=== PATIENT | female | born 1955 | race Caucasian/White ===

== ENCOUNTER → 2017-07-12 | Outpatient (CLI) | payer MEDICARE | LOC: M RAD 12:57 | DX: J84.10 Pulmonary fibrosis, unspecified (principal); J44.1 Chronic obstructive pulmonary disease with (acute) exacerbation; R05 Cough; R06.02 Shortness of breath | CPT/HCPCS: 71046 ==

== ENCOUNTER → 2017-10-12 | Outpatient (REF) | payer MEDICARE, MEDICAID ==
[2017-10-12 17:14] LABS: INR 0.95; PARTIAL THROMBOPLASTIN TIME 29.7 SECONDS (26.8-37.9); PROTHROMBIN TIME 12.8 SECONDS (12.4-14.5)
[2017-10-16 10:09] LABS: HUMAN GROWTH HORMONE 0.1 ng/mL (0.0-10.0)
[2017-10-16 10:09] LABS: ADRENOCORTICOTROPHIC HORMONE 1.8 pg/mL (7.2-63.3)
== END ==
LOC: M LAB REF 16:24
DX: D44.3 Neoplasm of uncertain behavior of pituitary gland (principal)
CPT/HCPCS: 83003

== ENCOUNTER 2017-10-18 14:50 | Emergency (ER) | payer MEDICARE, MEDICAID ==
[2017-10-18 15:23] LABS: KETONE, URINE AUTO RFX NEGATIVE (NEGATIVE); LEUKOCYTE ESTERASE UR AUTO RFX NEGATIVE (NEGATIVE); NITRITE, URINE AUTO RFX NEGATIVE (NEGATIVE); RBC, URINE AUTO RFX 0 /HPF (0-3); SPECIFIC GRAVITY UR AUTO RFX 1.003 (1.002-1.035); SQUAM EPITHELIAL CELL UR AURFX 0 /HPF (0-6); WBC, URINE AUTO RFX 1 /HPF (0-3)
== END 2017-10-18 18:36 | disposition left against medical advice (07) ==
LOC: M ED 14:50
DX: Z53.21 Procedure and treatment not carried out due to patient leaving prior to being seen by health care provider (principal)

== ENCOUNTER → 2017-10-27 | Outpatient (CLI) | payer MEDICARE, MEDICAID ==
[2017-10-27 17:31] LABS: ANION GAP 7 MEQ/L (8-16); BLOOD UREA NITROGEN 20 MG/DL (7-18); CALCIUM LEVEL 8.9 MG/DL (8.8-10.2); CARBON DIOXIDE LEVEL 26 MEQ/L (21-32); CHLORIDE LEVEL 111 MEQ/L (98-107); CREATININE FOR GFR 1.14 MG/DL (0.55-1.30); GLOMERULAR FILTRATION RATE 51.2 (>45); GLUCOSE, FASTING 101 MG/DL (70-100); POTASSIUM SERUM 4.4 MEQ/L (3.5-5.1); SODIUM LEVEL 144 MEQ/L (136-145)
[2017-10-27 17:36] LABS: BASO # 0.1 10^3/uL (0.0-0.2); BASO % 0.8 % (0.0-1.0); EOS # 0.1 10^3/uL (0.0-0.50); EOS % 0.6 % (0.0-3.0); HEMATOCRIT 44.6 % (36.0-47.0); HEMOGLOBIN 14.5 g/dl (12.0-15.5); IMMATURE GRANULOCYTE % 0.4 % (0-3.0); LYMPH # 1.6 10^3/uL (1.5-4.5); LYMPH % 15.2 % (24.0-44.0); MEAN CORPUSCULAR HEMOGLOBIN 30.7 pg (27.0-33.0); MEAN CORPUSCULAR HGB CONC 32.5 g/dl (32.0-36.5); MEAN CORPUSCULAR VOLUME 94.5 fl (80.0-96.0); MONO # 0.4 10^3/uL (0.0-0.8); MONO % 3.8 % (0.0-5.0); NEUTROPHILS # 8.2 10^3/uL (1.8-7.7); NEUTROPHILS % 79.2 % (36.0-66.0); PLATELET COUNT, AUTOMATED 329 10^3/uL (150-450); RED BLOOD COUNT 4.72 10^6/uL (4.00-5.40); RED CELL DISTRIBUTION WIDTH 14.4 % (11.5-14.5); WHITE BLOOD COUNT 10.4 10^3/uL (4.0-10.0)
== END ==
LOC: M LRY 13:19
DX: E78.4 Other hyperlipidemia (principal); I10 Essential (primary) hypertension; R07.9 Chest pain, unspecified

== ENCOUNTER → 2017-10-27 | Outpatient (CLI) | payer MEDICARE, MEDICAID | LOC: M RAD 17:28 | DX: D49.7 Neoplasm of unspecified behavior of endocrine glands and other parts of nervous system (principal); N28.9 Disorder of kidney and ureter, unspecified; Z90.2 Acquired absence of lung [part of]; E78.4 Other hyperlipidemia; I10 Essential (primary) hypertension; R07.9 Chest pain, unspecified | CPT/HCPCS: 71250 ==

== ENCOUNTER 2017-12-14 22:14 | Emergency (ER) | payer MEDICARE, MEDICAID ==
[2017-12-14 22:24] LABS: BEDSIDE GLUCOSE 79 MG/DL (80-115)
[2017-12-14 22:30] LABS: ABG BASE EXCESS 3.2 (-2.0-2.0); ABG HCO3 25.4 MEQ/L (22.0-26.0); ABG O2 SATURATION 97.2 % (95.0-99.0); ABG PARTIAL PRESSURE O2 79.6 mmHg (75.0-100.0); ABG STANDARD HCO3 27.3 MEQ/L (22.0-26.0); ABG TOTAL CO2 26.4 MEQ/L (23.0-31.0); ABG pH (ARTERIAL) 7.517 UNITS (7.350-7.450)
[2017-12-14 22:34] LABS: BASO # 0.1 10^3/uL (0.0-0.2); BASO % 1.1 % (0.0-1.0); EOS # 0.2 10^3/uL (0.0-0.50); EOS % 1.5 % (0.0-3.0); HEMATOCRIT 45.9 % (36.0-47.0); HEMOGLOBIN 15.4 g/dl (12.0-15.5); IMMATURE GRANULOCYTE % 0.5 % (0-3.0); LYMPH # 2.8 10^3/uL (1.5-4.5); LYMPH % 23.2 % (24.0-44.0); MEAN CORPUSCULAR HGB CONC 33.6 g/dl (32.0-36.5); MEAN CORPUSCULAR VOLUME 92.4 fl (80.0-96.0); MONO # 0.8 10^3/uL (0.0-0.8); MONO % 6.3 % (0.0-5.0); NEUTROPHILS # 8.2 10^3/uL (1.8-7.7); NEUTROPHILS % 67.4 % (36.0-66.0); PLATELET COUNT, AUTOMATED 333 10^3/uL (150-450); RED BLOOD COUNT 4.97 10^6/uL (4.00-5.40); RED CELL DISTRIBUTION WIDTH 13.5 % (11.5-14.5); WHITE BLOOD COUNT 12.2 10^3/uL (4.0-10.0)
[2017-12-14 22:57] LABS: LACTIC ACID SEPSIS PROTOCOL 1.1 MMOL/L (0.4-2.0)
[2017-12-14 22:58] LABS: ANION GAP 4 MEQ/L (8-16); BLOOD UREA NITROGEN 18 MG/DL (7-18); CALCIUM LEVEL 8.8 MG/DL (8.8-10.2); CARBON DIOXIDE LEVEL 29 MEQ/L (21-32); CHLORIDE LEVEL 112 MEQ/L (98-107); CK-MB VALUE MASS 1.1 NG/ML (<3.6); CPK CREATINE PHOSPHOKINASE 51 U/L (26-192); CREATININE FOR GFR 0.98 MG/DL (0.55-1.30); GLOMERULAR FILTRATION RATE > 60.0 (>45); GLUCOSE, FASTING 79 MG/DL (70-100); MB/CK RELATIVE INDEX 2.15 (< OR =4); NT-PRO BNP 483 PG/ML (<125); POTASSIUM SERUM 4.4 MEQ/L (3.5-5.1); SODIUM LEVEL 145 MEQ/L (136-145); TROPONIN I < 0.02 NG/ML (< 0.10)
[2017-12-15] MEDS: KETOROLAC 30 MG/ML VIAL (J1885) IV (03:44)
== END 2017-12-15 05:01 | disposition left against medical advice (07) ==
LOC: M ED 12-15 05:01
DX: G45.9 Transient cerebral ischemic attack, unspecified (principal); E23.7 Disorder of pituitary gland, unspecified; Z87.891 Personal history of nicotine dependence; Z79.82 Long term (current) use of aspirin; Z79.899 Other long term (current) drug therapy; Z88.2 Allergy status to sulfonamides
CPT/HCPCS: J1885

== ENCOUNTER → 2018-02-27 | Outpatient (CLI) | payer MEDICARE, MEDICAID ==
[2018-02-27 21:03] LABS: ANION GAP 8 MEQ/L (8-16); BLOOD UREA NITROGEN 21 MG/DL (7-18); CALCIUM LEVEL 9.4 MG/DL (8.8-10.2); CARBON DIOXIDE LEVEL 26 MEQ/L (21-32); CHLORIDE LEVEL 111 MEQ/L (98-107); CREATININE FOR GFR 1.21 MG/DL (0.55-1.30); GLOMERULAR FILTRATION RATE 47.8 (>45); GLUCOSE, FASTING 88 MG/DL (70-100); POTASSIUM SERUM 4.8 MEQ/L (3.5-5.1); SODIUM LEVEL 145 MEQ/L (136-145)
== END ==
LOC: M LRY 15:00
DX: D49.6 Neoplasm of unspecified behavior of brain (principal)
CPT/HCPCS: 80048

== ENCOUNTER → 2018-04-11 | Outpatient (CLI) | payer MEDICARE, MEDICAID ==
[~2018-04-11] MED LIST: ISOVUE-370 76% 100ML VIAL (Q9967) As Ordered
== END ==
LOC: M RAD 17:11
DX: Z01.812 Encounter for preprocedural laboratory examination (principal); C34.91 Malignant neoplasm of unspecified part of right bronchus or lung; D49.1 Neoplasm of unspecified behavior of respiratory system; J84.10 Pulmonary fibrosis, unspecified; N28.1 Cyst of kidney, acquired; N28.89 Other specified disorders of kidney and ureter
CPT/HCPCS: Q9967

== ENCOUNTER → 2018-08-27 | Outpatient (CLI) | payer MEDICARE, MEDICAID ==
[~2018-08-27] MED LIST changes: +ADVA115A INH; +ECOT81TA5 PO; +GABA-843 PO; +GABA-845 PO; -ISOVUE-370 76% 100ML VIAL (Q9967) As Ordered; +METO1TAB33 PO; +METO1TAB7 PO; +NITR0.4S14 SL; +OMEP40CA2 PO; +PLAV1TAB2 PO; +PRAV40TA2 PO; +PRED5TA PO; +SUMA50TA2 PO; +TIZA2TA PO; +TROK1CAP5 PO; +VALS1TAB67 PO; +VENTAER INH; +VERA40TA PO
--- NOTE | 2018-08-27 11:48 | REP ---
DUPLEX DOPPLER EVALUATION RIGHT SUPRACLAVICULAR NECK: Real-time sonographic evaluation and duplex Doppler interrogation of the right neck soft tissues performed for a pulsatile mass. In this region the pulsatile mass corresponds to the right subclavian artery which is normal in caliber. Peak systolic velocity proximally in the right subclavian artery is 76.1 cm/s and distally 59.4 cm/s, with triphasic waveforms. No other adjacent mass is seen. IMPRESSION: Pulsatile "mass" in the right supraclavicular neck soft tissues corresponds to the right subclavian artery. This is normal in caliber. No mass or aneurysm is seen. Electronically Signed by Mark Link MD 08/27/2018 12:47 P
== END ==
LOC: M RAD 10:42
PROVIDERS: ATTEND Family Medicine
DX: R22.1 Localized swelling, mass and lump, neck (principal)

== ENCOUNTER → 2018-10-31 | Outpatient (CLI) | payer MEDICARE, MEDICAID ==
[2018-10-31 16:04] LABS: BASO # 0.1 10^3/uL (0.0-0.2); BASO % 0.9 % (0.0-1.0); EOS # 0.2 10^3/uL (0.0-0.50); HEMATOCRIT 47.6 % (36.0-47.0); HEMOGLOBIN 15.6 g/dl (12.0-15.5); LYMPH # 1.8 10^3/uL (1.5-4.5); LYMPH % 11.8 % (24.0-44.0); MEAN CORPUSCULAR HEMOGLOBIN 29.8 pg (27.0-33.0); MEAN CORPUSCULAR HGB CONC 32.8 g/dl (32.0-36.5); MONO # 0.6 10^3/uL (0.0-0.8); MONO % 4.1 % (0.0-5.0); NEUTROPHILS # 12.1 10^3/uL (1.8-7.7); NEUTROPHILS % 81.6 % (36.0-66.0); PLATELET COUNT, AUTOMATED 336 10^3/uL (150-450); RED BLOOD COUNT 5.23 10^6/uL (4.00-5.40); WHITE BLOOD COUNT 14.8 10^3/uL (4.0-10.0)
[2018-10-31 16:27] LABS: HEMOGLOBIN A1c 5.4 %
[2018-10-31 16:33] LABS: ALBUMIN 4.1 GM/DL (3.2-5.2); BILIRUBIN,TOTAL 0.4 MG/DL (0.2-1.0); CHOLESTEROL RISK RATIO 2.737 (<5); CREATININE FOR GFR 1.02 MG/DL (0.55-1.30); FREE T4 0.73 NG/DL (0.76-1.46); GLOMERULAR FILTRATION RATE 58.1 (>45); POTASSIUM SERUM 4.5 MEQ/L (3.5-5.1); THYROID STIMULATING HORMONE 0.813 uIU/ML (0.358-3.740); TOTAL PROTEIN 7.6 GM/DL (6.4-8.2); URIC ACID 5.2 MG/DL (2.6-6.0)
[2018-10-31 16:51] LABS: CORTISOL AM 7.8 UG/DL (4.3-22.4)
== END ==
LOC: M LAB 15:11
PROVIDERS: ATTEND Family Medicine
DX: R60.0 Localized edema (principal); G62.9 Polyneuropathy, unspecified; E27.49 Other adrenocortical insufficiency; N18.3 Chronic kidney disease, stage 3 (moderate); M79.672 Pain in left foot; R35.8 Other polyuria; I25.118 Atherosclerotic heart disease of native coronary artery with other forms of angina pectoris; M79.671 Pain in right foot; M54.81 Occipital neuralgia
CPT/HCPCS: 36415; 80053; 80061; 82533; 82607; 83036; 83880; 84439; 84443; 84550; 85025; G0463

== ENCOUNTER 2019-02-27 11:21 | Emergency (ER) | payer MEDICARE, MEDICAID ==
[~2019-02-27] VITALS: Ht 152.4 cm; Wt 58.2 kg
[2019-02-27] MEDS ORDERED: AMLO5TAB6 (11:51)
[2019-02-27] MEDS ORDERED: OMEP-218 (11:51)
[2019-02-27] MEDS ORDERED: IRBE150T12 (11:51)
[2019-02-27] MEDS ORDERED: ATOR80TA59 (11:51)
[2019-02-27] MEDS ORDERED: ONDANSETRON 4MG/2ML VIAL (J2405) IV ONE (12:00)
[2019-02-27 12:39] LABS: BASO # 0.1 10^3/uL (0.0-0.2); BASO % 0.9 % (0.0-1.0); EOS # 0.3 10^3/uL (0.0-0.5); EOS % 2.6 % (0.0-3.0); HEMATOCRIT 49.6 % (36.0-47.0); HEMOGLOBIN 16.2 g/dl (12.0-15.5); LYMPH # 2.1 10^3/uL (1.5-5.0); LYMPH % 17.1 % (24.0-44.0); MEAN CORPUSCULAR HEMOGLOBIN 30.4 pg (27.0-33.0); MEAN CORPUSCULAR HGB CONC 32.7 g/dl (32.0-36.5); MEAN CORPUSCULAR VOLUME 93.1 fl (80.0-96.0); MONO % 7.7 % (0.0-5.0); NEUTROPHILS # 8.8 10^3/uL (1.5-8.5); NEUTROPHILS % 70.8 % (36.0-66.0); PLATELET COUNT, AUTOMATED 359 10^3/uL (150-450); RED BLOOD COUNT 5.33 10^6/uL (4.00-5.40); WHITE BLOOD COUNT 12.5 10^3/uL (4.0-10.0)
[2019-02-27 12:58] LABS: ERYTHROCYTE SEDIMENTATION RATE 10 mm/hr (0-30)
[2019-02-27 13:13] LABS: CK-MB VALUE MASS 1.4 NG/ML (<3.6); CPK CREATINE PHOSPHOKINASE 52 U/L (26-192); MB/CK RELATIVE INDEX 2.69 (< OR =4); TROPONIN I < 0.02 NG/ML (< 0.10)
[2019-02-27] MEDS ORDERED: methylPREDNISolone INJ 125 MG/2 ML VIAL (J2930) IV ONE (13:15)
[2019-02-27] MEDS ORDERED: CYCLOBENZAPRINE 10 MG TAB PO ONE (13:15)
[2019-02-27] MEDS ORDERED: ACETAMINOPHEN TAB 650MG DOSE (2X325MG) PO ONE (13:15)
[2019-02-27 13:17] LABS: INFLUENZA A AMPLIFICATION NEGATIVE (NEGATIVE); INFLUENZA B AMPLIFICATION NEGATIVE (NEGATIVE)
[2019-02-27 13:18] LABS: ALBUMIN 3.9 GM/DL (3.2-5.2); BILIRUBIN,TOTAL 0.5 MG/DL (0.2-1.0); C REACTIVE PROTEIN QUANTITATIV 7.81 MG/DL (0.00-0.30); CALCIUM LEVEL 9.1 MG/DL (8.8-10.2); CREATININE FOR GFR 1.49 MG/DL (0.55-1.30); GLOMERULAR FILTRATION RATE 37.5 (>45); POTASSIUM SERUM 3.9 MEQ/L (3.5-5.1); THYROID STIMULATING HORMONE 1.04 uIU/ML (0.358-3.740); TOTAL PROTEIN 7.1 GM/DL (6.4-8.2)
[2019-02-27] MEDS ORDERED: ISOVUE-370 76% 100ML VIAL (Q9967) As Ordered ONE (13:45)
--- NOTE | 2019-02-27 14:19 | REP ---
CHEST, TWO VIEWS: Two views of the chest are performed. Comparison 12/14/2018 as well as other prior exams. There are stable bilateral fibrotic changes. Heart is not significantly enlarged. No new infiltrate is seen. There is mild stable biapical pleural thickening. There is chronic blunting of the left costophrenic angle. IMPRESSION: Stable chronic pleural and parenchymal scarring without evidence of acute pulmonary disease. Electronically Signed by Mark Link MD 02/28/2019 09:09 A
--- NOTE | 2019-02-27 15:53 | REP ---
CT pulmonary angiogram: With IV contrast. History: Chest pain, shortness of breath, rule out pulmonary embolus. The patient gives a history of lung cancer. Comparison studies: Comparison chest CT study April 11, 2018. There is also a comparison chest CT study from November 06, 2017. Contrast dose: 75 mL of Isovue [address] technique: Helical scanning is acquired and overlapping 1.5 mm and contiguous 3 mm axial images are reformatted. In addition, maximum intensity projection and multiplanar re-formation images are generated in sagittal and coronal imaging projections. CT pulmonary angiographic findings: There is good opacification in the pulmonary arterial tree. There is no CT evidence of pulmonary embolus. There is no evidence of aortic aneurysm or dissection. There is a post thoracotomy pulmonary parenchymal suture line with some adjacent linear fibrosis in the right upper lung zone. There is pleuroparenchymal fibrosis in the left upper lobe as well. This includes a somewhat nodular fibrotic appearing density which is stable since October 27, 2017. Mild linear fibrosis is seen in the left lower lobe and right lower lobe as well. No pleural or pericardial effusion is seen. There is no visible hilar or mediastinal mass or adenopathy. No adrenal lesion is observed. The visualized upper abdominal structures are unremarkable. No extrathoracic mass or adenopathy is observed. No bony destructive lesion. Impression: No CT evidence of pulmonary embolus. There are multifocal areas of pleuroparenchymal scarring which are unchanged. Electronically Signed by Tre Gao MD 02/27/2019 04:09 P
[2019-02-27] MEDS ORDERED: CYCL5TAB PO (16:05)
[2019-02-27] MEDS ORDERED: PRED10TA2 PO (16:05)
[2019-02-27 16:15] VITALS: BP 107/72
--- NOTE | 2019-02-27 20:45 | ECGEPIP ---
[facility] - ED Test Date: 2019-02-27 Pat Name: MAX MARTI Department: Room: - Gender: Female [employer] Design Branch: : 1955 Requested By: JONATHAN Youssef PA-C Order Number: [id number] Reading MD: Loulou Grimm Measurements Intervals [place] Rate: 65 P: 70 [place]: 171 QRS: 4 QRSD: 80 T: 55 QT: 411 QTc: 428 Interpretive Statements SINUS RHYTHM NONSPECIFIC ST & T-WAVE ABNORMALITY LOW VOLTAGE LIMB baseline artifact may affect interpretation NO PRIOR Electronically Signed on 02-27-2019 20:45:22 EDT by Loulou Grimm
== END 2019-02-27 17:00 | disposition home or self-care (01) ==
LOC: M ED 11:21 → EDBD 11:21 → M ED 17:00
DX: J44.1 Chronic obstructive pulmonary disease with (acute) exacerbation (principal); S13.4XXA Sprain of ligaments of cervical spine, initial encounter; X58.XXXA Exposure to other specified factors, initial encounter; K21.9 Gastro-esophageal reflux disease without esophagitis; Z79.52 Long term (current) use of systemic steroids; Z79.82 Long term (current) use of aspirin; Z79.899 Other long term (current) drug therapy; Z85.118 Personal history of other malignant neoplasm of bronchus and lung; Z87.891 Personal history of nicotine dependence; Z88.2 Allergy status to sulfonamides; Z88.5 Allergy status to narcotic agent; Z88.6 Allergy status to analgesic agent
CPT/HCPCS: 36415; 71046; 71275; 80053; 82550; 82553; 83605; 83880; 84443; 84484; 85025; 85379; 85652; 86140; 87502; 93005; 96374; 99285; J2930; Q9967

== ENCOUNTER → 2019-03-11 | Outpatient (REF) | payer MEDICARE, MEDICAID ==
[~2019-03-11] MED LIST changes: +AMLO5TAB6; +ATOR80TA59; +CYCL5TAB PO; +IRBE150T12; +OMEP-218; -OMEP40CA2 PO; +OMEP40CA97 PO; +PRED10TA2 PO
[2019-03-11 12:12] LABS: BASO # 0.1 10^3/uL (0.0-0.2); BASO % 1.1 % (0.0-1.0); EOS # 0.3 10^3/uL (0.0-0.5); EOS % 2.5 % (0.0-3.0); HEMATOCRIT 49.6 % (36.0-47.0); HEMOGLOBIN 15.8 g/dl (12.0-15.5); LYMPH # 3.5 10^3/uL (1.5-5.0); LYMPH % 28.1 % (24.0-44.0); MEAN CORPUSCULAR HEMOGLOBIN 29.5 pg (27.0-33.0); MEAN CORPUSCULAR HGB CONC 31.9 g/dl (32.0-36.5); MEAN CORPUSCULAR VOLUME 92.7 fl (80.0-96.0); MONO # 0.9 10^3/uL (0.0-0.8); MONO % 7.1 % (0.0-5.0); NEUTROPHILS # 7.6 10^3/uL (1.5-8.5); NEUTROPHILS % 60.6 % (36.0-66.0); PLATELET COUNT, AUTOMATED 368 10^3/uL (150-450); RED BLOOD COUNT 5.35 10^6/uL (4.00-5.40); WHITE BLOOD COUNT 12.5 10^3/uL (4.0-10.0)
[2019-03-11 12:28] LABS: ALBUMIN 3.7 GM/DL (3.2-5.2); BILIRUBIN,TOTAL 0.3 MG/DL (0.2-1.0); CREATININE FOR GFR 1.12 MG/DL (0.55-1.30); FREE T4 0.7 NG/DL (0.76-1.46); GLOMERULAR FILTRATION RATE 52.1 (>45); POTASSIUM SERUM 3.8 MEQ/L (3.5-5.1); THYROID STIMULATING HORMONE 1.03 uIU/ML (0.358-3.740); TOTAL PROTEIN 6.7 GM/DL (6.4-8.2)
== END ==
LOC: M SFHCPLAZ 09:35
PROVIDERS: ATTEND Family Medicine
DX: D72.829 Elevated white blood cell count, unspecified (principal); N18.3 Chronic kidney disease, stage 3 (moderate); E03.9 Hypothyroidism, unspecified
CPT/HCPCS: 36415; 80053; 84439; 84443; 85025; G0463

== ENCOUNTER → 2019-05-24 | Outpatient (CLI) | payer MEDICARE, MEDICAID ==
--- NOTE | 2019-05-24 11:39 | REPPI ---
Clinical: COPD. Technique: PA and lateral. Comparison: 02/27/2019. Findings: Mediastinum and cardiac silhouette are stable. Postsurgical changes involving the right upper lung zone are suspected along with diffuse chronic stable interstitial changes. No acute consolidation, effusion, or pneumothorax. Impression: Stable postsurgical and chronic changes. No acute process appreciated. Electronically Signed by Dawson Olmstead MD 05/24/2019 11:31 A
== END ==
LOC: M PLAIMG 11:16
PROVIDERS: ATTEND Family Medicine
DX: J44.1 Chronic obstructive pulmonary disease with (acute) exacerbation (principal)
CPT/HCPCS: 71046; G0463

== ENCOUNTER → 2019-05-30 | Outpatient (CLI) | payer MEDICARE, MEDICAID ==
--- NOTE | 2019-05-30 12:09 | REP ---
Clinical: Right neck swelling and tenderness. Technique: Real time day scale and color evaluation using linear high frequency transducer. Findings: Directed ultrasound examination at the site of maximal tenderness and swelling in the supraclavicular region demonstrates a somewhat vague nonencapsulated echogenic avascular focus measuring roughly 1.6 x 0.7 x 2.2 cm. Area is otherwise nonspecific by ultrasound and may represent small lipoma. Impression: A vague hyperechoic avascular area is nonspecific. Differential diagnosis includes but is not limited to lipoma. Consider contrast enhanced CT of the neck for further investigation. Electronically Signed by Dawson Olmstead MD 05/30/2019 12:00 P
== END ==
LOC: M RAD 09:05
PROVIDERS: ATTEND Family Medicine
DX: R22.1 Localized swelling, mass and lump, neck (principal)

== ENCOUNTER → 2019-05-31 | Outpatient (REF) | payer MEDICARE, MEDICAID ==
[2019-05-31 12:06] LABS: CALCIUM LEVEL 9.5 MG/DL (8.8-10.2); CREATININE FOR GFR 1.1 MG/DL (0.55-1.30); GLOMERULAR FILTRATION RATE 53.1 (>45); POTASSIUM SERUM 4.2 MEQ/L (3.5-5.1)
== END ==
LOC: M SFHCPLAZ 10:14
PROVIDERS: ATTEND Family Medicine
DX: N18.3 Chronic kidney disease, stage 3 (moderate) (principal)
CPT/HCPCS: 36415; 80048; G0463

== ENCOUNTER → 2019-06-04 | Outpatient (CLI) | payer MEDICARE, MEDICAID ==
[~2019-06-04] MED LIST changes: +ISOVUE-370 76% 100ML VIAL (Q9967) As Ordered ONE
--- NOTE | 2019-06-05 08:26 | REP ---
INDICATION: Neck swelling PROCEDURE: CT neck with and without contrast. COMPARISON STUDIES: MRI brain 12/15/2018. CT chest 04/11/2018. FINDINGS: Spinal alignment within normal limits. No evidence of lymphadenopathy. No evidence of abscess or focal inflammation. Oropharynx, nasopharynx, hypopharynx and larynx appear unremarkable. Craniovertebral junction is unremarkable. The osseous degenerative changes are within normal limits for age. As seen on the comparison MRI brain 12/15/2018, there is a mass lesion within the right aspect of the sella turcica. Visualized lung apices demonstrate scarring with mixed density, nodular mass lesion on the right that is grossly unchanged from the comparison CT chest 04/11/2019. IMPRESSION: 1. No definite mass lesion, abscess or lymphadenopathy within the neck. No evidence of focal inflammation or infection. 2. 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 3. Visualized lungs with scarring and nodular mixed density mass lesion on the right grossly unchanged from the comparison CT chest 04/11/2019. Electronically Signed by Walter Spence MD 06/05/2019 09:55 A
== END ==
LOC: M RAD 16:48
PROVIDERS: ATTEND Family Medicine
DX: R22.1 Localized swelling, mass and lump, neck (principal)
CPT/HCPCS: 70491; Q9967

== ENCOUNTER → 2019-07-10 | Outpatient (REF) | payer MEDICARE, MEDICAID ==
[~2019-07-10] MED LIST changes: -IRBE150T12; +IRBE150T7; -ISOVUE-370 76% 100ML VIAL (Q9967) As Ordered ONE
[2019-07-10 16:00] LABS: BASO # 0.1 10^3/uL (0.0-0.2); BASO % 0.9 % (0.0-1.0); EOS # 0.2 10^3/uL (0.0-0.5); EOS % 1.3 % (0.0-3.0); HEMATOCRIT 48.3 % (36.0-47.0); HEMOGLOBIN 15.7 g/dl (12.0-15.5); LYMPH # 1.6 10^3/uL (1.5-5.0); LYMPH % 11.6 % (24.0-44.0); MEAN CORPUSCULAR HEMOGLOBIN 29.3 pg (27.0-33.0); MEAN CORPUSCULAR HGB CONC 32.5 g/dl (32.0-36.5); MEAN CORPUSCULAR VOLUME 90.1 fl (80.0-96.0); MONO # 0.7 10^3/uL (0.0-0.8); MONO % 5.1 % (0.0-5.0); NEUTROPHILS # 11.3 10^3/uL (1.5-8.5); NEUTROPHILS % 80.2 % (36.0-66.0); PLATELET COUNT, AUTOMATED 415 10^3/uL (150-450); RED BLOOD COUNT 5.36 10^6/uL (4.00-5.40); WHITE BLOOD COUNT 14.1 10^3/uL (4.0-10.0)
[2019-07-10 16:03] LABS: APPEARANCE, URINE CLEAR (CLEAR); BACTERIA, URINE AUTO NEGATIVE (NEGATIVE); BILIRUBIN, URINE AUTO NEGATIVE (NEGATIVE); BLOOD, URINE BLOOD NEGATIVE (NEGATIVE); COLOR, URINE STRAW (YELLOW); GLUCOSE, URINE (UA) AUTO NEGATIVE (NEGATIVE); KETONE, URINE AUTO NEGATIVE (NEGATIVE); LEUKOCYTE ESTERASE, URINE AUTO NEGATIVE (NEGATIVE); MUCUS, URINE SMALL (NEGATIVE); NITRITE, URINE AUTO NEGATIVE (NEGATIVE); PROTEIN, URINE AUTO NEGATIVE (NEGATIVE); RBC, URINE AUTO 2 /HPF (0-3); SPECIFIC GRAVITY URINE AUTO 1.003 (1.002-1.035); SQUAMOUS EPITHELIAL CELL UR AU 1 /HPF (0-6); UROBILINOGEN, URINE AUTO 0.2 mg/dL (0.0-2.0); WBC, URINE AUTO 1 /HPF (0-3)
[2019-07-10 16:23] LABS: CALCIUM LEVEL 9.6 MG/DL (8.8-10.2); CREATININE FOR GFR 1.01 MG/DL (0.55-1.30); FREE T4 0.84 NG/DL (0.76-1.46); GLOMERULAR FILTRATION RATE 58.6 (>45); POTASSIUM SERUM 4.4 MEQ/L (3.5-5.1); THYROID STIMULATING HORMONE 0.685 uIU/ML (0.358-3.740)
== END ==
LOC: M SFHCPLAZ 13:47
PROVIDERS: ATTEND Family Medicine
DX: R22.1 Localized swelling, mass and lump, neck (principal); R35.0 Frequency of micturition; Z79.899 Other long term (current) drug therapy
CPT/HCPCS: 36415; 80048; 81001; 84439; 84443; 85025; 87086; G0463

== ENCOUNTER 2019-09-20 23:07 | Emergency (ER) | payer MEDICARE, MEDICAID ==
[2019-09-20 23:18] VITALS: BP 140/81
[2019-09-20] MEDS ORDERED: SPIR12.9 PO (23:29)
[2019-09-20] MEDS ORDERED: LEVO75TA4 PO (23:29)
[2019-09-20] MEDS ORDERED: VENTAER PO (23:29)
[2019-09-20 23:48] LABS: BASO # 0.1 10^3/uL (0.0-0.2); BASO % 1.1 % (0.0-1.0); EOS # 0.4 10^3/uL (0.0-0.5); EOS % 3.2 % (0.0-3.0); HEMOGLOBIN 14.4 g/dl (12.0-15.5); LYMPH # 2.2 10^3/uL (1.5-5.0); LYMPH % 17.8 % (24.0-44.0); MEAN CORPUSCULAR HEMOGLOBIN 29.6 pg (27.0-33.0); MEAN CORPUSCULAR HGB CONC 32.7 g/dl (32.0-36.5); MEAN CORPUSCULAR VOLUME 90.3 fl (80.0-96.0); MONO # 0.9 10^3/uL (0.0-0.8); MONO % 7.6 % (0.0-5.0); NEUTROPHILS # 8.6 10^3/uL (1.5-8.5); NEUTROPHILS % 69.6 % (36.0-66.0); PLATELET COUNT, AUTOMATED 321 10^3/uL (150-450); RED BLOOD COUNT 4.87 10^6/uL (4.00-5.40); WHITE BLOOD COUNT 12.3 10^3/uL (4.0-10.0)
[2019-09-21 00:12] LABS: ALBUMIN 3.3 GM/DL (3.2-5.2); ALT/SGPT 22 U/L (12-78); BILIRUBIN,DIRECT 0.1 MG/DL (0.0-0.2); BILIRUBIN,TOTAL 0.4 MG/DL (0.2-1.0); BLOOD UREA NITROGEN 7 MG/DL (7-18); CALCIUM LEVEL 8.4 MG/DL (8.8-10.2); CARBON DIOXIDE LEVEL 25 MEQ/L (21-32); CHLORIDE LEVEL 109 MEQ/L (98-107); CREATININE FOR GFR 0.95 MG/DL (0.55-1.30); GLOMERULAR FILTRATION RATE > 60.0 (>45); GLUCOSE, FASTING 100 MG/DL (70-100); POTASSIUM SERUM 3.7 MEQ/L (3.5-5.1); SODIUM LEVEL 142 MEQ/L (136-145); TOTAL PROTEIN 6.6 GM/DL (6.4-8.2)
[2019-09-21] MEDS ORDERED: AZIT-12 PO (00:56)
[2019-09-21] MEDS ORDERED: PRED20TA PO (00:56)
[2019-09-21] MEDS ORDERED: AZITHROMYCIN 250MG TABLET PO ONE (01:00)
[2019-09-21] MEDS ORDERED: methylPREDNISolone INJ 40 MG/1 ML VIAL (J2920) IV ONE (01:00)
--- NOTE | 2019-09-21 09:00 | ECGEPIP ---
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
--- NOTE | 2019-09-21 10:21 | REP ---
CHEST SINGLE VIEW: Single view of the chest is performed and compared to a prior study of 05/24/2019. No acute infiltrate is seen. There is mild pleural and parenchymal scarring in the left upper lobe. The heart does not appear to be significantly enlarged. Mediastinal silhouette is unchanged. IMPRESSION: No acute pulmonary disease. Electronically Signed by Mark Link MD 09/21/2019 10:53 A
--- NOTE | 2019-09-21 10:22 | REP ---
PELVIS AND LEFT HIP: AP view of the pelvis and AP and frogleg views of the left hip are performed and demonstrate no fracture, dislocation, or intrinsic bone disease. IMPRESSION: No fracture or dislocation. Electronically Signed by Mark Link MD 09/21/2019 10:53 A
== END 2019-09-21 01:09 | disposition home or self-care (01) ==
LOC: M ED 23:07
DX: M70.62 Trochanteric bursitis, left hip (principal); J44.1 Chronic obstructive pulmonary disease with (acute) exacerbation; I10 Essential (primary) hypertension; F17.200 Nicotine dependence, unspecified, uncomplicated; Z85.118 Personal history of other malignant neoplasm of bronchus and lung; Z90.2 Acquired absence of lung [part of]; Z88.2 Allergy status to sulfonamides; Z88.6 Allergy status to analgesic agent
CPT/HCPCS: 36415; 71045; 73502; 80048; 80076; 85025; 93005; 93041; 94760; 96374; 99285; J2920

== ENCOUNTER 2020-04-25 15:41 | Emergency (ER) | payer MEDICARE, MEDICAID ==
[~2020-04-25] VITALS: Ht 152.4 cm; Wt 59.1 kg
[~2020-04-25 15:41] MED LIST changes: +AMLO1TAB24; -AMLO5TAB6; +AZIT-12 PO; +LEVO75TA4 PO; +PRED20TA PO; +SPIR12.9 PO; +VENTAER PO
[2020-04-25 15:50] VITALS: BP 141/87
[2020-04-25] MEDS ORDERED: BOOSTRIX/ADACEL VACCINE (DIPHTH/PERTUSS/ACELL/TETANUS) 0.5ML SYR IM ONE (17:00)
[2020-04-25] MEDS ORDERED: LIDOCAINE 1% MDV 20ML VIAL INFIL ONE (17:30)
[2020-04-25] MEDS ORDERED: DERMABOND TOPICAL SKIN ADHESIVE TOP ONE (17:45)
--- NOTE | 2020-04-25 18:33 | REP ---
INDICATION: laceration COMPARISON: None. TECHNIQUE: AP, lateral, bilateral oblique views left 2nd digit. FINDINGS: The osseous structures and joint spaces are intact and there is no evidence for acute fracture or dislocation. No subcutaneous emphysema or radiodense foreign body. IMPRESSION: No foreign body. No fracture. <Electronically signed by Dawson Olmstead > 04/25/20 [id number]
== END 2020-04-25 18:44 | disposition home or self-care (01) ==
LOC: EDBD 15:41 → M ED 15:41
DX: S61.311A Laceration without foreign body of left index finger with damage to nail, initial encounter (principal); W26.0XXA Contact with knife, initial encounter; Y92.018 Other place in single-family (private) house as the place of occurrence of the external cause; Y93.G9 Activity, other involving cooking and grilling; I10 Essential (primary) hypertension; J44.9 Chronic obstructive pulmonary disease, unspecified; E78.5 Hyperlipidemia, unspecified; K21.9 Gastro-esophageal reflux disease without esophagitis; Z79.899 Other long term (current) drug therapy; Z79.82 Long term (current) use of aspirin; Z79.01 Long term (current) use of anticoagulants; Z88.1 Allergy status to other antibiotic agents; Z88.2 Allergy status to sulfonamides; Z88.5 Allergy status to narcotic agent; Z87.891 Personal history of nicotine dependence

== ENCOUNTER → 2020-06-12 | Outpatient (CLI) | payer MEDICARE, MEDICAID ==
[~2020-06-12] MED LIST changes: +GABA-282 PO; -GABA-843 PO
[2020-06-12 10:42] LABS: CREATININE FOR GFR 1.05 MG/DL (0.55-1.30); GLOMERULAR FILTRATION RATE 55.8 (>45)
== END ==
LOC: M LAB 09:29
PROVIDERS: ATTEND Neurological Surgery
DX: Z13.89 Encounter for screening for other disorder (principal); D35.2 Benign neoplasm of pituitary gland; I10 Essential (primary) hypertension

== ENCOUNTER → 2020-10-16 | Outpatient (CLI) | payer MEDICARE, MEDICAID ==
[~2020-10-16] MED LIST changes: +GABA-283 PO; -GABA-845 PO
--- NOTE | 2020-10-16 11:21 | REP ---
INDICATION: PAIN. COMPARISON: Comparison radiographs of the left humerus September 21, 2020.. TECHNIQUE: Three views. FINDINGS: The left glenohumeral and acromioclavicular joints remain normally aligned. There is mild narrowing of the AC joint. There is diffuse osteopenia. No fracture or bony destructive lesion is seen. IMPRESSION: Diffuse osteopenia. Osteoarthritic narrowing of the AC joint. No acute bony abnormality. <Electronically signed by Gavin Gao > 10/16/20 [id number]
== END ==
LOC: M SOG 10:54
PROVIDERS: ATTEND Orthopaedic Surgery Sports Medicine
DX: M85.812 Other specified disorders of bone density and structure, left shoulder (principal); M19.012 Primary osteoarthritis, left shoulder

== ENCOUNTER → 2020-11-19 | Outpatient (CLI) | payer MEDICARE, MEDICAID ==
[~2020-11-19] MED LIST changes: +OMEP40CA4 PO; -OMEP40CA97 PO
--- NOTE | 2020-11-20 09:14 | REP ---
INDICATION: IMPINGEMENT SYNDROME LT SHOULDER. COMPARISON: Radiographs 10/16/2020, CT chest 09/21/2020. TECHNIQUE: Coronal oblique T1, T2 fat sat, sagittal oblique T2 fat sat, axial T2 fat sat, gradient echo. FINDINGS: Rotator cuff: There is mild supraspinatus tendinopathy/tendinitis. Acromioclavicular joint: There are mild hypertrophic degenerative changes of the acromioclavicular joint. Acromion: Type 2 downward sloping. Biceps Tendon: In bicipital groove, no tenosynovitis. Hill Sach's deformity: None. Deltoid muscle: No abnormal signal. Biceps labral complex: Intact. Labrum: No tear. Cartilage: There is chondromalacia of the glenohumeral joint. Bone marrow: There is a large mass arising from the superior glenoid. This measures approximately 4.6 x 6.0 x 4.6 cm. There is adjacent marrow edema in the glenoid. There is mass effect on the supraspinatus muscle. There is surrounding soft tissue edema. Joint fluid: No effusion. A soft tissue nodule is seen superior to the clavicle measuring approximately 1.8 cm in diameter. IMPRESSION: Large mass arising from the superior bony glenoid likely a metastatic bone lesion. There is adjacent marrow edema in the bony glenoid and surrounding soft tissue edema. A suspicious soft tissue nodule is seen superior to the left clavicle 1.8 cm in diameter. <Electronically signed by Mark Link > 11/20/20 [id number]
== END ==
LOC: M RAD 17:01
PROVIDERS: ATTEND Orthopaedic Surgery Sports Medicine
DX: M75.42 Impingement syndrome of left shoulder (principal)

== ENCOUNTER 2020-11-24 14:08 | Inpatient (IN) | payer MEDICARE, MEDICAID ==
[~2020-11-24] VITALS: Ht 152.4 cm; Wt 57.3 kg
[~2020-11-24 14:08] MED LIST changes: -AMLO1TAB24; +AMLO1TAB24 PO; -ATOR80TA59; +ATOR80TA59 PO; -VENTAER PO
[2020-11-24] MEDS ORDERED: methylPREDNISolone 125MG 2ML VIAL IV ONE (16:10)
[2020-11-24] MEDS: COMBIVENT RESPIMAT 100-20MCG INHALER 4GM INH SCH ×2 (16:24→17:27)
--- NOTE | 2020-11-24 16:45 | REP ---
INDICATION: DYSPNEA/COUGH COMPARISON: 09/21/2020 TECHNIQUE: Portable AP view of the chest FINDINGS: Diffuse chronic interstitial changes are appreciated. There is a large left perihilar/suprahilar masslike consolidation which appears significantly increased from prior examination. No effusion. No pneumothorax. Further evaluation of the mediastinum and cardiac silhouette is limited due to overlying opacities. Skeletal structures intact. IMPRESSION: Suspicious area of mass/consolidation in the left perihilar/suprahilar region. <Electronically signed by Dawson Olmstead > 11/24/20 [id number]
[2020-11-24 17:06] LABS: BASO # 0.1 10^3/uL (0.0-0.2); BASO % 0.8 % (0.0-1.0); EOS # 0.2 10^3/uL (0.0-0.5); EOS % 1.4 % (0.0-3.0); HEMOGLOBIN 14.6 g/dl (12.0-15.5); LYMPH # 2.1 10^3/uL (1.5-5.0); LYMPH % 14.4 % (24.0-44.0); MEAN CORPUSCULAR HEMOGLOBIN 30.9 pg (27.0-33.0); MEAN CORPUSCULAR HGB CONC 32.4 g/dl (32.0-36.5); MEAN CORPUSCULAR VOLUME 95.3 fl (80.0-96.0); MONO # 0.8 10^3/uL (0.0-0.8); MONO % 5.3 % (2.0-8.0); NEUTROPHILS # 11.1 10^3/uL (1.5-8.5); NEUTROPHILS % 77.4 % (36.0-66.0); RED BLOOD COUNT 4.72 10^6/uL (4.00-5.40); WHITE BLOOD COUNT 14.4 10^3/uL (4.0-10.0)
[2020-11-24 17:25] LABS: VENOUS BASE EXCESS 1.4 (-2.0-2.0); VENOUS HCO3 27.6 MEQ/L (23.0-27.0); VENOUS O2 SATURATION 82.1 % (60.0-80.0); VENOUS PARTIAL PRESSURE CO2 49.2 mmHg (38.0-50.0); VENOUS PARTIAL PRESSURE O2 44.2 mmHg (30.0-50.0); VENOUS PH 7.367 UNITS (7.330-7.430); VENOUS STANDARD HCO3 25.3 MEQ/L; VENOUS TOTAL CO2 29.1 MEQ/L (24.0-28.0)
[2020-11-24 17:56] LABS: PLATELET COUNT, AUTOMATED 413 10^3/uL (150-450)
[2020-11-24 17:59] LABS: ALBUMIN 3.9 GM/DL (3.2-5.2); ALT/SGPT 19 U/L (12-78); BILIRUBIN,DIRECT 0.2 MG/DL (0.0-0.2); BILIRUBIN,TOTAL 0.6 MG/DL (0.2-1.0); BLOOD UREA NITROGEN 19 MG/DL (7-18); CALCIUM LEVEL 9.8 MG/DL (8.8-10.2); CARBON DIOXIDE LEVEL 27 MEQ/L (21-32); CHLORIDE LEVEL 104 MEQ/L (98-107); CK-MB VALUE MASS < 1.0 NG/ML (<3.6); CPK CREATINE PHOSPHOKINASE 76 U/L (26-192); CREATININE FOR GFR 0.95 MG/DL (0.55-1.30); GLOMERULAR FILTRATION RATE > 60.0 (>45); GLUCOSE, FASTING 93 MG/DL (70-100); MB/CK RELATIVE INDEX 1.32 (< OR =4); NT-PRO BNP 287 PG/ML (<125); POTASSIUM SERUM 4.8 MEQ/L (3.5-5.1); SODIUM LEVEL 141 MEQ/L (136-145); THYROID STIMULATING HORMONE 0.407 uIU/ML (0.358-3.740); THYROXINE (T4) 6.4 UG/DL (4.5-12.0); TOTAL PROTEIN 7.3 GM/DL (6.4-8.2); TROPONIN I < 0.02 NG/ML (< 0.10)
[2020-11-24] MEDS ORDERED: ISOVUE-370 76% 100ML VIAL As Ordered ONE (18:09)
[2020-11-24] MEDS ORDERED: OMEP-218 PO (19:05)
[2020-11-24] MEDS ORDERED: IRBE150T7 PO (19:05)
[2020-11-24] MEDS ORDERED: ALBUTEROL 90 MCG/ACT 8GM HFA INHALER INH PRN (19:25)
--- NOTE | 2020-11-24 19:30 | REPVR ---
PROCEDURE INFORMATION: Exam: CTA Chest With Contrast Exam date and time: 11/24/2020 6:15 PM Age: 65 years old Clinical indication: Other: Chest pain/ mass TECHNIQUE: Imaging protocol: Computed tomographic angiography of the chest with contrast. 3D rendering (Not supervised by radiologist): MIP and/or 3D reconstructed images were created by the technologist. Radiation optimization: All CT scans the at this facility use at least one of these dose optimization techniques: automated exposure control; mA and/or kV adjustment per patient size (includes targeted exams where dose is matched to clinical indication); or iterative reconstruction. Contrast material: ISOVUE 370; Contrast volume: 75 ml; Contrast route: INTRAVENOUS (IV); COMPARISON: CT ANGIO CHEST 09/21/2020 5:26 PM FINDINGS: Pulmonary arteries: There is opacification of the pulmonary arteries with no evidence of pulmonary embolus. There is severe narrowing of the left pulmonary artery with encasement by soft tissue neoplasm. There is subcarinal lymphadenopathy which has increased. There is some soft tissue density at the right suprahilar region with calcification and unchanged. There continues to be ventilation of both lungs. Aorta: There is opacification of the aorta which appears intact. Pleural spaces: There is prominent extension of the left apical portion of the mass to the superior and anterior pleura and chest wall. Pleural thickening and interstitial prominence is noted on the left. Heart: The heart is normal in size. Bones/joints: There is severe destructive change of bone involving the left proximal scapula. There is destruction of the coracoid process and anterior aspect of the glenoid. A large soft tissue mass extends into the muscles of the rotator cuff. There is also a new 2.2 cm supraclavicular lymph node. Left very large mass lesion: At the level of the left AP window the mass measures 12 cm in AP dimension and increasing by 5 cm. The transverse dimension is 6.5 cm and increasing by approximately 3 cm. This is consistent with an a norm is malignant mass with lymphadenopathy. Bony Mets to the left scapula. IMPRESSION: 1. In the last 2 months there is been interval development of a very large destructive lesion of the left scapula involving the coracoid and glenoid with a large soft tissue component. 2. The large hilar and suprahilar mass lesion now measuring 12 cm x 6.5 cm and encasing the left pulmonary artery with near occlusion of the left superior pulmonary artery. This has increased by approximately 5 cm. This is consistent with a malignant mass lesion with lymphadenopathy. 3. No evidence of pulmonary embolus. Electronically signed by: Shen Ding On 11/24/2020 19:29:37 PM
[2020-11-24] MEDS ORDERED: cefTRIAXone SOD 1 GM in D5W MINI-BAG PLUS 50 ML IV ONE (19:45)
--- NOTE | 2020-11-24 20:07 | HPEPDOC ---
General Date of Admission 11/24/29 Date of Service: Nov 24, 2020 Chief Complaint The patient is a 65-year-old female admitted with a reason for visit of Diff Breathing. Source: Patient Exam Limitations: No limitations History of Present Illness Patient is 65 years old female with past medical history of pituitary tumor status post resection and radiation, right lung carcinoma status post VATS, adrenal insufficiency on chronic prednisone, COPD, emphysema, coronary artery disease presented to hospital with increased shortness of breath. Patient sta ryan that for the past week she has been having increased shortness of breath associated with intermittent cough and dark yellowish sputum production. Her shirt folding machine operator Dr. Lemon found a left lung mass and recommended biopsy. Also patient reported left shoulder pain and she has a sling. In ER patient was found to have leukocytosis of 14.4, BNP 287. XR shows Suspicious area of mass/consolidation in the left perihilar/suprahilar region. Patient was consulted by oncology team, recommended to admit patient for lung biopsy Home Medications Scheduled Amlodipine Besylate (Amlodipine Besylate) 5 Mg Tablet, 5 MG PO DAILY, (Reported) Aspirin (Ecotrin) 81 Mg Tab, 81 MG PO DAILY, (Reported) Atorvastatin Calcium (Atorvastatin Calcium) 80 Mg Tablet, 80 MG PO DAILY, (Reported) Gabapentin (Gabapentin) 300 Mg Cap, 300 MG PO TID, (Reported) Irbesartan (Irbesartan) 150 Mg Tablet, 150 MG PO DAILY, (Reported) Levothyroxine Sodium (Levothyroxine Sodium) 75 Mcg Tablet, 75 MCG PO DAILY, ( Reported) Omeprazole (Omeprazole) 20 Mg Capsule.dr, 20 MG PO DAILY, (Reported) Prednisone (Prednisone) 5 Mg Tab, 5 MG PO DAILY, (Reported) Scheduled PRN Albuterol Sulfate (Ventolin Hfa) 18 Gm Hfa.aer.ad, 2 PUFFS INH Q4H PRN for SOB/WHEEZING, (Reported) Allergies Coded Allergies: Sulfa (Sulfonamide Antibiotics) (Unverified Allergy, Unknown, 11/24/20) codeine (Verified Adverse Reaction, Mild, N/V, 02/27/19) morphine (Verified Adverse Reaction, Mild, N/V, 02/27/19) oxycodone (Verified Adverse Reaction, Mild, N/V, 02/27/19) Past Medical History Medical History PITUITARY TUMOR S/P SURGERY X 2, RADIATION X 1; UNSUCCESSFULLY TREATED; MRI YEARLY WITH NEUROSURGERY - DR. 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 WOLF HLD HYPOTHYROIDISM Surgical History PITUITARY SURGERY 2003 SECOND PITUITARY TUMOR COMPLICATED BY L EYE BLINDNESS AND ADRENAL INSUFFICIENCY 2004 R LUNG BX COMPLICATED WITH COLLAPSED LUNG AND CHEST TUBE 06/2012 VATS FOR R LUNG 07/2012 COLONOSCOPY AT [facility] - NORMAL PER PATIENT 2015 Family History FATHER: , VALVE REPLACEMENT, CAD MOTHER: , CANCER BEHIND EYE, BREAST CANCER IN BOTH BREASTS, OVARIAN CANCER, DIABETES, BRAIN TUMOR SIBLINGS: SIBLINGS ARE ALL ; 1 BROTHER IN [place], 1 BROTHER OF HEART PROBLEMS, 1 BROTHER OF A BRAIN VIRUS, 1 SISTER OF MS, 1 SISTER HAD OVARIAN CANCER DAUGHTER(S): DOESN'T TALK TO 2 OF HER CHILDREN; 2 YOUNGEST SONS ARE HEALTHY MATERNAL GRAND MOTHER: OVARIAN CANCER 3 BROTHER(S) , 1 SISTER(S) . 3 SON(S) , 1 DAUGHTER(S) . DENIES KNOWN FAMILY HISTORY OF COLON CANCER. Social History * Smoker: former Smoker Alcohol: Denies Drugs: denies A-FIB/CHADSVASC A-FIB History Current/History of A-Fib/PAF?: No Current PO Anticoag Therapy: No Review of Systems Constitutional: Reports: Malaise, Weakness, Fatigue; Denies: Chills, Fever Eyes: Denies: Pain ENT: Denies: Head Aches Skin: Denies: Rash, Lesions Pulmonary: Reports: Dyspnea, Cough Cardiovascular: Denies: Chest Pain Gastrointestinal: Denies: Nausea, Vomiting Genitourinary: Denies: Dysuria Hematologic: Denies: Bruising, Bleeding Excessively Endocrine: Denies: Polydipsia Musculoskeletal: Denies: Neck Pain Neurological: Denies: Weakness Psych: Reports: Anxiety Physical Examination General Exam: Positive: Alert, Cooperative Eye Exam: Positive: PERRLA ENT Exam: Positive: Atraumatic Neck Exam: Positive: Supple; Negative: JVD Chest Exam: Positive: Rhonchi, Diminished Heart Exam: Positive: Rate Normal Telemetry: Positive: No significant arrhythmia Abdomen Exam: Positive: Normal bowel sounds Extremity Exam: Positive: Clubbing; Negative: Cyanosis Skin Exam: Positive: Nl turgor and temperature Neuro Exam: Positive: Strength at 5/5 X4 ext Psych Exam: Positive: Mental status NL, Anxiety, Oriented x 3 Vital Signs Vital Signs Date Time Temp Pulse Resp B/P (MAP) Pulse Ox O2 Delivery O2 Flow Rate FiO2 11/24/20 17:02 96.1 65 18 124/81 (95) 96 Room Air Laboratory Data Labs 24H Laboratory Tests 2 11/24/20 16:07: Anion Gap 10, Glomerular Filtration Rate > 60.0, Lactic Acid Level 1.6, Calcium Level 9.8, Total Bilirubin 0.6, Direct Bilirubin 0.2, Aspartate Amino Transf (AST/SGOT) 47H, Alanine Aminotransferase (ALT/SGPT) 19, Alkaline Phosphatase 128H, Total Creatine Kinase 76, Creatine Kinase MB < 1.0, Creatine Kinase MB Relative Index 1.32, Troponin I < 0.02, PR-Csz-M-Type Natriuretic Peptide 287H, Total Protein 7.3, Albumin 3.9, Albumin/Globulin Ratio 1.1L, Thyroid Stimulating Hormone (TSH) 0.407, Thyroxine (T4) 6.4 11/24/20 16:29: Blood Gas Bicarbonate Standard 25.3, Venous Blood pH 7.367, Venous Blood Partial Pressure CO2 49.2, Venous Blood Partial Pressure O2 44.2, Venous Blood Total Carbon Dioxide 29.1H, Venous Blood HCO3 27.6H, Venous Blood Oxygen Saturation 82.1H, Venous Blood Base Excess 1.4 11/24/20 16:49: Immature Granulocyte % (Auto) 0.7, Neutrophils (%) (Auto) 77.4H, Lymphocytes (%) (Auto) 14.4L, Monocytes (%) (Auto) 5.3, Eosinophils (%) (Auto) 1.4, Basophils (%) (Auto) 0.8, Neutrophils # (Auto) 11.1H, Lymphocytes # (Auto) 2.1, Monocytes # (Auto) 0.8, Eosinophils # (Auto) 0.2, Basophils # (Auto) 0.1, Nucleated Red Blood Cells % (auto) 0.0 CBC/BMP Laboratory Tests 11/24/20 16:07 11/24/20 16:49 Microbiology Microbiology 11/24/20 Blood Culture, Received Pending 11/24/20 Respiratory Virus Panel (PCR) ([facility]) - Final, Complete 11/24/20 Blood Culture, Received Pending Assessment/Plan Patient is 65 years old female with past medical history of pituitary tumor status post resection and radiation, right lung carcinoma status post VATS, a drenal insufficiency on chronic prednisone, COPD, emphysema, coronary artery disease presented to hospital with increased shortness of breath. Patient stated that for the past week she has been having increased shortness of breath associated with intermittent cough and dark yellowish sputum production. Her shirt folding machine operator Dr. Lemon found a left lung mass and recommended biopsy. In ER patient was found to have leukocytosis of 14.4, BNP 287. XR shows Suspicious area of mass/consolidation in the left perihilar/suprahilar region. Patient was consulted by oncology team, recommended to admit patient for lung biopsy Problems (1) Mass of left lung Status: Acute Problem Text: Patient was found to have left lung mass. I talked to radiologist, most likely left lung tumor mass with metastases to the scapula on CTA, no pulmonary emboli. Official report pending Patient will need lung biopsy. Most likely transbronchial. Consider shirt folding machine operator consult Oncology team recommended MRI of the brain after improvement of respiratory function (2) COPD with acute exacerbation Status: Acute Problem Text: Differential diagnosis includes COPD exacerbation versus postobstructive pneumonia Continue inhalers Incentive spirometry Ceftriaxone IV, doxycycline IV Prednisone 40 mg p.o. daily (3) Dyspnea Status: Acute Problem Text: Most likely secondary to lung mass superimposed with COPD exacerbation and emphysema Oxygen supplementation Inhalers (4) Hypertension Status: Chronic Problem Text: Blood pressure under control continue home cardioprotective medications (5) Hyperlipidemia Status: Chronic Problem Text: Continue statin (6) Palliative care encounter Status: Acute Problem Text: Appreciate/agree with palliative care consult (7) Left arm pain Status: Chronic Problem Text: Most likely secondary to metastasis to scapula and rotator cuff see CTA report, currently pending Pain management Plan / VTE VTE Prophylaxis Ordered?: Yes JILLIAN SPENCER DO Nov 24, 2020 20:07
[2020-11-24] MEDS: HEPARIN SOD (PORCINE) 5000UNITS/ML 1ML VIAL/SYRINGE SC SCH (21:23)
[2020-11-24] MEDS: GABAPENTIN 300 MG CAP PO SCH (21:24)
[2020-11-24 22:29] VITALS: BP 129/79
[2020-11-24] MEDS: DOXYCYCLINE HYCLATE 100 MG in D5W MINI-BAG PLUS 100 ML IV SCH (23:20)
[2020-11-24] MEDS: ACETAMINOPHEN TAB 650MG DOSE (2X325MG) PO PRN (23:25)
[2020-11-25] MEDS: ADVAIR HFA 230/21MCG INHALER INH SCH ×3 (00:47→20:09)
[2020-11-25] MEDS: IPRATROPIUM 0.5MG/ALBUTEROL 2.5MG INH SOL UD 3ML (DUONEB) NEB SCH ×4 (00:48→20:09)
[2020-11-25] MEDS: LEVOTHYROXINE 75MCG TABLET (0.075MG) PO SCH (05:44)
[2020-11-25] MEDS: ACETAMINOPHEN TAB 650MG DOSE (2X325MG) PO PRN ×2 (05:49→19:31)
[2020-11-25 05:57] LABS: HEMATOCRIT 43.6 % (36.0-47.0); HEMOGLOBIN 14.1 g/dl (12.0-15.5); MEAN CORPUSCULAR HEMOGLOBIN 30.7 pg (27.0-33.0); MEAN CORPUSCULAR HGB CONC 32.3 g/dl (32.0-36.5); PLATELET COUNT, AUTOMATED 445 10^3/uL (150-450); RED BLOOD COUNT 4.59 10^6/uL (4.00-5.40); WHITE BLOOD COUNT 15.5 10^3/uL (4.0-10.0)
[2020-11-25 06:00] VITALS: BP 126/75
[2020-11-25 06:25] LABS: ALT/SGPT 16 U/L (12-78); BLOOD UREA NITROGEN 24 MG/DL (7-18); CALCIUM LEVEL 9.3 MG/DL (8.8-10.2); CARBON DIOXIDE LEVEL 25 MEQ/L (21-32); CHLORIDE LEVEL 107 MEQ/L (98-107); CREATININE FOR GFR 0.98 MG/DL (0.55-1.30); GLOMERULAR FILTRATION RATE > 60.0 (>45); GLUCOSE, FASTING 131 MG/DL (70-100); POTASSIUM SERUM 4.8 MEQ/L (3.5-5.1); SODIUM LEVEL 138 MEQ/L (136-145)
[2020-11-25 06:26] LABS: ALBUMIN 3.5 GM/DL (3.2-5.2); BILIRUBIN,TOTAL 0.3 MG/DL (0.2-1.0); MAGNESIUM LEVEL 2.4 MG/DL (1.8-2.4); TOTAL PROTEIN 6.7 GM/DL (6.4-8.2)
[2020-11-25] MEDS ORDERED: PROHANCE 279.3MG/ML 15ML VIAL As Ordered ONE (07:53)
--- NOTE | 2020-11-25 09:20 | REPVR ---
PROCEDURE INFORMATION: Exam: MR Head Without and With Contrast Exam date and time: 11/25/2020 8:06 AM Age: 65 years old Clinical indication: Metastatic or secondary malignancy of brain; Surgery type: Pituitary adenoma; Brain metastasis TECHNIQUE: Imaging protocol: MR of the head without and with intravenous contrast. Contrast material: PROHANCE; Contrast volume: 11 ml; Contrast route: INTRAVENOUS (IV); COMPARISON: No prior studies available for comparison at this time. FINDINGS: Brain: There is encephalomalacia in the right parietal lobe. There is no mass or abnormal enhancement in this area. There is moderate high signal abnormality in the periventricular white matter and centrum semiovale, best seen on the flair images. These changes are nonspecific but likely represent chronic small vessel ischemic change. Cerebral ventricles: Normal. No ventriculomegaly. Pituitary gland and sella: There is a 1.5 x 1.5 x 1.2 cm mass within the right sella, possibly extending into the right cavernous sinus. The pituitary stalk is displaced toward the left. A normal pituitary is not identified. Patient has a history of pituitary adenoma. Bones/joints: Unremarkable. Paranasal sinuses: Normal as visualized. No acute sinusitis. Mastoid air cells: Normal as visualized. No mastoid effusion. Orbital cavity: Unremarkable. Soft tissues: Unremarkable. IMPRESSION: 1. There is a 1.5 x 1.5 x 1.2 cm mass within the right sella, possibly extending into the right cavernous sinus. The pituitary stalk is displaced toward the left. A normal pituitary is not identified. Patient has a history of pituitary adenoma. Direct comparison to prior studies is recommended. Findings are consistent with residual/recurrent tumor. 2. There is encephalomalacia in the right parietal lobe. There is no mass or abnormal enhancement in this area. 3. There is moderate high signal abnormality in the periventricular white matter and centrum semiovale, best seen on the flair images. These changes are nonspecific but likely represent chronic small vessel ischemic change. Electronically signed by: Kali Paige On 11/25/2020 09:19:24 AM
[2020-11-25] MEDS: OMEPRAZOLE 20 MG CAP PO SCH (09:32)
[2020-11-25] MEDS: ASPIRIN 81MG ENTERIC TABLET PO SCH (09:32)
[2020-11-25] MEDS: HEPARIN SOD (PORCINE) 5000UNITS/ML 1ML VIAL/SYRINGE SC SCH (09:32)
[2020-11-25] MEDS: GABAPENTIN 300 MG CAP PO SCH ×3 (09:32→20:03)
[2020-11-25] MEDS: ATORVASTATIN 20 MG TAB PO SCH (09:32)
[2020-11-25] MEDS: predniSONE 20 MG TAB PO SCH (09:33)
[2020-11-25] MEDS: IRBESARTAN 150MG TAB PO SCH (09:33)
[2020-11-25] MEDS: amLODIPine 5 MG TAB PO SCH (09:33)
--- NOTE | 2020-11-25 11:05 | ECGEPIP ---
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
[2020-11-25] MEDS: DOXYCYCLINE HYCLATE 100 MG in D5W MINI-BAG PLUS 100 ML IV SCH ×2 (11:06→23:21)
--- NOTE | 2020-11-25 11:47 | IPNPDOC ---
Text Note Date of Service The patient was seen on 11/25/20. NOTE Subjective: -No acute events overnight, on 2L NC Objective: General Exam: NAD Eyes: EOMI, anicteric ENT: Atraumatic, MMM Neck: Supple, no JVD Chest: Diminished, has some rhonchi, no sendy crackles, on 2L NC Heart: RRR, no noted murmurs Abdomen: Normal bowel sounds throughout, soft, NTND Extremities: Has significant clubbing of nails, WWP, no LE edema Skin: Nl turgor and temperature Neuro: Strength at 5/5 X4 ext, CN 3-12 intact, grossly nonfocal examination Psych: AOx3 Laboratory Data WBC 15.5 hgb 14.1 platelets 445 na 138 K 4.8 Cr 0.98 Imaging: CTA chest: CT ANGIO CHEST 09/21/2020 5:26 PM FINDINGS: Pulmonary arteries: There is opacification of the pulmonary arteries with no evidence of pulmonary embolus. There is severe narrowing of the left pulmonary artery with encasement by soft tissue neoplasm. There is subcarinal lymphadenopathy which has increased. There is some soft tissue density at the right suprahilar region with calcification and unchanged. There continues to be ventilation of both lungs. Aorta: There is opacification of the aorta which appears intact. Pleural spaces: There is prominent extension of the left apical portion of the mass to the superior and anterior pleura and chest wall. Pleural thickening and interstitial prominence is noted on the left. Heart: The heart is normal in size. Bones/joints: There is severe destructive change of bone involving the left proximal scapula. There is destruction of the coracoid process and anterior aspect of the glenoid. A large soft tissue mass extends into the muscles of the rotator cuff. There is also a new 2.2 cm supraclavicular lymph node. Left very large mass lesion: At the level of the left AP window the mass measures 12 cm in AP dimension and increasing by 5 cm. The transverse dimension is 6.5 cm and increasing by approximately 3 cm. This is consistent with an a norm is malignant mass with lymphadenopathy. Bony Mets to the left scapula. IMPRESSION: 1. In the last 2 months there is been interval development of a very large destructive lesion of the left scapula involving the coracoid and glenoid with a large soft tissue component. 2. The large hilar and suprahilar mass lesion now measuring 12 cm x 6.5 cm and encasing the left pulmonary artery with near occlusion of the left superior pulmonary artery. This has increased by approximately 5 cm. This is consistent with a malignant mass lesion with lymphadenopathy. 3. No evidence of pulmonary embolus. Brain MRI: Brain: There is encephalomalacia in the right parietal lobe. There is no mass or abnormal enhancement in this area. There is moderate high signal abnormality in the periventricular white matter and centrum semiovale, best seen on the flair images. These changes are nonspecific but likely represent chronic small vessel ischemic change. Cerebral ventricles: Normal. No ventriculomegaly. Pituitary gland and sella: There is a 1.5 x 1.5 x 1.2 cm mass within the right sella, possibly extending into the right cavernous sinus. The pituitary stalk is displaced toward the left. A normal pituitary is not identified. Patient has a history of pituitary adenoma. Bones/joints: Unremarkable. Paranasal sinuses: Normal as visualized. No acute sinusitis. Mastoid air cells: Normal as visualized. No mastoid effusion. Orbital cavity: Unremarkable. Soft tissues: Unremarkable. IMPRESSION: 1. There is a 1.5 x 1.5 x 1.2 cm mass within the right sella, possibly extending into the right cavernous sinus. The pituitary stalk is displaced toward the left. A normal pituitary is not identified. Patient has a history of pituitary adenoma. Direct comparison to prior studies is recommended. Findings are consistent with residual/recurrent tumor. 2. There is encephalomalacia in the right parietal lobe. There is no mass or abnormal enhancement in this area. 3. There is moderate high signal abnormality in the periventricular white matter and centrum semiovale, best seen on the flair images. These changes are nonspecific but likely represent chronic small vessel ischemic change. CXR: Diffuse chronic interstitial changes are appreciated. There is a large left perihilar/suprahilar masslike consolidation which appears significantly increased from prior examination. No effusion. No pneumothorax. Further evaluation of the mediastinum and cardiac silhouette is limited due to overlying opacities. Skeletal structures intact. IMPRESSION: Suspicious area of mass/consolidation in the left perihilar/suprahilar region. Assessment: 65 years old W with past medical history of pituitary tumor s/p resection and radiation, right lung carcinoma status post VATS in 2012, adrenal insufficiency on chronic prednisone, COPD, emphysema, coronary artery disease who presented to hospital with increased shortness of breath i/s/o Dr. Lemon having found a left lung mass and recommended biopsy. Left lung mass: -Admitting physician spoke with radiology that noted the left lung tumor mass with metastases to the scapula on CTA, no pulmonary emboli. -Will like require transbronchial lung biopsy, will consult pulmonology today -MRI of brain per onc, showing residual/recurrent tumor with a history of pituitary adenoma, unfortunately without prior to compare at this time. No other noted disease. Leukocytosis with what appears to be acute SOB and cough, so potentially with a postobstructive PNA -continue ceftriaxone/doxy -procalcitonin -sputum Cx COPD with acute exacerbation i/s/o potential PNA Status: Acute -Continue advair BID, duonebs q6h -Incentive spirometry -Ceftriaxone IV, doxycycline IV for potential PNA -Prednisone 40 mg p.o. daily 2 Hypertension -continue home cardioprotective medications Hyperlipidemia -Continue statin Left arm pain -Most likely secondary to metastasis to scapula and rotator cuff -continue gabapentin VS,Fishbone, I+O VS, Fishbone, I+O Laboratory Tests 11/24/20 16:07 11/24/20 16:49 11/25/20 05:36 Vital Signs Date Time Temp Pulse Resp B/P (MAP) Pulse Ox O2 Delivery O2 Flow Rate FiO2 11/25/20 06:00 97.6 77 20 126/75 (92) 92 Nasal Cannula 2.0 I&O- Last 24 Hours up to 6 AM 11/25/20 05:59 Intake Total 50 ml Balance 50 ml MIREYA BAER MD Nov 25, 2020 09:43
[2020-11-25] MEDS: KETOROLAC 30 MG/ML 1ML VIAL IV PRN ×2 (13:36→20:03)
[2020-11-25] MEDS ORDERED: PROMETHAZINE 25 MG TAB PO PRN (13:45)
[2020-11-25] MEDS ORDERED: PILL CUTTER 1 EACH XX PRN (13:55)
[2020-11-25 14:00] VITALS: BP 124/70
--- NOTE | 2020-11-25 15:34 | CCN ---
CRITICAL CARE NOTE DATE: 11/25/2020 ADDENDUM: This is an addendum to the note already dictated by Dr. Schumacher. I agree with the assessment and plan that is already outlined by the resident. I personally interviewed the patient. She understands she is in likely extensive malignancy. We discussed bronchoscopy, the risks and benefits of bronchoscopy including bleeding, infection, injury to surrounding structure, pneumothorax, and . She has agreed to undergo bronchoscopy with endobronchial ultrasound. I am concerned for a squamous cell carcinoma versus less likely a small cell malignancy. I do believe this is most likely a primary cancer. In order to provide her better management of her pain, she may need radiation to the shoulder as there is likely metastatic disease there. The patient should have an outside PET scan at the time of discharge. Radiation oncology can be consulted either while in hospital or soon after discharge. The patient should also see medical oncology.
--- NOTE | 2020-11-25 18:23 | CR ---
PULMONARY CONSULTATION DATE: 11/25/2020 REASON FOR CONSULTATION: Left lung mass HISTORY OF PRESENT ILLNESS: Mrs. Coburn is a pleasant 65 y/o former smoker who presented to [facility] ER with a 2 month history of shortness of breath that has progressively worsened in the past week. She reports increased cough that's productive of more yellow sputum and sharp L sided chest pain that radiates to the back of her L shoulder and down her L arm with inspiration and cough. She also reports that her told her that the area around her lips looked blue and that her mentation was altered from her baseline and did not seem to know where she was and thereafter he brought her to the ER for further assessment. Her story dates back 2 months ago when her sob started and a CTA was obtained showing a new L suprahilar mass with adjacent adenopathy measuring roughly 3.5 x 3.5 cm. The adenopathy extended to the L hilum encasing and compressing the L pulmonary arterial segment without occlusion. Left hilar genoveva mass measured roughly 4x4cm. She followed outpt with Dr. Lemon, pulmonology who recommended a biopsy. This hospitalization, with worsening of shortness of breath, initial altered mental status that has since resolved, a repeat CTA showed significant increase in L sided hilar mass 12cmx6.5cm, as well as a new destructive lesion on L scapula, compared to the imaging from 2 months ago. On presentation she also had leukocytosis with a L shift which was thought could be from pneumonia vs. malignancy and she was put on antibiotics (rocephin and doxy). However, her symptoms of cough and sob have not improved and now requiring 2L NC to saturate between 88-92% and along with the enlarging L hilar mass, the pulmonary service was consulted for further recommendations. REVIEW OF SYSTEMS: Constitutional: Denies fever, chills, shaking chills. Reports a 18 Lb weight loss within the last 6 months. Decreased appetite. HEENT: Denies headache, head injury, neck pain, decreased hearing, vision changes, nasal discharge, nosebleeds, hoarseness, sore throat, lumps and bumps in the neck region. Respiratory: Increased cough productive of yellow sputum. Denies hemoptysis. Increased shortness of breath and sharp pains with inspiration and coughing in the L chest area radiating to the scapula and down the L arm Cardiovascular: positive for chest discomfort that is sharp in nature when she coughs or inspires, Denies any palpitations, any swelling in her extremities, PND, orthopnea GI: Denies any changes in bowel habits, rectal bleeding, constipation, diarrhea, heartburn. She does have loss of appetite. Musculoskeletal: She does have significant amount of sharp shoulder pain that radiates down her left arm as well as to the back of her scapula. There is swelling in the clavicular region on her left side. There is no redness or warmth to her joints on that side. The patient denies trauma to the area. Neurological: Denies any fainting, seizures, numbness, tingling, tremors, dizziness, or fainting. Endocrine: Denies any perfuse sweating, frequent urination or thirst. PAST MEDICAL HISTORY: 1. Pituitary adenoma, status post radiation. 2. Right upper lung carcinoma, status post VATS. 3. Chronic obstructive pulmonary disease. 4. Coronary artery disease, on Aspirin 81 mg daily. 5. Gastroesophageal reflux disease. 6. Hypertension. 7. Hyperlipidemia. 8. Adrenal insufficiency, on low dose, 5 mg Prednisone daily. 9. TIA. FAMILY HISTORY: Dad with coronary artery disease, valvular heart disease. Mom with hypertension, hyperlipidemia, brain tumor, bilateral breast cancer, smoker, lung cancer. SOCIAL HISTORY: The patient quit smoking in 2012. Prior to that she smoked one pack per day since 17 years of age. She denies alcohol use or illicit drug use. 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 pt had a cockatiel as pet for the past 8 years ALLERGIES: 1. Sulfa. 2. Sulfonamide. 3. Antibiotics. 4. Codeine. 5. Morphine. 6. Oxycodone. Intolerance to all above due to significant nausea and mild hives. PHYSICAL EXAMINATION: VITAL SIGNS: Temperature 97.6, heart rate 77, respirations 22, blood pressure 126/75, MAP of 92. Pulse oximetry 92% on 2 liters nasal cannula. GENERAL APPEARANCE: Anxious female, well nourished, well hydrated. HEENT: Her pupils are reactive to light, symmetric bilaterally. Mucous membranes are moist. Her tongue is midline. NECK: Cannot appreciate thyromegaly or significant lymphadenopathy in the cervical region, supraclavicular region or axillary region. LUNGS: She is wheezing throughout. There is no dullness to percussion. No rhonchi, rales appreciated. She is not using accessory muscles. There are no retractions appreciated. CARDIAC: Sinus rhythm with a heart rate of 77. Normal S1, S2. Did not appreciate any significant murmurs, rubs or gallops. Her PMI is not displaced. There is no JVP and no peripheral edema. ABDOMEN: Soft, nondistended, normoactive bowel sounds, nontender, no significant hepatosplenomegaly, hernia or mass appreciated. No bruits auscultated over the abdomen. SKIN: There is no clubbing, no cyanosis appreciated. No decubitus ulcers. She does have bruises in the right arm from IV lines as well as a bruise on her abdomen from subcutaneous shots. There is no livida reticularis on the skin of her lower extremities. I did not appreciate any jaundice or other rashes. MUSCULOSKELETAL/EXTREMITIES: There is soft tissue swelling in the left shoulder region underneath her clavicle on the left side. No fractures, cyanosis. Normal muscle tone. PSYCHIATRIC: She is teary eyed, alert and oriented x3, appropriate mood and affect and was conversational. LABORATORY STUDIES: White count 15.5, H&H 14.1/43.6, platelet count 445. Sodium 138, potassium 4.8, chloride 107, bicarbonate 25, BUN and creatinine 24/0.98. Fasting glucose 131, AST, ALT 42/16. Alkaline phosphatase 112, albumin 3.5. Calcium 9.3, magnesium 2.4. Lactic acid 1.6, procalcitonin pending. IMAGING: Brain MRI impression: there is a 1.5 by 1.5 by 1.2 cm mass within the right sella region, possibly extending into the right cavernous sinus. Pituitary stalk is displaced toward the left. Findings consistent with residual/recurrent tumor. There is encephalomalacia in the right parietal lobe. There is no mass or abnormal enhancement in this area. There is moderate high signal abnormality in the periventricular white matter in centrum semiovale, nonspecific chronic small vessel ischemic changes. Chest x-ray from 11/24/20 impression suspicious area of mass/consolidation in the left perihilar/suprahilar region. CTA of the chest with contrast from 11/24/20 impression large destructive lesion of left scapula involving the corticoid and glenoid with a large soft tissue component which has an interval development in the past 2 months. Large hilar and suprahilar mass lesion, now measuring 12 cm x 6.5 cm and encasing the left pulmonary artery with near occlusion of the left superior pulmonary artery. This has increased in size by approximately 5 cm. This is consistent with a malignant mass lesion with lymphadenopathy. No evidence of pulmonary embolus. ASSESSMENT AND PLAN: This is a 65-year-old female who presents with a 2-month history of shortness of breath that has significantly worsened in the past week with increased cough productive of yellow sputum. Her most recent CTA chest with IV ctx also shows a signficant enlargement of the L perihilar.suprahilar mass as well as a new destructive lesion seen in L scapular region likely from mets. Patient initially had leukocytosis with left shift and was given abx coverage for pneumonia; however, she continues to experience sigificant shortness of breath and significant sharp pains with inspiration. 1. Left lung mass This is suspicious for lung cancer, likely squamous cell carcinoma versus small cell carcinoma, although less likely the latter. The plan is bronchoscopy with endobronchial ultrasound tomorrow. The patient has been consented for the procedure and risks including pneumothorax, infection, bleeding and injury to other surrounding structures have been discussed with the patient. NPO midnight. 2. Leukocytosis which could be reactive due to steroids versus malignancy versus post obstructive pneumonia- would continue with her current antibiotic regimen of Rocephin and Doxycycline. Pt's been afebrile ProCalicitonin has been ordered and is pending. Sputum culture has been ordered and pending results. 3. [id number] chronic obstructive pulmonary disease exacerbation, potential pneumonia - continue antibiotics and continue Advair twice daily with DuoNebs q. 6 hours p.r.n. Continue Prednisone 40 daily. Continue oxygen therapy with 2 liters nasal cannula to titrate her oxygenation to 88% to 92%. 4. Left arm pain this could be possibly due to metastastatic disease to scapula region as noted in imaging above. Pain control with Tylenol, Toradol p.r.n. with Phenergan for nausea. She may benefit from rad/onc consultation for radiation therapy to the area for further mgmt with the pain. Would consider an outpatient PET scan as well. 5. DVT ppt: Heparin 6. GI ppx: omeprazole 7. CODE STATUS: FULL I, Darrel Sears, Conducted an independent history and physical. I agree with the assessment and plan as outlined above. MTDD
[2020-11-25 19:39] VITALS: BP 95/61
[2020-11-25] MEDS: cefTRIAXone SOD 1 GM in D5W MINI-BAG PLUS 50 ML IV SCH (20:03)
[2020-11-25 21:10] VITALS: BP 95/60
[2020-11-25 23:25] VITALS: O2SAT 96
[2020-11-26] VITALS (13 sets, daily range): BP systolic 107–140; BP diastolic 67–85; O2SAT 92–99
[2020-11-26] MEDS: IPRATROPIUM 0.5MG/ALBUTEROL 2.5MG INH SOL UD 3ML (DUONEB) NEB SCH ×4 (01:40→19:22)
[2020-11-26] MEDS: LEVOTHYROXINE 75MCG TABLET (0.075MG) PO SCH (05:30)
[2020-11-26] MEDS: KETOROLAC 30 MG/ML 1ML VIAL IV PRN ×2 (06:06→14:33)
[2020-11-26] MEDS: ADVAIR HFA 230/21MCG INHALER INH SCH ×2 (07:29→19:22)
[2020-11-26] MEDS: IRBESARTAN 150MG TAB PO SCH (07:56)
[2020-11-26] MEDS: predniSONE 20 MG TAB PO SCH (07:56)
[2020-11-26] MEDS: amLODIPine 5 MG TAB PO SCH (07:57)
[2020-11-26] MEDS: ATORVASTATIN 20 MG TAB PO SCH (07:57)
[2020-11-26] MEDS: ASPIRIN 81MG ENTERIC TABLET PO SCH (07:57)
[2020-11-26] MEDS: GABAPENTIN 300 MG CAP PO SCH ×3 (07:57→20:55)
[2020-11-26] MEDS: OMEPRAZOLE 20 MG CAP PO SCH (07:57)
[2020-11-26 09:43] LABS: HEMATOCRIT 42.6 % (36.0-47.0); HEMOGLOBIN 13.6 g/dl (12.0-15.5); MEAN CORPUSCULAR HEMOGLOBIN 30.9 pg (27.0-33.0); MEAN CORPUSCULAR HGB CONC 31.9 g/dl (32.0-36.5); MEAN CORPUSCULAR VOLUME 96.8 fl (80.0-96.0); PLATELET COUNT, AUTOMATED 461 10^3/uL (150-450); WHITE BLOOD COUNT 21.6 10^3/uL (4.0-10.0)
[2020-11-26 10:15] LABS: CALCIUM LEVEL 9.7 MG/DL (8.8-10.2); CREATININE FOR GFR 1.34 MG/DL (0.55-1.30); GLOMERULAR FILTRATION RATE 42.1 (>45); POTASSIUM SERUM 4.2 MEQ/L (3.5-5.1)
[2020-11-26] MEDS ORDERED: propofoL 200 MG/20 ML VIAL As Ordered ONE (10:20)
[2020-11-26] MEDS ORDERED: ROCURONIUM BROMIDE 50 MG/5 ML VIAL As Ordered ONE (10:20)
[2020-11-26] MEDS ORDERED: LIDOCAINE 2% 100MG/5ML SDV (FOR ANES.) As Ordered ONE (10:20)
[2020-11-26] MEDS ORDERED: dexameTHASONE 4 MG/ML 1ML VIAL (J1100 PER 1MG) As Ordered ONE (10:20)
[2020-11-26] MEDS ORDERED: fentaNYL 100 MCG/2 ML INJECTION (J3010) As Ordered ONE (10:20)
[2020-11-26] MEDS ORDERED: ONDANSETRON 4MG/2ML VIAL As Ordered ONE (10:20)
[2020-11-26] MEDS ORDERED: MIDAZOLAM INJ 2MG/2ML VIAL (J2250 PER 1MG) As Ordered ONE (10:21)
[2020-11-26] MEDS ORDERED: LABETALOL 100MG/20ML VIAL As Ordered ONE (10:44)
--- NOTE | 2020-11-26 12:15 | IPNPDOC ---
Text Note Date of Service The patient was seen on 11/26/20. NOTE Subjective: -No acute events overnight, on 1L NC Objective: General Exam: NAD Eyes: EOMI, anicteric ENT: Atraumatic, MMM Neck: Supple, no JVD Chest: Diminished, has some rhonchi, no sendy crackles, on 1L NC Heart: RRR, no noted murmurs Abdomen: Normal bowel sounds throughout, soft, NTND Extremities: Has significant clubbing of nails, WWP, no LE edema, L arm in sling Skin: Nl turgor and temperature Neuro: Strength at 5/5 X4 ext, CN 3-12 intact, grossly nonfocal examination Psych: AOx3 Laboratory Data: pending AM labs Imaging: CT ANGIO CHEST 09/21/2020 5:26 PM FINDINGS: Pulmonary arteries: There is opacification of the pulmonary arteries with no evidence of pulmonary embolus. There is severe narrowing of the left pulmonary artery with encasement by soft tissue neoplasm. There is subcarinal lymphadenopathy which has increased. There is some soft tissue density at the right suprahilar region with calcification and unchanged. There continues to be ventilation of both lungs. Aorta: There is opacification of the aorta which appears intact. Pleural spaces: There is prominent extension of the left apical portion of the mass to the superior and anterior pleura and chest wall. Pleural thickening and interstitial prominence is noted on the left. Heart: The heart is normal in size. Bones/joints: There is severe destructive change of bone involving the left proximal scapula. There is destruction of the coracoid process and anterior aspect of the glenoid. A large soft tissue mass extends into the muscles of the rotator cuff. There is also a new 2.2 cm supraclavicular lymph node. Left very large mass lesion: At the level of the left AP window the mass measures 12 cm in AP dimension and increasing by 5 cm. The transverse dimension is 6.5 cm and increasing by approximately 3 cm. This is consistent with an a norm is malignant mass with lymphadenopathy. Bony Mets to the left scapula. IMPRESSION: 1. In the last 2 months there is been interval development of a very large destructive lesion of the left scapula involving the coracoid and glenoid with a large soft tissue component. 2. The large hilar and suprahilar mass lesion now measuring 12 cm x 6.5 cm and encasing the left pulmonary artery with near occlusion of the left superior pulmonary artery. This has increased by approximately 5 cm. This is consistent with a malignant mass lesion with lymphadenopathy. 3. No evidence of pulmonary embolus. Brain MRI: Brain: There is encephalomalacia in the right parietal lobe. There is no mass or abnormal enhancement in this area. There is moderate high signal abnormality in the periventricular white matter and centrum semiovale, best seen on the flair images. These changes are nonspecific but likely represent chronic small vessel ischemic change. Cerebral ventricles: Normal. No ventriculomegaly. Pituitary gland and sella: There is a 1.5 x 1.5 x 1.2 cm mass within the right sella, possibly extending into the right cavernous sinus. The pituitary stalk is displaced toward the left. A normal pituitary is not identified. Patient has a history of pituitary adenoma. Bones/joints: Unremarkable. Paranasal sinuses: Normal as visualized. No acute sinusitis. Mastoid air cells: Normal as visualized. No mastoid effusion. Orbital cavity: Unremarkable. Soft tissues: Unremarkable. IMPRESSION: 1. There is a 1.5 x 1.5 x 1.2 cm mass within the right sella, possibly extending into the right cavernous sinus. The pituitary stalk is displaced toward the left. A normal pituitary is not identified. Patient has a history of pituitary adenoma. Direct comparison to prior studies is recommended. Findings are consistent with residual/recurrent tumor. 2. There is encephalomalacia in the right parietal lobe. There is no mass or abnormal enhancement in this area. 3. There is moderate high signal abnormality in the periventricular white matter and centrum semiovale, best seen on the flair images. These changes are nonspecific but likely represent chronic small vessel ischemic change. CXR: Diffuse chronic interstitial changes are appreciated. There is a large left perihilar/suprahilar masslike consolidation which appears significantly increased from prior examination. No effusion. No pneumothorax. Further evaluation of the mediastinum and cardiac silhouette is limited due to overlying opacities. Skeletal structures intact. IMPRESSION: Suspicious area of mass/consolidation in the left perihilar/suprahilar region. Assessment: 65 years old W with past medical history of pituitary tumor s/p resection and radiation, right lung carcinoma status post VATS in 2012, adrenal insufficiency on chronic prednisone, COPD, emphysema, coronary artery disease who presented to hospital with increased shortness of breath i/s/o Dr. Lemon having found a left lung mass and recommended biopsy. Left lung mass: -Admitting physician spoke with radiology that noted the left lung tumor mass with metastases to the scapula on CTA, no pulmonary emboli. -Getting bronch today with Dr. Pettit -consulted Dr. Martínez for scapula met with significant pain -MRI of brain per onc, showing residual/recurrent tumor with a history of pituitary adenoma, unfortunately without prior to compare at this time. No other noted disease. -will need onc follow up on discharge Leukocytosis with what appears to be acute SOB and cough, so potentially with a postobstructive PNA -continue ceftriaxone/doxy -procalcitonin mildly elevated -sputum Cx pending COPD with acute exacerbation i/s/o potential PNA Status: Acute -Continue advair BID, duonebs q6h -Incentive spirometry -Ceftriaxone IV, doxycycline IV for potential PNA -Prednisone 40 mg p.o. 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
[2020-11-26] MEDS ORDERED: CETACAINE SPRAY 5GM As Ordered ONE (12:20)
[2020-11-26] MEDS ORDERED: EPINEPHrine 1MG/10ML SYRINGE 1.5IN As Ordered ONE (12:21)
[2020-11-26] MEDS ORDERED: DOXYCYCLINE HYCLATE 100MG/10ML VIAL As Ordered ONE (13:00)
[2020-11-26] MEDS ORDERED: SUCCINYLCHOLINE 100 MG/5 ML SYRINGE (J0330) As Ordered ONE (13:09)
[2020-11-26] MEDS ORDERED: ePHEDrine SULFATE 25 MG/5 ML(5MG/ML) SYRINGE As Ordered ONE (13:09)
[2020-11-26] MEDS ORDERED: PHENYLephrine 500MCG 5ML (100MCG/ML) SYRINGE As Ordered ONE (13:09)
[2020-11-26] MEDS: DOXYCYCLINE HYCLATE 100 MG in D5W MINI-BAG PLUS 100 ML IV SCH ×2 (13:14→22:06)
[2020-11-26] MEDS ORDERED: SUGAMMADEX SODIUM 500 MG/5 ML VIAL (BRIDION) As Ordered ONE (13:20)
--- NOTE | 2020-11-26 13:53 | REP ---
INDICATION: POST OP IN PACU COMPARISON: 11/24/2020 TECHNIQUE: Portable AP view of the chest FINDINGS: Large left perihilar/suprahilar mass unchanged. Hilar adenopathy cannot be excluded. Visualized lung diallo demonstrate stable chronic interstitial changes. No definite effusion. No pneumothorax. IMPRESSION: No significant change from prior examination with large left suprahilar mass. <Electronically signed by Dawson Olmstead > 11/26/20 [id number]
[2020-11-26] MEDS ORDERED: HYDROMORPHONE HCL 0.5 MG/ 0.5 ML SYRINGE (J1170 PER 1) IV PRN (13:55)
[2020-11-26] MEDS ORDERED: LR 1,000 ML IV SCH (13:55)
[2020-11-26] MEDS ORDERED: ONDANSETRON 4MG/2ML VIAL IV PRN ×2 (13:55→16:25)
[2020-11-26] MEDS ORDERED: fentaNYL 100 MCG/2 ML INJECTION (J3010) IV PRN (13:55)
--- NOTE | 2020-11-26 14:53 | RO ---
OPERATIVE NOTE DATE OF OPERATION: 11/26/2020 PREOPERATIVE DIAGNOSIS: Left upper lobe mass. POSTOPERATIVE DIAGNOSIS: Left upper lobe mass. FINDINGS: Obstructive left upper airway from mass. PROCEDURE: Bronchoscopy with endobronchial ultrasound. SURGEON: Darrel Pettit DO, [facility] PRINCIPAL: None. SPECIMENS OBTAINED: 1. Endobronchial biopsy left upper lobe mass. 2. FNA left hilar node. ANESTHESIA: General. Please refer to their records for details. ESTIMATED BLOOD LOSS: Less than 5 mL. None replaced, none observed. COMPLICATIONS: None observed. DRAINS: None. DESCRIPTION OF PROCEDURE: After informed consent was reviewed with the patient in the preoperative area, she was brought back to OR #8. General anesthesia was initiated. The patient was intubated with 8.5 endotracheal tube. Case was then handed over to me. Time out was performed with two patient identifiers, identifying correct site, correct procedure and correlating name and date of with radiology films. 1T190 bronchoscope was then inserted into the airway. Trachea was fairly midline. Darlin was fairly sharp. Right mainstem bronchus had copious amounts of thick stringy mucous. RB1 through 10 had endobronchial mucous but no endobronchial lesions. Some banding, some pitting. Left mainstem bronchus was fairly normal up until the takeoff of the left upper lobe. Prior to the takeoff of the lingula there is significant abnormalities of the mucosa with tumor-like material protruding into the airway cutting off the airway to the left upper lobe and no airways can be seen but there is a patent sliver of airway that the bronchoscope could not pass through. The left lower lobe had no endobronchial lesions. LB6 through 10 was without endobronchial lesions but some mucous. Endobronchial biopsies were taken of the abnormal mucosa seen at the takeoff of the left upper lobe. Prior to biopsies 1% Epinephrine was applied to the area. After a few biopsies of the left upper lobe abnormality I performed endobronchial ultrasound, removed the 1T190 scope and placed the linear endobronchial ultrasound. FNA was taken of the left hilar nodes. Sample was sent for cell block. After adequate sampling endobronchial ultrasound was removed. 1T190 bronchoscope was replaced. I then proceeded to take additional biopsies of the endobronchial abnormality. After adequate specimen sampling hemostasis was assured, bronchoscope was removed. The patient was extubated. Postprocedure chest x-ray is pending.
[2020-11-26] MEDS ORDERED: PROMETHAZINE INJ 25 MG/ML VIAL (J2550) IV PRN (16:25)
--- NOTE | 2020-11-26 16:49 | CR.PDOC ---
General Date of Consultation: Nov 26, 2020 Referring Provider: MIREYA BAER MD Primary Care Physician: CORINNE SHUKLA MD Consultation REASON FOR CONSULTATION/CHIEF COMPLAINT: 65 [address] [facility] with increasng dyspnea. Sh has a histroy of pituitary tumor s/p resection, R lung carcinoma s/p VATS, adrenal insufficiency, COPD, CAD. Radiograph in ED showed suspicious area in the left perihilar/suprahilar region. Two months ago CTA showed L suprahilar mass with adjacent adenopathy extending to compress the L pulmonary arterial segment without oclusion. Repeated CTA showed increased hilar mass and desctructive lesion on the left scapula. She is very sensitive to opioids she reports and cannot tolerate morphine, codiene or oxycodone. She had a biopsy procedure done earlier today and was suffering from severe nausea and vomiting when I came to see her this afternoon. She received fentanyl and hydromorphone during the procedure. I am asked to see the patient and make recommendations to improve her pain and nausea. Chart indicates she is DNR. HISTORY OF PRESENT ILLNESS: as above ALLERGIES: Please see below. HOME MEDICATIONS: Please see below. PAST MEDICAL HISTORY: 1. pituitary tumor 2. L eye blindness 3. R lung ca s/p VATS 4. HTN 5. GERD, esophageal dysplasia 6. 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 seizures since pituitary tumor surgery 8. CAD 9. HLD 10. hypothyroidism PAST SURGICAL HISTORY: 1. pituitary adenoma excision, unable to exicse all, L eye blindness and adrenal insuff. 2. R lung biopsy, pneumothorax and chest tube placement FAMILY HISTORY: Father: d. CAD valve replacement Mother: d. cancer behind eye, breast cancer, DM, ovarian cancer, brain tumor Siblings: all B d in VN; I brother d. heart problems, 1 brother d of brain virus, 1 S d MS; 1 S d. ovrian cancer Children: 2 daughters 2 sons, A+W SOCIAL HISTORY: Marital status and/or living arrangements: lives with spouse in [place] Children: 4 Tobacco use:former ETOH: no Illicit drug use: IV drug use: no REVIEW OF SYSTEMS: CONSTITUTIONAL: fatigue, weakness HEENT: no changes or pain CARDIOVASCULAR: denies palpitations or chest pain RESPIRATORY: dyspnea, cough with sputum GENITOURINARY:denies dysuria. MUSCULOSKELETAL: pain anterior chest wall, scapular area GASTROINTESTINAL: nausea and vomiting, worse since procedure SKIN: denies reashes NEUROLOGICAL: weak, PSYCHIATRIC: anxious ENDOCRINE: hypothyroid, on [prednisone chronically HEMATOLOGIC/LYMPHATIC: lung cancer PHYSICAL EXAMINATION: VITAL SIGNS: Please see below. GENERAL APPEARANCE: female miserable with nausea and actively vomiting when I entered the room. I had to defer the rest of the exam due to her distress and confer with nursing about antiemetics. LABORATORY DATA: Please see below. ASSESSMENT/PLAN: 1. Opiate intolerance. Since she does not tolerate morphine or oxycodone, she may tolerate completely synthetic opioids better. This would be fentanyl or met hadone. She received fentanyl IV during her bronchospcopy but also received hydromorphone so it is unclear to me whether fentanyl is the cause of her terrible n/v. If a fentanyl patch is chosen, I would start at 12 mcg hr patch which is unlikely to manage her pain, but she is opiate naive and very sensitive to opiates. Tramadol could be considered but I doubt it would adequately manage her pain. Lastly low dose methadone may offer her some analgesia with less nausea and I would recommend a starting dose of 2.5 mg q8hr. 2. Nausea/vomiting: she will need to have antiemetics IV for now. She received po ondansetron just before I arrived but likely vomited it up. If ondansetron is not effective then consider droperidol 0.625 mg IV q 3 hr prn ( May not be able to give this on the floor ) or promethazine 25 mg IV q6hr prn. Ondsnetron 4 mg IV q4hr prn may help improve her nausea as well. Dr. Dodd changed ondansetron and phenergan to IV dosing which appeared to be somewhat helpful for her when I checked back. However, she was completely exhausted and not in any condition to have any discussion with me this afternoon. Dr. Dodd informed me that Nasrin's is having a lot of trouble accepting her likely dire diagnosis and poor prognosis. I can try to contact him by telephone and will ask Josefina Carrington [facility] who occasionally assists [facility] with psychosocial support if she might be able to speak with him since I will not be back in [place] until MondayDecember 01. Vital Signs/I&O Vital Signs Date Time Temp Pulse Resp B/P (MAP) Pulse Ox O2 Delivery O2 Flow Rate FiO2 11/26/20 16:00 97.4 76 21 130/85 (100) 91 Room Air 11/26/20 14:10 2.0 I&O- Last 24 Hours up to 6 AM 11/26/20 05:59 Intake Total 980 ml Balance 980 ml Laboratory Data Labs 24H Laboratory Tests 2 11/26/20 09:26: Nucleated Red Blood Cells % (auto) 0.0, Anion Gap 9, Glomerular Filtration Rate 42.1L, [place] Level 9.7 CBC/BMP Laboratory Tests 11/26/20 09:26 Microbiology Microbiology 11/25/20 Gram Stain - Final, Resulted 11/25/20 Sputum Culture, Resulted Pending 11/24/20 Blood Culture - Preliminary, Resulted No growth after 24 hours . All specim... 11/24/20 Respiratory Virus Panel (PCR) (KRYSTAL) - Final, Complete 11/24/20 Blood Culture - Preliminary, Resulted No growth after 24 hours . All specim... Allergies Coded Allergies: Sulfa (Sulfonamide Antibiotics) (Unverified Allergy, Unknown, 11/24/20) codeine (Verified Adverse Reaction, Mild, N/V, 02/27/19) morphine (Verified Adverse Reaction, Mild, N/V, 02/27/19) oxycodone (Verified Adverse Reaction, Mild, N/V, 02/27/19) Home Medications Scheduled Amlodipine Besylate (Amlodipine Besylate) 5 Mg Tablet, 5 MG PO DAILY, (Reported) Aspirin (Ecotrin) 81 Mg Tab, 81 MG PO DAILY, (Reported) Atorvastatin Calcium (Atorvastatin Calcium) 80 Mg Tablet, 80 MG PO DAILY, (Reported) Gabapentin (Gabapentin) 300 Mg Cap, 300 MG PO TID, (Reported) Irbesartan (Irbesartan) 150 Mg Tablet, 150 MG PO DAILY, (Reported) Levothyroxine Sodium (Levothyroxine Sodium) 75 Mcg Tablet, 75 MCG PO DAILY, (Reported) Omeprazole (Omeprazole) 20 Mg Capsule.dr, 20 MG PO DAILY, (Reported) Prednisone (Prednisone) 5 Mg Tab, 5 MG PO DAILY, (Reported) Scheduled PRN Albuterol Sulfate (Ventolin Hfa) 18 Gm Hfa.aer.ad, 2 PUFFS INH Q4H PRN for SOB/WHEEZING, (Reported) Shereen [facility] Nov 26, 2020 16:36
--- NOTE | 2020-11-26 17:28 | RADENCPD ---
Date/Time of Encounter Date of Encounter: Nov 26, 2020 Time of Encounter: 17:27 Encounter Discussed palliative RT to the left scapula lesions with patient. Simulation performed today. Treatment to commence tomorrow. Plan for 20 Gy in 5 fractions to the left shoulder Will resume treatment after long weekend (Monday12/01/20) as outpatient if she is discharged. Full note tomorrow AM. LIZ OVERTON MD Nov 26, 2020 17:28
[2020-11-26] MEDS: HEPARIN SOD (PORCINE) 5000UNITS/ML 1ML VIAL/SYRINGE SC SCH ×2 (20:55→20:56)
[2020-11-26] MEDS: cefTRIAXone SOD 1 GM in D5W MINI-BAG PLUS 50 ML IV SCH (20:55)
[2020-11-27] MEDS: IPRATROPIUM 0.5MG/ALBUTEROL 2.5MG INH SOL UD 3ML (DUONEB) NEB SCH ×4 (01:20→20:34)
[2020-11-27 02:00] VITALS: BP 106/70
[2020-11-27] MEDS: ACETAMINOPHEN TAB 650MG DOSE (2X325MG) PO PRN ×2 (05:39→23:26)
[2020-11-27] MEDS: LEVOTHYROXINE 75MCG TABLET (0.075MG) PO SCH (05:39)
[2020-11-27 06:00] VITALS: BP 120/76
[2020-11-27 06:31] LABS: HEMATOCRIT 39.5 % (36.0-47.0); MEAN CORPUSCULAR HEMOGLOBIN 31.9 pg (27.0-33.0); MEAN CORPUSCULAR HGB CONC 32.9 g/dl (32.0-36.5); MEAN CORPUSCULAR VOLUME 96.8 fl (80.0-96.0); PLATELET COUNT, AUTOMATED 401 10^3/uL (150-450); RED BLOOD COUNT 4.08 10^6/uL (4.00-5.40); WHITE BLOOD COUNT 17.3 10^3/uL (4.0-10.0)
[2020-11-27 06:53] LABS: BLOOD UREA NITROGEN 23 MG/DL (7-18); CALCIUM LEVEL 9.2 MG/DL (8.8-10.2); CARBON DIOXIDE LEVEL 27 MEQ/L (21-32); CHLORIDE LEVEL 108 MEQ/L (98-107); CREATININE FOR GFR 0.89 MG/DL (0.55-1.30); GLOMERULAR FILTRATION RATE > 60.0 (>45); GLUCOSE, FASTING 114 MG/DL (70-100); POTASSIUM SERUM 4.4 MEQ/L (3.5-5.1); SODIUM LEVEL 143 MEQ/L (136-145)
[2020-11-27] MEDS: ADVAIR HFA 230/21MCG INHALER INH SCH ×2 (07:38→20:34)
[2020-11-27] MEDS: ASPIRIN 81MG ENTERIC TABLET PO SCH (08:40)
[2020-11-27] MEDS: OMEPRAZOLE 20 MG CAP PO SCH (08:41)
[2020-11-27] MEDS: GABAPENTIN 300 MG CAP PO SCH ×3 (08:41→20:53)
[2020-11-27] MEDS: predniSONE 20 MG TAB PO SCH (08:42)
[2020-11-27] MEDS: ATORVASTATIN 20 MG TAB PO SCH (08:42)
--- NOTE | 2020-11-27 08:49 | RADONC.CN ---
Radiation Oncology Hx/Consult Radiation Oncology Consult Date of Service: Nov 27, 2020 Pt Identifier Nasrin Coburn is a 65 year old female with a history of tobacco use, prior right lung cancer s/p wedge resection 2012, and pituitary adenoma, who presented to the ED with intractable left shoulder pain and worsening SOB. She was found to have a large left sided mediastinal/lung mass and a large destructive metastasis in the left scapula which is the source of her pain. She is seen following bronchoscopy to establish a tissue diagnosis for consideration of palliative RT to the painful left shoulder metastasis. Diagnosis/Treatment History Oncologic History -History of pituitary adenoma s/p transsphenoidal resection -Also history of right lung cancer s/p VATS wedge resection in 2012 -Presented to the ED on 11/24/20 with increased CORADO and SOB at rest as well as left shoulder pain. -CT chest on 11/24/20 showed a 5 x 10 cm confluent left perihilar/mediastinal mass as well as an expansile and destructive lesion in the left glenoid scapula -11/24/20 MRI brain was negative for metastatic lesions. Redemonstration of the pituitary adenoma 1.5 x 1.5 right infrasellar. Comparable in size compared to 12/15/17 study accepting for lack of contrast -11/26/20 Bronchoscopy ([facility]) for tissue diagnosis No PFTs on file Interval History Nasrin and her are [place] natives. Live here in [facility] full- time. She has a dominant complaint of left shoulder pain today. Constant aching. Limits her ability to use the left arm. 7-01/05. Narcotics have been somewhat h elpful but pain is currently untenable. She also has recent increased CORADO can go ~ 50 ft without resting in recent weeks. No hemoptysis. Minimal increase in cough. Reports weight loss recently unknown amount. No fevers or night sweats. Past Medical History: Pituitary adenoma Left eye blindness GERD Right lung cancer COPD CAD HLP Hypothyroidism Past Surgical History: As above Family History: Mother breast cancer and ovarian cancer Maternal grandmother ovarian cancer Sister ovarian cancer Suggestive of BRCA Social History: Former smoker 50 pack year Does not drink Allergies / Meds Allergies: Coded Allergies: Sulfa (Sulfonamide Antibiotics) (Unverified Allergy, Unknown, 11/24/20) codeine (Verified Adverse Reaction, Mild, N/V, 02/27/19) morphine (Verified Adverse Reaction, Mild, N/V, 02/27/19) oxycodone (Verified Adverse Reaction, Mild, N/V, 02/27/19) Home Meds Reported Medications Omeprazole (Omeprazole) 20 Mg Capsule.dr, 20 MG PO DAILY, CAP 11/24/20 Irbesartan (Irbesartan) 150 Mg Tablet, 150 MG PO DAILY, TAB 11/24/20 Albuterol Sulfate (Ventolin Hfa) 18 Gm Hfa.aer.ad, 2 PUFFS INH Q4H PRN for SOB/WHEEZING 09/20/19 Levothyroxine Sodium (LEVOTHYROXINE SODIUM) 75 Mcg Tablet, 75 MCG PO DAILY 09/20/19 Amlodipine Besylate (Amlodipine Besylate) 5 Mg Tablet, 5 MG PO DAILY 02/27/19 Atorvastatin Calcium (Atorvastatin Calcium) 80 Mg Tablet, 80 MG PO DAILY 02/27/19 Gabapentin (Gabapentin) 300 Mg Cap, 300 MG PO TID 12/15/17 Aspirin (Ecotrin) 81 Mg Tab, 81 MG PO DAILY, TAB 10/18/17 Prednisone (Prednisone) 5 Mg Tab, 5 MG PO DAILY 10/12/17 Discontinued Reported Medications Verapamil HCl (Verapamil HCl) 40 Mg Tab, 40 MG PO Q8HP 04/09/18 Discontinued Scripts Prednisone (Prednisone) 20 Mg Tablet, 40 MG PO DAILY for 4 Days, #8 TAB Prov:ANDREWS FOUNTAIN MD 09/21/20 Vital Signs Vital Signs Date Time Temp Pulse Resp B/P (MAP) Pulse Ox O2 Delivery O2 Flow Rate FiO2 11/27/20 06:00 97.9 81 20 120/76 (91) 95 Nasal Cannula 1.0 General Exam: Positive: Alert, Cooperative, No Acute Distress Eye Exam: Positive: PERRLA, EOMI ENT EXAM: Positive: Atraumatic, Pharynx Normal Neck Exam: Positive: Supple; Negative: Lymphadenopathy Chest Exam: Positive: Clear to auscultation, Diminished Heart Exam: Positive: Rate Normal, Regular Rhythm Abdomen Exam: Positive: Soft Extremity Exam: Negative: Edema Skin Exam: Positive: Nl turgor and temperature Neuro Exam: Positive: Normal Gait, Normal Speech, Cranial Nerves 3-12 NL (Excluding known left CN II) Psych Exam: Positive: Mental status NL Diagnostic and Laboratory Diagnostic Review Radiologic images, relevant labs and pathology reports were personally reviewed and discussed with Ms. Coburn. Laboratory Tests 11/26/20 09:26 11/27/20 06:11 Laboratory Tests 11/26/20 09:26: White Blood Count 21.6H, Red Blood Count 4.40, Hemoglobin 13.6, Hematocrit 42.6, Mean Corpuscular Volume 96.8H, Mean Corpuscular Hemoglobin 30.9, Mean Corpuscular Hemoglobin Concent 31.9L, Red Cell Distribution Width 14.4, Platelet Count 461H, Nucleated Red Blood Cells % (auto) 0.0, Sodium Level 142, Potassium Level 4.2, Chloride Level 107, Carbon Dioxide Level 26, Anion Gap 9, Blood Urea Nitrogen 35H, Creatinine 1.34H, Glomerular Filtration Rate 42.1L, Fasting Glucose 89, [place] Level 9.7 11/27/20 06:11: White Blood Count 17.3H, Red Blood Count 4.08, Hemoglobin 13.0, Hematocrit 39.5, Mean Corpuscular Volume 96.8H, Mean Corpuscular Hemoglobin 31.9, Mean Corpuscular Hemoglobin Concent 32.9, Red Cell Distribution Width 14.4, Platelet Count 401, Nucleated Red Blood Cells % (auto) 0.0, Sodium Level 143, Potassium Level 4.4, Chloride Level 108H, Carbon Dioxide Level 27, Anion Gap 8, Blood Urea Nitrogen 23H, Creatinine 0.89, Glomerular Filtration Rate > 60.0, Fasting Glucose 114H, Calcium Level 9.2 Assessment and Plan Impression Ms. Coburn is a 65 year old female with a history of tobacco use, prior right lung cancer s/p wedge resection 2012, and pituitary adenoma, who presented to the ED with intractable left shoulder pain and worsening SOB. She was found to have a large left sided mediastinal/lung mass and a large destructive metastasis in the left scapula which is the source of her pain. She is seen following bronchoscopy to establish a tissue diagnosis for consideration of palliative RT to the painful left shoulder metastasis. Stage NSCLC versus SCLC stage IV, pending histology Performance Status ECOG 2 Plan We had an extensive discussion with Ms. Coburn regarding the diagnosis at hand and available therapeutic options. I discussed the imaging findings with the patient and her showing a destructive metastatic lesion in the left shoulder as well as a large left p erihilar/mediastinal mass concerning for SCC versus SCLC. Histology is pending. I discussed in general terms that the treatment of metastatic lung cancer is systemic therapy +/- focal RT for symptoms. I explained that I will recommend a CT abdomen and pelvis to complete staging. I recommend she had close medical oncology follow up on discharge, if not an inpatient consultation to establish care. I explained that she would benefit from palliative RT to the left shoulder in the immediate term. We performed simulation on 11/26/20 and she will start RT on 11/27/20. Treatment will be 20 Gy in 5 fractions. She will receive 1 fraction before the November 29 and will resume RT on 12/01/20. This can be continued inpatient or outpatient if she is discharged home. I will withhold RT to the left chest at this time, but I told them that she would likely benefit from RT to this site for augmented local control. I will ensure we address this site appropriately once the plan for systemic therapy is established. With respect to the pituitary adenoma, her denied that she has received RT to this site but rather surgery which resulted in complications including blindness in the left eye. I compared the prior 2018 MRI to the current study and the lesion which is infrasellar and on the right side is the same size. The 2018 study lacked contrast, but morphologically the mass appears the same. This can be followed with annual MRI which I can facilitate for her as if there were growth in the future RT would be her best recourse. We discussed the logistics of receiving radiation therapy in detail including the need for a 1-time planning session. After discussing the risks, benefits and alternatives to radiation therapy, Ms. Cbourn was amenable to pursuing radiotherapy informed consent for treatment was obtained. All questions were answered to the patient's satisfaction. We instructed the patient that if there were any questions,concerns or changes in clinical status in the interim to contact us. Recommendations Palliative RT to the left shoulder 20 Gy in 5 fractions starting 11/27/20, can be continued as outpatient if discharged Please obtain CT abdomen and pelvis while inpatient to complete initial staging Recommend close medical oncology follow up inpatient consult or outpatient within 1 week post discharge I can facilitate follow up for the pituitary adenoma as an outpatient Billing Statement Total time of [40] minutes was spent preparing for the visit [2], obtaining HPI [7], examining the patient [3], reviewing diagnostic tests [7], discussing management options [12], coordinating care [2], and writing this note [7]. LIZ OVERTON MD Nov 27, 2020 08:49
[2020-11-27] MEDS: amLODIPine 5 MG TAB PO SCH (08:52)
[2020-11-27] MEDS: IRBESARTAN 150MG TAB PO SCH (08:52)
[2020-11-27] MEDS: HEPARIN SOD (PORCINE) 5000UNITS/ML 1ML VIAL/SYRINGE SC SCH ×2 (08:53→20:53)
--- NOTE | 2020-11-27 09:36 | IPN ---
PULMONARY PROGRESS NOTE DATE: 11/27/2020 SUBJECTIVE: I attended Nasrin Coburn here in the medical surgical pavilion. The patient has been examined and chart reviewed. OBJECTIVE: VITAL SIGNS: T-max overnight 98.4, blood pressure 106 to the 140s systolic. Heart rate generally in the 70s and 80s with a sinus mechanism. Respiratory rate generally in the 20s without accessory muscle use. INTAKE AND OUTPUT: [id number] not accurately recorded. GENERAL APPEARANCE: She is awake, alert, appropriate, and quite comfortable. She is able to eat, but still has some persistent dysphagia. HEENT: Pupils react. Sclerae clear. Trachea is in the midline. CHEST: Shows diminished, but reasonably acceptable and symmetric expansion. Coarse rhonchi scattered left greater than right. There is some faint wheezing. CARDIAC: Regular with no murmur or gallop. Peripheral pulses palpable with no edema. ABDOMEN: Soft and nontender with active bowel sounds. No convincing organomegaly or masses. EXTREMITIES: No cyanosis or clubbing. NEUROLOGIC: She is awake, alert, and appropriate. PSYCHIATRIC: Normal mood and affect. LABORATORY DATA: Most recent laboratories show a white blood cell count of 7.3, hemoglobin 13.0, platelet count 401,000. Sodium 143, K 4.4, chloride 108, CO2 of 27, BUN 23, creatinine 0.89, glucose 114. Pathology from her bronchoscopy yesterday pending. She did get stimulated for the beginning of radiation therapy. She said her pain is a little better today. IMPRESSION: 1. Advanced lung cancer, recurrent; awaiting final pathology. 2. Underlying obstructive lung disease. 3. Longstanding tobacco history. RECOMMENDATIONS: At this point, I am in agreement with her current medication regimen. Her pain control is reasonable. She remains on ulcer and deep vein thrombosis (DVT) prophylaxis. She remains on her inhaled respiratory regimen. She is on Rocephin and doxycycline for what is felt to be probably postobstructive changes. This is not unreasonable at all at this point. She also remains on some prednisone, which I believe is one of the things influencing her white blood cell count. I had a long discussion with her this morning regarding her dysphagia. Certainly I have no doubt that her tumor mass is the reason for this. My hopes is that when we are able to begin targeted therapy that she will get some improvement with that. Certainly it may be something amenable to stenting down the road, but given the length of her issues from an anatomic standpoint that may be difficult; but we will see how that goes. At this point, we will continue as outlined above. We will await her final pathology so we can tailor a regimen for her. Questions were answered. For further recommendations, please refer to the hospital record as information will be added as it becomes available.
[2020-11-27] MEDS: KETOROLAC 30 MG/ML 1ML VIAL IV PRN ×2 (09:54→16:19)
[2020-11-27] MEDS: DOXYCYCLINE HYCLATE 100 MG in D5W MINI-BAG PLUS 100 ML IV SCH ×2 (11:17→22:58)
[2020-11-27] MEDS ORDERED: FENTANYL REMOVAL DOCUMENTATION MISC XX SCH (11:30)
[2020-11-27] MEDS ORDERED: fentaNYL 12 MCG/HR PATCH TOP SCH (11:30)
--- NOTE | 2020-11-27 11:31 | IPNPDOC ---
Text Note Date of Service The patient was seen on 11/27/20. NOTE Subjective: -had bronch and biospy yesterday by Dr. Pettit with post procedure N/V that improved with IV antiemetics -Was seen by rad-onc and beginning radiation tx today -Was seen by palliative care, left suggestions for pain management and will resume talks with Ms. Coburn and her family in the future as she was quite nauseous at the time of their consultation -Otherwise no acute events overnight Objective: General Exam: NAD Eyes: EOMI, anicteric ENT: Atraumatic, MMM Neck: Supple, no JVD Chest: Diminished, has some rhonchi, no sendy crackles, on 1L NC Heart: RRR, no noted murmurs Abdomen: Normal bowel sounds throughout, soft, NTND Extremities: Has significant clubbing of nails, WWP, no LE edema, L arm in sling Skin: Nl turgor and temperature Neuro: Strength at 5/5 X4 ext, CN 3-12 intact, grossly nonfocal examination Psych: AOx3 Laboratory Data: WBC 17.3 Hgb 13 platelets 401 na 143 K 4.4 Cr .089 Imaging: CT ANGIO CHEST 09/21/2020 5:26 PM FINDINGS: Pulmonary arteries: There is opacification of the pulmonary arteries with no evidence of pulmonary embolus. There is severe narrowing of the left pulmonary artery with encasement by soft tissue neoplasm. There is subcarinal lymphadenopathy which has increased. There is some soft tissue density at the right suprahilar region with calcification and unchanged. There continues to be ventilation of both lungs. Aorta: There is opacification of the aorta which appears intact. Pleural spaces: There is prominent extension of the left apical portion of the mass to the superior and anterior pleura and chest wall. Pleural thickening and interstitial prominence is noted on the left. Heart: The heart is normal in size. Bones/joints: There is severe destructive change of bone involving the left proximal scapula. There is destruction of the coracoid process and anterior aspect of the glenoid. A large soft tissue mass extends into the muscles of the rotator cuff. There is also a new 2.2 cm supraclavicular lymph node. Left very large mass lesion: At the level of the left AP window the mass measures 12 cm in AP dimension and increasing by 5 cm. The transverse dimension is 6.5 cm and increasing by approximately 3 cm. This is consistent with an a norm is malignant mass with lymphadenopathy. Bony Mets to the left scapula. IMPRESSION: 1. In the last 2 months there is been interval development of a very large destructive lesion of the left scapula involving the coracoid and glenoid with a large soft tissue component. 2. The large hilar and suprahilar mass lesion now measuring 12 cm x 6.5 cm and encasing the left pulmonary artery with near occlusion of the left superior pulmonary artery. This has increased by approximately 5 cm. This is consistent with a malignant mass lesion with lymphadenopathy. 3. No evidence of pulmonary embolus. Brain MRI: Brain: There is encephalomalacia in the right parietal lobe. There is no mass or abnormal enhancement in this area. There is moderate high signal abnormality in the periventricular white matter and centrum semiovale, best seen on the flair images. These changes are nonspecific but likely represent chronic small vessel ischemic change. Cerebral ventricles: Normal. No ventriculomegaly. Pituitary gland and sella: There is a 1.5 x 1.5 x 1.2 cm mass within the right sella, possibly extending into the right cavernous sinus. The pituitary stalk is displaced toward the left. A normal pituitary is not identified. Patient has a history of pituitary adenoma. Bones/joints: Unremarkable. Paranasal sinuses: Normal as visualized. No acute sinusitis. Mastoid air cells: Normal as visualized. No mastoid effusion. Orbital cavity: Unremarkable. Soft tissues: Unremarkable. IMPRESSION: 1. There is a 1.5 x 1.5 x 1.2 cm mass within the right sella, possibly extending into the right cavernous sinus. The pituitary stalk is displaced toward the left. A normal pituitary is not identified. Patient has a history of pituitary adenoma. Direct comparison to prior studies is recommended. Findings are consistent with residual/recurrent tumor. 2. There is encephalomalacia in the right parietal lobe. There is no mass or abnormal enhancement in this area. 3. There is moderate high signal abnormality in the periventricular white matter and centrum semiovale, best seen on the flair images. These changes are nonspecific but likely represent chronic small vessel ischemic change. CXR: Diffuse chronic interstitial changes are appreciated. There is a large left perihilar/suprahilar masslike consolidation which appears significantly increased from prior examination. No effusion. No pneumothorax. Further evaluation of the mediastinum and cardiac silhouette is limited due to overlying opacities. Skeletal structures intact. IMPRESSION: Suspicious area of mass/consolidation in the left perihilar/suprahilar region. Assessment: 65 years old W with past medical history of pituitary tumor s/p resection and radiation, right lung carcinoma status post VATS in 2012, adrenal insufficiency on chronic prednisone, COPD, emphysema, coronary artery disease who presented to hospital with increased shortness of breath i/s/o Dr. Lemon having found a left lung mass and recommended biopsy. Left lung mass: -Admitting physician spoke with radiology that noted the left lung tumor mass with metastases to the scapula on CTA, no pulmonary emboli. -s/p transbronchial biopsy by Dr. Pettit 11/26, f/u pending pathology -consulted Dr. Martínez for scapula met with significant pain, beginning radiation today 11/27 for a total 5 fractions of treatment. Of note, may be completed in the outpatient setting if clinically ready for discharge, will just need follow up. -MRI of brain per onc, showing residual/recurrent tumor with a history of pituitary adenoma, unfortunately without prior to compare at this time. No other noted disease. -will need onc follow up on discharge -Consulted palliative care, appreciate pain management recs given history of opioid therapy intolerance. Will start with fentanyl patch at 12 mcg and monitor for N/V Leukocytosis with what appears to be acute SOB and cough, so potentially with a postobstructive PNA -continue ceftriaxone/doxy, day 3 -procalcitonin mildly elevated -sputum Cx pending COPD with acute exacerbation i/s/o potential PNA Status: Acute -Continue advair BID, duonebs q6h -Incentive spirometry -Ceftriaxone IV, doxycycline IV for potential PNA -Prednisone 40 mg p.o. 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
[2020-11-27 14:00] VITALS: BP 99/60
[2020-11-27 15:49] VITALS: BP 130/76
[2020-11-27 18:40] VITALS: BP 121/89
[2020-11-27] MEDS: cefTRIAXone SOD 1 GM in D5W MINI-BAG PLUS 50 ML IV SCH (20:53)
[2020-11-27 22:00] VITALS: BP_SYST 113; BP_SYST 118; BP_DIAS 56; BP_DIAS 71
[2020-11-28] MEDS: IPRATROPIUM 0.5MG/ALBUTEROL 2.5MG INH SOL UD 3ML (DUONEB) NEB SCH ×4 (02:18→20:40)
[2020-11-28 06:00] VITALS: BP 120/66
[2020-11-28] MEDS: LEVOTHYROXINE 75MCG TABLET (0.075MG) PO SCH (06:09)
[2020-11-28 06:39] LABS: HEMOGLOBIN 12.4 g/dl (12.0-15.5); MEAN CORPUSCULAR HGB CONC 31.8 g/dl (32.0-36.5); MEAN CORPUSCULAR VOLUME 97.5 fl (80.0-96.0); PLATELET COUNT, AUTOMATED 391 10^3/uL (150-450); WHITE BLOOD COUNT 17.5 10^3/uL (4.0-10.0)
[2020-11-28 07:07] LABS: BLOOD UREA NITROGEN 33 MG/DL (7-18); CARBON DIOXIDE LEVEL 26 MEQ/L (21-32); CHLORIDE LEVEL 112 MEQ/L (98-107); CREATININE FOR GFR 0.88 MG/DL (0.55-1.30); GLOMERULAR FILTRATION RATE > 60.0 (>45); GLUCOSE, FASTING 81 MG/DL (70-100); SODIUM LEVEL 144 MEQ/L (136-145)
[2020-11-28] MEDS: ADVAIR HFA 230/21MCG INHALER INH SCH ×2 (07:27→20:40)
[2020-11-28] MEDS: ACETAMINOPHEN TAB 650MG DOSE (2X325MG) PO PRN ×2 (08:48→15:46)
[2020-11-28] MEDS: IRBESARTAN 150MG TAB PO SCH (08:49)
[2020-11-28] MEDS: OMEPRAZOLE 20 MG CAP PO SCH (08:49)
[2020-11-28] MEDS: LevoFLOXacin 750 MG TABLET PO SCH (08:49)
[2020-11-28] MEDS: ASPIRIN 81MG ENTERIC TABLET PO SCH (08:49)
[2020-11-28] MEDS: amLODIPine 5 MG TAB PO SCH (08:50)
[2020-11-28] MEDS: ATORVASTATIN 20 MG TAB PO SCH (08:50)
[2020-11-28] MEDS: GABAPENTIN 300 MG CAP PO SCH ×3 (08:50→20:46)
[2020-11-28] MEDS: predniSONE 20 MG TAB PO SCH (08:50)
[2020-11-28] MEDS: HEPARIN SOD (PORCINE) 5000UNITS/ML 1ML VIAL/SYRINGE SC SCH ×2 (08:51→20:46)
[2020-11-28 10:03] VITALS: O2SAT 93
--- NOTE | 2020-11-28 11:38 | IPN ---
PULMONARY PROGRESS NOTE DATE: 11/28/2020 SUBJECTIVE: I again attended Nasrin Coburn here in the [facility]. The patient has been examined and chart reviewed. She did have one radiation treatment to her shoulder yesterday. OBJECTIVE: VITAL SIGNS: T-max overnight 98.1, blood pressure in the 120s systolic, heart rate generally in the 70s and 80s with a sinus mechanism, and respiratory rate generally in the upper teens without accessory muscle use. Currently pulse ox 88% to 92% during conversation. INTAKE AND OUTPUT: [id number] not accurately recorded. GENERAL: She is awake, alert, and appropriate. She is more comfortable today. HEENT: Pupils react. Sclerae clear. Trachea is in the midline. CHEST: Does show significant inspiratory crackles at the left upper lobe, especially anteriorly. There are some rhonchi, left greater than right. No rubs. No other focal adventitious breath sounds are identified. CARDIAC: Generally regular. Peripheral edema pulses palpable and no edema. ABDOMEN: Soft and nontender with normoactive bowel sounds. No convincing organomegaly or masses. EXTREMITIES: No cyanosis or clubbing. NEUROLOGIC: She is awake, alert, and appropriate. PSYCHIATRIC: Shows normal mood and affect. LABORATORY DATA: Most recent laboratories show a white blood cell count of 17.5, hemoglobin 12.4, platelet count 391,000. Sodium 144, K of 4.0, chloride 112, CO2 of 26, BUN 33, creatinine 0.88. IMAGING DATA: No new imaging today. IMPRESSION: 1. Underlying obstructive lung disease. 2. Previous tobacco history. 3. Advanced lung cancer with pathology pending. RECOMMENDATIONS: At this point, we will continue her current regimen. We will add some expectorants. She does have some thick sputum. Sputum did grow pseudomonas and she has been changed to Levaquin. We will see how that goes. Certainly, she may need double coverage if she does not improve clinically. We will continue her current respiratory treatments. She is on ulcer and deep vein thrombosis (DVT) prophylaxis. We are awaiting final pathology so that an adequate and tailored regimen for treatment of her cancer can be devised and I did discuss that at length with her. At this point, we will continue as outlined above. Further recommendations will be made in the progress record as new information becomes available.
[2020-11-28] MEDS: guaiFENesin ER 600 MG TAB PO SCH ×2 (11:48→20:46)
[2020-11-28] MEDS: traMADol 50 MG TAB PO PRN ×2 (11:49→20:49)
[2020-11-28 14:00] VITALS: BP 125/82
--- NOTE | 2020-11-28 15:40 | IPNPDOC ---
Date Seen The patient was seen on 11/28/20. Progress Note SUBJECTIVE: Patient was seen and examined at bedside. Overnight had intermittent bouts of coughing productive of rest, colored sputum. Status post bronchoscopy with biopsy on 11/26/[address] Pettit. Pain is well controlled. The left shoulder. Patient denies any chest pain, palpitations, shortness of breath, nausea, vomiting or diarrhea. OBJECTIVE PHYSICAL EXAMINATION: VITAL SIGNS: please see below General: NAD, comfortable HEENT: PERRLA, EOMI, sclerae clear Neck: supple, normal ROM, no JVD Respiratory: Diminished breath sounds bilaterally. No crackles. Currently on 1 L oxygen nasal cannula. CVS: RRR, normal S1, S2, no murmurs Abdo: soft, no masses, no hepatosplenomegaly, BS+, no rebound tenderness Extremities: Clubbing pronounced on hands. No edema. MSK: no joint deformities, normal ROM Neuro: no focal neuro deficits, moving all 4 extremities, CN2-12 intact. Strength 5/5 in all 4 extremities. No nystagmus. Psych: calm, cooperative, AAO x 3 LABORATORY DATA, IMAGING STUDIES, MICROBIOLOGY: Please see below. DVT prophylaxis ordered?: Heparin ASSESSMENT AND PLAN: 65 years old W with past medical history of pituitary tumor s/p resection and radiation, right lung carcinoma status post VATS in 2012, adrenal insufficiency on chronic prednisone, COPD, emphysema, coronary artery disease who presented to hospital with increased shortness of breath. Dr. Lemon isolated a left lung mass and recommended a biopsy via bronchoscopy. Patient underwent a transbronchial biopsy by Dr. Pettit on 11/26/20. Radiation oncology, Dr. Valdes was consulted for the scapular metastases with pain. Plan for 5 fractions of treatment. PROBLEMS: Left lung mass: -Admitting physician spoke with radiology that noted the left lung tumor mass with metastases to the scapula on CTA, no pulmonary emboli. -s/p transbronchial biopsy by Dr. Pettit 11/26, f/u pending pathology -consulted Dr. Martínez for scapular metastatic leasion with significant pain; s/p radiation treatment on 11/27 (1 of 5) - per Dr. Martínez, may be completed in the outpatient setting once cleared for DC -MRI of brain per onc, showing residual/recurrent tumor with a history of pituitary adenoma - no prior imaging to compate -will need oncology follow up on discharge -Consulted palliative care, appreciate pain management recs given history of opioid therapy intolerance. - switched to fentanyl patch at 12 mcg, presently tolerating well, no nausea or vomiting reported Leukocytosis with what appears to be acute SOB and cough, so potentially with a postobstructive PNA -DC ceftriaxone/doxy (received 3 days) -sputum growing pseudomonas -Switch to PO levaquin. COPD with acute exacerbation and superimposed pneumonia -Continue advair BID, duonebs q6h - sputum growing pseudomonas - DC ceftriaxone, doxycycline (completed 4 days each) -Switch to PO levaquin. -Prednisone 40 mg p.o. daily, will require prednisone taper on DC. 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 Martínez consulted, complete 1st of 5 radiation treatments. Can continue outpatient once cleared for DC. -PRN toradol DVT ppx: heparin BID VS, I&O, 24H, Fishbone Vital Signs/I&O Vital Signs Date Time Temp Pulse Resp B/P (MAP) Pulse Ox O2 Delivery O2 Flow Rate FiO2 11/28/20 14:00 97.7 86 18 125/82 (96) 94 Nasal Cannula 1.0 I&O- Last 24 Hours up to 6 AM 11/28/20 06:00 Intake Total 2190 ml Balance 2190 ml Laboratory Data 24H LABS Laboratory Tests 2 11/28/20 06:18: Nucleated Red Blood Cells % (auto) 0.0, Anion Gap 6L, Glomerular Filtration Rate > 60.0, Calcium Level 9.0 CBC/BMP Laboratory Tests 11/28/20 06:18 Microbiology Microbiology 11/25/20 Gram Stain - Final, Complete 11/25/20 Sputum Culture - Final, Complete Pseudomonas Aeruginosa 11/24/20 Blood Culture - Preliminary, Resulted No Growth after 72 hours. All specime... 11/24/20 Respiratory Virus Panel (PCR) ([facility]) - Final, Complete 11/24/20 Blood Culture - Preliminary, Resulted No Growth after 72 hours. All specime... FABIEN CARBAJAL MD Nov 28, 2020 15:40
[2020-11-28 16:48] VITALS: O2SAT 92
[2020-11-28 22:00] VITALS: BP 115/66
[2020-11-29] MEDS: IPRATROPIUM 0.5MG/ALBUTEROL 2.5MG INH SOL UD 3ML (DUONEB) NEB SCH ×4 (02:18→20:16)
[2020-11-29] MEDS: ACETAMINOPHEN TAB 650MG DOSE (2X325MG) PO PRN (02:27)
[2020-11-29 06:00] VITALS: BP 145/79
[2020-11-29] MEDS: LEVOTHYROXINE 75MCG TABLET (0.075MG) PO SCH (06:04)
[2020-11-29 06:33] LABS: HEMATOCRIT 39.9 % (36.0-47.0); HEMOGLOBIN 12.7 g/dl (12.0-15.5); MEAN CORPUSCULAR HEMOGLOBIN 31.1 pg (27.0-33.0); MEAN CORPUSCULAR HGB CONC 31.8 g/dl (32.0-36.5); MEAN CORPUSCULAR VOLUME 97.6 fl (80.0-96.0); PLATELET COUNT, AUTOMATED 406 10^3/uL (150-450); RED BLOOD COUNT 4.09 10^6/uL (4.00-5.40); WHITE BLOOD COUNT 15.2 10^3/uL (4.0-10.0)
[2020-11-29 07:00] LABS: BLOOD UREA NITROGEN 25 MG/DL (7-18); CALCIUM LEVEL 8.9 MG/DL (8.8-10.2); CARBON DIOXIDE LEVEL 26 MEQ/L (21-32); CHLORIDE LEVEL 112 MEQ/L (98-107); CREATININE FOR GFR 0.78 MG/DL (0.55-1.30); GLOMERULAR FILTRATION RATE > 60.0 (>45); GLUCOSE, FASTING 87 MG/DL (70-100); POTASSIUM SERUM 4.5 MEQ/L (3.5-5.1); SODIUM LEVEL 146 MEQ/L (136-145)
[2020-11-29] MEDS: ADVAIR HFA 230/21MCG INHALER INH SCH ×2 (07:16→20:16)
[2020-11-29] MEDS: HEPARIN SOD (PORCINE) 5000UNITS/ML 1ML VIAL/SYRINGE SC SCH ×2 (08:32→20:50)
[2020-11-29] MEDS: OMEPRAZOLE 20 MG CAP PO SCH (08:32)
[2020-11-29] MEDS: predniSONE 20 MG TAB PO SCH (08:32)
[2020-11-29] MEDS: guaiFENesin ER 600 MG TAB PO SCH ×2 (08:32→20:50)
[2020-11-29] MEDS: IRBESARTAN 150MG TAB PO SCH (08:32)
[2020-11-29] MEDS: GABAPENTIN 300 MG CAP PO SCH ×3 (08:32→20:50)
[2020-11-29] MEDS: ATORVASTATIN 20 MG TAB PO SCH (08:32)
[2020-11-29] MEDS: ASPIRIN 81MG ENTERIC TABLET PO SCH (08:32)
[2020-11-29] MEDS: amLODIPine 5 MG TAB PO SCH (08:33)
[2020-11-29] MEDS: traMADol 50 MG TAB PO PRN ×2 (08:34→18:37)
[2020-11-29 09:00] VITALS: O2SAT 91
[2020-11-29] MEDS ORDERED: ONDANSETRON 4 MG TAB PO SCH (12:00)
--- NOTE | 2020-11-29 13:39 | IPNPDOC ---
Date Seen The patient was seen on 11/29/20. Progress Note SUBJECTIVE: Patient was seen and examined at bedside. Overnight had intermittent bouts of coughing productive of rest, colored sputum. Status post bronchoscopy with biopsy on 11/26/[address] Pettit. Pain is well controlled. The left shoulder. Patient denies any chest pain, palpitations, shortness of breath, nausea, vomiting or diarrhea. OBJECTIVE PHYSICAL EXAMINATION: VITAL SIGNS: please see below General: NAD, comfortable HEENT: PERRLA, EOMI, sclerae clear Neck: supple, normal ROM, no JVD Respiratory: Diminished breath sounds bilaterally. No crackles. Currently on 1 L oxygen nasal cannula. CVS: RRR, normal S1, S2, no murmurs Abdo: soft, no masses, no hepatosplenomegaly, BS+, no rebound tenderness Extremities: Clubbing pronounced on hands. No edema. MSK: no joint deformities, normal ROM Neuro: no focal neuro deficits, moving all 4 extremities, CN2-12 intact. Strength 5/5 in all 4 extremities. No nystagmus. Psych: calm, cooperative, AAO x 3 LABORATORY DATA, IMAGING STUDIES, MICROBIOLOGY: Please see below. DVT prophylaxis ordered?: Heparin ASSESSMENT AND PLAN: 65 years old W with past medical history of pituitary tumor s/p resection and radiation, right lung carcinoma status post VATS in 2012, adrenal insufficiency on chronic prednisone, COPD, emphysema, coronary artery disease who presented to hospital with increased shortness of breath. Dr. Lemon isolated a left lung mass and recommended a biopsy via bronchoscopy. Patient underwent a transbronchial biopsy by Dr. Pettit on 11/26/20. Radiation oncology, Dr. Valdes was consulted for the scapular metastases with pain. Plan for 5 fractions of treatment. PROBLEMS: Left lung mass: -Admitting physician spoke with radiology that noted the left lung tumor mass with metastases to the scapula on CTA, no pulmonary emboli. -s/p transbronchial biopsy by Dr. Pettit 11/26, f/u pending pathology -consulted Dr. Martínez for scapular metastatic lesion with significant pain; s/p radiation treatment on 11/27 (1 of 5) - per Dr. Martínez, may be completed in the outpatient setting once cleared for DC -MRI of brain per onc, showing residual/recurrent tumor with a history of pituitary adenoma - no prior imaging to compare - will need oncology follow up on discharge -Consulted palliative care, appreciate pain management recs given history of opioid therapy intolerance. - fentanyl patch was recommended by Palliative services, but was not started, I suspect because of its possible nausea/vomiting side effects - based on palliative service recs, I will trial methadone 2.5 mg PO TID prn for pain control, along with tramadol 50 mg q8h prn - we will monitor qtc closely. Leukocytosis with what appears to be acute SOB and cough, so potentially with a postobstructive PNA -DC ceftriaxone/doxy (received 3 days) -sputum growing pseudomonas -Switch to PO levaquin. - leukocytosis seems to be improving, although it is difficult to be certain against a background of steroid use. COPD with acute exacerbation and superimposed pneumonia - Continue advair BID, duonebs q6h - sputum growing pseudomonas - DC ceftriaxone, doxycycline (completed 4 days each) - Switched to PO levaquin (day 2) - Prednisone 40 mg p.o. daily, will require prednisone taper on DC. 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 Martínez consulted, complete 1st of 5 radiation treatments. Can continue outpatient once cleared for DC. - patient has been refusing insertion of an IV - will tria used of methadone 2.5 mg PO TID prn as well as tramadol 50 mg q8h prn - we will monitor QTc closely. Switch zofran to reglan. DVT ppx: heparin BID Dispo: After lengthy discussion with the patient's , Marc Coburn today. He is concerned about providing adequate care for her and believes he is incapable of providing oxygen as well as pain services at home. I explained to Mr. Coburn that, but at the current pain regimen does adequate. The patient is able to tolerate by mouth she will be cleared for discharge home and completed her radiation therapy as an outpatient. We may need involvement of case manage ment, once the holiday weekend is over. VS, I&O, 24H, Fishbone Vital Signs/I&O Vital Signs Date Time Temp Pulse Resp B/P (MAP) Pulse Ox O2 Delivery O2 Flow Rate FiO2 11/29/20 09:04 18 Room Air 11/29/20 08:34 93 11/29/20 08:33 81 124/82 11/29/20 06:00 98.1 11/28/20 20:45 1.0 I&O- Last 24 Hours up to 6 AM 11/29/20 06:00 Intake Total 1600 ml Balance 1600 ml Laboratory Data 24H LABS Laboratory Tests 2 11/28/20 15:53: Methicillin-Resist S.aureus DNA PCR NOT DETECTED 11/29/20 06:11: Nucleated Red Blood Cells % (auto) 0.0, Anion Gap 8, Glomerular Filtration Rate > 60.0, Calcium Level 8.9 CBC/BMP Laboratory Tests 11/29/20 06:11 Microbiology Microbiology 11/25/20 Gram Stain - Final, Complete 11/25/20 Sputum Culture - Final, Complete Pseudomonas Aeruginosa 11/24/20 Blood Culture - Preliminary, Resulted No Growth after 72 hours. All specime... 11/24/20 Respiratory Virus Panel (PCR) ([facility]) - Final, Complete 11/24/20 Blood Culture - Preliminary, Resulted No Growth after 72 hours. All specime... FABIEN CARBAJAL MD Nov 29, 2020 13:39
[2020-11-29 14:00] VITALS: BP 126/79
[2020-11-29] MEDS: METHADONE 5 MG TAB (S0109) PO SCH ×2 (16:29→20:51)
[2020-11-29] MEDS: METOCLOPRAMIDE 5 MG TAB PO SCH (18:37)
[2020-11-29 22:00] VITALS: BP 124/74
[2020-11-30] MEDS: METOCLOPRAMIDE 5 MG TAB PO SCH ×2 (00:17→06:21)
[2020-11-30] MEDS: IPRATROPIUM 0.5MG/ALBUTEROL 2.5MG INH SOL UD 3ML (DUONEB) NEB SCH ×4 (01:40→20:06)
[2020-11-30 06:00] VITALS: BP 124/69
[2020-11-30] MEDS: LevoFLOXacin 750 MG TABLET PO SCH (06:21)
[2020-11-30] MEDS: LEVOTHYROXINE 75MCG TABLET (0.075MG) PO SCH (06:21)
[2020-11-30 06:33] LABS: HEMOGLOBIN 11.9 g/dl (12.0-15.5); MEAN CORPUSCULAR HEMOGLOBIN 31.2 pg (27.0-33.0); MEAN CORPUSCULAR HGB CONC 32.2 g/dl (32.0-36.5); MEAN CORPUSCULAR VOLUME 97.1 fl (80.0-96.0); PLATELET COUNT, AUTOMATED 377 10^3/uL (150-450); RED BLOOD COUNT 3.81 10^6/uL (4.00-5.40); WHITE BLOOD COUNT 14.7 10^3/uL (4.0-10.0)
[2020-11-30 07:00] LABS: BLOOD UREA NITROGEN 22 MG/DL (7-18); CALCIUM LEVEL 8.8 MG/DL (8.8-10.2); CARBON DIOXIDE LEVEL 27 MEQ/L (21-32); CHLORIDE LEVEL 108 MEQ/L (98-107); CREATININE FOR GFR 0.82 MG/DL (0.55-1.30); GLOMERULAR FILTRATION RATE > 60.0 (>45); GLUCOSE, FASTING 72 MG/DL (70-100); POTASSIUM SERUM 4.5 MEQ/L (3.5-5.1); SODIUM LEVEL 142 MEQ/L (136-145)
[2020-11-30] MEDS: ADVAIR HFA 230/21MCG INHALER INH SCH ×2 (07:36→20:00)
[2020-11-30] MEDS ORDERED: ONDANSETRON 4 MG ORAL DISINTEGRATING TAB PO PRN (08:20)
[2020-11-30] MEDS ORDERED: METHADONE 5 MG TAB (S0109) PO SCH (08:20)
[2020-11-30] MEDS ORDERED: METHADONE 5 MG TAB (S0109) PO PRN (08:25)
[2020-11-30] MEDS: predniSONE 20 MG TAB PO SCH (09:00)
[2020-11-30] MEDS: IRBESARTAN 150MG TAB PO SCH (09:00)
[2020-11-30] MEDS: amLODIPine 5 MG TAB PO SCH (09:00)
[2020-11-30] MEDS: guaiFENesin ER 600 MG TAB PO SCH ×2 (09:00→20:56)
[2020-11-30] MEDS: GABAPENTIN 300 MG CAP PO SCH ×3 (09:00→20:56)
[2020-11-30] MEDS: HEPARIN SOD (PORCINE) 5000UNITS/ML 1ML VIAL/SYRINGE SC SCH ×2 (09:00→20:57)
[2020-11-30] MEDS: OMEPRAZOLE 20 MG CAP PO SCH (09:00)
[2020-11-30] MEDS: ATORVASTATIN 20 MG TAB PO SCH (09:00)
[2020-11-30] MEDS: ASPIRIN 81MG ENTERIC TABLET PO SCH (09:00)
--- NOTE | 2020-11-30 09:01 | REP ---
INDICATION: vomiting, assess for bowel distension/obstruction COMPARISON: None. TECHNIQUE: Supine view of the abdomen and pelvis. FINDINGS: Bowel gas pattern is nonspecific and without obstruction or perforation. Mild fecal stasis cannot be excluded. No organomegaly. No abnormal calcifications. Skeletal structures intact. IMPRESSION: Mild fecal stasis suggested. No evidence for bowel obstruction. <Electronically signed by Dawson Olmstead > 11/30/20 [id number]
[2020-11-30] MEDS: ONDANSETRON 4MG/2ML VIAL IV PRN ×2 (13:59→20:18)
[2020-11-30 14:00] VITALS: BP 138/95
--- NOTE | 2020-11-30 17:01 | IPNPDOC ---
Date Seen The patient was seen on 11/30/20. Progress Note SUBJECTIVE: Patient was seen and examined at bedside. Overnight had intermittent bouts of coughing productive of rest, colored sputum. Status post bronchoscopy with biopsy on 11/26/[address] Pettit. Pain is well controlled. The left shoulder. Patient denies any chest pain, palpitations, shortness of breath, nausea, vomiting or diarrhea. OBJECTIVE PHYSICAL EXAMINATION: VITAL SIGNS: please see below General: NAD, comfortable HEENT: PERRLA, EOMI, sclerae clear Neck: supple, normal ROM, no JVD Respiratory: Diminished breath sounds bilaterally. No crackles. Currently on 1 L oxygen nasal cannula. CVS: RRR, normal S1, S2, no murmurs Abdo: soft, no masses, no hepatosplenomegaly, BS+, no rebound tenderness Extremities: Clubbing pronounced on hands. No edema. MSK: no joint deformities, normal ROM Neuro: no focal neuro deficits, moving all 4 extremities, CN2-12 intact. Strength 5/5 in all 4 extremities. No nystagmus. Psych: calm, cooperative, AAO x 3 LABORATORY DATA, IMAGING STUDIES, MICROBIOLOGY: Please see below. DVT prophylaxis ordered?: Heparin ASSESSMENT AND PLAN: 65 years old W with past medical history of pituitary tumor s/p resection and radiation, right lung carcinoma status post VATS in 2012, adrenal insufficiency on chronic prednisone, COPD, emphysema, coronary artery disease who presented to hospital with increased shortness of breath. Dr. Lemon isolated a left lung mass and recommended a biopsy via bronchoscopy. Patient underwent a transbronchial biopsy by Dr. Pettit on 11/26/20. Radiation oncology, Dr. Valdes was consulted for the scapular metastases with pain. Plan for 5 fractions of treatment. PROBLEMS: Left lung mass: -Admitting physician spoke with radiology that noted the left lung tumor mass with metastases to the scapula on CTA, no pulmonary emboli. -s/p transbronchial biopsy by Dr. Pettit 11/26, f/u pending pathology -consulted Dr. Martínez for scapular metastatic lesion with significant pain; s/p radiation treatment on 11/27 (1 of 5) - per Dr. Martínez, may be completed in the outpatient setting once cleared for DC -MRI of brain per onc, showing residual/recurrent tumor with a history of pituitary adenoma - no prior imaging to compare - will need oncology follow up on discharge -Consulted palliative care, appreciate pain management recs given history of opioid therapy intolerance. - fentanyl patch was recommended by Palliative services, but was not started, I suspect because of its possible nausea/vomiting side effects - based on palliative service recs, I will trial methadone 2.5 mg PO TID prn for pain control, along with tramadol 50 mg q8h prn - we will monitor qtc closely. - stopped methadone as may be contributing to vomiting - obtained IV access. Zofran IV Leukocytosis with what appears to be acute SOB and cough, so potentially with a postobstructive PNA -DC ceftriaxone/doxy (received 3 days) -sputum growing pseudomonas -Switch to PO levaquin. - leukocytosis seems to be improving, although it is difficult to be certain against a background of steroid use. COPD with acute exacerbation and superimposed pneumonia - Continue advair BID, duonebs q6h - sputum growing pseudomonas - DC ceftriaxone, doxycycline (completed 4 days each) - Switched to PO levaquin (day 2) - Prednisone 40 mg p.o. daily, will require prednisone taper on DC. 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 Martínez consulted, complete 1st of 5 radiation treatments. Can continue outpatient once cleared for DC. - patient has been refusing insertion of an IV - will tria used of methadone 2.5 mg PO TID prn as well as tramadol 50 mg q8h prn - we will monitor QTc closely. - we were able to obtain IV access - ordered IV zofran - discontinued methadone as possibly contributing to nausea and vomiting - will trial ibuprofen and prednisone for pain control due to bony met DVT ppx: heparin BID Dispo: After lengthy discussion with the patient's , Marc Coburn today. He is concerned about providing adequate care for her and believes he is incapable of providing oxygen as well as pain services at home. I explained to Mr. Coburn that, but at the current pain regimen does adequate. The patient is able to tolerate by mouth she will be cleared for discharge home and completed her radiation therapy as an outpatient. We may need involvement of case management, once the holiday weekend is over. VS, I&O, 24H, Fishbone Vital Signs/I&O Vital Signs Date Time Temp Pulse Resp B/P (MAP) Pulse Ox O2 Delivery O2 Flow Rate FiO2 11/30/20 14:00 97.9 88 17 138/95 (109) 91 Nasal Cannula 1.0 I&O- Last 24 Hours up to 6 AM 11/30/20 06:00 Intake Total 1760 ml Balance 1760 ml Laboratory Data 24H LABS Laboratory Tests 2 11/30/20 06:08: Nucleated Red Blood Cells % (auto) 0.0, Anion Gap 7L, Glomerular Filtration Rate > 60.0, Calcium Level 8.8 CBC/BMP Laboratory Tests 11/30/20 06:08 Microbiology Microbiology 11/25/20 Gram Stain - Final, Complete 11/25/20 Sputum Culture - Final, Complete Pseudomonas Aeruginosa 11/24/20 Blood Culture - Final, Complete NO GROWTH AFTER 5 DAYS 11/24/20 Respiratory Virus Panel (PCR) (KRYSTAL) - Final, Complete 11/24/20 Blood Culture - Final, Complete NO GROWTH AFTER 5 DAYS FABIEN CARBAJAL MD Nov 30, 2020 17:01
[2020-11-30] MEDS: traMADol 50 MG TAB PO PRN (20:57)
[2020-11-30 22:00] VITALS: BP 134/71
[2020-12-01] MEDS: IPRATROPIUM 0.5MG/ALBUTEROL 2.5MG INH SOL UD 3ML (DUONEB) NEB SCH ×4 (02:52→19:33)
[2020-12-01 06:00] VITALS: BP 105/57
[2020-12-01] MEDS: LEVOTHYROXINE 75MCG TABLET (0.075MG) PO SCH (06:32)
[2020-12-01] MEDS: ONDANSETRON 4MG/2ML VIAL IV PRN (06:32)
[2020-12-01 06:44] LABS: HEMOGLOBIN 13.2 g/dl (12.0-15.5); MEAN CORPUSCULAR HEMOGLOBIN 31.1 pg (27.0-33.0); MEAN CORPUSCULAR HGB CONC 32.2 g/dl (32.0-36.5); MEAN CORPUSCULAR VOLUME 96.7 fl (80.0-96.0); PLATELET COUNT, AUTOMATED 353 10^3/uL (150-450); RED BLOOD COUNT 4.24 10^6/uL (4.00-5.40); WHITE BLOOD COUNT 14.2 10^3/uL (4.0-10.0)
[2020-12-01 06:59] LABS: BLOOD UREA NITROGEN 17 MG/DL (7-18); CALCIUM LEVEL 8.8 MG/DL (8.8-10.2); CARBON DIOXIDE LEVEL 30 MEQ/L (21-32); CHLORIDE LEVEL 104 MEQ/L (98-107); CREATININE FOR GFR 0.72 MG/DL (0.55-1.30); GLOMERULAR FILTRATION RATE > 60.0 (>45); GLUCOSE, FASTING 76 MG/DL (70-100); POTASSIUM SERUM 4.3 MEQ/L (3.5-5.1); SODIUM LEVEL 141 MEQ/L (136-145)
--- NOTE | 2020-12-01 07:21 | ECGEPIP ---
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
[2020-12-01] MEDS: ADVAIR HFA 230/21MCG INHALER INH SCH ×2 (07:26→19:33)
[2020-12-01] MEDS: HEPARIN SOD (PORCINE) 5000UNITS/ML 1ML VIAL/SYRINGE SC SCH ×2 (09:14→20:01)
[2020-12-01] MEDS: IBUPROFEN 600MG TAB PO PRN ×2 (09:14→17:36)
[2020-12-01] MEDS: IRBESARTAN 150MG TAB PO SCH (09:15)
[2020-12-01] MEDS: guaiFENesin ER 600 MG TAB PO SCH ×2 (09:15→20:01)
[2020-12-01] MEDS: GABAPENTIN 300 MG CAP PO SCH ×3 (09:16→20:01)
[2020-12-01] MEDS: ASPIRIN 81MG ENTERIC TABLET PO SCH (09:16)
[2020-12-01] MEDS: amLODIPine 5 MG TAB PO SCH (09:16)
[2020-12-01] MEDS: predniSONE 20 MG TAB PO SCH (09:16)
[2020-12-01] MEDS: ATORVASTATIN 20 MG TAB PO SCH (09:16)
[2020-12-01] MEDS: OMEPRAZOLE 20 MG CAP PO SCH (09:16)
[2020-12-01] MEDS ORDERED: LORazepam 2 MG/ML VIAL IV PRN (11:35)
[2020-12-01 14:00] VITALS: BP 105/53
[2020-12-01] MEDS: LORazepam 0.5 MG TAB PO PRN (17:35)
[2020-12-01 22:00] VITALS: BP 101/62
[2020-12-01 22:09] VITALS: O2SAT 92
[2020-12-02] MEDS: IPRATROPIUM 0.5MG/ALBUTEROL 2.5MG INH SOL UD 3ML (DUONEB) NEB SCH ×4 (02:49→19:23)
[2020-12-02] MEDS: traMADol 50 MG TAB PO PRN ×2 (03:05→20:23)
[2020-12-02] MEDS: LEVOTHYROXINE 75MCG TABLET (0.075MG) PO SCH (05:30)
[2020-12-02] MEDS: LevoFLOXacin 750 MG TABLET PO SCH (05:30)
[2020-12-02] MEDS: IBUPROFEN 600MG TAB PO PRN (05:34)
[2020-12-02 06:00] VITALS: BP 113/73
[2020-12-02] MEDS: ADVAIR HFA 230/21MCG INHALER INH SCH ×2 (07:30→19:23)
--- NOTE | 2020-12-02 08:01 | ECGEPIP ---
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
[2020-12-02] MEDS: ONDANSETRON 4MG/2ML VIAL IV PRN (08:19)
[2020-12-02] MEDS: LORazepam 0.5 MG TAB PO PRN (08:19)
[2020-12-02] MEDS: IRBESARTAN 150MG TAB PO SCH ×2 (09:00→09:15)
[2020-12-02] MEDS: amLODIPine 5 MG TAB PO SCH ×3 (09:00→09:15)
[2020-12-02] MEDS: ATORVASTATIN 20 MG TAB PO SCH (09:12)
[2020-12-02] MEDS: guaiFENesin ER 600 MG TAB PO SCH ×2 (09:12→20:22)
[2020-12-02] MEDS: OMEPRAZOLE 20 MG CAP PO SCH (09:13)
[2020-12-02] MEDS: GABAPENTIN 300 MG CAP PO SCH ×3 (09:13→20:22)
[2020-12-02] MEDS: ASPIRIN 81MG ENTERIC TABLET PO SCH (09:13)
[2020-12-02] MEDS: predniSONE 20 MG TAB PO SCH (09:13)
[2020-12-02] MEDS: HEPARIN SOD (PORCINE) 5000UNITS/ML 1ML VIAL/SYRINGE SC SCH ×2 (09:16→20:23)
[2020-12-02 10:01] LABS: BASO % 0.2 % (0.0-1.0); EOS # 0.2 10^3/uL (0.0-0.5); HEMATOCRIT 40.4 % (36.0-47.0); HEMOGLOBIN 12.9 g/dl (12.0-15.5); LYMPH # 2.1 10^3/uL (1.5-5.0); LYMPH % 12.9 % (24.0-44.0); MEAN CORPUSCULAR HEMOGLOBIN 30.9 pg (27.0-33.0); MEAN CORPUSCULAR HGB CONC 31.9 g/dl (32.0-36.5); MEAN CORPUSCULAR VOLUME 96.9 fl (80.0-96.0); MONO # 0.9 10^3/uL (0.0-0.8); MONO % 5.7 % (2.0-8.0); NEUTROPHILS % 78.4 % (36.0-66.0); PLATELET COUNT, AUTOMATED 364 10^3/uL (150-450); RED BLOOD COUNT 4.17 10^6/uL (4.00-5.40); WHITE BLOOD COUNT 16.6 10^3/uL (4.0-10.0)
[2020-12-02 10:37] LABS: ALBUMIN 2.9 GM/DL (3.2-5.2); BILIRUBIN,TOTAL 0.4 MG/DL (0.2-1.0); CALCIUM LEVEL 8.9 MG/DL (8.8-10.2); CREATININE FOR GFR 1.05 MG/DL (0.55-1.30); GLOMERULAR FILTRATION RATE 55.8 (>45); MAGNESIUM LEVEL 2.2 MG/DL (1.8-2.4); TOTAL PROTEIN 5.9 GM/DL (6.4-8.2)
[2020-12-02 12:36] VITALS: O2SAT 93
[2020-12-02 14:00] VITALS: BP 104/57
[2020-12-02] MEDS: ACETAMINOPHEN TAB 650MG DOSE (2X325MG) PO PRN (14:30)
--- NOTE | 2020-12-02 15:52 | IPNPDOC ---
Date Seen The patient was seen on 12/01/20. Progress Note SUBJECTIVE: Patient was seen and examined at bedside. Overnight had intermittent bouts of coughing productive of rest, colored sputum. Status post bronchoscopy with biopsy on 11/26/[address] Pettit. Pain is well controlled. The left shoulder. Patient denies any chest pain, palpitations, shortness of breath, nausea, vomiting or diarrhea. OBJECTIVE PHYSICAL EXAMINATION: VITAL SIGNS: please see below General: NAD, comfortable HEENT: PERRLA, EOMI, sclerae clear Neck: supple, normal ROM, no JVD Respiratory: Diminished breath sounds bilaterally. No crackles. Currently on 1 L oxygen nasal cannula. CVS: RRR, normal S1, S2, no murmurs Abdo: soft, no masses, no hepatosplenomegaly, BS+, no rebound tenderness Extremities: Clubbing pronounced on hands. No edema. MSK: no joint deformities, normal ROM Neuro: no focal neuro deficits, moving all 4 extremities, CN2-12 intact. Strength 5/5 in all 4 extremities. No nystagmus. Psych: calm, cooperative, AAO x 3 LABORATORY DATA, IMAGING STUDIES, MICROBIOLOGY: Please see below. DVT prophylaxis ordered?: Heparin ASSESSMENT AND PLAN: 65 years old W with past medical history of pituitary tumor s/p resection and radiation, right lung carcinoma status post VATS in 2012, adrenal insufficiency on chronic prednisone, COPD, emphysema, coronary artery disease who presented to hospital with increased shortness of breath. Dr. Lemon isolated a left lung mass and recommended a biopsy via bronchoscopy. Patient underwent a transbronchial biopsy by Dr. Pettit on 11/26/20. Radiation oncology, Dr. Valdes was consulted for the scapular metastases with pain. Plan for 5 fractions of treatment. PROBLEMS: Left lung mass: -Admitting physician spoke with radiology that noted the left lung tumor mass with metastases to the scapula on CTA, no pulmonary emboli. -s/p transbronchial biopsy by Dr. Pettit 11/26, f/u pending pathology -consulted Dr. Martínez for scapular metastatic lesion with significant pain; s/p radiation treatment on 11/27 (1 of 5) - per Dr. Martínez, may be completed in the outpatient setting once cleared for DC -MRI of brain per onc, showing residual/recurrent tumor with a history of pituitary adenoma - no prior imaging to compare - will need oncology follow up on discharge -Consulted palliative care, appreciate pain management recs given history of opioid therapy intolerance. - fentanyl patch was recommended by Palliative services, but was not started, I suspect because of its possible nausea/vomiting side effects - based on palliative service recs, I will trial methadone 2.5 mg PO TID prn for pain control, along with tramadol 50 mg q8h prn - we will monitor qtc closely. - stopped methadone as may be contributing to vomiting - obtained IV access. Zofran IV Leukocytosis with what appears to be acute SOB and cough, so potentially with a postobstructive PNA -DC ceftriaxone/doxy (received 3 days) -sputum growing pseudomonas -Switch to PO levaquin. - leukocytosis seems to be improving, although it is difficult to be certain against a background of steroid use. COPD with acute exacerbation and superimposed pneumonia - Continue advair BID, duonebs q6h - sputum growing pseudomonas - DC ceftriaxone, doxycycline (completed 4 days each) - Switched to PO levaquin (day 2) - Prednisone 40 mg p.o. daily, will require prednisone taper on DC. 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 Martínez consulted, complete 1st of 5 radiation treatments. Can continue outpatient once cleared for DC. - patient has been refusing insertion of an IV - will tria used of methadone 2.5 mg PO TID prn as well as tramadol 50 mg q8h prn - we will monitor QTc closely. - we were able to obtain IV access - ordered IV zofran - discontinued methadone as possibly contributing to nausea and vomiting - will trial ibuprofen and prednisone for pain control due to bony met DVT ppx: heparin BID Dispo: After lengthy discussion with the patient's , Marc Coburn today. He is concerned about providing adequate care for her and believes he is incapable of providing oxygen as well as pain services at home. I explained to Mr. Coburn that, but at the current pain regimen does adequate. The patient is able to tolerate by mouth she will be cleared for discharge home and completed her radiation therapy as an outpatient. We may need involvement of case management, once the holiday weekend is over. VS, I&O, 24H, Fishbone Vital Signs/I&O Vital Signs Date Time Temp Pulse Resp B/P (MAP) Pulse Ox O2 Delivery O2 Flow Rate FiO2 12/02/20 14:00 97.7 87 18 104/57 (73) 93 Nasal Cannula 2.0 I&O- Last 24 Hours up to 6 AM 12/02/20 06:00 Intake Total 810 ml Output Total 200 ml Balance 610 ml Laboratory Data 24H LABS Laboratory Tests 2 12/02/20 09:20: Immature Granulocyte % (Auto) 1.8, Neutrophils (%) (Auto) 78.4H, Lymphocytes (%) (Auto) 12.9L, Monocytes (%) (Auto) 5.7, Eosinophils (%) (Auto) 1.0, Basophils (%) (Auto) 0.2, Neutrophils # (Auto) 13.0H, Lymphocytes # (Auto) 2.1, Monocytes # (Auto) 0.9H, Eosinophils # (Auto) 0.2, Basophils # (Auto) 0.0, Nucleated Red Blood Cells % (auto) 0.0, Anion Gap 13, Glomerular Filtration Rate 55.8, Calcium Level 8.9, Magnesium Level 2.2, Total Bilirubin 0.4, Aspartate Amino Transf (AST/SGOT) 31, Alanine Aminotransferase (ALT/SGPT) 20, Alkaline Phosphatase 104, Total Protein 5.9L, Albumin 2.9L, Albumin/Globulin Ratio 1.0L CBC/BMP Laboratory Tests 12/02/20 09:20 Microbiology Microbiology 11/25/20 Gram Stain - Final, Complete 11/25/20 Sputum Culture - Final, Complete Pseudomonas Aeruginosa 11/24/20 Blood Culture - Final, Complete NO GROWTH AFTER 5 DAYS 11/24/20 Respiratory Virus Panel (PCR) (KRYSTAL) - Final, Complete 11/24/20 Blood Culture - Final, Complete NO GROWTH AFTER 5 DAYS FABIEN CARBAJAL MD Dec 02, 2020 15:52
--- NOTE | 2020-12-02 15:57 | IPNPDOC ---
Date Seen The patient was seen on 12/02/20. Progress Note SUBJECTIVE: Patient seen and examined at bedside this morning. States that her nausea has improved on lorazepam and her pain is adequately controlled with ibuprofen, prednisone, and tramadol. Agent was off oxygen the time of my exam saturating at 90-93% on room air. Performed ambulatory pulse oximetry monitoring. The patient did not drop below 89%. However, per report, patient dropped to 82% on room air overnight. We will perform formal pulse oximetry monitoring to determine if patient qualifies for home oxygen. Resume chest pain, fevers, chills. She continues to have productive cough. Presently on Levaquin for Pseudomonas pneumonia. OBJECTIVE PHYSICAL EXAMINATION: VITAL SIGNS: please see below General: NAD, comfortable HEENT: PERRLA, EOMI, sclerae clear Neck: supple, normal ROM, no JVD Respiratory: Diminished breath sounds bilaterally. No crackles. CVS: RRR, normal S1, S2, no murmurs Abdo: soft, no masses, no hepatosplenomegaly, BS+, no rebound tenderness Extremities: Clubbing pronounced on hands. No edema. MSK: no joint deformities, normal ROM Neuro: no focal neuro deficits, moving all 4 extremities, CN2-12 intact. Strength 5/5 in all 4 extremities. No nystagmus. Psych: calm, cooperative, AAO x 3 LABORATORY DATA, IMAGING STUDIES, MICROBIOLOGY: Please see below. DVT prophylaxis ordered?: Heparin ASSESSMENT AND PLAN: 65 years old W with past medical history of pituitary tumor s/p resection and radiation, right lung carcinoma status post VATS in 2012, adrenal insufficiency on chronic prednisone, COPD, emphysema, coronary artery disease who presented to hospital with increased shortness of breath. Dr. Lemon isolated a left lung mass and recommended a biopsy via bronchoscopy. Patient underwent a transbronchial biopsy by Dr. Pettit on 11/26/20. Radiation oncology, Dr. Valdes was consulted for the scapular metastases with pain. Plan for 5 fractions of treatment. PROBLEMS: Left lung mass: -Admitting physician spoke with radiology that noted the left lung tumor mass with metastases to the scapula on CTA, no pulmonary emboli. -s/p transbronchial biopsy by Dr. Pettit 11/26. Pathology positive for Small Cell carcinoma. -consulted Dr. Martínez for scapular metastatic lesion with significant pain; s/p radiation treatment on 11/27 (1 of 5) - per Dr. Martínez, may be completed in the outpatient setting once cleared for DC -MRI of brain per onc, showing residual/recurrent tumor with a history of pituitary adenoma - no prior imaging to compare - will need oncology follow up on discharge -Consulted palliative care, appreciate pain management recs given history of opi oid therapy intolerance. - fentanyl patch was recommended by Palliative services, but was not started, I suspect because of its possible nausea/vomiting side effects - has not tolerated methadone or fentanyl - at this time, vomiting well controlled with lorazepam, and pain is well controlled with ibuprofen/prednisone and tramadol prn as recommended by palliative service - D/w Dr. Randall. Pathology confirmed small carcinoma. Patient will have follow up arranged with medical oncology at the [facility] upon DC. - perform noc ox overnight to determine if qualifies for O2. Leukocytosis with what appears to be acute SOB and cough, so potentially with a postobstructive PNA -DC ceftriaxone/doxy (received 3 days) -sputum growing pseudomonas -Switched to PO levaquin. - leukocytosis seems to be improving, although it is difficult to be certain against a background of steroid use. COPD with acute exacerbation and superimposed pneumonia - Continue advair BID, duonebs q6h - sputum growing pseudomonas - DC ceftriaxone, doxycycline (completed 4 days each) - Switched to PO levaquin (day 4) - Prednisone 40 mg p.o. daily, will require prednisone taper on DC. 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 Martínez consulted, completed 3 of 5 radiation treatments. Can continue outpatient once cleared for DC. - patient has been refusing insertion of an IV - will tria used of methadone 2.5 mg PO TID prn as well as tramadol 50 mg q8h prn - we will monitor QTc closely. - we were able to obtain IV access - ordered IV zofran - discontinued methadone as possibly contributing to nausea and vomiting - will trial ibuprofen and prednisone for pain control due to bony met DVT ppx: heparin BID Dispo: After lengthy discussion with the patient's , Marc Coburn today. He is concerned about providing adequate care for her and believes he is incapable of providing oxygen as well as pain services at home. I explained to Mr. Almas that, but at the current pain regimen does adequate. The patient is able to tolerate by mouth she will be cleared for discharge home and completed her radiation therapy as an outpatient. We may need involvement of case management, once the holiday weekend is over. VS, I&O, 24H, Fishbone Vital Signs/I&O Vital Signs Date Time Temp Pulse Resp B/P (MAP) Pulse Ox O2 Delivery O2 Flow Rate FiO2 12/02/20 14:00 97.7 87 18 104/57 (73) 93 Nasal Cannula 2.0 I&O- Last 24 Hours up to 6 AM 12/02/20 06:00 Intake Total 810 ml Output Total 200 ml Balance 610 ml Laboratory Data 24H LABS Laboratory Tests 2 12/02/20 09:20: Immature Granulocyte % (Auto) 1.8, Neutrophils (%) (Auto) 78.4H, Lymphocytes (%) (Auto) 12.9L, Monocytes (%) (Auto) 5.7, Eosinophils (%) (Auto) 1.0, Basophils (%) (Auto) 0.2, Neutrophils # (Auto) 13.0H, Lymphocytes # (Auto) 2.1, Monocytes # (Auto) 0.9H, Eosinophils # (Auto) 0.2, Basophils # (Auto) 0.0, Nucleated Red Blood Cells % (auto) 0.0, Anion Gap 13, Glomerular Filtration Rate 55.8, Calcium Level 8.9, Magnesium Level 2.2, Total Bilirubin 0.4, Aspartate Amino Transf (AST/SGOT) 31, Alanine Aminotransferase (ALT/SGPT) 20, Alkaline Phosphatase 104, Total Protein 5.9L, Albumin 2.9L, Albumin/Globulin Ratio 1.0L CBC/BMP Laboratory Tests 12/02/20 09:20 Microbiology Microbiology 11/25/20 Gram Stain - Final, Complete 11/25/20 Sputum Culture - Final, Complete Pseudomonas Aeruginosa 11/24/20 Blood Culture - Final, Complete NO GROWTH AFTER 5 DAYS 11/24/20 Respiratory Virus Panel (PCR) (KRYSTAL) - Final, Complete 11/24/20 Blood Culture - Final, Complete NO GROWTH AFTER 5 DAYS FABIEN CARBAJAL MD Dec 02, 2020 15:57
[2020-12-02 16:21] LABS: C REACTIVE PROTEIN QUANTITATIV 6.91 MG/DL (0.00-0.30)
--- NOTE | 2020-12-02 17:26 | IPNPDOC ---
Text Note Date of Service The patient was seen on 12/02/20. NOTE Nasrin is an unfortunate 65 year old female with small cell lung cance r. Her care has been complicated by extreme sensitivity to opiates (severe nausea and vomiting ), ongoing nausea. Her nausea has improved with ondansetron and lorazepam; her pain is somewhat controlled with ibuprofen, tramadol and prednisone. I was unable to see her yesterday as she was sound asleep and nursing reported she had expressed exhaustion so I chose to let her rest. Upon my arrival today, nursing reported that her nausea was quite well controlled, she was moving better and in much better spirits earlier today. However, she had just returned from [place] where she was informed her cancer is stage 4. She was understandably quite upset, but was willing to talk with me about her diagnosis and the plans for treatment. She stated she will be getting chemotherapy to slow the progress of her disease. She stated she knows there is no cure for her cancer, but she is hoping to stave off her as long as possible. 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 Nasrin stated she has HCP and that is Antonio, her , the alternate is her son Marc Monique. Marc Monique lives with them and she reported he does a lot of work around the home, cooks, cleans, and is a reliable support to them both. She stated she has had problems with her oxygen saturations dropping at night and it was her impression Dr. Carrera from radiation oncology might be arranging for home O2 for her. I spent some time with Nasrin talking about other family supports; she has two other sons but she does not think they will be especially helpful at this time as they do not live locally and there is some estrangement with one son. I chose not to approach the subject of advance directives today (she is a full code) since she was still processing the information about her diagnosis and upcoming treatment. Since did express she "will fight" as long as she can, and also acknowledged she feels less strong than she was a few months ago, and knows eventually she will of her cancer. In a separate conversation outside of the room, Antonio stated "I know I told her that she is just beginning to fight, but I know I'm lying, I know she is not going to make it, I just want to give her whatever encouragement I can." He also had questions about financial assistance for cremation and interrment costs. I do not have this information, however, Josefina Carrington [facility] may have some information in this regard and I told him I would contact her about it. I will arrange for Moriah to be seen in my clinic whenever she is scheduled at [facility] for follow up in one to two weeks. She and Antonio have my contact information and I told them SIRISHA is welcome to call me with any questions or concerns he may have. Time in 1530 Time out 1700. VS,Natobone, I+O VS, Fishbone, I+O Laboratory Tests 12/02/20 09:20 Vital Signs Date Time Temp Pulse Resp B/P (MAP) Pulse Ox O2 Delivery O2 Flow Rate FiO2 12/02/20 14:00 97.7 87 18 104/57 (73) 93 Nasal Cannula 2.0 I&O- Last 24 Hours up to 6 AM 12/02/20 06:00 Intake Total 810 ml Output Total 200 ml Balance 610 ml Shereen WIGGINS [employer] INFANTRY[employer] Dec 02, 2020 17:26
[2020-12-02 22:00] VITALS: BP 106/67
[2020-12-02 22:12] VITALS: O2SAT 94
[2020-12-03] MEDS: IPRATROPIUM 0.5MG/ALBUTEROL 2.5MG INH SOL UD 3ML (DUONEB) NEB SCH ×3 (02:00→12:59)
[2020-12-03] MEDS: traMADol 50 MG TAB PO PRN (04:51)
[2020-12-03] MEDS: LEVOTHYROXINE 75MCG TABLET (0.075MG) PO SCH (05:16)
[2020-12-03 06:00] VITALS: BP 131/67
[2020-12-03] MEDS: ADVAIR HFA 230/21MCG INHALER INH SCH (07:14)
[2020-12-03 07:26] LABS: C REACTIVE PROTEIN QUANTITATIV 3.59 MG/DL (0.00-0.30)
[2020-12-03] MEDS: ONDANSETRON 4MG/2ML VIAL IV PRN (09:05)
[2020-12-03] MEDS: GABAPENTIN 300 MG CAP PO SCH (09:06)
[2020-12-03] MEDS: guaiFENesin ER 600 MG TAB PO SCH (09:06)
[2020-12-03] MEDS: ASPIRIN 81MG ENTERIC TABLET PO SCH (09:06)
[2020-12-03] MEDS: OMEPRAZOLE 20 MG CAP PO SCH (09:06)
[2020-12-03] MEDS: predniSONE 20 MG TAB PO SCH (09:06)
[2020-12-03] MEDS: IRBESARTAN 150MG TAB PO SCH (09:07)
[2020-12-03] MEDS: LORazepam 0.5 MG TAB PO PRN (09:07)
[2020-12-03] MEDS: ATORVASTATIN 20 MG TAB PO SCH (09:07)
[2020-12-03] MEDS: HEPARIN SOD (PORCINE) 5000UNITS/ML 1ML VIAL/SYRINGE SC SCH (09:07)
[2020-12-03 09:08] VITALS: BP 127/75
[2020-12-03] MEDS: amLODIPine 5 MG TAB PO SCH (09:08)
[2020-12-03] MEDS: IBUPROFEN 600MG TAB PO PRN (09:14)
[2020-12-03 09:48] LABS: BASO # 0.1 10^3/uL (0.0-0.2); BASO % 0.4 % (0.0-1.0); EOS # 0.1 10^3/uL (0.0-0.5); EOS % 0.4 % (0.0-3.0); HEMATOCRIT 39.4 % (36.0-47.0); HEMOGLOBIN 12.6 g/dl (12.0-15.5); LYMPH # 1.8 10^3/uL (1.5-5.0); LYMPH % 11.4 % (24.0-44.0); MEAN CORPUSCULAR HEMOGLOBIN 30.9 pg (27.0-33.0); MEAN CORPUSCULAR VOLUME 96.6 fl (80.0-96.0); MONO # 1.2 10^3/uL (0.0-0.8); MONO % 7.5 % (2.0-8.0); NEUTROPHILS # 12.5 10^3/uL (1.5-8.5); NEUTROPHILS % 77.8 % (36.0-66.0); PLATELET COUNT, AUTOMATED 326 10^3/uL (150-450); RED BLOOD COUNT 4.08 10^6/uL (4.00-5.40); WHITE BLOOD COUNT 16.1 10^3/uL (4.0-10.0)
[2020-12-03 09:59] LABS: ALBUMIN 2.7 GM/DL (3.2-5.2); ALT/SGPT 24 U/L (12-78); BILIRUBIN,TOTAL 0.3 MG/DL (0.2-1.0); BLOOD UREA NITROGEN 17 MG/DL (7-18); CARBON DIOXIDE LEVEL 26 MEQ/L (21-32); CHLORIDE LEVEL 108 MEQ/L (98-107); CREATININE FOR GFR 0.69 MG/DL (0.55-1.30); GLOMERULAR FILTRATION RATE > 60.0 (>45); GLUCOSE, FASTING 85 MG/DL (70-100); MAGNESIUM LEVEL 2.3 MG/DL (1.8-2.4); POTASSIUM SERUM 4.4 MEQ/L (3.5-5.1); SODIUM LEVEL 142 MEQ/L (136-145); TOTAL PROTEIN 5.7 GM/DL (6.4-8.2)
--- NOTE | 2020-12-03 10:24 | NOCOX ---
NOCTURNAL OXIMETRY DATE: 12/02/2020 The study was performed on room air. Study of excellent technical quality. Mean oxygen saturation for this study 92%. There are desaturations noted, especially late, and oxygen saturation gets to a low of 83%. Oxygen saturations did remain below 88% for greater than 5 minutes. IMPRESSION: Abnormal nocturnal oximetry. Suggest adding 2 liters nasal cannula oxygen at night and correlate clinically.
--- NOTE | 2020-12-03 13:06 | DS.PDOC ---
Discharge Summary General Date of Admission Nov 24, 2020 at 19:24 Date of Discharge 12/03/20 Discharge Summary PROCEDURES PERFORMED DURING STAY: [None]. ADMITTING DIAGNOSES: 1. . DISCHARGE DIAGNOSES: 1. . COMPLICATIONS/CHIEF COMPLAINT: Dyspnea, Mass Of Left Lung. HISTORY OF PRESENT ILLNESS: "Patient is 65 years old female with past medical history of pituitary tumor status post resection and radiation, right lung carcinoma status post VATS, adrenal insufficiency on chronic prednisone, COPD, emphysema, coronary artery disease presented to hospital with increased shortness of breath. Patient stated that for the past week she has been having increased shortness of breath associated with intermittent cough and dark yellowish sputum production. Her physical science teacher Dr. Lemon found a left lung mass and recommended biopsy. Also patient reported left shoulder pain and she has a sling. In ER patient was found to have leukocytosis of 14.4, BNP 287. XR shows Suspicious area of mass/consolidation in the left perihilar/suprahilar region. Patient was consulted by oncology team, recommended to admit patient for lung biopsy." HOSPITAL COURSE: . DISCHARGE MEDICATIONS: Please see below. ALLERGIES: Please see below. PHYSICAL EXAMINATION ON DISCHARGE: VITAL SIGNS: please see below General: NAD, comfortable HEENT: PERRLA, EOMI, sclerae clear Neck: supple, normal ROM, no JVD Respiratory: lungs CTAB, no wheeze, no rales, no crackles CVS: RRR, normal S1, S2, no murmurs Abdo: soft, no masses, no hepatosplenomegaly, BS+, no rebound tenderness Extremities: no edema, pulses 2+ MSK: no joint deformities, normal ROM Neuro: no focal neuro deficits, moving all 4 extremities, CN2-12 intact. Streng th 5/5 in all 4 extremities. No nystagmus. Psych: calm, cooperative, AAO x 3 LABORATORY DATA: Please see below. IMAGING: PROGNOSIS: ACTIVITY: [As tolerated]. DIET: DISCHARGE PLAN: DC home with services. Antibiotic treatment course: complete additional 8 days of levaquin 750 mg PO daily, for a total of 10 days duration for pseudomonas pneumonia. Pain regimen will be: ibuprofen 600 mg q8h prn with prednisone daily, as well as tramadol 50 mg q8h prn. Anti-emetic regimen: lorazepam 0.5 mg q6h prn with zofran 4 mg q8h prn. Prednisone will be started at 40 mg PO daily, tapered by 10 mg every 4 days, and then continued at 10 mg daily until followed up with Dr. Lemon. Patient will need to follow up with Dr. Lemon, Dr. Carrera at [facility] Onc office, and Medical Oncology clinic at [facility]. Dr. Randall was informed of this patient, and consultation has been arranged for the dx of small cell lung cancer. Patient has RT dose 5/5 on 12/04/[address] Carrera. Nocturnal O2 has been arranged, to use 2L at night. DISPOSITION: home with services. DISCHARGE INSTRUCTIONS: . Please follow-up with your primary care doctor within 3-5 days . Please follow-up with Dr. Lemon within 1-2 weeks . Please follow-up with Dr. Carrera in 1-2 weeks . Please follow-up with [facility] Medical Oncology clinic in 1 week. . Please taking medications as prescribed. . If you develop bleeding, chest pain, shortness of breath, seizures, nausea, fevers, or otherwise worsening of your symptoms, please call 911 or return to the nearest emergency room ITEMS TO FOLLOWUP ON ON OUTPATIENT: 1. . DISCHARGE CONDITION: [Stable]. TIME SPENT ON DISCHARGE: 35 minutes Vital Signs/I&Os Vital Signs Date Time Temp Pulse Resp B/P (MAP) Pulse Ox O2 Delivery O2 Flow Rate FiO2 12/03/20 09:08 93 127/75 12/03/20 06:00 97.3 18 93 Nasal Cannula 2.0 I&O- Last 24 Hours up to 6 AM 12/03/20 06:00 Intake Total 1560 ml Balance 1560 ml Laboratory Data Labs 24H Laboratory Tests 2 12/03/20 06:29: Immature Granulocyte % (Auto) 2.5, Neutrophils (%) (Auto) 77.8H, Lymphocytes (%) (Auto) 11.4L, Monocytes (%) (Auto) 7.5, Eosinophils (%) (Auto) 0.4, Basophils (%) (Auto) 0.4, Neutrophils # (Auto) 12.5H, Lymphocytes # (Auto) 1.8, Monocytes # (Auto) 1.2H, Eosinophils # (Auto) 0.1, Basophils # (Auto) 0.1, Nucleated Red Blood Cells % (auto) 0.0 12/03/20 06:36: Anion Gap 8, Glomerular Filtration Rate > 60.0, Calcium Level 9.0, Magnesium Level 2.3, Total Bilirubin 0.3, Aspartate Amino Transf (AST/SGOT) 30, Alanine Aminotransferase (ALT/SGPT) 24, Alkaline Phosphatase 99, C-Reactive Protein, Quantitative 3.59H, Total Protein 5.7L, Albumin 2.7L, Albumin/Globulin Ratio 0.9L, Procalcitonin 0.35 CBC/BMP Laboratory Tests 12/03/20 06:29 12/03/20 06:36 Microbiology Microbiology 11/25/20 Gram Stain - Final, Complete 11/25/20 Sputum Culture - Final, Complete Pseudomonas Aeruginosa 11/24/20 Blood Culture - Final, Complete NO GROWTH AFTER 5 DAYS 11/24/20 Respiratory Virus Panel (PCR) (KRYSTAL) - Final, Complete 11/24/20 Blood Culture - Final, Complete NO GROWTH AFTER 5 DAYS Discharge Medications Scheduled Amlodipine Besylate (Amlodipine Besylate) 5 Mg Tablet, 5 MG PO DAILY, (Reported) Aspirin (Ecotrin) 81 Mg Tab, 81 MG PO DAILY, (Reported) Atorvastatin Calcium (Atorvastatin Calcium) 80 Mg Tablet, 80 MG PO DAILY, (Reported) Gabapentin (Gabapentin) 300 Mg Cap, 300 MG PO TID, (Reported) Irbesartan (Irbesartan) 150 Mg Tablet, 150 MG PO DAILY, (Reported) Levothyroxine Sodium (Levothyroxine Sodium) 75 Mcg Tablet, 75 MCG PO DAILY, (Re ported) Omeprazole (Omeprazole) 20 Mg Capsule.dr, 20 MG PO DAILY, (Reported) Prednisone (Prednisone) 5 Mg Tab, 5 MG PO DAILY, (Reported) Scheduled PRN Albuterol Sulfate (Ventolin Hfa) 18 Gm Hfa.aer.ad, 2 PUFFS INH Q4H PRN for SOB/WHEEZING, (Reported) Allergies Coded Allergies: Sulfa (Sulfonamide Antibiotics) (Unverified Allergy, Unknown, 11/24/20) codeine (Verified Adverse Reaction, Mild, N/V, 02/27/19) morphine (Verified Adverse Reaction, Mild, N/V, 02/27/19) oxycodone (Verified Adverse Reaction, Mild, N/V, 02/27/19) FABIEN CARBAJAL MD Dec 03, 2020 13:06
[2020-12-03] MEDS ORDERED: LevoFLOXacin 750 MG TABLET PO ONE (13:10)
[2020-12-03] MEDS ORDERED: TRAM50TA2 PO (13:23)
[2020-12-03] MEDS ORDERED: MUCI600T31 PO (13:23)
[2020-12-03] MEDS ORDERED: PRED10TA2 PO (13:23)
[2020-12-03] MEDS ORDERED: IBUP-1022 PO (13:23)
[2020-12-03] MEDS ORDERED: ATIV1TAB10 PO (13:23)
[2020-12-03] MEDS ORDERED: ACET1TAB55 PO (13:23)
[2020-12-03] MEDS ORDERED: OMEP-218 PO (13:23)
[2020-12-03] MEDS ORDERED: ADVA230A INH (13:23)
[2020-12-03] MEDS ORDERED: VENTAER INH (13:23)
[2020-12-03] MEDS ORDERED: LEVO750T13 PO (14:12)
== END 2020-12-03 15:13 | disposition home health service (06) | DRG 166 ==
LOC: M ED 14:08 → EDBD 14:08 → EDSEX 14:08 → M ED INP 19:24 → ENRESERV 21:34 → M MSPAV 22:31
PROVIDERS: ADMIT Internal Medicine; ATTEND Family Medicine
PROC: 0BBG8ZX Excision of Left Upper Lung Lobe, Via Natural or Artificial Opening Endoscopic, Diagnostic (ICD-10-PCS; principal; 2020-11-26 12:00)
DX: C34.92 Malignant neoplasm of unspecified part of left bronchus or lung (principal); J15.1 Pneumonia due to Pseudomonas; J44.1 Chronic obstructive pulmonary disease with (acute) exacerbation; E27.40 Unspecified adrenocortical insufficiency; C79.89 Secondary malignant neoplasm of other specified sites; J44.0 Chronic obstructive pulmonary disease with (acute) lower respiratory infection; C79.51 Secondary malignant neoplasm of bone; I10 Essential (primary) hypertension; D44.3 Neoplasm of uncertain behavior of pituitary gland; Z92.3 Personal history of irradiation; Z79.52 Long term (current) use of systemic steroids; I25.10 Atherosclerotic heart disease of native coronary artery without angina pectoris; Z79.82 Long term (current) use of aspirin; Z79.899 Other long term (current) drug therapy; Z88.2 Allergy status to sulfonamides; Z88.5 Allergy status to narcotic agent; K21.9 Gastro-esophageal reflux disease without esophagitis; G62.9 Polyneuropathy, unspecified; E78.5 Hyperlipidemia, unspecified; Z87.891 Personal history of nicotine dependence

== ENCOUNTER → 2020-12-07 | Outpatient (CLI) | payer MEDICARE, MEDICAID ==
[~2020-12-07] MED LIST changes: +ACET1TAB55 PO; +ADVA230A INH; +ATIV1TAB10 PO; +IBUP-1022 PO; +IRBE150T7 PO; +LEVO750T13 PO; +MODA100T13 PO; +MUCI600T31 PO; +OMEP-218 PO; +OXYC-517 PO; +TRAM50TA2 PO
--- NOTE | 2020-12-07 16:53 | REP ---
INDICATION: STAGING EUGENE LUNG CANCER C34.12. COMPARISON: Comparison chest CT study November 24, 2020.. TECHNIQUE: Fifty-five minutes following the intravenous injection of a 8.60 mCi dose of F-18 FDG, three-dimensional PET scintigraphy is acquired from the skull base to the proximal thighs. Triplanar noncontrast CT scanning is acquired through the same anatomic range for attenuation correction, and image registration with scan parameters optimized to minimize radiation exposure to the patient. PET scintigraphy and CT datasets were fused and displayed on a workstation with multiplanar and projection display capability. FINDINGS: Head and neck soft tissues are unremarkable. The large known destructive left scapular lesion is hypermetabolic. Maximum standard uptake value ranges 20.9. There is a small supraclavicular lymph node just above the left shoulder with maximum standard uptake value of 18.62. There are 2 sub cm subclavian lymph nodes which are hypermetabolic, the most avid of which has SUV value of 10.13. The huge right lung mass is markedly hypermetabolic. Maximum standard uptake value in this ranges up to 34.18. There is hypermetabolic subcarinal lymphadenopathy, maximum standard uptake value 27.38. There is some low-level pleural uptake in the left base. There are small nodular areas in the right lung which are not hypermetabolic. No abnormal hypermetabolic uptake is seen in the abdomen or pelvis. No other abnormal skeletal hypermetabolic focus is seen. IMPRESSION: The known large left lung mass, the subcarinal adenopathy, the supraclavicular adenopathy, the destructive left shoulder lesion, and 2 small left subclavian lymph nodes are all markedly hypermetabolic. <Electronically signed by Gavin Gao > 12/07/20 [id number]
== END ==
LOC: M PLARAD 09:32
PROVIDERS: ATTEND General Practice
DX: C34.12 Malignant neoplasm of upper lobe, left bronchus or lung (principal); M75.92 Shoulder lesion, unspecified, left shoulder; R59.9 Enlarged lymph nodes, unspecified
CPT/HCPCS: 78815; A9552

== ENCOUNTER 2020-12-14 05:49 | Emergency (ER) | payer MEDICARE, MEDICAID ==
[~2020-12-14] VITALS: Ht 154.9 cm; Wt 61.5 kg
--- NOTE | 2020-12-14 08:50 | REP ---
INDICATION: Left chest pain. COMPARISON: AP portable 11/26/2020, CT angio 11/24/2020. TECHNIQUE: AP portable seated FINDINGS: Right lung is well inflated. There is underlying fibrosis and COPD. The left lung field is now completely opacified in the mid and upper lung zone from mass and interval of atelectasis and or effusion or both. Some residual aeration of the left lower lung zone with the patchy opacity above the diaphragm. The left upper lobe bronchus is compressed by the mass in that left upper lung. Heart size cannot be fully evaluated due to opacification of the left hemithorax. There is dextroconvex curve thoracic spine. Clavicles, ribs and shoulders grossly intact. Tracheal airway remains midline. IMPRESSION: 1. A near complete loss of aeration left mid and upper lung zone from progression of atelectasis and effusion from bronchial obstruction related to the large left upper lobe mass. Some residual aeration in the left base with effusion and atelectatic change just above the diaphragm. 2. Fibrotic changes in the right lung stable. No other new or acute findings. <Electronically signed by Gilbert Sky > 12/14/20 [id number]
[2020-12-14 09:20] LABS: BLOOD UREA NITROGEN 10 MG/DL (7-18); CALCIUM LEVEL 8.3 MG/DL (8.8-10.2); CARBON DIOXIDE LEVEL 26 MEQ/L (21-32); CHLORIDE LEVEL 106 MEQ/L (98-107); CREATININE FOR GFR 0.61 MG/DL (0.55-1.30); GLOMERULAR FILTRATION RATE > 60.0 (>45); GLUCOSE, FASTING 81 MG/DL (70-100); POTASSIUM SERUM 4.2 MEQ/L (3.5-5.1); SODIUM LEVEL 140 MEQ/L (136-145)
[2020-12-14 09:25] LABS: INR 1.07; PROTHROMBIN TIME 14.1 SECONDS (12.5-14.3)
[2020-12-14 09:26] LABS: PARTIAL THROMBOPLASTIN TIME 29.9 SECONDS (24.2-38.5)
--- NOTE | 2020-12-14 09:39 | REP ---
INDICATION: EUGENE mass,increased SOB. COMPARISON: 11/24/2020. TECHNIQUE: CT chest performed without the use of intravenous contrast. Sagittal and coronal reconstruction images are performed. FINDINGS: The previously noted left hilar and superior mediastinal soft tissue mass is visualized. However, it is inseparable from the adjacent collapsed left upper lobe. This left upper lobe atelectasis is new when compared to the prior study. There is mild adjacent pleural fluid. There is mild patchy left lower lobe atelectasis/infiltrate. Subcarinal adenopathy measures 2.8 x 1.9 cm, increased since the prior study. A band of density in the right upper lobe associated with mild calcifications remains stable. The remaining right lung is unchanged in appearance. The heart is not significantly enlarged. There is a small amount of pericardial fluid/thickening. There is partially imaged left supraclavicular adenopathy, the visualized portion measures 2.3 x 1.4 cm. There is a partially imaged right renal cyst. The lytic lesion of the left scapula is again noted. IMPRESSION: Compared to the prior exam there is new collapse of the left upper lobe. There is also new patchy atelectasis/infiltrate in the left lower lobe. There is mild adjacent left pleural fluid. Left hilar and superior mediastinal mass is inseparable from the collapsed left upper lobe, exact measurements cannot be obtained without IV contrast. There is increased subcarinal adenopathy. Otherwise no change. <Electronically signed by Mark Link > 12/14/20 [id number]
[2020-12-14 10:38] LABS: BASO # 0.1 10^3/uL (0.0-0.2); BASO % 0.6 % (0.0-1.0); EOS # 0.4 10^3/uL (0.0-0.5); EOS % 2.9 % (0.0-3.0); HEMATOCRIT 37.3 % (36.0-47.0); HEMOGLOBIN 11.9 g/dl (12.0-15.5); MEAN CORPUSCULAR HEMOGLOBIN 30.8 pg (27.0-33.0); MEAN CORPUSCULAR HGB CONC 31.9 g/dl (32.0-36.5); MEAN CORPUSCULAR VOLUME 96.6 fl (80.0-96.0); MONO % 7.3 % (2.0-8.0); NEUTROPHILS # 10.5 10^3/uL (1.5-8.5); NEUTROPHILS % 74.2 % (36.0-66.0); PLATELET COUNT, AUTOMATED 311 10^3/uL (150-450); RED BLOOD COUNT 3.86 10^6/uL (4.00-5.40); WHITE BLOOD COUNT 14.2 10^3/uL (4.0-10.0)
[2020-12-14] MEDS ORDERED: oxyCODONE 5MG TAB PO ONE (11:05)
[2020-12-14] MEDS ORDERED: ONDANSETRON 4MG/2ML VIAL IV ONE (11:45)
[2020-12-14 13:10] VITALS: BP 113/63
--- NOTE | 2020-12-14 13:36 | ED PDOC ---
Post-Departure Follow-Up ct chest faxed to [facility] for fu Jack Rawls MD Dec 14, 2020 13:36
--- NOTE | 2020-12-14 21:10 | ECGEPIP ---
[facility] - ED Test Date: 2020-12-14 Pat Name: MAX MARTI Department: Room: - Gender: Female [employer]: OMI : 1955 Requested By: Neo Brooks Order Number: [id number] Reading MD: Olman Moran Measurements Intervals [place] Rate: 85 P: 51 NJ: 130 QRS: 31 QRSD: 68 T: 48 QT: 362 QTc: 430 Interpretive Statements Normal sinus rhythm with sinus arrhythmia Low voltage QRS Delayed anterior R wave progression Nonspecific T wave abnormality Similar to tracing done 12-01-20 Electronically Signed on 12-14-2020 21:10:28 EDT by Olman Moran
[2020-12-14] MEDS ORDERED: PRED10TA2 PO (22:06)
[2020-12-14] MEDS ORDERED: ATIV1TAB10 PO (22:06)
[2020-12-14] MEDS ORDERED: PROAAER10 INH (22:06)
[2020-12-14] MEDS ORDERED: METO1TAB7 PO (22:06)
[2020-12-14] MEDS ORDERED: OMEP1CAP73 PO (22:06)
[2020-12-14] MEDS ORDERED: ADVA230A INH (22:06)
[2020-12-14] MEDS ORDERED: MUCI600T31 PO (22:06)
[2020-12-14] MEDS ORDERED: TESS100C PO (22:06)
[2020-12-14] MEDS ORDERED: NYST50SS SSP (22:06)
[2020-12-15] MEDS ORDERED: ONDA-83 PO (15:14)
[2020-12-15] MEDS ORDERED: PROC10TA4 PO (16:48)
== END 2020-12-14 13:19 | disposition home or self-care (01) ==
LOC: M ED 05:49
DX: C34.12 Malignant neoplasm of upper lobe, left bronchus or lung (principal); J44.9 Chronic obstructive pulmonary disease, unspecified; I10 Essential (primary) hypertension; E78.5 Hyperlipidemia, unspecified; E07.9 Disorder of thyroid, unspecified; K21.9 Gastro-esophageal reflux disease without esophagitis; I25.10 Atherosclerotic heart disease of native coronary artery without angina pectoris; G40.909 Epilepsy, unspecified, not intractable, without status epilepticus; Z79.899 Other long term (current) drug therapy; Z79.890 Hormone replacement therapy; Z79.82 Long term (current) use of aspirin; Z88.1 Allergy status to other antibiotic agents; Z88.2 Allergy status to sulfonamides; Z88.5 Allergy status to narcotic agent; Z87.891 Personal history of nicotine dependence
CPT/HCPCS: 36415; 71045; 71250; 80048; 85025; 85610; 85730; 86850; 86900; 86901; 87798; 93005; 96374; 99285; J2405

== ENCOUNTER 2020-12-14 15:25 | Observation (INO) | payer MEDICARE, MEDICAID ==
[~2020-12-14] VITALS: Ht 152.4 cm; Wt 55.5 kg
[2020-12-14 18:15] VITALS: BP 126/75
[2020-12-14] MEDS ORDERED: ACETAMINOPHEN TAB 650MG DOSE (2X325MG) PO PRN (18:35)
[2020-12-14] MEDS ORDERED: traMADol 50 MG TAB PO PRN (18:50)
[2020-12-14] MEDS: ONDANSETRON 4MG/2ML VIAL IV SCH (19:05)
--- NOTE | 2020-12-14 19:06 | HPEPDOC ---
General Date of Admission Dec 14, 2020 at 17:50 Date of Service: Dec 14, 2020 Chief Complaint The patient is a 65-year-old female admitted with a reason for visit of Small Cell Lung Cancer. History of Present Illness Patient is 65 years old female with past medical history of pituitary tumor status post resection and radiation, right lung carcinoma status post VATS, adrenal insufficiency on chronic prednisone, COPD, emphysema, coronary artery disease presented to hospital after chemotherapy and for observation. Patient has a history of pituitary tumor diagnosed 2006 when she was residing in [place] and underwent 2 surgeries of the brain followed by radiation. On 03 August 2012 she was found to have right lung mass and underwent surgery. Patient was found to have small cell lung cancer. Around 1 month ago patient was found to have left shoulder mass consistent with metastatic disease. Patient was admitted to [facility] and CT-guided biopsy of the mass revealed small cell lung carcinoma. She received 5 radiation under the care of Dr. Martínez with last radiation on Monday, 04 December 2020. Also PET CT on 27 November 2011 showed large left lung mass. Today patient received immune and chemotherapy in the oncology office and she was recommended to stay for observation for 24 hours. Patient complains of nausea and weakness Home Medications Scheduled Amlodipine Besylate (Amlodipine Besylate) 5 Mg Tablet, 5 MG PO DAILY, (Reported) Aspirin (Ecotrin) 81 Mg Tab, 81 MG PO DAILY, (Reported) Atorvastatin Calcium (Atorvastatin Calcium) 80 Mg Tablet, 80 MG PO DAILY, (Reported) Gabapentin (Gabapentin) 300 Mg Cap, 300 MG PO TID, (Reported) Irbesartan (Irbesartan) 150 Mg Tablet, 150 MG PO DAILY, (Reported) Levothyroxine Sodium (Levothyroxine Sodium) 75 Mcg Tablet, 75 MCG PO DAILY, (Reported) Modafinil (Modafinil) 100 Mg Tablet, 1 TAB PO DAILY Omeprazole (Omeprazole) 20 Mg Capsule.dr, 20 MG PO DAILY Prednisone (Prednisone) 10 Mg Tablet, 40 MG PO DAILY PREDNISONE TAPER SCHEDULE: 40 MG X 4 DAYS 30 MG X 4 DAYS 20 MG X 4 DAYS 10 MG X 8 DAYS TOTAL OF 20 DAYS, 44 TABS Scheduled PRN Acetaminophen (Acetaminophen) 325 Mg Tablet, 650 MG PO Q4H PRN for MILD PAIN (PS 1-4) Albuterol Sulfate (Ventolin Hfa) 18 Gm Hfa.aer.ad, 2 PUFFS INH Q4H PRN for SOB/WHEEZING Ibuprofen (Ibuprofen) 600 Mg Tablet, 600 MG PO Q6HP PRN for MODERATE PAIN (PS 5- 7) Lorazepam (Ativan) 0.5 Mg Tablet, 0.5 MG PO Q6H PRN for VOMITING Oxycodone HCl (Oxycodone HCl) 5 Mg Tablet, 5 MG PO 6XD PRN for pain Tramadol HCl (Tramadol HCl) 50 Mg Tablet, 50 MG PO Q8HP PRN for SEVERE PAIN (PS 8-10) Allergies Coded Allergies: Sulfa (Sulfonamide Antibiotics) (Verified Allergy, Mild, Rash, 12/14/20) codeine (Verified Adverse Reaction, Mild, N/V, 02/27/19) morphine (Verified Adverse Reaction, Mild, N/V, 02/27/19) oxycodone (Verified Adverse Reaction, Mild, N/V, 02/27/19) Past Medical History Medical History PITUITARY TUMOR S/P SURGERY X 2, RADIATION X 1; UNSUCCESSFULLY TREATED; MRI YEARLY WITH NEUROSURGERY - DR. 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 WOLF HLD HYPOTHYROIDISM Surgical History PITUITARY SURGERY 2004 SECOND PITUITARY TUMOR COMPLICATED BY L EYE BLINDNESS AND ADRENAL INSUFFICIENCY 2004 R LUNG BX COMPLICATED WITH COLLAPSED LUNG AND CHEST TUBE 06/2012 VATS FOR R LUNG 07/2012 COLONOSCOPY AT [facility] - NORMAL PER PATIENT 2016 Family History FATHER: , VALVE REPLACEMENT, CAD MOTHER: , CANCER BEHIND EYE, BREAST CANCER IN BOTH BREASTS, OVARIAN CANCER, DIABETES, BRAIN TUMOR SIBLINGS: SIBLINGS ARE ALL ; 1 BROTHER IN [place], 1 BROTHER OF HEART PROBLEMS, 1 BROTHER OF A BRAIN VIRUS, 1 SISTER OF MS, 1 SISTER HAD OVARIAN CANCER DAUGHTER(S): DOESN'T TALK TO 2 OF HER CHILDREN; 2 YOUNGEST SONS ARE HEALTHY MATERNAL GRAND MOTHER: OVARIAN CANCER 3 BROTHER(S) , 1 SISTER(S) . 3 SON(S) , 1 DAUGHTER(S) . DENIES KNOWN FAMILY HISTORY OF COLON CANCER Social History * Smoker: former Smoker Alcohol: Denies Drugs: denies A-FIB/CHADSVASC A-FIB History Current/History of A-Fib/PAF?: No Current PO Anticoag Therapy: No Review of Systems Constitutional: Denies: Chills, Fever Eyes: Denies: Pain ENT: Denies: Head Aches Skin: Denies: Rash, Lesions Pulmonary: Reports: Dyspnea Cardiovascular: Denies: Palpitations, Orthopnea Gastrointestinal: Denies: Nausea Genitourinary: Denies: Dysuria, Frequency Endocrine: Denies: Polydipsia Musculoskeletal: Reports: Shoulder Pain Neurological: Denies: Weakness Psych: Reports: Mood Normal Physical Examination General Exam: Positive: Alert, Cooperative Eye Exam: Positive: PERRLA ENT Exam: Positive: Atraumatic Neck Exam: Positive: Supple; Negative: JVD Chest Exam: Positive: Rhonchi Heart Exam: Positive: Rate Normal Telemetry: Positive: No significant arrhythmia Abdomen Exam: Positive: Normal bowel sounds Extremity Exam: Positive: Clubbing Skin Exam: Positive: Nl turgor and temperature Neuro Exam: Positive: Cranial Nerves 3-12 NL Psych Exam: Positive: Mood NL, Oriented x 3 Vital Signs Vital Signs Date Time Temp Pulse Resp B/P (MAP) Pulse Ox O2 Delivery O2 Flow Rate FiO2 12/14/20 18:15 97.6 73 19 126/75 (92) 95 Nasal Cannula 2.0 Assessment/Plan Patient is 65 years old female with past medical history of pituitary tumor status post resection and radiation, right lung carcinoma status post VATS, adrenal insufficiency on chronic prednisone, COPD, emphysema, coronary artery disease presented to hospital after chemotherapy and for observation. Patient has a history of pituitary tumor diagnosed 2006 when she was residing in [place] and underwent 2 surgeries of the brain followed by radiation. On 03 August 2012 she was found to have right lung mass and underwent surgery. Patient was found to have small cell lung cancer. Around 1 month ago patient was found to have left shoulder mass consistent with metastatic disease. Patient was admitted to [facility] and CT-guided biopsy of the mass revealed small cell lung carcinoma. She received 5 radiation under the care of Dr. Martínez with last radiation on Monday, 04 December 2020. Also PET CT on 27 November 2011 showed large left lung mass. Today patient received immune and chemotherapy in the oncology office and she was recommended to stay for observation for 24 hours. Patient complains of nausea and weakness Problems (1) Nausea & vomiting Status: Acute Problem Text: Secondary to chemotherapy Zofran IV (2) Lung cancer metastatic to bone Status: Chronic Problem Text: Metastatic small cell carcinoma Follow-up with oncologist (3) COPD (chronic obstructive pulmonary disease) Status: Chronic Problem Text: Not in acute exacerbation Continue inhalers (4) Hypertension Status: Chronic Problem Text: Continue home meds (5) Left arm pain Status: Chronic Problem Text: Secondary to metastasis Continue pain management Plan / VTE VTE Prophylaxis Ordered?: Yes JILLIAN SPENCER DO Dec 14, 2020 19:06
[2020-12-14 20:00] VITALS: BP 125/68
[2020-12-14] MEDS: NS 1,000 ML IV SCH (20:58)
[2020-12-14] MEDS ORDERED: PRED10TA2 PO (22:06)
[2020-12-14] MEDS ORDERED: OMEP1CAP73 PO (22:06)
[2020-12-14] MEDS ORDERED: ADVA230A INH (22:06)
[2020-12-14] MEDS ORDERED: PROAAER10 INH (22:06)
[2020-12-14] MEDS ORDERED: TESS100C PO (22:06)
[2020-12-14] MEDS ORDERED: ATIV1TAB10 PO (22:06)
[2020-12-14] MEDS ORDERED: METO1TAB7 PO (22:06)
[2020-12-14] MEDS ORDERED: MUCI600T31 PO (22:06)
[2020-12-14] MEDS ORDERED: NYST50SS SSP (22:06)
[2020-12-15] VITALS: BP 110/67
[2020-12-15] MEDS: ONDANSETRON 4MG/2ML VIAL IV SCH ×2 (02:17→07:05)
[2020-12-15 04:00] VITALS: BP 120/70
[2020-12-15] MEDS: NS 1,000 ML IV SCH (05:15)
[2020-12-15] MEDS ORDERED: LEVOTHYROXINE 75MCG TABLET (0.075MG) PO SCH (06:00)
[2020-12-15 06:12] LABS: HEMATOCRIT 36.1 % (36.0-47.0); HEMOGLOBIN 11.5 g/dl (12.0-15.5); MEAN CORPUSCULAR HEMOGLOBIN 30.7 pg (27.0-33.0); MEAN CORPUSCULAR HGB CONC 31.9 g/dl (32.0-36.5); MEAN CORPUSCULAR VOLUME 96.3 fl (80.0-96.0); PLATELET COUNT, AUTOMATED 353 10^3/uL (150-450); RED BLOOD COUNT 3.75 10^6/uL (4.00-5.40); WHITE BLOOD COUNT 14.1 10^3/uL (4.0-10.0)
[2020-12-15 06:40] LABS: ALBUMIN 2.4 GM/DL (3.2-5.2); ALT/SGPT 17 U/L (12-78); BILIRUBIN,TOTAL 0.4 MG/DL (0.2-1.0); BLOOD UREA NITROGEN 17 MG/DL (7-18); CALCIUM LEVEL 7.9 MG/DL (8.8-10.2); CARBON DIOXIDE LEVEL 27 MEQ/L (21-32); CHLORIDE LEVEL 110 MEQ/L (98-107); CREATININE FOR GFR 0.54 MG/DL (0.55-1.30); GLOMERULAR FILTRATION RATE > 60.0 (>45); GLUCOSE, FASTING 95 MG/DL (70-100); MAGNESIUM LEVEL 2.5 MG/DL (1.8-2.4); POTASSIUM SERUM 4.8 MEQ/L (3.5-5.1); SODIUM LEVEL 143 MEQ/L (136-145); TOTAL PROTEIN 5.3 GM/DL (6.4-8.2)
[2020-12-15] MEDS ORDERED: BENZONATATE 100 MG CAP PO PRN (07:40)
[2020-12-15] MEDS ORDERED: guaiFENesin ER 600 MG TAB PO PRN (07:40)
[2020-12-15] MEDS ORDERED: oxyCODONE 5MG TAB PO PRN (07:40)
[2020-12-15] MEDS ORDERED: LORazepam 0.5 MG TAB PO PRN (07:40)
[2020-12-15] MEDS ORDERED: ALBUTEROL 90 MCG/ACT 8GM HFA INHALER INH PRN (07:40)
[2020-12-15 07:59] VITALS: BP 133/66
[2020-12-15] MEDS ORDERED: ADVAIR HFA 230/21MCG INHALER INH SCH (08:00)
[2020-12-15] MEDS ORDERED: IRBESARTAN 150MG TAB PO SCH (09:00)
[2020-12-15] MEDS ORDERED: METOPROLOL SUCC (TopROL XL) 50MG **XL** TAB PO SCH (09:00)
[2020-12-15] MEDS ORDERED: amLODIPine 5 MG TAB PO SCH (09:00)
[2020-12-15] MEDS ORDERED: NYSTATIN 500,000 U/5 ML SUSP UDC SSP SCH (09:00)
[2020-12-15] MEDS ORDERED: predniSONE 10 MG TAB PO SCH (09:00)
[2020-12-15] MEDS ORDERED: HEPARIN SOD (PORCINE) 5000UNITS/ML 1ML VIAL/SYRINGE SC SCH (09:00)
[2020-12-15] MEDS ORDERED: ATORVASTATIN 20 MG TAB PO SCH (09:00)
[2020-12-15] MEDS ORDERED: MODAFINIL 100 MG TABLET PO SCH (09:00)
[2020-12-15] MEDS ORDERED: OMEPRAZOLE 20 MG CAP PO SCH (09:00)
[2020-12-15] MEDS ORDERED: GABAPENTIN 300 MG CAP PO SCH (09:00)
[2020-12-15] MEDS ORDERED: ASPIRIN 81MG ENTERIC TABLET PO SCH (09:00)
[2020-12-15 09:14] VITALS: BP 133/66
[2020-12-15] MEDS ORDERED: ONDA-83 PO (15:14)
--- NOTE | 2020-12-15 16:42 | DS.PDOC ---
Discharge Summary General Date of Admission Dec 14, 2020 at 17:50 Date of Discharge 12/15/20 Discharge Summary PROCEDURES PERFORMED DURING STAY: [None]. ADMITTING DIAGNOSES: Nausea & vomiting Lung cancer metastatic to bone COPD (chronic obstructive pulmonary disease) Hypertension Left arm pain DISCHARGE DIAGNOSES: Nausea & vomiting Lung cancer metastatic to bone COPD (chronic obstructive pulmonary disease) Hypertension Left arm pain COMPLICATIONS/CHIEF COMPLAINT: Small Cell Lung Cancer. HISTORY OF PRESENT ILLNESS: Patient is 65 years old female with past medical history of pituitary tumor status post resection and radiation, right lung carcinoma status post VATS, adrenal insufficiency on chronic prednisone, COPD, emphysema, coronary artery disease presented to hospital after chemotherapy and for observation. Patient has a history of pituitary tumor diagnosed 2006 when she was residing in [place] and underwent 2 surgeries of the brain followed by radiation. On 03 August 2012 she was found to have right lung mass and underwent surgery. Patient was found to have small cell lung cancer. Around 1 month ago patient was found to have left shoulder mass consistent with metastatic disease. Patient was admitted to [facility] and CT- guided biopsy of the mass revealed small cell lung carcinoma. She received 5 ra diation under the care of Dr. Martínez with last radiation on Monday, 04 December 2020. Also PET CT on 27 November 2011 showed large left lung mass. Today patient received immune and chemotherapy in the oncology office and she was recommended to stay for observation for 24 hours. Patient complains of nausea and weakness HOSPITAL COURSE: During the hospital stay the following issues addressed Overnight patient did not develop any allergic reaction or multiple episodes of vomiting DISCHARGE MEDICATIONS: Please see below. ALLERGIES: Please see below. PHYSICAL EXAMINATION ON DISCHARGE: VITAL SIGNS: Please see below. Physical Examination General Exam: Positive: Alert, Cooperative Eye Exam: Positive: PERRLA ENT Exam: Positive: Atraumatic Neck Exam: Positive: Supple; Negative: JVD Chest Exam: Positive: Rhonchi Heart Exam: Positive: Rate Normal Telemetry: Positive: No significant arrhythmia Abdomen Exam: Positive: Normal bowel sounds Extremity Exam: Positive: Clubbing Skin Exam: Positive: Nl turgor and temperature Neuro Exam: Positive: Cranial Nerves 3-12 NL Psych Exam: Positive: Mood NL, Oriented x 3 LABORATORY DATA: Please see below. PROGNOSIS: Poor ACTIVITY: [As tolerated]. DIET: Regular DISPOSITION: 01 Home, Self-Care. ITEMS TO FOLLOWUP ON ON OUTPATIENT: Follow-up with oncologist DISCHARGE CONDITION: [Stable]. TIME SPENT ON DISCHARGE: 20 minutes. Vital Signs/I&Os Vital Signs Date Time Temp Pulse Resp B/P (MAP) Pulse Ox O2 Delivery O2 Flow Rate FiO2 12/15/20 11:11 20 12/15/20 10:09 2.0 12/15/20 09:14 73 133/66 12/15/20 07:59 97.5 96 Nasal Cannula I&O- Last 24 Hours up to 6 AM 12/15/20 06:00 Intake Total 900 ml Balance 900 ml Laboratory Data Labs 24H Laboratory Tests 2 12/15/20 05:39: Nucleated Red Blood Cells % (auto) 0.0, Anion Gap 6L, Glomerular Filtration Rate > 60.0, Calcium Level 7.9L, Magnesium Level 2.5H, Total Bilirubin 0.4, Aspartat e Amino Transf (AST/SGOT) 44H, Alanine Aminotransferase (ALT/SGPT) 17, Alkaline Phosphatase 121H, Total Protein 5.3L, Albumin 2.4L, Albumin/Globulin Ratio 0.8L CBC/BMP Laboratory Tests 12/15/20 05:39 Discharge Medications Scheduled Amlodipine Besylate (Amlodipine Besylate) 5 Mg Tablet, 5 MG PO DAILY, (Reported) Aspirin (Ecotrin) 81 Mg Tab, 81 MG PO DAILY, (Reported) Atorvastatin Calcium (Atorvastatin Calcium) 80 Mg Tablet, 80 MG PO DAILY, (Reported) Fluticasone Propion/Salmeterol (Advair Hfa 230-21 Mcg Inhaler) 12 Gm Hfa.aer.ad, 2 PUFF INH BID, (Reported) Gabapentin (Gabapentin) 300 Mg Cap, 300 MG PO TID, (Reported) Irbesartan (Irbesartan) 150 Mg Tablet, 150 MG PO DAILY, (Reported) Levothyroxine Sodium (Levothyroxine Sodium) 75 Mcg Tablet, 75 MCG PO DAILY, (Reported) Metoprolol Succinate (Metoprolol Succinate) 50 Mg Tab.er.24h, 50 MG PO DAILY, (Reported) Modafinil (Modafinil) 100 Mg Tablet, 1 TAB PO DAILY Nystatin (Nystatin Oral Susp) 100,000 Unit/1 Ml Oral.susp, 4 ML SSP QID, (Reported) STARTED 12/09/20 Omeprazole (Omeprazole) 20 Mg Capsule.dr, 20 MG PO DAILY, (Reported) Prednisone (Prednisone) 10 Mg Tablet, 10 MG PO TAPER, (Reported) 40MG FOR 4 DAYS, 30MG FOR 4 DAYS, 20MG FOR 4 DAYS, 10MG FOR 8 DAYS: STARTED ON 12/03/20 Scheduled PRN Albuterol Sulfate (Proair Hfa) 8.5 Gm Hfa.aer.ad, 2 PUFF INH Q4H PRN for SHORTNESS OF BREATH, (Reported) Benzonatate (Tessalon Perle) 100 Mg Capsule, 100 MG PO TID PRN for COUGH, (Reported) Guaifenesin (Mucinex) 600 Mg Tab.er.12h, 1,200 MG PO BID PRN for CONGESTION, (Reported) Lorazepam (Ativan) 0.5 Mg Tablet, 0.5 MG PO Q6H PRN for ANXIETY, (Reported) Ondansetron HCl (Ondansetron HCl) 4 Mg Tablet, 1 TAB PO TIDP PRN for nausea/vomiting Oxycodone HCl (Oxycodone HCl) 5 Mg Tablet, 5 MG PO 6XD PRN for pain Allergies Coded Allergies: Sulfa (Sulfonamide Antibiotics) (Verified Allergy, Mild, Rash, 12/14/20) codeine (Verified Adverse Reaction, Mild, N/V, 02/27/19) morphine (Verified Adverse Reaction, Mild, N/V, 02/27/19) oxycodone (Verified Adverse Reaction, Mild, N/V, 02/27/19) JILLIAN SPENCER DO Dec 15, 2020 16:42
[2020-12-15] MEDS ORDERED: PROC10TA4 PO (16:48)
== END 2020-12-15 14:10 | disposition home or self-care (01) ==
LOC: M PCU 17:50
PROVIDERS: ADMIT Internal Medicine Nephrology; ATTEND Internal Medicine Nephrology
DX: C79.89 Secondary malignant neoplasm of other specified sites (principal); T45.1X5A Adverse effect of antineoplastic and immunosuppressive drugs, initial encounter; C34.92 Malignant neoplasm of unspecified part of left bronchus or lung; M79.602 Pain in left arm; J44.9 Chronic obstructive pulmonary disease, unspecified; I10 Essential (primary) hypertension; E27.40 Unspecified adrenocortical insufficiency; I25.10 Atherosclerotic heart disease of native coronary artery without angina pectoris; Z85.841 Personal history of malignant neoplasm of brain; M54.81 Occipital neuralgia; E03.9 Hypothyroidism, unspecified; E78.5 Hyperlipidemia, unspecified; Z87.891 Personal history of nicotine dependence; Z79.899 Other long term (current) drug therapy; Z79.82 Long term (current) use of aspirin; Z79.52 Long term (current) use of systemic steroids; Z88.2 Allergy status to sulfonamides; Z88.5 Allergy status to narcotic agent; Z92.3 Personal history of irradiation
CPT/HCPCS: 36415; 80053; 83735; 85027; 96366; 96367; 96375; 96376; 96413; 96417; 97161; 97165; G0378; J1100; J1453; J2405; J2469; J7512; J9045; J9181

== ENCOUNTER 2020-12-25 13:06 | Outpatient (RCR) | payer MEDICARE, MEDICAID ==
--- NOTE | 2020-12-15 15:12 | RADENCPD ---
Date/Time of Encounter Date of Encounter: Dec 15, 2020 Time of Encounter: 15:10 Encounter Nasrin has experienced acute decompensation of her respiratory function in the last few days, she has started chemotherapy as of yesterday. Imaging in the ED revealed complete left mainstem obstruction from tumor. Given this and in discussion with Dr. Randall, we have agreed to initiate thoracic RT now. I will give 30 Gy in 10 fractions and expedite her simulation (today) and start of treatment on 12/17/20. Nasrin agreed. LIZ OVERTON MD Dec 15, 2020 15:12
[~2020-12-25 13:06] MED LIST changes: +NYST50SS SSP; +OMEP1CAP73 PO; +ONDA-83 PO; +PROAAER10 INH; +PROC10TA4 PO; +TESS100C PO
[2020-12-27] MEDS ORDERED: ADVA230A INH (08:50)
[2020-12-27] MEDS ORDERED: MODA100T13 PO (08:50)
[2020-12-27] MEDS ORDERED: OXYC-517 PO (08:54)
[2020-12-27] MEDS ORDERED: ONDA-83 PO (08:54)
== END 2020-12-26 ==
LOC: M ONCR 13:06
PROVIDERS: ATTEND General Practice
DX: C34.12 Malignant neoplasm of upper lobe, left bronchus or lung (principal); C79.51 Secondary malignant neoplasm of bone

== ENCOUNTER 2020-12-27 05:26 | Inpatient (IN) | payer MEDICARE, MEDICAID ==
[~2020-12-27] VITALS: Ht 170.2 cm; Wt 54.0 kg
[2020-12-27] MEDS ORDERED: ONDANSETRON 4MG/2ML VIAL IV ONE (05:50)
[2020-12-27 06:06] LABS: VENOUS BASE EXCESS 3.3 (-2.0-2.0); VENOUS HCO3 27.9 MEQ/L (23.0-27.0); VENOUS O2 SATURATION 95.7 % (60.0-80.0); VENOUS PARTIAL PRESSURE CO2 42.6 mmHg (38.0-50.0); VENOUS PARTIAL PRESSURE O2 73.4 mmHg (30.0-50.0); VENOUS PH 7.434 UNITS (7.330-7.430); VENOUS STANDARD HCO3 27.4 MEQ/L; VENOUS TOTAL CO2 29.2 MEQ/L (24.0-28.0)
[2020-12-27 06:13] LABS: BASO % 1.5 % (0.0-1.0); HEMATOCRIT 31.2 % (36.0-47.0); HEMOGLOBIN 10.2 g/dl (12.0-15.5); LYMPH # 0.5 10^3/uL (1.5-5.0); LYMPH % 73.1 % (24.0-44.0); MEAN CORPUSCULAR HEMOGLOBIN 31.1 pg (27.0-33.0); MEAN CORPUSCULAR HGB CONC 32.7 g/dl (32.0-36.5); MEAN CORPUSCULAR VOLUME 95.1 fl (80.0-96.0); MONO # 0.1 10^3/uL (0.0-0.8); MONO % 19.4 % (2.0-8.0); RED BLOOD COUNT 3.28 10^6/uL (4.00-5.40)
[2020-12-27] MEDS ORDERED: ACETAMINOPHEN TAB 650MG DOSE (2X325MG) PO ONE (06:25)
[2020-12-27 06:40] LABS: PLATELET COUNT, AUTOMATED 57 10^3/uL (150-450); WHITE BLOOD COUNT 0.7 10^3/uL (4.0-10.0)
[2020-12-27 06:48] LABS: BLOOD UREA NITROGEN 13 MG/DL (7-18); CALCIUM LEVEL 7.7 MG/DL (8.8-10.2); CARBON DIOXIDE LEVEL 29 MEQ/L (21-32); CHLORIDE LEVEL 103 MEQ/L (98-107); CK-MB VALUE MASS < 1.0 NG/ML (<3.6); CPK CREATINE PHOSPHOKINASE 23 U/L (26-192); CREATININE FOR GFR 0.77 MG/DL (0.55-1.30); ETHYL ALCOHOL (ETHANOL) < 0.003 % (0.000-0.010); GLOMERULAR FILTRATION RATE > 60.0 (>45); GLUCOSE, FASTING 95 MG/DL (70-100); MB/CK RELATIVE INDEX 4.35 (< OR =4); POTASSIUM SERUM 3.6 MEQ/L (3.5-5.1); SODIUM LEVEL 138 MEQ/L (136-145); THYROID STIMULATING HORMONE 0.092 uIU/ML (0.358-3.740); TROPONIN I < 0.02 NG/ML (< 0.10)
[2020-12-27] MEDS ORDERED: PIPERACILLIN/TAZOBACTAM SOD 4.5 GM in D5W MINI-BAG PLUS 50 ML IV ONE (06:50)
[2020-12-27] MEDS ORDERED: NS 1,980 ML in IV 1 EA IV ONE (07:05)
[2020-12-27] MEDS ORDERED: HYDROCORTISONE 100 MG/2 ML VIAL (J1720 PER 1) IV ONE (07:20)
--- NOTE | 2020-12-27 07:55 | REPVR ---
PROCEDURE INFORMATION: Exam: CT Head Without Contrast Exam date and time: 12/27/2020 5:51 AM Age: 65 years old Clinical indication: Injury or trauma; Fall; Blunt trauma (contusions or hematomas) TECHNIQUE: Imaging protocol: Computed tomography of the head without contrast. Radiation optimization: All CT scans at this facility use at least one of these dose optimization techniques: automated exposure control; mA and/or kV adjustment per patient size (includes targeted exams where dose is matched to clinical indication); or iterative reconstruction. COMPARISON: MRI-Brain W/O FOLL BY WITH 11/25/2020 7:33 AM FINDINGS: Brain: As before, there are moderate diffuse involutional changes in the brain with mild white matter hypodensity suggestive of small vessel disease. Focal encephalomalacia again suggested in the right frontal lobe as before. No acute hemorrhage or acute territorial infarct. Stable sellar mass better evaluated on the recent MRI of the brain. This would be consistent with the given history of a history of a pituitary adenoma. Cerebral ventricles: No ventriculomegaly. Paranasal sinuses: Visualized sinuses are unremarkable. No fluid levels. Mastoid air cells: Visualized mastoid air cells are well aerated. Bones/joints: Unremarkable. No acute fracture. Soft tissues: Unremarkable. IMPRESSION: Chronic appearing changes in the brain without acute intracranial abnormality. If concern persists MRI can be performed. Electronically signed by: Ge Luo On 12/27/2020 07:55:00 AM
[2020-12-27] MEDS: ADVAIR HFA 230/21MCG INHALER INH SCH ×2 (08:00→20:30)
--- NOTE | 2020-12-27 08:00 | REPVR ---
PROCEDURE INFORMATION: Exam: CT Cervical Spine Without Contrast Exam date and time: 12/27/2020 5:51 AM Age: 65 years old Clinical indication: Injury or trauma; Fall; Blunt trauma TECHNIQUE: Imaging protocol: Computed tomography images of the cervical spine without contrast. Radiation optimization: All CT scans at this facility use at least one of these dose optimization techniques: automated exposure control; mA and/or kV adjustment per patient size (includes targeted exams where dose is matched to clinical indication); or iterative reconstruction. COMPARISON: PT PET/CT Skull/mid thigh 12/07/2020 10:16 AM FINDINGS: Vertebrae: A scoliosis and moderate multilevel degenerative changes are again appreciated. Grade 1 anterolisthesis of C4 on C5 is most likely degenerative. No acute fracture line, high-grade compression deformity, or worrisome malalignment. Disc spaces: Mild central stenosis at C5-C6 and C6-C7. Multilevel foraminal encroachment. Epidural space: No epidural fluid. Soft tissues: Unremarkable. Submandibular/Parotid glands: Calcifications in the left parotid gland possibly related to remote infectious or inflammatory etiologies. Prevertebral Space: No prevertebral soft tissue swelling. Thyroid: No focal thyroid lesions. Esophagus: Patulous esophagus. Lymph nodes: No lymphadenopathy in the neck. Vasculature: Carotid vascular calcifications can be followed with ultrasound. Lungs: Emphysematous changes in the included lungs with interstitial thickening and apical pleural thickening. IMPRESSION: 1. Degenerative changes without acute fracture. 2. Carotid vascular calcifications that can be followed with ultrasound. Electronically signed by: Ge Luo On 12/27/2020 07:59:50 AM
[2020-12-27] MEDS ORDERED: VANCOMYCIN HCL 1,000 MG, VIAL MATE ADAPTER 1 EACH in NS 250 ML IV SCH (08:35)
--- NOTE | 2020-12-27 08:40 | REPVR ---
PROCEDURE INFORMATION: Exam: XR Chest Exam date and time: 12/27/2020 6:45 AM Age: 65 years old Clinical indication: Other: Syncope; Additional info: Syncope/near-syncope TECHNIQUE: Imaging protocol: XR of the chest. Views: 1 view. COMPARISON: Chest film and CT chest of 12/14/2020. FINDINGS: Tubes, catheters and devices: Monitoring leads over the chest and abdomen. Lungs: Improved aeration of the left lung with residual densities remaining at the left hilar level and in the left base. Interstitial markings are stable on the right and are also prominent on the left although the left lung was nearly completely opacified on the prior. Pleural spaces: No large effusion or pneumothorax. Bilateral apical pleural thickening. Heart/Mediastinum: See "Soft tissues" finding. Bones/joints: Degenerative changes without acute fracture. Soft tissues: Prominent soft tissue at the level of the AP window. I think there was potential mass or lymphadenopathy here on the prior noncontrast CT. Follow-up recommended. IMPRESSION: 1. Improved appearance of the chest. 2. Residual densities in the left lung requiring follow-up. 3. AP window soft tissue prominence, better evaluated on the recent CT scan. Electronically signed by: Ge Luo On 12/27/2020 08:39:53 AM
[2020-12-27] MEDS ORDERED: NS 1,000 ML IV SCH (08:45)
[2020-12-27] MEDS ORDERED: ADVA230A INH (08:50)
[2020-12-27] MEDS ORDERED: MODA100T13 PO (08:50)
[2020-12-27] MEDS ORDERED: ONDA-83 PO (08:54)
[2020-12-27] MEDS ORDERED: OXYC-517 PO (08:54)
[2020-12-27] MEDS ORDERED: HOME MED LIST COMPLETE! XX SCH (08:55)
[2020-12-27] MEDS ORDERED: OMEPRAZOLE 20 MG CAP PO SCH (09:00)
[2020-12-27] MEDS ORDERED: FILGRASTIM 480 MCG/0.8 ML SYRINGE (J1442) SC SCH (09:00)
[2020-12-27] MEDS ORDERED: MODAFINIL 100 MG TABLET PO PRN (09:05)
[2020-12-27] MEDS ORDERED: ALBUTEROL 90 MCG/ACT 8GM HFA INHALER INH PRN (09:05)
[2020-12-27 10:00] VITALS: BP 114/63
[2020-12-27] MEDS ORDERED: VANCOMYCIN HCL 1,000 MG, VIAL MATE ADAPTER 1 EACH in NS 250 ML IV ONE (10:00)
[2020-12-27 10:30] LABS: AMPHETAMINES LEVEL URINE NEGATIVE (NEGATIVE); BARBITURATES URINE NEGATIVE (NEGATIVE); BENZODIAZEPINES URINE NEGATIVE (NEGATIVE); CANNABINOIDS URINE NEGATIVE (NEGATIVE); COCAINE METABOLITE URINE NEGATIVE (NEGATIVE); METHADONE URINE NEGATIVE (NEGATIVE); OPIATES URINE NEGATIVE (NEGATIVE); PHENCYCLIDINE URINE NEGATIVE (NEGATIVE)
[2020-12-27] MEDS ORDERED: VANCOMYCIN HCL 750 MG, VIAL MATE ADAPTER 1 EACH in NS 250 ML IV ONE (11:00)
[2020-12-27] MEDS: ATORVASTATIN 20 MG TAB PO SCH (11:35)
[2020-12-27] MEDS: GABAPENTIN 300 MG CAP PO SCH ×3 (11:35→20:01)
[2020-12-27] MEDS: ASPIRIN 81MG ENTERIC TABLET PO SCH (11:36)
[2020-12-27 12:00] VITALS: BP 114/63
--- NOTE | 2020-12-27 12:09 | HPEPDOC ---
General Date of Admission Dec 27, 2020 at 08:35 Date of Service: Dec 27, 2020 Chief Complaint The patient is a 65-year-old female admitted with a reason for visit of Neutropenic Fever,Sepsis. Source: Patient, Family History of Present Illness Mrs. Coburn is a 65 year old female with adrenal insufficiency chronically on prednisone 5mg daily and squamous cell carcinoma who is here with a fever and syncopal event. She recently had her first chemotherapy and radiation last Mon. She initially had chills, but that started to develop a fever. She has nausea and vomiting. Yesterday she started to complain of a tooth ache. Today, she was walking to the bathroom and passed out. She remember falling and her left side hitting the counter. She was brought to the ED for evaluation. While in the ED, she was very lethargic and provided most of the story. While in the ED she had a temperature of 100.7 and blood pressure of 85/54. She was given stress dose steroids and 30ml/kg of IVF. She was found to have neutropenia with a WBC 0.7 and an ANC of 0. I reach out to oncology supervisor fabrication who is her oncologist, Dr. Randall. He agrees with broad spectrum antibiotics and recommends Neupogen. He will see the patient tomorrow. Patient will be admitted for neutropenic fever. Home Medications Scheduled Amlodipine Besylate (Amlodipine Besylate) 5 Mg Tablet, 5 MG PO DAILY, (Reported) Aspirin (Ecotrin) 81 Mg Tab, 81 MG PO DAILY, (Reported) Atorvastatin Calcium (Atorvastatin Calcium) 80 Mg Tablet, 80 MG PO DAILY, (Reported) Fluticasone Propion/Salmeterol (Advair Hfa 230-21 Mcg Inhaler) 12 Gm Hfa.aer.ad, 2 PUFF INH BID, (Reported) Gabapentin (Gabapentin) 300 Mg Cap, 300 MG PO TID, (Reported) Irbesartan (Irbesartan) 150 Mg Tablet, 150 MG PO DAILY, (Reported) Levothyroxine Sodium (Levothyroxine Sodium) 75 Mcg Tablet, 75 MCG PO DAILY, (Reported) Metoprolol Succinate (Metoprolol Succinate) 50 Mg Tab.er.24h, 50 MG PO DAILY, (Reported) Omeprazole (Omeprazole) 20 Mg Capsule.dr, 20 MG PO DAILY, (Reported) Prednisone (Prednisone) 10 Mg Tablet, 10 MG PO TAPER, (Reported) 40MG FOR 4 DAYS, 30MG FOR 4 DAYS, 20MG FOR 4 DAYS, 10MG FOR 8 DAYS: STARTED ON 12/03/20 Scheduled PRN Albuterol Sulfate (Proair Hfa) 8.5 Gm Hfa.aer.ad, 2 PUFF INH Q4H PRN for SHORTNESS OF BREATH, (Reported) Modafinil (Modafinil) 100 Mg Tablet, 100 MG PO DAILY PRN for NARCOLEPSY, (Reported) Ondansetron HCl (Ondansetron HCl) 4 Mg Tablet, 4 MG PO Q6H PRN for NAUSEA OR VOMITING, (Reported) Oxycodone HCl (Oxycodone HCl) 5 Mg Tablet, 5 MG PO 6XD PRN for PAIN LEVEL 5-10, (Reported) Allergies Coded Allergies: Sulfa (Sulfonamide Antibiotics) (Verified Allergy, Mild, Rash, 12/14/20) codeine (Verified Adverse Reaction, Mild, N/V, 02/27/19) morphine (Verified Adverse Reaction, Mild, N/V, 02/27/19) oxycodone (Verified Adverse Reaction, Mild, N/V, 02/27/19) Past Medical History Medical History 1. Squamous cell carcinoma receiving chemotherapy and radiation 2. Pituitary tumor s/p surgery x2 and radiation x1 3. 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 Right lung cancer s/p VATs 5. Hypertension 6. GERD 7. Adrenal insufficiency on chronic prednisone 8. Occipital neuralgia 9. COPD 10. Seizures s/p brain surgery 11. CAD 12. Hyperlipidemia 13. Hypothyroidism Surgical History 1. Pituitary surgery in 2003 2. Right lung biopsy complicated with collapsed lung and chest tube 06/2012 3. VATS for right lung 07/2012 4. Colonoscopy in 2016 Family History Father: , history of valve replacement and CAD Mother: , history of cancer behind eye, bilateral breast cancer, ovarian cancer, DM, and brain tumor Social History * Smoker: non-smoker Alcohol: Denies Drugs: denies A-FIB/CHADSVASC A-FIB History Current/History of A-Fib/PAF?: No Review of Systems Constitutional: Reports: Chills, Fever Eyes: Reports: Vision change (blurriness) ENT: Reports: Sore Throat Skin: Reports: Rash (On chest after radiation) Pulmonary: Reports: Dyspnea, Cough Cardiovascular: Reports: Chest Pain (constant, dull) Gastrointestinal: Reports: Nausea, Vomiting; Denies: Abdominal Pain, Diarrhea Genitourinary: Denies: Dysuria Hematologic: Reports: Bruising (On right arm ) Psych: Reports: Anxiety Physical Examination General Exam: Positive: Alert, Cooperative Eye Exam: Positive: EOMI, Other Eye Symptoms (subconjuctival hemorrhage in left eye on lateral aspect) ENT Exam: Positive: Tongue Midline Chest Exam: Positive: Diminished Heart Exam: Positive: Rate Normal, Regular Rhythm Abdomen Exam: Positive: Normal bowel sounds, Soft; Negative: Tenderness Extremity Exam: Negative: Edema Neuro Exam: Positive: Normal Speech, Cranial Nerves 3-12 NL Psych Exam: Positive: Other (Sleepy); Negative: Oriented x 3 (Did not know day of week) Vital Signs Vital Signs Date Time Temp Pulse Resp B/P (MAP) Pulse Ox O2 Delivery O2 Flow Rate FiO2 12/27/20 10:45 81 119/59 (79) 96 12/27/20 10:00 97.7 20 Nasal Cannula 2.0 Laboratory Data Labs 24H Laboratory Tests 2 12/27/20 05:52: Immature Granulocyte % (Auto) 3.0, Neutrophils (%) (Auto) 3.0L, Lymphocytes (%) (Auto) 73.1H, Monocytes (%) (Auto) 19.4H, Eosinophils (%) (Auto) 0.0, Basophils (%) (Auto) 1.5H, Neutrophils # (Auto) 0.0L, Lymphocytes # (Auto) 0.5L, Monocytes # (Auto) 0.1, Eosinophils # (Auto) 0.0, Basophils # (Auto) 0.0, Nucleated Red Blood Cells % (auto) 0.0, Immature Platelet Fraction 5.0, Anion Gap 6L, Glomerular Filtration Rate > 60.0, Lactic Acid Level 1.3, Calcium Level 7.7L, Total Creatine Kinase 23L, Creatine Kinase MB < 1.0, Creatine Kinase MB Relative Index 4.35H, Troponin I < 0.02, Thyroid Stimulating Hormone (TSH) 0.092L, Urine Opiates Screen NEGATIVE, Urine Methadone Screen NEGATIVE, Urine Barbiturates Screen NEGATIVE, Urine Phencyclidine Screen NEGATIVE, Urine Amphetamines Screen NEGATIVE, Urine Benzodiazepines Screen NEGATIVE, Urine Cocaine Metabolite Screen NEGATIVE, Urine Cannabinoids Screen NEGATIVE, Ethyl Alcohol Level < 0.003 12/27/20 05:56: Blood Gas Bicarbonate Standard 27.4, Venous Blood pH 7.434H, Venous Blood Partial Pressure CO2 42.6, Venous Blood Partial Pressure O2 73.4H, Venous Blood Total Carbon Dioxide 29.2H, Venous Blood HCO3 27.9H, Venous Blood Oxygen Saturation 95.7H, Venous Blood Base Excess 3.3H 12/27/20 06:00: Bedside Glucose (Misc Panel) 97 12/27/20 09:34: Urine Color STRAW, Urine Appearance CLEAR, Urine pH 6.0, Urine Specific [place] 1.009, Urine Protein 1+H, Urine Glucose (UA) NEGATIVE, Urine Ketones NEGATIVE, Urine Blood NEGATIVE, Urine Nitrite NEGATIVE, Urine Bilirubin NEGATIVE, Urine Urobilinogen 0.2, Urine Leukocyte Esterase NEGATIVE, Urine WBC (Auto) 2, Urine RBC (Auto) 2, Urine Hyaline Casts (Auto) 0, Urine Bacteria (Auto) NEGATIVE, Urine Squamous Epithelial Cells 1, Urine Sperm (Auto) CBC/BMP Laboratory Tests 12/27/20 05:52 Microbiology Microbiology 12/27/20 Respiratory Virus Panel (PCR) ([facility]) - Final, Complete 12/27/20 Blood Culture, Received Pending 12/27/20 Blood Culture, Received Pending Assessment/Plan Mrs. Coburn is a 65 year old female with adrenal insufficiency chronically on prednisone 5mg daily and squamous cell carcinoma who is here with a fever and syncopal event. Post chemotherapy, she most likely became neutropenic making her susceptible to infection. She may have an oral infection as she was complaining or oral pain. Patient will be started on Zosyn and Vancomycin. Due to infection and her adrenal insufficiency, she may not be able to amount an adequate stress response. Stress dose steroids have been started. Plan / VTE VTE Prophylaxis Ordered?: Yes Plan Plan 1. Neutropenic fever -Recently received chemotherapy on 12/25 -ANC of 0 with fever of 100.7 -Suspect source to be oral -Patient on Zosyn and Vancomycin day 1 -Spoke with oncology, recommended Neupogen -Patient will be on a neutropenic diet (no raw foods) and be on reverse isola tion 2. Sepsis -Patient was hypotensive, lethargic, and had a fever -Suspected source is oral -Patient was given 30mL/kg of fluid. Continue IVF afterwards -Zosyn and Vancomycin day 1 -Blood culture pending 3. Adrenal insufficiency -Normally on Prednisone 5mg daily -Due to severe illness, will put patient on stress dose steroids -Monitor blood pressure 4. COPD -Stable, no wheezing -Continue Advair -Continue albuterol as needed 5. Hypothyroidism -Continue levothyroxine 6. CAD -Continue aspirin and atorvastatin -Hold irbesartan and metoprolol succinate due to hypotension 7. Hypertension -Hold amlodipine, irbesartan, and metoprolol succinate due to hypotension 8. Seizures -Continue gabapentin 9. DVT ppx -SCD and TEDs Disposition: Pending clinical improvement and improvement in neuropils. RAUL IRVING DO Dec 27, 2020 12:09
[2020-12-27] MEDS: HYDROCORTISONE 100 MG/2 ML VIAL (J1720 PER 1) IV SCH ×2 (12:55→18:41)
[2020-12-27] MEDS: PIPERACILLIN/TAZOBACTAM SOD 4.5 GM in D5W MINI-BAG PLUS 50 ML IV SCH ×2 (14:03→18:41)
[2020-12-27] MEDS: ONDANSETRON 4MG/2ML VIAL IV PRN (15:40)
[2020-12-27] MEDS: LEVOTHYROXINE 75MCG TABLET (0.075MG) PO SCH (15:40)
[2020-12-27 16:00] VITALS: BP 110/62
[2020-12-27 19:49] VITALS: BP 123/64
[2020-12-27 20:00] VITALS: BP 123/64
[2020-12-27] MEDS: ACETAMINOPHEN TAB 650MG DOSE (2X325MG) PO PRN (20:02)
[2020-12-28] VITALS: BP 115/63
[2020-12-28] MEDS: HYDROCORTISONE 100 MG/2 ML VIAL (J1720 PER 1) IV SCH ×2 (00:10→07:43)
[2020-12-28] MEDS: VANCOMYCIN HCL 1,000 MG, VIAL MATE ADAPTER 1 EACH in NS 250 ML IV SCH ×2 (00:11→13:07)
[2020-12-28] MEDS: ACETAMINOPHEN TAB 650MG DOSE (2X325MG) PO PRN ×2 (02:01→15:56)
[2020-12-28] MEDS: PIPERACILLIN/TAZOBACTAM SOD 4.5 GM in D5W MINI-BAG PLUS 50 ML IV SCH ×4 (02:02→21:44)
[2020-12-28 04:00] VITALS: BP 138/77
[2020-12-28] MEDS: LEVOTHYROXINE 75MCG TABLET (0.075MG) PO SCH (04:25)
[2020-12-28] MEDS: ONDANSETRON 4MG/2ML VIAL IV PRN ×3 (04:30→22:00)
[2020-12-28] MEDS: oxyCODONE 5MG TAB PO PRN ×2 (04:31→17:32)
[2020-12-28 05:19] LABS: BASO % 1.3 % (0.0-1.0); HEMATOCRIT 30.3 % (36.0-47.0); HEMOGLOBIN 9.8 g/dl (12.0-15.5); LYMPH # 0.4 10^3/uL (1.5-5.0); LYMPH % 18.7 % (24.0-44.0); MEAN CORPUSCULAR HEMOGLOBIN 30.6 pg (27.0-33.0); MEAN CORPUSCULAR HGB CONC 32.3 g/dl (32.0-36.5); MEAN CORPUSCULAR VOLUME 94.7 fl (80.0-96.0); MONO # 0.5 10^3/uL (0.0-0.8); MONO % 20.9 % (2.0-8.0); NEUTROPHILS # 1.3 10^3/uL (1.5-8.5); NEUTROPHILS % 58.2 % (36.0-66.0); WHITE BLOOD COUNT 2.3 10^3/uL (4.0-10.0)
[2020-12-28 05:21] LABS: PLATELET COUNT, AUTOMATED 74 10^3/uL (150-450)
[2020-12-28 05:33] LABS: BLOOD UREA NITROGEN 8 MG/DL (7-18); CALCIUM LEVEL 7.4 MG/DL (8.8-10.2); CARBON DIOXIDE LEVEL 25 MEQ/L (21-32); CHLORIDE LEVEL 108 MEQ/L (98-107); CREATININE FOR GFR 0.72 MG/DL (0.55-1.30); GLOMERULAR FILTRATION RATE > 60.0 (>45); GLUCOSE, FASTING 108 MG/DL (70-100); POTASSIUM SERUM 3.4 MEQ/L (3.5-5.1); SODIUM LEVEL 141 MEQ/L (136-145)
[2020-12-28] MEDS: SUCRALFATE SUSP 1GM/10ML UD PO SCH ×4 (07:30→21:44)
[2020-12-28 07:49] VITALS: BP 131/76
[2020-12-28] MEDS ORDERED: POTASSIUM CHLORIDE 10 MEQ SR TABLET PO ONE (08:00)
[2020-12-28] MEDS: ADVAIR HFA 230/21MCG INHALER INH SCH ×2 (08:00→19:56)
[2020-12-28 08:12] LABS: MAGNESIUM LEVEL 1.6 MG/DL (1.8-2.4)
[2020-12-28] MEDS: OMEPRAZOLE 20 MG CAP PO SCH (09:00)
[2020-12-28] MEDS: ASPIRIN 81MG ENTERIC TABLET PO SCH (09:00)
[2020-12-28] MEDS: ATORVASTATIN 20 MG TAB PO SCH (09:00)
[2020-12-28] MEDS: GABAPENTIN 300 MG CAP PO SCH ×3 (09:00→21:44)
[2020-12-28] MEDS ORDERED: PROMETHAZINE INJ 25 MG/ML VIAL (J2550) IV PRN (09:25)
[2020-12-28] MEDS ORDERED: LORazepam 2 MG/ML VIAL IV PRN (09:25)
--- NOTE | 2020-12-28 11:35 | IPNPDOC ---
Subjective Date Seen The patient was seen on 12/28/20. Subjective Chief Complaint/HPI Mrs. Coburn is a 65 year old female with adrenal insufficiency chronically on prednisone 5mg daily and squamous cell carcinoma who is here with a fever and syncopal event. This morning, she was not feeling well. She has a persistent moving/dizzy sensation that worse when she moves. Denies chest pain or dyspnea. Physical therapy worked with her, and they found her to have bilateral otoliths in the anterior semi-circular canal. Physical therapy working on improving vertigo. Otherwise, will send down to MRI for central causes of vertigo. I spoke with oncology, Dr. Randall. ANC now 1.3. Dr. Randall still recommends continuing Neupogen for today and tomorrow. Objective Physical Examination General Exam: Positive: Alert, Cooperative Eye Exam: Positive: EOMI, Other Eye Symptoms (subconjuctival hemorrhage in left eye on lateral aspect) ENT Exam: Positive: Tongue Midline Chest Exam: Positive: Diminished Heart Exam: Positive: Rate Normal, Regular Rhythm Abdomen Exam: Positive: Normal bowel sounds, Soft; Negative: Tenderness Extremity Exam: Negative: Edema Neuro Exam: Positive: Normal Speech, Cranial Nerves 3-12 NL Assessment /Plan Assessment Mrs. Coburn is a 65 year old female with adrenal insufficiency chronically on prednisone 5mg daily and squamous cell carcinoma who is here with a fever and syncopal event. Post chemotherapy, she most likely became neutropenic making her susceptible to infection. She may have an oral infection as she was complaining or oral pain. Patient will be started on Zosyn and Vancomycin. Due to infection and her adrenal insufficiency, she may not be able to amount an adequate stress response. Stress dose steroids have been started. Now that blood pressure improved, weaning off stress dose steroids. Plan/VTE VTE Prophylaxis Ordered?: Yes Plan 1. Neutropenic fever -Recently received chemotherapy on 12/25/20. ANC of 0 with fever of 100.7 -Suspect source to be oral -Patient on Zosyn and Vancomycin day 2 -Will continue Neupogen until tomorrow -Patient will be on a neutropenic diet (no raw foods) and be on reverse isolation -Improved 2. Sepsis -Patient was hypotensive, lethargic, and had a fever -Suspected source is oral -Patient was given 30mL/kg of fluid. -Zosyn and Vancomycin day 2 -Blood culture pending 3. Adrenal insufficiency -Normally on Prednisone 5mg daily -Due to severe illness, will put patient on stress dose steroids. Now improved, weaning off stress dose steroids -Monitor blood pressure 4. COPD -Stable, no wheezing -Continue Advair -Continue albuterol as needed 5. Hypothyroidism -Continue levothyroxine 6. CAD -Continue aspirin and atorvastatin -Hold irbesartan and metoprolol succinate due to hypotension 7. Hypertension -Hold amlodipine, irbesartan, and metoprolol succinate due to hypotension 8. Seizures -Continue gabapentin 9. DVT ppx -SCD and TEDs Disposition: Pending improvement in vertigo. Pending results of MRI and MRSA swab. On discharge, patient may be switched to oral medication VS, I&O, 24H, [facility] Vital Signs/I&O Vital Signs Date Time Temp Pulse Resp B/P (MAP) Pulse Ox O2 Delivery O2 Flow Rate FiO2 12/28/20 07:49 97.8 89 20 131/76 (94) 92 Room Air 12/28/20 05:01 2.0 I&O- Last 24 Hours up to 6 AM 12/28/20 06:00 Intake Total 2970 ml Output Total 0 ml Balance 2970 ml Laboratory Data 24H LABS Laboratory Tests 2 12/27/20 12:19: Troponin I < 0.02 12/28/20 04:51: Immature Granulocyte % (Auto) 0.9, Neutrophils (%) (Auto) 58.2, Lymphocytes (%) (Auto) 18.7L, Monocytes (%) (Auto) 20.9H, Eosinophils (%) (Auto) 0.0, Basophils (%) (Auto) 1.3H, Neutrophils # (Auto) 1.3L, Lymphocytes # (Auto) 0.4L, Monocytes # (Auto) 0.5, Eosinophils # (Auto) 0.0, Basophils # (Auto) 0.0, Nucleated Red Blood Cells % (auto) 1.3H, Anion Gap 8, Glomerular Filtration Rate > 60.0, Calcium Level 7.4L, Magnesium Level 1.6L 12/28/20 11:09: CBC/BMP Laboratory Tests 12/28/20 04:51 Microbiology Microbiology 12/27/20 Respiratory Virus Panel (PCR) ([facility]) - Final, Complete 12/27/20 Blood Culture - Preliminary, Resulted No growth after 24 hours . All specim... 12/27/20 Blood Culture - Preliminary, Resulted No growth after 24 hours . All specim... RAUL IRVING DO Dec 28, 2020 11:35
[2020-12-28 12:00] VITALS: BP 139/71
[2020-12-28 15:42] VITALS: BP 128/70
[2020-12-28] MEDS: FILGRASTIM 480 MCG/0.8 ML SYRINGE (J1442) SC SCH (16:21)
--- NOTE | 2020-12-28 18:12 | IPNPDOC ---
Date Seen The patient was seen on 12/28/20. Progress Note SUBJECTIVE: Ms. Nasrin Coburn is admitted 2 days ago through emergency room. She has small cell lung cancer and has been getting radiation and received 3 days of chemotherapy with carboplatin etoposide and atezulizumab. Patient was found to be pancytopenic and was started with Zosyn, vancomycin and Neupogen. She was started on Neupogen 40 mcg subcu daily. Today she is afebrile and is feeling much improved. Her blood count has shown good response to Neupogen and has, from 0.7-2.3 with absolute neutrophil count of 1.3. Patient has been on reverse isolation and does not have to be on reverse isolation anymore. She has been receiving radiation and radiation has been given today also. 5 more radiation is to go. She is feeling better although still feels dizzy when she stands up. She is unable to eat fully because of anorexia and still on soft diet. Chest x-ray from 27 December 2020 showed improved appearance of the chest with residual densities in the left hilar area and the left base. Patient general condition is better and she is able to breathe better. OBJECTIVE PHYSICAL EXAMINATION: VITAL SIGNS: Please see below. GENERAL: A pleasant female in no acute distress. She is pale looking but no jaundice or cyanosis no clubbing or koilonychia HEENT: WNL EOMI oral cavity clear without mucositis or thrush CARDIOVASCULAR: Cardiac RRR normal S1-S2. RESPIRATORY: Scattered crackles in the left chest right chest clear. ABDOMINAL: Abdomen soft bowel sounds present hepatosplenomegaly EXTREMITIES: Normal without pedal edema NEUROLOGICAL: No gross sensory or motor deficit PSYCHOLOGICAL: Hopeful and not depressed LABORATORY DATA, IMAGING STUDIES, MICROBIOLOGY: Please see below. ASSESSMENT AND PLAN: This is a 65-year-old white female with extensive small cell lung cancer and is getting concomitant chemoradiation. She was admitted with high-grade fever and neutropenia. She has been on Zosyn and vancomycin. She has shown improvement. She needs to stay on Neupogen for 2 more days and once absolute neutrophil count is more than 1500 she may stop Neupogen at that time. Patient need to continue antibiotic although her antibiotic can be switched to oral antibiotics. Patient will keep getting radiation while inpatient and then if she goes home she will complete her rest of 5 more radiations. She has responded very well to concomitant chemoradiation and x-ray is showing much improvement. We will follow her up as outpatient.. VS, I&O, 24H, Fishbone Vital Signs/I&O Vital Signs Date Time Temp Pulse Resp B/P (MAP) Pulse Ox O2 Delivery O2 Flow Rate FiO2 12/28/20 17:32 20 12/28/20 16:00 2.0 12/28/20 15:42 98.0 89 128/70 (89) 91 Nasal Cannula I&O- Last 24 Hours up to 6 AM 12/28/20 06:00 Intake Total 2970 ml Output Total 0 ml Balance 2970 ml Laboratory Data 24H LABS Laboratory Tests 2 12/28/20 04:51: Immature Granulocyte % (Auto) 0.9, Neutrophils (%) (Auto) 58.2, Lymphocytes (%) (Auto) 18.7L, Monocytes (%) (Auto) 20.9H, Eosinophils (%) (Auto) 0.0, Basophils (%) (Auto) 1.3H, Neutrophils # (Auto) 1.3L, Lymphocytes # (Auto) 0.4L, Monocytes # (Auto) 0.5, Eosinophils # (Auto) 0.0, Basophils # (Auto) 0.0, Nucleated Red Blood Cells % (auto) 1.3H, Anion Gap 8, Glomerular Filtration Rate > 60.0, Calcium Level 7.4L, Magnesium Level 1.6L 12/28/20 11:09: Methicillin-Resist S.aureus DNA PCR NOT DETECTED CBC/BMP Laboratory Tests 12/28/20 04:51 Microbiology Microbiology 12/27/20 Respiratory Virus Panel (PCR) ([facility]YSTAL) - Final, Complete 12/27/20 Blood Culture - Preliminary, Resulted No growth after 24 hours . All specim... 12/27/20 Blood Culture - Preliminary, Resulted No growth after 24 hours . All specim... FENG CARRERA MD Dec 28, 2020 18:12
--- NOTE | 2020-12-28 19:39 | ECGEPIP ---
[facility] - ED Test Date: 2020-12-27 Pat Name: MAX MARTI Department: Room: - Gender: Female [employer]: : [id number] Requested By: JACKIE Goodwin Order Number: [id number] Reading MD: Loulou Grimm Measurements Intervals [place] Rate: 86 P: 66 PA: 144 QRS: 17 QRSD: 66 T: 45 QT: 350 QTc: 418 Interpretive Statements Normal sinus rhythm Septal infarct , age undetermined NSTTW abnormalities low voltage limb similar 12/14/20 Electronically Signed on 12-28-2020 19:39:09 EDT by Loulou Grimm
[2020-12-28 20:00] VITALS: BP 130/77
[2020-12-28] MEDS ORDERED: HYDROCORTISONE 100 MG/2 ML VIAL (J1720 PER 1) IV SCH (20:00)
--- NOTE | 2020-12-28 20:40 | REPVR ---
PROCEDURE INFORMATION: Exam: MR Head Without Contrast Exam date and time: 12/28/2020 7:17 PM Age: 65 years old Clinical indication: Dizziness; Prior surgery; Surgery date: 6+ months; Surgery type: Partial resection of pituitary adenoma. Lung CA; Additional info: Persistant vertigo, recent fall/trauma TECHNIQUE: Imaging protocol: MR of the head without contrast. COMPARISON: CT Head without contrast 12/27/2020 5:49 AM FINDINGS: Brain: Punctate foci of restricted diffusion within the superior left frontal lobe. Chronic encephalomalacia changes in the right frontal lobe. Redemonstration of approximately 1.5 cm soft tissue mass within the right aspect of the sella partially surrounding the cavernous right ICA, of similar appearance to prior MRI brain. Nonspecific T2/FLAIR hyperintensities of the periventricular and deep subcortical white matter, most likely secondary to chronic small vessel ischemic change. No intracranial hemorrhage or extra-axial fluid collection. No midline shift. Cerebral ventricles: No ventriculomegaly. Bones/joints: Unremarkable. Orbital cavity: Unremarkable. Soft tissues: Unremarkable. IMPRESSION: 1. Punctate foci of restricted diffusion within the superior left frontal lobe, to which tiny acute infarcts cannot be excluded. 2. Other unchanged chronic findings, as above. Electronically signed by: Mathew Osborne On 12/28/2020 20:40:16 PM
[2020-12-28] MEDS: predniSONE 5 MG TAB PO SCH (21:44)
[2020-12-29] VITALS: BP 119/72
[2020-12-29] MEDS: PIPERACILLIN/TAZOBACTAM SOD 4.5 GM in D5W MINI-BAG PLUS 50 ML IV SCH ×3 (01:18→12:00)
[2020-12-29 04:00] VITALS: BP 120/70
[2020-12-29] MEDS: ONDANSETRON 4MG/2ML VIAL IV PRN ×2 (04:49→18:36)
[2020-12-29] MEDS: LEVOTHYROXINE 75MCG TABLET (0.075MG) PO SCH (04:49)
[2020-12-29] MEDS: oxyCODONE 5MG TAB PO PRN ×2 (04:50→18:32)
[2020-12-29] MEDS: ACETAMINOPHEN TAB 650MG DOSE (2X325MG) PO PRN ×2 (04:51→16:26)
[2020-12-29] MEDS: SUCRALFATE SUSP 1GM/10ML UD PO SCH ×4 (04:51→21:00)
[2020-12-29 05:41] LABS: HEMATOCRIT 28.4 % (36.0-47.0); HEMOGLOBIN 9.3 g/dl (12.0-15.5); MEAN CORPUSCULAR HEMOGLOBIN 30.6 pg (27.0-33.0); MEAN CORPUSCULAR HGB CONC 32.7 g/dl (32.0-36.5); MEAN CORPUSCULAR VOLUME 93.4 fl (80.0-96.0); RED BLOOD COUNT 3.04 10^6/uL (4.00-5.40); WHITE BLOOD COUNT 10.2 10^3/uL (4.0-10.0)
[2020-12-29 05:42] LABS: BASO # 0.1 10^3/uL (0.0-0.2); BASO % 0.8 % (0.0-1.0); LYMPH # 0.9 10^3/uL (1.5-5.0); LYMPH % 8.6 % (24.0-44.0); MONO # 1.1 10^3/uL (0.0-0.8); MONO % 11.1 % (2.0-8.0); NEUTROPHILS # 7.1 10^3/uL (1.5-8.5); NEUTROPHILS % 69.8 % (36.0-66.0); PLATELET COUNT, AUTOMATED 102 10^3/uL (150-450)
[2020-12-29 06:00] LABS: BLOOD UREA NITROGEN 9 MG/DL (7-18); CALCIUM LEVEL 7.6 MG/DL (8.8-10.2); CARBON DIOXIDE LEVEL 26 MEQ/L (21-32); CHLORIDE LEVEL 110 MEQ/L (98-107); CREATININE FOR GFR 0.82 MG/DL (0.55-1.30); GLOMERULAR FILTRATION RATE > 60.0 (>45); GLUCOSE, FASTING 93 MG/DL (70-100); SODIUM LEVEL 147 MEQ/L (136-145)
[2020-12-29 07:45] VITALS: BP 132/74
[2020-12-29] MEDS: ADVAIR HFA 230/21MCG INHALER INH SCH ×2 (07:49→21:10)
[2020-12-29] MEDS: predniSONE 5 MG TAB PO SCH (08:21)
[2020-12-29] MEDS: ATORVASTATIN 20 MG TAB PO SCH (08:21)
[2020-12-29] MEDS: GABAPENTIN 300 MG CAP PO SCH ×3 (08:21→21:06)
[2020-12-29] MEDS: FILGRASTIM 480 MCG/0.8 ML SYRINGE (J1442) SC SCH (08:21)
[2020-12-29] MEDS: OMEPRAZOLE 20 MG CAP PO SCH (08:21)
[2020-12-29] MEDS: ASPIRIN 81MG ENTERIC TABLET PO SCH (08:22)
[2020-12-29] MEDS: MECLIZINE 25 MG TABLET PO PRN (08:53)
[2020-12-29] MEDS ORDERED: POTASSIUM CHLORIDE 10 MEQ SR TABLET PO SCH (09:00)
[2020-12-29] MEDS ORDERED: MAGNESIUM OXIDE 400MG TAB (MAG-OX) PO ONE (10:45)
--- NOTE | 2020-12-29 10:47 | IPNPDOC ---
Text Note Date of Service The patient was seen on 12/29/20. NOTE Subjective Pt was seen at bedside today and c/o nausea and dizziness that is exacerbated by head turning, and she admits to vomiting last night. Pt has mild pain in her L shoulder, and has radiation therapy for the apical lung tumor in that area scheduled at 1:30pm today. Denies REYES, SOB, chest pain, dysphagia, abdominal pain, dysuria, or paresthesias. Objective Gen: Pt is in mild discomfort 2/2 dizziness, and prefers sitting upright and not turning her head. Psych: A+Ox3 HEENT: no cervical lymphadenopathy, posterior pharynx normal, no bruits. RESP: CTA b/l, no rhonchi, crackles, or wheeze. CVS: RRR, no murmur, gallop, or rub. Distal pulses 2/4 b/l. ABD: soft, non-tender, non-distended, normoactive bowel sounds. MSK: Plantarflexion strength 5/5 b/l. SKIN: Diffuse ecchymoses present along b/l forearms. Imaging CT Spine,cervical w/o contrast (12/27) Reported as- 1. Degenerative changes without acute fracture. 2. Carotid vascular calcifications that can be followed with ultrasound. CT Head without contrast (12/27) Reported as- Chronic appearing changes in the brain without acute intracranial abnormality. If concern persists MRI can be performed. CHEST X-RAY (12/27) Reported as- 1. Improved appearance of the chest. 2. Residual densities in the left lung requiring follow-up. 3. AP window soft tissue prominence, better evaluated on the recent CT scan. MRI-Brain without Contrast (12/28) Reported as- 1. Punctate foci of restricted diffusion within the superior left frontal lobe, to which tiny acute infarcts cannot be excluded. 2. Other unchanged chronic findings. Assessment Pt is a 65yo F w PMHx of adrenal insufficiency managed with chronic prednisone, hypothyroidism, CAD, HTN, seizures s/p neurosurgery, hyperlipidemia, and apical L lung SCC for which she is began chemo 2 weeks ago and radiation on Monday. She presented Monday after a syncopal episode preceded by 2 days N/V, fevers and chills, and on initial evaluation had leukopenia (WBC 0.7), low grade fever, and hypotension. She was admitted for management of neutropenic fever. Plan 1. Neutropenic Fever 2/2 Chemotherapy We will discontinued Zosyn and start PO Levaquin (day 3 of antibiotics) to complete 10 day course. Two doses of Neupogen have been giving, and leukopenia has resolved - WBC at 10.2. We will DC Neupogen. 2. Nausea 2/2 Vertigo We will continue w meclizine, promethazine, and ondansetron PRN for sx relief. No clear evidence of intracranial etiology for vertigo/syncope on MRI. PT is working on Chantal maneuvers to improve sx. Suspicion of carboplatin as cause of vertigo. 3. Hypokalemia and Hypomagnesemia Mg at 1.6 and K at 3 this morning. We gave KCl and MgOx to correct electrolyte levels. Will recheck BMP. 4. Apical Lung Tumor Pt is scheduled for radiation therapy at 1:30pm today, as she follows with oncology. L shoulder has been mildly painful, last dose of oxycodone given early this morning w sx relief. 5. Suspicious Foci on MRI We will consider neurology consult to rule out infarcts/ evaluate unspecified intracranial pathology. 6. Adrenal Insufficiency We are giving prednisone 10mg BID w plan for a taper. She takes this at home since 2006. 7. GERD We will continue w omeprazole daily. 8. COPD Pt was sating at 93% on 3L O2. No acute exacerbation. We will continue w Advair and Albuterol PRN. 9. Hypothyroidism We will continue with home dose levothyroxine. 10. HTN We have held home amlodipine, irbesartan, and metoprolol d/t hypotension. BP well controlled over last 24hrs, we will continue to hold these meds. 11. CAD We will continue with Aspirin 81mg daily. 12. Hyperlipidemia We will continue w atorvastatin daily. 13. Seizures s/p neurosurgery We will continue w home dose of gabapentin. 14. DVT Prophylaxis We will continue w TEDs and Seqs. Disposition We will monitor for improvement of vertigo and pt will continue to be evaluated for clinical improvement. GME ATTESTATION My faculty preceptor for this patient encounter was physically present during the encounter and was fully available. All aspects of the patient interview, examination, medical decision making process, and medical care plan development were reviewed and approved by the faculty preceptor. The faculty preceptor is aware and concurs with the plan as stated in the body of this note and will attest to such by his co-signature. REFER TO ATTENDING NOTE VS,Fishbone, I+O VS, Fishbone, I+O Laboratory Tests 12/29/20 05:20 Vital Signs Date Time Temp Pulse Resp B/P (MAP) Pulse Ox O2 Delivery O2 Flow Rate FiO2 12/29/20 07:45 97.0 87 18 132/74 (93) 93 Nasal Cannula 12/29/20 05:20 3.0 I&O- Last 24 Hours up to 6 AM 12/29/20 06:00 Intake Total 240 ml Balance 240 ml ELENA SHINE [facility]-3 Dec 29, 2020 10:47 СВЕТЛАНА QUINTERO M.D. Jan 03, 2021 18:45
[2020-12-29 11:04] LABS: MAGNESIUM LEVEL 1.6 MG/DL (1.8-2.4)
[2020-12-29 11:45] VITALS: BP 108/71
[2020-12-29 16:28] VITALS: BP 132/82
--- NOTE | 2020-12-29 18:04 | CR.PDOC ---
General Date of Consultation: Dec 29, 2020 Referring Provider: RAUL IRVING DO Consultation REASON FOR CONSULTATION/CHIEF COMPLAINT: Requested by Dr. Irving due to patient's chronic illness with stage 4 lung cancer and her , Antonio's difficulty coping with her diagnosis. HISTORY OF PRESENT ILLNESS: Nasrin is a 65 year old female with stage 4 lung cancer. She is known to me from a previous admission where I attempted to help figure out a plan to better manage her pain with less nausea, however, did not have much success. Disuccsions regarding advanced directives were challenging, with Nasrin stating over and over she can't because her and son need her to care for them and her expressing extreme anxiety over her diagnosis and poor prognosis. She still remains a full code at this time. She was admitted with neuropenic fever and sepsis and is currently on PCU on neuropenic precautions. Review of notes indicated at one point she expressed she did not want to continue with treatment. On my arrival today, she stated "I have to continue treatment, I have stage 4 cancer and I don't have any choice. I have to live to take care of my ." ALLERGIES: Please see below. HOME MEDICATIONS: Please see below. PAST MEDICAL HISTORY: 1. SCCA lung, recieving RT, reports she will be getting chemo 2. Pituitary tumor s/p surgical partial resection and RT 3. 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 right lung cancer s/p VATS 5. HTN 6. GERD 7. adrenal insufficiency on prednisone chronically 8. occipital neuralgia 9. COPD 10. seizures from brain [id number]. CAD 12. HLD 13. hypothyroidism PAST SURGICAL HISTORY: 1. pituitary tumor partial excision 2. right lung biopsy, pneumothorax, chest tube 3. VATS 4. colonoscopy FAMILY HISTORY: Father: d. heart valve replacement, gangrenous infection. CAD Mother: d. ocular cancer, breast cancer, ovarian cancer, DM Siblings: sister d. MS; brother d. age 49 Children: 3 sons SOCIAL HISTORY: Marital status and/or living arrangements: , lives with and youngest son Children: 3 Employment: retired Tobacco use: [id number] after many years of 1-1.5 ppd ETOH: rare Illicit drug use: no IV drug use: no Other relevant social factors: na REVIEW OF SYSTEMS: CONSTITUTIONAL: +fevers, chills, fatigue, weight loss HEENT: burry vision, throat "scratchy" CARDIOVASCULAR: intermittent dull chest pain RESPIRATORY: +dyspnea, productive cough GENITOURINARY: no dysuria MUSCULOSKELETAL: some back pain, neck pain; left shoulder pain from tumor GASTROINTESTINAL: nausea with opiates, reports ondansetron is controlling this SKIN: +bruises NEUROLOGICAL: +weakness, + headaches PSYCHIATRIC: +anxiety ENDOCRINE: hypothyroid HEMATOLOGIC/LYMPHATIC: metastatic lungcancer PHYSICAL EXAMINATION: VITAL SIGNS: Please see below. GENERAL APPEARANCE: female resting in bed in no distress, alert, oriented able to make her needs known HEENT: mucous membrances moist RESPIRATORY: decreased breath sounds in bases, occasional wet cough, dyspneic with speech, wearing O2 NC CARDIOVASCULAR: RRR ABDOMEN: +BS, nontender, no guarding or rebound EXTREMITIES: no C/C/E NEUROLOGICAL: CN 3-12 grossly intact PSYCHIATRIC: anxious, appears to have capacity LABORATORY DATA: Please see below. ASSESSMENT/PLAN: 1. Stage 4 lung cancer 2. Failure to thrive I had a 45 minute telephone [facility]. He asked for some additional support and I offered to have Josefina Carrington [facility] contact him which he agreed to. She called him multiple times and either got his voice mail or was told he was too busy to talk. To date, she has not been able to connect with him. I will ask her to try to reach out to him again; Nasrin stated she has asked her not to visit every day as he is exceedingly anxious and she finds it exhausting answering all his questions when he is here. Of note, Nasrin had a follow up appointment in my clinic after I saw her on a previous admission that she did not keep. I called her telephone and left a HIPPA appropriate message but did not hear back for her or Antonio. Today Moriah and I spent some time talking about her medical condition. She is quite determined to continue treatment at this point despite some evidence to do so might be deleterious to her. As we talked, she did express that her cancer is exhausting and she is finding it more and more difficult to "fight". She also stated she was anxious about dying and I asked her if she was afraid of the process of dying or of itself. She stated it was the process that she fears, she worries about having pain or other symptoms and then spent time disc ussing her mother's from cancer as well as her father's from sepsis he developed after valve replacement surgery. Both experiences were very difficult for her and she appears to have a lot of guilt and anger around her parent's deaths. She is also insistent that her two sons who do not live locally not be told about her diagnosis and prognosis though this is placing a lot of burden on her youngest son that lives with them as he gets the phone calls from the other two. I attempted to encourage her to consider having a conversation wtih her sons so they might be allowed to prepare for her ongoing treatment and possible ; she was quite adamant this should not happen. I will attempt to see her again tomorrow and see if she might be ready to approach the subject of advance directives. She was given 5 Wishes on her a previous admission but clearly this is a subject she finds difficult to confront as does her . Time in 1645 time out 1745 Vital Signs/I&O Vital Signs Date Time Temp Pulse Resp B/P (MAP) Pulse Ox O2 Delivery O2 Flow Rate FiO2 12/29/20 16:28 99.0 93 18 132/82 (99) 96 Nasal Cannula 3.0 I&O- Last 24 Hours up to 6 AM 12/29/20 06:00 Intake Total 240 ml Balance 240 ml Laboratory Data Labs 24H Laboratory Tests 2 12/28/20 23:08: Vancomycin Level Trough 13.8 12/29/20 05:20: Immature Granulocyte % (Auto) 9.7H, Neutrophils (%) (Auto) 69.8H, Lymphocytes (%) (Auto) 8.6L, Monocytes (%) (Auto) 11.1H, Eosinophils (%) (Auto) 0.0, Basophils (%) (Auto) 0.8, Neutrophils # (Auto) 7.1, Lymphocytes # (Auto) 0.9L, Monocytes # (Auto) 1.1H, Eosinophils # (Auto) 0.0, Basophils # (Auto) 0.1, Nucleated Red Blood Cells % (auto) 0.6H, Anion Gap 11, Glomerular Filtration Rate > 60.0, Calcium Level 7.6L, Magnesium Level 1.6L CBC/BMP Laboratory Tests 12/29/20 05:20 Microbiology Microbiology 12/27/20 Respiratory Virus Panel (PCR) ([facility]) - Final, Complete 12/27/20 Blood Culture - Preliminary, Resulted No Growth after 48 hours. All Specime... 12/27/20 Blood Culture - Preliminary, Resulted No Growth after 48 hours. All Specime... Allergies Coded Allergies: Sulfa (Sulfonamide Antibiotics) (Verified Allergy, Mild, Rash, 12/14/20) codeine (Verified Adverse Reaction, Mild, N/V, 02/27/19) morphine (Verified Adverse Reaction, Mild, N/V, 02/27/19) oxycodone (Verified Adverse Reaction, Mild, N/V, 02/27/19) Home Medications Scheduled Amlodipine Besylate (Amlodipine Besylate) 5 Mg Tablet, 5 MG PO DAILY, (Reported) Aspirin (Ecotrin) 81 Mg Tab, 81 MG PO DAILY, (Reported) Atorvastatin Calcium (Atorvastatin Calcium) 80 Mg Tablet, 80 MG PO DAILY, (Reported) Fluticasone Propion/Salmeterol (Advair Hfa 230-21 Mcg Inhaler) 12 Gm Hfa.aer.ad, 2 PUFF INH BID, (Reported) Gabapentin (Gabapentin) 300 Mg Cap, 300 MG PO TID, (Reported) Irbesartan (Irbesartan) 150 Mg Tablet, 150 MG PO DAILY, (Reported) Levothyroxine Sodium (Levothyroxine Sodium) 75 Mcg Tablet, 75 MCG PO DAILY, (Reported) Metoprolol Succinate (Metoprolol Succinate) 50 Mg Tab.er.24h, 50 MG PO DAILY, (Reported) Omeprazole (Omeprazole) 20 Mg Capsule.dr, 20 MG PO DAILY, (Reported) Prednisone (Prednisone) 10 Mg Tablet, 10 MG PO TAPER, (Reported) 40MG FOR 4 DAYS, 30MG FOR 4 DAYS, 20MG FOR 4 DAYS, 10MG FOR 8 DAYS: STARTED ON 12/03/20 Scheduled PRN Albuterol Sulfate (Proair Hfa) 8.5 Gm Hfa.aer.ad, 2 PUFF INH Q4H PRN for SHORTNESS OF BREATH, (Reported) Modafinil (Modafinil) 100 Mg Tablet, 100 MG PO DAILY PRN for NARCOLEPSY, (Reported) Ondansetron HCl (Ondansetron HCl) 4 Mg Tablet, 4 MG PO Q6H PRN for NAUSEA OR VOMITING, (Reported) Oxycodone HCl (Oxycodone HCl) 5 Mg Tablet, 5 MG PO 6XD PRN for PAIN LEVEL 5-10, (Reported) Shereen WIGGINS [employer] Dec 29, 2020 18:04
[2020-12-29 20:00] VITALS: BP 122/71
--- NOTE | 2020-12-29 20:06 | IPNPDOC ---
Subjective Date Seen The patient was seen on 12/29/20. Subjective Chief Complaint/HPI Patient was seen and examined at bedside this morning. She complained of having dizziness when moving from supine to prone position, and when getting up from the bed. She described it as the room spinning which was associated with nausea and vomiting as well. She denies chest pain, shortness of breath, abdominal pain, problems with urination or bowel movements. Other systems 10 point review of system is negative except for what is noted in the HPI. Objective Physical Examination General Exam: Positive: Alert, Cooperative, No Acute Distress Eye Exam: Positive: PERRLA, EOMI, Other Eye Symptoms (subconjuctival hemorrhage in left eye on lateral aspect) ENT Exam: Positive: Atraumatic, Mucous membr. moist/pink, Pharynx Normal, Tongue Midline Chest Exam: Positive: Clear to auscultation, Normal air movement; Negative: Wheezing Heart Exam: Positive: Rate Normal, Regular Rhythm, Normal S1, Normal S2; Negative: Tachycardic Abdomen Exam: Positive: Normal bowel sounds, Soft; Negative: Tenderness, Hepatospenomegaly Extremity Exam: Negative: Clubbing, Cyanosis, Edema Neuro Exam: Positive: Normal Speech, Cranial Nerves 3-12 NL Assessment /Plan Plan/VTE VTE Prophylaxis Ordered?: Yes Plan #Neutropenic fever -History of small cell lung cancer actively being treated with radiation, and received 3 days of chemotherapy; found to be neutropenic and febrile. She was started on broad-spectrum antibiotics and received 2 days of Neupogen. She has now been afebrile for 48 hours, and improving neutrophil count. We will switch IV Zosyn to p.o. Levaquin to complete a 10 day course of antibiotics. #Sepsis -Resolved. On initial presentation patient was hypotensive and febrile. She was started on broad-spectrum antibiotics. Urinalysis did not show any evidence of infection. Blood cultures are negative. Chest x-ray does not show evidence of pneumonia. We will taper her IV antibiotics to p.o. #Electrolyte abnormality -Hypokalemia and hypomagnesemia. Replete magnesium and then potassium. Repeat chemistry in the a.m. #Vertigo -Dizziness with positional changes. An MRI was done that showed punctate foci of restricted diffusion within the superior left frontal lobe which is tiny acute infarcts cannot be excluded. Continue work with PT/OT. Will get in touch with neurology to see if they have any further recommendations in regards to the MRI findings. #Adrenal insufficiency -Chronically on prednisone 5 mg daily; this was uptitrated in the acute setting of sepsis. Plan to taper back to ambulatory dose. #COPD -No signs of acute exacerbation at this time. Continue Advair #CAD -Continue aspirin and statin therapy. Holding ibesartan and metoprolol succinate due to her blood pressure #HTN -Hold amatory antihypertensive medication due to her hypotension. We will start reintroduce the medications once BP is back to baseline #Seizure -Continue gabapentin #DVT -SCD, if platelet count remains stable will start heparin subq. VS, I&O, 24H, Fishbone Vital Signs/I&O Vital Signs Date Time Temp Pulse Resp B/P (MAP) Pulse Ox O2 Delivery O2 Flow Rate FiO2 12/29/20 12:00 3.0 12/29/20 11:45 97.2 89 20 108/71 (83) 97 Nasal Cannula I&O- Last 24 Hours up to 6 AM 12/29/20 05:59 Intake Total 240 ml Balance 240 ml Laboratory Data 24H LABS Laboratory Tests 2 12/28/20 23:08: Vancomycin Level Trough 13.8 12/29/20 05:20: Immature Granulocyte % (Auto) 9.7H, Neutrophils (%) (Auto) 69.8H, Lymphocytes (%) (Auto) 8.6L, Monocytes (%) (Auto) 11.1H, Eosinophils (%) (Auto) 0.0, Basophils (%) (Auto) 0.8, Neutrophils # (Auto) 7.1, Lymphocytes # (Auto) 0.9L, Monocytes # (Auto) 1.1H, Eosinophils # (Auto) 0.0, Basophils # (Auto) 0.1, Nucleated Red Blood Cells % (auto) 0.6H, Anion Gap 11, Glomerular Filtration Rate > 60.0, Calcium Level 7.6L, Magnesium Level 1.6L CBC/BMP Laboratory Tests 12/29/20 05:20 Microbiology Microbiology 12/27/20 Respiratory Virus Panel (PCR) (KRYSTAL) - Final, Complete 12/27/20 Blood Culture - Preliminary, Resulted No Growth after 48 hours. All Specime... 12/27/20 Blood Culture - Preliminary, Resulted No Growth after 48 hours. All Specime... СВЕТЛАНА QUINTERO M.D. Dec 29, 2020 16:15
[2020-12-30] VITALS: BP 109/67
[2020-12-30 04:00] VITALS: BP 136/72
[2020-12-30] MEDS: ACETAMINOPHEN TAB 650MG DOSE (2X325MG) PO PRN (04:12)
[2020-12-30] MEDS: LevoFLOXacin 750 MG TABLET PO SCH (05:21)
[2020-12-30] MEDS: LEVOTHYROXINE 75MCG TABLET (0.075MG) PO SCH (05:21)
[2020-12-30 06:11] LABS: BASO % 0.1 % (0.0-1.0); HEMATOCRIT 27.8 % (36.0-47.0); HEMOGLOBIN 9.1 g/dl (12.0-15.5); LYMPH # 1.8 10^3/uL (1.5-5.0); LYMPH % 8.5 % (24.0-44.0); MEAN CORPUSCULAR HGB CONC 32.7 g/dl (32.0-36.5); MEAN CORPUSCULAR VOLUME 94.6 fl (80.0-96.0); MONO # 1.3 10^3/uL (0.0-0.8); MONO % 5.9 % (2.0-8.0); NEUTROPHILS # 13.5 10^3/uL (1.5-8.5); NEUTROPHILS % 63.9 % (36.0-66.0); PLATELET COUNT, AUTOMATED 120 10^3/uL (150-450); RED BLOOD COUNT 2.94 10^6/uL (4.00-5.40); WHITE BLOOD COUNT 21.1 10^3/uL (4.0-10.0)
[2020-12-30 06:28] LABS: BLOOD UREA NITROGEN 9 MG/DL (7-18); CALCIUM LEVEL 7.8 MG/DL (8.8-10.2); CARBON DIOXIDE LEVEL 27 MEQ/L (21-32); CHLORIDE LEVEL 113 MEQ/L (98-107); CREATININE FOR GFR 0.75 MG/DL (0.55-1.30); GLOMERULAR FILTRATION RATE > 60.0 (>45); GLUCOSE, FASTING 94 MG/DL (70-100); MAGNESIUM LEVEL 1.6 MG/DL (1.8-2.4); PHOSPHORUS LEVEL 1.3 MG/DL (2.5-4.9); POTASSIUM SERUM 2.9 MEQ/L (3.5-5.1); SODIUM LEVEL 147 MEQ/L (136-145)
[2020-12-30] MEDS ORDERED: MAG SULF 1GM/100ML (MAG RUN) 1 GM in IV 1 EA IV ONE (07:00)
[2020-12-30] MEDS ORDERED: POTASSIUM CHLORIDE 10 MEQ SR TABLET PO ONE (07:00)
[2020-12-30] MEDS: ADVAIR HFA 230/21MCG INHALER INH SCH ×2 (07:34→19:42)
[2020-12-30] MEDS: KCL 10MEQ/100ML SWI (KRUN) 10 MEQ in IV 1 EA IV SCH ×4 (08:00→16:00)
[2020-12-30 08:12] VITALS: BP 134/70
[2020-12-30] MEDS: ASPIRIN 81MG ENTERIC TABLET PO SCH (09:34)
[2020-12-30] MEDS: SUCRALFATE SUSP 1GM/10ML UD PO SCH ×4 (09:34→21:00)
[2020-12-30] MEDS: OMEPRAZOLE 20 MG CAP PO SCH (09:34)
[2020-12-30] MEDS: ATORVASTATIN 20 MG TAB PO SCH (09:35)
[2020-12-30] MEDS: oxyCODONE 5MG TAB PO PRN ×2 (09:35→22:02)
[2020-12-30] MEDS: predniSONE 5 MG TAB PO SCH (09:35)
[2020-12-30] MEDS: GABAPENTIN 300 MG CAP PO SCH ×3 (09:35→22:02)
[2020-12-30] MEDS: ONDANSETRON 4MG/2ML VIAL IV PRN ×2 (09:36→22:01)
[2020-12-30] MEDS ORDERED: SLF 3 ML SYR IV PRN (10:05)
[2020-12-30] MEDS: MECLIZINE 25 MG TABLET PO PRN (11:08)
[2020-12-30 13:23] VITALS: BP 137/73
--- NOTE | 2020-12-30 13:43 | IPNPDOC ---
Subjective Date Seen The patient was seen on 12/30/20. Subjective Chief Complaint/HPI Patient seen and examined at bedside this morning. She reports some improvement in her dizziness which is mainly now when she stands up. She denied headaches, shortness of breath, chest pain, abdominal pain, nausea, vomiting, problems with urination and bowel movements Other systems 10 point review of system negative except for what is noted in the HPI. Objective Physical Examination Other physical findings General: Lying in bed, no acute distress Head/Neck/Throat: Trachea midline, mucous membranes moist Eyes: Sclera anicteric, no erythema or discharge appreciated bilateral Thorax: Normal respiratory effort on room air, lungs clear to auscultation bilaterally, no wheezes/rales/rhonchi Cardiovascular: Normal rate, regular rhythm, normal S1, S2; no S3, S4, rubs/gall ops/murmurs Abdomen: Bowel sounds present, soft/nontender/nondistended Genitourinary: No CVA tenderness, no Pyle in place Musculoskeletal: Moving all extremities, no edema Skin: Warm, dry Neurologic: AAOx3, speech fluent and goal-directed, no focal deficits, grossly intact. Reports dizziness when moving from supine to standing position Assessment /Plan Plan/VTE VTE Prophylaxis Ordered?: Yes Plan #Electrolyte abnormality -Replete potassium as well as magnesium. Will recheck at approximately 2000 to see if further supplementation is required #Neutropenic fever -Resolved. 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 She was started on broad-spectrum antibiotics and received 2 days of Neupogen. She has now been afebrile for 48 hours, and improving neutrophil count. We will switch IV Zosyn to p.o. Levaquin to complete a 5-day course. Discussed plan with Dr. Randall (halal butcher/oncologist) #Sepsis -Resolved. On initial presentation patient was hypotensive and febrile. She was started on broad-spectrum antibiotics. Urinalysis did not show any evidence of infection. Blood cultures are negative. Chest x-ray does not show evidence of pneumonia. We will taper her IV antibiotics to p.o. #Vertigo -Dizziness with positional changes. An MRI was done that showed punctate foci of restricted diffusion within the superior left frontal lobe which is tiny acute infarcts cannot be excluded. Continue work with PT/OT. -Discussed case with the oncology as well as neurology team. The above findings of MRI would not explain her dizziness, it is possible at that the side effects are likely from the cisplatin therapy that may be causing neuropathy. This was explained to the patient in length as well as the necessary precautions that she would need to take. -Due to the MRI findings we will complete a stroke work-up including an MRA of the brain, carotid ultrasound, and an echocardiogram with agitated saline. For now continue with aspirin as well as statin therapy. This plan was discussed with the neurology team #Adrenal insufficiency -Chronically on prednisone 5 mg daily; this was uptitrated in the acute setting of sepsis. Plan to taper back to ambulatory dose. #COPD -No signs of acute exacerbation at this time. Continue Advair #CAD -Continue aspirin and statin therapy. Holding ibesartan and metoprolol succinate due to her blood pressure #HTN -Hold amatory antihypertensive medication due to her hypotension. We will start reintroduce the medications once BP is back to baseline #Seizure -Continue gabapentin #DVT -SCD, if platelet count remains stable will start heparin subq. VS, I&O, 24H, Fishbone Vital Signs/I&O Vital Signs Date Time Temp Pulse Resp B/P (MAP) Pulse Ox O2 Delivery O2 Flow Rate FiO2 12/30/20 04:00 99.1 99 17 136/72 (93) 93 Nasal Cannula 3.0 I&O- Last 24 Hours up to 6 AM 12/30/20 06:00 Intake Total 840 ml Output Total 0 ml Balance 840 ml Laboratory Data 24H LABS Laboratory Tests 2 12/30/20 05:40: Immature Granulocyte % (Auto) 21.6H, Neutrophils (%) (Auto) 63.9, Lymphocytes (%) (Auto) 8.5L, Monocytes (%) (Auto) 5.9, Eosinophils (%) (Auto) 0.0, Basophils (%) (Auto) 0.1, Neutrophils # (Auto) 13.5H, Lymphocytes # (Auto) 1.8, Monocytes # (Auto) 1.3H, Eosinophils # (Auto) 0.0, Basophils # (Auto) 0.0, Nucleated Red Blood Cells % (auto) 0.8H, Anion Gap 7L, Glomerular Filtration Rate > 60.0, Calcium Level 7.8L, Phosphorus Level 1.3L, Magnesium Level 1.6L CBC/BMP Laboratory Tests 12/30/20 05:40 Microbiology Microbiology 12/27/20 Respiratory Virus Panel (PCR) ([facility]) - Final, Complete 12/27/20 Blood Culture - Preliminary, Resulted No Growth after 72 hours. All specime... 12/27/20 Blood Culture - Preliminary, Resulted No Growth after 72 hours. All specime... СВЕТЛАНА QUINTERO M.D. Dec 30, 2020 07:14
[2020-12-30] MEDS: SLF 3 ML SYR IV SCH ×2 (14:00→22:03)
--- NOTE | 2020-12-30 14:46 | REP ---
INDICATION: MRI findings with possible acute stroke COMPARISON: None. TECHNIQUE: Real-time ultrasound evaluation and duplex Doppler interrogation of the extracranial carotid vasculature is performed. FINDINGS: There is mild plaquing and narrowing in both carotid bulbs extending into the internal and external carotid arteries. Luminal narrowing is less than 50%. There is no evidence of hemodynamically significant stenosis of either internal carotid artery. Normal flow velocities are seen. The vertebral arteries demonstrate normal direction of flow. RIGHT LEFT Peak systolic velocity ICA 76.8 cm/s 71.9 cm/s End diastolic velocity ICA 25.5 cm/s 68.8 cm/s Peak systolic velocity CCA 93.1 cm/s 71.9cm/s Peak systolic velocity ECA 53.5 cm/s 50.9 cm/s ICA/CCA ratio 0.82 0.96 IMPRESSION: Bilateral luminal narrowing of the internal carotid arteries less than 50%. No evidence of hemodynamically significant stenosis. <Electronically signed by Mark Link > 12/30/20 [id number]
--- NOTE | 2020-12-30 17:26 | REPVR ---
PROCEDURE INFORMATION: Exam: MRA Head Without Contrast; Arteriography Exam date and time: 12/30/2020 4:40 PM Age: 65 years old Clinical indication: Abnormal findings; Abnormal mri of head; Additional info: Mri finding with acute stroke TECHNIQUE: Imaging protocol: Magnetic resonance angiography head without contrast. Exam focused on the arteries. COMPARISON: MRA BRAIN W/O CONTRAST 12/15/2017 2:07 AM FINDINGS: ANTERIOR CIRCULATION: Right internal carotid artery: There is approximately 50% stenosis of the supraclinoid portion of right internal carotid artery by encasement by mass. No significant change from prior study when measured similarly. Right middle cerebral artery: No occlusion or significant stenosis. No aneurysm. Right anterior cerebral artery: No occlusion or significant stenosis. No aneurysm. Left internal carotid artery: Intracranial segment is patent with no significant stenosis. No aneurysm. Left middle cerebral artery: No occlusion or significant stenosis. No aneurysm. Left anterior cerebral artery: No occlusion or significant stenosis. No aneurysm. POSTERIOR CIRCULATION: Right vertebral artery: No occlusion or significant stenosis. No aneurysm. Left vertebral artery: No occlusion or significant stenosis. No aneurysm. Basilar artery: No occlusion or significant stenosis. No aneurysm. Right posterior cerebral artery: No occlusion or significant stenosis. No aneurysm. Left posterior cerebral artery: origin of the left posterior cerebral artery. IMPRESSION: Approximately 50% stenosis of the supraclinoid portion of right internal carotid artery by encasement by mass. No significant change from prior study when measured similarly. Electronically signed by: José Hernández On 12/30/2020 17:26:19 PM
[2020-12-30] MEDS ORDERED: HEPARIN SOD (PORCINE) 5000UNITS/ML 1ML VIAL/SYRINGE SQ SCH (18:00)
[2020-12-30 20:00] VITALS: BP 125/70
[2020-12-30 20:42] LABS: BLOOD UREA NITROGEN 8 MG/DL (7-18); CALCIUM LEVEL 7.9 MG/DL (8.8-10.2); CARBON DIOXIDE LEVEL 30 MEQ/L (21-32); CHLORIDE LEVEL 110 MEQ/L (98-107); CREATININE FOR GFR 0.82 MG/DL (0.55-1.30); GLOMERULAR FILTRATION RATE > 60.0 (>45); GLUCOSE, FASTING 98 MG/DL (70-100); MAGNESIUM LEVEL 2.2 MG/DL (1.8-2.4); PHOSPHORUS LEVEL 1.8 MG/DL (2.5-4.9); POTASSIUM SERUM 4.6 MEQ/L (3.5-5.1); SODIUM LEVEL 144 MEQ/L (136-145)
[2020-12-30] MEDS: HEPARIN SOD (PORCINE) 5000UNITS/ML 1ML VIAL/SYRINGE SQ SCH (22:02)
[2020-12-31] VITALS: BP 144/76
[2020-12-31 04:00] VITALS: BP 137/81
[2020-12-31 04:56] LABS: HEMATOCRIT 27.4 % (36.0-47.0); HEMOGLOBIN 8.8 g/dl (12.0-15.5); LYMPH # 1.9 10^3/uL (1.5-5.0); MEAN CORPUSCULAR HEMOGLOBIN 30.4 pg (27.0-33.0); MEAN CORPUSCULAR HGB CONC 32.1 g/dl (32.0-36.5); MEAN CORPUSCULAR VOLUME 94.8 fl (80.0-96.0); MONO # 2.3 10^3/uL (0.0-0.8); MONO % 9.3 % (2.0-8.0); NEUTROPHILS % 57.8 % (36.0-66.0); PLATELET COUNT, AUTOMATED 126 10^3/uL (150-450); RED BLOOD COUNT 2.89 10^6/uL (4.00-5.40)
[2020-12-31 04:57] LABS: WHITE BLOOD COUNT 24.3 10^3/uL (4.0-10.0)
[2020-12-31 05:25] LABS: BLOOD UREA NITROGEN 9 MG/DL (7-18); CALCIUM LEVEL 8.1 MG/DL (8.8-10.2); CARBON DIOXIDE LEVEL 31 MEQ/L (21-32); CHLORIDE LEVEL 109 MEQ/L (98-107); CREATININE FOR GFR 0.65 MG/DL (0.55-1.30); GLOMERULAR FILTRATION RATE > 60.0 (>45); GLUCOSE, FASTING 82 MG/DL (70-100); MAGNESIUM LEVEL 2.1 MG/DL (1.8-2.4); PHOSPHORUS LEVEL 1.8 MG/DL (2.5-4.9); POTASSIUM SERUM 3.9 MEQ/L (3.5-5.1); SODIUM LEVEL 142 MEQ/L (136-145)
[2020-12-31] MEDS: LEVOTHYROXINE 75MCG TABLET (0.075MG) PO SCH (06:32)
[2020-12-31] MEDS: LevoFLOXacin 750 MG TABLET PO SCH (06:32)
[2020-12-31] MEDS: HEPARIN SOD (PORCINE) 5000UNITS/ML 1ML VIAL/SYRINGE SQ SCH ×3 (06:33→22:43)
[2020-12-31] MEDS: SLF 3 ML SYR IV SCH ×3 (06:33→22:44)
--- NOTE | 2020-12-31 06:34 | IPNPDOC ---
Subjective Date Seen The patient was seen on 12/31/20. Subjective Chief Complaint/HPI Patient was seen and examined at bedside this morning. She reports that her dizziness still persists but it is not as severe. She denied headaches, shortness of breath, chest pain, abdominal pain, nausea, vomiting, problem with urination or bowel movements. Other systems 10 point review of system was negative except for what is noted in the HPI. Objective Physical Examination Other physical findings General: Lying in bed, no acute distress Head/Neck/Throat: Trachea midline, mucous membranes moist Eyes: Sclera anicteric, no erythema or discharge appreciated bilateral Thorax: Normal respiratory effort on room air, lungs clear to auscultation bilaterally, no wheezes/rales/rhonchi Cardiovascular: Normal rate, regular rhythm, normal S1, S2; no S3, S4, rubs/gallops/murmurs Abdomen: Bowel sounds present, soft/nontender/nondistended Genitourinary: No CVA tenderness, no Pyle in place Musculoskeletal: Moving all extremities, no edema Skin: Warm, dry Neurologic: AAOx3, speech fluent and goal-directed, no focal deficits, grossly intact. Reports dizziness when moving from supine to standing position Assessment /Plan Plan/VTE VTE Prophylaxis Ordered?: Yes Plan #Electrolyte abnormality -Replete phosphorus. #Neutropenic fever -Resolved. 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 She was s tarted on broad-spectrum antibiotics and received 2 days of Neupogen. She has now been afebrile for 48 hours, and improving neutrophil count. We will switch IV Zosyn to p.o. Levaquin to complete a 5-day course. Discussed plan with Dr. Randall (fibre optic cable splicer/oncologist) #Sepsis -Resolved. On initial presentation patient was hypotensive and febrile. She was started on broad-spectrum antibiotics. Urinalysis did not show any evidence of infection. Blood cultures are negative. Chest x-ray does not show evidence of pneumonia. We will taper her IV antibiotics to p.o. #CVA -MRI done for vertigo noted acute infarcts in the frontal lobes. MRA and ultrasound of the carotid arteries does not show significant stenosis. Echocardiogram read is pending. Continue with aspirin and high intensity statin #Vertigo -Dizziness with positional changes.Discussed case with the oncology as well as neurology team. The findings of MRI would not explain her dizziness, it is possible at that the side effects are likely from the cisplatin therapy that may be causing neuropathy. This was explained to the patient in length as well as the necessary precautions that she would need to take. -Orthostatics negative -Continue with meclizine, PT/OT #Adrenal insufficiency -Chronically on prednisone 5 mg daily; this was uptitrated in the acute setting of sepsis. Plan to taper back to ambulatory dose. #COPD -No signs of acute exacerbation at this time. Continue Advair #CAD -Continue aspirin and statin therapy. Holding ibesartan and metoprolol succinate due to her blood pressure #HTN -Hold amatory antihypertensive medication due to her hypotension. We will start reintroduce the medications once BP is back to baseline #Seizure -Continue gabapentin #DVT -SCD, if platelet count remains stable will start heparin subq. VS, I&O, 24H, Fishbone Vital Signs/I&O Vital Signs Date Time Temp Pulse Resp B/P (MAP) Pulse Ox O2 Delivery O2 Flow Rate FiO2 12/31/20 04:00 98.7 95 17 137/81 (99) 91 Nasal Cannula 4.0 I&O- Last 24 Hours up to 6 AM 12/31/20 06:00 Intake Total 0 ml Output Total 0 ml Balance 0 ml Laboratory Data 24H LABS Laboratory Tests 2 12/30/20 19:48: Anion Gap 4L, Glomerular Filtration Rate > 60.0, Calcium Level 7.9L, Phosphorus Level 1.8#L, Magnesium Level 2.2 12/31/20 04:25: Anion Gap 2L, Glomerular Filtration Rate > 60.0, Calcium Level 8.1L, Phosphorus Level 1.8L, Magnesium Level 2.1, Immature Granulocyte % (Auto) 24.9H, Neutrophils (%) (Auto) 57.8, Lymphocytes (%) (Auto) 8.0L, Monocytes (%) (Auto) 9.3H, Eosinophils (%) (Auto) 0.0, Basophils (%) (Auto) 0.0, Neutrophils # (Auto) 14.0H, Lymphocytes # (Auto) 1.9, Monocytes # (Auto) 2.3H, Eosinophils # (Auto) 0.0, Basophils # (Auto) 0.0, Nucleated Red Blood Cells % (auto) 0.5H CBC/BMP Laboratory Tests 12/30/20 19:48 12/31/20 04:25 Microbiology Microbiology 12/27/20 Respiratory Virus Panel (PCR) ([facility]) - Final, Complete 12/27/20 Blood Culture - Preliminary, Resulted No Growth after 72 hours. All specime... 12/27/20 Blood Culture - Preliminary, Resulted No Growth after 72 hours. All specime... СВЕТЛАНА QUINTERO M.D. Dec 31, 2020 06:34
[2020-12-31] MEDS: SUCRALFATE SUSP 1GM/10ML UD PO SCH ×4 (07:30→21:00)
[2020-12-31 08:00] VITALS: BP_SYST 119; BP_SYST 126; BP_SYST 131; BP_DIAS 63; BP_DIAS 76; BP_DIAS 81; BP_DIAS 83
[2020-12-31] MEDS: ADVAIR HFA 230/21MCG INHALER INH SCH ×2 (08:00→20:00)
--- NOTE | 2020-12-31 08:04 | CR ---
CONSULTATION DATE: 12/30/2020 REFERRING PHYSICIAN: RAUL IRVING DO REASON FOR CONSULTATION: Dizziness, passing out spell and stroke. 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 The patient is currently getting radiation therapy to her left shoulder for her lung cancer. The patient states that she felt dizzy and passed out over the weekend. She states that her was with her. She states that she was walking to the bathroom and passed out. She hit the left side of her head on the counter. She was brought to the Emergency Department. There was no shaking, tongue biting or urinary incontinence. She was found to have neutropenia with WBC of 0.7 with fever and she was started on broad spectrum antibiotics with Neupogen. Her MRI scan of brain showed a tiny left frontal acute lacunar ischemic stroke, large right frontal old encephalomalacia. Her WBCs have increased to 21.1, hemoglobin 9.1, platelet count 120,000. Potassium was 2.9 with negative urine toxicology screen. The patient complains of dizziness which is brought on by standing up or turning her head when sitting. Dizziness comes and goes. 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 Hypertension, acid reflux, renal insufficiency, occipital neuralgia, COPD, history of seizures, status post brain surgery, coronary artery disease, hypertension, dyslipidemia. FAMILY HISTORY: Father had heart disease, mother had a history of cancer behind the eye, breast cancer, ovarian cancer, diabetes and brain tumor. SOCIAL HISTORY: She denies smoking, alcohol or illicit drugs. REVIEW OF SYSTEMS: All systems were reviewed and found to be noncontributory except as mentioned in the history of present illness. HOME MEDICATIONS: 1. Amlodipine 5 mg p.o. daily. 2. Aspirin 81 mg p.o. daily. 3. Atorvastatin 80 mg p.o. daily. 4. Gabapentin 300 mg p.o. t.i.d. 5. Irbesartan 150 mg p.o. daily. 6. Advair inhaler. 7. Levothyroxine 75 mcg p.o. daily. 8. Metoprolol 50 mg p.o. daily. 9. Omeprazole 20 mg p.o. daily. 10.Prednisone 10 mg p.o. daily. 11.Albuterol inhaler. 12.Provigil 100 mg p.o. daily p.r.n. 13.Oxycodone 5 mg p.o. q.i.d. p.r.n. 14.Zofran as needed. ALLERGIES: Sulfa, codeine, morphine, oxycodone which caused nausea and vomiting. PHYSICAL EXAMINATION: Temperature is 98.8, blood pressure is 137/73, 93% saturation on 4 liters nasal cannula oxygen, respiratory rate 18. Heart: Regular rate and rhythm. Lungs are clear to auscultation. Abdomen is soft, nontender and nondistended. No pedal edema. No musculoskeletal abnormalities. No rash. No signs of meningeal irritation. Patient is awake, alert and oriented to person, place and time. Normal speech, comprehension and repetition. Extraocular muscles intact. No facial weakness. Tongue and uvula midline, 5/5 strength in upper extremities. Reflexes 1+ throughout. She has decreased cold, pin prick vibration, sensation in her feet. Gait is minimally unsteady. ASSESSMENT: 1. Small left frontal acute lacunar stroke. 2. Large right frontal encephalomalacia due to history of patient's brain tumor for which she had surgery twice and radiation therapy. 3. Dizziness and vertigo. 4. Episode of loss of consciousness, concern for vasovagal syncope. PLAN: 1. MRA of brain and carotid ultrasound. 2. EEG. 3. Check orthostatic pulse and blood pressure. Rule out dysautonomia. 4. Renal insufficiency and history of chemotherapy can result in neuropathy including autonomic neuropathy affecting small fibers. 5. Continue aspirin 81 mg p.o. daily and Lipitor 80 mg p.o. daily. 6. Echocardiogram and telemetry monitoring. 7. Follow-up in our office in two weeks after hospital discharge. SHIELA
[2020-12-31] MEDS: predniSONE 5 MG TAB PO SCH (08:19)
[2020-12-31] MEDS: ASPIRIN 81MG ENTERIC TABLET PO SCH (08:19)
[2020-12-31] MEDS: OMEPRAZOLE 20 MG CAP PO SCH (08:19)
[2020-12-31] MEDS: ATORVASTATIN 20 MG TAB PO SCH (08:19)
[2020-12-31] MEDS: GABAPENTIN 300 MG CAP PO SCH ×3 (08:20→20:05)
[2020-12-31] MEDS: ONDANSETRON 4MG/2ML VIAL IV PRN ×2 (08:29→16:48)
[2020-12-31] MEDS: oxyCODONE 5MG TAB PO PRN ×2 (08:30→16:48)
[2020-12-31] MEDS: MECLIZINE 25 MG TABLET PO PRN (11:01)
[2020-12-31] MEDS ORDERED: K-PHOS ORIGINAL (POT.ACID PHOSPHATE) 500MG TAB PO ONE (14:00)
[2020-12-31 16:00] VITALS: BP 131/74
[2020-12-31 20:00] VITALS: BP 142/86
[2021-01-01 04:00] VITALS: BP 149/83
[2021-01-01 04:56] LABS: BASO % 0.1 % (0.0-1.0); HEMATOCRIT 27.4 % (36.0-47.0); HEMOGLOBIN 8.9 g/dl (12.0-15.5); LYMPH # 1.4 10^3/uL (1.5-5.0); LYMPH % 8.3 % (24.0-44.0); MEAN CORPUSCULAR HGB CONC 32.5 g/dl (32.0-36.5); MEAN CORPUSCULAR VOLUME 95.5 fl (80.0-96.0); MONO # 1.7 10^3/uL (0.0-0.8); MONO % 10.6 % (2.0-8.0); NEUTROPHILS # 8.8 10^3/uL (1.5-8.5); PLATELET COUNT, AUTOMATED 144 10^3/uL (150-450); RED BLOOD COUNT 2.87 10^6/uL (4.00-5.40)
[2021-01-01 04:57] LABS: WHITE BLOOD COUNT 16.5 10^3/uL (4.0-10.0)
[2021-01-01] MEDS ORDERED: PILL CUTTER 1 EACH XX PRN (05:05)
[2021-01-01 05:32] LABS: BLOOD UREA NITROGEN 8 MG/DL (7-18); CALCIUM LEVEL 7.5 MG/DL (8.8-10.2); CARBON DIOXIDE LEVEL 30 MEQ/L (21-32); CHLORIDE LEVEL 107 MEQ/L (98-107); CREATININE FOR GFR 0.63 MG/DL (0.55-1.30); GLOMERULAR FILTRATION RATE > 60.0 (>45); GLUCOSE, FASTING 87 MG/DL (70-100); MAGNESIUM LEVEL 1.9 MG/DL (1.8-2.4); PHOSPHORUS LEVEL 2.9 MG/DL (2.5-4.9); POTASSIUM SERUM 3.5 MEQ/L (3.5-5.1); SODIUM LEVEL 142 MEQ/L (136-145)
[2021-01-01] MEDS: LevoFLOXacin 750 MG TABLET PO SCH (06:16)
[2021-01-01] MEDS: LEVOTHYROXINE 75MCG TABLET (0.075MG) PO SCH (06:16)
[2021-01-01] MEDS: HEPARIN SOD (PORCINE) 5000UNITS/ML 1ML VIAL/SYRINGE SQ SCH ×2 (06:17→13:57)
[2021-01-01] MEDS: SLF 3 ML SYR IV SCH ×2 (06:21→13:48)
[2021-01-01] MEDS: SUCRALFATE SUSP 1GM/10ML UD PO SCH ×2 (07:30→11:33)
[2021-01-01] MEDS: ADVAIR HFA 230/21MCG INHALER INH SCH (07:50)
[2021-01-01 08:00] VITALS: BP 133/79
[2021-01-01] MEDS: ASPIRIN 81MG ENTERIC TABLET PO SCH (09:26)
[2021-01-01] MEDS: predniSONE 5 MG TAB PO SCH (09:26)
[2021-01-01] MEDS: ATORVASTATIN 20 MG TAB PO SCH (09:27)
[2021-01-01] MEDS: GABAPENTIN 300 MG CAP PO SCH (09:28)
[2021-01-01] MEDS: OMEPRAZOLE 20 MG CAP PO SCH (09:32)
[2021-01-01] MEDS: ACETAMINOPHEN TAB 650MG DOSE (2X325MG) PO PRN (09:34)
[2021-01-01] MEDS ORDERED: METO1TAB32 PO (10:41)
[2021-01-01] MEDS ORDERED: LEVO750T13 PO (10:41)
[2021-01-01] MEDS ORDERED: IRBE75TA4 PO (10:41)
[2021-01-01] MEDS ORDERED: MECL-86 PO (10:41)
[2021-01-01] MEDS ORDERED: POTASSIUM CHLORIDE 10 MEQ SR TABLET PO ONE (11:00)
--- NOTE | 2021-01-01 11:18 | DS.PDOC ---
Discharge Summary General Date of Admission Dec 27, 2020 at 08:35 Date of Discharge 01/01/21 Primary Care Physician: CORINNE SHUKLA MD Attending Physician: СВЕТЛАНА QUINTERO M.D. Discharge Summary PRIMARY DISCHARGE DIAGNOSES: 1. Neutropenic fever 2. Sepsis 2. Hypotension 3. Vertigo 4. Electrolyte abnormality (hypokalemia/hypomagnesemia) Ms. Coburn, presented to [facility] on 12/27/20 with fever and a syncopal event. She has a history of small cell lung cancer which she is actively receiving treatment for. In the emergency department she was noted to have neutropenia. She is placed broad-spectrum antibiotics empirically and received 2 days of filgrastim. There was no clear source identified on urinalysis as well as blood cultures, and imaging. A CT cervical spine done that showed degenerative changes without any acute infarcts. A head CT done on admission also showed chronic appearing changes in the brain without any acute abnormality. A chest x-ray showed residual densities in the left lung requiring follow-up which can be determined by her primary oncologist. Due to her persistent dizziness an MRI of the brain was done to ensure there was no acute pathology causing her symptoms. There was a tiny infarct in the superior left frontal lobe which would not explain her symptoms, however was a new finding. Neurology was consulted for assistance. Her dizziness is likely due to neuropathy likely from chemotherapy that she had received. An MRA of the brain as well as carotid ultrasound was done that showed no acute stenosis. She is encouraged to follow-up with the neurologist in 2 weeks after hospital discharge. An echocardiogram with agitated saline was done however studies were pending and this will need follow-up with the neurologist and/or the primary care physician. She worked with physical therapy which helped her symptoms in addition to as needed meclizine. Home health was consulted for home PT as per recommendations by physical therapy. It was noted that she was hypotensive during admission therefore her antihypertensives needed to be held. At the time of discharge, her amlodipine was discontinued, her irbesartan as well as metoprolol were decreased with holding parameters. She was educated on taking her blood pressure and checking her heart rate. She was also asked to follow-up with her primary care physician for further management of her blood pressure She was asked to have repeat CBC as well as chemistry done with her primary care physician. Vital Signs/I&Os Vital Signs Date Time Temp Pulse Resp B/P (MAP) Pulse Ox O2 Delivery O2 Flow Rate FiO2 01/01/21 04:00 98.1 88 18 149/83 (105) 98 Nasal Cannula 4.0 I&O- Last 24 Hours up to 6 AM 01/01/21 06:00 Intake Total 360 ml Balance 360 ml PHYSICAL EXAM General: Lying in bed, no acute distress Head/Neck/Throat: Trachea midline, mucous membranes moist Eyes: Sclera anicteric, no erythema or discharge appreciated bilateral Thorax: Normal respiratory effort on room air, lungs clear to auscultation bilaterally, no wheezes/rales/rhonchi Cardiovascular: Normal rate, regular rhythm, normal S1, S2; no S3, S4, rubs/gallops/murmurs Abdomen: Bowel sounds present, soft/nontender/nondistended Genitourinary: No CVA tenderness, no Pyle in place Musculoskeletal: Moving all extremities, no edema Skin: Warm, dry Neurologic: AAOx3, speech fluent and goal-directed, no focal deficits, grossly intact. Reports dizziness when moving from supine to standing position Laboratory Data Labs 24H Laboratory Tests 2 01/01/21 04:37: Immature Granulocyte % (Auto) 28.0H, Neutrophils (%) (Auto) 53.0, Lymphocytes (%) (Auto) 8.3L, Monocytes (%) (Auto) 10.6H, Eosinophils (%) (Auto) 0.0, Basophils (%) (Auto) 0.1, Neutrophils # (Auto) 8.8H, Lymphocytes # (Auto) 1.4L, Monocytes # (Auto) 1.7H, Eosinophils # (Auto) 0.0, Basophils # (Auto) 0.0, Nucleated Red Blood Cells % (auto) 0.5H, Anion Gap 5L, Glomerular Filtration Rate > 60.0, Calcium Level 7.5L, Phosphorus Level 2.9#, Magnesium Level 1.9 CBC/BMP Laboratory Tests 01/01/21 04:37 Microbiology Microbiology 12/27/20 Respiratory Virus Panel (PCR) ([facility]) - Final, Complete 12/27/20 Blood Culture - Final, Complete NO GROWTH AFTER 5 DAYS 12/27/20 Blood Culture - Final, Complete NO GROWTH AFTER 5 DAYS Discharge Medications Scheduled Aspirin (Ecotrin) 81 Mg Tab, 81 MG PO DAILY, (Reported) Atorvastatin Calcium (Atorvastatin Calcium) 80 Mg Tablet, 80 MG PO DAILY, (Reported) Fluticasone Propion/Salmeterol (Advair Hfa 230-21 Mcg Inhaler) 12 Gm Hfa.aer.ad, 2 PUFF INH BID, (Reported) Gabapentin (Gabapentin) 300 Mg Cap, 300 MG PO TID, (Reported) Irbesartan (Irbesartan) 75 Mg Tablet, 75 MG PO DAILY Levofloxacin (Levofloxacin) 750 Mg Tablet, 750 MG PO DAILY@06 Levothyroxine Sodium (Levothyroxine Sodium) 75 Mcg Tablet, 75 MCG PO DAILY, (Reported) Metoprolol Succinate (Metoprolol Succinate) 25 Mg Tab.er.24h, 1 TAB PO DAILY Omeprazole (Omeprazole) 20 Mg Capsule.dr, 20 MG PO DAILY, (Reported) Prednisone (Prednisone) 10 Mg Tablet, 10 MG PO TAPER, (Reported) 40MG FOR 4 DAYS, 30MG FOR 4 DAYS, 20MG FOR 4 DAYS, 10MG FOR 8 DAYS: STARTED ON 12/03/20 Scheduled PRN Albuterol Sulfate (Proair Hfa) 8.5 Gm Hfa.aer.ad, 2 PUFF INH Q4H PRN for SHORTNESS OF BREATH, (Reported) Meclizine HCl (Meclizine HCl) 25 Mg Tablet, 25 MG PO Q6HP PRN for dizziness/vertigo Modafinil (Modafinil) 100 Mg Tablet, 100 MG PO DAILY PRN for NARCOLEPSY, (Reported) Ondansetron HCl (Ondansetron HCl) 4 Mg Tablet, 4 MG PO Q6H PRN for NAUSEA OR VOMITING, (Reported) Oxycodone HCl (Oxycodone HCl) 5 Mg Tablet, 5 MG PO 6XD PRN for PAIN LEVEL 5-10, (Reported) Allergies Coded Allergies: Sulfa (Sulfonamide Antibiotics) (Verified Allergy, Mild, Rash, 12/14/20) codeine (Verified Adverse Reaction, Mild, N/V, 02/27/19) morphine (Verified Adverse Reaction, Mild, N/V, 02/27/19) oxycodone (Verified Adverse Reaction, Mild, N/V, 02/27/19) СВЕТЛАНА QUINTERO M.D. Jan 01, 2021 06:26
== END 2021-01-01 15:03 | disposition home health service (06) | DRG 871 ==
LOC: M ED 05:26 → M ED INP 08:35 → ENRESERV 10:40 → M PCU 10:55
PROVIDERS: ADMIT Internal Medicine; ATTEND Internal Medicine
DX: A41.9 Sepsis, unspecified organism (principal); I63.59 Cerebral infarction due to unspecified occlusion or stenosis of other cerebral artery; E27.40 Unspecified adrenocortical insufficiency; C34.90 Malignant neoplasm of unspecified part of unspecified bronchus or lung; D61.818 Other pancytopenia; D70.9 Neutropenia, unspecified; I10 Essential (primary) hypertension; K21.9 Gastro-esophageal reflux disease without esophagitis; M54.81 Occipital neuralgia; J44.9 Chronic obstructive pulmonary disease, unspecified; I25.10 Atherosclerotic heart disease of native coronary artery without angina pectoris; E83.42 Hypomagnesemia; H54.62 Unqualified visual loss, left eye, normal vision right eye; E78.5 Hyperlipidemia, unspecified; T45.1X5A Adverse effect of antineoplastic and immunosuppressive drugs, initial encounter; G93.89 Other specified disorders of brain; E87.6 Hypokalemia; E03.9 Hypothyroidism, unspecified; R62.7 Adult failure to thrive; G62.0 Drug-induced polyneuropathy; R56.9 Unspecified convulsions; Z79.52 Long term (current) use of systemic steroids; Z79.82 Long term (current) use of aspirin; Z79.899 Other long term (current) drug therapy; Z88.2 Allergy status to sulfonamides; Z88.5 Allergy status to narcotic agent; Z87.891 Personal history of nicotine dependence

== ENCOUNTER 2020-12-31 13:15 | Outpatient (RCR) | payer MEDICARE, MEDICAID ==
[~2020-12-31 13:15] MED LIST changes: -PROC10TA4 PO; +PROC10TA5 PO
[2021-01-01] MEDS ORDERED: MECL-86 PO (10:41)
[2021-01-01] MEDS ORDERED: LEVO750T13 PO (10:41)
[2021-01-01] MEDS ORDERED: METO1TAB32 PO (10:41)
[2021-01-01] MEDS ORDERED: IRBE75TA4 PO (10:41)
[2021-01-27] MEDS ORDERED: MECL-86 PO (12:06)
[2021-02-03] MEDS ORDERED: LEVO750T14 PO (08:39)
[2021-02-24] MEDS ORDERED: DRON2.5C11 PO (10:47)
[2021-02-24] MEDS ORDERED: SERT-141 PO (17:45)
[2021-03-03] MEDS ORDERED: ONDA-83 PO (10:35)
[2021-03-04] MEDS ORDERED: CEPH500C PO (16:44)
[2021-04-01] MEDS ORDERED: MEMA10TA19 PO (08:31)
[2021-04-01] MEDS ORDERED: MEMA1TAB3 PO (08:33)
[2021-04-01] MEDS ORDERED: OXYC-517 PO ×2 (11:46→14:56)
[2021-04-15] MEDS ORDERED: ASPI-1 PO (09:54)
[2021-04-19] MEDS ORDERED: ONDA-83 PO (12:40)
[2021-05-04] MEDS ORDERED: DRON2.5C11 PO (16:20)
[2021-05-11] MEDS ORDERED: LEVO500T4 PO (10:05)
[2021-05-11] MEDS ORDERED: PRED20TA PO (10:06)
[2021-05-19] MEDS ORDERED: LEVO500T4 PO (13:12)
[2021-05-31] MEDS ORDERED: ONDA-83 PO ×2 (10:17→14:17)
[2021-06-03] MEDS ORDERED: SUCR1ORA2 PO (09:48)
[2021-06-09] MEDS ORDERED: LEVO50TA5 PO (09:26)
== END 2021-01-26 ==
LOC: M ONCR 13:15
PROVIDERS: ATTEND General Practice
DX: C79.51 Secondary malignant neoplasm of bone (principal); C34.12 Malignant neoplasm of upper lobe, left bronchus or lung

== ENCOUNTER → 2021-01-05 | Outpatient (POV) | payer MEDICARE, MEDICAID ==
[~2021-01-05] MED LIST changes: +IRBE75TA4 PO; +MECL-86 PO; +METO1TAB32 PO; +PROC10TA4 PO; -PROC10TA5 PO
--- NOTE | 2021-01-07 10:31 | IRPN ---
[facility] IR Progress Note IR Progress Note DATE: Jan 05, 2021 Patient missed her port placement appointment, as she was admitted to the hospital. Patient has been rescheduled for her port placement this week. Allergies Coded Allergies: Sulfa (Sulfonamide Antibiotics) (Verified Allergy, Mild, Rash, 12/14/20) codeine (Verified Adverse Reaction, Mild, N/V, 02/27/19) morphine (Verified Adverse Reaction, Mild, N/V, 02/27/19) oxycodone (Verified Adverse Reaction, Mild, N/V, 02/27/19) PHILIP HERNÁNDEZ MD Jan 07, 2021 10:31
== END ==
LOC: M IRPOV 11:03
PROVIDERS: ATTEND Radiology Diagnostic Radiology
DX: Z53.9 Procedure and treatment not carried out, unspecified reason (principal)

== ENCOUNTER → 2021-01-06 | Outpatient (CLI) | payer MEDICARE, MEDICAID ==
[~2021-01-06] MED LIST changes: +LIDOCAINE 1% MDV 20ML VIAL As Ordered ONE; +MIDAZOLAM INJ 2MG/2ML VIAL (J2250 PER 1MG) As Ordered ONE; +ceFAZolin 2 GM/D5W 50 ML IV BAG (J0690 PER 500MG) As Ordered ONE; +diphenhydrAMINE 50MG/ML VIAL (J1200) As Ordered ONE; +fentaNYL 100 MCG/2 ML INJECTION (J3010) As Ordered ONE
--- NOTE | 2021-01-06 10:13 | IRHP ---
[facility] IR Pre-Procedure H & P General Date of Service: Jan 06, 2021 Procedure: Same Day Surgery Interval History and Physical I have seen the patient and reviewed last H & P performed within 30 days. There is no significant interval change. History of Present Illness Chief Complaint The patient is a 65-year-old female admitted with a reason for visit of Lung Ca. PRE-PROCEDURE DIAGNOSIS: Lung cancer HEART: Normal rate. LUNGS: Normal breathing at rest on baseline oxygen. ASA Classification ASA Classification: III-Severe systemic dis. Mallampati Score: II NPO: Yes Problems with prior sedation: No Obstructive Sleep Apnea: No Plan moderate sedation Allergies Coded Allergies: Sulfa (Sulfonamide Antibiotics) (Verified Allergy, Mild, Rash, 12/14/20) codeine (Verified Adverse Reaction, Mild, N/V, 02/27/19) morphine (Verified Adverse Reaction, Mild, N/V, 02/27/19) oxycodone (Verified Adverse Reaction, Mild, N/V, 02/27/19) Home Medications Scheduled Aspirin (Ecotrin), 81 MG PO DAILY, (Reported) Atorvastatin Calcium (Atorvastatin Calcium), 80 MG PO DAILY, (Reported) Fluticasone Propion/Salmeterol (Advair Hfa 230-21 Mcg Inhaler), 2 PUFF INH BID, (Reported) Gabapentin (Gabapentin), 300 MG PO TID, (Reported) Irbesartan (Irbesartan), 75 MG PO DAILY Levothyroxine Sodium (Levothyroxine Sodium), 75 MCG PO DAILY, (Reported) Omeprazole (Omeprazole), 20 MG PO DAILY, (Reported) Prednisone (Prednisone), 10 MG PO TAPER, (Reported) Scheduled PRN Albuterol Sulfate (Proair Hfa), 2 PUFF INH Q4H PRN for SHORTNESS OF BREATH, (Reported) Meclizine HCl (Meclizine HCl), 25 MG PO Q6HP PRN for dizziness/vertigo Modafinil (Modafinil), 100 MG PO DAILY PRN for NARCOLEPSY, (Reported) Ondansetron HCl (Ondansetron HCl), 4 MG PO Q6H PRN for NAUSEA OR VOMITING, (Reported) Oxycodone HCl (Oxycodone HCl), 5 MG PO 6XD PRN for PAIN LEVEL 5-10, (Reported) Discontinued Medications Amlodipine Besylate (Amlodipine Besylate), 5 MG PO DAILY, (Reported) Irbesartan (Irbesartan), 150 MG PO DAILY, (Reported) Discontinued Reason: Prescription changed Levofloxacin (Levofloxacin), 750 MG PO DAILY@06 Discontinued Reason: Pt states not taking Metoprolol Succinate (Metoprolol Succinate), 50 MG PO DAILY, (Reported) Discontinued Reason: Prescription changed Metoprolol Succinate (Metoprolol Succinate), 1 TAB PO DAILY Discontinued Reason: Pt states not taking VS, I&O, 24H, Fishbone Vital Signs/I&O Vital Signs Date Time Temp Pulse Resp B/P (MAP) Pulse Ox O2 Delivery O2 Flow Rate FiO2 01/06/21 09:58 97.8 92 20 100 Nasal Cannula 2.0 PHILIP HERNÁNDEZ MD Jan 06, 2021 10:13
[2021-01-06 13:00] VITALS: BP 94/55
--- NOTE | 2021-01-11 16:02 | IRPON ---
IR Postoperative Note Date Of Procedure: Jan 06, 2021 Time Of Procedure: 16:00 IR Postoperative Note IR Ultrasound and fluoroscopy guided port placement IR Ultrasound of the neck. IR Moderate sedation. Clinical indication: Lung cancer. Physician: Dr. Zavala. Procedure: The patient was advised of the benefits, risks, and alternatives of the procedure and informed consent was obtained. A time-out was performed with verification of the patient's name, MRN, site of procedure and type of procedure to be performed. The patient was positioned in the supine position on the angiographic table. The site was prepped and draped in the usual sterile fashion. Moderate sedation was performed by the physician including the presence of an independent trained RN who assisted and monitored the patient's level of consciousness and physiologic status. Following the administration of fentanyl and Versed , the physician spent 45 minutes of continuous face to face time with the patient. Ultrasound of the neck reveals a patent and compressible right internal jugular vein. A bed and breakfast cook radiograph reveals hilar adenopathy. The neck and anterior chest wall were anesthetized with lidocaine. The right internal jugular vein was accessed using a microintroducer needle under ultrasound guidance, via a lateral approach. An 018 wire was advanced into the superior vena cava, the needle was removed and a microsheath was placed. An Amplatz wire was then passed into the inferior vena cava. An incision at the internal jugular vein access site and anterior chest wall were made using a scalpel. An incision was made at the anterior chest wall. A small pocket was created using a combination of blunt and sharp dissection. A tunneling device was then used to pass the catheter from the pocket to the neck puncture site. An 8- [employer] Smart power port was then positioned in the pocket. The catheter was then measured and cut. The introducer sheath was exchanged for a peel-away sheath. The catheter was passed through the peel-away sheath into the internal jugular vein and the peel-away sheath was removed. The port tip was positioned at the cavoatrial junction. The port was then accessed with a Solorzano needle. The port flushes and aspirates well. The puncture site in the neck was closed. The chest wall incision was then closed with 2-0 Vicryl and 4-0 Monocryl. Glue and Steri- Strips were applied. A sterile dressing was then applied. The patient tolerated the procedure well and was returned to the PRU in stable condition. Estimated blood loss: <5 ml. Complications: None. Conclusion: 1. Successful placement of an 8-[place] [employer] Smart power port via the right internal jugular vein. The port is ready for immediate use. 2. Patient to follow up in IR clinic in 2 weeks. Thank you for this referral. PHILIP ZAVALA MD Jan 11, 2021 16:02
== END ==
LOC: M IRPRO 09:44
PROVIDERS: ATTEND Specialist
DX: C34.90 Malignant neoplasm of unspecified part of unspecified bronchus or lung (principal); R59.0 Localized enlarged lymph nodes; Z79.82 Long term (current) use of aspirin; Z79.890 Hormone replacement therapy; Z79.899 Other long term (current) drug therapy; Z88.2 Allergy status to sulfonamides; Z88.5 Allergy status to narcotic agent
CPT/HCPCS: 36561; 99152; 99153; C1769; C1788; C1894; J0690; J1200; J1642; J1644; J2250; J3010

== ENCOUNTER → 2021-02-10 | Outpatient (REF) | payer MEDICARE, MEDICAID ==
[~2021-02-10] MED LIST changes: +LEVO750T14 PO; -LIDOCAINE 1% MDV 20ML VIAL As Ordered ONE; -MIDAZOLAM INJ 2MG/2ML VIAL (J2250 PER 1MG) As Ordered ONE; -ceFAZolin 2 GM/D5W 50 ML IV BAG (J0690 PER 500MG) As Ordered ONE; -diphenhydrAMINE 50MG/ML VIAL (J1200) As Ordered ONE; -fentaNYL 100 MCG/2 ML INJECTION (J3010) As Ordered ONE
[2021-02-10 14:04] LABS: HEMATOCRIT 28.3 % (36.0-47.0)
[2021-02-10 14:20] LABS: FERRITIN 329 NG/ML (8-252); IRON (FE) 38 UG/DL (50-170); TOTAL IRON BINDING CAPACITY 224 UG/DL (250-450); VITAMIN B12 LEVEL > 2000 PG/ML (247-911)
== END ==
LOC: M LAB REF 12:13
PROVIDERS: ATTEND Family Medicine
DX: D64.9 Anemia, unspecified (principal)

== ENCOUNTER → 2021-03-03 | Outpatient (CLI) | payer MEDICARE, MEDICAID ==
[~2021-03-03] MED LIST changes: +CEPH500C PO; +DRON2.5C11 PO; +PROHANCE 279.3MG/ML 5ML VIAL As Ordered ONE; +SERT-141 PO
--- NOTE | 2021-03-04 23:33 | REPVR ---
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 Contrast material: PROHANCE; Contrast volume: 10 ml; Contrast route: INTRAVENOUS (IV); COMPARISON: MRI-Brain without Contrast 12/28/2020 7:09 PM FINDINGS: Brain: Mild cerebral volume loss and chronic white matter changes. Encephalomalacia in the right frontal lobe is unchanged. No evidence of an acute infarction. No intra-axial mass or abnormal contrast enhancement. 1.7 x 2.1 x 1.2 cm mass in the sella eccentric to the right extending into the right cavernous sinus is unchanged. Cerebral ventricles: Normal. No ventriculomegaly. Bones/joints: Unremarkable. Paranasal sinuses: Normal as visualized. No acute sinusitis. Mastoid air cells: Normal as visualized. No mastoid effusion. Soft tissues: Unremarkable. IMPRESSION: 1. Stable appearance of pituitary mass. 2. Encephalomalacia in the right frontal lobe. No intra-axial mass or acute findings. Electronically signed by: Martinez Kathleen On 03/04/2021 23:32:15 PM
== END ==
LOC: M RAD 11:13
PROVIDERS: ATTEND General Practice
DX: C34.12 Malignant neoplasm of upper lobe, left bronchus or lung (principal)

== ENCOUNTER → 2021-03-19 | Outpatient (CLI) | payer MEDICARE, MEDICAID ==
[~2021-03-19] MED LIST changes: +ISOVUE-370 76% 100ML VIAL ONE; -PROHANCE 279.3MG/ML 5ML VIAL As Ordered ONE
--- NOTE | 2021-03-19 13:46 | REP ---
INDICATION: SCLC COMPARISON: Multiple the latest 12/14/2020 a noncontrast enhanced exam TECHNIQUE: Standard helical technique after 100 cc of intravenous Isovue 370 FINDINGS: There is soft tissue thickening along the left mediastinum extending from the left upper lobe along the left lateral margin of the aorta and pulmonary artery to the left hilum. The extent of which may are may not have been present on prior exam cannot be said since the prior exam was without contrast. When compared to the latest contrast enhanced exam of 11/24/2020 that soft tissue mass density has decreased significantly. There is no additional form of mediastinal or hilar adenopathy or mass. There are no pleural effusions. There is a small pericardial effusion status quo. The imaged upper abdomen is unchanged. There is no significant change in appearance of the imaged osseous structures. The tip of the MediPort device is seen in the superior vena cava. The imaged upper abdomen shows a right renal cyst unchanged from 04/11/2018, however, now with there appears to be in new enhancing nodule along the base of the cyst which measures approximately 2 cm. This region was poorly imaged on the next latest prior CT examination of the chest of 11/24/2020 and 09/21/2020. There is no prior CT of the abdomen. Evaluation of the lung diallo shows postoperative changes and scattered asymmetric densities all obscured in the left lung on the prior exam from the prior effusion and mass. Findings in the right lung appear stable. IMPRESSION: 1. Improved left lung findings as described above. 2. Persistent abnormal lung field findings which require close follow-up. 3. Concerning enhancing nodule in the right kidney. Follow-up with pre and postcontrast enhanced renal CT. Neoplastic change cannot be ruled out. 4. Other findings as described above. <Electronically signed by Joe Moss > 03/19/21 2331
== END ==
LOC: M PLAIMG 12:25
PROVIDERS: ATTEND Specialist
DX: R91.8 Other nonspecific abnormal finding of lung field (principal); C34.12 Malignant neoplasm of upper lobe, left bronchus or lung

== ENCOUNTER → 2021-03-29 | Outpatient (CLI) | payer MEDICARE, MEDICAID ==
[~2021-03-29] MED LIST changes: -ISOVUE-370 76% 100ML VIAL ONE; +MEMA10TA19 PO; +MEMA1TAB3 PO
[2021-03-29 13:15] LABS: FREE T3 6.2 PG/ML (2.2-4.0); FREE T4 2.03 NG/DL (0.76-1.46); THYROID STIMULATING HORMONE < 0.005 uIU/ML (0.358-3.740)
[2021-03-29 13:17] LABS: TOTAL T3 214.4 NG/DL (60.0-181.0)
== END ==
LOC: M LAB 11:40
PROVIDERS: ATTEND Family Medicine
DX: E05.90 Thyrotoxicosis, unspecified without thyrotoxic crisis or storm (principal)

== ENCOUNTER 2021-03-31 08:42 | Emergency (ER) | payer MEDICARE, MEDICAID ==
[~2021-03-31] VITALS: Ht 152.4 cm; Wt 51.8 kg
[~2021-03-31 08:42] MED LIST changes: -MEMA10TA19 PO; -MEMA1TAB3 PO
--- OUTSIDE RECORDS SUMMARY | 2021-03-31 08:50 | CCD ---
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 Active confirmed 3301591268163 Problem Esophageal dysphagia R13.10 Active confirmed 29606713 Problem Hyperlipidemia E78.5 Active confirmed 36618 004 Problem HARRISON (obstructive sleep apnea) G47.33 Active confirm ed 62227217 Problem Essential hypertension I10 Active confirmed 53920738 Problem Sialadenitis K11.20 Active confirmed 2109534 1 Problem Gastroesophageal reflux disease, esophagitis pre sence not specified K21.9 Active confirmed 423695794 Problem Small cell lung cancer C34.90 Active confirmed 703559142 Problem Neuropathy G62.9 Active confirmed 256596425 Problem Hyperthyroidism E05.90 Active confirmed 3448 6009 Problem Secondary adrenal insufficiency E27.49 Active confi rmed 54295862 Problem Acquired hypothyroidism E03.9 Active confirmed 902739403 Problem Cigarette nicotine dependence in remission F17.211 Active confirmed 138828086 Problem Migraine syndrome G43.909 Active confirmed 3 6550628 Problem History of lung cancer Z85.118 Active confirmed 811167011 ALLERGIES Allergen (clinical drug ingredient) Drug/Non Drug Allergy do cumented on EMR Reaction Allergy Type Onset Date Status Sulfasalazine Sulfa Antibiotics Hives Drug Allergy Ac tive doxycycline Doxycycline Hyclate([facility] Code:[address]-17) Vomiting Dr mayfield Allergy Active ENCOUNTERS from 1955 to 2021-03-29 Encounter Location Date Provider Diagnosis [facility] [address] [place] [address] [place] [address] Mar, Yael Yang IMMUNIZATIONS Vaccine Route Administration Date Status Pneumococcal Adult 0.5mL Pneumovax 23 IM Intramuscular September 20, 2017 Administered SOCIAL HISTORY Tobacco Use: Social History Observation Description Date Details (start date - stop date) Former Smoker Sex Assigned At : Social History Observation Description Sex Assigned At Unknown Education: Question Answer Notes Level of Education: College Audit Question Answer Notes Total Score: 0 Interpretation: Alcohol Education Language: Question Answer Notes Languages spoken: Czech Pentecostal: Question Answer Notes Pentecostal No lutheran beliefs that would impact health care. Domestic Violence: Question Answer Notes Status: Sexual Hx: Question Answer Notes Had sex in the last 12 months (vaginal, oral, or anal)? No Have you ever had an STD? No Drug and Alcohol Question Answer Notes Total Score: 0 Interpretation: No problems reported Alcohol Screening: Question Answer Notes Did you have a drink containing alcohol in the past year? No Points 0 Interpretation Negative Tobacco Use: Question Answer Notes Are you a: former smoker How long has it been since you last smoked? 5-10 years REASON FOR REFERRAL No Information VITAL SIGNS No information MEDICATIONS Medication SIG (Take, Route, Frequency, Duration) Notes Start Da te End Date Status Levothyroxine Sodium 75 MCG TAKE 1 TABLET BY MOUTH ONC E A DAY IN THE MORNING ON AN EMPTY STOMACH for 30 Active Advair HFA 230-21 MCG/ACT 2 puffs Inhalation Twice a day NEW ON [facility] DISCHARGE 12/03/20 Nov, Not-Taking Blood Pressure Cuff - as directed Check on L arm D aily if blood pressure is > 150/xx, otherwise weekly. DX: I10 Dec, Active Trokendi XR 25 MG 2 capsules Orally Once a day/prn Not-Taking amLODIPine Besylate 5 MG 1 tablet Orally Once a day for 30 day(s ) Jan, Active Ipratropium Foster 0.02 % 1 nebulizer Inhalation Twice a day Active predniSONE 5 MG 1 tablet Orally Once a day for 90 days Dec, Active Meclizine HCl 25 MG 1 tablet as needed Orally Once a day for 30 days Active Imitrex 50 MG 1/2 tablet as needed Orally Twice a day Active Blood Pressure Cuff - as directed Arm cuff; Dx I10.0 for 90 day( s) Dec, Active Ventolin HFA 108 (90 Base) MCG/ACT 2 puffs as needed I nhalation every 4 hrs for 50 Active Atorvastatin Calcium 80 MG TAKE ONE TABLET BY MOUTH ONCE A DAY for 30 Active PredniSONE (Ritesh) 10 mg po 40 mg po x 4 days, then 30 mg x 4 days, then 20mg x 4 days, then 10mg x 8 days total of 20 days Nov, Not-Taking Nitroglycerin 0.4 MG as directed Sublingual at on set of chest pain, second in 5 min, ER if not resolving Mar, Active Acetaminophen 325 MG 2 capsule as needed 8 every 4 hrs new o n [facility] DISCHARGE 12/03/20 Nov, Not-Taking Omeprazole 40 MG 1 capsule 30 minutes before morning meal Orally On ce a day Active Aspirin 81 MG 1 tablet Orally Once a day Active Albuterol Sulfate (2.5 MG/3ML) 0.083% 3 ml as needed I nhalation Three times a day Active predniSONE 5 MG 1 tablet Orally Once a day for 90 days Active Gabapentin 300 MG 1 capsule Orally tid for 90 days Active Nystatin 150890 UNIT/ML 4 ml Swish and spit Four times a day for 10 day(s) patient is rinsing her [place] with this bit not swollowing Nov, Active PROCEDURES No Information RESULTS No Results REASON FOR VISIT infusion port MEDICAL (GENERAL) HISTORY Type Description Date Medical History Pituitary tumor s/p surgery x 2, radiation x 1; unsuccessfully treated; MRI yearly with neurosurgery - Dr. 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 Cole Medical History HLD Medical History Hypothyroidism Medical History Small cell lung cancer left upper lobe with mets to left scapula - being treated with chemo, radiation, immunotherapy, [facility] Surgical History pituitary surgery 2003 Surgical History Second pituitary tumor compl icated by L eye blindness and adrenal insufficiency 2004 Surgical History R lung bx complicated with collapsed shayan g and chest tube 06/2012 Surgical History VATS for R lung 07/2012 Surgical History Colonoscopy at [facility] - bruce burks per patient 2016 Surgical History Bronchoscopy with endobronchial ultrasou erin-Dr. Pettit 11/26/2020 Hospitalization History [facility] Hospitalization History [facility] Hospitalization History H1N1 - collapse lung, ICU with intub ation Hospitalization History [facility]-Dyspnea, left lung mass 11/24- Hospitalization History fell and passed out /reaction from c [facility]mo 12/2020 Goals Section No Information Health Concerns No Information MEDICAL EQUIPMENT No Information MENTAL STATUS No Information FUNCTIONAL STATUS No Information ASSESSMENTS No Information PLAN OF TREATMENT Medication Medication Name Sig Start Date Stop Date Blood Pressure Cuff - as directed Arm cuff; Dx I10.0 for 90 day( s) Dec, predniSONE 5 MG 1 tablet Orally Once a day for 90 days Gabapentin 300 MG 1 capsule Orally tid for 90 days Meclizine HCl 25 MG 1 tablet as needed Orally Once a day for 30 days amLODIPine Besylate 5 MG 1 tablet Orally Once a day for 30 day(s ) Jan, Next Appt Details Provider Name:Yael Yang, 2021-04-14 09:30:00 AM, [address] [facility], , [place], [address], Insurance Providers Payer Name Payer Address Payer Phone Insured Name Patient Relati onship to Insured Coverage Start Date Coverage End Date MEDICARE Part A and B [address] [facility] [id number] [place] [id number] [address] [facility] [id number] [place]
--- OUTSIDE RECORDS SUMMARY | 2021-03-31 08:50 | CCD | Continuity of Care Document ---
Author Author [facility] Organization Unknown Address [address] [place] [address] Phone [phone] Care Team Providers Care Web Machine Tender Name Role Phone Reed Dutton M.D. AUT[facility] [phone] Ziggy Cleveland M.D. AUTM [phone] Reed Dutton M.D. [facility] [phone] Social History Type Date Description Comments Sex Unknown Medications Active Medications SIG Qnty Indications Ordering Provide r Date Fish Oil 1000mg Capsules take two capsules twice a day 360caps [facility]gy [facility] 03/16/[address] 1 by mouth every day 90tabs Ziggy Cleveland [facility] 03/16/20 21 Sertraline HCL 50mg Tablets Ziggy Cleveland [facility] 03/16/2021 Prednisone 5mg Tablets one tablet by mouth daily Ziggy Cleveland [facility] 03/16/20 21 Ondansetron 4mg Tablets Dispers take two tablets by mouth daily Ziggy Cleveland [facility] 1 Prochlorperazine Maleate 10mg Tabl ets take one every 8 hours as needed Ziggy Cleveland [facility] 03/16/2021 Atorvastatin Calcium 80mg Tablets Take One Tablet By Mouth Once A Day Unknown Gabapentin 300mg Capsules Take One Capsule By Mouth Three Times A Day Unknown Omeprazole 20mg Capsules DR Take 1 Capsule By Mouth Once A Day Unknown Amlodipine Besylate 5mg Tablets Take One Tablet By Mouth Every Day Unknown Ventolin HFA 108(90Base) mcg/Act A erosol Inhale Two Puffs By Mouth Every 4 Hours as Needed Unknown Oxycodone HCL 5mg Tablets Unknown Multivitamin Adult Tablets Unknown History Medications Prednisone 10mg Tablets Ziggy Cleveland [facility] 02/08/2021 - 03/16/2021 Medications Administered in Office Medication SIG Qnty Indications Ordering Provider Date Dobutamine IV Injection 250MG Inj ection Ziggy Cleveland [facility] 08/08/19 21 Technetium TC 99M Sestamibi Injection Ziggy Cleveland [facility] 08/07/2020 Vital Signs Date Vital Result Comment 03/16/2021 1:14pm Height 60 inches 5'0" Weight 113.00 lb BMI (Body Mass Index) 22.1 kg/m2 Body Temperature 97.3 F BP Systolic 111 mmHg BP Diastolic 75 mmHg Heart Rate 91 /min O2 % BldC Oximetry 99 % @ 2L 02/08/2021 3:46pm Height 60 inches 5'0" Weight 114.00 lb BMI (Body Mass Index) 22.3 kg/m2 Body Temperature 93.0 F BP Systolic 128 mmHg BP Diastolic 90 mmHg Heart Rate 93 /min O2 % BldC Oximetry 97 % 2l Procedures Date Code Description Status 03/16/2021 92820 Echocardiogram, Complete Complet ed 02/08/2021 85608 Office/Outpatient Established Mo d MDM 30-39 Min Completed 02/08/2021 68614 EKG Completed Encounters Type Date Location Provider Dx Diagnosis Office Visit 02/08/2021 3:45p Medical Building [facility] 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 02/08/2021 I11.9 Hypertensive heart disease witho ut heart failure Z[facility]gy [facility] 02/08/2021 D02.22 Carcinoma in situ of left bronch us and lung [facility]gy [facility] 02/08/2021 I49.49 Other premature depolarization M rosangela Cleveland [facility]
--- OUTSIDE RECORDS SUMMARY | 2021-03-31 08:51 | CCD ---
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 Active confirmed 9699079207366 Problem Esophageal dysphagia R13.10 Active confirmed 04803115 Problem Secondary adrenal insufficiency E27.49 Active confi rmed 89184237 Problem Neuropathy G62.9 Active confirmed 490316039 Problem Essential hypertension I10 Active confirmed 63376382 Problem Gastroesophageal reflux disease, esophagitis pre sence not specified K21.9 Active confirmed 105426897 Problem Hyperlipidemia E78.5 Active confirmed 00178 004 Problem Acquired hypothyroidism E03.9 Active confirmed 616868173 Problem HARRISON (obstructive sleep apnea) G47.33 Active confirm ed 73020458 Problem Sialadenitis K11.20 Active confirmed 7110782 1 Problem Cigarette nicotine dependence in remission F17.211 Active confirmed 333474152 Problem Migraine syndrome G43.909 Active confirmed 3 1479820 Problem History of lung cancer Z85.118 Active confirmed 692012329 ALLERGIES Allergen (clinical drug ingredient) Drug/Non Drug Allergy do cumented on EMR Reaction Allergy Type Onset Date Status Sulfa (for allergy use only) Hives Drug Allergy Active doxycycline Doxycycline Hyclate([facility] Code:[address]-76) Vomiting Dr mayfield Allergy Active ENCOUNTERS from 1955 to 2021-01-06 Encounter Location Date Provider Diagnosis [facility] Ana [address] [phone] [place] [address] Dec, Yael Yang IMMUNIZATIONS Vaccine Route Administration Date [...] Education Language: Question Answer Notes Languages spoken: Argentine Yazdanism: Question Answer Notes Yazdanism No baptist beliefs that would impact health care. Domestic [...] Notes Start Da te End Date Status Nystatin 382950 UNIT/ML 4 ml Swish and spit Four times a day for 10 day(s) Nov, Active Irbesartan 75 MG 1 tablet Orally Once a day Active Omeprazole 40 MG 1 capsule 30 minutes before morning meal Orally On ce a day Active Albuterol Sulfate (2.5 MG/3ML) 0.083% 3 ml as needed I nhalation Three times a day Active Advair HFA 230-21 MCG/ACT 2 puffs Inhalation Twice a day NEW ON [facility] DISCHARGE 12/03/20 Nov, Active Blood Pressure Cuff - as directed Check on L arm D aily if blood pressure is > 150/xx, otherwise weekly. DX: I10 Dec, Active Trokendi XR 25 MG 2 capsules Orally Once a day/prn Active Nitroglycerin 0.4 MG as directed Sublingual at on set of chest pain, second in 5 min, ER if not resolving Mar, Active PredniSONE (Ritesh) 10 mg po 40 mg po x 4 days, then 30 mg x 4 days, then 20mg x 4 days, then 10mg x 8 days total of 20 days Nov, Active Atorvastatin Calcium 80 MG TAKE ONE TABLET BY MOUTH ONCE A DAY for 30 Active Imitrex 50 MG 1/2 tablet as needed Orally Twice a day Active Gabapentin 300 MG 1 capsule Orally Three times a day for 90 Active Acetaminophen 325 MG 2 capsule as needed 8 every 4 hrs new o n [facility] DISCHARGE 12/03/20 Nov, Active Levothyroxine Sodium 75 MCG TAKE 1 TABLET BY MOUTH ONC E A DAY IN THE MORNING ON AN EMPTY STOMACH for 30 Active Aspirin 81 MG 1 tablet Orally Once a day Active Ipratropium [place] 0.02 % 1 nebulizer Inhalation Twice a day Active Ventolin HFA 108 (90 Base) MCG/ACT 2 puffs as needed I nhalation every 4 hrs for 50 Active PROCEDURES No Information RESULTS No Results REASON FOR VISIT 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 Pettit 11/26/2020 Hospitalization History [facility] Hospitalization History [facility] Hospitalization History H1N1 - collapse lung, ICU with intub ation Hospitalization History [facility]-Dyspnea, left lung mass 11/24- Goals Section No Information Health Concerns No Information MEDICAL EQUIPMENT No Information MENTAL STATUS No Information FUNCTIONAL STATUS No Information ASSESSMENTS Encounter Date Diagnosis Assessment Notes Treatment Notes Treatm ent Clinical Notes Dec, Other Discussion with patient about recent discharge from [facility]. Patient reports that she is just finished receiving radiation, and now will start chemotherapy. Medication reconciliation completed. Patient reports that she lives alone with her and her son, walks with a walker and a cane, and has a Home Health Nurse and a PT/OT coming to see her. Patient reports that she is on oxygen 2 liters 19/12 . Patient is receiving a port placement tomorrow. Patient aware of upcoming appt with Jaleesa Albaro on Monday01/08/21. Denies any further questions or concerns at this time. PLAN OF TREATMENT Next Appt Details Provider Name:Velia Irvin, 2021-01-08 10:0 0:00 AM, [address], , [place], [address], Insurance Providers Payer Name Payer Address Payer Phone Insured Name Patient Relati onship to Insured Coverage Start Date Coverage End Date MEDICAID [place] [address] [facility] [id number] [place] MEDICARE Part A and B [address] [facility] [phone] [place]
--- OUTSIDE RECORDS SUMMARY | 2021-03-31 08:51 | CCD ---
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 Active confirmed 1730687219148 Problem Esophageal dysphagia R13.10 Active confirmed 98725367 Problem Secondary adrenal insufficiency E27.49 Active confi rmed 89990060 Problem Neuropathy G62.9 Active confirmed 676772460 Problem Essential hypertension I10 Active confirmed 70801847 Problem Gastroesophageal reflux disease, esophagitis pre sence not specified K21.9 Active confirmed 610196625 Problem Hyperlipidemia E78.5 Active confirmed 88075 004 Problem Acquired hypothyroidism E03.9 Active confirmed 480297462 Problem HARRISON (obstructive sleep apnea) G47.33 Active confirm ed 86719435 Problem Sialadenitis K11.20 Active confirmed 7352008 1 Problem Cigarette nicotine dependence in remission F17.211 Active confirmed 425164142 Problem Migraine syndrome G43.909 Active confirmed 3 6544940 Problem History of lung cancer Z85.118 Active confirmed 333431083 ALLERGIES Allergen (clinical drug ingredient) Drug/Non Drug Allergy do cumented on EMR Reaction Allergy Type Onset Date Status Sulfa (for allergy use only) Hives Drug Allergy Active doxycycline Doxycycline Hyclate([facility] Code:[address]-77) Vomiting Dr mayfield Allergy Active ENCOUNTERS from 1955 to 2020-12-31 Encounter Location Date Provider Diagnosis [facility] Ana [address] [facility] [phone] [place] [address] Dec, Yael Yang IMMUNIZATIONS Vaccine Route Administration [...] Education Language: Question Answer Notes Languages spoken: Barbadian Voodoo: Question Answer Notes Voodoo No tenriism beliefs that would impact health care. Domestic [...] Notes Start Da te End Date Status Metoprolol Succinate ER 100 MG 1 tablet Orally Once a day for 90 Unknown Mucinex 600 MG 1 tablet as needed Orally every 12 hrs new on [facility] 12/03/20 Nov, Active Irbesartan 150 MG 1 tablet Orally Once a day Active Ventolin HFA 108 (90 Base) MCG/ACT 2 puffs as needed I nhalation every 4 hrs for 50 Active Nystatin 610901 UNIT/ML 4 ml Swish and spit Four times a day for 10 day(s) Nov, Active Ipratropium [place] 0.02 % 1 nebulizer Inhalation Twice a day Active Trokendi XR 25 MG 2 capsules Orally Once a day Active Nitroglycerin 0.4 MG as directed Sublingual at on set of chest pain, second in 5 min, ER if not resolving Mar, Active Albuterol Sulfate (2.5 MG/3ML) 0.083% 3 ml as needed I nhalation Three times a day Active Gabapentin 300 MG 1 capsule Orally Three times a day for 90 Active PredniSONE (Ritesh) 10 mg po 40 mg po x 4 days, then 30 mg x 4 days, then 20mg x 4 days, then 10mg x 8 days total of 20 days Nov, Active amLODIPine Besylate 5 MG 1 tablet Orally Once a day for 90 Active Blood Pressure Cuff - as directed Check on L arm D aily if blood pressure is > 150/xx, otherwise weekly. DX: I10 Dec, Active Omeprazole 40 MG 1 capsule 30 minutes before morning meal Orally On ce a day Active Aspirin 81 MG 1 tablet Orally Once a day Active Advair HFA 230-21 MCG/ACT 2 puffs Inhalation Twice a day NEW ON [facility] DISCHARGE 12/03/20 Nov, Active Levothyroxine Sodium 75 MCG TAKE 1 TABLET BY MOUTH ONC E A DAY IN THE MORNING ON AN EMPTY STOMACH for 30 Active Atorvastatin Calcium 80 MG TAKE ONE TABLET BY MOUTH ONCE A DAY for 30 Active Imitrex 50 MG 1/2 tablet as needed Orally Twice a day Active Acetaminophen 325 MG 2 capsule as needed 8 every 4 hrs new o n [facility] DISCHARGE 12/03/20 Nov, Active PROCEDURES No Information RESULTS No Results REASON FOR VISIT no show MEDICAL (GENERAL) HISTORY Type Description Date Medical [...] predn isone Medical History Occipital neuralgia - [facility] Neuro Medical History COPD Medical History Chronic [...] R lung 07/2012 Surgical History Colonoscopy at [facility] - bruce l per patient 2015 Surgical History Bronchoscopy with endobronchial ultrasou nd-Dr. Pettit 11/26/2020 Hospitalization History [facility] Hospitalization History [facility] Hospitalization History H1N1 - collapse lung, ICU with [facility] Hospitalization History [facility]-Dyspnea, left lung mass 11/24- Goals Section No Information Health Concerns No Information MEDICAL EQUIPMENT No Information MENTAL STATUS No Information FUNCTIONAL STATUS No Information ASSESSMENTS No Information PLAN OF TREATMENT Medication Medication Name Sig Start Date Stop Date Levothyroxine Sodium 75 MCG TAKE 1 TABLET BY MOUTH ONC E A DAY IN THE MORNING ON AN EMPTY STOMACH for 30 Insurance Providers Payer Name Payer Address Payer Phone Insured Name Patient Relati onship to Insured Coverage Start Date Coverage End Date MEDICARE Part A and B [address] [facility] [phone] [place] self MEDICAID [employer] [address] [facility] [id number] [place] self
--- OUTSIDE RECORDS SUMMARY | 2021-03-31 08:51 | CCD ---
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 Active confirmed 1632744047998 Problem Esophageal dysphagia R13.10 Active confirmed 56751982 Problem Secondary adrenal insufficiency E27.49 Active confi rmed 77527312 Problem Neuropathy G62.9 Active confirmed 939157697 Problem Essential hypertension I10 Active confirmed 71984938 Problem Gastroesophageal reflux disease, esophagitis pre sence not specified K21.9 Active confirmed 267702406 Problem Hyperlipidemia E78.5 Active confirmed 89973 004 Problem Acquired hypothyroidism E03.9 Active confirmed 316599782 Problem HARRISON (obstructive sleep apnea) G47.33 Active confirm ed 91117075 Problem Sialadenitis K11.20 Active confirmed 6916399 1 Problem Cigarette nicotine dependence in remission F17.211 Active confirmed 679588698 Problem Migraine syndrome G43.909 Active confirmed 3 6932859 Problem History of lung cancer Z85.118 Active confirmed 878307863 ALLERGIES Allergen (clinical drug ingredient) Drug/Non Drug Allergy do cumented on EMR Reaction Allergy Type Onset Date Status Sulfa (for allergy use only) Hives Drug Allergy Active doxycycline Doxycycline Hyclate([facility] Code:[address]-60) Vomiting Dr mayfield Allergy Active ENCOUNTERS from 1955 to 2021-01-08 Encounter Location Date Provider Diagnosis [facility] Ana [address] [facility] [phone] [place] [address] Dec, Velia Irvin IMMUNIZATIONS Vaccine Route Administration Date Status Pneumococcal [...] Education Language: Question Answer Notes Languages spoken: Iranian Mandaen: Question Answer Notes Mandaen No gnosticism beliefs that would impact health care. Domestic [...] Start Da te End Date Status Nystatin 418645 UNIT/ML 4 ml Swish and spit Four [...] puffs Inhalation Twice a day NEW ON [facility] DISCHARGE 12/03/20 Nov, Active Blood Pressure [...] 8 every 4 hrs new o n [facility] DISCHARGE 12/03/20 Nov, Active Levothyroxine Sodium 75 MCG TAKE 1 TABLET BY MOUTH ONC E A DAY IN THE MORNING ON AN EMPTY STOMACH for 30 Active Aspirin 81 MG 1 tablet Orally Once a day Active Ipratropium [place] 0.02 % 1 nebulizer Inhalation Twice a day Active Ventolin HFA 108 (90 Base) MCG/ACT 2 puffs as needed I nhalation every 4 hrs for 50 Active PROCEDURES No Information RESULTS No Results REASON FOR VISIT No show MEDICAL (GENERAL) HISTORY Type Description Date [...] predn isone Medical History Occipital neuralgia - [facility] Neuro Medical History COPD Medical History [...] R lung 07/2012 Surgical History Colonoscopy at [facility] - bruce l per patient 2015 Surgical History Bronchoscopy with endobronchial ultrasou erin-Dr. Pettit 11/26/2020 Hospitalization History [facility] Hospitalization History [facility] Hospitalization History H1N1 - collapse lung, ICU with intub ation Hospitalization History [facility]-Dyspnea, left lung mass 11/24- Goals Section No Information Health Concerns No Information MEDICAL EQUIPMENT No Information MENTAL STATUS No Information FUNCTIONAL STATUS No Information ASSESSMENTS No Information PLAN OF TREATMENT No Information Insurance Providers Payer Name Payer Address Payer Phone Insured Name Patient Relati onship to Insured Coverage Start Date Coverage End Date MEDICARE Part A and B [address] [facility] [phone] [place] MEDICAID [employer] [address] [facility] [id number] [place] self
--- OUTSIDE RECORDS SUMMARY | 2021-03-31 08:51 | CCD ---
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 Active confirmed 5573123612683 Problem Esophageal dysphagia R13.10 Active confirmed 28767597 Problem Secondary adrenal insufficiency E27.49 Active confi rmed 27924709 Problem Neuropathy G62.9 Active confirmed 094936127 Problem Essential hypertension I10 Active confirmed 63211897 Problem Gastroesophageal reflux disease, esophagitis pre sence not specified K21.9 Active confirmed 882747009 Problem Hyperlipidemia E78.5 Active confirmed 82055 004 Problem Acquired hypothyroidism E03.9 Active confirmed 412300767 Problem HARRISON (obstructive sleep apnea) G47.33 Active confirm ed 53863357 Problem Sialadenitis K11.20 Active confirmed 6803435 1 Problem Cigarette nicotine dependence in remission F17.211 Active confirmed 648465808 Problem Migraine syndrome G43.909 Active confirmed 3 4235333 Problem History of lung cancer Z85.118 Active confirmed 117937278 ALLERGIES Allergen (clinical drug ingredient) Drug/Non Drug Allergy do cumented on EMR Reaction Allergy Type Onset Date Status Sulfa (for allergy use only) Hives Drug Allergy Active doxycycline Doxycycline Hyclate([facility] Code:[address]-62) Vomiting Dr mayfield Allergy Active ENCOUNTERS from 1955 to 2021-01-19 Encounter Location Date Provider Diagnosis [facility] Ana [address] [facility] [phone] [place] [address] Dec, Yael Yang IMMUNIZATIONS Vaccine Route Administration [...] Education Language: Question Answer Notes Languages spoken: [place] Samaritan: Question Answer Notes Samaritan No hindu beliefs that would impact health care. Domestic [...] Notes Start Da te End Date Status predniSONE 5 MG 1 tablet Orally Once a day for 90 days Dec, Active Nystatin 795090 UNIT/ML 4 ml Swish and spit Four times a day for 10 day(s) Nov, Active Albuterol Sulfate (2.5 MG/3ML) 0.083% 3 ml as needed I nhalation Three times a day Active Omeprazole 40 MG 1 capsule 30 minutes before morning meal Orally On ce a day Active Gabapentin 300 MG 1 capsule Orally Three times a day for 90 Active Advair HFA 230-21 MCG/ACT 2 puffs Inhalation Twice a day NEW ON [facility] DISCHARGE 12/03/20 Nov, Active Blood Pressure Cuff [...] as needed Orally Twice a day Active Ventolin HFA 108 (90 Base) MCG/ACT 2 puffs as needed I nhalation every 4 hrs for 50 Active Acetaminophen 325 MG 2 capsule as needed 8 every 4 hrs new o n [facility] DISCHARGE 12/03/20 Nov, Active Levothyroxine Sodium 75 MCG TAKE 1 TABLET BY MOUTH ONC E A DAY IN THE MORNING ON AN EMPTY STOMACH for 30 Active Aspirin 81 MG 1 tablet Orally Once a day Active Ipratropium [place] 0.02 % 1 nebulizer Inhalation Twice a day Active Irbesartan 75 MG 1 tablet Orally Once a day Active PROCEDURES No Information RESULTS No Results REASON FOR VISIT script forprednisone 5 mg. MEDICAL (GENERAL) HISTORY Type Description Date Medical [...] predn isone Medical History Occipital neuralgia - [facility] Neuro Medical History COPD Medical History Chronic [...] R lung 07/2012 Surgical History Colonoscopy at [facility] - bruce burks per patient 2015 Surgical History Bronchoscopy with [...] Medication Name Sig Start Date Stop Date Gabapentin 300 MG 1 capsule Orally Three times a day for 90 predniSONE 5 MG 1 tablet Orally Once a day for 90 days Dec, 021 Insurance Providers Payer Name Payer Address Payer Phone Insured Name Patient Relati onship to Insured Coverage Start Date Coverage End Date MEDICAID [employer] [address] [facility] [id number] [place] MEDICARE Part A and B [address] [facility] [id number] [phone] [place]
--- OUTSIDE RECORDS SUMMARY | 2021-03-31 08:51 | CCD | Summary of Care ---
Author Author [facility] Organization [facility] Address Unknown Phone Unavailable Care Team Providers Care Paper Twister Name Role Phone Yael Yang MD PCP Reason for Visit * Reason Comments New Patient left shoulder lesion Encounter Details Care Team Description Date Type Department Chencho Estrella MD [address] [place] [id number] [phone] Soft tissue mass (Primary Dx); Bone lesion; Lung mass; Pituitary adenoma 01/11/2021 Office Visit [facility] , [facility] [address] [place] [address] Allergies Comments Active Allergy Reactions Severity Noted Date Nightmares Codeine 01/04/2018 vomiting Morphine And Related 01/04/2018 shakes Oxycodone 01/04/2018 Sulfa Antibiotics Hives 01/02/2018 documented as of this encounter (statuses as of 01/11/2021) Medications End Date Status Medication Sig Dispensed Refills Start Date Active gabapentin (NEURONTIN) Take 300 mg 0 300 MG capsule by mouth Three times daily Active nitroglycerin (NITROSTAT) Place 0.4 mg 0 0.4 MG SL tablet under the tongue at onset of chest pain. Then take 1 tablet by mouth in 5 minutes. Go to ER if still persistent. Active predniSONE (DELTASONE) 5 Take 5 mg by 0 MG tablet mouth daily Active amlodipine (NORVASC) 5 MG Take 5 mg by 0 06/1 2/201 tablet mouth daily 8 Active atorvastatin (LIPITOR) 40 Take 40 mg by 0 /1 2/201 MG tablet mouth daily 8 Active clopidogrel (PLAVIX) 75 Take 75 mg by 0 06/12/ 201 MG tablet mouth daily 8 Active albuterol (VENTOLIN HFA) Inhale 2 0 108 (90 Base) MCG/ACT puffs into inhaler the lungs every 6 (six) hours as needed Active omeprazole (PRILOSEC OTC) Take 20 mg by 0 20 MG tablet mouth one to two times a day. Active aspirin 81 MG tablet Take 81 mg by 0 mouth daily Active fluticasone-salmeterol Inhale 2 0 (ADVAIR HFA) 115-21 puffs into MCG/ACT inhaler the lungs Two Times Daily Active sumatriptan (IMITREX) 25 Take 50 mg by 0 MG tablet mouth as needed for Migraine Active tizanidine (ZANAFLEX) 2 Take 2 mg by 0 MG tablet mouth every 6 (six) hours as needed Active verapamil (CALAN) 40 MG TAKE 1 TABLET 90 tablet 2 tabletIndications: BY MOUTH 9 Hemicrania continua EVERY 8 HOURS documented as of this encounter (statuses as of 01/11/2021) Active Problems Problem Noted Date Pituitary adenoma 03/29/2018 Headache 01/03/2018 documented as of this encounter (statuses as of 01/11/2021) Social History Date Tobacco Use Types Packs/Day Years Used Former Smoker Smokeless Tobacco: Never Used Comments Alcohol Use Standard Drinks/Week No 0 (1 standard drink = 0.6 o z pure alcohol) Sex Assigned at Date Recorded Not on file Date Recorded COVID-19 Exposure Response 01/11/2021 9:50 AM EDT In the last month, have you been in contact with No / Unsure someone who was confirmed or suspected to have Coronavirus / COVID-19? documented as of this encounter Last Filed Vital Signs Reading Time Taken Comments Vital Sign - - Blood Pressure - - Pulse - - Temperature - - Respiratory Rate - - Oxygen Saturation - - Inhaled Oxygen Concentration 54.4 kg (120 lb) 01/11/2021 10:29 AM EDT Weight 152.4 cm (5') 01/11/2021 10:29 AM EDT Height 23.44 01/11/2021 10:29 AM EDT Body Mass Index documented in this encounter Patient Instructions * Patient Instructions* Anu Watts LPN - 01/11/2021 9:45 AM EDT The patient is instructed to call the office with any question/concerns or if sy mptoms worsen. documented in this encounter Progress Notes * Marc Crisostomo MD - 01/11/2021 9:45 AM EDT Images from the original note were not included. ADDENDUM: Patient also seen by resident physician and examined under my supervis ion. Appiah portions of the history and examination were repeated by me, and the e ntire resident note was reviewed. Modifications to that evaluation are detailed here. Changes to the note are made within the substance of the original reside nt note. Chief Complaint Patient presents with New Patient left shoulder lesion NEW PATIENT, INITIAL ENCOUNTER, BONE LESION Episode of Care: Initial Symptoms: Chronic Anatomical Site: Shoulder Laterality: Left Injury Cause and Place of Occurrence: N/A Fracture Healing Status: N/A CC: Bone lesion left shoulder HPI: Nasrin is a 65 y.o. year/old White or female referred for evaluat ion of a left shoulder lesion. She reports that she has had left shoulder pain f or at least 3 months. The pain started around the time that she was pulling a 7 5 pound bedframe. The pain has been getting worse progressively since that time . Pain is worse with activity and range of motion of the extremity. Treatment thus far has consisted of oxycontin which helps with the pain. History of preceding trauma was present: Pain began shortly after pulling a heav y bed frame. History of prior known bone lesions/cancer was present: patient diagnosed with s tage IV lung cancer around 3 months ago. Work-up thus far has consisted of x-rays, MRI of the involved site. Staging work-up thus far has consisted of PET-CT. PMHx: Reviewed on current visit information sheet. Past Medical History: Diagnosis Date Arthritis Asthma Cancer stage 4 lung Depression Hypertension Pituitary disease Seizures Stroke Past Surgical History: Procedure Laterality Date BRAIN TUMOR EXCISION LUNG SURGERY Current Outpatient Medications: albuterol (VENTOLIN HFA) 108 (90 Base) MCG/ACT inhaler, Inhale 2 puffs i nto the lungs every 6 (six) hours as needed, Disp: , Rfl: amlodipine (NORVASC) 5 MG tablet, Take 5 mg by mouth daily , Disp: , Rfl : aspirin 81 MG tablet, Take 81 mg by mouth daily, Disp: , Rfl: atorvastatin (LIPITOR) 40 MG tablet, Take 40 mg by mouth daily , Disp: , Rfl: clopidogrel (PLAVIX) 75 MG tablet, Take 75 mg by mouth daily , Disp: , R fl: fluticasone-salmeterol (ADVAIR HFA) 115-21 MCG/ACT inhaler, Inhale 2 puf fs into the lungs Two Times Daily, Disp: , Rfl: gabapentin (NEURONTIN) 300 MG capsule, Take 300 mg by mouth Three times daily , Disp: , Rfl: nitroglycerin (NITROSTAT) 0.4 MG SL tablet, Place 0.4 mg under the tongu e at onset of chest pain. Then take 1 tablet by mouth in 5 minutes. Go to ER if still persistent., Disp: , Rfl: omeprazole (PRILOSEC OTC) 20 MG tablet, Take 20 mg by mouth one to two t imes a day., Disp: , Rfl: predniSONE (DELTASONE) 5 MG tablet, Take 5 mg by mouth daily , Disp: , R fl: sumatriptan (IMITREX) 25 MG tablet, Take 50 mg by mouth as needed for M igraine, Disp: , Rfl: tizanidine (ZANAFLEX) 2 MG tablet, Take 2 mg by mouth every 6 (six) hour s as needed, Disp: , Rfl: verapamil (CALAN) 40 MG tablet, TAKE 1 TABLET BY MOUTH EVERY 8 HOURS, Di sp: 90 tablet, Rfl: 2 Allergies Allergen Reactions Codeine Nightmares Morphine And Related vomiting Oxycodone shakes Sulfa Antibiotics Hives PSoHx: Social History Tobacco Use Smoking status: Former Smoker Smokeless tobacco: Never Used Substance Use Topics Alcohol use: No Drug use: No FHx: Cancer-related family history includes Cancer in her mother. Family History Problem Relation Age of Onset Cancer Mother ROS: Comprehensive review of systems completed by patient and reviewed by me. P ertinent positive findings included in HPI. Otherwise negative. PHYSICAL EXAM: Healthy-appearing, well-developed, well-nourished, alert and orie nted x person/place/time. Mood showing no evidence of agitation, anxiety, or dep ression. HEENT: Normocephalic and atraumatic to inspection and palpation. Sclerae anicter ic. Extraocular muscles intact. No conjunctivitis. Pupils equal, round, and reac tive to light and accommodation. Oropharynx clear with no lesions. Mucous membra paulie pink and moist. Hearing within normal limits. Intact to finger rub. NECK: No palpable thyromegaly, adenopathy, or masses. HEART: Regular rate and rhythm without murmurs. LUNGS: Decreased breath sounds on left side. Wheezes bilaterally. On supplementa l oxygen. ABDOMEN: No hepatosplenomegaly or soft tissue masses. Soft and nontend er. LYMPH: No cervical, epitrochlear, axillary, inguinal, or popliteal adenopath y. SKIN: No rashes or jaundice to inspection. No nodules to palpation. PERIPHERAL VASCULAR EXAM: No cyanosis, clubbing, or edema in the distal extremit ies. Pulses are palpable distally. MUSCULOSKELETAL: Skin intact. No visible masses appreciated. Tender to palpation diffusely abou t the shoulder. Active and passive range of motion are both limited due to jessica ent's pain. Sensation is intact in the median, radial, and ulnar nerve distribu tions. AIN, PIN, and ulnar nerve motor function is intact. RADIOLOGY: All films were reviewed by myself with the patient/family members. Imaging shows a heterogenous lesion that is dark on T1 and bright on T2 sequence s. The lesion involves the bony glenoid as well as the surrounding soft tissues. It shows marked uptake on PET CT imaging. XR Left Shoulder 10/16/20 MR Left Shoulder 11/19/[address] 12/07/20 ASSESSMENT: 1. Painful bone lesion of the left shoulder: Aggressive appearing lesion with e xtension into soft tissues. DDX includes mets, myeloma, lymphoma, and less likel y primary bone sarcoma such as chondrosarcoma, osteosarcoma, fibrosarcoma, and M FH, among others. Metastatic carcinoma is the most likely diagnosis in this sit uation given the patient's history. At this point, patient has not had a biopsy to prove bony metastasis. However, it sounds as though diagnosis is not the iss ue here as much as treatment. Since its not a long bone, there is no "risk of f racture" issue either. 2. CO-MORBIDITIES: Past Medical History: Diagnosis Date Arthritis Asthma Cancer stage 4 lung Depression Hypertension Pituitary disease Seizures Stroke These medical conditions and their treatment have to be considered in the decisi on-making regarding the treatment of this patient. Before the patient can be op erated on, they will need medical clearance from their PCP or a comparable inter tsaile health center. PLAN: Discussed the results of imaging with the patient, including the differen tial diagnosis. The only way to arrive at a specific diagnosis is to obtain tiss ue for histologic review. Options to obtain tissue for a definitive diagnosis in clude image-guided biopsy per interventional radiology or open biopsy in the ope rating room. The former would be done as a stand-alone procedure, and then we w ould discuss the results with the patient/family before deciding upon the next p patrizia of action. The latter, open biopsy in the operating room, would allow us hines e opportunity to potentially proceed to definitive treatment at the same time, w hich could include curetting (scraping) the lesion out, packing it with graft ma terial, and even potentially placing internal fixation (plates/screws or intrame dullary nail device) to protect the bone from breaking during the healing period . However, in this situation, I think the diagnosis is pretty obvious, and doing a needle biopsy is really not going to change her management. Unless the local o ncology team feels the need to prove this histologically is in fact metastatic c arcinoma, I think we can forego that. If they feel they need a diagnosis, they can do an image guided needle biopsy locally. From the standpoint of treatment in palliation with pain control of the left sca pula, I do not see an orthopedic procedure that would have benefits that outweig h the risks. This involves much of the scapula and the associated soft tissues, and if it were a primary sarcoma, we would do a scapulectomy. I do not think t here is anything short of that that would help her, and there is no indication t o do a scapulectomy in the setting of metastatic lung carcinoma. Its not going to prolong her life. Her recovery would be prolonged. Her function would be po or. I think if she has external beam radiation, she might do well with this. Syl bahena will see her back, the latest, in 4 months with left scapular x-rays. CC: Yael Yang MD Encounter Diagnoses Name Primary? Soft tissue mass Yes Bone lesion Lung mass Pituitary adenoma Orders Placed This Encounter XR Scapula Left Summary of the information reviewed: 1. History, 2. Physical exam, 3. X-rays, 4. Prior notes documented in this encounter Plan of Treatment Care Team Description Date Type Specialty Chencho Estrella MD [address] [address] [phone] 05/14/2021 Office Visit Orthopedic Surgery Order Schedule Name Type Priority Associated Diag noses Expected: 01/11/2021, Expires: 3 XR Scapula Left Imaging Routine Soft tissue ma ss Bone lesion Lung mass Pituitary adenoma Health Maintenance Due Date Last Done Comments MMR Vaccines (1 of 1 - 1955 Standard series) Varicella Vaccines (1 of 1955 2 - 2-dose childhood series) Breast Cancer Screening 2 2004 years Colon Cancer Screening 10 2004 yrs Zoster Vaccines (1 of 2) 2004 Osteoporosis Screening 2 2019 yr Pneumococcal Vaccine: 65+ 2019 Years (1 of 1 - PPSV23) DTaP,Tdap,and Td Vaccines 05/23/2020 04/25/2020 (2 - Td or Tdap) Influenza Vaccine 02/26/2021 Hepatitis C Screening (B. Completed 01/03/2018, [id number]) 01/02/2018 HIB Vaccines Aged Out No longer eligible based on patient's age to complete this topic Hepatitis A Vaccines Aged Out No longer eligibl e based on patient's age to complete this topic Hepatitis B Vaccines Aged Out No longer eligibl e based on patient's age to complete this topic IPV Vaccines Aged Out No longer eligible based on patient's age to complete this topic Pneumococcal Vaccine: Aged Out No longer eligib le based on patient's age to Pediatrics (0 to 5 Years) complete this topic and At-Risk Patients (6 to 64 Years) documented as of this encounter Results Not on filedocumented in this encounter Visit Diagnoses Diagnosis Soft tissue mass - Primary Disorders of soft tissue, unspecified Bone lesion Disorder of bone and cartilage, unspeci fied Lung mass Swelling, mass, or lump in chest Pituitary adenoma Benign neoplasm of pituitary gland and craniopharyngeal duct (pouch) documented in this encounter
--- OUTSIDE RECORDS SUMMARY | 2021-03-31 08:51 | CCD | Continuity of Care Document ---
Author Author [facility] Organization Unknown Address [address] [place] [address] Phone [phone] Care Team Providers Care Utility Operator Yarn Name Role Phone Reed Dutton M.D. [facility] [phone] Ziggy Cleveland M.D. [facility] [phone] Reed [facility].D. [facility] [phone] Social History Type Date Description Comments Sex [...] % 2l Procedures Date Code Description Status 02/08/2021 27330 Office/Outpatient Established Mo d MDM 30-39 Min Completed 02/08/2021 09193 EKG Completed Encounters Type Date Location Provider Dx Diagnosis Office Visit 02/08/2021 3:45p [facility]gy [facility] 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 02/08/2021 D02.22 Carcinoma in situ of left bronch us and lung [facility] 02/08/2021 I49.49 Other premature depolarization M rosangela Cleveland [facility]
--- OUTSIDE RECORDS SUMMARY | 2021-03-31 08:51 | CCD ---
Author Author [facility] Organization 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 Active confirmed 4352352762400 Problem Neuropathy G62.9 Active confirmed 013059898 Problem Essential hypertension I10 Active confirmed 85246650 Problem Sialadenitis K11.20 Active confirmed 4922842 1 Problem Migraine syndrome G43.909 Active confirmed 3 9273761 Problem Secondary adrenal insufficiency E27.49 Active confi rmed 06010629 Problem Small cell lung cancer C34.90 Active confirmed 641476043 Problem Hyperlipidemia E78.5 Active confirmed 01815 004 Problem History of lung cancer Z85.118 Active confirmed 375424913 Problem Gastroesophageal reflux disease, esophagitis pre sence not specified K21.9 Active confirmed 322771994 Problem Acquired hypothyroidism E03.9 Active confirmed 364385376 Problem Cigarette nicotine dependence in remission F17.211 Active confirmed 327401272 ALLERGIES Allergen (clinical drug ingredient) Drug/Non Drug Allergy do cumented on EMR Reaction Allergy Type Onset Date Status Sulfa (for allergy use only) Hives Drug Allergy Active doxycycline Doxycycline Hyclate([facility] Code:[address]-85) Vomiting Dr mayfield Allergy Active ENCOUNTERS from 1955 to 2021-02-05 Encounter Location Date Provider Diagnosis [place] [address] [facility] [phone] [place] [address] Jan, Yael Yang IMMUNIZATIONS Vaccine Route Administration Date [...] Education Language: Question Answer Notes Languages spoken: Greek Scientology: Question Answer Notes Scientology No confucianism beliefs that would impact health care. Domestic [...] puffs Inhalation Twice a day NEW ON [facility] DISCHARGE 12/03/20 Nov, Not-Taking Blood Pressure Cuff - as directed Check on L arm D aily if blood pressure is > 150/xx, otherwise weekly. DX: I10 Dec, Active Trokendi XR 25 MG 2 capsules Orally Once a day/prn Not-Taking amLODIPine Besylate 5 MG 1 tablet Orally Once a day for 30 day(s ) Jan, Active Ipratropium [place] 0.02 % 1 nebulizer Inhalation Twice a [...] 8 every 4 hrs new o n [facility] DISCHARGE 12/03/20 Nov, Not-Taking Omeprazole [...] Orally tid for 90 days Active Nystatin 237054 UNIT/ML 4 ml Swish and spit Four times a day for 10 day(s) patient is rinsing her [place] with this bit not swollowing Nov, Active PROCEDURES No Information RESULTS No Results REASON FOR VISIT would like to thank you MEDICAL (GENERAL) HISTORY Type Description Date Medical [...] predn isone Medical History Occipital neuralgia - [facility] Neuro Medical History COPD Medical History [...] being treated with chemo, radiation, immunotherapy, [facility] Surgical History pituitary surgery 2003 Surgical History Second pituitary 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 per patient 2015 Surgical History Bronchoscopy with endobronchial ultrasou Chris Pettit 11/26/2020 Hospitalization History [facility] Hospitalization History [...] Jan, Next Appt Details Provider Name:Yael Yang, 2021-02-24 02:15:00 PM, [address] [facility], , [place], [address], Insurance Providers Payer Name Payer Address Payer Phone Insured Name Patient Relati onship to Insured Coverage Start Date Coverage End Date MEDICARE Part A and B [address] [facility] [id number] [place] self MEDICAID [employer] [employer] [address] [facility] [id number] [place]
--- OUTSIDE RECORDS SUMMARY | 2021-03-31 08:51 | CCD | Continuity of Care Document ---
Author Author [facility] Organization Unknown Address [address] [place] [address] Phone [phone] Care Team Providers Care Branch Operation Evaluation Manager Name Role Phone Reed Dutton M.D. [facility] [phone] Reed Dutton M.D. [facility] [phone] Social History Type Date Description Comments Sex Unknown Medications Active Medications SIG Qnty Indications Ordering Provide r Date Prednisone 10mg Tablets [facility] 02/08/2021 Neomycin/Polymyxin/Hydrocortisone (Otic) 3.5-91191-7 Suspension Instill 4 Drops Into The Right Ear Four Times A Day For 10 Days Unknown Atorvastatin Calcium 80mg Tablets Take One Tablet By Mouth Once A Day Unknown Gabapentin 300mg Capsules Take One Capsule By Mouth Three Times A Day Unknown Spiriva Respimat 2.5mcg/Act Aeroso l Inhale Two Puffs By Mouth Every Day Unknown Omeprazole 20mg Capsules DR Take 1 Capsule By Mouth Once A Day Unknown Amlodipine Besylate 5mg Tablets Take One Tablet By Mouth Every Day Unknown Ventolin HFA 108(90Base) mcg/Act A erosol Inhale Two Puffs By Mouth Every 4 Hours as Needed Unknown Oxycodone HCL 5mg Tablets Unknown Fish Oil 1000mg Capsules Unknown Multivitamin Adult Tablets Unknown Aspirin 81mg Tablets DR 1 by mouth every day Unknown Medications Administered in Office Medication SIG Qnty Indications Ordering Provider Date Dobutamine IV Injection 250MG Inj ection [facility] 021 Technetium TC 99M Sestamibi Injection [facility] 08/07/2020 Vital Signs Date Vital Result Comment 02/08/2021 3:46pm Height 60 inches 5'0" Weight 114.00 lb BMI (Body Mass Index) 22.3 kg/m2 Body Temperature 93.0 F BP Systolic 128 mmHg BP Diastolic 90 mmHg Heart Rate 93 /min O2 % BldC Oximetry 97 % 2l Procedures Date Code Description Status 02/08/2021 19086 Office/Outpatient Established Mo d MDM 30-39 Min Completed 02/08/2021 02499 EKG Completed Encounters Type Date Location Provider Dx Diagnosis Office Visit 02/08/2021 3:45p [facility]iggy [facility] 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 02/08/2021 D02.22 Carcinoma in situ of left bronch us and lung [facility] 02/08/2021 I49.49 Other premature depolarization M [facility]angela [facility] Plan of Treatment Future Appointment(s):* 03/16/2021 1:15 pm - [facility] at [facility]
--- OUTSIDE RECORDS SUMMARY | 2021-03-31 08:51 | CCD ---
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 Active confirmed [id number] Problem Neuropathy G62.9 Active confirmed 394044630 Problem Essential hypertension I10 Active confirmed 54375718 Problem Sialadenitis K11.20 Active confirmed 4838323 1 Problem Migraine syndrome G43.909 Active confirmed 3 8807233 Problem Secondary adrenal insufficiency E27.49 Active confi rmed 03367472 Problem Small cell lung cancer C34.90 Active confirmed 546697896 Problem Hyperlipidemia E78.5 Active confirmed 50066 004 Problem History of lung cancer Z85.118 Active confirmed 986725059 Problem Gastroesophageal reflux disease, esophagitis pre sence not specified K21.9 Active confirmed 807881608 Problem Acquired hypothyroidism E03.9 Active confirmed 691454758 Problem Cigarette nicotine dependence in remission F17.211 Active confirmed 675555414 ALLERGIES Allergen (clinical drug ingredient) Drug/Non Drug Allergy do cumented on EMR Reaction Allergy Type Onset Date Status Sulfa (for allergy use only) Hives Drug Allergy Active doxycycline Doxycycline Hyclate([facility] Code:[address]-62) Vomiting Dr mayfield Allergy Active ENCOUNTERS from 1954 to 2021-01-26 Encounter Location Date Provider Diagnosis [facility] [address] [phone] [place] [address] Dec, Yael Yang Small cell lung cancer C34.9 0 ; Neuropathy G62.9 ; Secondary adrenal insufficiency E27.49 ; Essential hypertension I10 ; Vertigo R42 ; Anemia, unspecified type D64.9 and Oropharyngeal candidiasis B37.0 IMMUNIZATIONS Vaccine Route Administration Date Status Pneumococcal [...] Education Language: Question Answer Notes Languages spoken: Sammarinese Druze: Question Answer Notes Druze No sabianism beliefs that would impact health care. Domestic [...] REASON FOR REFERRAL No Information VITAL SIGNS Weight 115 lbs Dec, Height 62 in Dec, BMI 21.03 kg/m2 Dec, Heart Rate 67 /min Dec, Respiratory Rate 20 /min Dec, Temperature 96.7 degrees Fahrenheit Dec, Oximetry 95 on 2L nc Dec, Blood pressure systolic 92 mm Hg Dec, Blood pressure diastolic 58 mm Hg Dec, MEDICATIONS Medication SIG (Take, Route, Frequency, Duration) Notes Start Da te End Date Status Levothyroxine Sodium 75 MCG TAKE 1 TABLET BY MOUTH ONC E A DAY IN THE MORNING ON AN EMPTY STOMACH for 30 Active Advair HFA 230-21 MCG/ACT 2 puffs Inhalation Twice a day NEW ON [facility] DISCHARGE 12/03/20 Nov, Not-Taking predniSONE 5 MG 1 tablet Orally Once a day for 90 days Dec, Active Trokendi XR 25 MG 2 capsules Orally Once a day/prn Not-Taking Blood Pressure Cuff - as directed Check on L arm D aily if blood pressure is > 150/xx, otherwise weekly. DX: I10 Dec, Active Ipratropium [place] 0.02 % 1 nebulizer Inhalation Twice a day Active Albuterol Sulfate (2.5 MG/3ML) 0.083% 3 ml as needed I nhalation Three times a day Active Meclizine HCl 25 MG 1 tablet [...] min, ER if not resolving Mar, Active Omeprazole 40 MG 1 capsule 30 minutes before morning meal Orally On ce a day Active Aspirin 81 MG 1 tablet Orally Once a day Active Acetaminophen 325 MG 2 capsule as needed 8 every 4 hrs new o n [facility] DISCHARGE 12/03/20 Nov, Not-Taking predniSONE 5 MG 1 tablet Orally Once a day for 90 days Active Gabapentin 300 MG 1 capsule Orally tid for 90 days Active Nystatin 086069 UNIT/ML 4 ml Swish and spit Four times a day for 10 day(s) patient is rinsing her [place] with this bit not swollowing Nov, Active PROCEDURES No Information RESULTS No Results REASON FOR VISIT F/u lung cancer MEDICAL (GENERAL) HISTORY Type Description Date Medical [...] predn isone Medical History Occipital neuralgia - [facility] Neuro Medical History COPD Medical History [...] - being treated with chemo, radiation, immunotherapy, [facility] Surgical History pituitary surgery 2003 Surgical History Second pituitary tumor 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 Pettit 11/26/2020 Hospitalization History [facility]-Dyspnea, left lung mass 11/24- Hospitalization History fell and passed out /reaction from c hemo 12/2020 Goals Section No Information Health Concerns No Information MEDICAL EQUIPMENT No Information MENTAL STATUS No Information FUNCTIONAL STATUS No Information ASSESSMENTS Encounter Date Diagnosis Assessment Notes Treatment Notes Treatm ent Clinical Notes Dec, Small cell lung cancer (ICD-10 - C34.90) Undergoing radiation per Dr. Carrera and chemo and immunotherapy per Dr. Randall at [facility]; going to [facility] next week for a 2nd opinion. She is having a lot of side effects with cancer treatment but intends to continue with it for now. She has a port. Dec, Neuropathy (ICD-10 - G62.9) Of right ribcage due to prior lung surgery. Previously took gabapenin TID but now only taking once a day - she is not sure why, and she would like to increase back to TID. She has a lot of the medication at home and does not need a refill - I advised she can resume prior dosing. Dec, Secondary adrenal insufficiency (ICD-10 - E27.49 ) Prednisone refilled; on this chronically. Recent Na and K+ were normal. Dec, Essential hypertension (ICD-10 - I10) BP low-normal and she has been lightheaded. BP is likely down due to weight loss from cancer and chemotherapy. Dec, Vertigo (ICD-10 - R42) Meclizine helps with these symptoms; Neuro felt this was related to chemotherapy. Dec, Anemia, unspecified type (ICD-10 - D64.9) I advised that low H/H likely due to cancer and/or cancer treatments. She wants to take iron or other supplement to increase H/H; I recommended we check labs prior to starting supplements - order given to have these drawn with her next lab draw. Dec, Oropharyngeal candidiasis (ICD-10 - B37.0) No oral lesions, but may have esophageal lesions. She cannot swallow Nystatin because it makes her very ill; I recommended she try gargling with it and then spit it out. PLAN OF TREATMENT Medication Medication Name Sig Start Date Stop Date Blood Pressure Cuff - as directed Arm cuff; Dx I10.0 for 90 day( s) Dec, predniSONE 5 MG 1 tablet Orally Once a day for 90 days Gabapentin 300 MG 1 capsule Orally tid for 90 days Meclizine HCl 25 MG 1 tablet as needed Orally Once a day for 30 days Treatment Notes Assessment Notes Clinical Notes Small cell lung cancer Undergoing radiat ion per Dr. Carrera and chemo and immunotherapy per Dr. Randall at [facility]; going to [facility] next week for a 2nd opinion. She is having a lot of side effects with cancer treatment but intends to continue with it for now. She has a port. Neuropathy Of right ribcage due to prior lung surgery. Previously took gabapenin TID but now only taking once a day - she is not sure why, and she would like to increase back to TID. She has a lot of the medication at home and does not need a refill - I advised she can resume prior dosing. Secondary adrenal insufficiency Predniso ne refilled; on this chronically. Recent Na and K+ were normal. Essential hypertension BP low-normal and she has been lightheaded. BP is likely down due to weight loss from cancer and chemotherapy. Vertigo Meclizine helps with these symptoms; Neuro felt this was related to chemotherapy. Anemia, unspecified type I advised that low H/H likely due to cancer and/or cancer treatments. She wants to take iron or other supplement to increase H/H; I recommended we check labs prior to starting supplements - order given to have these drawn with her next lab draw. Oropharyngeal candidiasis No oral lesion s, but may have esophageal lesions. She cannot swallow Nystatin because it makes her very ill; I recommended she try gargling with it and then spit it out. Future Test Test Name Order Date FERRITIN [id number] TOTAL IRON BINDING CAPACIT [id number] VITAMIN B12 LEVEL [id number] RBC FOLATE PROFILE 20210125 Next Appt Details 1 month Reason:F/u med prob Provider Name:Yael Yang, 2021-02-24 02:15:00 PM, [address], , [place], [address], Follow Up:1 monthF/u med prob Insurance Providers Payer Name Payer Address Payer Phone Insured Name Patient Relati onship to Insured Coverage Start Date Coverage End Date MEDICARE Part A and B [address] [facility] [phone] [place] [facility] [address] [facility] [address] [place]
--- OUTSIDE RECORDS SUMMARY | 2021-03-31 08:51 | CCD ---
Author Author [facility] Organization 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 Active confirmed 8030036329645 Problem Neuropathy G62.9 Active confirmed 640832240 Problem Essential hypertension I10 Active confirmed 72784053 Problem Sialadenitis K11.20 Active confirmed 5230267 1 Problem Migraine syndrome G43.909 Active confirmed 3 7140073 Problem Secondary adrenal insufficiency E27.49 Active confi rmed 05014573 Problem Small cell lung cancer C34.90 Active confirmed 496741766 Problem Hyperlipidemia E78.5 Active confirmed 01180 004 Problem History of lung cancer Z85.118 Active confirmed 021030743 Problem Gastroesophageal reflux disease, esophagitis pre sence not specified K21.9 Active confirmed 875237569 Problem Acquired hypothyroidism E03.9 Active confirmed 310833326 Problem Cigarette nicotine dependence in remission F17.211 Active confirmed 906696163 ALLERGIES Allergen (clinical drug ingredient) Drug/Non Drug Allergy do cumented on EMR Reaction Allergy Type Onset Date Status Sulfa (for allergy use only) Hives Drug Allergy Active doxycycline Doxycycline Hyclate([facility] Code:[address]-18) Vomiting Dr mayfield Allergy Active ENCOUNTERS from 1955 to 2021-02-04 Encounter Location Date Provider Diagnosis [place] [id number] [facility] [phone] [place] [address] Jan, Yael Yang IMMUNIZATIONS Vaccine Route Administration [...] Education Language: Question Answer Notes Languages spoken: Kittitian Alevism: Question Answer Notes Alevism No pentecostalism beliefs that would impact health care. Domestic [...] puffs Inhalation Twice a day NEW ON [facility] DISCHARGE 12/03/20 Nov, Not-Taking Blood Pressure Cuff - as directed Check on L arm D aily if blood pressure is > 150/xx, otherwise weekly. DX: I10 Dec, Active Trokendi XR 25 MG 2 capsules Orally Once a day/prn Not-Taking amLODIPine Besylate 5 MG 1 tablet Orally Once a day for 30 day(s ) Jan, Active Ipratropium [place] 0.02 % 1 nebulizer Inhalation Twice a [...] o n [facility] DISCHARGE 12/03/20 Nov, Not-Taking Omeprazole 40 MG [...] Orally tid for 90 days Active Nystatin 775095 UNIT/ML 4 ml Swish and spit Four times a day for 10 day(s) patient is rinsing her [place] with this bit not swollowing Nov, Active PROCEDURES No Information RESULTS No Results REASON FOR VISIT refill MEDICAL (GENERAL) HISTORY Type Description Date Medical [...] predn isone Medical History Occipital neuralgia - [facility] Neuro Medical History COPD Medical History [...] being treated with chemo, radiation, immunotherapy, [facility] Surgical History pituitary surgery 2003 Surgical History Second pituitary 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 - bruce l per patient 2015 [...] Provider Name:Yael Yang, 2021-02-24 02:15:00 PM, [address], , [place], [address], Insurance Providers Payer Name Payer Address Payer Phone Insured Name Patient Relati onship to Insured Coverage Start Date Coverage End Date MEDICAID [employer] [address] [facility] [id number] [place] MEDICARE Part A and B [address] [facility] [id number] [phone] [place]
--- OUTSIDE RECORDS SUMMARY | 2021-03-31 08:52 | CCD ---
Author Author [facility] Organization [facility] Address Unknown Phone Unavailable Care Team Providers Care Office Manager Receptionist Name Role Phone Sameer, Ludivina Paiz MD Unavailable Unavailable Sameer, Ludivina Paiz MD Unavailable Unavailable Sameer, Ludivina Paiz MD Unavailable Unavailable Sameer, Ludivina Paiz MD Unavailable Unavailable Sameer, Ludivina Paiz MD Unavailable Unavailable Sameer, Ludivina Paiz MD Unavailable Unavailable Sameer, Ludivina Paiz MD Unavailable Unavailable Sameer, Ludivina Paiz MD Unavailable Unavailable Sameer, Ludivina Paiz MD Unavailable Unavailable Sameer, Ludivina Paiz MD Unavailable Unavailable Sameer, Ludivina Paiz MD Unavailable Unavailable Sameer, Ludivina Paiz MD Unavailable Unavailable Sameer, Ludivina Paiz MD Unavailable Unavailable Sameer, Ludivina Paiz MD Unavailable Unavailable Sameer, Ludivina Paiz MD Unavailable Unavailable Sameer, Ludivina Paiz MD Unavailable Unavailable Sameer, Ludivina Paiz MD Unavailable Unavailable Sameer, Ludivina Paiz MD Unavailable Unavailable Sameer, Ludivina Paiz MD Unavailable Unavailable Sameer, Ludivina Paiz MD Unavailable Unavailable Sameer, Ludivina Paiz MD Unavailable Unavailable Sameer, Ludivina Paiz MD Unavailable Unavailable Sameer, Ludivina Paiz MD Unavailable Unavailable Sameer, Ludivina Paiz MD Unavailable Unavailable Sameer, Ludivina Paiz MD Unavailable Unavailable Sameer, Ludivina Paiz MD Unavailable Unavailable Sameer, Ludivina Paiz MD Unavailable Unavailable Sameer, Ludivina Paiz MD Unavailable Unavailable Sameer, A Chencho MD Unavailable Unavailable Sameer, A Chencho MD Unavailable Unavailable Sameer, A Chencho MD Unavailable Unavailable Sameer, A Chencho MD Unavailable Unavailable Sameer, A Chencho MD Unavailable Unavailable Sameer, A Chencho MD Unavailable Unavailable Sameer, A Chencho MD Unavailable Unavailable Sameer, A Chencho MD Unavailable Unavailable Sameer, A Chencho MD Unavailable Unavailable Sameer, A Chencho MD Unavailable Unavailable Sameer, A Chencho MD Unavailable Unavailable Sameer, A Chencho MD Unavailable Unavailable Sameer, A Hcencho MD Unavailable Unavailable Sameer, A Chencho MD Unavailable Unavailable Sameer, A Chencho MD Unavailable Unavailable Sameer, A Chencho MD Unavailable Unavailable Sameer, A Chencho MD Unavailable Unavailable Sameer, A Chencho MD Unavailable Unavailable Sameer, A Chencho MD Unavailable Unavailable Sameer, A Chencho MD Unavailable Unavailable Sameer, A Chencho MD Unavailable Unavailable Sameer, A Chencho MD Unavailable Unavailable Sameer, A Chencho MD Unavailable Unavailable Sameer, A Chencho MD Unavailable Unavailable Sameer, A Chencho MD Unavailable Unavailable Sameer, A Chencho MD Unavailable Unavailable Sameer, A Chencho MD Unavailable Unavailable Sameer, A Chencho MD Unavailable Unavailable Sameer, A Chencho MD Unavailable Unavailable Sameer, A Chencho MD Unavailable Unavailable Sameer, A Chencho MD Unavailable Unavailable Sameer, A Chencho MD Unavailable Unavailable Sameer, A Chencho MD Unavailable Unavailable Sameer, A Chencho MD Unavailable Unavailable Sameer, A Chencho MD Unavailable Unavailable Sameer, A Chencho MD Unavailable Unavailable Sameer, A Chencho MD Unavailable Unavailable Sameer, A Chencho MD Unavailable Unavailable Smaeer, A Chencho MD Unavailable Unavailable Sameer, A Chencho MD Unavailable Unavailable Sameer, A Chencho MD Unavailable Unavailable Sameer, A Chencho MD Unavailable Unavailable Sameer, A Chencho MD Unavailable Unavailable Sameer, A Chencho MD Unavailable Unavailable Sameer, A Chencho MD Unavailable Unavailable Sameer, A Chencho MD Unavailable Unavailable Sameer, A Chencho MD Unavailable Unavailable Sameer, A Chencho MD Unavailable Unavailable Sameer, A Chencho MD Unavailable Unavailable Sameer, A Checnho MD Unavailable Unavailable Sameer, A Chencho MD Unavailable Unavailable Sameer, A Chencho MD Unavailable Unavailable Sameer, A Chencho MD Unavailable Unavailable Sameer, A Chencho MD Unavailable Unavailable Sameer, A Chencho MD Unavailable Unavailable Sameer, A Chencho MD Unavailable Unavailable Sameer, A Chencho MD Unavailable Unavailable Sameer, A Chencho MD Unavailable Unavailable Sameer, A Chencho MD Unavailable Unavailable Sameer, A Chencho MD Unavailable Unavailable Sameer, A Chencho MD Unavailable Unavailable Sameer, A Chencho MD Unavailable Unavailable Sameer, A Chencho MD Unavailable Unavailable Sameer, A Chencho MD Unavailable Unavailable Sameer, A Chencho MD Unavailable Unavailable Sameer, A Chencho MD Unavailable Unavailable Sameer, A Chencho MD Unavailable Unavailable Sameer, A Chencho MD Unavailable Unavailable Sameer, A Chencho MD Unavailable Unavailable Sameer, A Chencho MD Unavailable Unavailable Sameer, A Chencho MD Unavailable Unavailable Sameer, A Chencho MD Unavailable Unavailable Sameer, A Chencho MD Unavailable Unavailable Sameer, A Chencho MD Unavailable Unavailable Sameer, A Chencho MD Unavailable Unavailable Sameer, A Chencho MD Unavailable Unavailable Sameer, A Chencho MD Unavailable Unavailable Sameer, A Chencho MD Unavailable Unavailable Sameer, A Chencho MD Unavailable Unavailable Sameer, A Chencho MD Unavailable Unavailable Sameer, A Chencho MD Unavailable Unavailable Sameer, A Chencho MD Unavailable Unavailable Sameer, Ludivina Chencho MD Unavailable Unavailable Sameer, Ludivina Chencho MD Unavailable Unavailable Sameer, Ludivina Chencho MD Unavailable Unavailable Sameer, Ludivina Chencho MD Unavailable Unavailable Sameer, Ludivina Chencho MD Unavailable Unavailable Sameer, Ludivina Chencho Unavailable Unavailable Sameer, Ludivina Chencho Unavailable Unavailable Mollison, Syl Ramirez MD Unavailable Unavailable Mollison, Syl Ramirez MD Unavailable Unavailable Mollison, Syl Ramirez MD Unavailable Unavailable Mollison, Syl Ramirez MD Unavailable Unavailable Mollison, Syl Ramirez MD Unavailable Unavailable Mollison, Syl Ramirez MD Unavailable Unavailable Mollison, Syl Ramirez MD Unavailable Unavailable Mollison, Syl Ramirez MD Unavailable Unavailable Mollison, Syl Ramirez MD Unavailable Unavailable Mollison, Syl Ramirez MD Unavailable Unavailable Mollison, Syl Ramirez MD Unavailable Unavailable Mollison, Syl Ramirez MD Unavailable Unavailable Mollison, Syl Ramirez MD Unavailable Unavailable Mollison, Syl Ramirez MD Unavailable Unavailable Mollison, Syl Ramirez MD Unavailable Unavailable Mollison, Syl Ramirez MD Unavailable Unavailable Mollison, Syl Ramirez MD Unavailable Unavailable Mollison, Syl Ramirez MD Unavailable Unavailable Mollison, Syl Ramirez MD Unavailable Unavailable Mollison, Syl Ramirez MD Unavailable Unavailable Mollison, Syl Ramirez MD Unavailable Unavailable Mollison, Syl Ramirez MD Unavailable Unavailable Mollison, Syl Ramirez MD Unavailable Unavailable Mollison, Syl Ramirez MD Unavailable Unavailable Mollison, Syl Ramirez MD Unavailable Unavailable Mollison, Syl Ramirez MD Unavailable Unavailable Syl Walters MD Unavailable Unavailable Syl Walters MD Unavailable Unavailable Syl Walters MD Unavailable Unavailable Selena, Syl Ramirez MD Unavailable Unavailable Varki, M J Luis MD Unavailable Unavailable Varki, M J Luis MD Unavailable Unavailable Varki, M J Luis MD Unavailable Unavailable Varki, M J Luis MD Unavailable Unavailable Varki, M J Luis MD Unavailable Unavailable Varki, M J Luis MD Unavailable Unavailable Varki, M J Luis MD Unavailable Unavailable Varki, M J Luis MD Unavailable Unavailable Varki, M J Luis MD Unavailable Unavailable Varki, M J Luis MD Unavailable Unavailable Varki, M J Luis MD Unavailable Unavailable Varki, M J Luis MD Unavailable Unavailable Varki, M J Luis MD Unavailable Unavailable Varki, M J Luis MD Unavailable Unavailable Varki, M J Luis MD Unavailable Unavailable Varki, M J Luis MD Unavailable Unavailable Varki, M J Luis MD Unavailable Unavailable Varki, M J Luis MD Unavailable Unavailable Varki, M J Luis MD Unavailable Unavailable Varki, M J Luis MD Unavailable Unavailable Varki, M J Luis MD Unavailable Unavailable Varki, M J Luis MD Unavailable Unavailable Varki, M J Luis MD Unavailable Unavailable Varki, M J Luis MD Unavailable Unavailable Varki, M J Luis MD Unavailable Unavailable Varki, M J Luis MD Unavailable Unavailable Varki, M J Luis MD Unavailable Unavailable Varki, M J Luis MD Unavailable Unavailable Varki, M J Luis MD Unavailable Unavailable Varki, M J Luis MD Unavailable Unavailable Varki, M J Luis MD Unavailable Unavailable Varki, M J Luis MD Unavailable Unavailable Varki, M J Luis MD Unavailable Unavailable Varki, M J Luis MD Unavailable Unavailable Varki, M J Luis MD Unavailable Unavailable Varki, M J Luis MD Unavailable Unavailable Varki, M J Luis MD Unavailable Unavailable Varki, M J Luis MD Unavailable Unavailable Varki, M J Luis MD Unavailable Unavailable Varki, M J Luis MD Unavailable Unavailable Varki, M J Luis MD Unavailable Unavailable Varki, M J Luis Unavailable Unavailable Varki, M J Luis MD Unavailable Unavailable Varki, M J Luis MD Unavailable Unavailable Varki, M J Luis MD Unavailable Unavailable Varki, M J Luis MD Unavailable Unavailable Varki, M J Luis MD Unavailable Unavailable PAULINE MATTHEW MD Unavailable Unavailable PAULINE MATTHEW MD Unavailable Unavailable PAULINE MATTHEW MD Unavailable Unavailable PAULINE MATTHEW MD Unavailable Unavailable SOUSOU, TAREK MD Unavailable Unavailable SOUSOU, TAREK MD Unavailable Unavailable SOUSOU, TAREK MD Unavailable Unavailable SOUSOU, TAREK MD Unavailable Unavailable SOUSOU, TAREK MD Unavailable Unavailable SOUSOU, TAREK MD Unavailable Unavailable SOUSOU, TAREK MD Unavailable Unavailable SOUSOU, TAREK MD Unavailable Unavailable SOUSOU, TAREK MD Unavailable Unavailable SOUSOU, TAREK MD Unavailable Unavailable SOUSOU, TAREK MD Unavailable Unavailable SOUSOU, TAREK MD Unavailable Unavailable SOUSOU, TAREK MD Unavailable Unavailable SOUSOU, TAREK MD Unavailable Unavailable SOUSOU, TAREK MD Unavailable Unavailable SOUSOU, TAREK MD Unavailable Unavailable SOUSOU, TAREK MD Unavailable Unavailable SOUSOU, TAREK MD Unavailable Unavailable SOUSOU, TAREK MD Unavailable Unavailable SOUSOU, TAREK MD Unavailable Unavailable SOUSOU, TAREK MD Unavailable Unavailable SOUSOU, TAREK MD Unavailable Unavailable SOUSOU, TAREK MD Unavailable Unavailable SOUSOU, TAREK MD Unavailable Unavailable SOUSOU TARJANICE MD Unavailable Unavailable SOUSOU, TAREK MD Unavailable Unavailable SOUSOU, TAREK MD Unavailable Unavailable SOUSOU, TAREK MD Unavailable Unavailable SOUSOU, TAREK MD Unavailable Unavailable SOUSOU, TAREK MD Unavailable Unavailable SOUSOU, TAREK MD Unavailable Unavailable SOUSOU TARJANICE MD Unavailable Unavailable SOUSOU, TAREK MD Unavailable Unavailable SOUSOU, TAREK MD Unavailable Unavailable SOUSOU, TAREK MD Unavailable Unavailable SOUSOU, TAREK MD Unavailable Unavailable SOUSOU, TAREK MD Unavailable Unavailable SOUSOU TARJANICE MD Unavailable Unavailable SOUSOU TARJANICE MD Unavailable Unavailable SOUSOU, TAREK MD Unavailable Unavailable SOUSOU, TAREK MD Unavailable Unavailable SOUSOU, TAREK MD Unavailable Unavailable SOUSOU, TAREK MD Unavailable Unavailable SOUSOU, TAREK MD Unavailable Unavailable SOUSOU, TAREK MD Unavailable Unavailable SOUSOU, TAREK MD Unavailable Unavailable SOUSOU, TAREK MD Unavailable Unavailable SOUSOU, TAREK MD Unavailable Unavailable SOUSOU, TAREK MD Unavailable Unavailable SOUSOU, TAREK MD Unavailable Unavailable SOUSOU, TAREK MD Unavailable Unavailable SOUSOU, TAREK MD Unavailable Unavailable SOUSOU, TAREK MD Unavailable Unavailable SOUSOU, TAREK MD Unavailable Unavailable SOUSOU, TAREK MD Unavailable Unavailable SOUSOU, TAREK MD Unavailable Unavailable SOUSOU, TAREK MD Unavailable Unavailable SOUPAULINE JC MD Unavailable Unavailable SOUSOPAULINE Walker MD Unavailable Unavailable SOUPAULINE JC MD Unavailable Unavailable BABITASOPAULINE Walker MD Unavailable Unavailable SOUSOPAULINE Walker MD Unavailable Unavailable SOUSOPAULINE Walker MD Unavailable Unavailable SOUSOPAULINE Walker MD Unavailable Unavailable SOUSOPAULINE Walker MD Unavailable Unavailable SOUSOPAULINE Walker MD Unavailable Unavailable PAULINE MATTHEW MD Unavailable Unavailable PAULINE MATTHEW MD Unavailable Unavailable Giovanni GALLOWAY MD Unavailable Unavailable Giovanni GALLOWAY MD Unavailable Unavailable Giovanni GALLOWAY MD Unavailable Unavailable Giovanni GALLOWAY MD Unavailable Unavailable Giovanni GALLOWAY MD Unavailable Unavailable Giovanni GALLOWAY MD Unavailable Unavailable Giovanni GALLOWAY MD Unavailable Unavailable Giovanni GALLOWAY MD Unavailable Unavailable Giovanni GALLOWAY MD Unavailable Unavailable Giovanni GALLOWAY MD Unavailable Unavailable Giovanni GALLOWAY MD Unavailable Unavailable Giovanni GALLOWAY MD Unavailable Unavailable Giovanni GALLOWAY MD Unavailable Unavailable Giovanni GALLOWAY MD Unavailable Unavailable Giovanni GALLOWAY MD Unavailable Unavailable Giovanni GALLOWAY MD Unavailable Unavailable Giovanni GALLOWAY MD Unavailable Unavailable Giovanni GALLOWAY MD Unavailable Unavailable Giovanni GALLOWAY MD Unavailable Unavailable Giovanni GALLOWAY MD Unavailable Unavailable Giovanni GALLOWAY MD Unavailable Unavailable Giovanni GALLOWAY MD Unavailable Unavailable Giovanni GALLOWAY MD Unavailable Unavailable Giovanni GALLOWAY MD Unavailable Unavailable Giovanni GALLOWAY MD Unavailable Unavailable Giovanni GALLOWAY MD Unavailable Unavailable Giovanni GALLOWAY MD Unavailable Unavailable Giovanni GALLOWAY MD Unavailable Unavailable Giovanni GALLOWAY MD Unavailable Unavailable Giovanni GALLOWAY MD Unavailable Unavailable Giovanni GALLOWAY MD Unavailable Unavailable Giovanni GALLOWAY MD Unavailable Unavailable Giovanni GALLOWAY MD Unavailable Unavailable Giovanni GALLOWAY MD Unavailable Unavailable Giovanni GALLOWAY MD Unavailable Unavailable Giovanni GALLOWAY MD Unavailable Unavailable Giovanni GALLOWAY MD Unavailable Unavailable Giovanni GALLOWAY MD Unavailable Unavailable Giovanni GALLOWAY MD Unavailable Unavailable Giovanni GALLOWAY MD Unavailable Unavailable Giovanni GALLOWAY MD Unavailable Unavailable Giovanni GALLOWAY MD Unavailable Unavailable Giovanni GALLOWAY MD Unavailable Unavailable Giovanni GALLOWAY MD Unavailable Unavailable Giovanni GALLOWAY MD Unavailable Unavailable Giovanni GALLOWAY MD Unavailable Unavailable Giovanni GALLOWAY MD Unavailable Unavailable Giovanni GALLOWAY MD Unavailable Unavailable Giovanni GALLOWAY MD Unavailable Unavailable Giovanni GALLOWAY MD Unavailable Unavailable Giovanni GALLOWAY MD Unavailable Unavailable Giovanni GALLOWAY MD Unavailable Unavailable Giovanni GALLOWAY MD Unavailable Unavailable Giovanni GALLOWAY MD Unavailable Unavailable Giovanni GALLOWAY MD Unavailable Unavailable Giovanni GALLOWAY MD Unavailable Unavailable Giovanni GALLOWAY MD Unavailable Unavailable Giovanni GALLOWAY MD Unavailable Unavailable Giovanni GALLOWAY MD Unavailable Unavailable Giovanni GALLOWAY MD Unavailable Unavailable Giovanni GALLOWAY MD Unavailable Unavailable Giovanni GALLOWAY MD Unavailable Unavailable Giovanni GALLOWAY MD Unavailable Unavailable Giovanni GALLOWAY MD Unavailable Unavailable Giovanni GALLOWAY MD Unavailable Unavailable Giovanni GALLOWAY MD Unavailable Unavailable Giovanni GALLOWAY MD Unavailable Unavailable Giovanni GALLOWAY MD Unavailable Unavailable Giovanni GALLOWAY MD Unavailable Unavailable Giovanni GALLOWAY MD Unavailable Unavailable Giovanni GALLOWAY MD Unavailable Unavailable Giovanni GALLOWAY MD Unavailable Unavailable Giovanni GALLOWAY MD Unavailable Unavailable Giovanni GALLOWAY MD Unavailable Unavailable Giovanni GALLOWAY MD Unavailable Unavailable Giovanni GALLOWAY MD Unavailable Unavailable Giovanni GALLOWAY MD Unavailable Unavailable Giovanni GALLOWAY MD Unavailable Unavailable Giovanni GALLOWAY MD Unavailable Unavailable Giovanni GALLOWAY MD Unavailable Unavailable Giovanni GALLOWAY MD Unavailable Unavailable Giovanni GALLOWAY MD Unavailable Unavailable Giovanni GALLOWAY MD Unavailable Unavailable Giovanni GALLOWAY MD Unavailable Unavailable Giovanni GALLOWAY MD Unavailable Unavailable Giovanni GALLOWAY MD Unavailable Unavailable Giovanni GALLOWAY MD Unavailable Unavailable Giovanni GALLOWAY MD Unavailable Unavailable Giovanni GALLOWAY MD Unavailable Unavailable Giovanni GALLOWAY MD Unavailable Unavailable Giovanni GALLOWAY MD Unavailable Unavailable Giovanni GALLOWAY MD Unavailable Unavailable Giovanni GALLOWAY MD Unavailable Unavailable Joanne Box MD Unavailable Unavailable Joanne Box MD Unavailable Unavailable Joanne Box MD Unavailable Unavailable Joanne Box MD Unavailable Unavailable Joanne Box MD Unavailable Unavailable Joanne Box MD Unavailable Unavailable Joanne Box MD Unavailable Unavailable Joanne Box MD Unavailable Unavailable Joanne Box MD Unavailable Unavailable Joanne Box MD Unavailable Unavailable Joanne Box MD Unavailable Unavailable Joanne Box MD Unavailable Unavailable Joanne Box MD Unavailable Unavailable Joanne Box MD Unavailable Unavailable Joanne Box MD Unavailable Unavailable Joanne Box MD Unavailable Unavailable Joanne Box MD Unavailable Unavailable Joanne Box MD Unavailable Unavailable Joanne Box MD Unavailable Unavailable Joanne Box MD Unavailable Unavailable Joanne Box MD Unavailable Unavailable Joanne Box MD Unavailable Unavailable Joanne Box MD Unavailable Unavailable Joanne Box MD Unavailable Unavailable Joanne Box MD Unavailable Unavailable Joanne Box MD Unavailable Unavailable Joanne Box MD Unavailable Unavailable Joanne Box MD Unavailable Unavailable Joanne Box MD Unavailable Unavailable Joanne Box MD Unavailable Unavailable Joanne Box MD Unavailable Unavailable Joanne Box MD Unavailable Unavailable Joanne Box MD Unavailable Unavailable Joanne Box MD Unavailable Unavailable Joanne Box MD Unavailable Unavailable Joanne Box MD Unavailable Unavailable Joanne Box MD Unavailable Unavailable Joanne Box MD Unavailable Unavailable Joanne Box MD Unavailable Unavailable Joanne Box MD Unavailable Unavailable Joanne Box MD Unavailable Unavailable Joanne Box MD Unavailable Unavailable Joanne Box MD Unavailable Unavailable Joanne Box MD Unavailable Unavailable Joanne Box MD Unavailable Unavailable Joanne Box MD Unavailable Unavailable Joanne Box MD Unavailable Unavailable Joanne Box MD Unavailable Unavailable Joanne Box MD Unavailable Unavailable Joanne Box MD Unavailable Unavailable Joanne Box MD Unavailable Unavailable Joanne Box MD Unavailable Unavailable Joanne Box MD Unavailable Unavailable Joanne Box MD Unavailable Unavailable Joanne Box MD Unavailable Unavailable Joanne Box MD Unavailable Unavailable Joanne Box MD Unavailable Unavailable Joanne Box MD Unavailable Unavailable Joanne Box MD Unavailable Unavailable Joanne Box MD Unavailable Unavailable Joanne Box MD Unavailable Unavailable Joanne Box MD Unavailable Unavailable Joanne Box MD Unavailable Unavailable Joanne Box MD Unavailable Unavailable Joanne Box MD Unavailable Unavailable Joanne Box MD Unavailable Unavailable Joanne Box MD Unavailable Unavailable Joanne Box MD Unavailable Unavailable Joanne Box MD Unavailable Unavailable Joanne Box MD Unavailable Unavailable Joanne Box MD Unavailable Unavailable Joanne Box MD Unavailable Unavailable WILFREDO VELEZ MD Unavailable Unavailable WILFREDO VELEZ MD Unavailable Unavailable WILFREDO VELEZ MD Unavailable Unavailable WILFREDO VELEZ MD Unavailable Unavailable SEARS, A ADALID DO Unavailable Unavailable SEARS, A ADALID DO Unavailable Unavailable SEARS, A ADALID DO Unavailable Unavailable SEARS, A ADALID DO Unavailable Unavailable SEARS, A ADALID DO Unavailable Unavailable SEARS, A ADALID DO Unavailable Unavailable SEARS, A ADALID DO Unavailable Unavailable SEARS, A ADALID DO Unavailable Unavailable SEARS, A ADALID DO Unavailable Unavailable SEARS, A ADALID DO Unavailable Unavailable SEARS, A ADALID DO Unavailable Unavailable SEARS, A ADALID DO Unavailable Unavailable SEARS, A ADALID DO Unavailable Unavailable SEARS, A ADALID DO Unavailable Unavailable SEARS, A ADALID DO Unavailable Unavailable SEARS, A ADALID DO Unavailable Unavailable SEARS, A ADALID DO Unavailable Unavailable SEARS, A ADALID DO Unavailable Unavailable SEARS, A ADALID DO Unavailable Unavailable SEARS, A ADALID DO Unavailable Unavailable SEARS, A ADALID DO Unavailable Unavailable SEARS, A ADALID DO Unavailable Unavailable SEARS, A ADALID DO Unavailable Unavailable SEARS, A ADALID DO Unavailable Unavailable SEARS, A ADALID DO Unavailable Unavailable SEARS, A ADALID DO Unavailable Unavailable SEARS, A ADALID DO Unavailable Unavailable SEARS, A ADALID DO Unavailable Unavailable SEARS, A ADALID DO Unavailable Unavailable SEARS, A ADALID DO Unavailable Unavailable SEARS, A ADALID DO Unavailable Unavailable SEARS, A ADALID DO Unavailable Unavailable SEARS, A ADALID DO Unavailable Unavailable SEARS, A ADALID DO Unavailable Unavailable SEARS, A ADALID DO Unavailable Unavailable SEARS, A ADALID DO Unavailable Unavailable SEARS, A ADALID DO Unavailable Unavailable SEARS, A ADALID DO Unavailable Unavailable SEARS, A ADALID DO Unavailable Unavailable SEARS, A ADALID DO Unavailable Unavailable SEARS, A ADALID DO Unavailable Unavailable SEARS, A ADALID DO Unavailable Unavailable SEARS, A ADALID DO Unavailable Unavailable SEARS, A ADALID DO Unavailable Unavailable SEARS, A ADALID DO Unavailable Unavailable SEARS, A ADALID DO Unavailable Unavailable SEARS, A ADALID DO Unavailable Unavailable SEARS, A ADALID DO Unavailable Unavailable Anuj Randall MD Unavailable Unavailable Anuj Randall MD Unavailable Unavailable PrakashAnuj sousa MD Unavailable Unavailable Anuj Randall MD Unavailable Unavailable Anuj Randall MD Unavailable Unavailable Anuj Randall MD Unavailable Unavailable Anuj Randall MD Unavailable Unavailable Anuj Randall MD Unavailable Unavailable PrakashAnuj sousa MD Unavailable Unavailable PrakashAnuj sousa MD Unavailable Unavailable PrakashAnuj sousa MD Unavailable Unavailable AISHA, MAQBOOL ZIGGY MD Unavailable Unavailable AISHA, MAQBOOL ZIGGY MD Unavailable Unavailable AISHA, MAQBOOL ZIGGY MD Unavailable Unavailable AISHA, MAQBOOL ZIGGY MD Unavailable Unavailable AISHA, MAQBOOL ZGIGY MD Unavailable Unavailable AISHA, MAQBOOL ZIGGY MD Unavailable Unavailable AISHA, MAQBOOL ZIGGY MD Unavailable Unavailable AISHA, MAQBOOL ZIGGY MD Unavailable Unavailable AISHA, MAQBOOL ZIGGY MD Unavailable Unavailable AISHA, MAQBOOL ZIGGY MD Unavailable Unavailable AISHA, MAQBOOL ZIGGY MD Unavailable Unavailable AISHA, MAQBOOL ZIGGY MD Unavailable Unavailable AISHA, MAQBOOL ZIGGY MD Unavailable Unavailable AISHA, MAQBOOL ZIGGY MD Unavailable Unavailable AISHA, MAQBOOL ZIGGY MD Unavailable Unavailable AISHA, MAQBOOL ZIGGY MD Unavailable Unavailable AISHA, MAQBOOL ZIGGY MD Unavailable Unavailable AISHA, MAQBOOL ZIGGY MD Unavailable Unavailable AISHA, MAQBOOL ZIGGY MD Unavailable Unavailable AISHA, MAQBOOL ZIGGY MD Unavailable Unavailable AISHA, MAQBOOL ZIGGY MD Unavailable Unavailable AISHA, MAQBOOL ZIGGY MD Unavailable Unavailable AISHA, MAQBOOL ZIGGY MD Unavailable Unavailable AISHA, MAQBOOL ZIGGY MD Unavailable Unavailable AISHA, MAQBOOL ZIGGY MD Unavailable Unavailable AISHA, MAQBOOL ZIGGY MD Unavailable Unavailable AISHA, MAQBOOL ZIGGY MD Unavailable Unavailable AISHA, MAQBOOL ZIGGY MD Unavailable Unavailable AISHA, MAQBOOL ZIGGY MD Unavailable Unavailable IASHA, MAQBOOL ZIGGY MD Unavailable Unavailable AISHA, MAQBOOL ZIGGY MD Unavailable Unavailable AISHA, MAQBOOL ZIGGY MD Unavailable Unavailable AISHA, MAQBOOL ZIGGY MD Unavailable Unavailable AISHA, MAQBOOL ZIGGY MD Unavailable Unavailable AISHA, MAQBOOL ZIGGY MD Unavailable Unavailable AISHA, MAQBOOL ZIGGY MD Unavailable Unavailable AISHA, MAQBOOL ZIGGY MD Unavailable Unavailable AISHA, MAQBOOL ZIGGY MD Unavailable Unavailable AISHA, MAQBOOL ZIGGY MD Unavailable Unavailable AISHA, MAQBOOL ZIGGY MD Unavailable Unavailable AISHA, MAQBOOL ZIGGY MD Unavailable Unavailable AISHA, MAQBOOL ZIGGY MD Unavailable Unavailable AISHA, MAQBOOL ZIGGY MD Unavailable Unavailable AISHA, MAQBOOL ZIGGY MD Unavailable Unavailable AISHA, MAQBOOL ZIGGY MD Unavailable Unavailable AISHA, MAQBOOL ZIGGY MD Unavailable Unavailable AISHA, MAQBOOL ZIGGY MD Unavailable Unavailable AISHA, MAQBOOL ZIGGY MD Unavailable Unavailable AISHA, MAQBOOL ZIGGY MD Unavailable Unavailable AISHA, MAQBOOL ZIGGY MD Unavailable Unavailable AISHA, MAQBOOL ZIGGY MD Unavailable Unavailable AISHA, MAQBOOL ZIGGY MD Unavailable Unavailable AISHA, MAQBOOL ZIGGY MD Unavailable Unavailable AISHA, MAQBOOL ZIGGY MD Unavailable Unavailable AISHA, MAQBOOL ZIGGY MD Unavailable Unavailable AISHA, MAQBOOL ZIGGY MD Unavailable Unavailable AISHA, MAQBOOL ZIGGY MD Unavailable Unavailable AISHA, MAQBOOL ZIGGY MD Unavailable Unavailable AISHA, MAQBOOL ZIGGY MD Unavailable Unavailable AISHA, MAQBOOL ZIGGY MD Unavailable Unavailable AISHA, MAQBOOL ZIGGY MD Unavailable Unavailable AISHA, MAQBOOL ZIGGY MD Unavailable Unavailable AISHA, MAQBOOL ZIGGY MD Unavailable Unavailable AISHA, MAQBOOL ZIGGY MD Unavailable Unavailable AISHA, MAQBOOL ZIGGY MD Unavailable Unavailable AISHA, MAQBOOL ZIGGY MD Unavailable Unavailable AISHA, MAQBOOL ZIGGY MD Unavailable Unavailable AISHA, MAQBOOL ZIGGY MD Unavailable Unavailable AISHA, MAQBOOL ZIGGY MD Unavailable Unavailable AISHA, MAQBOOL ZIGGY MD Unavailable Unavailable AISHA, MAQBOOL ZIGGY MD Unavailable Unavailable AISHA, MAQBOOL ZIGGY MD Unavailable Unavailable AISHA, MAQBOOL ZIGGY MD Unavailable Unavailable AISHA, MAQBOOL ZIGGY MD Unavailable Unavailable AISHA, MAQBOOL ZIGGY MD Unavailable Unavailable AIHSA, MAQBOOL ZIGGY MD Unavailable Unavailable AISHA, MAQBOOL ZIGGY MD Unavailable Unavailable AISHA, MAQBOOL ZIGGY MD Unavailable Unavailable MIGUEL S HOLLY JONES Unavailable Unavailable MIGUEL, S HOLLY JONES Unavailable Unavailable MIGUEL, S HOLLY JONES Unavailable Unavailable MIGUEL, S HOLLY JONES Unavailable Unavailable MIGUEL, S HOLLY JONES Unavailable Unavailable CHIN, S HOLLY JONES Unavailable Unavailable CHIN, S HOLLY JONES Unavailable Unavailable CHIN, S HOLLY JONES Unavailable Unavailable CHIN, S HOLLY JONES Unavailable Unavailable CHIN, S HOLLY JONES Unavailable Unavailable CHIN, S HOLLY JONES Unavailable Unavailable CHIN, S HOLLY JONES Unavailable Unavailable CHIN, S HOLLY JONES Unavailable Unavailable CHIN, S HOLLY JONES Unavailable Unavailable CHIN, S HOLLY JONES Unavailable Unavailable CHIN, S HOLLY JONES Unavailable Unavailable CHIN, S HOLLY JONES Unavailable Unavailable CHIN, S HOLLY JONES Unavailable Unavailable CHIN, S HOLLY JONES Unavailable Unavailable CHIN, S HOLLY JONES Unavailable Unavailable CHIN, S HOLLY JONES Unavailable Unavailable CHIN, S HOLLY JONES Unavailable Unavailable CHIN, S HOLLY JONES Unavailable Unavailable CHIN, S HOLLY JONES Unavailable Unavailable CHIN, S HOLLY JONES Unavailable Unavailable CHIN, S HOLLY JONES Unavailable Unavailable CHIN, S HOLLY JONES Unavailable Unavailable MIGUEL, S HOLLY JONES Unavailable Unavailable CHIN, S HOLLY JONES Unavailable Unavailable CHIN, S HOLLY JONES Unavailable Unavailable MIGUEL, S HOLLY JONES Unavailable Unavailable CHIN, S HOLLY JONES Unavailable Unavailable CHIN, S HOLLY JONES Unavailable Unavailable CHIN, S HOLLY JONES Unavailable Unavailable CHIN, S HOLLY JONES Unavailable Unavailable MIGUEL, S HOLLY JONES Unavailable Unavailable CHIN, S HOLLY JONES Unavailable Unavailable CHIN, S HOLLY JONES Unavailable Unavailable MIGUEL S HOLLY JONES Unavailable Unavailable MIGUEL S HOLLY JONES Unavailable Unavailable MIGUEL, S HOLLY JONES Unavailable Unavailable MIGUEL S HOLLY JONES Unavailable Unavailable MIGUEL S HOLLY JONES Unavailable Unavailable MIGUEL S HOLLY JONES Unavailable Unavailable MIGUEL S HOLLY JONES Unavailable Unavailable MIGUEL, S HOLLY JONES Unavailable Unavailable MIGUEL, S HOLLY JONES Unavailable Unavailable MIGUEL S HOLLY JONES Unavailable Unavailable MIGUEL S HOLLY JONES Unavailable Unavailable MIGUEL S HOLLY JONES Unavailable Unavailable MIGUEL S HOLLY JONES Unavailable Unavailable MIGUEL S HOLLY OJNES Unavailable Unavailable MIGUEL, S HOLLY JONES Unavailable Unavailable MIGUEL S HOLLY JONES Unavailable Unavailable MIGUEL S HOLLY JONES Unavailable Unavailable MIGUEL, S HOLLY JONES Unavailable Unavailable MIGUEL, S HOLLY JONES Unavailable Unavailable MIGUEL S HOLLY JONES Unavailable Unavailable MIGUEL S HOLLY JONES Unavailable Unavailable MIGUEL S HOLLY JONES Unavailable Unavailable MIGUEL S HOLLY JONES Unavailable Unavailable MIGUEL S HOLLY JONES Unavailable Unavailable MIGUEL S HOLLY JONES Unavailable Unavailable MIGUEL S HOLLY JONES Unavailable Unavailable MIGUEL S HOLLY JONES Unavailable Unavailable MIGUEL S HOLLY JONES Unavailable Unavailable MIGUEL S HOLLY JONES Unavailable Unavailable MIGUEL S HOLLY JONES Unavailable Unavailable MIGUEL S HOLLY JONES Unavailable Unavailable MIGUEL S HOLLY JONES Unavailable Unavailable Conrad RIVERA MD Unavailable Unavailable CHIN, S HOLLY MD Unavailable Unavailable Conrad RIVERA MD Unavailable Unavailable Conrad RIVERA MD Unavailable Unavailable Conrad RIVERA MD Unavailable Unavailable Conrad RIVERA MD Unavailable Unavailable Conrad RIVERA MD Unavailable Unavailable Conrad RIVERA MD Unavailable Unavailable Conrad RIVERA MD Unavailable Unavailable Conrad RIVERA MD Unavailable Unavailable Conrad RIVERA MD Unavailable Unavailable Conrad RIVERA MD Unavailable Unavailable Conrad RIVERA MD Unavailable Unavailable Conrad RIVERA MD Unavailable Unavailable Conrad RIVERA MD Unavailable Unavailable Conrad RIVERA MD Unavailable Unavailable oTmás Lemon MD Unavailable Unavailable Tomás Lemon MD Unavailable Unavailable Tomás Lemon MD Unavailable Unavailable Tomás Lemon MD Unavailable Unavailable Tomás Lemon MD Unavailable Unavailable Tomás Lemon MD Unavailable Unavailable Tomás Lemon MD Unavailable Unavailable Tomás Lemon MD Unavailable Unavailable Tomás Lemon MD Unavailable Unavailable Tomás Lemon MD Unavailable Unavailable Tomás Lemon MD Unavailable Unavailable Tomás Lemon MD Unavailable Unavailable Tomás Lemon MD Unavailable Unavailable Tomás Lemon MD Unavailable Unavailable Tomás Lemon MD Unavailable Unavailable Tomás Lemon MD Unavailable Unavailable Tomás Lemon MD Unavailable Unavailable Tomás Lemon MD Unavailable Unavailable Tomás Lemon MD Unavailable Unavailable Tomás Lemon MD Unavailable Unavailable Tomás Lemon MD Unavailable Unavailable Tomás Lemon MD Unavailable Unavailable Tomás Lemon MD Unavailable Unavailable Tomás Lemon MD Unavailable Unavailable Tomás Lemon MD Unavailable Unavailable Tomás Lemon MD Unavailable Unavailable Tomás Lemon MD Unavailable Unavailable Tomás Lemon MD Unavailable Unavailable Tomás Lemon MD Unavailable Unavailable Tomás Lemon MD Unavailable Unavailable Tomás Lemon MD Unavailable Unavailable Tomás Lemon MD Unavailable Unavailable Tomás Lemon MD Unavailable Unavailable Tomás Lemon MD Unavailable Unavailable Tomás Lemon MD Unavailable Unavailable Tomás Lemon MD Unavailable Unavailable Tomás Lemon MD Unavailable Unavailable Tomás Lemon MD Unavailable Unavailable Tomás Lemon MD Unavailable Unavailable Tomás Lemon MD Unavailable Unavailable Tomás Lemon MD Unavailable Unavailable Tomás Lemon MD Unavailable Unavailable Tomás Lemon MD Unavailable Unavailable Tomás Lemon MD Unavailable Unavailable Tomás Lemon MD Unavailable Unavailable Tomás Lemon MD Unavailable Unavailable Tomás Lemon MD Unavailable Unavailable Tomás Lemon MD Unavailable Unavailable Tomás Lemon MD Unavailable Unavailable Tomás Lemon MD Unavailable Unavailable Tomás Lemon MD Unavailable Unavailable Tomás Lemon MD Unavailable Unavailable Tomás Lemon MD Unavailable Unavailable Tomás Lemon MD Unavailable Unavailable Fish, J Reed Unavailable Unavailable Fish, J Reed Unavailable Unavailable Fish, J Reed Unavailable Unavailable Fish, J Reed Unavailable Unavailable Fish, J Reed Unavailable Unavailable Fish, J Reed Unavailable Unavailable Fish, J Reed Unavailable Unavailable Fish, J Reed Unavailable Unavailable Fish, J Reed Unavailable Unavailable Fish, J Reed Unavailable Unavailable Fish, J Reed Unavailable Unavailable Fish, J Reed Unavailable Unavailable Fish, J Reed Unavailable Unavailable Fish, J Reed Unavailable Unavailable Fish, J Reed Unavailable Unavailable Fish, J Reed Unavailable Unavailable Fish, J Reed Unavailable Unavailable Fish, J Reed Unavailable Unavailable Fish, J Reed Unavailable Unavailable Fish, J Reed Unavailable Unavailable Fish, J Reed Unavailable Unavailable Fish, J Reed Unavailable Unavailable Fish, J Reed Unavailable Unavailable Fish, J Reed Unavailable Unavailable Fish, J Reed Unavailable Unavailable Fish, J Reed Unavailable Unavailable Fish, J Reed Unavailable Unavailable Fish, J Reed Unavailable Unavailable Fish, J Reed Unavailable Unavailable Fish, J Reed Unavailable Unavailable Fish, J Reed Unavailable Unavailable Fish, J Reed Unavailable Unavailable Fish, J Reed Unavailable Unavailable Fish, J Reed Unavailable Unavailable Fish, J Reed Unavailable Unavailable Fish, J Reed Unavailable Unavailable Fish, J Reed Unavailable Unavailable Fish, J Reed Unavailable Unavailable Fish, J Reed Unavailable Unavailable Fish, J Reed Unavailable Unavailable Fish, J Reed Unavailable Unavailable Fish, J Reed Unavailable Unavailable Fish, J Reed Unavailable Unavailable Fish, J Reed Unavailable Unavailable Fish, J Reed Unavailable Unavailable Fish, J Reed Unavailable Unavailable Fish, J Reed Unavailable Unavailable Fish, J Reed Unavailable Unavailable Fish, J Reed Unavailable Unavailable Fish, J Reed Unavailable Unavailable Fish, J Reed Unavailable Unavailable Fish, J Reed Unavailable Unavailable Fish, J Reed Unavailable Unavailable Fish, J Reed Unavailable Unavailable Fish, J Reed Unavailable Unavailable Fish, J Reed Unavailable Unavailable Fish, J Reed Unavailable Unavailable Fish, J Reed Unavailable Unavailable Fish, J Reed Unavailable Unavailable Fish, J Reed Unavailable Unavailable Fish, J Reed Unavailable Unavailable Fish, J Reed Unavailable Unavailable Fish, J Reed Unavailable Unavailable Fish, J Reed Unavailable Unavailable Fish, J Reed Unavailable Unavailable Fish, J Reed Unavailable Unavailable Fish, J Reed Unavailable Unavailable Fish, J Reed Unavailable Unavailable Fish, J Reed Unavailable Unavailable Fish, J Reed Unavailable Unavailable Fish, J Reed Unavailable Unavailable Fish, J Reed Unavailable Unavailable Fish, J Reed Unavailable Unavailable Fish, J Reed Unavailable Unavailable Fish, J Reed Unavailable Unavailable Fish, J Reed Unavailable Unavailable Fish, J Reed Unavailable Unavailable Fish, J Reed Unavailable Unavailable Fish, J Reed Unavailable Unavailable Fish, J Reed Unavailable Unavailable Fish, J Reed Unavailable Unavailable Fish, J Reed Unavailable Unavailable Fish, J Reed Unavailable Unavailable Fish, J Reed Unavailable Unavailable Re-disclosure Warning The records that you are about to access may contain information from federally-assisted alcohol or drug abuse programs. If such information is present, then the following federally mandated warning applies: This information has been disclosed to you from records protected by federal confidentiality rules (42 CFR part 2). The federal rules prohibit you from making any further disclosure of this information unless further disclosure is expressly permitted by the written consent of the person to whom it pertains or as otherwise permitted by 42 CFR part 2. A general authorization for the release of medical or other information is NOT sufficient for this purpose. The Federal rules restrict any use of the information to criminally investigate or prosecute any alcohol or drug abuse patient.The records that you are about to access may contain highly sensitive health information, the redisclosure of which is protected by Article 27-F of the [facility] Public Health law. If you continue you may have access to information: Regarding HIV / AIDS; Provided by facilities licensed or operated by the [facility] Office of Mental Health; or Provided by the [facility] Office for People With Developmental Disabilities. If such information is present, then the following [facility] mandated warning applies: This information has been disclosed to you from confidential records which are protected by state law. State law prohibits you from making any further disclosure of this information without the specific written consent of the person to whom it pertains, or as otherwise permitted by law. Any unauthorized further disclosure in violation of state law may result in a fine or senior care sentence or both. A general authorization for the release of medical or other information is NOT sufficient authorization for further disc losure. Allergies and Adverse Reactions Type Description Substance Reaction Status Data Source(s ) Drug allergy Sulfa (Sulfonamide Antibiotics) Sulfa (Sulfonamide Ant ibiotics) [facility] Drug allergy oxycodone oxycodone Nausea and vomiting [place] [facility] Drug allergy morphine morphine Nausea and vomiting [place] [facility] Drug allergy codeine codeine Nausea and vomiting [place] [facility] Drug Allergy Drug Allergy NKDA MEDENT ([facility] Family History Family Member Name Family Member Gender Family Member Status Date o f Status Description Data Source(s) Unknown Unknown Problem [facility] ([facility] with valve replaced Encounters Encounter Providers Location Date Indications Data Source(s ) Outpatient Attender: Chencho Estrella MD 05/14/2021 12:00:00 AM [facility] Unknown [address] [facility] [address] 03/29/2021 12:00:00 AM EDT eC ([facility]) Outpatient Attender: TARJANICE SOUSOU MDReferrer: Anuj Randall MD _[id number] 02/25/2021 08:28:00 PM EDT [facility] Attender: TARJANICE SOUSOU MDReferrer: Anuj Randall MD _[id number] 02/25/2021 05:43:55 PM EDT [facility] Out[facility] Attender: TARJANICE SOUSOU MDReferrer: Anuj Randall MD _[id number] 02/25/2021 04:16:17 PM EDT [facility] Out[facility] Attender: TARJANICE SOUSOU MDReferrer: Anuj Randall MD [id number] 02/25/2021 04:14:58 PM EDT [facility] Out[facility] Attender: TAREK SOUSOU MDReferrer: Anuj Randall MD _[id number] 02/25/2021 03:58:38 PM EDT [facility] Out[facility] Attender: TAREK SOUSOU MDReferrer: Anuj Randall MD _[id number] 02/25/2021 03:58:38 PM EDT [facility] Out[facility] Attender: TAREK SOUSOU MDReferrer: Anuj Randall MD _[id number] 02/25/2021 03:38:50 PM EDT [facility] Out[facility] Attender: TAREK SOUSOU MDReferrer: Anuj Randall MD _[id number] 02/25/2021 03:38:42 PM EDT [facility] Out[facility] Attender: TAREK SOUSOU MDReferrer: Anuj Randall MD _[id number] 02/25/2021 02:41:30 PM EDT [facility] Out[facility] Attender: TAREK SOUSOU MDReferrer: Anuj Randall MD _[id number] 02/25/2021 02:39:55 PM EDT [facility] Out[facility] Attender: TAREK SOUSOU MDReferrer: Anuj Randall MD _[id number] 02/25/2021 02:39:08 PM EDT [facility] Out[facility] Attender: TAREK SOUSOU MDReferrer: Anuj Randall MD _[id number] 02/25/2021 01:53:24 PM EDT [facility] Out[facility] Attender: TAREK SOUSOU MDReferrer: Anuj Randall MD _[id number] 02/25/2021 01:53:16 PM EDT [facility] Out[facility] Attender: TAREK SOUSOU MDReferrer: Anuj Randall MD _[id number] 02/25/2021 04:40:48 AM EDT [facility] Out[facility] Attender: TAREK SOUSOU MDReferrer: Anuj Randall MD _[id number] 02/20/2021 09:46:34 AM EDT [facility] Attender: [facility] 02/[facility] 03:45:00 PM EDT MEDENT ([facility]) Unknown [address] [facility], [facility] [address] 02/05/2021 12:00:00 AM EDT eCW1 ([facility]) Unknown [address] [facility] [address] 02/04/2021 12:00:00 AM EDT eCW1 ([facility]) Outpatient [address] [place] [id number] 01/25/2021 12:00:00 AM EDT eCW1 ([facility]) Outpatient Attender: BARRY GALLOWAY MDReferrer: Anuj Goodwin LH_[id number] 01/18/2021 07:41:28 PM EDT [facility] Unknown [address] [facility] [address] 01/14/2021 12:00:00 AM EDT eCW1 ([facility]) Outpatient Attender: Chencho Estrella MDReferrer: James cobos MD [id number] 01/11/2021 12:00:00 AM [facility] Outpatient Attender: Jethro Box MDReferrer: Anuj Randall MD LH _[id number] 01/08/2021 06:29:05 PM EDT [facility] [address] [facility] [address] 01/08/2021 12:00:00 AM EDT eCW1 ([facility]) Outpatient Attender: J Luis Carrasquillo MDReferrer: Anuj Randall MD L [id number] 01/07/2021 12:24:47 PM EDT [facility] [address] [facility] [place] [address] 01/05/2021 12:00:00 AM EDT eCW1 ([facility]) Outpatient Attender: J Luis Carrasquillo MDReferrer: Anuj Randall MD L [id number] 01/02/2021 10:01:35 AM EDT [facility] Out[facility] Attender: J Luis Carrasquillo MDReferrer: Anuj Randall MD 12/31/2020 11:22:24 AM EDT [facility] Attender: J Luis Carrasquillo MDReferrer: Anuj Randall MD 12/31/2020 11:17:03 AM EDT [facility] Out[facility] Attender: J Luis Carrasquillo MDReferrer: Anuj Randall MD 12/31/2020 11:16:26 AM EDT [facility] Out[facility] Attender: J Luis Carrasquillo MDReferrer: Anuj Randall MD 12/31/2020 11:15:11 AM EDT [facility] [address] [facility] [address] 12/31/2020 12:00:00 AM EDT eCW1 ([facility]) Unknown [address] [facility] [address] 12/30/2020 12:00:00 AM EDT eCW1 ([facility]) Outpatient Attender: Chencho Estrella MDReferrer: James cobos MD 12/28/2020 12:00:00 AM [facility] Outpatient Attender: Holly Piper/Amanda/Dylan/Jay richard 12/24/2020 10:30:00 AM EDT MEDENT ([facility] Unknown [address] [facility] [address] 12/24/2020 12:00:00 AM EDT eCW1 ([facility]) Outpatient Attender: J Luis Carrasquillo MDReferrer: Anuj Randall MD 12/18/2020 12:25:52 PM EDT [facility] Out[facility] Referrer: Anuj Randall MD 12/18/2020 12:13:51 PM E DT [facility] Outpatient 12/18/2020 12:08:30 PM EDT [facility] [address] [facility] [address] 12/10/2020 12:00:00 AM EDT eCW1 ([facility]) Unknown [address] [facility] [address] 12/09/2020 12:00:00 AM EDT eCW1 ([facility]) Office Visit Attender: James Piper/Amanda/Dylan/Re indl 12/07/2020 03:45:00 PM EDT MED[facility] ([facility]) Unknown [address] [facility] [address] 12/04/2020 12:00:00 AM EDT eCW1 ([facility]) Unknown [address] [facility] [address] 12/01/2020 12:00:00 AM EDT eCW1 ([facility]) Outpatient Attender: Holly Piper/Orford/Dylan/R eindl 11/28/2020 01:23:00 AM EDT MEDENT ([facility]) Outpatient Attender: Holly Piper/Orford/Dylan/R eindl 11/27/2020 01:23:00 AM EDT MEDENT ([facility]) Outpatient Attender: ADALID St/Orford/Dylan/Reindl 11/25/2020 01:23:00 AM EDT MED[facility] ([facility] Unknown [address] [facility] [address] 11/05/2020 12:00:00 AM EDT eCW1 ([facility]) [place]patient [address] [facility] [address] 11/05/2020 12:00:00 AM EDT eCW1 ([facility]) Unknown [address] [facility] [address] 11/05/2020 12:00:00 AM EDT eCW1 ([facility]) Outpatient Attender: James Piper/Amanda/Dylan/Re indl 11/02/2020 10:30:00 AM EDT MED[facility] ([facility] Unknown [address] [facility] [address] 10/28/2020 12:00:00 AM EDT eCW1 ([facility]) Outpatient Attender: Jmaes Piper/Amanda/Dylan/Re indl 10/16/2020 10:30:00 AM EDT [facility] ([facility] Unknown [address] [facility] [address] 10/16/2020 12:00:00 AM EDT eCW1 ([facility]) Unknown [address] [facility] [address] 10/15/2020 12:00:00 AM EDT eCW1 ([facility]) [place] [address] [facility] [place] [address] 10/15/2020 12:00:00 AM EDT eCW1 ([facility]) Unknown [address] [facility] [address] 10/14/2020 12:00:00 AM EDT eCW1 ([facility]) Outpatient [address] [facility] [place] [address] 10/02/2020 12:00:00 AM EDT eCW1 ([facility]) Outpatient Attender: Holly Piper/Amanda/Dylan/R eindl 09/28/2020 02:30:00 PM EDT [facility] ([facility] [place] [address] [facility] [address] 09/25/2020 12:00:00 AM EDT eCW1 ([facility]) Outpatient Attender: Reed Dutton [place] Office 08/11/2020 02:30:0 0 PM EDT MEDENT ([facility] Outpatient Attender: HOLLY RIVERA MD 07/01/2020 12:00:00 AM [facility] Outpatient Attender: HOLLY RIVERA MD 06/17/2020 12:00:00 AM [facility] Outpatient Referrer: WILFREDO VELEZ MD 06/17/2020 12:0 0:00 AM EST [facility] Unknown [address] [facility] [address] 05/04/2020 12:00:00 AM EST eCW1 ([facility]) Unknown [address] [facility] [place] [address] 04/27/2020 12:00:00 AM EST eCW1 ([facility]) Unknown [address] [facility] [place] [address] 03/23/2020 12:00:00 AM EDT eCW1 ([facility]) Outpatient Attender: [facility] Office 03/12/2020 04:00:0 0 PM EDT MEDENT ([facility] Outpatient Attender: ZIGGY CLEVELAND [facility] 03/11 02:45:00 PM EDT [facility] ([facility]) Outpatient Attender: [facility] Office 03/02/2020 01:15:0 0 PM EDT MEDENT ([facility] Outpatient [facility] 02/24/2020 12:02:27 AM EDT [facility] Outpatient Attender: [facility] Office 02/11/2020 03:20:0 0 PM EDT MEDENT ([facility] Immunizations Vaccine Date Status Description Data Source(s) COVID-19 VACCINE Moderna 11/14/2020 12:00:00 AM EDT completed [facility] Vaccine Series Complete: YESThis Data wa s Submitted to [facility]. COVID-19 VACCINE Moderna 10/17/2020 12:00:00 AM EDT completed [facility] Vaccine Series Complete: NOThis Data was Submitted to [facility] [employer]. New in 2012. IIV4 02/11/2020 03:55:00 PM EDT completed MEDENT ([facility] Medications Medication Brand Name Start Date Product Form Dose Route Admi nistrative Instructions Pharmacy Instructions Status Indications Reaction Description Data Source(s) 81 mg 03/17/2021 12:00:00 AM EDT tablet,delayed release (DR/EC) 90 TAKE ONE TABLET BY MOUTH EVERY DAY TAKE ONE TABLET BY MOUTH EVERY DAY SOLD: 03/18/2021 [facility] Prednisone 5 MG Oral Tablet Prednisone 03/16/2021 12:00:00 AM EDT ORAL active [facility] (Ziggy Cleveland MD) Sertraline 50 MG Oral Tablet Sertraline HCL 03/16/2021 12:00:00 AM EDT active [facility] (Ziggy Cleveland MD) Prochlorperazine 10 MG Oral Tablet Prochlorperazine Maleate 03/16/2021 12:00:00 AM EDT active [facility] (Roxie Cleveland MD) Ondansetron 4 MG Disintegrating Oral Tablet Ondansetron 03/16/2021 12:00:00 AM EDT ORAL active [facility] (Roxie Cleveland MD) Aspirin 81 MG Delayed Release Oral Tablet Aspirin 03/16/2021 1 2:00:00 AM EDT ORAL active [facility] (Ziggy Cleveland MD) docosahexaenoic acid 120 MG / Eicosapentaenoic Acid 18 0 MG Oral Capsule Fish Oil 03/16/2021 12:00:00 AM EDT active [facility] (Ziggy Cleveland MD) Cephalexin 500 MG Oral Capsule CEPHALEXIN 03/04/2021 12:00:00 AM EDT capsule 30 TAKE ONE CAPSULE BY MOUTH THREE TIMES A DAY TAKE ONE C APSULE BY MOUTH THREE TIMES A DAY SOLD: 03/04/2021 [facility] 4 mg 03/03/2021 12:00:00 AM EDT tablet 30 TAKE TWO TABLETS BY MOUTH EVERY 6 HOURS NEEDED FOR NAUSEA OR VOMITING TAKE TWO TABLETS BY MOUTH EVERY 6 HOURS NEEDED FOR NAUSEA OR VOMITING SOLD: 03/04/2021 [facility] 50 mg 02/25/2021 12:00:00 AM EDT tablet 30 TAKE ONE TABLET BY MOUTH EVERY DAY TAKE ONE TABLET BY MOUTH EVERY DAY SOLD: 02/25/2021 [facility] 50 mg 02/25/2021 12:00:00 AM EDT tablet 30 TAKE ONE TABLET BY MOUTH EVERY DAY TAKE ONE TABLET BY MOUTH EVERY DAY SOLD: 03/25/2021 [facility] 5 mg 02/25/2021 12:00:00 AM EDT tablet 30 TAKE ONE TABLET BY MOUTH EVERY DAY TAKE ONE TABLET BY MOUTH EVERY DAY SOLD: 02/25/2021 [facility] 5 mg 02/25/2021 12:00:00 AM EDT tablet 30 TAKE ONE TABLET BY MOUTH EVERY DAY TAKE ONE TABLET BY MOUTH EVERY DAY SOLD: 03/25/2021 [facility] 2.5 mg 02/24/2021 12:00:00 AM EDT capsule 60 TAKE ONE CAPSULE BY MOUTH TWICE A DAY MAXIMUM DAILY DOSE = 2 TAKE ONE CAPSULE BY MOUTH TWICE A DAY MA XIMUM DAILY DOSE = 2 SOLD: 02/25/2021 [facility] 90 mcg/actuation 02/23/2021 12:00:00 AM EDT HFA aerosol inha ler 18 INHALE TWO PUFFS BY MOUTH FOUR TIMES A DAY NEEDED INHALE TWO PUFFS BY MOUTH FOUR TIMES A DAY NEEDED SOLD: 03/18/2021 [facility] 90 mcg/actuation 02/23/2021 12:00:00 AM EDT HFA aerosol inha ler 18 INHALE TWO PUFFS BY MOUTH FOUR TIMES A DAY NEEDED INHALE TWO PUFFS BY MOUTH FOUR TIMES A DAY NEEDED SOLD: 02/23/2021 [facility] Prednisone 10 MG Oral Tablet Prednisone 02/08/2021 12:00:00 AM EDT completed [facility] (Ziggy Cleveland MD) Amlodipine 5 MG Oral Tablet amLODIPine Besylate 5 MG amLODIP ine Besylate 5 MG 02/04/2021 12:00:00 AM EDT 1.0 {tablet} active amLODIPine Besylate 5 MG eCW1 ([facility]) Amlodipine 5 MG Oral Tablet amLODIPine Besylate 5 MG amLODIP ine Besylate 5 MG 02/04/2021 12:00:00 AM EDT 1.0 {tablet} active amLODIPine Besylate 5 MG eCW1 ([facility]) Amlodipine 5 MG Oral Tablet amLODIPine Besylate 5 MG amLODIP ine Besylate 5 MG 02/04/2021 12:00:00 AM EDT 1.0 {tablet} active amLODIPine Besylate 5 MG eCW1 ([facility]) 750 mg 02/03/2021 12:00:00 AM EDT tablet 7 TAKE ONE TABLET BY MOUTH EVERY DAY FOR 7 DAYS TAKE ONE TABLET BY MOUTH EVERY DAY FOR 7 DAYS SOLD: 02/03/2021 [facility] Meclizine Hydrochloride 25 MG Oral Tablet MECLIZINE HCL 01/28/2021 12:00:00 AM EDT tablet 28 TAKE ONE TABLET BY MOUTH EVERY 6 HOURS NEEDED FOR DIZZINESS/VERTIGO TAKE ONE TABLET BY MOUTH EVERY 6 HOURS A S NEEDED FOR DIZZINESS/VERTIGO SOLD: 01/28/2021 [facility] Blood Pressure Cuff - Blood Pressure Cuff - 01/25/2021 12:00:00 AM EDT active Blood Pressure Cuff - eCW1 ( [facility]) 5 mg 01/25/2021 12:00:00 AM EDT tablet 90 TAKE 1 TABLET BY MOUTH ONCE A DAY TAKE 1 TABLET BY MOUTH ONCE A DAY SOLD: 01/26/2021 [facility] Blood Pressure Cuff - Blood Pressure Cuff - 01/25/2021 12:00:00 AM EDT active Blood Pressure Cuff - eCW1 ( [facility]) Blood Pressure Cuff - Blood Pressure Cuff - 01/25/2021 12:00:00 AM EDT active Blood Pressure Cuff - eCW1 ( [facility]) 25 mg 01/25/2021 12:00:00 AM EDT tablet,chewable 30 CHEW ONE TABLET BY MOUTH EVERY DAY NEEDED CHEW ONE TABLET BY MOUTH EVERY DAY NEEDED SOLD: 01/26/2021 [facility] Blood Pressure Cuff - Blood Pressure Cuff - 01/25/2021 12:00:00 AM EDT active Blood Pressure Cuff - eCW1 ( [facility]) 100,000 unit/mL 01/20/2021 12:00:00 AM EDT suspension 105 SWISH AND SWALLOW 5MLS [1 TEASPOONFUL] BY MOUTH THREE TIMES A DAY FOR 7 DAYS SWISH AND SWALLOW 5MLS [1 TEASPOONFUL] BY MOUTH THREE TIMES A DAY FOR 7 DAYS SOLD: 01/21/2021 [facility] 300 mg 01/20/2021 12:00:00 AM EDT capsule 270 TAKE ONE CAPSULE BY MOUTH THREE TIMES A DAY TAKE ONE CAPSULE BY MOUTH THREE TIMES A DAY SOLD: 01/21/2021 [facility] Prednisone 5 MG Oral Tablet predniSONE 5 MG predniSONE 5 MG 01/18/2021 12:00:00 AM EDT 1.0 {tablet} active predniSONE 5 MG eCW1 ([facility]) Prednisone 5 MG Oral Tablet predniSONE 5 MG predniSONE 5 MG 01/18/2021 12:00:00 AM EDT 1.0 {tablet} active predniSONE 5 MG eCW1 ([facility]) Prednisone 5 MG Oral Tablet predniSONE 5 MG predniSONE 5 MG 01/18/2021 12:00:00 AM EDT 1.0 {tablet} active predniSONE 5 MG eCW1 ([facility]) Prednisone 5 MG Oral Tablet predniSONE 5 MG predniSONE 5 MG 01/18/2021 12:00:00 AM EDT 1.0 {tablet} active predniSONE 5 MG eCW1 ([facility]) Prednisone 5 MG Oral Tablet predniSONE 5 MG predniSONE 5 MG 01/18/2021 12:00:00 AM EDT 1.0 {tablet} active predniSONE 5 MG eCW1 ([facility]) 750 mg 01/01/2021 12:00:00 AM EDT tablet 2 TAKE 1 TABLET [750MG] BY MOUTH DAILY AT 6:00AM TAKE 1 TABLET [750MG] BY MOUTH DAILY AT 6:00AM SOLD: [facility] 75 mg 01/01/2021 12:00:00 AM EDT tablet 30 TAKE 1 TABLET [75MG] BY MOUTH DAILY TAKE 1 TABLET [75MG] BY MOUTH DAILY SOLD: 01/03/2021 [facility] 25 mg 01/01/2021 12:00:00 AM EDT tablet extended release 24 hr 30 TAKE 1 TABLET BY MOUTH DAILY TAKE 1 TABLET BY MOUTH DAILY SOLD: 01/03/2021 [facility] Meclizine Hydrochloride 25 MG Oral Tablet MECLIZINE HCL 01/01/2021 12:00:00 AM EDT tablet 28 TAKE 1 TABLET [2 5MG] BY MOUTH EVERY 6 HOURS NEEDED FOR DIZZINESS/VERTIGO TAKE 1 TABLET [25MG] BY MOUTH EVERY 6 HO URS NEEDED FOR DIZZINESS/VERTIGO SOLD: 01/03/2021 [facility] 120 ACTUAT Fluticasone propionate 0.23 M G/ACTUAT / salmeterol 0.021 MG/ACTUAT Metered Dose Inhaler [Advair] 230-21 mcg/actuation FLUTICASONE PROPION/SALMETEROL 12/25/2020 12:00:00 AM EDT HFA aerosol inhaler 36 INHALE TWO PUFFS BY MOUTH TWICE A DAY INHALE TWO PUFFS BY MOUTH TWICE A DAY SOLD: 03/25/2021 [facility] 120 ACTUAT Fluticasone propionate 0.23 M G/ACTUAT / salmeterol 0.021 MG/ACTUAT Metered Dose Inhaler [Advair] 230-21 mcg/actuation FLUTICASONE PROPION/SALMETEROL 12/25/2020 12:00:00 AM EDT HFA aerosol inhaler 36 INHALE TWO PUFFS BY MOUTH TWICE A DAY INHALE TWO PUFFS BY MOUTH TWICE A DAY SOLD: 12/27/2020 [facility] 120 ACTUAT Fluticasone propionate 0.23 M G/ACTUAT / salmeterol 0.021 MG/ACTUAT Metered Dose Inhaler [Advair] Advair HFA 12/24/2020 12:00:00 AM EDT RESPIRATORY active [facility] ( [facility], ) 300 mg 12/22/2020 12:00:00 AM EDT capsule 90 TAKE ONE CAPSULE BY MOUTH THREE TIMES A DAY TAKE ONE CAPSULE BY MOUTH THREE TIMES A DAY SOLD: 12/22/2020 [facility] 100 mg 12/17/2020 12:00:00 AM EDT tablet 30 TAKE ONE TABLET BY MOUTH EVERY DAY MAXIMUM DAILY DOSE = 1 TAKE ONE TABLET BY MOUTH EVERY DAY MAXIM UM DAILY DOSE = 1 SOLD: 12/17/2020 [facility] 10 mg 12/16/2020 12:00:00 AM EDT tablet 30 TAKE ONE TABLET BY MOUTH EVERY 8 HOURS NEEDED FOR NAUSEA OR VOMITING TAKE ONE TABLET BY MOUTH EVERY 8 HOURS A S NEEDED FOR NAUSEA OR VOMITING SOLD: 02/03/2021 [facility] 10 mg 12/16/2020 12:00:00 AM EDT tablet 30 TAKE ONE TABLET BY MOUTH EVERY 8 HOURS NEEDED FOR NAUSEA OR VOMITING TAKE ONE TABLET BY MOUTH EVERY 8 HOURS A S NEEDED FOR NAUSEA OR VOMITING SOLD: 12/16/2020 [facility] 10 mg 12/16/2020 12:00:00 AM EDT tablet 30 TAKE ONE TABLET BY MOUTH EVERY 8 HOURS NEEDED FOR NAUSEA OR VOMITING TAKE ONE TABLET BY MOUTH EVERY 8 HOURS A S NEEDED FOR NAUSEA OR VOMITING SOLD: 03/04/2021 [facility] 75 mcg 12/16/2020 12:00:00 AM EDT tablet 30 TAKE ONE TABLET BY MOUTH EVERY MORNING ON AN EMPTY STOMACH TAKE ONE TABLET BY MOUTH EVERY MORNING O N AN EMPTY STOMACH SOLD: 12/17/2020 [facility] 4 mg 12/15/2020 12:00:00 AM EDT tablet 30 TAKE 1 TABLET BY MOUTH 3 TIMES A DAY NEEDED FOR NAUSEA AND VOMITING TAKE 1 TABLET BY MOUTH 3 TIMES A DAY NEEDED FOR NAUSEA AND VOMITING SOLD: 02/03/2021 [facility] 4 mg 12/15/2020 12:00:00 AM EDT tablet 30 TAKE 1 TABLET BY MOUTH 3 TIMES A DAY NEEDED FOR NAUSEA AND VOMITING TAKE 1 TABLET BY MOUTH 3 TIMES A DAY NEEDED FOR NAUSEA AND VOMITING SOLD: 12/15/2020 [facility] 5 mg 12/09/2020 12:00:00 AM EDT tablet 100 TAKE ONE TABLET BY MOUTH SIX TIMES A DAY NEEDED FOR PAIN MAXIMUM DAILY DOSE = 6 TAKE ONE TABLET BY MOUTH SIX TIMES A DAY NEEDED FOR PAIN MAXIMUM DAILY DOSE = 6 SOLD: 12/10/2020 [facility] 80 mg 12/09/2020 12:00:00 AM EDT tablet 30 TAKE 1 TABLET BY MOUTH ONCE A DAY TAKE 1 TABLET BY MOUTH ONCE A DAY SOLD: 02/21/2021 [facility] 80 mg 12/09/2020 12:00:00 AM EDT tablet 30 TAKE 1 TABLET BY MOUTH ONCE A DAY TAKE 1 TABLET BY MOUTH ONCE A DAY SOLD: 12/10/2020 [facility] 80 mg 12/09/2020 12:00:00 AM EDT tablet 30 TAKE 1 TABLET BY MOUTH ONCE A DAY TAKE 1 TABLET BY MOUTH ONCE A DAY SOLD: 01/21/2021 [facility] 80 mg 12/09/2020 12:00:00 AM EDT tablet 30 TAKE 1 TABLET BY MOUTH ONCE A DAY TAKE 1 TABLET BY MOUTH ONCE A DAY SOLD: 03/28/2021 [facility] Nystatin 520201 UNT/ML Oral Suspension Nystatin 423218 UNIT/ML Nystatin 364153 UNIT/ML 12/07/2020 12:00:00 AM EDT 4.0 {ml} active Nystatin 343465 UNIT/ML eCW1 ([facility]) Nystatin 654466 UNT/ML Oral Suspension Nystatin 096412 UNIT/ML Nystatin 618166 UNIT/ML 12/07/2020 12:00:00 AM EDT 4.0 {ml} active Nystatin 686451 UNIT/ML eCW1 ([facility]) Nystatin 806302 UNT/ML Oral Suspension Nystatin 264766 UNIT/ML Nystatin 017885 UNIT/ML 12/07/2020 12:00:00 AM EDT 4.0 {ml} active Nystatin 763548 UNIT/ML eCW1 ([facility]) Nystatin 543097 UNT/ML Oral Suspension Nystatin 696180 UNIT/ML Nystatin 716076 UNIT/ML 12/07/2020 12:00:00 AM EDT 4.0 {ml} active Nystatin 011467 UNIT/ML eCW1 ([facility]) Nystatin 128213 UNT/ML Oral Suspension Nystatin 588897 UNIT/ML Nystatin 339312 UNIT/ML 12/07/2020 12:00:00 AM EDT 4.0 {ml} active Nystatin 011629 UNIT/ML eCW1 ([facility]) 100,000 unit/mL 12/07/2020 12:00:00 AM EDT suspension 160 SWISH AND SPIT 4MLS FOUR TIMES A DAY FOR 10 DAYS SWISH AND SPIT 4MLS FOUR TIMES A DAY FOR 10 DAYS SOLD: 12/08/2020 [facility] Nystatin 577462 UNT/ML Oral Suspension Nystatin 617457 UNIT/ML Nystatin 504522 UNIT/ML 12/07/2020 12:00:00 AM EDT 4.0 {ml} active Nystatin 291370 UNIT/ML eCW1 ([facility]) Nystatin 595180 UNT/ML Oral Suspension Nystatin 587269 UNIT/ML Nystatin 378237 UNIT/ML 12/07/2020 12:00:00 AM EDT 4.0 {ml} active Nystatin 672454 UNIT/ML eCW1 ([facility]) Nystatin 386786 UNT/ML Oral Suspension Nystatin 600088 UNIT/ML Nystatin 534376 UNIT/ML 12/07/2020 12:00:00 AM EDT 4.0 {ml} active Nystatin 383813 UNIT/ML eCW1 ([facility]) Nystatin 946209 UNT/ML Oral Suspension Nystatin 984384 UNIT/ML Nystatin 600823 UNIT/ML 12/07/2020 12:00:00 AM EDT 4.0 {ml} active Nystatin 371364 UNIT/ML eCW1 ([facility]) Nystatin 050361 UNT/ML Oral Suspension Nystatin 434560 UNIT/ML Nystatin 619198 UNIT/ML 12/07/2020 12:00:00 AM EDT 4.0 {ml} active Nystatin 577044 UNIT/ML eCW1 ([facility]) Nystatin 662322 UNT/ML Oral Suspension Nystatin 083901 UNIT/ML Nystatin 613592 UNIT/ML 12/07/2020 12:00:00 AM EDT 4.0 {ml} active Nystatin 530999 UNIT/ML eCW1 ([facility]) Nystatin 747705 UNT/ML Oral Suspension Nystatin 493511 UNIT/ML Nystatin 004354 UNIT/ML 12/07/2020 12:00:00 AM EDT 4.0 {ml} active Nystatin 398261 UNIT/ML eCW1 ([facility]) Nystatin 362910 UNT/ML Oral Suspension Nystatin 818003 UNIT/ML Nystatin 078057 UNIT/ML 12/07/2020 12:00:00 AM EDT 4.0 {ml} active Nystatin 386849 UNIT/ML eCW1 ([facility]) Nystatin 820652 UNT/ML Oral Suspension Nystatin 363177 UNIT/ML Nystatin 663253 UNIT/ML 12/07/2020 12:00:00 AM EDT 4.0 {ml} active Nystatin 798773 UNIT/ML eCW1 ([facility]) 120 ACTUAT Fluticasone propionate 0.23 M G/ACTUAT / salmeterol 0.021 MG/ACTUAT Metered Dose Inhaler [Advair] Advair HFA 230-21 MCG/ACT Advair HFA 230-21 MCG/ACT 12/03/2020 12:00:00 AM EDT 2.0 {puffs} activ e Advair HFA 230-21 MCG/ACT eCW1 ([facility]) Acetaminophen 325 MG UNK 12/03/2020 12:00:00 AM EDT 2. 0 {capsule_as_needed} suspended Acetaminophen 325 MG eCW1 ([facility]) Acetaminophen 325 MG UNK 12/03/2020 12:00:00 AM EDT 2. 0 {capsule_as_needed} active Acetaminophen 325 MG eCW1 ([facility]) 120 ACTUAT Fluticasone propionate 0.23 M G/ACTUAT / salmeterol 0.021 MG/ACTUAT Metered Dose Inhaler [Advair] Advair HFA 230-21 MCG/ACT Advair HFA 230-21 MCG/ACT 12/03/2020 12:00:00 AM EDT 2.0 {puffs} activ e Advair HFA 230-21 MCG/ACT eCW1 ([facility]) PredniSONE ([facility]) UNK 12/03/2020 12:00:00 AM EDT active PredniSONE ([facility]) eCW1 ([facility]) 120 ACTUAT Fluticasone propionate 0.23 M G/ACTUAT / salmeterol 0.021 MG/ACTUAT Metered Dose Inhaler [Advair] Advair HFA 230-21 MCG/ACT Advair HFA 230-21 MCG/ACT 12/03/2020 12:00:00 AM EDT 2.0 {puffs} activ e Advair HFA 230-21 MCG/ACT eCW1 ([facility]) 120 ACTUAT Fluticasone propionate 0.23 M G/ACTUAT / salmeterol 0.021 MG/ACTUAT Metered Dose Inhaler [Advair] Advair HFA 230-21 MCG/ACT Advair HFA 230-21 MCG/ACT 12/03/2020 12:00:00 AM EDT 2.0 {puffs} suspe nded Advair HFA 230-21 MCG/ACT eCW1 ([facility]) Acetaminophen 325 MG UNK 12/03/2020 12:00:00 AM EDT 2. 0 {capsule_as_needed} active Acetaminophen 325 MG eCW1 ([facility]) PredniSONE ([facility]) UNK 12/03/2020 12:00:00 AM EDT active PredniSONE ([facility]) eCW1 ([facility]) Lorazepam 0.5 MG Oral Tablet LORazepam 0.5 MG LORazepam 0.5 MG 12/03/2020 12:00:00 AM EDT 1.0 {tablet_at_bedtime_as_needed} active LORazepam 0.5 MG eCW1 ([facility]) 120 ACTUAT Fluticasone propionate 0.23 M G/ACTUAT / salmeterol 0.021 MG/ACTUAT Metered Dose Inhaler [Advair] Advair HFA 230-21 MCG/ACT Advair HFA 230-21 MCG/ACT 12/03/2020 12:00:00 AM EDT 2.0 {puffs} suspe nded Advair HFA 230-21 MCG/ACT eCW1 ([facility]) 12 HR Guaifenesin 600 MG Extended Release Oral Tablet [Mucinex] Mucinex 600 MG Mucinex 600 MG 12/03/2020 12:00:00 AM EDT 1.0 {tablet_as_needed} active Mucinex 600 MG eCW1 ([facility]) Acetaminophen 325 MG UNK 12/03/2020 12:00:00 AM EDT 2. 0 {capsule_as_needed} active Acetaminophen 325 MG eCW1 ([facility]) Levofloxacin 750 MG Oral Tablet levoFLOXacin 750 MG levoFLOX acin 750 MG 12/03/2020 12:00:00 AM EDT 1.0 {tablet} active levoFLOXacin 750 MG eCW1 ([facility]) Acetaminophen 325 MG UNK 12/03/2020 12:00:00 AM EDT 2. 0 {capsule_as_needed} active Acetaminophen 325 MG eCW1 ([facility]) PredniSONE ([facility]) UNK 12/03/2020 12:00:00 AM EDT suspended PredniSONE ([facility]) eCW1 ([facility]) 120 ACTUAT Fluticasone propionate 0.23 M G/ACTUAT / salmeterol 0.021 MG/ACTUAT Metered Dose Inhaler [Advair] Advair HFA 230-21 MCG/ACT Advair HFA 230-21 MCG/ACT 12/03/2020 12:00:00 AM EDT 2.0 {puffs} activ e Advair HFA 230-21 MCG/ACT eCW1 ([facility]) 12 HR Guaifenesin 600 MG Extended Release Oral Tablet [Mucinex] Mucinex 600 MG Mucinex 600 MG 12/03/2020 12:00:00 AM EDT 1.0 {tablet_as_needed} active Mucinex 600 MG eCW1 ([facility]) Ibuprofen 600 MG Oral Tablet Ibuprofen 600 MG 12/03/2020 12:00:00 AM E DT active Ibuprofen 600 MG eCW1 ([facility]) Acetaminophen 325 MG Oral Tablet ACETAMINOPHEN 12/03/2020 12:0 0:00 AM EDT tablet 60 TAKE 2 TABLETS [650M G] BY MOUTH EVERY 4 HOURS NEEDED FOR MILD PAIN (PS 1-4) TAKE 2 TABLETS [650MG] BY MOUTH EVERY 4 HOURS NEEDED FOR MILD PAIN (PS 1-4) SOLD: 12/03/2020 [facility] 120 ACTUAT Fluticasone propionate 0.23 M G/ACTUAT / salmeterol 0.021 MG/ACTUAT Metered Dose Inhaler [Advair] Advair HFA 230-21 MCG/ACT Advair HFA 230-21 MCG/ACT 12/03/2020 12:00:00 AM EDT 2.0 {puffs} activ e Advair HFA 230-21 MCG/ACT eCW1 ([facility]) 120 ACTUAT Fluticasone propionate 0.23 M G/ACTUAT / salmeterol 0.021 MG/ACTUAT Metered Dose Inhaler [Advair] Advair HFA 230-21 MCG/ACT Advair HFA 230-21 MCG/ACT 12/03/2020 12:00:00 AM EDT 2.0 {puffs} activ e Advair HFA 230-21 MCG/ACT eCW1 ([facility]) PredniSONE ([facility]) UNK 12/03/2020 12:00:00 AM EDT active PredniSONE ([facility]) eCW1 ([facility]) PredniSONE ([facility]) UNK 12/03/2020 12:00:00 AM EDT suspended PredniSONE ([facility]) eCW1 ([facility]) PredniSONE ([facility]) UNK 12/03/2020 12:00:00 AM EDT active PredniSONE ([facility]) eCW1 ([facility]) Levofloxacin 750 MG Oral Tablet levoFLOXacin 750 MG levoFLOX acin 750 MG 12/03/2020 12:00:00 AM EDT 1.0 {tablet} active levoFLOXacin 750 MG eCW1 ([facility]) 50 mg 12/03/2020 12:00:00 AM EDT tablet 15 TAKE 1 TABLET [50MG] BY MOUTH EVERY 8 HOURS NEEDED FOR SEVERE PAIN (PS 8-10) MAXIMUM DAILY DOSE = 3 TABLETS TAKE 1 TABLET [50MG] BY MOUTH EVERY 8 HO URS NEEDED FOR SEVERE PAIN (PS 8-10) MAXIMUM DAILY DOSE = 3 TABLETS SOLD: 12/03/2020 [facility] PredniSONE ([facility]) UNK 12/03/2020 12:00:00 AM EDT active PredniSONE ([facility]) eCW1 ([facility]) Acetaminophen 325 MG UNK 12/03/2020 12:00:00 AM EDT 2. 0 {capsule_as_needed} active Acetaminophen 325 MG eCW1 ([facility]) 750 mg 12/03/2020 12:00:00 AM EDT tablet 8 TAKE 1 TABLET BY MOUTH DAILY TAKE 1 TABLET BY MOUTH DAILY SOLD: 12/03/2020 [facility] 20 mg 12/03/2020 12:00:00 AM EDT capsule,delayed release (DR/EC) 30 TAKE 1 CAPSULE [20MG] BY MOUTH DAILY TAKE 1 CAPSULE [20MG] BY MOUTH DAILY SOLD: 12/03/2020 [facility] 12 HR Guaifenesin 600 MG Extended Release Oral Tablet [Mucinex] Mucinex 600 MG Mucinex 600 MG 12/03/2020 12:00:00 AM EDT 1.0 {tablet_as_needed} active Mucinex 600 MG eCW1 ([facility]) PredniSONE ([facility]) UNK 12/03/2020 12:00:00 AM EDT suspended PredniSONE ([facility]) eCW1 ([facility]) Acetaminophen 325 MG UNK 12/03/2020 12:00:00 AM EDT 2. 0 {capsule_as_needed} active Acetaminophen 325 MG eCW1 ([facility]) 12 HR Guaifenesin 600 MG Extended Release Oral Tablet [Mucinex] Mucinex 600 MG Mucinex 600 MG 12/03/2020 12:00:00 AM EDT 1.0 {tablet_as_needed} active Mucinex 600 MG eCW1 ([facility]) Acetaminophen 325 MG UNK 12/03/2020 12:00:00 AM EDT 2. 0 {capsule_as_needed} suspended Acetaminophen 325 MG eCW1 ([facility]) PredniSONE ([facility]) UNK 12/03/2020 12:00:00 AM EDT active PredniSONE ([facility]) eCW1 ([facility]) PredniSONE ([facility]) UNK 12/03/2020 12:00:00 AM EDT active PredniSONE ([facility]) eCW1 ([facility]) tramadol hydrochloride 50 MG Oral Tablet traMADol HCl 50 MG traMADol HCl 50 MG 12/03/2020 12:00:00 AM EDT 1.0 {tablet_as_needed} active traMADol HCl 50 MG eCW1 ([facility]) Acetaminophen 325 MG UNK 12/03/2020 12:00:00 AM EDT 2. 0 {capsule_as_needed} suspended Acetaminophen 325 MG eCW1 ([facility]) Acetaminophen 325 MG UNK 12/03/2020 12:00:00 AM EDT 2. 0 {capsule_as_needed} active Acetaminophen 325 MG eCW1 ([facility]) tramadol hydrochloride 50 MG Oral Tablet traMADol HCl 50 MG traMADol HCl 50 MG 12/03/2020 12:00:00 AM EDT 1.0 {tablet_as_needed} active traMADol HCl 50 MG eCW1 ([facility]) 120 ACTUAT Fluticasone propionate 0.23 M G/ACTUAT / salmeterol 0.021 MG/ACTUAT Metered Dose Inhaler [Advair] Advair HFA 230-21 MCG/ACT Advair HFA 230-21 MCG/ACT 12/03/2020 12:00:00 AM EDT 2.0 {puffs} activ e Advair HFA 230-21 MCG/ACT eCW1 ([facility]) PredniSONE ([facility]) UNK 12/03/2020 12:00:00 AM EDT active PredniSONE ([facility]) eCW1 ([facility]) 600 mg 12/03/2020 12:00:00 AM EDT tablet 60 TAKE 1 TABLET [600MG] BY MOUTH EVERY 6 HOURS NEEDED FOR MODERATE PAIN (PS 5-7) TAKE 1 TABLET [600MG] BY MOUTH EVERY 6 HOURS NEEDED FOR MODERATE PAIN (PS 5-7) SOLD: 12/03/2020 [facility] 12 HR Guaifenesin 600 MG Extended Release Oral Tablet [Mucinex] Mucinex 600 MG Mucinex 600 MG 12/03/2020 12:00:00 AM EDT 1.0 {tablet_as_needed} active Mucinex 600 MG eCW1 ([facility]) 12 HR Guaifenesin 600 MG Extended Release Oral Tablet [Mucinex] Mucinex 600 MG Mucinex 600 MG 12/03/2020 12:00:00 AM EDT 1.0 {tablet_as_needed} active Mucinex 600 MG eCW1 ([facility]) PredniSONE ([facility]) UNK 12/03/2020 12:00:00 AM EDT active PredniSONE ([facility]) eCW1 ([facility]) Acetaminophen 325 MG UNK 12/03/2020 12:00:00 AM EDT 2. 0 {capsule_as_needed} active Acetaminophen 325 MG eCW1 ([facility]) 10 mg 12/03/2020 12:00:00 AM EDT tablet 44 TAKE 4 TABLETS (40 MG) BY MOUTH ONCE DAILY FOR 4 DAYS, TAKE 3 TABLETS (30 MG) ONCE DAILY FOR 4 DAYS, TAKE 2 TABLETS (20 MG) ONCE DAILY FOR 4 DAYS, TAKE 1 TABLET (10 MG) ONCE DAILY FOR 8 DAYS TAKE 4 TABLETS (40 MG) BY MOUTH ONCE SUKI LY FOR 4 DAYS, TAKE 3 TABLETS (30 MG) ONCE DAILY FOR 4 DAYS, TAKE 2 TABLETS (20 MG) ONCE DAILY FOR 4 DAYS, TAKE 1 TABLET (10 MG) ONCE DAILY FOR 8 DAYS SOLD: 12/03/2020 [facility] 120 ACTUAT Fluticasone propionate 0.23 M G/ACTUAT / salmeterol 0.021 MG/ACTUAT Metered Dose Inhaler [Advair] Advair HFA 230-21 MCG/ACT Advair HFA 230-21 MCG/ACT 12/03/2020 12:00:00 AM EDT 2.0 {puffs} activ e Advair HFA 230-21 MCG/ACT eCW1 ([facility]) PredniSONE (Ritesh) UNK 12/03/2020 12:00:00 AM EDT suspended PredniSONE (Ritesh) eCW1 ([facility]) 12 HR Guaifenesin 600 MG Extended Release Oral Tablet GUAIFE NESIN 12/03/2020 12:00:00 AM EDT tablet extended release 12hr 14 EVA E TWO TABLETS BY MOUTH TWICE A DAY TAKE TWO TABLETS BY MOUTH TWICE A DAY SOLD: 12/03/2020 [facility] 120 ACTUAT Fluticasone propionate 0.23 M G/ACTUAT / salmeterol 0.021 MG/ACTUAT Metered Dose Inhaler [Advair] 230-21 mcg/actuation FLUTICASONE PROPION/SALMETEROL 12/03/2020 12:00:00 AM EDT HFA aerosol inhaler 12 INHALE TWO PUFFS BY MOUTH TWICE A DAY INHALE TWO PUFFS BY MOUTH TWICE A DAY SOLD: 12/03/2020 [facility] Levofloxacin 750 MG Oral Tablet levoFLOXacin 750 MG levoFLOX acin 750 MG 12/03/2020 12:00:00 AM EDT 1.0 {tablet} active levoFLOXacin 750 MG eCW1 ([facility]) 0.5 mg 12/03/2020 12:00:00 AM EDT tablet 20 TAKE 1 TABLET BY MOUTH EVERY 6 HOURS NEEDED FOR VOMITING MAXIMUM DAILY DOSE = 6 TABLETS TAKE 1 TABLET BY MOUTH EVERY 6 HOURS NEEDED FOR VOMITING MAXIMUM DAILY DOSE = 6 TABLETS SOLD: 12/03/2020 [facility] Levofloxacin 750 MG Oral Tablet levoFLOXacin 750 MG levoFLOX acin 750 MG 12/03/2020 12:00:00 AM EDT 1.0 {tablet} active levoFLOXacin 750 MG eCW1 ([facility]) 12 HR Guaifenesin 600 MG Extended Release Oral Tablet [Mucinex] Mucinex 600 MG Mucinex 600 MG 12/03/2020 12:00:00 AM EDT 1.0 {tablet_as_needed} active Mucinex 600 MG eCW1 ([facility]) Ibuprofen 600 MG Oral Tablet Ibuprofen 600 MG 12/03/2020 12:00:00 AM E DT active Ibuprofen 600 MG eCW1 ([facility]) 120 ACTUAT Fluticasone propionate 0.23 M G/ACTUAT / salmeterol 0.021 MG/ACTUAT Metered Dose Inhaler [Advair] Advair HFA 230-21 MCG/ACT Advair HFA 230-21 MCG/ACT 12/03/2020 12:00:00 AM EDT 2.0 {puffs} suspe nded Advair HFA 230-21 MCG/ACT eCW1 ([facility]) Acetaminophen 325 MG UNK 12/03/2020 12:00:00 AM EDT 2. 0 {capsule_as_needed} active Acetaminophen 325 MG eCW1 ([facility]) Ibuprofen 600 MG Oral Tablet Ibuprofen 600 MG 12/03/2020 12:00:00 AM E DT active Ibuprofen 600 MG eCW1 ([facility]) 120 ACTUAT Fluticasone propionate 0.23 M G/ACTUAT / salmeterol 0.021 MG/ACTUAT Metered Dose Inhaler [Advair] Advair HFA 230-21 MCG/ACT Advair HFA 230-21 MCG/ACT 12/03/2020 12:00:00 AM EDT 2.0 {puffs} suspe nded Advair HFA 230-21 MCG/ACT eCW1 ([facility]) Lorazepam 0.5 MG Oral Tablet LORazepam 0.5 MG LORazepam 0.5 MG 12/03/2020 12:00:00 AM EDT 1.0 {tablet_at_bedtime_as_needed} active LORazepam 0.5 MG eCW1 ([facility]) Acetaminophen 325 MG UNK 12/03/2020 12:00:00 AM EDT 2. 0 {capsule_as_needed} suspended Acetaminophen 325 MG eCW1 ([facility]) PredniSONE (Ritesh) UNK 12/03/2020 12:00:00 AM EDT active PredniSONE ([facility]itesh) eCW1 ([facility]) 120 ACTUAT Fluticasone propionate 0.23 M G/ACTUAT / salmeterol 0.021 MG/ACTUAT Metered Dose Inhaler [Advair] Advair HFA 230-21 MCG/ACT Advair HFA 230-21 MCG/ACT 12/03/2020 12:00:00 AM EDT 2.0 {puffs} activ e Advair HFA 230-21 MCG/ACT eCW1 ([facility]) Acetaminophen 325 MG UNK 12/03/2020 12:00:00 AM EDT 2. 0 {capsule_as_needed} active Acetaminophen 325 MG eCW1 ([facility]) 120 ACTUAT Fluticasone propionate 0.23 M G/ACTUAT / salmeterol 0.021 MG/ACTUAT Metered Dose Inhaler [Advair] Advair HFA 230-21 MCG/ACT Advair HFA 230-21 MCG/ACT 12/03/2020 12:00:00 AM EDT 2.0 {puffs} activ e Advair HFA 230-21 MCG/ACT eCW1 ([facility]) Ibuprofen 600 MG Oral Tablet Ibuprofen 600 MG 12/03/2020 12:00:00 AM E DT active Ibuprofen 600 MG eCW1 ([facility]) 5 mg 11/30/2020 12:00:00 AM EDT tablet 90 TAKE 1 TABLET BY MOUTH ONCE A DAY TAKE 1 TABLET BY MOUTH ONCE A DAY SOLD: 12/01/2020 [facility] Acetaminophen 325 MG / Hydrocodone Anthony trate 5 MG Oral Tablet HYDROcodone- Acetaminophen 5-325 MG HYDROcodone-Acetaminophen 5-325 MG 11/05/2020 12:00:00 AM EDT 1.0 {tablet_as_needed} active HYDROcodone-Acetaminophen 5-325 MG eCW1 ([facility]) Acetaminophen 325 MG / Hydrocodone Anthony trate 5 MG Oral Tablet HYDROcodone- Acetaminophen 5-325 MG HYDROcodone-Acetaminophen 5-325 MG 11/05/2020 12:00:00 AM EDT 1.0 {tablet_as_needed} active HYDROcodone-Acetaminophen 5-325 MG eCW1 ([facility]) Acetaminophen 325 MG / Hydrocodone Bitartrate 5 MG Ora l Tablet 5-325 mg HYDROCODONE/ACETAMINOPHEN 11/05/2020 12:00:00 AM EDT tablet 21 TAKE ONE TABLET BY MOUTH EVERY 8 HOURS NEEDED MAXIMUM DAILY DOSE = 3 TAKE ONE TABLET BY MOUTH EVERY 8 HOURS NEEDED MAXIMUM DAILY DOSE = 3 SOLD: 11/05/2020 [facility] Acetaminophen 325 MG / Hydrocodone Anthony trate 5 MG Oral Tablet HYDROcodone- Acetaminophen 5-325 MG HYDROcodone-Acetaminophen 5-325 MG 11/05/2020 12:00:00 AM EDT 1.0 {tablet_as_needed} active HYDROcodone-Acetaminophen 5-325 MG eCW1 ([facility]) 90 mcg/actuation 11/04/2020 12:00:00 AM EDT HFA aerosol inha ler 54 INHALE TWO PUFFS BY MOUTH EVERY 4 HOURS NEEDED INHALE TWO PUFFS BY MOUTH EVERY 4 HOURS NEEDED SOLD: 11/05/2020 [facility] 300 mg 10/16/2020 12:00:00 AM EDT capsule 270 TAKE 1 CAPSULE BY MOUTH THREE TIMES A DAY TAKE 1 CAPSULE BY MOUTH THREE TIMES A DAY SOLD: 10/17/2020 [facility] benzonatate 100 MG Oral Capsule BENZONATATE 09/29/2020 12:00:00 AM EDT capsule 90 TAKE ONE CAPSULE BY MOUTH THREE TIMES A DAY TAKE ONE CAPSULE BY MOUTH THREE TIMES A DAY SOLD: 09/29/2020 [facility] 5 mg 09/28/2020 12:00:00 AM EDT tablet 90 TAKE ONE TABLET BY MOUTH EVERY DAY TAKE ONE TABLET BY MOUTH EVERY DAY SOLD: 09/29/2020 [facility] benzonatate 100 MG Oral Capsule [Tessalbridger Padron] Tessalon Suki sunshine 09/28/2020 12:00:00 AM EDT ORAL active M SANDRAENT ([facility], ) 5 mg 09/28/2020 12:00:00 AM EDT tablet 90 TAKE 1 TABLET BY MOUTH ONCE A DAY TAKE 1 TABLET BY MOUTH ONCE A DAY SOLD: 09/29/2020 [facility] 80 mg 09/28/2020 12:00:00 AM EDT tablet 30 TAKE ONE TABLET BY MOUTH EVERY DAY TAKE ONE TABLET BY MOUTH EVERY DAY SOLD: 09/29/2020 [facility] 150 mg 09/01/2020 12:00:00 AM EDT tablet 90 TAKE 1 TABLET BY MOUTH ONCE A DAY TAKE 1 TABLET BY MOUTH ONCE A DAY SOLD: 09/01/2020 [facility] 150 mg 09/01/2020 12:00:00 AM EDT tablet 90 TAKE 1 TABLET BY MOUTH ONCE A DAY TAKE 1 TABLET BY MOUTH ONCE A DAY SOLD: 11/29/2020 [facility] 5 mg 08/11/2020 12:00:00 AM EDT tablet 30 TAKE ONE TABLET BY MOUTH EVERY DAY TAKE ONE TABLET BY MOUTH EVERY DAY SOLD: 08/11/2020 [facility] Technetium TC 99M Sestamibi 08/07/2020 12:00:00 AM EST completed MEDENT (Ziggy Cleveland MD) Medication administered onsite Dobutamine IV Injection 250MG 08/07/2020 12:00:00 AM EST completed MED[facility] (Ziggy welsh MD) Medication administered onsite 90 mcg/actuation 07/31/2020 12:00:00 AM EST HFA aerosol inha ler 54 INHALE TWO PUFFS BY MOUTH EVERY 4 HOURS NEEDED INHALE TWO PUFFS BY MOUTH EVERY 4 HOURS NEEDED SOLD: 08/02/2020 [facility] 300 mg 07/31/2020 12:00:00 AM EST capsule 270 TAKE ONE CAPSULE BY MOUTH THREE TIMES A DAY TAKE ONE CAPSULE BY MOUTH THREE TIMES A DAY SOLD: 08/02/2020 [facility] 300 mg 07/18/2020 12:00:00 AM EST capsule 45 TAKE ONE CAPSULE BY MOUTH THREE TIMES A DAY -NEED TO MAKE APPOINTMENT TAKE ONE CAPSULE BY MOUTH THREE TIMES A DAY -NEED TO MAKE APPOINTMENT SOLD: 07/19/2020 [facility] 75 mcg 07/13/2020 12:00:00 AM EST tablet 30 TAKE ONE TABLET BY MOUTH IN THE MORNING ON AN EMPTY STOMACH TAKE ONE TABLET BY MOUTH IN THE MORNING ON AN EMPTY STOMACH SOLD: 07/14/2020 [facility] 40 mg 05/18/2020 12:00:00 AM EST capsule,delayed release (DR/EC) 30 TAKE ONE CAPSULE BY MOUTH EVERY DAY TAKE ONE CAPSULE BY MOUTH EVERY DAY SOLD: 07/14/2020 [facility] 40 mg 05/18/2020 12:00:00 AM EST capsule,delayed release (DR/EC) 30 TAKE ONE CAPSULE BY MOUTH EVERY DAY TAKE ONE CAPSULE BY MOUTH EVERY DAY SOLD: 06/16/2020 [facility] 5 mg 05/18/2020 12:00:00 AM EST tablet 30 TAKE ONE TABLET BY MOUTH EVERY DAY TAKE ONE TABLET BY MOUTH EVERY DAY SOLD: 05/19/2020 [facility] 5 mg 05/18/2020 12:00:00 AM EST tablet 30 TAKE ONE TABLET BY MOUTH EVERY DAY TAKE ONE TABLET BY MOUTH EVERY DAY SOLD: 06/16/2020 [facility] 5 mg 05/18/2020 12:00:00 AM EST tablet 30 TAKE ONE TABLET BY MOUTH EVERY DAY TAKE ONE TABLET BY MOUTH EVERY DAY SOLD: 07/14/2020 [facility] 40 mg 05/18/2020 12:00:00 AM EST capsule,delayed release (DR/EC) 30 TAKE ONE CAPSULE BY MOUTH EVERY DAY TAKE ONE CAPSULE BY MOUTH EVERY DAY SOLD: 05/19/2020 [facility] 75 mcg 05/15/2020 12:00:00 AM EST tablet 30 TAKE ONE TABLET BY MOUTH EVERY MORNING ON EMPTY STOMACH TAKE ONE TABLET BY MOUTH EVERY MORNING O N EMPTY STOMACH SOLD: 06/14/2020 [facility] 75 mcg 05/15/2020 12:00:00 AM EST tablet 30 TAKE ONE TABLET BY MOUTH EVERY MORNING ON EMPTY STOMACH TAKE ONE TABLET BY MOUTH EVERY MORNING O N EMPTY STOMACH SOLD: 05/16/2020 [facility] 90 mcg/actuation 05/04/2020 12:00:00 AM EST HFA aerosol inha ler 54 INHALE TWO PUFFS BY MOUTH EVERY 4 HOURS NEEDED INHALE TWO PUFFS BY MOUTH EVERY 4 HOURS NEEDED SOLD: 05/05/2020 [facility] 300 mg 04/25/2020 12:00:00 AM EST capsule 90 TAKE ONE CAPSULE BY MOUTH THREE TIMES A DAY TAKE ONE CAPSULE BY MOUTH THREE TIMES A DAY SOLD: 05/24/2020 [facility] 300 mg 04/25/2020 12:00:00 AM EST capsule 90 TAKE ONE CAPSULE BY MOUTH THREE TIMES A DAY TAKE ONE CAPSULE BY MOUTH THREE TIMES A DAY SOLD: 04/26/2020 [facility] 300 mg 04/25/2020 12:00:00 AM EST capsule 90 TAKE ONE CAPSULE BY MOUTH THREE TIMES A DAY TAKE ONE CAPSULE BY MOUTH THREE TIMES A DAY SOLD: 06/21/2020 [facility] 0.12 % 03/30/2020 12:00:00 AM EST mouthwash 473 RINSE MOUTH WITH 15MLS [1 CAPFUL] FOR 30 SECONDS THEN SPIT IN THE MORNING AND EVENING AFTER TOOTHBRUSHING, DO NOT SWALLOW RINSE MOUTH WITH 15MLS [1 CAPFUL] FOR 30 SECONDS THEN SPIT IN THE MORNING AND EVENING AFTER TOOTHBRUSHING, DO NOT SWALLOW SOLD: 03/31/2020 [facility] 800 mg 03/30/2020 12:00:00 AM EST tablet 20 TAKE ONE TABLET BY MOUTH EVERY 8 HOURS TAKE ONE TABLET BY MOUTH EVERY 8 HOURS SOLD: 03/31/2020 [facility] 500 mg 03/30/2020 12:00:00 AM EST capsule 21 TAKE ONE CAPSULE BY MOUTH EVERY 8 HOURS UNTIL GONE TAKE ONE CAPSULE BY MOUTH EVERY 8 HOURS UNTIL GONE TOM[facility]S [facility] 5 mg 03/20/2020 12:00:00 AM EDT tablet 90 TAKE ONE TABLET BY MOUTH EVERY DAY TAKE ONE TABLET BY MOUTH EVERY DAY SOLD: 06/18/2020 [facility] 5 mg 03/20/2020 12:00:00 AM EDT tablet 90 TAKE ONE TABLET BY MOUTH EVERY DAY TAKE ONE TABLET BY MOUTH EVERY DAY SOLD: 03/22/2020 [facility] 5 mg 03/03/2020 12:00:00 AM EDT tablet 90 TAKE 1 TABLET BY MOUTH ONCE A DAY TAKE 1 TABLET BY MOUTH ONCE A DAY SOLD: 03/03/2020 [facility] 50 mg 03/03/2020 12:00:00 AM EDT tablet extended release 24 hr 90 TAKE ONE TABLET BY MOUTH EVERY DAY TAKE ONE TABLET BY MOUTH EVERY DAY SOLD: 03/03/2020 [facility] 50 mg 03/03/2020 12:00:00 AM EDT tablet extended release 24 hr 90 TAKE ONE TABLET BY MOUTH EVERY DAY TAKE ONE TABLET BY MOUTH EVERY DAY SOLD: 05/30/2020 [facility] 3.5-10,000-1 mg/mL-unit/mL-% 03/03/2020 12:00:00 AM EDT drop s,suspension 10 INSTILL 4 DROPS INTO THE RIGHT EAR FOUR TIMES A DAY FOR 10 DAYS INSTILL 4 DROPS INTO THE RIGHT EAR FOUR TIMES A DAY FOR 10 DAYS SOLD: 03/03/2020 [facility] 150 mg 03/03/2020 12:00:00 AM EDT tablet 90 TAKE 1 TABLET BY MOUTH ONCE A DAY TAKE 1 TABLET BY MOUTH ONCE A DAY SOLD: 03/03/2020 [facility] 150 mg 03/03/2020 12:00:00 AM EDT tablet 90 TAKE 1 TABLET BY MOUTH ONCE A DAY TAKE 1 TABLET BY MOUTH ONCE A DAY SOLD: 05/30/2020 [facility] Nitroglycerin 0.4 MG Sublingual Tablet Nitroglycerin 0 12:00:00 AM EDT active MED[facility] ( [facility] 24 HR metoprolol succinate 50 MG Extended Release Oral Tablet Metoprolol Succinate ER 03/02/2020 12:00:00 AM EDT ORAL active MEDENT ([facility] Hydrocortisone 10 MG/ML / Neomycin 3.5 M G/ML / Polymyxin B 47610 UNT/ML Otic Suspension Neomycin/Polymyxin/Hydrocortisone (Otic) 03/02/2020 12:00:00 AM EDT completed MEDENT ([facility] 75 mcg 02/22/2020 12:00:00 AM EDT tablet 30 TAKE 1 TABLET BY MOUTH ONCE A DAY IN THE MORNING ON AN EMPTY STOMACH TAKE 1 TABLET BY MOUTH ONCE A DAY IN THE MORNING ON AN EMPTY STOMACH SOLD: 03/22/2020 [facility] 75 mcg 02/22/2020 12:00:00 AM EDT tablet 30 TAKE 1 TABLET BY MOUTH ONCE A DAY IN THE MORNING ON AN EMPTY STOMACH TAKE 1 TABLET BY MOUTH ONCE A DAY IN THE MORNING ON AN EMPTY STOMACH SOLD: 02/22/2020 [facility] 75 mcg 02/22/2020 12:00:00 AM EDT tablet 30 TAKE 1 TABLET BY MOUTH ONCE A DAY IN THE MORNING ON AN EMPTY STOMACH TAKE 1 TABLET BY MOUTH ONCE A DAY IN THE MORNING ON AN EMPTY STOMACH SOLD: 04/18/2020 [facility] 80 mg 01/28/2020 12:00:00 AM EDT tablet 30 TAKE ONE TABLET BY MOUTH ONCE A DAY TAKE ONE TABLET BY MOUTH ONCE A DAY SOLD: 03/24/2020 [facility] 80 mg 01/28/2020 12:00:00 AM EDT tablet 30 TAKE ONE TABLET BY MOUTH ONCE A DAY TAKE ONE TABLET BY MOUTH ONCE A DAY SOLD: 05/24/2020 [facility] 80 mg 01/28/2020 12:00:00 AM EDT tablet 30 TAKE ONE TABLET BY MOUTH ONCE A DAY TAKE ONE TABLET BY MOUTH ONCE A DAY SOLD: 02/25/2020 [facility] 80 mg 01/28/2020 12:00:00 AM EDT tablet 30 TAKE ONE TABLET BY MOUTH ONCE A DAY TAKE ONE TABLET BY MOUTH ONCE A DAY SOLD: 06/21/2020 [facility] 80 mg 01/28/2020 12:00:00 AM EDT tablet 30 TAKE ONE TABLET BY MOUTH ONCE A DAY TAKE ONE TABLET BY MOUTH ONCE A DAY SOLD: 04/21/2020 [facility] 40 mg 01/27/2020 12:00:00 AM EDT capsule,delayed release (DR/EC) 30 TAKE ONE CAPSULE BY MOUTH EVERY DAY TAKE ONE CAPSULE BY MOUTH EVERY DAY SOLD: 03/24/2020 [facility] 40 mg 01/27/2020 12:00:00 AM EDT capsule,delayed release (DR/EC) 30 TAKE ONE CAPSULE BY MOUTH EVERY DAY TAKE ONE CAPSULE BY MOUTH EVERY DAY SOLD: 04/21/2020 [facility] 40 mg 01/27/2020 12:00:00 AM EDT capsule,delayed release (DR/EC) 30 TAKE ONE CAPSULE BY MOUTH EVERY DAY TAKE ONE CAPSULE BY MOUTH EVERY DAY SOLD: 02/25/2020 [facility] 20 mg 11/22/2019 12:00:00 AM EDT capsule,delayed release (DR/EC) 90 TAKE 1 CAPSULE BY MOUTH ONCE A DAY TAKE 1 CAPSULE BY MOUTH ONCE A DAY SOLD: 09/29/2020 [facility] 300 mg 11/02/2019 12:00:00 AM EDT capsule 270 TAKE ONE CAPSULE BY MOUTH THREE TIMES A DAY TAKE ONE CAPSULE BY MOUTH THREE TIMES A DAY SOLD: 01/30/2020 [facility] 2.5 mcg/actuation 07/02/2019 12:00:00 AM EST mist 12 INHALE TWO PUFFS BY MOUTH EVERY DAY INHALE TWO PUFFS BY MOUTH EVERY DAY SOLD: 03/29/2020 [facility] Insurance Providers Payer name Policy type / Coverage type Policy ID Covered constitution party ID Covered constitution party's relationship to coates Policy Coates Plan Information MEDICARE A [id number] Self [id number] MEDICARE A [id number] Self [id number] A MEDICARE [id number] Ramila [id number] A MEDICARE [id number] SP [id number] Medicare Primary [id number] MEDICAID M [id number] Self [id number] MEDICAID [id number] Ramila [id number] [place] [id number] SP [id number] S MEDICAID [id number] SP [id number] [place] [id number] SP [id number] Medicaid Secondary [id number] ANS-Medicare Part B [id number] ANSI-Medicaid [id number] ANS-Medicare Part B [id number] ANSI-Medicaid [id number] ANSI-Medicare Part B [id number] ANSI-Medicare Part B [id number] ANSI-Medicaid [id number] ANSI-Medicaid [id number] ANSI-Medicare Part B [id number] ANSI-Medicaid [id number] ANSI-Medicare Part B [id number] ANSI-Medicaid [id number] ANSI-Medicare Part B [id number] ANSI-Medicaid [id number] ANSI-Medicare Part B [id number] ANSI-Medicaid [id number] ANSI-Medicare Part B [id number] ANSI-Medicare Part B [id number] ANSI-Medicaid [id number] ANSI-Medicare Part B [id number] ANSI-Medicaid [id number] ANSI-Medicaid [id number] ANSI-Medicare Part B [id number] ANSI-Medicaid [id number] ANSI-Medicare Part B [id number] ANSI-Medicare Part B [id number] [facility]-Medicaid [id number] ANSI-Medicare Part B [id number] [facility]-Medicaid [id number] [facility]-Medicaid [id number] ANSI-Medicare Part B [id number] ANS-Medicaid [id number] ANSI-Medicare Part B [id number] ANSI-Medicaid [id number] ANSI-Medicare Part B [id number] ANSI-Medicare Part B [id number] ANSI-Medicare Part B [id number] ANSI-Medicare Part B [id number] ANSI-Medicare Part B [id number] ANSI-Medicare Part B [id number] ANSI-Medicare Part B [id number] ANSI-Medicare Part B [id number] ANSI-Medicare Part B [id number] MEDICARE [id number] SP [id number] A ANSI-Medicare Part B [id number] MEDICARE C [id number] S [id number] A [place] MEDICARE PART B C [id number] S [id number] [facility] SVC OPTIONS C [id number] S [id number] MEDICARE PI PI Medicare (Part B) Medicare Primary [id number] Self [id number] Medicare (Part A) Medicare Primary [id number] Self [id number] [place] [id number] SP [id number] S MEDICARE [id number] SP [id number] SELF PAY ONLY [id number] SP [id number] [place] [id number] SP [id number] Medicare P [id number] S [id number] D18 Medicaid S UNAVAILABLE S [place] BLE MEDICAID [id number] SP [id number] MEDICARE C [id number] S [id number] D18 MEDICAID M [id number] S [id number] ANSI-Medicaid [id number] Problems, Conditions, and Diagnoses Code Display Name Description Problem Type Effective Dates Data Source(s) C34.92 Malignant neoplasm of unspecified part o f left bronchus or lung Malignant neoplasm of unspecified part of left bronchus or lung Diagnosis 11/26/2020 12:00:00 AM EDT [facility] E05.90 [id number] Hyperthyroidism Problem 03/26/2021 12:00:00 AM EDT eCW1 ([facility]) C34.90 [id number] Small cell lung cancer Problem 01/25/2021 12 :00:00 AM EDT eCW1 ([facility]) [id number] Blind left eye Blind left eye Problem 02/11/2020 12:00: 00 AM EDT MED[facility] ([facility] 896169626 Gastroesophageal reflux disease Gastroesophageal reflux disease Problem 02/11/2020 12:00:00 AM EDT MED[facility] ([facility] 26953183 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 ) 44850180 Hyperlipidemia Hyperlipidemia Problem 02/11/2020 12:00: 00 AM EDT MED[facility] ([facility] 08840639 Essential hypertension Essential hypertension Problem 02/11/2020 12:00:00 AM EDT [facility] ([facility] ) 32291628 Hypothyroidism Hypothyroidism Problem 02/11/2020 12:00: 00 AM EDT MED[facility] ([facility] Surgeries/Procedures Procedure Description Date Indications Data Source(s) ECHO TTHRC R-T 2D W/WOM-MODE COMPL SPEC&COLR DOP 03/16 12:00:00 AM EDT MED[facility] (Ziggy [facility] MD) ECG ROUTINE ECG W/LEAST 12 LDS W/I&R 02/08/2021 12:00: 00 AM EDT [facility] ([facility] MD) OFFICE OUTPATIENT VISIT 25 MINUTES 02/08/2021 12:00:00 AM EDT [facility] ([facility] MD) OFFICE OUTPATIENT VISIT 25 MINUTES 12/24/2020 12:00:00 AM EDT MEDENT ([facility], ) PHYSICIAN TELEPHONE EVALUATION 5-10 MIN 12/07/2020 12: 00:00 AM EDT MED[facility] ([facility], ) OFFICE OUTPATIENT VISIT 25 MINUTES 12/07/2020 12:00:00 AM EDT [facility] ([facility], ) [facility] CARE/DAY 25 MINUTES 11/28/2020 12:00:00 AM EDT [facility] ([facility], ) [facility] CARE/DAY 25 MINUTES 11/27/2020 12:00:00 AM EDT [facility] ([facility]) Bronchoscopy W/Biopsy 11/26/2020 12:00:00 AM EDT [facility] ([facility]) With Endobronchial Ultrasound Guided 11/26/2020 12:00: 00 AM EDT [facility] ([facility]) [facility]ARE/DAY 25 MINUTES 11/25/2020 12:00:00 AM EDT [facility] ([facility]) OFFICE OUTPATIENT VISIT 15 MINUTES 11/02/2020 12:00:00 AM EDT [facility] ([facility]) Inject/Drain Arthrocentesis Major Joint/Bursa/Ganglion Cyst 10/16/2020 12:00:00 AM EDT [facility] ([facility]) OFFICE OUTPATIENT NEW 45 MINUTES 10/16/2020 12:00:00 A M EDT [facility] ([facility]) Spirometry 09/28/2020 12:00:00 AM EDT M [facility] ([facility]) OFFICE OUTPATIENT VISIT 25 MINUTES 09/28/2020 12:00:00 AM EDT [facility] ([facility]) MYOCARDIAL SPECT MULTIPLE STUDIES 08/07/2020 12:00:00 AM EST [facility] ([facility]) CV STRS TST XERS&/OR RX CONT ECG PHYS SI&R 03/11/2020 12:00:00 AM EDT [facility] ([facility]iggy [facility] MD) ECHO TTHRC R-T 2D W/WOM-MODE COMPL SPEC&COLR DOP 03/11 12:00:00 AM EDT [facility] ([facility]iggy [facility] MD) Electrocardiogram Complete 02/11/2020 12:00:00 AM EDT [facility] ([facility] Results ID Date Data Source [id number] 02/25/2021 01:38:50 PM EDT [facility] Name Value Range Interpretation Code Description Data Babita rce(s) Supporting Document(s) *Initial Consult Visit RENU v1 [facility] RCRVOf9oSePGCuQzm1ajMZfbMQKun2QbXWq4MU5CK6LeB3NuMFMrXGPJAIesO5H7mBE5FA88NM06yiNx PdX [file] budWLuNcvXyDDkNQvXxRCCuNcsXyPDkNcsXBdDCOJe o5mUEXUsn9BoBVSKn19yKHBBcs1HxJPGCE0s9ljj8ZWquGQUEQlFpsRhAJVhbAQt7PjsZp6277AZtcFd l9CsVEtaS8US3W3wD/Lrm26vps9l4LP1bjxZ51/EWtSj6q87jsUbBv0yG7yD2jkqsL0EHlTe/DRyTxXv QjwPgqTG0fnG2NhttsSsApyvCzqhb88lJ4dqoA46NQ WucMnWtdqWdZtPHWR1qAMjg3pGy7/UpRhIZa6JhnonbJwD36sKcYMA2d3ZIN+Vr8xn6RMZEQpOTAVM6g UkGWu9gEQ0RQzgiDneJO3UjNzRFHgjNxZnI7k3iR0MKsEJVPsbpRJIScNKnoHryQXJJVcxH1TOeIInJT QjsAOg4DyrSyI5I1MJpsAreDQYNGzmI8QElXAw1C96 yi4GxY1le/eo5MEOTT2qq1/OvWabl+bokNcsvR+dr537Nef97+oZ8sh3GMv/pz6mj8cp2OPXZB9mg6/O uhufKtIYF0H3TbziH42X11EqMFrnyRJurDUgqTbTlPETAx8175EJJ95Ro0hoNOM/cfu/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/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/4 Dz/5+a9++ptf/PX/+E//+Z9+9/UuQodgaA0eJw HrcWrP//uly0xnYx///WuI4h361/O/+b/fIvz3H/71h3/x4S9u//nLD39++89f/Ojrr3/9s85WmpFK+p LJniyP1URlOo436i7W+/P2H33/42w8/v/33n/50Povx+y8SS0FpexUokuB/++CPS0727OaEv5hi8Q Gr2x9/lyraN87G+83Heu0s51LLW9N71cCA+FDiQ7rW xAJacpaaJ8oZ1Irx/nj7qv/+VobfPi/Hxwp88+EnH37++aR++be///FPf/0pqb/5j//j6F45rZvBBr2a 9OoyEyttre7kzq4QBm/r1gnoazyA8x+/+vDXtz/56FbiYyr8jYb2Svpo/VOf+6Lbq5RtaYAwQ/urDz++ 9aAzI9QpVKghN1WYQ4bq+ajrb9+jpZu5Ly/dSXxco9 fEjurA0jw7Zqq2lzO//iYZF6SbasMaIhGOCVme+1sMG93m0Cvtesh6U6opZd9f71t/30yGBLussR84w5 u/TDGyI3GUa5DJP/ek7x7hLfea+5KZnyTjH7uwkk+//JGOFx29766j3j9o4tm/nE/d0f2YiAfXyjYaxB jE0BpQg7k9UnVQT81+tAR/8/RNH117iH36g/jvbl9u qo7Mg00334+1niCxlvg8vc/1Y3iof6PBj0+A+/q8EMmh8xGV/+F7xYr7JKe/AtFJPpdP79HKnatl46e1 PDF+norbert+8THz8+fy/N3zI+k5axJ0aK2+/Y3gN9aF/5+/eeCPLcyvbyr9+Pbnf/b4Xx/Yr6rx2inBM524 [file] Terry+XB6F4YjS68hhIyJownYudlKj3o0hN/0l+pcsBRjUfA5rNbJRePFmSRF4DGTUFzPDUlZ6Tin1kLxD +LOldtiNP/B/kbfMPRDaIgZHS6pjBfrG5YUAruybGo RiuARwkiJSZMUpInKOPZDgCrSDWhCAVpTAGgJjK7LzPmVp7SZVAtCKIaWSBxKpIhLVYfKYHsNGyoDKZr HWEzMzZrGBWyINHpKD5FVmOdERTiGhK9ZFVzGUPlLIQgug2IYQZzMDKgIBKaKsUaVBSxUSMcSKiyFTNh XDZqLIMbWSDgIPFhOB5ABtQkTZLrYAI2NCVxLIRfBW Yknf4AUNNuZLOxXxS9AcEkUQXgBBOeZTsvNEKhKTH3AYBdDFHhOESrRQ5SFvTjVAHoXVSlBdayCYYtID Whbp0BZPPsVWWbKIsjGMJkIEDaFUGeBExvTDExIOOtEUPfNKMrGUKfMB6MTmLzRTDyBCP5KlPzDKWuMQ Dita9SVDGcJAUbRdWnPSKfSWOjXQWzOYziGWCrACYr KyDxDSIsDYJwNE2FWkXrHISgMxU0GgbcPUJnHEZkos9XXGOqDCVvWQGtIjTwBGBtLLRpXGcrFGUtZXbj KIoaYHYgSBKoOD6NYuIcYTNjEpI7NkTuMQAdTPVfgs2DQVEaECFvCusmSkWnIBXuXRZtKSlpXVYtXRE1 XUU3IXGtOCZnUM3JToDkAKNgGezqUlAoEJQoZBQrzf 9BQEWfXCByMSj7UVNoIUCxBOZjGTmnFQHzVBI0XAj6IFQgKQTvNK5HDqZbELXgTYO5CFTxYHGdIVXcxz 2OMXCeUNXuFImxIgZuXQHwDXMtIPcnXWKjDVL3LHAyDZHhCYPsID6ADjPxFECtJDioYGAmLMWtYVYzwj 1GWBCoCWK9ZAV6PYFmJIOnOLRlFSncXXVfBUS6UYE4 HJYgWIKuKF9SXzFsEXJpXoHqFUDyWYMxPUZera1YCLJsSAQ4PBGhPUKvUVHvGMLaRNnnWAGlVJwbALgh GEAlSFKaMK8XLiGsMPZcYuC5FQLxSGQgDHVnka4QLZRaHWQ9RCq8ZGUoECHqUYWcDPlbJAGtXSg4KMn5 ANXrVWYaPY5FVcVtCTXuZtY1LXtzXHEoDZHsis6PET YvRFI3NLOzQSBeQUKzJDRfPNhdKCXiVAd7SxW0JAAjESVfNK2OQcUgMUCdBufpMkkjDJBnHTZcnr9WJT SsTCSyDZM9CHAjATChGCQcQKs0mmZpxHRpQEb2DM3ER4mtHd7eHFIaDMXGQSveTf2nxFUtJGQnWj6SJ4 NpemUgNDENCj4+JUvXSwH7XJS2bGNwVl9UXGBuIgWuODfsUPMZFo6U ID Date Data Source [id number] 01/13/2021 02:42:16 PM EDT [facility] Name Value Range Interpretation Code Description Data Babita rce(s) Supporting Document(s) *No Show Note RENU v1 [facility] HBSUEf8dRtCQKsXqw6abYPhpRGQeq4FjPNk1RO2NQ7ZxSOlncaAyVSMgecCaE0HwDXRzBWLJQEfcNHqn FQz [file] 8Q2+mitchell/xdFOK+n/9apxTpoKo9xoI6dzewggznrz+pL0482Y12Y7Rk6bQ+fy341Q8G20xsM6LK52c7F5 /EOoW/f0h+jlVyseI264tZ6wq3XCmblbbCaIuIzr00uXpQ+3mGa+6573WzLOX34kpLz9m+toA/j1Doav kd/btyPce/wx0OpeaQ/X46N+ScrTZud1kEWLelHl5i +Igl9vjizUqYivaqURIyw7dVECfAd09xRWgJcJdkVjA/PnpTzRZv4IpYAio2RZdVTmLoDBCz485VFqSt 3qk41p0ji6WaAXprNm881bsu7Y14Ib1XA73KE0N/OIpLPYM/ao31xx97+dp58ddnJMrnSk2FajWsKeQl hh2kidH/QrX9afxq5TyT75sD28JVhsW3+Nd0zaNrgE cmQzd1xHZ24/dDiUpQkVrfE+/tR/levd02KFi4g4il72XaClqTWwbvJ/vhZJoLh6WagRcTnKWL/ozD9Q 7uET8D/8I4T7zQat/F+9D4aBrxT7oJzmMeQSqbgjTpTYLJwxgaY+YAWzal1nzP9Go2ep4R6n7t/jbGbg /zSqL4aSe0T9Sro7M3cJMIU/231On12e4SkAa0hDzA wlpxOew+QmqFd035Tg1hkqwz7glamx+YRMFBNssv7Ez8m62X+6cV+RwCeck49G+0Unsacdny+muKgn7w Wa1pJqS9kJwxC+K03Vh/c/hNWo/znWJ+kql8W3GZ25Knom7LnSsCja23UubP3bQ7C/Vy2Ldw/n+0Uu1G xctV97u0Jn85C9ZiqCD+0za0Jm8kkHO8iqL2PxVS9Y 7JRBvUf6LX1IKfxJv2+m8hePQexi5EUg13+HAXUv9jqfj2nOri1c6s2obE/tsJuKZXEo+MeSTxSdpDiY /dU/woLdZ3mq9/FHSwPEzyfbO9Y2KNxWvrGQ7ud3T2y/j5Qvm6/Tpbdyqm1BRJ2GZDO/Mikael+W6xteJry pU8XUOzeX0VQKcMcpxvbYLmAJ/IsrencS7+ovkoJxc 3IfHYw+Zt/MC+eeIJm6+QMEvkkx+4wtI9ftODQ71elOff3a43Y7CANPf8Y8vCfloRT7t9ZTktRHNKEEI ZQ8QBV/JxmPTSLRpp947GmM9hOzkdhjvLXviGOtuTFfsFYxdMEyhCHajSQpmVBekKQhbSPpaOHwgWLwu [facility]+MQqRd5 [file] 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 Name Value Range Interpretation Code Description Data Babita rce(s) Supporting Document(s) Progress Note [facility] CPENUq1nOvNEKdDj11/IMDmqZLXrp1EvBTvcEDj2HWjnHFLhE5RrQMX6oD1lZBC9AJqGBcWuXiVcTIU9 lbm [file] jwODfKBnAZXpVC+long term+F8Sz3s59LvpuQ3LzMEMzirB [file] ID Date Data Source [id number] 12/27/2020 08:58:00 AM EDT [facility] Name Value Range Interpretation Code Description Data Babita rce(s) Supporting Document(s) SARS-CoV-2 (COVID 19) NEGATIVE - SARS-CoV-2 (COVID19) [facility] This lab was ordered by [facility] a nd reported by [facility]. ID Date Data Source [id number] 12/14/2020 08:58:00 AM EDT [facility] Name Value Range Interpretation Code Description Data Babita rce(s) Supporting Document(s) SARS-CoV-2 (COVID 19) NEGATIVE - SARS-CoV-2 (COVID19) [facility] This lab was ordered by [facility] a nd reported by [facility]. ID Date Data Source [id number] 11/24/2020 04:29:00 PM EDT [facility] Name Value Range Interpretation Code Description Data Babita rce(s) Supporting Document(s) SARS-CoV-2 (COVID 19) NEGATIVE - SARS-CoV-2 (COVID19) [facility] This lab was ordered by [facility] a nd reported by [facility]. ID Date Data Source [id number] 09/21/2020 02:21:00 PM EDT [facility] Name Value Range Interpretation Code Description Data Babita rce(s) Supporting Document(s) SARS-CoV-2 (COVID 19) NEGATIVE - SARS-CoV-2 (COVID19) [facility] This lab was ordered by [facility] a nd reported by [facility]. ID Date Data Source [id number] 08/11/2020 03:05:00 PM EDT [facility] ([facility] Name Value Range Interpretation Code Description Data Babita rce(s) Supporting Document(s) Creatine kinase [Enzymatic activity/volume] in Serum or Plasma 81 U /L 26-192 [facility] ([facility] NORMAL RANGES Age WBC RBC HGB HCT MCV PLT Adult M 4.1-10.9 4.20-6.30 12.0-18.0 37.0-51.0 80-97 140-440 Adult F 4.1-10.9 4.04-5.48 12.0-18.0 37.0-51.0 80-97 140-440 0 -1 Yr 5.0-20.0 3.9-5.9 15-18 MV: 44 MV: 91 MV: 277 2-9 Yr. 6.0-17.0 3.8-5.4 11-13 MV: 37 MV: 78 MV: 300 10 Yrs. 5.0-13.0 3.8-5.4 12-15 MV: 39 MV: 80 MV: 250 NOTE: * FOR ADULT BLACK MALES AND FEMALES, NORMAL WBC IS 2.9-7.7 K/ML * FOR ADULT BLACK MALES AND FEMALES, NORMAL RBC,HGB, AND HCT IS 5% LESS SOURCE FOR DATA: Hamilton Thorne 1800 OPERATION MANUAL( AUTOMATED BLOOD COUNTS AND DIFF.) APPENDIX B-3 CHRONIC KIDNEY DISEASE STAGING PER NKF: MALE GFR INTERPRETATION: 20-49 YRS: >60 mL/min Normal 50-59 YRS: >56 mL/min Normal 60-69 YRS: >49 mL/min Normal 70-79 YRS: >42 mL/min Normal 80 and above >35 mL/min Normal FEMALE GRF INTERPRETATION: 20-39 YRS: >60 mL/min Normal 40-49 YRS: >58 mL/min Normal 50-59 YRS: >51 mL/min Normal 60-69 YRS: >45 mL/min Normal 70-79 YRS: >39 mL/min Normal 80 and above >32 mL/min NormalCLASSIFICATION CHOLESTEROL FOR ADULTS CHILDREN/ADOLESCENTS* DESIRABLE: <200 MG/DL <170 MG/DL BORDER-LINE HIGH RISK: 200-239 MG/DL 170-199 MG/DL HIGH RISK: >240 MG/DL >200 MG/DL CLASS. FOR PRIMARY LDL CHOL PREVENTION: LDL CHOL-CHILD/ADOLESCENTS* DESIRABLE: <130 MG/DL <110 MG/DL BORDERLINE-HIGH RISK: 130-159 MG/DL 110-129 MG/DL HIGH RISK: >160 MG/DL >130 MG/DL *CHILDREN AND ADOLESCENTS REPRESENTS INDIVIDUALA AGED 2-19 YEARS EXCLUSIVE. ID Date Data Source [id number] 08/11/2020 03:05:00 PM EDT [facility] ([facility] Name Value Range Interpretation Code Description Data Babita rce(s) Supporting Document(s) Chol 155 mg/dL 0-200 [facility] ([facility] NORMAL RANGES Age WBC RBC HGB HCT MCV PLT Adult M 4.1-10.9 4.20-6.30 12.0-18.0 37.0-51.0 80-97 140-440 Adult F 4.1-10.9 4.04-5.48 12.0-18.0 37.0-51.0 80-97 140-440 0 -1 Yr 5.0-20.0 3.9-5.9 15-18 MV: 44 MV: 91 MV: 277 2-9 Yr. 6.0-17.0 3.8-5.4 11-13 MV: 37 MV: 78 MV: 300 10 Yrs. 5.0-13.0 3.8-5.4 12-15 MV: 39 MV: 80 MV: 250 NOTE: * FOR ADULT BLACK MALES AND FEMALES, NORMAL WBC IS 2.9-7.7 K/ML * FOR ADULT BLACK MALES AND FEMALES, NORMAL RBC,HGB, AND HCT IS 5% LESS SOURCE FOR DATA: [employer] DYN 1800 OPERATION MANUAL( AUTOMATED BLOOD COUNTS AND DIFF.) APPENDIX B-3 CHRONIC KIDNEY DISEASE STAGING PER NKF: MALE GFR INTERPRETATION: 20-49 YRS: >60 mL/min Normal 50-59 YRS: >56 mL/min Normal 60-69 YRS: >49 mL/min Normal 70-79 YRS: >42 mL/min Normal 80 and above >35 mL/min Normal FEMALE GRF INTERPRETATION: 20-39 YRS: >60 mL/min Normal 40-49 YRS: >58 mL/min Normal 50-59 YRS: >51 mL/min Normal 60-69 YRS: >45 mL/min Normal 70-79 YRS: >39 mL/min Normal 80 and above >32 mL/min NormalCLASSIFICATION CHOLESTEROL FOR ADULTS CHILDREN/ADOLESCENTS* DESIRABLE: <200 MG/DL <170 MG/DL BORDER-LINE HIGH RISK: 200-239 MG/DL 170-199 MG/DL HIGH RISK: >240 MG/DL >200 MG/DL CLASS. FOR PRIMARY LDL CHOL PREVENTION: LDL CHOL-CHILD/ADOLESCENTS* DESIRABLE: <130 MG/DL <110 MG/DL BORDERLINE-HIGH RISK: 130-159 MG/DL 110-129 MG/DL HIGH RISK: >160 MG/DL >130 MG/DL *CHILDREN AND ADOLESCENTS REPRESENTS INDIVIDUALA AGED 2-19 YEARS EXCLUSIVE. Trig 198 mg/dL 40-200 [facility] ([facility] NORMAL RANGES Age WBC RBC HGB HCT MCV PLT Adult M 4.1-10.9 4.20-6.30 12.0-18.0 37.0-51.0 80-97 140-440 Adult F 4.1-10.9 4.04-5.48 12.0-18.0 37.0-51.0 80-97 140-440 0 -1 Yr 5.0-20.0 3.9-5.9 15-18 MV: 44 MV: 91 MV: 277 2-9 Yr. 6.0-17.0 3.8-5.4 11-13 MV: 37 MV: 78 MV: 300 10 Yrs. 5.0-13.0 3.8-5.4 12-15 MV: 39 MV: 80 MV: 250 NOTE: * FOR ADULT BLACK MALES AND FEMALES, NORMAL WBC IS 2.9-7.7 K/ML * FOR ADULT BLACK MALES AND FEMALES, NORMAL RBC,HGB, AND HCT IS 5% LESS SOURCE FOR DATA: Hamilton Thorne 1800 OPERATION MANUAL( AUTOMATED BLOOD COUNTS AND DIFF.) APPENDIX B-3 CHRONIC KIDNEY DISEASE STAGING PER NKF: MALE GFR INTERPRETATION: 20-49 YRS: >60 mL/min Normal 50-59 YRS: >56 mL/min Normal 60-69 YRS: >49 mL/min Normal 70-79 YRS: >42 mL/min Normal 80 and above >35 mL/min Normal FEMALE GRF INTERPRETATION: 20-39 YRS: >60 mL/min Normal 40-49 YRS: >58 mL/min Normal 50-59 YRS: >51 mL/min Normal 60-69 YRS: >45 mL/min Normal 70-79 YRS: >39 mL/min Normal 80 and above >32 mL/min NormalCLASSIFICATION CHOLESTEROL FOR ADULTS CHILDREN/ADOLESCENTS* DESIRABLE: <200 MG/DL <170 MG/DL BORDER-LINE HIGH RISK: 200-239 MG/DL 170-199 MG/DL HIGH RISK: >240 MG/DL >200 MG/DL CLASS. FOR PRIMARY LDL CHOL PREVENTION: LDL CHOL-CHILD/ADOLESCENTS* DESIRABLE: <130 MG/DL <110 MG/DL BORDERLINE-HIGH RISK: 130-159 MG/DL 110-129 MG/DL HIGH RISK: >160 MG/DL >130 MG/DL *CHILDREN AND ADOLESCENTS REPRESENTS INDIVIDUALA AGED 2-19 YEARS EXCLUSIVE. LDL_C 55 Calc 75-129 Below low normal [facility] ( [facility] NORMAL RANGES Age WBC RBC HGB HCT MCV PLT Adult M 4.1-10.9 4.20-6.30 12.0-18.0 37.0-51.0 80-97 140-440 Adult F 4.1-10.9 4.04-5.48 12.0-18.0 37.0-51.0 80-97 140-440 0 -1 Yr 5.0-20.0 3.9-5.9 15-18 MV: 44 MV: 91 MV: 277 2-9 Yr. 6.0-17.0 3.8-5.4 11-13 MV: 37 MV: 78 MV: 300 10 Yrs. 5.0-13.0 3.8-5.4 12-15 MV: 39 MV: 80 MV: 250 NOTE: * FOR ADULT BLACK MALES AND FEMALES, NORMAL WBC IS 2.9-7.7 K/ML * FOR ADULT BLACK MALES AND FEMALES, NORMAL RBC,HGB, AND HCT IS 5% LESS SOURCE FOR DATA: BORIS DYN 1800 OPERATION MANUAL( AUTOMATED BLOOD COUNTS AND DIFF.) APPENDIX B-3 CHRONIC KIDNEY DISEASE STAGING PER NKF: MALE GFR INTERPRETATION: 20-49 YRS: >60 mL/min Normal 50-59 YRS: >56 mL/min Normal 60-69 YRS: >49 mL/min Normal 70-79 YRS: >42 mL/min Normal 80 and above >35 mL/min Normal FEMALE GRF INTERPRETATION: 20-39 YRS: >60 mL/min Normal 40-49 YRS: >58 mL/min Normal 50-59 YRS: >51 mL/min Normal 60-69 YRS: >45 mL/min Normal 70-79 YRS: >39 mL/min Normal 80 and above >32 mL/min NormalCLASSIFICATION CHOLESTEROL FOR ADULTS CHILDREN/ADOLESCENTS* DESIRABLE: <200 MG/DL <170 MG/DL BORDER-LINE HIGH RISK: 200-239 MG/DL 170-199 MG/DL HIGH RISK: >240 MG/DL >200 MG/DL CLASS. FOR PRIMARY LDL CHOL PREVENTION: LDL CHOL-CHILD/ADOLESCENTS* DESIRABLE: <130 MG/DL <110 MG/DL BORDERLINE-HIGH RISK: 130-159 MG/DL 110-129 MG/DL HIGH RISK: >160 MG/DL >130 MG/DL *CHILDREN AND ADOLESCENTS REPRESENTS INDIVIDUALA AGED 2-19 YEARS EXCLUSIVE. Cholesterol in HDL [Mass/volume] in Serum or Plasma 60 mg/dL 45-65 [facility] ([facility] NORMAL RANGES Age WBC RBC HGB HCT MCV PLT Adult M 4.1-10.9 4.20-6.30 12.0-18.0 37.0-51.0 80-97 140-440 Adult F 4.1-10.9 4.04-5.48 12.0-18.0 37.0-51.0 80-97 140-440 0 -1 Yr 5.0-20.0 3.9-5.9 15-18 MV: 44 MV: 91 MV: 277 2-9 Yr. 6.0-17.0 3.8-5.4 11-13 MV: 37 MV: 78 MV: 300 10 Yrs. 5.0-13.0 3.8-5.4 12-15 MV: 39 MV: 80 MV: 250 NOTE: * FOR ADULT BLACK MALES AND FEMALES, NORMAL WBC IS 2.9-7.7 K/ML * FOR ADULT BLACK MALES AND FEMALES, NORMAL RBC,HGB, AND HCT IS 5% LESS SOURCE FOR DATA: Hamilton Thorne 1800 OPERATION MANUAL( AUTOMATED BLOOD COUNTS AND DIFF.) APPENDIX B-3 CHRONIC KIDNEY DISEASE STAGING PER NKF: MALE GFR INTERPRETATION: 20-49 YRS: >60 mL/min Normal 50-59 YRS: >56 mL/min Normal 60-69 YRS: >49 mL/min Normal 70-79 YRS: >42 mL/min Normal 80 and above >35 mL/min Normal FEMALE GRF INTERPRETATION: 20-39 YRS: >60 mL/min Normal 40-49 YRS: >58 mL/min Normal 50-59 YRS: >51 mL/min Normal 60-69 YRS: >45 mL/min Normal 70-79 YRS: >39 mL/min Normal 80 and above >32 mL/min NormalCLASSIFICATION CHOLESTEROL FOR ADULTS CHILDREN/ADOLESCENTS* DESIRABLE: <200 MG/DL <170 MG/DL BORDER-LINE HIGH RISK: 200-239 MG/DL 170-199 MG/DL HIGH RISK: >240 MG/DL >200 MG/DL CLASS. FOR PRIMARY LDL CHOL PREVENTION: LDL CHOL-CHILD/ADOLESCENTS* DESIRABLE: <130 MG/DL <110 MG/DL BORDERLINE-HIGH RISK: 130- 159 MG/DL 110-129 MG/DL HIGH RISK: >160 MG/DL >130 MG/DL *CHILDREN AND ADOLESCENTS REPRESENTS INDIVIDUALA AGED 2-19 YEARS EXCLUSIVE. Cho/HDL Ratio 2.6 [facility]C [facility] NORMAL RANGES Age WBC RBC HGB HCT MCV PLT Adult M 4.1-10.9 4.20-6.30 12.0-18.0 37.0-51.0 80-97 140-440 Adult F 4.1-10.9 4.04-5.48 12.0-18.0 37.0-51.0 80-97 140-440 0 -1 Yr 5.0-20.0 3.9-5.9 15-18 MV: 44 MV: 91 MV: 277 2-9 Yr. 6.0-17.0 3.8-5.4 11-13 MV: 37 MV: 78 MV: 300 10 Yrs. 5.0-13.0 3.8-5.4 12-15 MV: 39 MV: 80 MV: 250 NOTE: * FOR ADULT BLACK MALES AND FEMALES, NORMAL WBC IS 2.9-7.7 K/ML * FOR ADULT BLACK MALES AND FEMALES, NORMAL RBC,HGB, AND HCT IS 5% LESS SOURCE FOR DATA: Hamilton Thorne 1800 OPERATION MANUAL( AUTOMATED BLOOD COUNTS AND DIFF.) APPENDIX B-3 CHRONIC KIDNEY DISEASE STAGING PER NKF: MALE GFR INTERPRETATION: 20-49 YRS: >60 mL/min Normal 50-59 YRS: >56 mL/min Normal 60-69 YRS: >49 mL/min Normal 70-79 YRS: >42 mL/min Normal 80 and above >35 mL/min Normal FEMALE GRF INTERPRETATION: 20-39 YRS: >60 mL/min Normal 40-49 YRS: >58 mL/min Normal 50-59 YRS: >51 mL/min Normal 60-69 YRS: >45 mL/min Normal 70-79 YRS: >39 mL/min Normal 80 and above >32 mL/min NormalCLASSIFICATION CHOLESTEROL FOR ADULTS CHILDREN/ADOLESCENTS* DESIRABLE: <200 MG/DL <170 MG/DL BORDER-LINE HIGH RISK: 200-239 MG/DL 170-199 MG/DL HIGH RISK: >240 MG/DL >200 MG/DL CLASS. FOR PRIMARY LDL CHOL PREVENTION: LDL CHOL-CHILD/ADOLESCENTS* DESIRABLE: <130 MG/DL <110 MG/DL BORDERLINE-HIGH RISK: 130- 159 MG/DL 110-129 MG/DL HIGH RISK: >160 MG/DL >130 MG/DL *CHILDREN AND ADOLESCENTS REPRESENTS INDIVIDUALA AGED 2-19 YEARS EXCLUSIVE. ID Date Data Source [id number] 08/11/2020 03:05:00 PM EDT [facility] ([facility] Name Value Range Interpretation Code Description Data Babita rce(s) Supporting Document(s) Glu 101 mg/dL 70-110 [facility] ([facility] NORMAL RANGES Age WBC RBC HGB HCT MCV PLT Adult M 4.1-10.9 4.20-6.30 12.0-18.0 37.0-51.0 80-97 140-440 Adult F 4.1-10.9 4.04-5.48 12.0-18.0 37.0-51.0 80-97 140-440 0 -1 Yr 5.0-20.0 3.9-5.9 15-18 MV: 44 MV: 91 MV: 277 2-9 Yr. 6.0-17.0 3.8-5.4 11-13 MV: 37 MV: 78 MV: 300 10 Yrs. 5.0-13.0 3.8-5.4 12-15 MV: 39 MV: 80 MV: 250 NOTE: * FOR ADULT BLACK MALES AND FEMALES, NORMAL WBC IS 2.9-7.7 K/ML * FOR ADULT BLACK MALES AND FEMALES, NORMAL RBC,HGB, AND HCT IS 5% LESS SOURCE FOR DATA: [employer] DYN 1800 OPERATION MANUAL( AUTOMATED BLOOD COUNTS AND DIFF.) APPENDIX B-3 CHRONIC KIDNEY DISEASE STAGING PER NKF: MALE GFR INTERPRETATION: 20-49 YRS: >60 mL/min Normal 50-59 YRS: >56 mL/min Normal 60-69 YRS: >49 mL/min Normal 70-79 YRS: >42 mL/min Normal 80 and above >35 mL/min Normal FEMALE GRF INTERPRETATION: 20-39 YRS: >60 mL/min Normal 40-49 YRS: >58 mL/min Normal 50-59 YRS: >51 mL/min Normal 60-69 YRS: >45 mL/min Normal 70-79 YRS: >39 mL/min Normal 80 and above >32 mL/min NormalCLASSIFICATION CHOLESTEROL FOR ADULTS CHILDREN/ADOLESCENTS* DESIRABLE: <200 MG/DL <170 MG/DL BORDER-LINE HIGH RISK: 200-239 MG/DL 170-199 MG/DL HIGH RISK: >240 MG/DL >200 MG/DL CLASS. FOR PRIMARY LDL CHOL PREVENTION: LDL CHOL-CHILD/ADOLESCENTS* DESIRABLE: <130 MG/DL <110 MG/DL BORDERLINE-HIGH RISK: 130- 159 MG/DL 110-129 MG/DL HIGH RISK: >160 MG/DL >130 MG/DL *CHILDREN AND ADOLESCENTS REPRESENTS INDIVIDUALA AGED 2-19 YEARS EXCLUSIVE. Creat 1.0 mg/dL 0.5-1.0 [facility] ([facility] NORMAL RANGES Age WBC RBC HGB HCT MCV PLT Adult M 4.1-10.9 4.20-6.30 12.0-18.0 37.0-51.0 80-97 140-440 Adult F 4.1-10.9 4.04-5.48 12.0-18.0 37.0-51.0 80-97 140-440 0 -1 Yr 5.0-20.0 3.9-5.9 15-18 MV: 44 MV: 91 MV: 277 2-9 Yr. 6.0-17.0 3.8-5.4 11-13 MV: 37 MV: 78 MV: 300 10 Yrs. 5.0-13.0 3.8-5.4 12-15 MV: 39 MV: 80 MV: 250 NOTE: * FOR ADULT BLACK MALES AND FEMALES, NORMAL WBC IS 2.9-7.7 K/ML * FOR ADULT BLACK MALES AND FEMALES, NORMAL RBC,HGB, AND HCT IS 5% LESS SOURCE FOR DATA: Hamilton Thorne 1800 OPERATION MANUAL( AUTOMATED BLOOD COUNTS AND DIFF.) APPENDIX B-3 CHRONIC KIDNEY DISEASE STAGING PER NKF: MALE GFR INTERPRETATION: 20-49 YRS: >60 mL/min Normal 50-59 YRS: >56 mL/min Normal 60-69 YRS: >49 mL/min Normal 70-79 YRS: >42 mL/min Normal 80 and above >35 mL/min Normal FEMALE GRF INTERPRETATION: 20-39 YRS: >60 mL/min Normal 40-49 YRS: >58 mL/min Normal 50-59 YRS: >51 mL/min Normal 60-69 YRS: >45 mL/min Normal 70-79 YRS: >39 mL/min Normal 80 and above >32 mL/min NormalCLASSIFICATION CHOLESTEROL FOR ADULTS CHILDREN/ADOLESCENTS* DESIRABLE: <200 MG/DL <170 MG/DL BORDER-LINE HIGH RISK: 200-239 MG/DL 170-199 MG/DL HIGH RISK: >240 MG/DL >200 MG/DL CLASS. FOR PRIMARY LDL CHOL PREVENTION: LDL CHOL-CHILD/ADOLESCENTS* DESIRABLE: <130 MG/DL <110 MG/DL BORDERLINE-HIGH RISK: 130- 159 MG/DL 110-129 MG/DL HIGH RISK: >160 MG/DL >130 MG/DL *CHILDREN AND ADOLESCENTS REPRESENTS INDIVIDUALA AGED 2-19 YEARS EXCLUSIVE. BUN 14 mg/dL 8-23 [facility] NORMAL RANGES Age WBC RBC HGB HCT MCV PLT Adult M 4.1-10.9 4.20-6.30 12.0-18.0 37.0-51.0 80-97 140-440 Adult F 4.1-10.9 4.04-5.48 12.0-18.0 37.0-51.0 80-97 140-440 0 -1 Yr 5.0-20.0 3.9-5.9 15-18 MV: 44 MV: 91 MV: 277 2-9 Yr. 6.0-17.0 3.8-5.4 11-13 MV: 37 MV: 78 MV: 300 10 Yrs. 5.0-13.0 3.8-5.4 12-15 MV: 39 MV: 80 MV: 250 NOTE: * FOR ADULT BLACK MALES AND FEMALES, NORMAL WBC IS 2.9-7.7 K/ML * FOR ADULT BLACK MALES AND FEMALES, NORMAL RBC,HGB, AND HCT IS 5% LESS SOURCE FOR DATA: [employer] DYN 1800 OPERATION MANUAL( AUTOMATED BLOOD COUNTS AND DIFF.) APPENDIX B-3 CHRONIC KIDNEY DISEASE STAGING PER NKF: MALE GFR INTERPRETATION: 20-49 YRS: >60 mL/min Normal 50-59 YRS: >56 mL/min Normal 60-69 YRS: >49 mL/min Normal 70-79 YRS: >42 mL/min Normal 80 and above >35 mL/min Normal FEMALE GRF INTERPRETATION: 20-39 YRS: >60 mL/min Normal 40-49 YRS: >58 mL/min Normal 50-59 YRS: >51 mL/min Normal 60-69 YRS: >45 mL/min Normal 70-79 YRS: >39 mL/min Normal 80 and above >32 mL/min NormalCLASSIFICATION CHOLESTEROL FOR ADULTS CHILDREN/ADOLESCENTS* DESIRABLE: <200 MG/DL <170 MG/DL BORDER-LINE HIGH RISK: 200-239 MG/DL 170-199 MG/DL HIGH RISK: >240 MG/DL >200 MG/DL CLASS. FOR PRIMARY LDL CHOL PREVENTION: LDL CHOL-CHILD/ADOLESCENTS* DESIRABLE: <130 MG/DL <110 MG/DL BORDERLINE-HIGH RISK: 130- 159 MG/DL 110-129 MG/DL HIGH RISK: >160 MG/DL >130 MG/DL *CHILDREN AND ADOLESCENTS REPRESENTS INDIVIDUALA AGED 2-19 YEARS EXCLUSIVE. BUN/Creatinine Ratio 13.9 CALC [facility] ([facility] NORMAL RANGES Age WBC RBC HGB HCT MCV PLT Adult M 4.1-10.9 4.20-6.30 12.0-18.0 37.0-51.0 80-97 140-440 Adult F 4.1-10.9 4.04-5.48 12.0-18.0 37.0-51.0 80-97 140-440 0 -1 Yr 5.0-20.0 3.9-5.9 15-18 MV: 44 MV: 91 MV: 277 2-9 Yr. 6.0-17.0 3.8-5.4 11-13 MV: 37 MV: 78 MV: 300 10 Yrs. 5.0-13.0 3.8-5.4 12-15 MV: 39 MV: 80 MV: 250 NOTE: * FOR ADULT BLACK MALES AND FEMALES, NORMAL WBC IS 2.9-7.7 K/ML * FOR ADULT BLACK MALES AND FEMALES, NORMAL RBC,HGB, AND HCT IS 5% LESS SOURCE FOR DATA: [employer] 1800 OPERATION MANUAL( AUTOMATED BLOOD COUNTS AND DIFF.) APPENDIX B-3 CHRONIC KIDNEY DISEASE STAGING PER NKF: MALE GFR INTERPRETATION: 20-49 YRS: >60 mL/min Normal 50-59 YRS: >56 mL/min Normal 60-69 YRS: >49 mL/min Normal 70-79 YRS: >42 mL/min Normal 80 and above >35 mL/min Normal FEMALE GRF INTERPRETATION: 20-39 YRS: >60 mL/min Normal 40-49 YRS: >58 mL/min Normal 50-59 YRS: >51 mL/min Normal 60-69 YRS: >45 mL/min Normal 70-79 YRS: >39 mL/min Normal 80 and above >32 mL/min NormalCLASSIFICATION CHOLESTEROL FOR ADULTS CHILDREN/ADOLESCENTS* DESIRABLE: <200 MG/DL <170 MG/DL BORDER-LINE HIGH RISK: 200-239 MG/DL 170-199 MG/DL HIGH RISK: >240 MG/DL >200 MG/DL CLASS. FOR PRIMARY LDL CHOL PREVENTION: LDL CHOL-CHILD/ADOLESCENTS* DESIRABLE: <130 MG/DL <110 MG/DL BORDERLINE-HIGH RISK: 130- 159 MG/DL 110-129 MG/DL HIGH RISK: >160 MG/DL >130 MG/DL *CHILDREN AND ADOLESCENTS REPRESENTS INDIVIDUALA AGED 2-19 YEARS EXCLUSIVE. K 4.5 mmol/L 3.5-5.1 [facility] ([facility] NORMAL RANGES Age WBC RBC HGB HCT MCV PLT Adult M 4.1-10.9 4.20-6.30 12.0-18.0 37.0-51.0 80-97 140-440 Adult F 4.1-10.9 4.04-5.48 12.0-18.0 37.0-51.0 80-97 140-440 0 -1 Yr 5.0-20.0 3.9-5.9 15-18 MV: 44 MV: 91 MV: 277 2-9 Yr. 6.0-17.0 3.8-5.4 11-13 MV: 37 MV: 78 MV: 300 10 Yrs. 5.0-13.0 3.8-5.4 12-15 MV: 39 MV: 80 MV: 250 NOTE: * FOR ADULT BLACK MALES AND FEMALES, NORMAL WBC IS 2.9-7.7 K/ML * FOR ADULT BLACK MALES AND FEMALES, NORMAL RBC,HGB, AND HCT IS 5% LESS SOURCE FOR DATA: [employer] 1800 OPERATION MANUAL( AUTOMATED BLOOD COUNTS AND DIFF.) APPENDIX B-3 CHRONIC KIDNEY DISEASE STAGING PER NKF: MALE GFR INTERPRETATION: 20-49 YRS: >60 mL/min Normal 50-59 YRS: >56 mL/min Normal 60-69 YRS: >49 mL/min Normal 70-79 YRS: >42 mL/min Normal 80 and above >35 mL/min Normal FEMALE GRF INTERPRETATION: 20-39 YRS: >60 mL/min Normal 40-49 YRS: >58 mL/min Normal 50-59 YRS: >51 mL/min Normal 60-69 YRS: >45 mL/min Normal 70-79 YRS: >39 mL/min Normal 80 and above >32 mL/min NormalCLASSIFICATION CHOLESTEROL FOR ADULTS CHILDREN/ADOLESCENTS* DESIRABLE: <200 MG/DL <170 MG/DL BORDER-LINE HIGH RISK: 200-239 MG/DL 170-199 MG/DL HIGH RISK: >240 MG/DL >200 MG/DL CLASS. FOR PRIMARY LDL CHOL PREVENTION: LDL CHOL-CHILD/ADOLESCENTS* DESIRABLE: <130 MG/DL <110 MG/DL BORDERLINE-HIGH RISK: 130- 159 MG/DL 110-129 MG/DL HIGH RISK: >160 MG/DL >130 MG/DL *CHILDREN AND ADOLESCENTS REPRESENTS INDIVIDUALA AGED 2-19 YEARS EXCLUSIVE. Na 138 mmol/L 136-145 [facility] NORMAL RANGES Age WBC RBC HGB HCT MCV PLT Adult M 4.1-10.9 4.20-6.30 12.0-18.0 37.0-51.0 80-97 140-440 Adult F 4.1-10.9 4.04-5.48 12.0-18.0 37.0-51.0 80-97 140-440 0 -1 Yr 5.0-20.0 3.9-5.9 15-18 MV: 44 MV: 91 MV: 277 2-9 Yr. 6.0-17.0 3.8-5.4 11-13 MV: 37 MV: 78 MV: 300 10 Yrs. 5.0-13.0 3.8-5.4 12-15 MV: 39 MV: 80 MV: 250 NOTE: * FOR ADULT BLACK MALES AND FEMALES, NORMAL WBC IS 2.9-7.7 K/ML * FOR ADULT BLACK MALES AND FEMALES, NORMAL RBC,HGB, AND HCT IS 5% LESS SOURCE FOR DATA: [employer] 1800 OPERATION MANUAL( AUTOMATED BLOOD COUNTS AND DIFF.) APPENDIX B-3 CHRONIC KIDNEY DISEASE STAGING PER NKF: MALE GFR INTERPRETATION: 20-49 YRS: >60 mL/min Normal 50-59 YRS: >56 mL/min Normal 60-69 YRS: >49 mL/min Normal 70-79 YRS: >42 mL/min Normal 80 and above >35 mL/min Normal FEMALE GRF INTERPRETATION: 20-39 YRS: >60 mL/min Normal 40-49 YRS: >58 mL/min Normal 50-59 YRS: >51 mL/min Normal 60-69 YRS: >45 mL/min Normal 70-79 YRS: >39 mL/min Normal 80 and above >32 mL/min NormalCLASSIFICATION CHOLESTEROL FOR ADULTS CHILDREN/ADOLESCENTS* DESIRABLE: <200 MG/DL <170 MG/DL BORDER-LINE HIGH RISK: 200-239 MG/DL 170-199 MG/DL HIGH RISK: >240 MG/DL >200 MG/DL CLASS. FOR PRIMARY LDL CHOL PREVENTION: LDL CHOL-CHILD/ADOLESCENTS* DESIRABLE: <130 MG/DL <110 MG/DL BORDERLINE-HIGH RISK: 130- 159 MG/DL 110-129 MG/DL HIGH RISK: >160 MG/DL >130 MG/DL *CHILDREN AND ADOLESCENTS REPRESENTS INDIVIDUALA AGED 2-19 YEARS EXCLUSIVE. CL 104.6 mmol/L 98.0-107.0 [facility] ([facility] NORMAL RANGES Age WBC RBC HGB HCT MCV PLT Adult M 4.1-10.9 4.20-6.30 12.0-18.0 37.0-51.0 80-97 140-440 Adult F 4.1-10.9 4.04-5.48 12.0-18.0 37.0-51.0 80-97 140-440 0 -1 Yr 5.0-20.0 3.9-5.9 15-18 MV: 44 MV: 91 MV: 277 2-9 Yr. 6.0-17.0 3.8-5.4 11-13 MV: 37 MV: 78 MV: 300 10 Yrs. 5.0-13.0 3.8-5.4 12-15 MV: 39 MV: 80 MV: 250 NOTE: * FOR ADULT BLACK MALES AND FEMALES, NORMAL WBC IS 2.9-7.7 K/ML * FOR ADULT BLACK MALES AND FEMALES, NORMAL RBC,HGB, AND HCT IS 5% LESS SOURCE FOR DATA: [employer] 1800 OPERATION MANUAL( AUTOMATED BLOOD COUNTS AND DIFF.) APPENDIX B-3 CHRONIC KIDNEY DISEASE STAGING PER NKF: MALE GFR INTERPRETATION: 20-49 YRS: >60 mL/min Normal 50-59 YRS: >56 mL/min Normal 60-69 YRS: >49 mL/min Normal 70-79 YRS: >42 mL/min Normal 80 and above >35 mL/min Normal FEMALE GRF INTERPRETATION: 20-39 YRS: >60 mL/min Normal 40-49 YRS: >58 mL/min Normal 50-59 YRS: >51 mL/min Normal 60-69 YRS: >45 mL/min Normal 70-79 YRS: >39 mL/min Normal 80 and above >32 mL/min NormalCLASSIFICATION CHOLESTEROL FOR ADULTS CHILDREN/ADOLESCENTS* DESIRABLE: <200 MG/DL <170 MG/DL BORDER-LINE HIGH RISK: 200-239 MG/DL 170-199 MG/DL HIGH RISK: >240 MG/DL >200 MG/DL CLASS. FOR PRIMARY LDL CHOL PREVENTION: LDL CHOL-CHILD/ADOLESCENTS* DESIRABLE: <130 MG/DL <110 MG/DL BORDERLINE-HIGH RISK: 130- 159 MG/DL 110-129 MG/DL HIGH RISK: >160 MG/DL >130 MG/DL *CHILDREN AND ADOLESCENTS REPRESENTS INDIVIDUALA AGED 2-19 YEARS EXCLUSIVE. Co2 20.3 mmol/L 22.0-29.0 Below low normal [facility] ([facility] NORMAL RANGES Age WBC RBC HGB HCT MCV PLT Adult M 4.1-10.9 4.20-6.30 12.0-18.0 37.0-51.0 80-97 140-440 Adult F 4.1-10.9 4.04-5.48 12.0-18.0 37.0-51.0 80-97 140-440 0 -1 Yr 5.0-20.0 3.9-5.9 15-18 MV: 44 MV: 91 MV: 277 2-9 Yr. 6.0-17.0 3.8-5.4 11-13 MV: 37 MV: 78 MV: 300 10 Yrs. 5.0-13.0 3.8-5.4 12-15 MV: 39 MV: 80 MV: 250 NOTE: * FOR ADULT BLACK MALES AND FEMALES, NORMAL WBC IS 2.9-7.7 K/ML * FOR ADULT BLACK MALES AND FEMALES, NORMAL RBC,HGB, AND HCT IS 5% LESS SOURCE FOR DATA: Hamilton Thorne 1800 OPERATION MANUAL( AUTOMATED BLOOD COUNTS AND DIFF.) APPENDIX B-3 CHRONIC KIDNEY DISEASE STAGING PER NKF: MALE GFR INTERPRETATION: 20-49 YRS: >60 mL/min Normal 50-59 YRS: >56 mL/min Normal 60-69 YRS: >49 mL/min Normal 70-79 YRS: >42 mL/min Normal 80 and above >35 mL/min Normal FEMALE GRF INTERPRETATION: 20-39 YRS: >60 mL/min Normal 40-49 YRS: >58 mL/min Normal 50-59 YRS: >51 mL/min Normal 60-69 YRS: >45 mL/min Normal 70-79 YRS: >39 mL/min Normal 80 and above >32 mL/min NormalCLASSIFICATION CHOLESTEROL FOR ADULTS CHILDREN/ADOLESCENTS* DESIRABLE: <200 MG/DL <170 MG/DL BORDER-LINE HIGH RISK: 200-239 MG/DL 170-199 MG/DL HIGH RISK: >240 MG/DL >200 MG/DL CLASS. FOR PRIMARY LDL CHOL PREVENTION: LDL CHOL-CHILD/ADOLESCENTS* DESIRABLE: <130 MG/DL <110 MG/DL BORDERLINE-HIGH RISK: 130- 159 MG/DL 110-129 MG/DL HIGH RISK: >160 MG/DL >130 MG/DL *CHILDREN AND ADOLESCENTS REPRESENTS INDIVIDUALA AGED 2-19 YEARS EXCLUSIVE. TP 6.9 g/dL 6.6-8.7 [facility] ([facility] NORMAL RANGES Age WBC RBC HGB HCT MCV PLT Adult M 4.1-10.9 4.20-6.30 12.0-18.0 37.0-51.0 80-97 140-440 Adult F 4.1-10.9 4.04-5.48 12.0-18.0 37.0-51.0 80-97 140-440 0 -1 Yr 5.0-20.0 3.9-5.9 15-18 MV: 44 MV: 91 MV: 277 2-9 Yr. 6.0-17.0 3.8-5.4 11-13 MV: 37 MV: 78 MV: 300 10 Yrs. 5.0-13.0 3.8-5.4 12-15 MV: 39 MV: 80 MV: 250 NOTE: * FOR ADULT BLACK MALES AND FEMALES, NORMAL WBC IS 2.9-7.7 K/ML * FOR ADULT BLACK MALES AND FEMALES, NORMAL RBC,HGB, AND HCT IS 5% LESS SOURCE FOR DATA: Hamilton Thorne 1800 OPERATION MANUAL( AUTOMATED BLOOD COUNTS AND DIFF.) APPENDIX B-3 CHRONIC KIDNEY DISEASE STAGING PER NKF: MALE GFR INTERPRETATION: 20-49 YRS: >60 mL/min Normal 50-59 YRS: >56 mL/min Normal 60-69 YRS: >49 mL/min Normal 70-79 YRS: >42 mL/min Normal 80 and above >35 mL/min Normal FEMALE GRF INTERPRETATION: 20-39 YRS: >60 mL/min Normal 40-49 YRS: >58 mL/min Normal 50-59 YRS: >51 mL/min Normal 60-69 YRS: >45 mL/min Normal 70-79 YRS: >39 mL/min Normal 80 and above >32 mL/min NormalCLASSIFICATION CHOLESTEROL FOR ADULTS CHILDREN/ADOLESCENTS* DESIRABLE: <200 MG/DL <170 MG/DL BORDER-LINE HIGH RISK: 200-239 MG/DL 170-199 MG/DL HIGH RISK: >240 MG/DL >200 MG/DL CLASS. FOR PRIMARY LDL CHOL PREVENTION: LDL CHOL-CHILD/ADOLESCENTS* DESIRABLE: <130 MG/DL <110 MG/DL BORDERLINE-HIGH RISK: 130- 159 MG/DL 110-129 MG/DL HIGH RISK: >160 MG/DL >130 MG/DL *CHILDREN AND ADOLESCENTS REPRESENTS INDIVIDUALA AGED 2-19 YEARS EXCLUSIVE. CA 9.8 mg/dL 8.6-10.2 [facility] NORMAL RANGES Age WBC RBC HGB HCT MCV PLT Adult M 4.1-10.9 4.20-6.30 12.0-18.0 37.0-51.0 80-97 140-440 Adult F 4.1-10.9 4.04-5.48 12.0-18.0 37.0-51.0 80-97 140-440 0 -1 Yr 5.0-20.0 3.9-5.9 15-18 MV: 44 MV: 91 MV: 277 2-9 Yr. 6.0-17.0 3.8-5.4 11-13 MV: 37 MV: 78 MV: 300 10 Yrs. 5.0-13.0 3.8-5.4 12-15 MV: 39 MV: 80 MV: 250 NOTE: * FOR ADULT BLACK MALES AND FEMALES, NORMAL WBC IS 2.9-7.7 K/ML * FOR ADULT BLACK MALES AND FEMALES, NORMAL RBC,HGB, AND HCT IS 5% LESS SOURCE FOR DATA: Hamilton Thorne 1800 OPERATION MANUAL( AUTOMATED BLOOD COUNTS AND DIFF.) APPENDIX B-3 CHRONIC KIDNEY DISEASE STAGING PER NKF: MALE GFR INTERPRETATION: 20-49 YRS: >60 mL/min Normal 50-59 YRS: >56 mL/min Normal 60-69 YRS: >49 mL/min Normal 70-79 YRS: >42 mL/min Normal 80 and above >35 mL/min Normal FEMALE GRF INTERPRETATION: 20-39 YRS: >60 mL/min Normal 40-49 YRS: >58 mL/min Normal 50-59 YRS: >51 mL/min Normal 60-69 YRS: >45 mL/min Normal 70-79 YRS: >39 mL/min Normal 80 and above >32 mL/min NormalCLASSIFICATION CHOLESTEROL FOR ADULTS CHILDREN/ADOLESCENTS* DESIRABLE: <200 MG/DL <170 MG/DL BORDER-LINE HIGH RISK: 200-239 MG/DL 170-199 MG/DL HIGH RISK: >240 MG/DL >200 MG/DL CLASS. FOR PRIMARY LDL CHOL PREVENTION: LDL CHOL-CHILD/ADOLESCENTS* DESIRABLE: <130 MG/DL <110 MG/DL BORDERLINE-HIGH RISK: 130- 159 MG/DL 110-129 MG/DL HIGH RISK: >160 MG/DL >130 MG/DL *CHILDREN AND ADOLESCENTS REPRESENTS INDIVIDUALA AGED 2-19 YEARS EXCLUSIVE. A/G Ratio 1.6 [facility] NORMAL RANGES Age WBC RBC HGB HCT MCV PLT Adult M 4.1-10.9 4.20-6.30 12.0-18.0 37.0-51.0 80-97 140-440 Adult F 4.1-10.9 4.04-5.48 12.0-18.0 37.0-51.0 80-97 140-440 0 -1 Yr 5.0-20.0 3.9-5.9 15-18 MV: 44 MV: 91 MV: 277 2-9 Yr. 6.0-17.0 3.8-5.4 11-13 MV: 37 MV: 78 MV: 300 10 Yrs. 5.0-13.0 3.8-5.4 12-15 MV: 39 MV: 80 MV: 250 NOTE: * FOR ADULT BLACK MALES AND FEMALES, NORMAL WBC IS 2.9-7.7 K/ML * FOR ADULT BLACK MALES AND FEMALES, NORMAL RBC,HGB, AND HCT IS 5% LESS SOURCE FOR DATA: Hamilton Thorne 1800 OPERATION MANUAL( AUTOMATED BLOOD COUNTS AND DIFF.) APPENDIX B-3 CHRONIC KIDNEY DISEASE STAGING PER NKF: MALE GFR INTERPRETATION: 20-49 YRS: >60 mL/min Normal 50-59 YRS: >56 mL/min Normal 60-69 YRS: >49 mL/min Normal 70-79 YRS: >42 mL/min Normal 80 and above >35 mL/min Normal FEMALE GRF INTERPRETATION: 20-39 YRS: >60 mL/min Normal 40-49 YRS: >58 mL/min Normal 50-59 YRS: >51 mL/min Normal 60-69 YRS: >45 mL/min Normal 70-79 YRS: >39 mL/min Normal 80 and above >32 mL/min NormalCLASSIFICATION CHOLESTEROL FOR ADULTS CHILDREN/ADOLESCENTS* DESIRABLE: <200 MG/DL <170 MG/DL BORDER-LINE HIGH RISK: 200-239 MG/DL 170-199 MG/DL HIGH RISK: >240 MG/DL >200 MG/DL CLASS. FOR PRIMARY LDL CHOL PREVENTION: LDL CHOL-CHILD/ADOLESCENTS* DESIRABLE: <130 MG/DL <110 MG/DL BORDERLINE-HIGH RISK: 130- 159 MG/DL 110-129 MG/DL HIGH RISK: >160 MG/DL >130 MG/DL *CHILDREN AND ADOLESCENTS REPRESENTS INDIVIDUALA AGED 2-19 YEARS EXCLUSIVE. Alb 4.3 g/dL 3.4-4.8 [facility] NORMAL RANGES Age WBC RBC HGB HCT MCV PLT Adult M 4.1-10.9 4.20-6.30 12.0-18.0 37.0-51.0 80-97 140-440 Adult F 4.1-10.9 4.04-5.48 12.0-18.0 37.0-51.0 80-97 140-440 0 -1 Yr 5.0-20.0 3.9-5.9 15-18 MV: 44 MV: 91 MV: 277 2-9 Yr. 6.0-17.0 3.8-5.4 11-13 MV: 37 MV: 78 MV: 300 10 Yrs. 5.0-13.0 3.8-5.4 12-15 MV: 39 MV: 80 MV: 250 NOTE: * FOR ADULT BLACK MALES AND FEMALES, NORMAL WBC IS 2.9-7.7 K/ML * FOR ADULT BLACK MALES AND FEMALES, NORMAL RBC,HGB, AND HCT IS 5% LESS SOURCE FOR DATA: Hamilton Thorne 1800 OPERATION MANUAL( AUTOMATED BLOOD COUNTS AND DIFF.) APPENDIX B-3 CHRONIC KIDNEY DISEASE STAGING PER NKF: MALE GFR INTERPRETATION: 20-49 YRS: >60 mL/min Normal 50-59 YRS: >56 mL/min Normal 60-69 YRS: >49 mL/min Normal 70-79 YRS: >42 mL/min Normal 80 and above >35 mL/min Normal FEMALE GRF INTERPRETATION: 20-39 YRS: >60 mL/min Normal 40-49 YRS: >58 mL/min Normal 50-59 YRS: >51 mL/min Normal 60-69 YRS: >45 mL/min Normal 70-79 YRS: >39 mL/min Normal 80 and above >32 mL/min NormalCLASSIFICATION CHOLESTEROL FOR ADULTS CHILDREN/ADOLESCENTS* DESIRABLE: <200 MG/DL <170 MG/DL BORDER-LINE HIGH RISK: 200-239 MG/DL 170-199 MG/DL HIGH RISK: >240 MG/DL >200 MG/DL CLASS. FOR PRIMARY LDL CHOL PREVENTION: LDL CHOL-CHILD/ADOLESCENTS* DESIRABLE: <130 MG/DL <110 MG/DL BORDERLINE-HIGH RISK: 130- 159 MG/DL 110-129 MG/DL HIGH RISK: >160 MG/DL >130 MG/DL *CHILDREN AND ADOLESCENTS REPRESENTS INDIVIDUALA AGED 2-19 YEARS EXCLUSIVE. Alp 126.3 U/L 35-129 [facility] NORMAL RANGES Age WBC RBC HGB HCT MCV PLT Adult M 4.1-10.9 4.20-6.30 12.0-18.0 37.0-51.0 80-97 140-440 Adult F 4.1-10.9 4.04-5.48 12.0-18.0 37.0-51.0 80-97 140-440 0 -1 Yr 5.0-20.0 3.9-5.9 15-18 MV: 44 MV: 91 MV: 277 2-9 Yr. 6.0-17.0 3.8-5.4 11-13 MV: 37 MV: 78 MV: 300 10 Yrs. 5.0-13.0 3.8-5.4 12-15 MV: 39 MV: 80 MV: 250 NOTE: * FOR ADULT BLACK MALES AND FEMALES, NORMAL WBC IS 2.9-7.7 K/ML * FOR ADULT BLACK MALES AND FEMALES, NORMAL RBC,HGB, AND HCT IS 5% LESS SOURCE FOR DATA: Hamilton Thorne 1800 OPERATION MANUAL( AUTOMATED BLOOD COUNTS AND DIFF.) APPENDIX B-3 CHRONIC KIDNEY DISEASE STAGING PER NKF: MALE GFR INTERPRETATION: 20-49 YRS: >60 mL/min Normal 50-59 YRS: >56 mL/min Normal 60-69 YRS: >49 mL/min Normal 70-79 YRS: >42 mL/min Normal 80 and above >35 mL/min Normal FEMALE GRF INTERPRETATION: 20-39 YRS: >60 mL/min Normal 40-49 YRS: >58 mL/min Normal 50-59 YRS: >51 mL/min Normal 60-69 YRS: >45 mL/min Normal 70-79 YRS: >39 mL/min Normal 80 and above >32 mL/min NormalCLASSIFICATION CHOLESTEROL FOR ADULTS CHILDREN/ADOLESCENTS* DESIRABLE: <200 MG/DL <170 MG/DL BORDER-LINE HIGH RISK: 200-239 MG/DL 170-199 MG/DL HIGH RISK: >240 MG/DL >200 MG/DL CLASS. FOR PRIMARY LDL CHOL PREVENTION: LDL CHOL-CHILD/ADOLESCENTS* DESIRABLE: <130 MG/DL <110 MG/DL BORDERLINE-HIGH RISK: 130- 159 MG/DL 110-129 MG/DL HIGH RISK: >160 MG/DL >130 MG/DL *CHILDREN AND ADOLESCENTS REPRESENTS INDIVIDUALA AGED 2-19 YEARS EXCLUSIVE. Alt (SGPT) 13 U/L 0-41 [facility] ([facility] NORMAL RANGES Age WBC RBC HGB HCT MCV PLT Adult M 4.1-10.9 4.20-6.30 12.0-18.0 37.0-51.0 80-97 140-440 Adult F 4.1-10.9 4.04-5.48 12.0-18.0 37.0-51.0 80-97 140-440 0 -1 Yr 5.0-20.0 3.9-5.9 15-18 MV: 44 MV: 91 MV: 277 2-9 Yr. 6.0-17.0 3.8-5.4 11-13 MV: 37 MV: 78 MV: 300 10 Yrs. 5.0-13.0 3.8-5.4 12-15 MV: 39 MV: 80 MV: 250 NOTE: * FOR ADULT BLACK MALES AND FEMALES, NORMAL WBC IS 2.9-7.7 K/ML * FOR ADULT BLACK MALES AND FEMALES, NORMAL RBC,HGB, AND HCT IS 5% LESS SOURCE FOR DATA: Hamilton Thorne 1800 OPERATION MANUAL( AUTOMATED BLOOD COUNTS AND DIFF.) APPENDIX B-3 CHRONIC KIDNEY DISEASE STAGING PER NKF: MALE GFR INTERPRETATION: 20-49 YRS: >60 mL/min Normal 50-59 YRS: >56 mL/min Normal 60-69 YRS: >49 mL/min Normal 70-79 YRS: >42 mL/min Normal 80 and above >35 mL/min Normal FEMALE GRF INTERPRETATION: 20-39 YRS: >60 mL/min Normal 40-49 YRS: >58 mL/min Normal 50-59 YRS: >51 mL/min Normal 60-69 YRS: >45 mL/min Normal 70-79 YRS: >39 mL/min Normal 80 and above >32 mL/min NormalCLASSIFICATION CHOLESTEROL FOR ADULTS CHILDREN/ADOLESCENTS* DESIRABLE: <200 MG/DL <170 MG/DL BORDER-LINE HIGH RISK: 200-239 MG/DL 170-199 MG/DL HIGH RISK: >240 MG/DL >200 MG/DL CLASS. FOR PRIMARY LDL CHOL PREVENTION: LDL CHOL-CHILD/ADOLESCENTS* DESIRABLE: <130 MG/DL <110 MG/DL BORDERLINE-HIGH RISK: 130- 159 MG/DL 110-129 MG/DL HIGH RISK: >160 MG/DL >130 MG/DL *CHILDREN AND ADOLESCENTS REPRESENTS INDIVIDUALA AGED 2-19 YEARS EXCLUSIVE. Globulin 2.7 [facility] ([facility] NORMAL RANGES Age WBC RBC HGB HCT MCV PLT Adult M 4.1-10.9 4.20-6.30 12.0-18.0 37.0-51.0 80-97 140-440 Adult F 4.1-10.9 4.04-5.48 12.0-18.0 37.0-51.0 80-97 140-440 0 -1 Yr 5.0-20.0 3.9-5.9 15-18 MV: 44 MV: 91 MV: 277 2-9 Yr. 6.0-17.0 3.8-5.4 11-13 MV: 37 MV: 78 MV: 300 10 Yrs. 5.0-13.0 3.8-5.4 12-15 MV: 39 MV: 80 MV: 250 NOTE: * FOR ADULT BLACK MALES AND FEMALES, NORMAL WBC IS 2.9-7.7 K/ML * FOR ADULT BLACK MALES AND FEMALES, NORMAL RBC,HGB, AND HCT IS 5% LESS SOURCE FOR DATA: Hamilton Thorne 1800 OPERATION MANUAL( AUTOMATED BLOOD COUNTS AND DIFF.) APPENDIX B-3 CHRONIC KIDNEY DISEASE STAGING PER NKF: MALE GFR INTERPRETATION: 20-49 YRS: >60 mL/min Normal 50-59 YRS: >56 mL/min Normal 60-69 YRS: >49 mL/min Normal 70-79 YRS: >42 mL/min Normal 80 and above >35 mL/min Normal FEMALE GRF INTERPRETATION: 20-39 YRS: >60 mL/min Normal 40-49 YRS: >58 mL/min Normal 50-59 YRS: >51 mL/min Normal 60-69 YRS: >45 mL/min Normal 70-79 YRS: >39 mL/min Normal 80 and above >32 mL/min NormalCLASSIFICATION CHOLESTEROL FOR ADULTS CHILDREN/ADOLESCENTS* DESIRABLE: <200 MG/DL <170 MG/DL BORDER-LINE HIGH RISK: 200-239 MG/DL 170-199 MG/DL HIGH RISK: >240 MG/DL >200 MG/DL CLASS. FOR PRIMARY LDL CHOL PREVENTION: LDL CHOL-CHILD/ADOLESCENTS* DESIRABLE: <130 MG/DL <110 MG/DL BORDERLINE-HIGH RISK: 130- 159 MG/DL 110-129 MG/DL HIGH RISK: >160 MG/DL >130 MG/DL *CHILDREN AND ADOLESCENTS REPRESENTS INDIVIDUALA AGED 2-19 YEARS EXCLUSIVE. Ast (Sgot) 19 U/L 0-40 [facility] NORMAL RANGES Age WBC RBC HGB HCT MCV PLT Adult M 4.1-10.9 4.20-6.30 12.0-18.0 37.0-51.0 80-97 140-440 Adult F 4.1-10.9 4.04-5.48 12.0-18.0 37.0-51.0 80-97 140-440 0 -1 Yr 5.0-20.0 3.9-5.9 15-18 MV: 44 MV: 91 MV: 277 2-9 Yr. 6.0-17.0 3.8-5.4 11-13 MV: 37 MV: 78 MV: 300 10 Yrs. 5.0-13.0 3.8-5.4 12-15 MV: 39 MV: 80 MV: 250 NOTE: * FOR ADULT BLACK MALES AND FEMALES, NORMAL WBC IS 2.9-7.7 K/ML * FOR ADULT BLACK MALES AND FEMALES, NORMAL RBC,HGB, AND HCT IS 5% LESS SOURCE FOR DATA: Hamilton Thorne 1800 OPERATION MANUAL( AUTOMATED BLOOD COUNTS AND DIFF.) APPENDIX B-3 CHRONIC KIDNEY DISEASE STAGING PER NKF: MALE GFR INTERPRETATION: 20-49 YRS: >60 mL/min Normal 50-59 YRS: >56 mL/min Normal 60-69 YRS: >49 mL/min Normal 70-79 YRS: >42 mL/min Normal 80 and above >35 mL/min Normal FEMALE GRF INTERPRETATION: 20-39 YRS: >60 mL/min Normal 40-49 YRS: >58 mL/min Normal 50-59 YRS: >51 mL/min Normal 60-69 YRS: >45 mL/min Normal 70-79 YRS: >39 mL/min Normal 80 and above >32 mL/min NormalCLASSIFICATION CHOLESTEROL FOR ADULTS CHILDREN/ADOLESCENTS* DESIRABLE: <200 MG/DL <170 MG/DL BORDER-LINE HIGH RISK: 200-239 MG/DL 170-199 MG/DL HIGH RISK: >240 MG/DL >200 MG/DL CLASS. FOR PRIMARY LDL CHOL PREVENTION: LDL CHOL-CHILD/ADOLESCENTS* DESIRABLE: <130 MG/DL <110 MG/DL BORDERLINE-HIGH RISK: 130- 159 MG/DL 110-129 MG/DL HIGH RISK: >160 MG/DL >130 MG/DL *CHILDREN AND ADOLESCENTS REPRESENTS INDIVIDUALA AGED 2-19 YEARS EXCLUSIVE. Osmolality-Calculated 276.2 [facility] ([facility] NORMAL RANGES Age WBC RBC HGB HCT MCV PLT Adult M 4.1-10.9 4.20-6.30 12.0-18.0 37.0-51.0 80-97 140-440 Adult F 4.1-10.9 4.04-5.48 12.0-18.0 37.0-51.0 80-97 140-440 0 -1 Yr 5.0-20.0 3.9-5.9 15-18 MV: 44 MV: 91 MV: 277 2-9 Yr. 6.0-17.0 3.8-5.4 11-13 MV: 37 MV: 78 MV: 300 10 Yrs. 5.0-13.0 3.8-5.4 12-15 MV: 39 MV: 80 MV: 250 NOTE: * FOR ADULT BLACK MALES AND FEMALES, NORMAL WBC IS 2.9-7.7 K/ML * FOR ADULT BLACK MALES AND FEMALES, NORMAL RBC,HGB, AND HCT IS 5% LESS SOURCE FOR DATA: Hamilton Thorne 1800 OPERATION MANUAL( AUTOMATED BLOOD COUNTS AND DIFF.) APPENDIX B-3 CHRONIC KIDNEY DISEASE STAGING PER NKF: MALE GFR INTERPRETATION: 20-49 YRS: >60 mL/min Normal 50-59 YRS: >56 mL/min Normal 60-69 YRS: >49 mL/min Normal 70-79 YRS: >42 mL/min Normal 80 and above >35 mL/min Normal FEMALE GRF INTERPRETATION: 20-39 YRS: >60 mL/min Normal 40-49 YRS: >58 mL/min Normal 50-59 YRS: >51 mL/min Normal 60-69 YRS: >45 mL/min Normal 70-79 YRS: >39 mL/min Normal 80 and above >32 mL/min NormalCLASSIFICATION CHOLESTEROL FOR ADULTS CHILDREN/ADOLESCENTS* DESIRABLE: <200 MG/DL <170 MG/DL BORDER-LINE HIGH RISK: 200-239 MG/DL 170-199 MG/DL HIGH RISK: >240 MG/DL >200 MG/DL CLASS. FOR PRIMARY LDL CHOL PREVENTION: LDL CHOL-CHILD/ADOLESCENTS* DESIRABLE: <130 MG/DL <110 MG/DL BORDERLINE-HIGH RISK: 130- 159 MG/DL 110-129 MG/DL HIGH RISK: >160 MG/DL >130 MG/DL *CHILDREN AND ADOLESCENTS REPRESENTS INDIVIDUALA AGED 2-19 YEARS EXCLUSIVE. Tbili 0.26 mg/dL 0.0-1.2 [facility] ([facility] NORMAL RANGES Age WBC RBC HGB HCT MCV PLT Adult M 4.1-10.9 4.20-6.30 12.0-18.0 37.0-51.0 80-97 140-440 Adult F 4.1-10.9 4.04-5.48 12.0-18.0 37.0-51.0 80-97 140-440 0 -1 Yr 5.0-20.0 3.9-5.9 15-18 MV: 44 MV: 91 MV: 277 2-9 Yr. 6.0-17.0 3.8-5.4 11-13 MV: 37 MV: 78 MV: 300 10 Yrs. 5.0-13.0 3.8-5.4 12-15 MV: 39 MV: 80 MV: 250 NOTE: * FOR ADULT BLACK MALES AND FEMALES, NORMAL WBC IS 2.9-7.7 K/ML * FOR ADULT BLACK MALES AND FEMALES, NORMAL RBC,HGB, AND HCT IS 5% LESS SOURCE FOR DATA: BORIS DYN 1800 OPERATION MANUAL( AUTOMATED BLOOD COUNTS AND DIFF.) APPENDIX B-3 CHRONIC KIDNEY DISEASE STAGING PER NKF: MALE GFR INTERPRETATION: 20-49 YRS: >60 mL/min Normal 50-59 YRS: >56 mL/min Normal 60-69 YRS: >49 mL/min Normal 70-79 YRS: >42 mL/min Normal 80 and above >35 mL/min Normal FEMALE GRF INTERPRETATION: 20-39 YRS: >60 mL/min Normal 40-49 YRS: >58 mL/min Normal 50-59 YRS: >51 mL/min Normal 60-69 YRS: >45 mL/min Normal 70-79 YRS: >39 mL/min Normal 80 and above >32 mL/min NormalCLASSIFICATION CHOLESTEROL FOR ADULTS CHILDREN/ADOLESCENTS* DESIRABLE: <200 MG/DL <170 MG/DL BORDER-LINE HIGH RISK: 200-239 MG/DL 170-199 MG/DL HIGH RISK: >240 MG/DL >200 MG/DL CLASS. FOR PRIMARY LDL CHOL PREVENTION: LDL CHOL-CHILD/ADOLESCENTS* DESIRABLE: <130 MG/DL <110 MG/DL BORDERLINE-HIGH RISK: 130- 159 MG/DL 110-129 MG/DL HIGH RISK: >160 MG/DL >130 MG/DL *CHILDREN AND ADOLESCENTS REPRESENTS INDIVIDUALA AGED 2-19 YEARS EXCLUSIVE. eGFR Non-Afr. [place] 58 # [facility] ([facility] NORMAL RANGES Age WBC RBC HGB HCT MCV PLT Adult M 4.1-10.9 4.20-6.30 12.0-18.0 37.0-51.0 80-97 140-440 Adult F 4.1-10.9 4.04-5.48 12.0-18.0 37.0-51.0 80-97 140-440 0 -1 Yr 5.0-20.0 3.9-5.9 15-18 MV: 44 MV: 91 MV: 277 2-9 Yr. 6.0-17.0 3.8-5.4 11-13 MV: 37 MV: 78 MV: 300 10 Yrs. 5.0-13.0 3.8-5.4 12-15 MV: 39 MV: 80 MV: 250 NOTE: * FOR ADULT BLACK MALES AND FEMALES, NORMAL WBC IS 2.9-7.7 K/ML * FOR ADULT BLACK MALES AND FEMALES, NORMAL RBC,HGB, AND HCT IS 5% LESS SOURCE FOR DATA: Hamilton Thorne 1800 OPERATION MANUAL( AUTOMATED BLOOD COUNTS AND DIFF.) APPENDIX B-3 CHRONIC KIDNEY DISEASE STAGING PER NKF: MALE GFR INTERPRETATION: 20-49 YRS: >60 mL/min Normal 50-59 YRS: >56 mL/min Normal 60-69 YRS: >49 mL/min Normal 70-79 YRS: >42 mL/min Normal 80 and above >35 mL/min Normal FEMALE GRF INTERPRETATION: 20-39 YRS: >60 mL/min Normal 40-49 YRS: >58 mL/min Normal 50-59 YRS: >51 mL/min Normal 60-69 YRS: >45 mL/min Normal 70-79 YRS: >39 mL/min Normal 80 and above >32 mL/min NormalCLASSIFICATION CHOLESTEROL FOR ADULTS CHILDREN/ADOLESCENTS* DESIRABLE: <200 MG/DL <170 MG/DL BORDER-LINE HIGH RISK: 200-239 MG/DL 170-199 MG/DL HIGH RISK: >240 MG/DL >200 MG/DL CLASS. FOR PRIMARY LDL CHOL PREVENTION: LDL CHOL-CHILD/ADOLESCENTS* DESIRABLE: <130 MG/DL <110 MG/DL BORDERLINE-HIGH RISK: 130- 159 MG/DL 110-129 MG/DL HIGH RISK: >160 MG/DL >130 MG/DL *CHILDREN AND ADOLESCENTS REPRESENTS INDIVIDUALA AGED 2-19 YEARS EXCLUSIVE. Anion Gap 18 mmol/L [facility] NORMAL RANGES Age WBC RBC HGB HCT MCV PLT Adult M 4.1-10.9 4.20-6.30 12.0-18.0 37.0-51.0 80-97 140-440 Adult F 4.1-10.9 4.04-5.48 12.0-18.0 37.0-51.0 80-97 140-440 0 -1 Yr 5.0-20.0 3.9-5.9 15-18 MV: 44 MV: 91 MV: 277 2-9 Yr. 6.0-17.0 3.8-5.4 11-13 MV: 37 MV: 78 MV: 300 10 Yrs. 5.0-13.0 3.8-5.4 12-15 MV: 39 MV: 80 MV: 250 NOTE: * FOR ADULT BLACK MALES AND FEMALES, NORMAL WBC IS 2.9-7.7 K/ML * FOR ADULT BLACK MALES AND FEMALES, NORMAL RBC,HGB, AND HCT IS 5% LESS SOURCE FOR DATA: [employer] 1800 OPERATION MANUAL( AUTOMATED BLOOD COUNTS AND DIFF.) APPENDIX B-3 CHRONIC KIDNEY DISEASE STAGING PER NKF: MALE GFR INTERPRETATION: 20-49 YRS: >60 mL/min Normal 50-59 YRS: >56 mL/min Normal 60-69 YRS: >49 mL/min Normal 70-79 YRS: >42 mL/min Normal 80 and above >35 mL/min Normal FEMALE GRF INTERPRETATION: 20-39 YRS: >60 mL/min Normal 40-49 YRS: >58 mL/min Normal 50-59 YRS: >51 mL/min Normal 60-69 YRS: >45 mL/min Normal 70-79 YRS: >39 mL/min Normal 80 and above >32 mL/min NormalCLASSIFICATION CHOLESTEROL FOR ADULTS CHILDREN/ADOLESCENTS* DESIRABLE: <200 MG/DL <170 MG/DL BORDER-LINE HIGH RISK: 200-239 MG/DL 170-199 MG/DL HIGH RISK: >240 MG/DL >200 MG/DL CLASS. FOR PRIMARY LDL CHOL PREVENTION: LDL CHOL-CHILD/ADOLESCENTS* DESIRABLE: <130 MG/DL <110 MG/DL BORDERLINE-HIGH RISK: 130- 159 MG/DL 110-129 MG/DL HIGH RISK: >160 MG/DL >130 MG/DL *CHILDREN AND ADOLESCENTS REPRESENTS INDIVIDUALA AGED 2-19 YEARS EXCLUSIVE. eGFR 68 # [facility] ( [facility] NORMAL RANGES Age WBC RBC HGB HCT MCV PLT Adult M 4.1-10.9 4.20-6.30 12.0-18.0 37.0-51.0 80-97 140-440 Adult F 4.1-10.9 4.04-5.48 12.0-18.0 37.0-51.0 80-97 140-440 0 -1 Yr 5.0-20.0 3.9-5.9 15-18 MV: 44 MV: 91 MV: 277 2-9 Yr. 6.0-17.0 3.8-5.4 11-13 MV: 37 MV: 78 MV: 300 10 Yrs. 5.0-13.0 3.8-5.4 12-15 MV: 39 MV: 80 MV: 250 NOTE: * FOR ADULT BLACK MALES AND FEMALES, NORMAL WBC IS 2.9-7.7 K/ML * FOR ADULT BLACK MALES AND FEMALES, NORMAL RBC,HGB, AND HCT IS 5% LESS SOURCE FOR DATA: [employer] 1800 OPERATION MANUAL( AUTOMATED BLOOD COUNTS AND DIFF.) APPENDIX B-3 CHRONIC KIDNEY DISEASE STAGING PER NKF: MALE GFR INTERPRETATION: 20-49 YRS: >60 mL/min Normal 50-59 YRS: >56 mL/min Normal 60-69 YRS: >49 mL/min Normal 70-79 YRS: >42 mL/min Normal 80 and above >35 mL/min Normal FEMALE GRF INTERPRETATION: 20-39 YRS: >60 mL/min Normal 40-49 YRS: >58 mL/min Normal 50-59 YRS: >51 mL/min Normal 60-69 YRS: >45 mL/min Normal 70-79 YRS: >39 mL/min Normal 80 and above >32 mL/min NormalCLASSIFICATION CHOLESTEROL FOR ADULTS CHILDREN/ADOLESCENTS* DESIRABLE: <200 MG/DL <170 MG/DL BORDER-LINE HIGH RISK: 200-239 MG/DL 170-199 MG/DL HIGH RISK: >240 MG/DL >200 MG/DL CLASS. FOR PRIMARY LDL CHOL PREVENTION: LDL CHOL-CHILD/ADOLESCENTS* DESIRABLE: <130 MG/DL <110 MG/DL BORDERLINE-HIGH RISK: 130- 159 MG/DL 110-129 MG/DL HIGH RISK: >160 MG/DL >130 MG/DL *CHILDREN AND ADOLESCENTS REPRESENTS INDIVIDUALA AGED 2-19 YEARS EXCLUSIVE. ID Date Data Source [id number] 08/11/2020 03:05:00 PM EDT [facility] ([facility] Name Value Range Interpretation Code Description Data Babita rce(s) Supporting Document(s) WBC 12.7 10E3/uL 4.1-10.9 Above high normal MEDEN T ([facility] NORMAL RANGES Age WBC RBC HGB HCT MCV PLT Adult M 4.1-10.9 4.20-6.30 12.0-18.0 37.0-51.0 80-97 140-440 Adult F 4.1-10.9 4.04-5.48 12.0-18.0 37.0-51.0 80-97 140-440 0 -1 Yr 5.0-20.0 3.9-5.9 15-18 MV: 44 MV: 91 MV: 277 2-9 Yr. 6.0-17.0 3.8-5.4 11-13 MV: 37 MV: 78 MV: 300 10 Yrs. 5.0-13.0 3.8-5.4 12-15 MV: 39 MV: 80 MV: 250 NOTE: * FOR ADULT BLACK MALES AND FEMALES, NORMAL WBC IS 2.9-7.7 K/ML * FOR ADULT BLACK MALES AND FEMALES, NORMAL RBC,HGB, AND HCT IS 5% LESS SOURCE FOR DATA: [employer] 1800 OPERATION MANUAL( AUTOMATED BLOOD COUNTS AND DIFF.) APPENDIX B-3 CHRONIC KIDNEY DISEASE STAGING PER NKF: MALE GFR INTERPRETATION: 20-49 YRS: >60 mL/min Normal 50-59 YRS: >56 mL/min Normal 60-69 YRS: >49 mL/min Normal 70-79 YRS: >42 mL/min Normal 80 and above >35 mL/min Normal FEMALE GRF INTERPRETATION: 20-39 YRS: >60 mL/min Normal 40-49 YRS: >58 mL/min Normal 50-59 YRS: >51 mL/min Normal 60-69 YRS: >45 mL/min Normal 70-79 YRS: >39 mL/min Normal 80 and above >32 mL/min NormalCLASSIFICATION CHOLESTEROL FOR ADULTS CHILDREN/ADOLESCENTS* DESIRABLE: <200 MG/DL <170 MG/DL BORDER-LINE HIGH RISK: 200-239 MG/DL 170-199 MG/DL HIGH RISK: >240 MG/DL >200 MG/DL CLASS. FOR PRIMARY LDL CHOL PREVENTION: LDL CHOL-CHILD/ADOLESCENTS* DESIRABLE: <130 MG/DL <110 MG/DL BORDERLINE-HIGH RISK: 130- 159 MG/DL 110-129 MG/DL HIGH RISK: >160 MG/DL >130 MG/DL *CHILDREN AND ADOLESCENTS REPRESENTS INDIVIDUALA AGED 2-19 YEARS EXCLUSIVE. HCT 45.5 % 37.0-51.0 ALVINA ([facility] NORMAL RANGES Age WBC RBC HGB HCT MCV PLT Adult M 4.1-10.9 4.20-6.30 12.0-18.0 37.0-51.0 80-97 140-440 Adult F 4.1-10.9 4.04-5.48 12.0-18.0 37.0-51.0 80-97 140-440 0 -1 Yr 5.0-20.0 3.9-5.9 15-18 MV: 44 MV: 91 MV: 277 2-9 Yr. 6.0-17.0 3.8-5.4 11-13 MV: 37 MV: 78 MV: 300 10 Yrs. 5.0-13.0 3.8-5.4 12-15 MV: 39 MV: 80 MV: 250 NOTE: * FOR ADULT BLACK MALES AND FEMALES, NORMAL WBC IS 2.9-7.7 K/ML * FOR ADULT BLACK MALES AND FEMALES, NORMAL RBC,HGB, AND HCT IS 5% LESS SOURCE FOR DATA: [employer] 1800 OPERATION MANUAL( AUTOMATED BLOOD COUNTS AND DIFF.) APPENDIX B-3 CHRONIC KIDNEY DISEASE STAGING PER NKF: MALE GFR INTERPRETATION: 20-49 YRS: >60 mL/min Normal 50-59 YRS: >56 mL/min Normal 60-69 YRS: >49 mL/min Normal 70-79 YRS: >42 mL/min Normal 80 and above >35 mL/min Normal FEMALE GRF INTERPRETATION: 20-39 YRS: >60 mL/min Normal 40-49 YRS: >58 mL/min Normal 50-59 YRS: >51 mL/min Normal 60-69 YRS: >45 mL/min Normal 70-79 YRS: >39 mL/min Normal 80 and above >32 mL/min NormalCLASSIFICATION CHOLESTEROL FOR ADULTS CHILDREN/ADOLESCENTS* DESIRABLE: <200 MG/DL <170 MG/DL BORDER-LINE HIGH RISK: 200-239 MG/DL 170-199 MG/DL HIGH RISK: >240 MG/DL >200 MG/DL CLASS. FOR PRIMARY LDL CHOL PREVENTION: LDL CHOL-CHILD/ADOLESCENTS* DESIRABLE: <130 MG/DL <110 MG/DL BORDERLINE-HIGH RISK: 130- 159 MG/DL 110-129 MG/DL HIGH RISK: >160 MG/DL >130 MG/DL *CHILDREN AND ADOLESCENTS REPRESENTS INDIVIDUALA AGED 2-19 YEARS EXCLUSIVE. HGB 14.9 g/dL 12.0-18.0 [facility] NORMAL RANGES Age WBC RBC HGB HCT MCV PLT Adult M 4.1-10.9 4.20-6.30 12.0-18.0 37.0-51.0 80-97 140-440 Adult F 4.1-10.9 4.04-5.48 12.0-18.0 37.0-51.0 80-97 140-440 0 -1 Yr 5.0-20.0 3.9-5.9 15-18 MV: 44 MV: 91 MV: 277 2-9 Yr. 6.0-17.0 3.8-5.4 11-13 MV: 37 MV: 78 MV: 300 10 Yrs. 5.0-13.0 3.8-5.4 12-15 MV: 39 MV: 80 MV: 250 NOTE: * FOR ADULT BLACK MALES AND FEMALES, NORMAL WBC IS 2.9-7.7 K/ML * FOR ADULT BLACK MALES AND FEMALES, NORMAL RBC,HGB, AND HCT IS 5% LESS SOURCE FOR DATA: [employer] DYN 1800 OPERATION MANUAL( AUTOMATED BLOOD COUNTS AND DIFF.) APPENDIX B-3 CHRONIC KIDNEY DISEASE STAGING PER NKF: MALE GFR INTERPRETATION: 20-49 YRS: >60 mL/min Normal 50-59 YRS: >56 mL/min Normal 60-69 YRS: >49 mL/min Normal 70-79 YRS: >42 mL/min Normal 80 and above >35 mL/min Normal FEMALE GRF INTERPRETATION: 20-39 YRS: >60 mL/min Normal 40-49 YRS: >58 mL/min Normal 50-59 YRS: >51 mL/min Normal 60-69 YRS: >45 mL/min Normal 70-79 YRS: >39 mL/min Normal 80 and above >32 mL/min NormalCLASSIFICATION CHOLESTEROL FOR ADULTS CHILDREN/ADOLESCENTS* DESIRABLE: <200 MG/DL <170 MG/DL BORDER-LINE HIGH RISK: 200-239 MG/DL 170-199 MG/DL HIGH RISK: >240 MG/DL >200 MG/DL CLASS. FOR PRIMARY LDL CHOL PREVENTION: LDL CHOL-CHILD/ADOLESCENTS* DESIRABLE: <130 MG/DL <110 MG/DL BORDERLINE-HIGH RISK: 130- 159 MG/DL 110-129 MG/DL HIGH RISK: >160 MG/DL >130 MG/DL *CHILDREN AND ADOLESCENTS REPRESENTS INDIVIDUALA AGED 2-19 YEARS EXCLUSIVE. RBC 4.69 10E6/uL 4.20-6.30 [facility] ([facility] NORMAL RANGES Age WBC RBC HGB HCT MCV PLT Adult M 4.1-10.9 4.20-6.30 12.0-18.0 37.0-51.0 80-97 140-440 Adult F 4.1-10.9 4.04-5.48 12.0-18.0 37.0-51.0 80-97 140-440 0 -1 Yr 5.0-20.0 3.9-5.9 15-18 MV: 44 MV: 91 MV: 277 2-9 Yr. 6.0-17.0 3.8-5.4 11-13 MV: 37 MV: 78 MV: 300 10 Yrs. 5.0-13.0 3.8-5.4 12-15 MV: 39 MV: 80 MV: 250 NOTE: * FOR ADULT BLACK MALES AND FEMALES, NORMAL WBC IS 2.9-7.7 K/ML * FOR ADULT BLACK MALES AND FEMALES, NORMAL RBC,HGB, AND HCT IS 5% LESS SOURCE FOR DATA: [employer] 1800 OPERATION MANUAL( AUTOMATED BLOOD COUNTS AND DIFF.) APPENDIX B-3 CHRONIC KIDNEY DISEASE STAGING PER NKF: MALE GFR INTERPRETATION: 20-49 YRS: >60 mL/min Normal 50-59 YRS: >56 mL/min Normal 60-69 YRS: >49 mL/min Normal 70-79 YRS: >42 mL/min Normal 80 and above >35 mL/min Normal FEMALE GRF INTERPRETATION: 20-39 YRS: >60 mL/min Normal 40-49 YRS: >58 mL/min Normal 50-59 YRS: >51 mL/min Normal 60-69 YRS: >45 mL/min Normal 70-79 YRS: >39 mL/min Normal 80 and above >32 mL/min NormalCLASSIFICATION CHOLESTEROL FOR ADULTS CHILDREN/ADOLESCENTS* DESIRABLE: <200 MG/DL <170 MG/DL BORDER-LINE HIGH RISK: 200-239 MG/DL 170-199 MG/DL HIGH RISK: >240 MG/DL >200 MG/DL CLASS. FOR PRIMARY LDL CHOL PREVENTION: LDL CHOL-CHILD/ADOLESCENTS* DESIRABLE: <130 MG/DL <110 MG/DL BORDERLINE-HIGH RISK: 130- 159 MG/DL 110-129 MG/DL HIGH RISK: >160 MG/DL >130 MG/DL *CHILDREN AND ADOLESCENTS REPRESENTS INDIVIDUALA AGED 2-19 YEARS EXCLUSIVE. MCHC 32.7 g/dL 31.0-36.0 [facility] NORMAL RANGES Age WBC RBC HGB HCT MCV PLT Adult M 4.1-10.9 4.20-6.30 12.0-18.0 37.0-51.0 80-97 140-440 Adult F 4.1-10.9 4.04-5.48 12.0-18.0 37.0-51.0 80-97 140-440 0 -1 Yr 5.0-20.0 3.9-5.9 15-18 MV: 44 MV: 91 MV: 277 2-9 Yr. 6.0-17.0 3.8-5.4 11-13 MV: 37 MV: 78 MV: 300 10 Yrs. 5.0-13.0 3.8-5.4 12-15 MV: 39 MV: 80 MV: 250 NOTE: * FOR ADULT BLACK MALES AND FEMALES, NORMAL WBC IS 2.9-7.7 K/ML * FOR ADULT BLACK MALES AND FEMALES, NORMAL RBC,HGB, AND HCT IS 5% LESS SOURCE FOR DATA: [employer]orne 1800 OPERATION MANUAL( AUTOMATED BLOOD COUNTS AND DIFF.) APPENDIX B-3 CHRONIC KIDNEY DISEASE STAGING PER NKF: MALE GFR INTERPRETATION: 20-49 YRS: >60 mL/min Normal 50-59 YRS: >56 mL/min Normal 60-69 YRS: >49 mL/min Normal 70-79 YRS: >42 mL/min Normal 80 and above >35 mL/min Normal FEMALE GRF INTERPRETATION: 20-39 YRS: >60 mL/min Normal 40-49 YRS: >58 mL/min Normal 50-59 YRS: >51 mL/min Normal 60-69 YRS: >45 mL/min Normal 70-79 YRS: >39 mL/min Normal 80 and above >32 mL/min NormalCLASSIFICATION CHOLESTEROL FOR ADULTS CHILDREN/ADOLESCENTS* DESIRABLE: <200 MG/DL <170 MG/DL BORDER-LINE HIGH RISK: 200-239 MG/DL 170-199 MG/DL HIGH RISK: >240 MG/DL >200 MG/DL CLASS. FOR PRIMARY LDL CHOL PREVENTION: LDL CHOL-CHILD/ADOLESCENTS* DESIRABLE: <130 MG/DL <110 MG/DL BORDERLINE-HIGH RISK: 130- 159 MG/DL 110-129 MG/DL HIGH RISK: >160 MG/DL >130 MG/DL *CHILDREN AND ADOLESCENTS REPRESENTS INDIVIDUALA AGED 2-19 YEARS EXCLUSIVE. MCV 97.0 fL 80.0-97.0 [facility] ([facility] NORMAL RANGES Age WBC RBC HGB HCT MCV PLT Adult M 4.1-10.9 4.20-6.30 12.0-18.0 37.0-51.0 80-97 140-440 Adult F 4.1-10.9 4.04-5.48 12.0-18.0 37.0-51.0 80-97 140-440 0 -1 Yr 5.0-20.0 3.9-5.9 15-18 MV: 44 MV: 91 MV: 277 2-9 Yr. 6.0-17.0 3.8-5.4 11-13 MV: 37 MV: 78 MV: 300 10 Yrs. 5.0-13.0 3.8-5.4 12-15 MV: 39 MV: 80 MV: 250 NOTE: * FOR ADULT BLACK MALES AND FEMALES, NORMAL WBC IS 2.9-7.7 K/ML * FOR ADULT BLACK MALES AND FEMALES, NORMAL RBC,HGB, AND HCT IS 5% LESS SOURCE FOR DATA: [employer] 1800 OPERATION MANUAL( AUTOMATED BLOOD COUNTS AND DIFF.) APPENDIX B-3 CHRONIC KIDNEY DISEASE STAGING PER NKF: MALE GFR INTERPRETATION: 20-49 YRS: >60 mL/min Normal 50-59 YRS: >56 mL/min Normal 60-69 YRS: >49 mL/min Normal 70-79 YRS: >42 mL/min Normal 80 and above >35 mL/min Normal FEMALE GRF INTERPRETATION: 20-39 YRS: >60 mL/min Normal 40-49 YRS: >58 mL/min Normal 50-59 YRS: >51 mL/min Normal 60-69 YRS: >45 mL/min Normal 70-79 YRS: >39 mL/min Normal 80 and above >32 mL/min NormalCLASSIFICATION CHOLESTEROL FOR ADULTS CHILDREN/ADOLESCENTS* DESIRABLE: <200 MG/DL <170 MG/DL BORDER-LINE HIGH RISK: 200-239 MG/DL 170-199 MG/DL HIGH RISK: >240 MG/DL >200 MG/DL CLASS. FOR PRIMARY LDL CHOL PREVENTION: LDL CHOL-CHILD/ADOLESCENTS* DESIRABLE: <130 MG/DL <110 MG/DL BORDERLINE-HIGH RISK: 130- 159 MG/DL 110-129 MG/DL HIGH RISK: >160 MG/DL >130 MG/DL *CHILDREN AND ADOLESCENTS REPRESENTS INDIVIDUALA AGED 2-19 YEARS EXCLUSIVE. MCH 31.8 pg 26.0-32.0 [facility] ([facility] NORMAL RANGES Age WBC RBC HGB HCT MCV PLT Adult M 4.1-10.9 4.20-6.30 12.0-18.0 37.0-51.0 80-97 140-440 Adult F 4.1-10.9 4.04-5.48 12.0-18.0 37.0-51.0 80-97 140-440 0 -1 Yr 5.0-20.0 3.9-5.9 15-18 MV: 44 MV: 91 MV: 277 2-9 Yr. 6.0-17.0 3.8-5.4 11-13 MV: 37 MV: 78 MV: 300 10 Yrs. 5.0-13.0 3.8-5.4 12-15 MV: 39 MV: 80 MV: 250 NOTE: * FOR ADULT BLACK MALES AND FEMALES, NORMAL WBC IS 2.9-7.7 K/ML * FOR ADULT BLACK MALES AND FEMALES, NORMAL RBC,HGB, AND HCT IS 5% LESS SOURCE FOR DATA: [employer] 1800 OPERATION MANUAL( AUTOMATED BLOOD COUNTS AND DIFF.) APPENDIX B-3 CHRONIC KIDNEY DISEASE STAGING PER NKF: MALE GFR INTERPRETATION: 20-49 YRS: >60 mL/min Normal 50-59 YRS: >56 mL/min Normal 60-69 YRS: >49 mL/min Normal 70-79 YRS: >42 mL/min Normal 80 and above >35 mL/min Normal FEMALE GRF INTERPRETATION: 20-39 YRS: >60 mL/min Normal 40-49 YRS: >58 mL/min Normal 50-59 YRS: >51 mL/min Normal 60-69 YRS: >45 mL/min Normal 70-79 YRS: >39 mL/min Normal 80 and above >32 mL/min NormalCLASSIFICATION CHOLESTEROL FOR ADULTS CHILDREN/ADOLESCENTS* DESIRABLE: <200 MG/DL <170 MG/DL BORDER-LINE HIGH RISK: 200-239 MG/DL 170-199 MG/DL HIGH RISK: >240 MG/DL >200 MG/DL CLASS. FOR PRIMARY LDL CHOL PREVENTION: LDL CHOL-CHILD/ADOLESCENTS* DESIRABLE: <130 MG/DL <110 MG/DL BORDERLINE-HIGH RISK: 130- 159 MG/DL 110-129 MG/DL HIGH RISK: >160 MG/DL >130 MG/DL *CHILDREN AND ADOLESCENTS REPRESENTS INDIVIDUALA AGED 2-19 YEARS EXCLUSIVE. PLT 433 10E3/uL 140-440 [facility] ([facility] NORMAL RANGES Age WBC RBC HGB HCT MCV PLT Adult M 4.1-10.9 4.20-6.30 12.0-18.0 37.0-51.0 80-97 140-440 Adult F 4.1-10.9 4.04-5.48 12.0-18.0 37.0-51.0 80-97 140-440 0 -1 Yr 5.0-20.0 3.9-5.9 15-18 MV: 44 MV: 91 MV: 277 2-9 Yr. 6.0-17.0 3.8-5.4 11-13 MV: 37 MV: 78 MV: 300 10 Yrs. 5.0-13.0 3.8-5.4 12-15 MV: 39 MV: 80 MV: 250 NOTE: * FOR ADULT BLACK MALES AND FEMALES, NORMAL WBC IS 2.9-7.7 K/ML * FOR ADULT BLACK MALES AND FEMALES, NORMAL RBC,HGB, AND HCT IS 5% LESS SOURCE FOR DATA: [employer] 1800 OPERATION MANUAL( AUTOMATED BLOOD COUNTS AND DIFF.) APPENDIX B-3 CHRONIC KIDNEY DISEASE STAGING PER NKF: MALE GFR INTERPRETATION: 20-49 YRS: >60 mL/min Normal 50-59 YRS: >56 mL/min Normal 60-69 YRS: >49 mL/min Normal 70-79 YRS: >42 mL/min Normal 80 and above >35 mL/min Normal FEMALE GRF INTERPRETATION: 20-39 YRS: >60 mL/min Normal 40-49 YRS: >58 mL/min Normal 50-59 YRS: >51 mL/min Normal 60-69 YRS: >45 mL/min Normal 70-79 YRS: >39 mL/min Normal 80 and above >32 mL/min NormalCLASSIFICATION CHOLESTEROL FOR ADULTS CHILDREN/ADOLESCENTS* DESIRABLE: <200 MG/DL <170 MG/DL BORDER-LINE HIGH RISK: 200-239 MG/DL 170-199 MG/DL HIGH RISK: >240 MG/DL >200 MG/DL CLASS. FOR PRIMARY LDL CHOL PREVENTION: LDL CHOL-CHILD/ADOLESCENTS* DESIRABLE: <130 MG/DL <110 MG/DL BORDERLINE-HIGH RISK: 130- 159 MG/DL 110-129 MG/DL HIGH RISK: >160 MG/DL >130 MG/DL *CHILDREN AND ADOLESCENTS REPRESENTS INDIVIDUALA AGED 2-19 YEARS EXCLUSIVE. RDW-CV 13.9 % 11.5-14.5 [facility] NORMAL RANGES Age WBC RBC HGB HCT MCV PLT Adult M 4.1-10.9 4.20-6.30 12.0-18.0 37.0-51.0 80-97 140-440 Adult F 4.1-10.9 4.04-5.48 12.0-18.0 37.0-51.0 80-97 140-440 0 -1 Yr 5.0-20.0 3.9-5.9 15-18 MV: 44 MV: 91 MV: 277 2-9 Yr. 6.0-17.0 3.8-5.4 11-13 MV: 37 MV: 78 MV: 300 10 Yrs. 5.0-13.0 3.8-5.4 12-15 MV: 39 MV: 80 MV: 250 NOTE: * FOR ADULT BLACK MALES AND FEMALES, NORMAL WBC IS 2.9-7.7 K/ML * FOR ADULT BLACK MALES AND FEMALES, NORMAL RBC,HGB, AND HCT IS 5% LESS SOURCE FOR DATA: [employer] 1800 OPERATION MANUAL( AUTOMATED BLOOD COUNTS AND DIFF.) APPENDIX B-3 CHRONIC KIDNEY DISEASE STAGING PER NKF: MALE GFR INTERPRETATION: 20-49 YRS: >60 mL/min Normal 50-59 YRS: >56 mL/min Normal 60-69 YRS: >49 mL/min Normal 70-79 YRS: >42 mL/min Normal 80 and above >35 mL/min Normal FEMALE GRF INTERPRETATION: 20-39 YRS: >60 mL/min Normal 40-49 YRS: >58 mL/min Normal 50-59 YRS: >51 mL/min Normal 60-69 YRS: >45 mL/min Normal 70-79 YRS: >39 mL/min Normal 80 and above >32 mL/min NormalCLASSIFICATION CHOLESTEROL FOR ADULTS CHILDREN/ADOLESCENTS* DESIRABLE: <200 MG/DL <170 MG/DL BORDER-LINE HIGH RISK: 200-239 MG/DL 170-199 MG/DL HIGH RISK: >240 MG/DL >200 MG/DL CLASS. FOR PRIMARY LDL CHOL PREVENTION: LDL CHOL-CHILD/ADOLESCENTS* DESIRABLE: <130 MG/DL <110 MG/DL BORDERLINE-HIGH RISK: 130- 159 MG/DL 110-129 MG/DL HIGH RISK: >160 MG/DL >130 MG/DL *CHILDREN AND ADOLESCENTS REPRESENTS INDIVIDUALA AGED 2-19 YEARS EXCLUSIVE. Lym% 14.2 % 10.0-58.5 [facility] ([facility] NORMAL RANGES Age WBC RBC HGB HCT MCV PLT Adult M 4.1-10.9 4.20-6.30 12.0-18.0 37.0-51.0 80-97 140-440 Adult F 4.1-10.9 4.04-5.48 12.0-18.0 37.0-51.0 80-97 140-440 0 -1 Yr 5.0-20.0 3.9-5.9 15-18 MV: 44 MV: 91 MV: 277 2-9 Yr. 6.0-17.0 3.8-5.4 11-13 MV: 37 MV: 78 MV: 300 10 Yrs. 5.0-13.0 3.8-5.4 12-15 MV: 39 MV: 80 MV: 250 NOTE: * FOR ADULT BLACK MALES AND FEMALES, NORMAL WBC IS 2.9-7.7 K/ML * FOR ADULT BLACK MALES AND FEMALES, NORMAL RBC,HGB, AND HCT IS 5% LESS SOURCE FOR DATA: [employer] 1800 OPERATION MANUAL( AUTOMATED BLOOD COUNTS AND DIFF.) APPENDIX B-3 CHRONIC KIDNEY DISEASE STAGING PER NKF: MALE GFR INTERPRETATION: 20-49 YRS: >60 mL/min Normal 50-59 YRS: >56 mL/min Normal 60-69 YRS: >49 mL/min Normal 70-79 YRS: >42 mL/min Normal 80 and above >35 mL/min Normal FEMALE GRF INTERPRETATION: 20-39 YRS: >60 mL/min Normal 40-49 YRS: >58 mL/min Normal 50-59 YRS: >51 mL/min Normal 60-69 YRS: >45 mL/min Normal 70-79 YRS: >39 mL/min Normal 80 and above >32 mL/min NormalCLASSIFICATION CHOLESTEROL FOR ADULTS CHILDREN/ADOLESCENTS* DESIRABLE: <200 MG/DL <170 MG/DL BORDER-LINE HIGH RISK: 200-239 MG/DL 170-199 MG/DL HIGH RISK: >240 MG/DL >200 MG/DL CLASS. FOR PRIMARY LDL CHOL PREVENTION: LDL CHOL-CHILD/ADOLESCENTS* DESIRABLE: <130 MG/DL <110 MG/DL BORDERLINE-HIGH RISK: 130- 159 MG/DL 110-129 MG/DL HIGH RISK: >160 MG/DL >130 MG/DL *CHILDREN AND ADOLESCENTS REPRESENTS INDIVIDUALA AGED 2-19 YEARS EXCLUSIVE. Neut% 81.2 % 37.0-92.0 [facility] ([facility] NORMAL RANGES Age WBC RBC HGB HCT MCV PLT Adult M 4.1-10.9 4.20-6.30 12.0-18.0 37.0-51.0 80-97 140-440 Adult F 4.1-10.9 4.04-5.48 12.0-18.0 37.0-51.0 80-97 140-440 0 -1 Yr 5.0-20.0 3.9-5.9 15-18 MV: 44 MV: 91 MV: 277 2-9 Yr. 6.0-17.0 3.8-5.4 11-13 MV: 37 MV: 78 MV: 300 10 Yrs. 5.0-13.0 3.8-5.4 12-15 MV: 39 MV: 80 MV: 250 NOTE: * FOR ADULT BLACK MALES AND FEMALES, NORMAL WBC IS 2.9-7.7 K/ML * FOR ADULT BLACK MALES AND FEMALES, NORMAL RBC,HGB, AND HCT IS 5% LESS SOURCE FOR DATA: [employer] 1800 OPERATION MANUAL( AUTOMATED BLOOD COUNTS AND DIFF.) APPENDIX B-3 CHRONIC KIDNEY DISEASE STAGING PER NKF: MALE GFR INTERPRETATION: 20-49 YRS: >60 mL/min Normal 50-59 YRS: >56 mL/min Normal 60-69 YRS: >49 mL/min Normal 70-79 YRS: >42 mL/min Normal 80 and above >35 mL/min Normal FEMALE GRF INTERPRETATION: 20-39 YRS: >60 mL/min Normal 40-49 YRS: >58 mL/min Normal 50-59 YRS: >51 mL/min Normal 60-69 YRS: >45 mL/min Normal 70-79 YRS: >39 mL/min Normal 80 and above >32 mL/min NormalCLASSIFICATION CHOLESTEROL FOR ADULTS CHILDREN/ADOLESCENTS* DESIRABLE: <200 MG/DL <170 MG/DL BORDER-LINE HIGH RISK: 200-239 MG/DL 170-199 MG/DL HIGH RISK: >240 MG/DL >200 MG/DL CLASS. FOR PRIMARY LDL CHOL PREVENTION: LDL CHOL-CHILD/ADOLESCENTS* DESIRABLE: <130 MG/DL <110 MG/DL BORDERLINE-HIGH RISK: 130- 159 MG/DL 110-129 MG/DL HIGH RISK: >160 MG/DL >130 MG/DL *CHILDREN AND ADOLESCENTS REPRESENTS INDIVIDUALA AGED 2-19 YEARS EXCLUSIVE. MXD% 4.6 % 0.1-24.0 [facility] NORMAL RANGES Age WBC RBC HGB HCT MCV PLT Adult M 4.1-10.9 4.20-6.30 12.0-18.0 37.0-51.0 80-97 140-440 Adult F 4.1-10.9 4.04-5.48 12.0-18.0 37.0-51.0 80-97 140-440 0 -1 Yr 5.0-20.0 3.9-5.9 15-18 MV: 44 MV: 91 MV: 277 2-9 Yr. 6.0-17.0 3.8-5.4 11-13 MV: 37 MV: 78 MV: 300 10 Yrs. 5.0-13.0 3.8-5.4 12-15 MV: 39 MV: 80 MV: 250 NOTE: * FOR ADULT BLACK MALES AND FEMALES, NORMAL WBC IS 2.9-7.7 K/ML * FOR ADULT BLACK MALES AND FEMALES, NORMAL RBC,HGB, AND HCT IS 5% LESS SOURCE FOR DATA: [employer] 1800 OPERATION MANUAL( AUTOMATED BLOOD COUNTS AND DIFF.) APPENDIX B-3 CHRONIC KIDNEY DISEASE STAGING PER NKF: MALE GFR INTERPRETATION: 20-49 YRS: >60 mL/min Normal 50-59 YRS: >56 mL/min Normal 60-69 YRS: >49 mL/min Normal 70-79 YRS: >42 mL/min Normal 80 and above >35 mL/min Normal FEMALE GRF INTERPRETATION: 20-39 YRS: >60 mL/min Normal 40-49 YRS: >58 mL/min Normal 50-59 YRS: >51 mL/min Normal 60-69 YRS: >45 mL/min Normal 70-79 YRS: >39 mL/min Normal 80 and above >32 mL/min NormalCLASSIFICATION CHOLESTEROL FOR ADULTS CHILDREN/ADOLESCENTS* DESIRABLE: <200 MG/DL <170 MG/DL BORDER-LINE HIGH RISK: 200-239 MG/DL 170-199 MG/DL HIGH RISK: >240 MG/DL >200 MG/DL CLASS. FOR PRIMARY LDL CHOL PREVENTION: LDL CHOL-CHILD/ADOLESCENTS* DESIRABLE: <130 MG/DL <110 MG/DL BORDERLINE-HIGH RISK: 130- 159 MG/DL 110-129 MG/DL HIGH RISK: >160 MG/DL >130 MG/DL *CHILDREN AND ADOLESCENTS REPRESENTS INDIVIDUALA AGED 2-19 YEARS EXCLUSIVE. Neut# 10.3 % 2.0-7.8 Above high normal [facility] ([facility] NORMAL RANGES Age WBC RBC HGB HCT MCV PLT Adult M 4.1-10.9 4.20-6.30 12.0-18.0 37.0-51.0 80-97 140-440 Adult F 4.1-10.9 4.04-5.48 12.0-18.0 37.0-51.0 80-97 140-440 0 -1 Yr 5.0-20.0 3.9-5.9 15-18 MV: 44 MV: 91 MV: 277 2-9 Yr. 6.0-17.0 3.8-5.4 11-13 MV: 37 MV: 78 MV: 300 10 Yrs. 5.0-13.0 3.8-5.4 12-15 MV: 39 MV: 80 MV: 250 NOTE: * FOR ADULT BLACK MALES AND FEMALES, NORMAL WBC IS 2.9-7.7 K/ML * FOR ADULT BLACK MALES AND FEMALES, NORMAL RBC,HGB, AND HCT IS 5% LESS SOURCE FOR DATA: [employer] 1800 OPERATION MANUAL( AUTOMATED BLOOD COUNTS AND DIFF.) APPENDIX B-3 CHRONIC KIDNEY DISEASE STAGING PER NKF: MALE GFR INTERPRETATION: 20-49 YRS: >60 mL/min Normal 50-59 YRS: >56 mL/min Normal 60-69 YRS: >49 mL/min Normal 70-79 YRS: >42 mL/min Normal 80 and above >35 mL/min Normal FEMALE GRF INTERPRETATION: 20-39 YRS: >60 mL/min Normal 40-49 YRS: >58 mL/min Normal 50-59 YRS: >51 mL/min Normal 60-69 YRS: >45 mL/min Normal 70-79 YRS: >39 mL/min Normal 80 and above >32 mL/min NormalCLASSIFICATION CHOLESTEROL FOR ADULTS CHILDREN/ADOLESCENTS* DESIRABLE: <200 MG/DL <170 MG/DL BORDER-LINE HIGH RISK: 200-239 MG/DL 170-199 MG/DL HIGH RISK: >240 MG/DL >200 MG/DL CLASS. FOR PRIMARY LDL CHOL PREVENTION: LDL CHOL-CHILD/ADOLESCENTS* DESIRABLE: <130 MG/DL <110 MG/DL BORDERLINE-HIGH RISK: 130- 159 MG/DL 110-129 MG/DL HIGH RISK: >160 MG/DL >130 MG/DL *CHILDREN AND ADOLESCENTS REPRESENTS INDIVIDUALA AGED 2-19 YEARS EXCLUSIVE. Lym# 1.8 10E3/uL 0.6-4.1 [facility] ([facility] NORMAL RANGES Age WBC RBC HGB HCT MCV PLT Adult M 4.1-10.9 4.20-6.30 12.0-18.0 37.0-51.0 80-97 140-440 Adult F 4.1-10.9 4.04-5.48 12.0-18.0 37.0-51.0 80-97 140-440 0 -1 Yr 5.0-20.0 3.9-5.9 15-18 MV: 44 MV: 91 MV: 277 2-9 Yr. 6.0-17.0 3.8-5.4 11-13 MV: 37 MV: 78 MV: 300 10 Yrs. 5.0-13.0 3.8-5.4 12-15 MV: 39 MV: 80 MV: 250 NOTE: * FOR ADULT BLACK MALES AND FEMALES, NORMAL WBC IS 2.9-7.7 K/ML * FOR ADULT BLACK MALES AND FEMALES, NORMAL RBC,HGB, AND HCT IS 5% LESS SOURCE FOR DATA: [employer] 1800 OPERATION MANUAL( AUTOMATED BLOOD COUNTS AND DIFF.) APPENDIX B-3 CHRONIC KIDNEY DISEASE STAGING PER NKF: MALE GFR INTERPRETATION: 20-49 YRS: >60 mL/min Normal 50-59 YRS: >56 mL/min Normal 60-69 YRS: >49 mL/min Normal 70-79 YRS: >42 mL/min Normal 80 and above >35 mL/min Normal FEMALE GRF INTERPRETATION: 20-39 YRS: >60 mL/min Normal 40-49 YRS: >58 mL/min Normal 50-59 YRS: >51 mL/min Normal 60-69 YRS: >45 mL/min Normal 70-79 YRS: >39 mL/min Normal 80 and above >32 mL/min NormalCLASSIFICATION CHOLESTEROL FOR ADULTS CHILDREN/ADOLESCENTS* DESIRABLE: <200 MG/DL <170 MG/DL BORDER-LINE HIGH RISK: 200-239 MG/DL 170-199 MG/DL HIGH RISK: >240 MG/DL >200 MG/DL CLASS. FOR PRIMARY LDL CHOL PREVENTION: LDL CHOL-CHILD/ADOLESCENTS* DESIRABLE: <130 MG/DL <110 MG/DL BORDERLINE-HIGH RISK: 130- 159 MG/DL 110-129 MG/DL HIGH RISK: >160 MG/DL >130 MG/DL *CHILDREN AND ADOLESCENTS REPRESENTS INDIVIDUALA AGED 2-19 YEARS EXCLUSIVE. MPV 10.6 fL 9.0-13.0 [facility] NORMAL RANGES Age WBC RBC HGB HCT MCV PLT Adult M 4.1-10.9 4.20-6.30 12.0-18.0 37.0-51.0 80-97 140-440 Adult F 4.1-10.9 4.04-5.48 12.0-18.0 37.0-51.0 80-97 140-440 0 -1 Yr 5.0-20.0 3.9-5.9 15-18 MV: 44 MV: 91 MV: 277 2-9 Yr. 6.0-17.0 3.8-5.4 11-13 MV: 37 MV: 78 MV: 300 10 Yrs. 5.0-13.0 3.8-5.4 12-15 MV: 39 MV: 80 MV: 250 NOTE: * FOR ADULT BLACK MALES AND FEMALES, NORMAL WBC IS 2.9-7.7 K/ML * FOR ADULT BLACK MALES AND FEMALES, NORMAL RBC,HGB, AND HCT IS 5% LESS SOURCE FOR DATA: [employer] 1800 OPERATION MANUAL( AUTOMATED BLOOD COUNTS AND DIFF.) APPENDIX B-3 CHRONIC KIDNEY DISEASE STAGING PER NKF: MALE GFR INTERPRETATION: 20-49 YRS: >60 mL/min Normal 50-59 YRS: >56 mL/min Normal 60-69 YRS: >49 mL/min Normal 70-79 YRS: >42 mL/min Normal 80 and above >35 mL/min Normal FEMALE GRF INTERPRETATION: 20-39 YRS: >60 mL/min Normal 40-49 YRS: >58 mL/min Normal 50-59 YRS: >51 mL/min Normal 60-69 YRS: >45 mL/min Normal 70-79 YRS: >39 mL/min Normal 80 and above >32 mL/min NormalCLASSIFICATION CHOLESTEROL FOR ADULTS CHILDREN/ADOLESCENTS* DESIRABLE: <200 MG/DL <170 MG/DL BORDER-LINE HIGH RISK: 200-239 MG/DL 170-199 MG/DL HIGH RISK: >240 MG/DL >200 MG/DL CLASS. FOR PRIMARY LDL CHOL PREVENTION: LDL CHOL-CHILD/ADOLESCENTS* DESIRABLE: <130 MG/DL <110 MG/DL BORDERLINE-HIGH RISK: 130- 159 MG/DL 110-129 MG/DL HIGH RISK: >160 MG/DL >130 MG/DL *CHILDREN AND ADOLESCENTS REPRESENTS INDIVIDUALA AGED 2-19 YEARS EXCLUSIVE. MXD# 0.6 10E3/uL 0.0-1.8 [facility] ([facility] NORMAL RANGES Age WBC RBC HGB HCT MCV PLT Adult M 4.1-10.9 4.20-6.30 12.0-18.0 37.0-51.0 80-97 140-440 Adult F 4.1-10.9 4.04-5.48 12.0-18.0 37.0-51.0 80-97 140-440 0 -1 Yr 5.0-20.0 3.9-5.9 15-18 MV: 44 MV: 91 MV: 277 2-9 Yr. 6.0-17.0 3.8-5.4 11-13 MV: 37 MV: 78 MV: 300 10 Yrs. 5.0-13.0 3.8-5.4 12-15 MV: 39 MV: 80 MV: 250 NOTE: * FOR ADULT BLACK MALES AND FEMALES, NORMAL WBC IS 2.9-7.7 K/ML * FOR ADULT BLACK MALES AND FEMALES, NORMAL RBC,HGB, AND HCT IS 5% LESS SOURCE FOR DATA: [employer] 1800 OPERATION MANUAL( AUTOMATED BLOOD COUNTS AND DIFF.) APPENDIX B-3 CHRONIC KIDNEY DISEASE STAGING PER NKF: MALE GFR INTERPRETATION: 20-49 YRS: >60 mL/min Normal 50-59 YRS: >56 mL/min Normal 60-69 YRS: >49 mL/min Normal 70-79 YRS: >42 mL/min Normal 80 and above >35 mL/min Normal FEMALE GRF INTERPRETATION: 20-39 YRS: >60 mL/min Normal 40-49 YRS: >58 mL/min Normal 50-59 YRS: >51 mL/min Normal 60-69 YRS: >45 mL/min Normal 70-79 YRS: >39 mL/min Normal 80 and above >32 mL/min NormalCLASSIFICATION CHOLESTEROL FOR ADULTS CHILDREN/ADOLESCENTS* DESIRABLE: <200 MG/DL <170 MG/DL BORDER-LINE HIGH RISK: 200-239 MG/DL 170-199 MG/DL HIGH RISK: >240 MG/DL >200 MG/DL CLASS. FOR PRIMARY LDL CHOL PREVENTION: LDL CHOL-CHILD/ADOLESCENTS* DESIRABLE: <130 MG/DL <110 MG/DL BORDERLINE-HIGH RISK: 130- 159 MG/DL 110-129 MG/DL HIGH RISK: >160 MG/DL >130 MG/DL *CHILDREN AND ADOLESCENTS REPRESENTS INDIVIDUALA AGED 2-19 YEARS EXCLUSIVE. ID Date Data Source [id number] 06/12/2020 09:58:00 AM EST [facility] ([facility] Name Value Range Interpretation Code Description Data Babita rce(s) Supporting Document(s) Creatinine For GFR 1.05 mg/dL 0.55-1.30 Normal (applies to non -numeric results) [facility] ([facility] Glomerular Filtration Rate 55.8 Normal (applies to n on-numeric results) [facility] ([facility] <content>Units are mL/min/1.73 m2</content>
<content></content>
<content>Chronic Kidney Disease Staging per NKF:</content>
<content></content>
<content>Stage I & II GFR >=60 Normal to Mildly Decreased</content>
<content>Stage III GFR 30- 59 Moderately Decreased</content>
<content>Stage IV GFR 15-29 Severely Decreased</content>
<content>Stage V GFR <15 Very Little GFR Left</content>
<content>ESRD GFR <15 on INK MAKER</content>
<content></content> ID Date Data Source [id number] 06/12/2020 09:58:00 AM EST [facility] ([facility] Name Value Range Interpretation Code Description Data Babiat rce(s) Supporting Document(s) Urea nitrogen [Mass/volume] in Serum or Plasma 11 mg/dL 7 -18 Normal (applies to non-numeric results) [facility] ([facility]) ID Date Data Source [id number] 02/11/2020 04:21:00 PM EDT [facility] ([facility] Name Value Range Interpretation Code Description Data Babita rce(s) Supporting Document(s) Appearance of Urine Laboratory test result [facility] ([facility] Specific [place] 1.020 1.00-1.03 [facility] ([facility] Color Urine Laboratory test result M [facility] ([facility] Bilirubin.total [Presence] in Urine by Test strip Laboratory test res ult [facility] ([facility] PH Urine 6.0 5.0-8.0 [facility] ([facility] Glucose Urine Laboratory test result [facility] ([facility] Blood Urine Laboratory test result M [facility] ([facility] Ketones Laboratory test result [facility] ([facility] Protein Urine Laboratory test result [facility] ([facility] Nitrite Laboratory test result [facility] ([facility] Leukocytes Laboratory test result ME [facility] ([facility] Urobilinogen 0.2 EU/dl 0.2-1.0 [facility] ID Date Data Source [id number] 02/11/2020 03:35:00 PM EDT [facility] ([facility] Name Value Range Interpretation Code Description Data Babita rce(s) Supporting Document(s) Thyrotropin [Units/volume] in Serum or Plasma 0.477 ulU/mL 0. 60-4.8 Below low normal [facility] ([facility] ) ID Date Data Source [id number] 02/11/2020 03:35:00 PM EDT [facility] ([facility] Name Value Range Interpretation Code Description Data Babita rce(s) Supporting Document(s) Creatine kinase [Enzymatic activity/volume] in Serum or Plasma 58 U /L 26-192 [facility] ([facility] NORMAL RANGES Age WBC RBC HGB HCT MCV PLT Adult M 4.1-10.9 4.20-6.30 12.0-18.0 37.0-51.0 80-97 140-440 Adult F 4.1-10.9 4.04-5.48 12.0-18.0 37.0-51.0 80-97 140-440 0 -1 Yr 5.0-20.0 3.9-5.9 15-18 MV: 44 MV: 91 MV: 277 2-9 Yr. 6.0-17.0 3.8-5.4 11-13 MV: 37 MV: 78 MV: 300 10 Yrs. 5.0-13.0 3.8-5.4 12-15 MV: 39 MV: 80 MV: 250 NOTE: * FOR ADULT BLACK MALES AND FEMALES, NORMAL WBC IS 2.9-7.7 K/ML * FOR ADULT BLACK MALES AND FEMALES, NORMAL RBC,HGB, AND HCT IS 5% LESS SOURCE FOR DATA: Hamilton Thorne 1800 OPERATION MANUAL( AUTOMATED BLOOD COUNTS AND DIFF.) APPENDIX B-3 CHRONIC KIDNEY DISEASE STAGING PER NKF: MALE GFR INTERPRETATION: 20-49 YRS: >60 mL/min Normal 50-59 YRS: >56 mL/min Normal 60-69 YRS: >49 mL/min Normal 70-79 YRS: >42 mL/min Normal 80 and above >35 mL/min Normal FEMALE GRF INTERPRETATION: 20-39 YRS: >60 mL/min Normal 40-49 YRS: >58 mL/min Normal 50-59 YRS: >51 mL/min Normal 60-69 YRS: >45 mL/min Normal 70-79 YRS: >39 mL/min Normal 80 and above >32 mL/min NormalCLASSIFICATION CHOLESTEROL FOR ADULTS CHILDREN/ADOLESCENTS* DESIRABLE: <200 MG/DL <170 MG/DL BORDER-LINE HIGH RISK: 200-239 MG/DL 170-199 MG/DL HIGH RISK: >240 MG/DL >200 MG/DL CLASS. FOR PRIMARY LDL CHOL PREVENTION: LDL CHOL-CHILD/ADOLESCENTS* DESIRABLE: <130 MG/DL <110 MG/DL BORDERLINE-HIGH RISK: 130-159 MG/DL 110-129 MG/DL HIGH RISK: >160 MG/DL >130 MG/DL *CHILDREN AND ADOLESCENTS REPRESENTS INDIVIDUALA AGED 2-19 YEARS EXCLUSIVE.NORMAL RANGES Age WBC RBC HGB HCT MCV PLT Adult M 4.1-10.9 4.20-6.30 12.0-18.0 37.0-51.0 80-97 140-440 Adult F 4.1-10.9 4.04-5.48 12.0-18.0 37.0-51.0 80-97 140-440 0- 1 Yr 5.0-20.0 3.9-5.9 15-18 MV: 44 MV: 91 MV: 277 2-9 Yr. 6.0-17.0 3.8-5.4 11-13 MV: 37 MV: 78 MV: 300 10 Yrs. 5.0-13.0 3.8-5.4 12-15 MV: 39 MV: 80 MV: 250 NOTE: * FOR ADULT BLACK MALES AND FEMALES, NORMAL WBC IS 2.9-7.7 K/ML * FOR ADULT BLACK MALES AND FEMALES, NORMAL RBC,HGB, AND HCT IS 5% LESS SOURCE FOR DATA: Hamilton Thorne 1800 OPERATION MANUAL( AUTOMATED BLOOD COUNTS AND DIFF.) APPENDIX B-3 ID Date Data Source [id number] 02/11/2020 03:35:00 PM EDT [facility] ([facility] Name Value Range Interpretation Code Description Data Babita rce(s) Supporting Document(s) Trig 211 mg/dL 40-200 Above high normal [facility] ([facility] NORMAL RANGES Age WBC RBC HGB HCT MCV PLT Adult M 4.1-10.9 4.20-6.30 12.0-18.0 37.0-51.0 80-97 140-440 Adult F 4.1-10.9 4.04-5.48 12.0-18.0 37.0-51.0 80-97 140-440 0 -1 Yr 5.0-20.0 3.9-5.9 15-18 MV: 44 MV: 91 MV: 277 2-9 Yr. 6.0-17.0 3.8-5.4 11-13 MV: 37 MV: 78 MV: 300 10 Yrs. 5.0-13.0 3.8-5.4 12-15 MV: 39 MV: 80 MV: 250 NOTE: * FOR ADULT BLACK MALES AND FEMALES, NORMAL WBC IS 2.9-7.7 K/ML * FOR ADULT BLACK MALES AND FEMALES, NORMAL RBC,HGB, AND HCT IS 5% LESS SOURCE FOR DATA: eVigilo DYN 1800 OPERATION MANUAL( AUTOMATED BLOOD COUNTS AND DIFF.) APPENDIX B-3 CHRONIC KIDNEY DISEASE STAGING PER NKF: MALE GFR INTERPRETATION: 20-49 YRS: >60 mL/min Normal 50-59 YRS: >56 mL/min Normal 60-69 YRS: >49 mL/min Normal 70-79 YRS: >42 mL/min Normal 80 and above >35 mL/min Normal FEMALE GRF INTERPRETATION: 20-39 YRS: >60 mL/min Normal 40-49 YRS: >58 mL/min Normal 50-59 YRS: >51 mL/min Normal 60-69 YRS: >45 mL/min Normal 70-79 YRS: >39 mL/min Normal 80 and above >32 mL/min NormalCLASSIFICATION CHOLESTEROL FOR ADULTS CHILDREN/ADOLESCENTS* DESIRABLE: <200 MG/DL <170 MG/DL BORDER-LINE HIGH RISK: 200-239 MG/DL 170-199 MG/DL HIGH RISK: >240 MG/DL >200 MG/DL CLASS. FOR PRIMARY LDL CHOL PREVENTION: LDL CHOL-CHILD/ADOLESCENTS* DESIRABLE: <130 MG/DL <110 MG/DL BORDERLINE-HIGH RISK: 130-159 MG/DL 110-129 MG/DL HIGH RISK: >160 MG/DL >130 MG/DL *CHILDREN AND ADOLESCENTS REPRESENTS INDIVIDUALA AGED 2-19 YEARS EXCLUSIVE.NORMAL RANGES Age WBC RBC HGB HCT MCV PLT Adult M 4.1-10.9 4.20-6.30 12.0-18.0 37.0-51.0 80-97 140-440 Adult F 4.1-10.9 4.04-5.48 12.0-18.0 37.0-51.0 140440 0- 1 Yr 5.0-20.0 3.9-5.9 15-18 MV: 44 MV: 91 MV: 277 2-9 Yr. 6.0-17.0 3.8-5.4 11-13 MV: 37 MV: 78 MV: 300 10 Yrs. 5.0-13.0 3.8-5.4 12-15 MV: 39 MV: 80 MV: 250 NOTE: * FOR ADULT BLACK MALES AND FEMALES, NORMAL WBC IS 2.9-7.7 K/ML * FOR ADULT BLACK MALES AND FEMALES, NORMAL RBC,HGB, AND HCT IS 5% LESS SOURCE FOR DATA: Hamilton Thorne 1800 OPERATION MANUAL( AUTOMATED BLOOD COUNTS AND DIFF.) APPENDIX B-3 Chol 155 mg/dL 0-200 [facility] ([facility] NORMAL RANGES Age WBC RBC HGB HCT MCV PLT Adult M 4.1-10.9 4.20-6.30 12.0-18.0 37.0-51.0 140440 Adult F 4.1-10.9 4.04-5.48 12.0-18.0 37.0-51.0 140440 0 -1 Yr 5.0-20.0 3.9-5.9 15-18 MV: 44 MV: 91 MV: 277 2-9 Yr. 6.0-17.0 3.8-5.4 11-13 MV: 37 MV: 78 MV: 300 10 Yrs. 5.0-13.0 3.8-5.4 12-15 MV: 39 MV: 80 MV: 250 NOTE: * FOR ADULT BLACK MALES AND FEMALES, NORMAL WBC IS 2.9-7.7 K/ML * FOR ADULT BLACK MALES AND FEMALES, NORMAL RBC,HGB, AND HCT IS 5% LESS SOURCE FOR DATA: eVigilo DYN 1800 OPERATION MANUAL( AUTOMATED BLOOD COUNTS AND DIFF.) APPENDIX B-3 CHRONIC KIDNEY DISEASE STAGING PER NKF: MALE GFR INTERPRETATION: 20-49 YRS: >60 mL/min Normal 50-59 YRS: >56 mL/min Normal 60-69 YRS: >49 mL/min Normal 70-79 YRS: >42 mL/min Normal 80 and above >35 mL/min Normal FEMALE GRF INTERPRETATION: 20-39 YRS: >60 mL/min Normal 40-49 YRS: >58 mL/min Normal 50-59 YRS: >51 mL/min Normal 60-69 YRS: >45 mL/min Normal 70-79 YRS: >39 mL/min Normal 80 and above >32 mL/min NormalCLASSIFICATION CHOLESTEROL FOR ADULTS CHILDREN/ADOLESCENTS* DESIRABLE: <200 MG/DL <170 MG/DL BORDER-LINE HIGH RISK: 200-239 MG/DL 170-199 MG/DL HIGH RISK: >240 MG/DL >200 MG/DL CLASS. FOR PRIMARY LDL CHOL PREVENTION: LDL CHOL-CHILD/ADOLESCENTS* DESIRABLE: <130 MG/DL <110 MG/DL BORDERLINE-HIGH RISK: 130-159 MG/DL 110-129 MG/DL HIGH RISK: >160 MG/DL >130 MG/DL *CHILDREN AND ADOLESCENTS REPRESENTS INDIVIDUALA AGED 2-19 YEARS EXCLUSIVE.NORMAL RANGES Age WBC RBC HGB HCT MCV PLT Adult M 4.1-10.9 4.20-6.30 12.0-18.0 37.0-51.0 80- 140-440 Adult F 4.1-10.9 4.04-5.48 12.0-18.0 37.0-51.0 80 140-440 0- 1 Yr 5.0-20.0 3.9-5.9 15-18 MV: 44 MV: 91 MV: 277 2-9 Yr. 6.0-17.0 3.8-5.4 11-13 MV: 37 MV: 78 MV: 300 10 Yrs. 5.0-13.0 3.8-5.4 12-15 MV: 39 MV: 80 MV: 250 NOTE: * FOR ADULT BLACK MALES AND FEMALES, NORMAL WBC IS 2.9-7.7 K/ML * FOR ADULT BLACK MALES AND FEMALES, NORMAL RBC,HGB, AND HCT IS 5% LESS SOURCE FOR DATA: Hamilton Thorne 1800 OPERATION MANUAL( AUTOMATED BLOOD COUNTS AND DIFF.) APPENDIX B-3 Cho/HDL Ratio 2.3 CALC [facility] ([facility] NORMAL RANGES Age WBC RBC HGB HCT MCV PLT Adult M 4.1-10.9 4.20-6.30 12.0-18.0 37.0-51.0 80 140-440 Adult F 4.1-10.9 4.04-5.48 12.0-18.0 37.0-51.0 80-97 140-440 0 -1 Yr 5.0-20.0 3.9-5.9 15-18 MV: 44 MV: 91 MV: 277 2-9 Yr. 6.0-17.0 3.8-5.4 11-13 MV: 37 MV: 78 MV: 300 10 Yrs. 5.0-13.0 3.8-5.4 12-15 MV: 39 MV: 80 MV: 250 NOTE: * FOR ADULT BLACK MALES AND FEMALES, NORMAL WBC IS 2.9-7.7 K/ML * FOR ADULT BLACK MALES AND FEMALES, NORMAL RBC,HGB, AND HCT IS 5% LESS SOURCE FOR DATA: Hamilton Thorne 1800 OPERATION MANUAL( AUTOMATED BLOOD COUNTS AND DIFF.) APPENDIX B-3 CHRONIC KIDNEY DISEASE STAGING PER NKF: MALE GFR INTERPRETATION: 20-49 YRS: >60 mL/min Normal 50-59 YRS: >56 mL/min Normal 60-69 YRS: >49 mL/min Normal 70-79 YRS: >42 mL/min Normal 80 and above >35 mL/min Normal FEMALE GRF INTERPRETATION: 20-39 YRS: >60 mL/min Normal 40-49 YRS: >58 mL/min Normal 50-59 YRS: >51 mL/min Normal 60-69 YRS: >45 mL/min Normal 70-79 YRS: >39 mL/min Normal 80 and above >32 mL/min NormalCLASSIFICATION CHOLESTEROL FOR ADULTS CHILDREN/ADOLESCENTS* DESIRABLE: <200 MG/DL <170 MG/DL BORDER-LINE HIGH RISK: 200-239 MG/DL 170-199 MG/DL HIGH RISK: >240 MG/DL >200 MG/DL CLASS. FOR PRIMARY LDL CHOL PREVENTION: LDL CHOL-CHILD/ADOLESCENTS* DESIRABLE: <130 MG/DL <110 MG/DL BORDERLINE-HIGH RISK: 130-159 MG/DL 110-129 MG/DL HIGH RISK: >160 MG/DL >130 MG/DL *CHILDREN AND ADOLESCENTS REPRESENTS INDIVIDUALA AGED 2-19 YEARS EXCLUSIVE.NORMAL RANGES Age WBC RBC HGB HCT MCV PLT Adult M 4.1-10.9 4.20-6.30 12.0-18.0 37.0-51.0 80-97 140-440 Adult F 4.1-10.9 4.04-5.48 12.0-18.0 37.0-51.0 80-97 140-440 0- 1 Yr 5.0-20.0 3.9-5.9 15-18 MV: 44 MV: 91 MV: 277 2-9 Yr. 6.0-17.0 3.8-5.4 11-13 MV: 37 MV: 78 MV: 300 10 Yrs. 5.0-13.0 3.8-5.4 12-15 MV: 39 MV: 80 MV: 250 NOTE: * FOR ADULT BLACK MALES AND FEMALES, NORMAL WBC IS 2.9-7.7 K/ML * FOR ADULT BLACK MALES AND FEMALES, NORMAL RBC,HGB, AND HCT IS 5% LESS SOURCE FOR DATA: Hamilton Thorne 1800 OPERATION MANUAL( AUTOMATED BLOOD COUNTS AND DIFF.) APPENDIX B-3 LDL_C 44 Calc 75-129 Below low normal [facility] ( [facility] NORMAL RANGES Age WBC RBC HGB HCT MCV PLT Adult M 4.1-10.9 4.20-6.30 12.0-18.0 37.0-51.0 80-97 140-440 Adult F 4.1-10.9 4.04-5.48 12.0-18.0 37.0-51.0 80-97 140-440 0 -1 Yr 5.0-20.0 3.9-5.9 15-18 MV: 44 MV: 91 MV: 277 2-9 Yr. 6.0-17.0 3.8-5.4 11-13 MV: 37 MV: 78 MV: 300 10 Yrs. 5.0-13.0 3.8-5.4 12-15 MV: 39 MV: 80 MV: 250 NOTE: * FOR ADULT BLACK MALES AND FEMALES, NORMAL WBC IS 2.9-7.7 K/ML * FOR ADULT BLACK MALES AND FEMALES, NORMAL RBC,HGB, AND HCT IS 5% LESS SOURCE FOR DATA: Hamilton Thorne 1800 OPERATION MANUAL( AUTOMATED BLOOD COUNTS AND DIFF.) APPENDIX B-3 CHRONIC KIDNEY DISEASE STAGING PER NKF: MALE GFR INTERPRETATION: 20-49 YRS: >60 mL/min Normal 50-59 YRS: >56 mL/min Normal 60-69 YRS: >49 mL/min Normal 70-79 YRS: >42 mL/min Normal 80 and above >35 mL/min Normal FEMALE GRF INTERPRETATION: 20-39 YRS: >60 mL/min Normal 40-49 YRS: >58 mL/min Normal 50-59 YRS: >51 mL/min Normal 60-69 YRS: >45 mL/min Normal 70-79 YRS: >39 mL/min Normal 80 and above >32 mL/min NormalCLASSIFICATION CHOLESTEROL FOR ADULTS CHILDREN/ADOLESCENTS* DESIRABLE: <200 MG/DL <170 MG/DL BORDER-LINE HIGH RISK: 200-239 MG/DL 170-199 MG/DL HIGH RISK: >240 MG/DL >200 MG/DL CLASS. FOR PRIMARY LDL CHOL PREVENTION: LDL CHOL-CHILD/ADOLESCENTS* DESIRABLE: <130 MG/DL <110 MG/DL BORDERLINE-HIGH RISK: 130-159 MG/DL 110-129 MG/DL HIGH RISK: >160 MG/DL >130 MG/DL *CHILDREN AND ADOLESCENTS REPRESENTS INDIVIDUALA AGED 2-19 YEARS EXCLUSIVE.NORMAL RANGES Age WBC RBC HGB HCT MCV PLT Adult M 4.1-10.9 4.20-6.30 12.0-18.0 37.0-51.0 80-97 140-440 Adult F 4.1-10.9 4.04-5.48 12.0-18.0 37.0-51.0 80-97 140-440 0- 1 Yr 5.0-20.0 3.9-5.9 15-18 MV: 44 MV: 91 MV: 277 2-9 Yr. 6.0-17.0 3.8-5.4 11-13 MV: 37 MV: 78 MV: 300 10 Yrs. 5.0-13.0 3.8-5.4 12-15 MV: 39 MV: 80 MV: 250 NOTE: * FOR ADULT BLACK MALES AND FEMALES, NORMAL WBC IS 2.9-7.7 K/ML * FOR ADULT BLACK MALES AND FEMALES, NORMAL RBC,HGB, AND HCT IS 5% LESS SOURCE FOR DATA: Hamilton Thorne 1800 OPERATION MANUAL( AUTOMATED BLOOD COUNTS AND DIFF.) APPENDIX B-3 Cholesterol in HDL [Mass/volume] in Serum or Plasma 68 mg/dL 45-65 Above high normal [facility] ([facility] NORMAL RANGES Age WBC RBC HGB HCT MCV PLT Adult M 4.1-10.9 4.20-6.30 12.0-18.0 37.0-51.0 80-97 140-440 Adult F 4.1-10.9 4.04-5.48 12.0-18.0 37.0-51.0 80-97 140-440 0 -1 Yr 5.0-20.0 3.9-5.9 15-18 MV: 44 MV: 91 MV: 277 2-9 Yr. 6.0-17.0 3.8-5.4 11-13 MV: 37 MV: 78 MV: 300 10 Yrs. 5.0-13.0 3.8-5.4 12-15 MV: 39 MV: 80 MV: 250 NOTE: * FOR ADULT BLACK MALES AND FEMALES, NORMAL WBC IS 2.9-7.7 K/ML * FOR ADULT BLACK MALES AND FEMALES, NORMAL RBC,HGB, AND HCT IS 5% LESS SOURCE FOR DATA: Hamilton Thorne 1800 OPERATION MANUAL( AUTOMATED BLOOD COUNTS AND DIFF.) APPENDIX B-3 CHRONIC KIDNEY DISEASE STAGING PER NKF: MALE GFR INTERPRETATION: 20-49 YRS: >60 mL/min Normal 50-59 YRS: >56 mL/min Normal 60-69 YRS: >49 mL/min Normal 70-79 YRS: >42 mL/min Normal 80 and above >35 mL/min Normal FEMALE GRF INTERPRETATION: 20-39 YRS: >60 mL/min Normal 40-49 YRS: >58 mL/min Normal 50-59 YRS: >51 mL/min Normal 60-69 YRS: >45 mL/min Normal 70-79 YRS: >39 mL/min Normal 80 and above >32 mL/min NormalCLASSIFICATION CHOLESTEROL FOR ADULTS CHILDREN/ADOLESCENTS* DESIRABLE: <200 MG/DL <170 MG/DL BORDER-LINE HIGH RISK: 200-239 MG/DL 170-199 MG/DL HIGH RISK: >240 MG/DL >200 MG/DL CLASS. FOR PRIMARY LDL CHOL PREVENTION: LDL CHOL-CHILD/ADOLESCENTS* DESIRABLE: <130 MG/DL <110 MG/DL BORDERLINE-HIGH RISK: 130- 159 MG/DL 110-129 MG/DL HIGH RISK: >160 MG/DL >130 MG/DL *CHILDREN AND ADOLESCENTS REPRESENTS INDIVIDUALA AGED 2-19 YEARS EXCLUSIVE.NORMAL RANGES Age WBC RBC HGB HCT MCV PLT Adult M 4.1-10.9 4.20-6.30 12.0-18.0 37.0-51.0 80-97 140-440 Adult F 4.1-10.9 4.04-5.48 12.0-18.0 37.0-51.0 80-97 140-440 0- 1 Yr 5.0-20.0 3.9-5.9 15-18 MV: 44 MV: 91 MV: 277 2-9 Yr. 6.0-17.0 3.8-5.4 11-13 MV: 37 MV: 78 MV: 300 10 Yrs. 5.0-13.0 3.8-5.4 12-15 MV: 39 MV: 80 MV: 250 NOTE: * FOR ADULT BLACK MALES AND FEMALES, NORMAL WBC IS 2.9-7.7 K/ML * FOR ADULT BLACK MALES AND FEMALES, NORMAL RBC,HGB, AND HCT IS 5% LESS SOURCE FOR DATA: Hamilton Thorne 1800 OPERATION MANUAL( AUTOMATED BLOOD COUNTS AND DIFF.) APPENDIX B-3 ID Date Data Source [id number] 02/11/2020 03:35:00 PM EDT [facility] ([facility] Name Value Range Interpretation Code Description Data Babita rce(s) Supporting Document(s) Glu 94 mg/dL 70-110 [facility] NORMAL RANGES Age WBC RBC HGB HCT MCV PLT Adult M 4.1-10.9 4.20-6.30 12.0-18.0 37.0-51.0 80-97 140-440 Adult F 4.1-10.9 4.04-5.48 12.0-18.0 37.0-51.0 80-97 140-440 0 -1 Yr 5.0-20.0 3.9-5.9 15-18 MV: 44 MV: 91 MV: 277 2-9 Yr. 6.0-17.0 3.8-5.4 11-13 MV: 37 MV: 78 MV: 300 10 Yrs. 5.0-13.0 3.8-5.4 12-15 MV: 39 MV: 80 MV: 250 NOTE: * FOR ADULT BLACK MALES AND FEMALES, NORMAL WBC IS 2.9-7.7 K/ML * FOR ADULT BLACK MALES AND FEMALES, NORMAL RBC,HGB, AND HCT IS 5% LESS SOURCE FOR DATA: Hamilton Thorne 1800 OPERATION MANUAL( AUTOMATED BLOOD COUNTS AND DIFF.) APPENDIX B-3 CHRONIC KIDNEY DISEASE STAGING PER NKF: MALE GFR INTERPRETATION: 20-49 YRS: >60 mL/min Normal 50-59 YRS: >56 mL/min Normal 60-69 YRS: >49 mL/min Normal 70-79 YRS: >42 mL/min Normal 80 and above >35 mL/min Normal FEMALE GRF INTERPRETATION: 20-39 YRS: >60 mL/min Normal 40-49 YRS: >58 mL/min Normal 50-59 YRS: >51 mL/min Normal 60-69 YRS: >45 mL/min Normal 70-79 YRS: >39 mL/min Normal 80 and above >32 mL/min NormalCLASSIFICATION CHOLESTEROL FOR ADULTS CHILDREN/ADOLESCENTS* DESIRABLE: <200 MG/DL <170 MG/DL BORDER-LINE HIGH RISK: 200-239 MG/DL 170-199 MG/DL HIGH RISK: >240 MG/DL >200 MG/DL CLASS. FOR PRIMARY LDL CHOL PREVENTION: LDL CHOL-CHILD/ADOLESCENTS* DESIRABLE: <130 MG/DL <110 MG/DL BORDERLINE-HIGH RISK: 130- 159 MG/DL 110-129 MG/DL HIGH RISK: >160 MG/DL >130 MG/DL *CHILDREN AND ADOLESCENTS REPRESENTS INDIVIDUALA AGED 2-19 YEARS EXCLUSIVE.NORMAL RANGES Age WBC RBC HGB HCT MCV PLT Adult M 4.1-10.9 4.20-6.30 12.0-18.0 37.0-51.0 80-97 140-440 Adult F 4.1-10.9 4.04-5.48 12.0-18.0 37.0-51.0 80-97 140-440 0- 1 Yr 5.0-20.0 3.9-5.9 15-18 MV: 44 MV: 91 MV: 277 2-9 Yr. 6.0-17.0 3.8-5.4 11-13 MV: 37 MV: 78 MV: 300 10 Yrs. 5.0-13.0 3.8-5.4 12-15 MV: 39 MV: 80 MV: 250 NOTE: * FOR ADULT BLACK MALES AND FEMALES, NORMAL WBC IS 2.9-7.7 K/ML * FOR ADULT BLACK MALES AND FEMALES, NORMAL RBC,HGB, AND HCT IS 5% LESS SOURCE FOR DATA: BORIS DYN 1800 OPERATION MANUAL( AUTOMATED BLOOD COUNTS AND DIFF.) APPENDIX B-3 BUN 17 mg/dL 8-23 [facility] NORMAL RANGES Age WBC RBC HGB HCT MCV PLT Adult M 4.1-10.9 4.20-6.30 12.0-18.0 37.0-51.0 80-97 140-440 Adult F 4.1-10.9 4.04-5.48 12.0-18.0 37.0-51.0 80-97 140-440 0 -1 Yr 5.0-20.0 3.9-5.9 15-18 MV: 44 MV: 91 MV: 277 2-9 Yr. 6.0-17.0 3.8-5.4 11-13 MV: 37 MV: 78 MV: 300 10 Yrs. 5.0-13.0 3.8-5.4 12-15 MV: 39 MV: 80 MV: 250 NOTE: * FOR ADULT BLACK MALES AND FEMALES, NORMAL WBC IS 2.9-7.7 K/ML * FOR ADULT BLACK MALES AND FEMALES, NORMAL RBC,HGB, AND HCT IS 5% LESS SOURCE FOR DATA: BORIS DYN 1800 OPERATION MANUAL( AUTOMATED BLOOD COUNTS AND DIFF.) APPENDIX B-3 CHRONIC KIDNEY DISEASE STAGING PER NKF: MALE GFR INTERPRETATION: 20-49 YRS: >60 mL/min Normal 50-59 YRS: >56 mL/min Normal 60-69 YRS: >49 mL/min Normal 70-79 YRS: >42 mL/min Normal 80 and above >35 mL/min Normal FEMALE GRF INTERPRETATION: 20-39 YRS: >60 mL/min Normal 40-49 YRS: >58 mL/min Normal 50-59 YRS: >51 mL/min Normal 60-69 YRS: >45 mL/min Normal 70-79 YRS: >39 mL/min Normal 80 and above >32 mL/min NormalCLASSIFICATION CHOLESTEROL FOR ADULTS CHILDREN/ADOLESCENTS* DESIRABLE: <200 MG/DL <170 MG/DL BORDER-LINE HIGH RISK: 200-239 MG/DL 170-199 MG/DL HIGH RISK: >240 MG/DL >200 MG/DL CLASS. FOR PRIMARY LDL CHOL PREVENTION: LDL CHOL-CHILD/ADOLESCENTS* DESIRABLE: <130 MG/DL <110 MG/DL BORDERLINE-HIGH RISK: 130- 159 MG/DL 110-129 MG/DL HIGH RISK: >160 MG/DL >130 MG/DL *CHILDREN AND ADOLESCENTS REPRESENTS INDIVIDUALA AGED 2-19 YEARS EXCLUSIVE.NORMAL RANGES Age WBC RBC HGB HCT MCV PLT Adult M 4.1-10.9 4.20-6.30 12.0-18.0 37.0-51.0 80-97 140-440 Adult F 4.1-10.9 4.04-5.48 12.0-18.0 37.0-51.0 80-97 140-440 0- 1 Yr 5.0-20.0 3.9-5.9 15-18 MV: 44 MV: 91 MV: 277 2-9 Yr. 6.0-17.0 3.8-5.4 11-13 MV: 37 MV: 78 MV: 300 10 Yrs. 5.0-13.0 3.8-5.4 12-15 MV: 39 MV: 80 MV: 250 NOTE: * FOR ADULT BLACK MALES AND FEMALES, NORMAL WBC IS 2.9-7.7 K/ML * FOR ADULT BLACK MALES AND FEMALES, NORMAL RBC,HGB, AND HCT IS 5% LESS SOURCE FOR DATA: Hamilton Thorne 1800 OPERATION MANUAL( AUTOMATED BLOOD COUNTS AND DIFF.) APPENDIX B-3 Creat 0.9 mg/dL 0.5-1.0 [facility] NORMAL RANGES Age WBC RBC HGB HCT MCV PLT Adult M 4.1-10.9 4.20-6.30 12.0-18.0 37.0-51.0 80-97 140-440 Adult F 4.1-10.9 4.04-5.48 12.0-18.0 37.0-51.0 80-97 140-440 0 -1 Yr 5.0-20.0 3.9-5.9 15-18 MV: 44 MV: 91 MV: 277 2-9 Yr. 6.0-17.0 3.8-5.4 11-13 MV: 37 MV: 78 MV: 300 10 Yrs. 5.0-13.0 3.8-5.4 12-15 MV: 39 MV: 80 MV: 250 NOTE: * FOR ADULT BLACK MALES AND FEMALES, NORMAL WBC IS 2.9-7.7 K/ML * FOR ADULT BLACK MALES AND FEMALES, NORMAL RBC,HGB, AND HCT IS 5% LESS SOURCE FOR DATA: Hamilton Thorne 1800 OPERATION MANUAL( AUTOMATED BLOOD COUNTS AND DIFF.) APPENDIX B-3 CHRONIC KIDNEY DISEASE STAGING PER NKF: MALE GFR INTERPRETATION: 20-49 YRS: >60 mL/min Normal 50-59 YRS: >56 mL/min Normal 60-69 YRS: >49 mL/min Normal 70-79 YRS: >42 mL/min Normal 80 and above >35 mL/min Normal FEMALE GRF INTERPRETATION: 20-39 YRS: >60 mL/min Normal 40-49 YRS: >58 mL/min Normal 50-59 YRS: >51 mL/min Normal 60-69 YRS: >45 mL/min Normal 70-79 YRS: >39 mL/min Normal 80 and above >32 mL/min NormalCLASSIFICATION CHOLESTEROL FOR ADULTS CHILDREN/ADOLESCENTS* DESIRABLE: <200 MG/DL <170 MG/DL BORDER-LINE HIGH RISK: 200-239 MG/DL 170-199 MG/DL HIGH RISK: >240 MG/DL >200 MG/DL CLASS. FOR PRIMARY LDL CHOL PREVENTION: LDL CHOL-CHILD/ADOLESCENTS* DESIRABLE: <130 MG/DL <110 MG/DL BORDERLINE-HIGH RISK: 130- 159 MG/DL 110-129 MG/DL HIGH RISK: >160 MG/DL >130 MG/DL *CHILDREN AND ADOLESCENTS REPRESENTS INDIVIDUALA AGED 2-19 YEARS EXCLUSIVE.NORMAL RANGES Age WBC RBC HGB HCT MCV PLT Adult M 4.1-10.9 4.20-6.30 12.0-18.0 37.0-51.0 80 140-440 Adult F 4.1-10.9 4.04-5.48 12.0-18.0 37.0-51.0 80 140-440 0- 1 Yr 5.0-20.0 3.9-5.9 15-18 MV: 44 MV: 91 MV: 277 2-9 Yr. 6.0-17.0 3.8-5.4 11-13 MV: 37 MV: 78 MV: 300 10 Yrs. 5.0-13.0 3.8-5.4 12-15 MV: 39 MV: 80 MV: 250 NOTE: * FOR ADULT BLACK MALES AND FEMALES, NORMAL WBC IS 2.9-7.7 K/ML * FOR ADULT BLACK MALES AND FEMALES, NORMAL RBC,HGB, AND HCT IS 5% LESS SOURCE FOR DATA: [employer] 1800 OPERATION MANUAL( AUTOMATED BLOOD COUNTS AND DIFF.) APPENDIX B-3 Na 140 mmol/L 136-145 [facility] ([facility] NORMAL RANGES Age WBC RBC HGB HCT MCV PLT Adult M 4.1-10.9 4.20-6.30 12.0-18.0 37.0-51.0 80 140-440 Adult F 4.1-10.9 4.04-5.48 12.0-18.0 37.0-51.0 80 140-440 0 -1 Yr 5.0-20.0 3.9-5.9 15-18 MV: 44 MV: 91 MV: 277 2-9 Yr. 6.0-17.0 3.8-5.4 11-13 MV: 37 MV: 78 MV: 300 10 Yrs. 5.0-13.0 3.8-5.4 12-15 MV: 39 MV: 80 MV: 250 NOTE: * FOR ADULT BLACK MALES AND FEMALES, NORMAL WBC IS 2.9-7.7 K/ML * FOR ADULT BLACK MALES AND FEMALES, NORMAL RBC,HGB, AND HCT IS 5% LESS SOURCE FOR DATA: [employer] 1800 OPERATION MANUAL( AUTOMATED BLOOD COUNTS AND DIFF.) APPENDIX B-3 CHRONIC KIDNEY DISEASE STAGING PER NKF: MALE GFR INTERPRETATION: 20-49 YRS: >60 mL/min Normal 50-59 YRS: >56 mL/min Normal 60-69 YRS: >49 mL/min Normal 70-79 YRS: >42 mL/min Normal 80 and above >35 mL/min Normal FEMALE GRF INTERPRETATION: 20-39 YRS: >60 mL/min Normal 40-49 YRS: >58 mL/min Normal 50-59 YRS: >51 mL/min Normal 60-69 YRS: >45 mL/min Normal 70-79 YRS: >39 mL/min Normal 80 and above >32 mL/min NormalCLASSIFICATION CHOLESTEROL FOR ADULTS CHILDREN/ADOLESCENTS* DESIRABLE: <200 MG/DL <170 MG/DL BORDER-LINE HIGH RISK: 200-239 MG/DL 170-199 MG/DL HIGH RISK: >240 MG/DL >200 MG/DL CLASS. FOR PRIMARY LDL CHOL PREVENTION: LDL CHOL-CHILD/ADOLESCENTS* DESIRABLE: <130 MG/DL <110 MG/DL BORDERLINE-HIGH RISK: 130- 159 MG/DL 110-129 MG/DL HIGH RISK: >160 MG/DL >130 MG/DL *CHILDREN AND ADOLESCENTS REPRESENTS INDIVIDUALA AGED 2-19 YEARS EXCLUSIVE.NORMAL RANGES Age WBC RBC HGB HCT MCV PLT Adult M 4.1-10.9 4.20-6.30 12.0-18.0 37.0-51.0 80-97 140-440 Adult F 4.1-10.9 4.04-5.48 12.0-18.0 37.0-51.0 80-97 140-440 0- 1 Yr 5.0-20.0 3.9-5.9 15-18 MV: 44 MV: 91 MV: 277 2-9 Yr. 6.0-17.0 3.8-5.4 11-13 MV: 37 MV: 78 MV: 300 10 Yrs. 5.0-13.0 3.8-5.4 12-15 MV: 39 MV: 80 MV: 250 NOTE: * FOR ADULT BLACK MALES AND FEMALES, NORMAL WBC IS 2.9-7.7 K/ML * FOR ADULT BLACK MALES AND FEMALES, NORMAL RBC,HGB, AND HCT IS 5% LESS SOURCE FOR DATA: [employer] 1800 OPERATION MANUAL( AUTOMATED BLOOD COUNTS AND DIFF.) APPENDIX B-3 BUN/Creatinine Ratio 18.9 [facility] ([facility] NORMAL RANGES Age WBC RBC HGB HCT MCV PLT Adult M 4.1-10.9 4.20-6.30 12.0-18.0 37.0-51.0 80-97 140-440 Adult F 4.1-10.9 4.04-5.48 12.0-18.0 37.0-51.0 80-97 140-440 0 -1 Yr 5.0-20.0 3.9-5.9 15-18 MV: 44 MV: 91 MV: 277 2-9 Yr. 6.0-17.0 3.8-5.4 11-13 MV: 37 MV: 78 MV: 300 10 Yrs. 5.0-13.0 3.8-5.4 12-15 MV: 39 MV: 80 MV: 250 NOTE: * FOR ADULT BLACK MALES AND FEMALES, NORMAL WBC IS 2.9-7.7 K/ML * FOR ADULT BLACK MALES AND FEMALES, NORMAL RBC,HGB, AND HCT IS 5% LESS SOURCE FOR DATA: [employer] 1800 OPERATION MANUAL( AUTOMATED BLOOD COUNTS AND DIFF.) APPENDIX B-3 CHRONIC KIDNEY DISEASE STAGING PER NKF: MALE GFR INTERPRETATION: 20-49 YRS: >60 mL/min Normal 50-59 YRS: >56 mL/min Normal 60-69 YRS: >49 mL/min Normal 70-79 YRS: >42 mL/min Normal 80 and above >35 mL/min Normal FEMALE GRF INTERPRETATION: 20-39 YRS: >60 mL/min Normal 40-49 YRS: >58 mL/min Normal 50-59 YRS: >51 mL/min Normal 60-69 YRS: >45 mL/min Normal 70-79 YRS: >39 mL/min Normal 80 and above >32 mL/min NormalCLASSIFICATION CHOLESTEROL FOR ADULTS CHILDREN/ADOLESCENTS* DESIRABLE: <200 MG/DL <170 MG/DL BORDER-LINE HIGH RISK: 200-239 MG/DL 170-199 MG/DL HIGH RISK: >240 MG/DL >200 MG/DL CLASS. FOR PRIMARY LDL CHOL PREVENTION: LDL CHOL-CHILD/ADOLESCENTS* DESIRABLE: <130 MG/DL <110 MG/DL BORDERLINE-HIGH RISK: 130- 159 MG/DL 110-129 MG/DL HIGH RISK: >160 MG/DL >130 MG/DL *CHILDREN AND ADOLESCENTS REPRESENTS INDIVIDUALA AGED 2-19 YEARS EXCLUSIVE.NORMAL RANGES Age WBC RBC HGB HCT MCV PLT Adult M 4.1-10.9 4.20-6.30 12.0-18.0 37.0-51.0 80-97 140-440 Adult F 4.1-10.9 4.04-5.48 12.0-18.0 37.0-51.0 80-97 140-440 0- 1 Yr 5.0-20.0 3.9-5.9 15-18 MV: 44 MV: 91 MV: 277 2-9 Yr. 6.0-17.0 3.8-5.4 11-13 MV: 37 MV: 78 MV: 300 10 Yrs. 5.0-13.0 3.8-5.4 12-15 MV: 39 MV: 80 MV: 250 NOTE: * FOR ADULT BLACK MALES AND FEMALES, NORMAL WBC IS 2.9-7.7 K/ML * FOR ADULT BLACK MALES AND FEMALES, NORMAL RBC,HGB, AND HCT IS 5% LESS SOURCE FOR DATA: BORIS DYN 1800 OPERATION MANUAL( AUTOMATED BLOOD COUNTS AND DIFF.) APPENDIX B-3 Co2 23.6 mmol/L 22.0-29.0 [facility] ([facility] NORMAL RANGES Age WBC RBC HGB HCT MCV PLT Adult M 4.1-10.9 4.20-6.30 12.0-18.0 37.0-51.0 80-97 140-440 Adult F 4.1-10.9 4.04-5.48 12.0-18.0 37.0-51.0 80-97 140-440 0 -1 Yr 5.0-20.0 3.9-5.9 15-18 MV: 44 MV: 91 MV: 277 2-9 Yr. 6.0-17.0 3.8-5.4 11-13 MV: 37 MV: 78 MV: 300 10 Yrs. 5.0-13.0 3.8-5.4 12-15 MV: 39 MV: 80 MV: 250 NOTE: * FOR ADULT BLACK MALES AND FEMALES, NORMAL WBC IS 2.9-7.7 K/ML * FOR ADULT BLACK MALES AND FEMALES, NORMAL RBC,HGB, AND HCT IS 5% LESS SOURCE FOR DATA: Hamilton Thorne 1800 OPERATION MANUAL( AUTOMATED BLOOD COUNTS AND DIFF.) APPENDIX B-3 CHRONIC KIDNEY DISEASE STAGING PER NKF: MALE GFR INTERPRETATION: 20-49 YRS: >60 mL/min Normal 50-59 YRS: >56 mL/min Normal 60-69 YRS: >49 mL/min Normal 70-79 YRS: >42 mL/min Normal 80 and above >35 mL/min Normal FEMALE GRF INTERPRETATION: 20-39 YRS: >60 mL/min Normal 40-49 YRS: >58 mL/min Normal 50-59 YRS: >51 mL/min Normal 60-69 YRS: >45 mL/min Normal 70-79 YRS: >39 mL/min Normal 80 and above >32 mL/min NormalCLASSIFICATION CHOLESTEROL FOR ADULTS CHILDREN/ADOLESCENTS* DESIRABLE: <200 MG/DL <170 MG/DL BORDER-LINE HIGH RISK: 200-239 MG/DL 170-199 MG/DL HIGH RISK: >240 MG/DL >200 MG/DL CLASS. FOR PRIMARY LDL CHOL PREVENTION: LDL CHOL-CHILD/ADOLESCENTS* DESIRABLE: <130 MG/DL <110 MG/DL BORDERLINE-HIGH RISK: 130- 159 MG/DL 110-129 MG/DL HIGH RISK: >160 MG/DL >130 MG/DL *CHILDREN AND ADOLESCENTS REPRESENTS INDIVIDUALA AGED 2-19 YEARS EXCLUSIVE.NORMAL RANGES Age WBC RBC HGB HCT MCV PLT Adult M 4.1-10.9 4.20-6.30 12.0-18.0 37.0-51.0 80-97 140-440 Adult F 4.1-10.9 4.04-5.48 12.0-18.0 37.0-51.0 80-97 140-440 0- 1 Yr 5.0-20.0 3.9-5.9 15-18 MV: 44 MV: 91 MV: 277 2-9 Yr. 6.0-17.0 3.8-5.4 11-13 MV: 37 MV: 78 MV: 300 10 Yrs. 5.0-13.0 3.8-5.4 12-15 MV: 39 MV: 80 MV: 250 NOTE: * FOR ADULT BLACK MALES AND FEMALES, NORMAL WBC IS 2.9-7.7 K/ML * FOR ADULT BLACK MALES AND FEMALES, NORMAL RBC,HGB, AND HCT IS 5% LESS SOURCE FOR DATA: BORIS DYN 1800 OPERATION MANUAL( AUTOMATED BLOOD COUNTS AND DIFF.) APPENDIX B-3 CL 105.5 mmol/L 98.0-107.0 [facility] ([facility] NORMAL RANGES Age WBC RBC HGB HCT MCV PLT Adult M 4.1-10.9 4.20-6.30 12.0-18.0 37.0-51.0 80-97 140-440 Adult F 4.1-10.9 4.04-5.48 12.0-18.0 37.0-51.0 80-97 140-440 0 -1 Yr 5.0-20.0 3.9-5.9 15-18 MV: 44 MV: 91 MV: 277 2-9 Yr. 6.0-17.0 3.8-5.4 11-13 MV: 37 MV: 78 MV: 300 10 Yrs. 5.0-13.0 3.8-5.4 12-15 MV: 39 MV: 80 MV: 250 NOTE: * FOR ADULT BLACK MALES AND FEMALES, NORMAL WBC IS 2.9-7.7 K/ML * FOR ADULT BLACK MALES AND FEMALES, NORMAL RBC,HGB, AND HCT IS 5% LESS SOURCE FOR DATA: Hamilton Thorne 1800 OPERATION MANUAL( AUTOMATED BLOOD COUNTS AND DIFF.) APPENDIX B-3 CHRONIC KIDNEY DISEASE STAGING PER NKF: MALE GFR INTERPRETATION: 20-49 YRS: >60 mL/min Normal 50-59 YRS: >56 mL/min Normal 60-69 YRS: >49 mL/min Normal 70-79 YRS: >42 mL/min Normal 80 and above >35 mL/min Normal FEMALE GRF INTERPRETATION: 20-39 YRS: >60 mL/min Normal 40-49 YRS: >58 mL/min Normal 50-59 YRS: >51 mL/min Normal 60-69 YRS: >45 mL/min Normal 70-79 YRS: >39 mL/min Normal 80 and above >32 mL/min NormalCLASSIFICATION CHOLESTEROL FOR ADULTS CHILDREN/ADOLESCENTS* DESIRABLE: <200 MG/DL <170 MG/DL BORDER-LINE HIGH RISK: 200-239 MG/DL 170-199 MG/DL HIGH RISK: >240 MG/DL >200 MG/DL CLASS. FOR PRIMARY LDL CHOL PREVENTION: LDL CHOL-CHILD/ADOLESCENTS* DESIRABLE: <130 MG/DL <110 MG/DL BORDERLINE-HIGH RISK: 130- 159 MG/DL 110-129 MG/DL HIGH RISK: >160 MG/DL >130 MG/DL *CHILDREN AND ADOLESCENTS REPRESENTS INDIVIDUALA AGED 2-19 YEARS EXCLUSIVE.NORMAL RANGES Age WBC RBC HGB HCT MCV PLT Adult M 4.1-10.9 4.20-6.30 12.0-18.0 37.0-51.0 80-97 140-440 Adult F 4.1-10.9 4.04-5.48 12.0-18.0 37.0-51.0 80-97 140-440 0- 1 Yr 5.0-20.0 3.9-5.9 15-18 MV: 44 MV: 91 MV: 277 2-9 Yr. 6.0-17.0 3.8-5.4 11-13 MV: 37 MV: 78 MV: 300 10 Yrs. 5.0-13.0 3.8-5.4 12-15 MV: 39 MV: 80 MV: 250 NOTE: * FOR ADULT BLACK MALES AND FEMALES, NORMAL WBC IS 2.9-7.7 K/ML * FOR ADULT BLACK MALES AND FEMALES, NORMAL RBC,HGB, AND HCT IS 5% LESS SOURCE FOR DATA: BORIS DYN 1800 OPERATION MANUAL( AUTOMATED BLOOD COUNTS AND DIFF.) APPENDIX B-3 K 4.8 mmol/L 3.5-5.1 [facility] ([facility] NORMAL RANGES Age WBC RBC HGB HCT MCV PLT Adult M 4.1-10.9 4.20-6.30 12.0-18.0 37.0-51.0 80-97 140-440 Adult F 4.1-10.9 4.04-5.48 12.0-18.0 37.0-51.0 80-97 140-440 0 -1 Yr 5.0-20.0 3.9-5.9 15-18 MV: 44 MV: 91 MV: 277 2-9 Yr. 6.0-17.0 3.8-5.4 11-13 MV: 37 MV: 78 MV: 300 10 Yrs. 5.0-13.0 3.8-5.4 12-15 MV: 39 MV: 80 MV: 250 NOTE: * FOR ADULT BLACK MALES AND FEMALES, NORMAL WBC IS 2.9-7.7 K/ML * FOR ADULT BLACK MALES AND FEMALES, NORMAL RBC,HGB, AND HCT IS 5% LESS SOURCE FOR DATA: Hamilton Thorne 1800 OPERATION MANUAL( AUTOMATED BLOOD COUNTS AND DIFF.) APPENDIX B-3 CHRONIC KIDNEY DISEASE STAGING PER NKF: MALE GFR INTERPRETATION: 20-49 YRS: >60 mL/min Normal 50-59 YRS: >56 mL/min Normal 60-69 YRS: >49 mL/min Normal 70-79 YRS: >42 mL/min Normal 80 and above >35 mL/min Normal FEMALE GRF INTERPRETATION: 20-39 YRS: >60 mL/min Normal 40-49 YRS: >58 mL/min Normal 50-59 YRS: >51 mL/min Normal 60-69 YRS: >45 mL/min Normal 70-79 YRS: >39 mL/min Normal 80 and above >32 mL/min NormalCLASSIFICATION CHOLESTEROL FOR ADULTS CHILDREN/ADOLESCENTS* DESIRABLE: <200 MG/DL <170 MG/DL BORDER-LINE HIGH RISK: 200-239 MG/DL 170-199 MG/DL HIGH RISK: >240 MG/DL >200 MG/DL CLASS. FOR PRIMARY LDL CHOL PREVENTION: LDL CHOL-CHILD/ADOLESCENTS* DESIRABLE: <130 MG/DL <110 MG/DL BORDERLINE-HIGH RISK: 130- 159 MG/DL 110-129 MG/DL HIGH RISK: >160 MG/DL >130 MG/DL *CHILDREN AND ADOLESCENTS REPRESENTS INDIVIDUALA AGED 2-19 YEARS EXCLUSIVE.NORMAL RANGES Age WBC RBC HGB HCT MCV PLT Adult M 4.1-10.9 4.20-6.30 12.0-18.0 37.0-51.0 80-97 140-440 Adult F 4.1-10.9 4.04-5.48 12.0-18.0 37.0-51.0 80-97 140-440 0- 1 Yr 5.0-20.0 3.9-5.9 15-18 MV: 44 MV: 91 MV: 277 2-9 Yr. 6.0-17.0 3.8-5.4 11-13 MV: 37 MV: 78 MV: 300 10 Yrs. 5.0-13.0 3.8-5.4 12-15 MV: 39 MV: 80 MV: 250 NOTE: * FOR ADULT BLACK MALES AND FEMALES, NORMAL WBC IS 2.9-7.7 K/ML * FOR ADULT BLACK MALES AND FEMALES, NORMAL RBC,HGB, AND HCT IS 5% LESS SOURCE FOR DATA: BORIS DYN 1800 OPERATION MANUAL( AUTOMATED BLOOD COUNTS AND DIFF.) APPENDIX B-3 CA 9.5 mg/dL 8.6-10.2 [facility] ([facility] NORMAL RANGES Age WBC RBC HGB HCT MCV PLT Adult M 4.1-10.9 4.20-6.30 12.0-18.0 37.0-51.0 80-97 140-440 Adult F 4.1-10.9 4.04-5.48 12.0-18.0 37.0-51.0 80-97 140-440 0 -1 Yr 5.0-20.0 3.9-5.9 15-18 MV: 44 MV: 91 MV: 277 2-9 Yr. 6.0-17.0 3.8-5.4 11-13 MV: 37 MV: 78 MV: 300 10 Yrs. 5.0-13.0 3.8-5.4 12-15 MV: 39 MV: 80 MV: 250 NOTE: * FOR ADULT BLACK MALES AND FEMALES, NORMAL WBC IS 2.9-7.7 K/ML * FOR ADULT BLACK MALES AND FEMALES, NORMAL RBC,HGB, AND HCT IS 5% LESS SOURCE FOR DATA: BORIS DYN 1800 OPERATION MANUAL( AUTOMATED BLOOD COUNTS AND DIFF.) APPENDIX B-3 CHRONIC KIDNEY DISEASE STAGING PER NKF: MALE GFR INTERPRETATION: 20-49 YRS: >60 mL/min Normal 50-59 YRS: >56 mL/min Normal 60-69 YRS: >49 mL/min Normal 70-79 YRS: >42 mL/min Normal 80 and above >35 mL/min Normal FEMALE GRF INTERPRETATION: 20-39 YRS: >60 mL/min Normal 40-49 YRS: >58 mL/min Normal 50-59 YRS: >51 mL/min Normal 60-69 YRS: >45 mL/min Normal 70-79 YRS: >39 mL/min Normal 80 and above >32 mL/min NormalCLASSIFICATION CHOLESTEROL FOR ADULTS CHILDREN/ADOLESCENTS* DESIRABLE: <200 MG/DL <170 MG/DL BORDER-LINE HIGH RISK: 200-239 MG/DL 170-199 MG/DL HIGH RISK: >240 MG/DL >200 MG/DL CLASS. FOR PRIMARY LDL CHOL PREVENTION: LDL CHOL-CHILD/ADOLESCENTS* DESIRABLE: <130 MG/DL <110 MG/DL BORDERLINE-HIGH RISK: 130- 159 MG/DL 110-129 MG/DL HIGH RISK: >160 MG/DL >130 MG/DL *CHILDREN AND ADOLESCENTS REPRESENTS INDIVIDUALA AGED 2-19 YEARS EXCLUSIVE.NORMAL RANGES Age WBC RBC HGB HCT MCV PLT Adult M 4.1-10.9 4.20-6.30 12.0-18.0 37.0-51.0 80-97 140-440 Adult F 4.1-10.9 4.04-5.48 12.0-18.0 37.0-51.0 80-97 140-440 0- 1 Yr 5.0-20.0 3.9-5.9 15-18 MV: 44 MV: 91 MV: 277 2-9 Yr. 6.0-17.0 3.8-5.4 11-13 MV: 37 MV: 78 MV: 300 10 Yrs. 5.0-13.0 3.8-5.4 12-15 MV: 39 MV: 80 MV: 250 NOTE: * FOR ADULT BLACK MALES AND FEMALES, NORMAL WBC IS 2.9-7.7 K/ML * FOR ADULT BLACK MALES AND FEMALES, NORMAL RBC,HGB, AND HCT IS 5% LESS SOURCE FOR DATA: BORIS DYN 1800 OPERATION MANUAL( AUTOMATED BLOOD COUNTS AND DIFF.) APPENDIX B-3 TP 6.6 g/dL 6.6-8.7 [facility] ([facility] NORMAL RANGES Age WBC RBC HGB HCT MCV PLT Adult M 4.1-10.9 4.20-6.30 12.0-18.0 37.0-51.0 80-97 140-440 Adult F 4.1-10.9 4.04-5.48 12.0-18.0 37.0-51.0 80-97 140-440 0 -1 Yr 5.0-20.0 3.9-5.9 15-18 MV: 44 MV: 91 MV: 277 2-9 Yr. 6.0-17.0 3.8-5.4 11-13 MV: 37 MV: 78 MV: 300 10 Yrs. 5.0-13.0 3.8-5.4 12-15 MV: 39 MV: 80 MV: 250 NOTE: * FOR ADULT BLACK MALES AND FEMALES, NORMAL WBC IS 2.9-7.7 K/ML * FOR ADULT BLACK MALES AND FEMALES, NORMAL RBC,HGB, AND HCT IS 5% LESS SOURCE FOR DATA: BORIS DYN 1800 OPERATION MANUAL( AUTOMATED BLOOD COUNTS AND DIFF.) APPENDIX B-3 CHRONIC KIDNEY DISEASE STAGING PER NKF: MALE GFR INTERPRETATION: 20-49 YRS: >60 mL/min Normal 50-59 YRS: >56 mL/min Normal 60-69 YRS: >49 mL/min Normal 70-79 YRS: >42 mL/min Normal 80 and above >35 mL/min Normal FEMALE GRF INTERPRETATION: 20-39 YRS: >60 mL/min Normal 40-49 YRS: >58 mL/min Normal 50-59 YRS: >51 mL/min Normal 60-69 YRS: >45 mL/min Normal 70-79 YRS: >39 mL/min Normal 80 and above >32 mL/min NormalCLASSIFICATION CHOLESTEROL FOR ADULTS CHILDREN/ADOLESCENTS* DESIRABLE: <200 MG/DL <170 MG/DL BORDER-LINE HIGH RISK: 200-239 MG/DL 170-199 MG/DL HIGH RISK: >240 MG/DL >200 MG/DL CLASS. FOR PRIMARY LDL CHOL PREVENTION: LDL CHOL-CHILD/ADOLESCENTS* DESIRABLE: <130 MG/DL <110 MG/DL BORDERLINE-HIGH RISK: 130- 159 MG/DL 110-129 MG/DL HIGH RISK: >160 MG/DL >130 MG/DL *CHILDREN AND ADOLESCENTS REPRESENTS INDIVIDUALA AGED 2-19 YEARS EXCLUSIVE.NORMAL RANGES Age WBC RBC HGB HCT MCV PLT Adult M 4.1-10.9 4.20-6.30 12.0-18.0 37.0-51.0 80-97 140-440 Adult F 4.1-10.9 4.04-5.48 12.0-18.0 37.0-51.0 80-97 140-440 0- 1 Yr 5.0-20.0 3.9-5.9 15-18 MV: 44 MV: 91 MV: 277 2-9 Yr. 6.0-17.0 3.8-5.4 11-13 MV: 37 MV: 78 MV: 300 10 Yrs. 5.0-13.0 3.8-5.4 12-15 MV: 39 MV: 80 MV: 250 NOTE: * FOR ADULT BLACK MALES AND FEMALES, NORMAL WBC IS 2.9-7.7 K/ML * FOR ADULT BLACK MALES AND FEMALES, NORMAL RBC,HGB, AND HCT IS 5% LESS SOURCE FOR DATA: Hamilton Thorne 1800 OPERATION MANUAL( AUTOMATED BLOOD COUNTS AND DIFF.) APPENDIX B-3 Alb 4.5 g/dL 3.4-4.8 [facility] ([facility] NORMAL RANGES Age WBC RBC HGB HCT MCV PLT Adult M 4.1-10.9 4.20-6.30 12.0-18.0 37.0-51.0 80-97 140-440 Adult F 4.1-10.9 4.04-5.48 12.0-18.0 37.0-51.0 80-97 140-440 0 -1 Yr 5.0-20.0 3.9-5.9 15-18 MV: 44 MV: 91 MV: 277 2-9 Yr. 6.0-17.0 3.8-5.4 11-13 MV: 37 MV: 78 MV: 300 10 Yrs. 5.0-13.0 3.8-5.4 12-15 MV: 39 MV: 80 MV: 250 NOTE: * FOR ADULT BLACK MALES AND FEMALES, NORMAL WBC IS 2.9-7.7 K/ML * FOR ADULT BLACK MALES AND FEMALES, NORMAL RBC,HGB, AND HCT IS 5% LESS SOURCE FOR DATA: Hamilton Thorne 1800 OPERATION MANUAL( AUTOMATED BLOOD COUNTS AND DIFF.) APPENDIX B-3 CHRONIC KIDNEY DISEASE STAGING PER NKF: MALE GFR INTERPRETATION: 20-49 YRS: >60 mL/min Normal 50-59 YRS: >56 mL/min Normal 60-69 YRS: >49 mL/min Normal 70-79 YRS: >42 mL/min Normal 80 and above >35 mL/min Normal FEMALE GRF INTERPRETATION: 20-39 YRS: >60 mL/min Normal 40-49 YRS: >58 mL/min Normal 50-59 YRS: >51 mL/min Normal 60-69 YRS: >45 mL/min Normal 70-79 YRS: >39 mL/min Normal 80 and above >32 mL/min NormalCLASSIFICATION CHOLESTEROL FOR ADULTS CHILDREN/ADOLESCENTS* DESIRABLE: <200 MG/DL <170 MG/DL BORDER-LINE HIGH RISK: 200-239 MG/DL 170-199 MG/DL HIGH RISK: >240 MG/DL >200 MG/DL CLASS. FOR PRIMARY LDL CHOL PREVENTION: LDL CHOL-CHILD/ADOLESCENTS* DESIRABLE: <130 MG/DL <110 MG/DL BORDERLINE-HIGH RISK: 130- 159 MG/DL 110-129 MG/DL HIGH RISK: >160 MG/DL >130 MG/DL *CHILDREN AND ADOLESCENTS REPRESENTS INDIVIDUALA AGED 2-19 YEARS EXCLUSIVE.NORMAL RANGES Age WBC RBC HGB HCT MCV PLT Adult M 4.1-10.9 4.20-6.30 12.0-18.0 37.0-51.0 80 140-440 Adult F 4.1-10.9 4.04-5.48 12.0-18.0 37.0-51.0 80 140-440 0- 1 Yr 5.0-20.0 3.9-5.9 15-18 MV: 44 MV: 91 MV: 277 2-9 Yr. 6.0-17.0 3.8-5.4 11-13 MV: 37 MV: 78 MV: 300 10 Yrs. 5.0-13.0 3.8-5.4 12-15 MV: 39 MV: 80 MV: 250 NOTE: * FOR ADULT BLACK MALES AND FEMALES, NORMAL WBC IS 2.9-7.7 K/ML * FOR ADULT BLACK MALES AND FEMALES, NORMAL RBC,HGB, AND HCT IS 5% LESS SOURCE FOR DATA: Hamilton Thorne 1800 OPERATION MANUAL( AUTOMATED BLOOD COUNTS AND DIFF.) APPENDIX B-3 A/G Ratio 2.1 [facility] NORMAL RANGES Age WBC RBC HGB HCT MCV PLT Adult M 4.1-10.9 4.20-6.30 12.0-18.0 37.0-51.0 80 140-440 Adult F 4.1-10.9 4.04-5.48 12.0-18.0 37.0-51.0 80-97 140-440 0 -1 Yr 5.0-20.0 3.9-5.9 15-18 MV: 44 MV: 91 MV: 277 2-9 Yr. 6.0-17.0 3.8-5.4 11-13 MV: 37 MV: 78 MV: 300 10 Yrs. 5.0-13.0 3.8-5.4 12-15 MV: 39 MV: 80 MV: 250 NOTE: * FOR ADULT BLACK MALES AND FEMALES, NORMAL WBC IS 2.9-7.7 K/ML * FOR ADULT BLACK MALES AND FEMALES, NORMAL RBC,HGB, AND HCT IS 5% LESS SOURCE FOR DATA: Hamilton Thorne 1800 OPERATION MANUAL( AUTOMATED BLOOD COUNTS AND DIFF.) APPENDIX B-3 CHRONIC KIDNEY DISEASE STAGING PER NKF: MALE GFR INTERPRETATION: 20-49 YRS: >60 mL/min Normal 50-59 YRS: >56 mL/min Normal 60-69 YRS: >49 mL/min Normal 70-79 YRS: >42 mL/min Normal 80 and above >35 mL/min Normal FEMALE GRF INTERPRETATION: 20-39 YRS: >60 mL/min Normal 40-49 YRS: >58 mL/min Normal 50-59 YRS: >51 mL/min Normal 60-69 YRS: >45 mL/min Normal 70-79 YRS: >39 mL/min Normal 80 and above >32 mL/min NormalCLASSIFICATION CHOLESTEROL FOR ADULTS CHILDREN/ADOLESCENTS* DESIRABLE: <200 MG/DL <170 MG/DL BORDER-LINE HIGH RISK: 200-239 MG/DL 170-199 MG/DL HIGH RISK: >240 MG/DL >200 MG/DL CLASS. FOR PRIMARY LDL CHOL PREVENTION: LDL CHOL-CHILD/ADOLESCENTS* DESIRABLE: <130 MG/DL <110 MG/DL BORDERLINE-HIGH RISK: 130- 159 MG/DL 110-129 MG/DL HIGH RISK: >160 MG/DL >130 MG/DL *CHILDREN AND ADOLESCENTS REPRESENTS INDIVIDUALA AGED 2-19 YEARS EXCLUSIVE.NORMAL RANGES Age WBC RBC HGB HCT MCV PLT Adult M 4.1-10.9 4.20-6.30 12.0-18.0 37.0-51.0 80-97 140-440 Adult F 4.1-10.9 4.04-5.48 12.0-18.0 37.0-51.0 80-97 140-440 0- 1 Yr 5.0-20.0 3.9-5.9 15-18 MV: 44 MV: 91 MV: 277 2-9 Yr. 6.0-17.0 3.8-5.4 11-13 MV: 37 MV: 78 MV: 300 10 Yrs. 5.0-13.0 3.8-5.4 12-15 MV: 39 MV: 80 MV: 250 NOTE: * FOR ADULT BLACK MALES AND FEMALES, NORMAL WBC IS 2.9-7.7 K/ML * FOR ADULT BLACK MALES AND FEMALES, NORMAL RBC,HGB, AND HCT IS 5% LESS SOURCE FOR DATA: Hamilton Thorne 1800 OPERATION MANUAL( AUTOMATED BLOOD COUNTS AND DIFF.) APPENDIX B-3 Alt (SGPT) 15 U/L 0-41 [facility] ([facility] NORMAL RANGES Age WBC RBC HGB HCT MCV PLT Adult M 4.1-10.9 4.20-6.30 12.0-18.0 37.0-51.0 80-97 140-440 Adult F 4.1-10.9 4.04-5.48 12.0-18.0 37.0-51.0 80-97 140-440 0 -1 Yr 5.0-20.0 3.9-5.9 15-18 MV: 44 MV: 91 MV: 277 2-9 Yr. 6.0-17.0 3.8-5.4 11-13 MV: 37 MV: 78 MV: 300 10 Yrs. 5.0-13.0 3.8-5.4 12-15 MV: 39 MV: 80 MV: 250 NOTE: * FOR ADULT BLACK MALES AND FEMALES, NORMAL WBC IS 2.9-7.7 K/ML * FOR ADULT BLACK MALES AND FEMALES, NORMAL RBC,HGB, AND HCT IS 5% LESS SOURCE FOR DATA: Hamilton Thorne 1800 OPERATION MANUAL( AUTOMATED BLOOD COUNTS AND DIFF.) APPENDIX B-3 CHRONIC KIDNEY DISEASE STAGING PER NKF: MALE GFR INTERPRETATION: 20-49 YRS: >60 mL/min Normal 50-59 YRS: >56 mL/min Normal 60-69 YRS: >49 mL/min Normal 70-79 YRS: >42 mL/min Normal 80 and above >35 mL/min Normal FEMALE GRF INTERPRETATION: 20-39 YRS: >60 mL/min Normal 40-49 YRS: >58 mL/min Normal 50-59 YRS: >51 mL/min Normal 60-69 YRS: >45 mL/min Normal 70-79 YRS: >39 mL/min Normal 80 and above >32 mL/min NormalCLASSIFICATION CHOLESTEROL FOR ADULTS CHILDREN/ADOLESCENTS* DESIRABLE: <200 MG/DL <170 MG/DL BORDER-LINE HIGH RISK: 200-239 MG/DL 170-199 MG/DL HIGH RISK: >240 MG/DL >200 MG/DL CLASS. FOR PRIMARY LDL CHOL PREVENTION: LDL CHOL-CHILD/ADOLESCENTS* DESIRABLE: <130 MG/DL <110 MG/DL BORDERLINE-HIGH RISK: 130- 159 MG/DL 110-129 MG/DL HIGH RISK: >160 MG/DL >130 MG/DL *CHILDREN AND ADOLESCENTS REPRESENTS INDIVIDUALA AGED 2-19 YEARS EXCLUSIVE.NORMAL RANGES Age WBC RBC HGB HCT MCV PLT Adult M 4.1-10.9 4.20-6.30 12.0-18.0 37.0-51.0 80-97 140-440 Adult F 4.1-10.9 4.04-5.48 12.0-18.0 37.0-51.0 80-97 140-440 0- 1 Yr 5.0-20.0 3.9-5.9 15-18 MV: 44 MV: 91 MV: 277 2-9 Yr. 6.0-17.0 3.8-5.4 11-13 MV: 37 MV: 78 MV: 300 10 Yrs. 5.0-13.0 3.8-5.4 12-15 MV: 39 MV: 80 MV: 250 NOTE: * FOR ADULT BLACK MALES AND FEMALES, NORMAL WBC IS 2.9-7.7 K/ML * FOR ADULT BLACK MALES AND FEMALES, NORMAL RBC,HGB, AND HCT IS 5% LESS SOURCE FOR DATA: [employer] DYN 1800 OPERATION MANUAL( AUTOMATED BLOOD COUNTS AND DIFF.) APPENDIX B-3 Alp 92.9 U/L 35-129 [facility] NORMAL RANGES Age WBC RBC HGB HCT MCV PLT Adult M 4.1-10.9 4.20-6.30 12.0-18.0 37.0-51.0 80-97 140-440 Adult F 4.1-10.9 4.04-5.48 12.0-18.0 37.0-51.0 80-97 140-440 0 -1 Yr 5.0-20.0 3.9-5.9 15-18 MV: 44 MV: 91 MV: 277 2-9 Yr. 6.0-17.0 3.8-5.4 11-13 MV: 37 MV: 78 MV: 300 10 Yrs. 5.0-13.0 3.8-5.4 12-15 MV: 39 MV: 80 MV: 250 NOTE: * FOR ADULT BLACK MALES AND FEMALES, NORMAL WBC IS 2.9-7.7 K/ML * FOR ADULT BLACK MALES AND FEMALES, NORMAL RBC,HGB, AND HCT IS 5% LESS SOURCE FOR DATA: Hamilton Thorne 1800 OPERATION MANUAL( AUTOMATED BLOOD COUNTS AND DIFF.) APPENDIX B-3 CHRONIC KIDNEY DISEASE STAGING PER NKF: MALE GFR INTERPRETATION: 20-49 YRS: >60 mL/min Normal 50-59 YRS: >56 mL/min Normal 60-69 YRS: >49 mL/min Normal 70-79 YRS: >42 mL/min Normal 80 and above >35 mL/min Normal FEMALE GRF INTERPRETATION: 20-39 YRS: >60 mL/min Normal 40-49 YRS: >58 mL/min Normal 50-59 YRS: >51 mL/min Normal 60-69 YRS: >45 mL/min Normal 70-79 YRS: >39 mL/min Normal 80 and above >32 mL/min NormalCLASSIFICATION CHOLESTEROL FOR ADULTS CHILDREN/ADOLESCENTS* DESIRABLE: <200 MG/DL <170 MG/DL BORDER-LINE HIGH RISK: 200-239 MG/DL 170-199 MG/DL HIGH RISK: >240 MG/DL >200 MG/DL CLASS. FOR PRIMARY LDL CHOL PREVENTION: LDL CHOL-CHILD/ADOLESCENTS* DESIRABLE: <130 MG/DL <110 MG/DL BORDERLINE-HIGH RISK: 130- 159 MG/DL 110-129 MG/DL HIGH RISK: >160 MG/DL >130 MG/DL *CHILDREN AND ADOLESCENTS REPRESENTS INDIVIDUALA AGED 2-19 YEARS EXCLUSIVE.NORMAL RANGES Age WBC RBC HGB HCT MCV PLT Adult M 4.1-10.9 4.20-6.30 12.0-18.0 37.0-51.0 80-97 140-440 Adult F 4.1-10.9 4.04-5.48 12.0-18.0 37.0-51.0 80-97 140-440 0- 1 Yr 5.0-20.0 3.9-5.9 15-18 MV: 44 MV: 91 MV: 277 2-9 Yr. 6.0-17.0 3.8-5.4 11-13 MV: 37 MV: 78 MV: 300 10 Yrs. 5.0-13.0 3.8-5.4 12-15 MV: 39 MV: 80 MV: 250 NOTE: * FOR ADULT BLACK MALES AND FEMALES, NORMAL WBC IS 2.9-7.7 K/ML * FOR ADULT BLACK MALES AND FEMALES, NORMAL RBC,HGB, AND HCT IS 5% LESS SOURCE FOR DATA: [employer] Thorne 1800 OPERATION MANUAL( AUTOMATED BLOOD COUNTS AND DIFF.) APPENDIX B-3 Globulin 2.2 [facility] NORMAL RANGES Age WBC RBC HGB HCT MCV PLT Adult M 4.1-10.9 4.20-6.30 12.0-18.0 37.0-51.0 80-97 140-440 Adult F 4.1-10.9 4.04-5.48 12.0-18.0 37.0-51.0 80-97 140-440 0 -1 Yr 5.0-20.0 3.9-5.9 15-18 MV: 44 MV: 91 MV: 277 2-9 Yr. 6.0-17.0 3.8-5.4 11-13 MV: 37 MV: 78 MV: 300 10 Yrs. 5.0-13.0 3.8-5.4 12-15 MV: 39 MV: 80 MV: 250 NOTE: * FOR ADULT BLACK MALES AND FEMALES, NORMAL WBC IS 2.9-7.7 K/ML * FOR ADULT BLACK MALES AND FEMALES, NORMAL RBC,HGB, AND HCT IS 5% LESS SOURCE FOR DATA: Hamilton Thorne 1800 OPERATION MANUAL( AUTOMATED BLOOD COUNTS AND DIFF.) APPENDIX B-3 CHRONIC KIDNEY DISEASE STAGING PER NKF: MALE GFR INTERPRETATION: 20-49 YRS: >60 mL/min Normal 50-59 YRS: >56 mL/min Normal 60-69 YRS: >49 mL/min Normal 70-79 YRS: >42 mL/min Normal 80 and above >35 mL/min Normal FEMALE GRF INTERPRETATION: 20-39 YRS: >60 mL/min Normal 40-49 YRS: >58 mL/min Normal 50-59 YRS: >51 mL/min Normal 60-69 YRS: >45 mL/min Normal 70-79 YRS: >39 mL/min Normal 80 and above >32 mL/min NormalCLASSIFICATION CHOLESTEROL FOR ADULTS CHILDREN/ADOLESCENTS* DESIRABLE: <200 MG/DL <170 MG/DL BORDER-LINE HIGH RISK: 200-239 MG/DL 170-199 MG/DL HIGH RISK: >240 MG/DL >200 MG/DL CLASS. FOR PRIMARY LDL CHOL PREVENTION: LDL CHOL-CHILD/ADOLESCENTS* DESIRABLE: <130 MG/DL <110 MG/DL BORDERLINE-HIGH RISK: 130- 159 MG/DL 110-129 MG/DL HIGH RISK: >160 MG/DL >130 MG/DL *CHILDREN AND ADOLESCENTS REPRESENTS INDIVIDUALA AGED 2-19 YEARS EXCLUSIVE.NORMAL RANGES Age WBC RBC HGB HCT MCV PLT Adult M 4.1-10.9 4.20-6.30 12.0-18.0 37.0-51.0 80-97 140-440 Adult F 4.1-10.9 4.04-5.48 12.0-18.0 37.0-51.0 80-97 140-440 0- 1 Yr 5.0-20.0 3.9-5.9 15-18 MV: 44 MV: 91 MV: 277 2-9 Yr. 6.0-17.0 3.8-5.4 11-13 MV: 37 MV: 78 MV: 300 10 Yrs. 5.0-13.0 3.8-5.4 12-15 MV: 39 MV: 80 MV: 250 NOTE: * FOR ADULT BLACK MALES AND FEMALES, NORMAL WBC IS 2.9-7.7 K/ML * FOR ADULT BLACK MALES AND FEMALES, NORMAL RBC,HGB, AND HCT IS 5% LESS SOURCE FOR DATA: Hamilton Thorne 1800 OPERATION MANUAL( AUTOMATED BLOOD COUNTS AND DIFF.) APPENDIX B-3 Tbili 0.24 mg/dL 0.0-1.2 [facility] ([facility] NORMAL RANGES Age WBC RBC HGB HCT MCV PLT Adult M 4.1-10.9 4.20-6.30 12.0-18.0 37.0-51.0 80-97 140-440 Adult F 4.1-10.9 4.04-5.48 12.0-18.0 37.0-51.0 80-97 140-440 0 -1 Yr 5.0-20.0 3.9-5.9 15-18 MV: 44 MV: 91 MV: 277 2-9 Yr. 6.0-17.0 3.8-5.4 11-13 MV: 37 MV: 78 MV: 300 10 Yrs. 5.0-13.0 3.8-5.4 12-15 MV: 39 MV: 80 MV: 250 NOTE: * FOR ADULT BLACK MALES AND FEMALES, NORMAL WBC IS 2.9-7.7 K/ML * FOR ADULT BLACK MALES AND FEMALES, NORMAL RBC,HGB, AND HCT IS 5% LESS SOURCE FOR DATA: Hamilton Thorne 1800 OPERATION MANUAL( AUTOMATED BLOOD COUNTS AND DIFF.) APPENDIX B-3 CHRONIC KIDNEY DISEASE STAGING PER NKF: MALE GFR INTERPRETATION: 20-49 YRS: >60 mL/min Normal 50-59 YRS: >56 mL/min Normal 60-69 YRS: >49 mL/min Normal 70-79 YRS: >42 mL/min Normal 80 and above >35 mL/min Normal FEMALE GRF INTERPRETATION: 20-39 YRS: >60 mL/min Normal 40-49 YRS: >58 mL/min Normal 50-59 YRS: >51 mL/min Normal 60-69 YRS: >45 mL/min Normal 70-79 YRS: >39 mL/min Normal 80 and above >32 mL/min NormalCLASSIFICATION CHOLESTEROL FOR ADULTS CHILDREN/ADOLESCENTS* DESIRABLE: <200 MG/DL <170 MG/DL BORDER-LINE HIGH RISK: 200-239 MG/DL 170-199 MG/DL HIGH RISK: >240 MG/DL >200 MG/DL CLASS. FOR PRIMARY LDL CHOL PREVENTION: LDL CHOL-CHILD/ADOLESCENTS* DESIRABLE: <130 MG/DL <110 MG/DL BORDERLINE-HIGH RISK: 130- 159 MG/DL 110-129 MG/DL HIGH RISK: >160 MG/DL >130 MG/DL *CHILDREN AND ADOLESCENTS REPRESENTS INDIVIDUALA AGED 2-19 YEARS EXCLUSIVE.NORMAL RANGES Age WBC RBC HGB HCT MCV PLT Adult M 4.1-10.9 4.20-6.30 12.0-18.0 37.0-51.0 80-97 140-440 Adult F 4.1-10.9 4.04-5.48 12.0-18.0 37.0-51.0 80-97 140-440 0- 1 Yr 5.0-20.0 3.9-5.9 15-18 MV: 44 MV: 91 MV: 277 2-9 Yr. 6.0-17.0 3.8-5.4 11-13 MV: 37 MV: 78 MV: 300 10 Yrs. 5.0-13.0 3.8-5.4 12-15 MV: 39 MV: 80 MV: 250 NOTE: * FOR ADULT BLACK MALES AND FEMALES, NORMAL WBC IS 2.9-7.7 K/ML * FOR ADULT BLACK MALES AND FEMALES, NORMAL RBC,HGB, AND HCT IS 5% LESS SOURCE FOR DATA: BORIS DYN 1800 OPERATION MANUAL( AUTOMATED BLOOD COUNTS AND DIFF.) APPENDIX B-3 Ast (Sgot) 15 U/L 0-40 [facility] ([facility] NORMAL RANGES Age WBC RBC HGB HCT MCV PLT Adult M 4.1-10.9 4.20-6.30 12.0-18.0 37.0-51.0 80-97 140-440 Adult F 4.1-10.9 4.04-5.48 12.0-18.0 37.0-51.0 80-97 140-440 0 -1 Yr 5.0-20.0 3.9-5.9 15-18 MV: 44 MV: 91 MV: 277 2-9 Yr. 6.0-17.0 3.8-5.4 11-13 MV: 37 MV: 78 MV: 300 10 Yrs. 5.0-13.0 3.8-5.4 12-15 MV: 39 MV: 80 MV: 250 NOTE: * FOR ADULT BLACK MALES AND FEMALES, NORMAL WBC IS 2.9-7.7 K/ML * FOR ADULT BLACK MALES AND FEMALES, NORMAL RBC,HGB, AND HCT IS 5% LESS SOURCE FOR DATA: BORIS DYN 1800 OPERATION MANUAL( AUTOMATED BLOOD COUNTS AND DIFF.) APPENDIX B-3 CHRONIC KIDNEY DISEASE STAGING PER NKF: MALE GFR INTERPRETATION: 20-49 YRS: >60 mL/min Normal 50-59 YRS: >56 mL/min Normal 60-69 YRS: >49 mL/min Normal 70-79 YRS: >42 mL/min Normal 80 and above >35 mL/min Normal FEMALE GRF INTERPRETATION: 20-39 YRS: >60 mL/min Normal 40-49 YRS: >58 mL/min Normal 50-59 YRS: >51 mL/min Normal 60-69 YRS: >45 mL/min Normal 70-79 YRS: >39 mL/min Normal 80 and above >32 mL/min NormalCLASSIFICATION CHOLESTEROL FOR ADULTS CHILDREN/ADOLESCENTS* DESIRABLE: <200 MG/DL <170 MG/DL BORDER-LINE HIGH RISK: 200-239 MG/DL 170-199 MG/DL HIGH RISK: >240 MG/DL >200 MG/DL CLASS. FOR PRIMARY LDL CHOL PREVENTION: LDL CHOL-CHILD/ADOLESCENTS* DESIRABLE: <130 MG/DL <110 MG/DL BORDERLINE-HIGH RISK: 130- 159 MG/DL 110-129 MG/DL HIGH RISK: >160 MG/DL >130 MG/DL *CHILDREN AND ADOLESCENTS REPRESENTS INDIVIDUALA AGED 2-19 YEARS EXCLUSIVE.NORMAL RANGES Age WBC RBC HGB HCT MCV PLT Adult M 4.1-10.9 4.20-6.30 12.0-18.0 37.0-51.0 80-97 140-440 Adult F 4.1-10.9 4.04-5.48 12.0-18.0 37.0-51.0 80-97 140-440 0- 1 Yr 5.0-20.0 3.9-5.9 15-18 MV: 44 MV: 91 MV: 277 2-9 Yr. 6.0-17.0 3.8-5.4 11-13 MV: 37 MV: 78 MV: 300 10 Yrs. 5.0-13.0 3.8-5.4 12-15 MV: 39 MV: 80 MV: 250 NOTE: * FOR ADULT BLACK MALES AND FEMALES, NORMAL WBC IS 2.9-7.7 K/ML * FOR ADULT BLACK MALES AND FEMALES, NORMAL RBC,HGB, AND HCT IS 5% LESS SOURCE FOR DATA: Hamilton Thorne 1800 OPERATION MANUAL( AUTOMATED BLOOD COUNTS AND DIFF.) APPENDIX B-3 Osmolality-Calculated 280.2 [facility] ([facility] NORMAL RANGES Age WBC RBC HGB HCT MCV PLT Adult M 4.1-10.9 4.20-6.30 12.0-18.0 37.0-51.0 80-97 140-440 Adult F 4.1-10.9 4.04-5.48 12.0-18.0 37.0-51.0 80-97 140-440 0 -1 Yr 5.0-20.0 3.9-5.9 15-18 MV: 44 MV: 91 MV: 277 2-9 Yr. 6.0-17.0 3.8-5.4 11-13 MV: 37 MV: 78 MV: 300 10 Yrs. 5.0-13.0 3.8-5.4 12-15 MV: 39 MV: 80 MV: 250 NOTE: * FOR ADULT BLACK MALES AND FEMALES, NORMAL WBC IS 2.9-7.7 K/ML * FOR ADULT BLACK MALES AND FEMALES, NORMAL RBC,HGB, AND HCT IS 5% LESS SOURCE FOR DATA: Hamilton Thorne 1800 OPERATION MANUAL( AUTOMATED BLOOD COUNTS AND DIFF.) APPENDIX B-3 CHRONIC KIDNEY DISEASE STAGING PER NKF: MALE GFR INTERPRETATION: 20-49 YRS: >60 mL/min Normal 50-59 YRS: >56 mL/min Normal 60-69 YRS: >49 mL/min Normal 70-79 YRS: >42 mL/min Normal 80 and above >35 mL/min Normal FEMALE GRF INTERPRETATION: 20-39 YRS: >60 mL/min Normal 40-49 YRS: >58 mL/min Normal 50-59 YRS: >51 mL/min Normal 60-69 YRS: >45 mL/min Normal 70-79 YRS: >39 mL/min Normal 80 and above >32 mL/min NormalCLASSIFICATION CHOLESTEROL FOR ADULTS CHILDREN/ADOLESCENTS* DESIRABLE: <200 MG/DL <170 MG/DL BORDER-LINE HIGH RISK: 200-239 MG/DL 170-199 MG/DL HIGH RISK: >240 MG/DL >200 MG/DL CLASS. FOR PRIMARY LDL CHOL PREVENTION: LDL CHOL-CHILD/ADOLESCENTS* DESIRABLE: <130 MG/DL <110 MG/DL BORDERLINE-HIGH RISK: 130- 159 MG/DL 110-129 MG/DL HIGH RISK: >160 MG/DL >130 MG/DL *CHILDREN AND ADOLESCENTS REPRESENTS INDIVIDUALA AGED 2-19 YEARS EXCLUSIVE.NORMAL RANGES Age WBC RBC HGB HCT MCV PLT Adult M 4.1-10.9 4.20-6.30 12.0-18.0 37.0-51.0 140-440 Adult F 4.1-10.9 4.04-5.48 12.0-18.0 37.0-51.0 140-440 0- 1 Yr 5.0-20.0 3.9-5.9 15-18 MV: 44 MV: 91 MV: 277 2-9 Yr. 6.0-17.0 3.8-5.4 11-13 MV: 37 MV: 78 MV: 300 10 Yrs. 5.0-13.0 3.8-5.4 12-15 MV: 39 MV: 80 MV: 250 NOTE: * FOR ADULT BLACK MALES AND FEMALES, NORMAL WBC IS 2.9-7.7 K/ML * FOR ADULT BLACK MALES AND FEMALES, NORMAL RBC,HGB, AND HCT IS 5% LESS SOURCE FOR DATA: Hamilton Thorne 1800 OPERATION MANUAL( AUTOMATED BLOOD COUNTS AND DIFF.) APPENDIX B-3 Anion Gap 15 mmol/L [facility] ([facility] NORMAL RANGES Age WBC RBC HGB HCT MCV PLT Adult M 4.1-10.9 4.20-6.30 12.0-18.0 37.0-51.0 140-440 Adult F 4.1-10.9 4.04-5.48 12.0-18.0 37.0-51.0 140-440 0 -1 Yr 5.0-20.0 3.9-5.9 15-18 MV: 44 MV: 91 MV: 277 2-9 Yr. 6.0-17.0 3.8-5.4 11-13 MV: 37 MV: 78 MV: 300 10 Yrs. 5.0-13.0 3.8-5.4 12-15 MV: 39 MV: 80 MV: 250 NOTE: * FOR ADULT BLACK MALES AND FEMALES, NORMAL WBC IS 2.9-7.7 K/ML * FOR ADULT BLACK MALES AND FEMALES, NORMAL RBC,HGB, AND HCT IS 5% LESS SOURCE FOR DATA: Hamilton Thorne 1800 OPERATION MANUAL( AUTOMATED BLOOD COUNTS AND DIFF.) APPENDIX B-3 CHRONIC KIDNEY DISEASE STAGING PER NKF: MALE GFR INTERPRETATION: 20-49 YRS: >60 mL/min Normal 50-59 YRS: >56 mL/min Normal 60-69 YRS: >49 mL/min Normal 70-79 YRS: >42 mL/min Normal 80 and above >35 mL/min Normal FEMALE GRF INTERPRETATION: 20-39 YRS: >60 mL/min Normal 40-49 YRS: >58 mL/min Normal 50-59 YRS: >51 mL/min Normal 60-69 YRS: >45 mL/min Normal 70-79 YRS: >39 mL/min Normal 80 and above >32 mL/min NormalCLASSIFICATION CHOLESTEROL FOR ADULTS CHILDREN/ADOLESCENTS* DESIRABLE: <200 MG/DL <170 MG/DL BORDER-LINE HIGH RISK: 200-239 MG/DL 170-199 MG/DL HIGH RISK: >240 MG/DL >200 MG/DL CLASS. FOR PRIMARY LDL CHOL PREVENTION: LDL CHOL-CHILD/ADOLESCENTS* DESIRABLE: <130 MG/DL <110 MG/DL BORDERLINE-HIGH RISK: 130- 159 MG/DL 110-129 MG/DL HIGH RISK: >160 MG/DL >130 MG/DL *CHILDREN AND ADOLESCENTS REPRESENTS INDIVIDUALA AGED 2-19 YEARS EXCLUSIVE.NORMAL RANGES Age WBC RBC HGB HCT MCV PLT Adult M 4.1-10.9 4.20-6.30 12.0-18.0 37.0-51.0 80-97 140-440 Adult F 4.1-10.9 4.04-5.48 12.0-18.0 37.0-51.0 80-97 140-440 0- 1 Yr 5.0-20.0 3.9-5.9 15-18 MV: 44 MV: 91 MV: 277 2-9 Yr. 6.0-17.0 3.8-5.4 11-13 MV: 37 MV: 78 MV: 300 10 Yrs. 5.0-13.0 3.8-5.4 12-15 MV: 39 MV: 80 MV: 250 NOTE: * FOR ADULT BLACK MALES AND FEMALES, NORMAL WBC IS 2.9-7.7 K/ML * FOR ADULT BLACK MALES AND FEMALES, NORMAL RBC,HGB, AND HCT IS 5% LESS SOURCE FOR DATA: Hamilton Thorne 1800 OPERATION MANUAL( AUTOMATED BLOOD COUNTS AND DIFF.) APPENDIX B-3 eGFR Non-Afr. [place] 67 # [facility] ([facility] NORMAL RANGES Age WBC RBC HGB HCT MCV PLT Adult M 4.1-10.9 4.20-6.30 12.0-18.0 37.0-51.0 80-97 140-440 Adult F 4.1-10.9 4.04-5.48 12.0-18.0 37.0-51.0 80-97 140-440 0 -1 Yr 5.0-20.0 3.9-5.9 15-18 MV: 44 MV: 91 MV: 277 2-9 Yr. 6.0-17.0 3.8-5.4 11-13 MV: 37 MV: 78 MV: 300 10 Yrs. 5.0-13.0 3.8-5.4 12-15 MV: 39 MV: 80 MV: 250 NOTE: * FOR ADULT BLACK MALES AND FEMALES, NORMAL WBC IS 2.9-7.7 K/ML * FOR ADULT BLACK MALES AND FEMALES, NORMAL RBC,HGB, AND HCT IS 5% LESS SOURCE FOR DATA: Hamilton Thorne 1800 OPERATION MANUAL( AUTOMATED BLOOD COUNTS AND DIFF.) APPENDIX B-3 CHRONIC KIDNEY DISEASE STAGING PER NKF: MALE GFR INTERPRETATION: 20-49 YRS: >60 mL/min Normal 50-59 YRS: >56 mL/min Normal 60-69 YRS: >49 mL/min Normal 70-79 YRS: >42 mL/min Normal 80 and above >35 mL/min Normal FEMALE GRF INTERPRETATION: 20-39 YRS: >60 mL/min Normal 40-49 YRS: >58 mL/min Normal 50-59 YRS: >51 mL/min Normal 60-69 YRS: >45 mL/min Normal 70-79 YRS: >39 mL/min Normal 80 and above >32 mL/min NormalCLASSIFICATION CHOLESTEROL FOR ADULTS CHILDREN/ADOLESCENTS* DESIRABLE: <200 MG/DL <170 MG/DL BORDER-LINE HIGH RISK: 200-239 MG/DL 170-199 MG/DL HIGH RISK: >240 MG/DL >200 MG/DL CLASS. FOR PRIMARY LDL CHOL PREVENTION: LDL CHOL-CHILD/ADOLESCENTS* DESIRABLE: <130 MG/DL <110 MG/DL BORDERLINE-HIGH RISK: 130- 159 MG/DL 110-129 MG/DL HIGH RISK: >160 MG/DL >130 MG/DL *CHILDREN AND ADOLESCENTS REPRESENTS INDIVIDUALA AGED 2-19 YEARS EXCLUSIVE.NORMAL RANGES Age WBC RBC HGB HCT MCV PLT Adult M 4.1-10.9 4.20-6.30 12.0-18.0 37.0-51.0 80-97 140-440 Adult F 4.1-10.9 4.04-5.48 12.0-18.0 37.0-51.0 80-97 140-440 0- 1 Yr 5.0-20.0 3.9-5.9 15-18 MV: 44 MV: 91 MV: 277 2-9 Yr. 6.0-17.0 3.8-5.4 11-13 MV: 37 MV: 78 MV: 300 10 Yrs. 5.0-13.0 3.8-5.4 12-15 MV: 39 MV: 80 MV: 250 NOTE: * FOR ADULT BLACK MALES AND FEMALES, NORMAL WBC IS 2.9-7.7 K/ML * FOR ADULT BLACK MALES AND FEMALES, NORMAL RBC,HGB, AND HCT IS 5% LESS SOURCE FOR DATA: Hamilton Thorne 1800 OPERATION MANUAL( AUTOMATED BLOOD COUNTS AND DIFF.) APPENDIX B-3 eGFR 77 # [facility] ( [facility] NORMAL RANGES Age WBC RBC HGB HCT MCV PLT Adult M 4.1-10.9 4.20-6.30 12.0-18.0 37.0-51.0 80-97 140-440 Adult F 4.1-10.9 4.04-5.48 12.0-18.0 37.0-51.0 80-97 140-440 0 -1 Yr 5.0-20.0 3.9-5.9 15-18 MV: 44 MV: 91 MV: 277 2-9 Yr. 6.0-17.0 3.8-5.4 11-13 MV: 37 MV: 78 MV: 300 10 Yrs. 5.0-13.0 3.8-5.4 12-15 MV: 39 MV: 80 MV: 250 NOTE: * FOR ADULT BLACK MALES AND FEMALES, NORMAL WBC IS 2.9-7.7 K/ML * FOR ADULT BLACK MALES AND FEMALES, NORMAL RBC,HGB, AND HCT IS 5% LESS SOURCE FOR DATA: Hamilton Thorne 1800 OPERATION MANUAL( AUTOMATED BLOOD COUNTS AND DIFF.) APPENDIX B-3 CHRONIC KIDNEY DISEASE STAGING PER NKF: MALE GFR INTERPRETATION: 20-49 YRS: >60 mL/min Normal 50-59 YRS: >56 mL/min Normal 60-69 YRS: >49 mL/min Normal 70-79 YRS: >42 mL/min Normal 80 and above >35 mL/min Normal FEMALE GRF INTERPRETATION: 20-39 YRS: >60 mL/min Normal 40-49 YRS: >58 mL/min Normal 50-59 YRS: >51 mL/min Normal 60-69 YRS: >45 mL/min Normal 70-79 YRS: >39 mL/min Normal 80 and above >32 mL/min NormalCLASSIFICATION CHOLESTEROL FOR ADULTS CHILDREN/ADOLESCENTS* DESIRABLE: <200 MG/DL <170 MG/DL BORDER-LINE HIGH RISK: 200-239 MG/DL 170-199 MG/DL HIGH RISK: >240 MG/DL >200 MG/DL CLASS. FOR PRIMARY LDL CHOL PREVENTION: LDL CHOL-CHILD/ADOLESCENTS* DESIRABLE: <130 MG/DL <110 MG/DL BORDERLINE-HIGH RISK: 130- 159 MG/DL 110-129 MG/DL HIGH RISK: >160 MG/DL >130 MG/DL *CHILDREN AND ADOLESCENTS REPRESENTS INDIVIDUALA AGED 2-19 YEARS EXCLUSIVE.NORMAL RANGES Age WBC RBC HGB HCT MCV PLT Adult M 4.1-10.9 4.20-6.30 12.0-18.0 37.0-51.0 80-97 140-440 Adult F 4.1-10.9 4.04-5.48 12.0-18.0 37.0-51.0 80-97 140-440 0- 1 Yr 5.0-20.0 3.9-5.9 15-18 MV: 44 MV: 91 MV: 277 2-9 Yr. 6.0-17.0 3.8-5.4 11-13 MV: 37 MV: 78 MV: 300 10 Yrs. 5.0-13.0 3.8-5.4 12-15 MV: 39 MV: 80 MV: 250 NOTE: * FOR ADULT BLACK MALES AND FEMALES, NORMAL WBC IS 2.9-7.7 K/ML * FOR ADULT BLACK MALES AND FEMALES, NORMAL RBC,HGB, AND HCT IS 5% LESS SOURCE FOR DATA: BORIS DYN 1800 OPERATION MANUAL( AUTOMATED BLOOD COUNTS AND DIFF.) APPENDIX B-3 ID Date Data Source [id number] 02/11/2020 03:35:00 PM EDT [facility] ([facility] Name Value Range Interpretation Code Description Data Babita rce(s) Supporting Document(s) WBC 13.8 10E3/uL 4.1-10.9 Above high normal MEDEN T ([facility] NORMAL RANGES Age WBC RBC HGB HCT MCV PLT Adult M 4.1-10.9 4.20-6.30 12.0-18.0 37.0-51.0 80-97 140-440 Adult F 4.1-10.9 4.04-5.48 12.0-18.0 37.0-51.0 80-97 140-440 0 -1 Yr 5.0-20.0 3.9-5.9 15-18 MV: 44 MV: 91 MV: 277 2-9 Yr. 6.0-17.0 3.8-5.4 11-13 MV: 37 MV: 78 MV: 300 10 Yrs. 5.0-13.0 3.8-5.4 12-15 MV: 39 MV: 80 MV: 250 NOTE: * FOR ADULT BLACK MALES AND FEMALES, NORMAL WBC IS 2.9-7.7 K/ML * FOR ADULT BLACK MALES AND FEMALES, NORMAL RBC,HGB, AND HCT IS 5% LESS SOURCE FOR DATA: Hamilton Thorne 1800 OPERATION MANUAL( AUTOMATED BLOOD COUNTS AND DIFF.) APPENDIX B-3 CHRONIC KIDNEY DISEASE STAGING PER NKF: MALE GFR INTERPRETATION: 20-49 YRS: >60 mL/min Normal 50-59 YRS: >56 mL/min Normal 60-69 YRS: >49 mL/min Normal 70-79 YRS: >42 mL/min Normal 80 and above >35 mL/min Normal FEMALE GRF INTERPRETATION: 20-39 YRS: >60 mL/min Normal 40-49 YRS: >58 mL/min Normal 50-59 YRS: >51 mL/min Normal 60-69 YRS: >45 mL/min Normal 70-79 YRS: >39 mL/min Normal 80 and above >32 mL/min NormalCLASSIFICATION CHOLESTEROL FOR ADULTS CHILDREN/ADOLESCENTS* DESIRABLE: <200 MG/DL <170 MG/DL BORDER-LINE HIGH RISK: 200-239 MG/DL 170-199 MG/DL HIGH RISK: >240 MG/DL >200 MG/DL CLASS. FOR PRIMARY LDL CHOL PREVENTION: LDL CHOL-CHILD/ADOLESCENTS* DESIRABLE: <130 MG/DL <110 MG/DL BORDERLINE-HIGH RISK: 130- 159 MG/DL 110-129 MG/DL HIGH RISK: >160 MG/DL >130 MG/DL *CHILDREN AND ADOLESCENTS REPRESENTS INDIVIDUALA AGED 2-19 YEARS EXCLUSIVE.NORMAL RANGES Age WBC RBC HGB HCT MCV PLT Adult M 4.1-10.9 4.20-6.30 12.0-18.0 37.0-51.0 80-97 140-440 Adult F 4.1-10.9 4.04-5.48 12.0-18.0 37.0-51.0 80-97 140-440 0- 1 Yr 5.0-20.0 3.9-5.9 15-18 MV: 44 MV: 91 MV: 277 2-9 Yr. 6.0-17.0 3.8-5.4 11-13 MV: 37 MV: 78 MV: 300 10 Yrs. 5.0-13.0 3.8-5.4 12-15 MV: 39 MV: 80 MV: 250 NOTE: * FOR ADULT BLACK MALES AND FEMALES, NORMAL WBC IS 2.9-7.7 K/ML * FOR ADULT BLACK MALES AND FEMALES, NORMAL RBC,HGB, AND HCT IS 5% LESS SOURCE FOR DATA: BORIS DYN 1800 OPERATION MANUAL( AUTOMATED BLOOD COUNTS AND DIFF.) APPENDIX B-3 RBC 4.48 10E6/uL 4.20-6.30 [facility] NORMAL RANGES Age WBC RBC HGB HCT MCV PLT Adult M 4.1-10.9 4.20-6.30 12.0-18.0 37.0-51.0 80-97 140-440 Adult F 4.1-10.9 4.04-5.48 12.0-18.0 37.0-51.0 80-97 140-440 0 -1 Yr 5.0-20.0 3.9-5.9 15-18 MV: 44 MV: 91 MV: 277 2-9 Yr. 6.0-17.0 3.8-5.4 11-13 MV: 37 MV: 78 MV: 300 10 Yrs. 5.0-13.0 3.8-5.4 12-15 MV: 39 MV: 80 MV: 250 NOTE: * FOR ADULT BLACK MALES AND FEMALES, NORMAL WBC IS 2.9-7.7 K/ML * FOR ADULT BLACK MALES AND FEMALES, NORMAL RBC,HGB, AND HCT IS 5% LESS SOURCE FOR DATA: Hamilton Thorne 1800 OPERATION MANUAL( AUTOMATED BLOOD COUNTS AND DIFF.) APPENDIX B-3 CHRONIC KIDNEY DISEASE STAGING PER NKF: MALE GFR INTERPRETATION: 20-49 YRS: >60 mL/min Normal 50-59 YRS: >56 mL/min Normal 60-69 YRS: >49 mL/min Normal 70-79 YRS: >42 mL/min Normal 80 and above >35 mL/min Normal FEMALE GRF INTERPRETATION: 20-39 YRS: >60 mL/min Normal 40-49 YRS: >58 mL/min Normal 50-59 YRS: >51 mL/min Normal 60-69 YRS: >45 mL/min Normal 70-79 YRS: >39 mL/min Normal 80 and above >32 mL/min NormalCLASSIFICATION CHOLESTEROL FOR ADULTS CHILDREN/ADOLESCENTS* DESIRABLE: <200 MG/DL <170 MG/DL BORDER-LINE HIGH RISK: 200-239 MG/DL 170-199 MG/DL HIGH RISK: >240 MG/DL >200 MG/DL CLASS. FOR PRIMARY LDL CHOL PREVENTION: LDL CHOL-CHILD/ADOLESCENTS* DESIRABLE: <130 MG/DL <110 MG/DL BORDERLINE-HIGH RISK: 130- 159 MG/DL 110-129 MG/DL HIGH RISK: >160 MG/DL >130 MG/DL *CHILDREN AND ADOLESCENTS REPRESENTS INDIVIDUALA AGED 2-19 YEARS EXCLUSIVE.NORMAL RANGES Age WBC RBC HGB HCT MCV PLT Adult M 4.1-10.9 4.20-6.30 12.0-18.0 37.0-51.0 80-97 140-440 Adult F 4.1-10.9 4.04-5.48 12.0-18.0 37.0-51.0 80-97 140-440 0- 1 Yr 5.0-20.0 3.9-5.9 15-18 MV: 44 MV: 91 MV: 277 2-9 Yr. 6.0-17.0 3.8-5.4 11-13 MV: 37 MV: 78 MV: 300 10 Yrs. 5.0-13.0 3.8-5.4 12-15 MV: 39 MV: 80 MV: 250 NOTE: * FOR ADULT BLACK MALES AND FEMALES, NORMAL WBC IS 2.9-7.7 K/ML * FOR ADULT BLACK MALES AND FEMALES, NORMAL RBC,HGB, AND HCT IS 5% LESS SOURCE FOR DATA: eVigilo DYN 1800 OPERATION MANUAL( AUTOMATED BLOOD COUNTS AND DIFF.) APPENDIX B-3 HGB 14.4 g/dL 12.0-18.0 [facility] ([facility] NORMAL RANGES Age WBC RBC HGB HCT MCV PLT Adult M 4.1-10.9 4.20-6.30 12.0-18.0 37.0-51.0 80-97 140-440 Adult F 4.1-10.9 4.04-5.48 12.0-18.0 37.0-51.0 80-97 140-440 0 -1 Yr 5.0-20.0 3.9-5.9 15-18 MV: 44 MV: 91 MV: 277 2-9 Yr. 6.0-17.0 3.8-5.4 11-13 MV: 37 MV: 78 MV: 300 10 Yrs. 5.0-13.0 3.8-5.4 12-15 MV: 39 MV: 80 MV: 250 NOTE: * FOR ADULT BLACK MALES AND FEMALES, NORMAL WBC IS 2.9-7.7 K/ML * FOR ADULT BLACK MALES AND FEMALES, NORMAL RBC,HGB, AND HCT IS 5% LESS SOURCE FOR DATA: BORIS DYN 1800 OPERATION MANUAL( AUTOMATED BLOOD COUNTS AND DIFF.) APPENDIX B-3 CHRONIC KIDNEY DISEASE STAGING PER NKF: MALE GFR INTERPRETATION: 20-49 YRS: >60 mL/min Normal 50-59 YRS: >56 mL/min Normal 60-69 YRS: >49 mL/min Normal 70-79 YRS: >42 mL/min Normal 80 and above >35 mL/min Normal FEMALE GRF INTERPRETATION: 20-39 YRS: >60 mL/min Normal 40-49 YRS: >58 mL/min Normal 50-59 YRS: >51 mL/min Normal 60-69 YRS: >45 mL/min Normal 70-79 YRS: >39 mL/min Normal 80 and above >32 mL/min NormalCLASSIFICATION CHOLESTEROL FOR ADULTS CHILDREN/ADOLESCENTS* DESIRABLE: <200 MG/DL <170 MG/DL BORDER-LINE HIGH RISK: 200-239 MG/DL 170-199 MG/DL HIGH RISK: >240 MG/DL >200 MG/DL CLASS. FOR PRIMARY LDL CHOL PREVENTION: LDL CHOL-CHILD/ADOLESCENTS* DESIRABLE: <130 MG/DL <110 MG/DL BORDERLINE-HIGH RISK: 130- 159 MG/DL 110-129 MG/DL HIGH RISK: >160 MG/DL >130 MG/DL *CHILDREN AND ADOLESCENTS REPRESENTS INDIVIDUALA AGED 2-19 YEARS EXCLUSIVE.NORMAL RANGES Age WBC RBC HGB HCT MCV PLT Adult M 4.1-10.9 4.20-6.30 12.0-18.0 37.0-51.0 80-97 140-440 Adult F 4.1-10.9 4.04-5.48 12.0-18.0 37.0-51.0 80-97 140-440 0- 1 Yr 5.0-20.0 3.9-5.9 15-18 MV: 44 MV: 91 MV: 277 2-9 Yr. 6.0-17.0 3.8-5.4 11-13 MV: 37 MV: 78 MV: 300 10 Yrs. 5.0-13.0 3.8-5.4 12-15 MV: 39 MV: 80 MV: 250 NOTE: * FOR ADULT BLACK MALES AND FEMALES, NORMAL WBC IS 2.9-7.7 K/ML * FOR ADULT BLACK MALES AND FEMALES, NORMAL RBC,HGB, AND HCT IS 5% LESS SOURCE FOR DATA: Hamilton Thorne 1800 OPERATION MANUAL( AUTOMATED BLOOD COUNTS AND DIFF.) APPENDIX B-3 HCT 43.9 % 37.0-51.0 [facility] NORMAL RANGES Age WBC RBC HGB HCT MCV PLT Adult M 4.1-10.9 4.20-6.30 12.0-18.0 37.0-51.0 80-97 140-440 Adult F 4.1-10.9 4.04-5.48 12.0-18.0 37.0-51.0 80-97 140-440 0 -1 Yr 5.0-20.0 3.9-5.9 15-18 MV: 44 MV: 91 MV: 277 2-9 Yr. 6.0-17.0 3.8-5.4 11-13 MV: 37 MV: 78 MV: 300 10 Yrs. 5.0-13.0 3.8-5.4 12-15 MV: 39 MV: 80 MV: 250 NOTE: * FOR ADULT BLACK MALES AND FEMALES, NORMAL WBC IS 2.9-7.7 K/ML * FOR ADULT BLACK MALES AND FEMALES, NORMAL RBC,HGB, AND HCT IS 5% LESS SOURCE FOR DATA: eVigilo DYN 1800 OPERATION MANUAL( AUTOMATED BLOOD COUNTS AND DIFF.) APPENDIX B-3 CHRONIC KIDNEY DISEASE STAGING PER NKF: MALE GFR INTERPRETATION: 20-49 YRS: >60 mL/min Normal 50-59 YRS: >56 mL/min Normal 60-69 YRS: >49 mL/min Normal 70-79 YRS: >42 mL/min Normal 80 and above >35 mL/min Normal FEMALE GRF INTERPRETATION: 20-39 YRS: >60 mL/min Normal 40-49 YRS: >58 mL/min Normal 50-59 YRS: >51 mL/min Normal 60-69 YRS: >45 mL/min Normal 70-79 YRS: >39 mL/min Normal 80 and above >32 mL/min NormalCLASSIFICATION CHOLESTEROL FOR ADULTS CHILDREN/ADOLESCENTS* DESIRABLE: <200 MG/DL <170 MG/DL BORDER-LINE HIGH RISK: 200-239 MG/DL 170-199 MG/DL HIGH RISK: >240 MG/DL >200 MG/DL CLASS. FOR PRIMARY LDL CHOL PREVENTION: LDL CHOL-CHILD/ADOLESCENTS* DESIRABLE: <130 MG/DL <110 MG/DL BORDERLINE-HIGH RISK: 130- 159 MG/DL 110-129 MG/DL HIGH RISK: >160 MG/DL >130 MG/DL *CHILDREN AND ADOLESCENTS REPRESENTS INDIVIDUALA AGED 2-19 YEARS EXCLUSIVE.NORMAL RANGES Age WBC RBC HGB HCT MCV PLT Adult M 4.1-10.9 4.20-6.30 12.0-18.0 37.0-51.0 80- 140-440 Adult F 4.1-10.9 4.04-5.48 12.0-18.0 37.0-51.0 80 140-440 0- 1 Yr 5.0-20.0 3.9-5.9 15-18 MV: 44 MV: 91 MV: 277 2-9 Yr. 6.0-17.0 3.8-5.4 11-13 MV: 37 MV: 78 MV: 300 10 Yrs. 5.0-13.0 3.8-5.4 12-15 MV: 39 MV: 80 MV: 250 NOTE: * FOR ADULT BLACK MALES AND FEMALES, NORMAL WBC IS 2.9-7.7 K/ML * FOR ADULT BLACK MALES AND FEMALES, NORMAL RBC,HGB, AND HCT IS 5% LESS SOURCE FOR DATA: Hamilton Thorne 1800 OPERATION MANUAL( AUTOMATED BLOOD COUNTS AND DIFF.) APPENDIX B-3 MCV 98.0 fL 80.0-97.0 Above high normal [facility] NORMAL RANGES Age WBC RBC HGB HCT MCV PLT Adult M 4.1-10.9 4.20-6.30 12.0-18.0 37.0-51.0 80 140-440 Adult F 4.1-10.9 4.04-5.48 12.0-18.0 37.0-51.0 80 140-440 0 -1 Yr 5.0-20.0 3.9-5.9 15-18 MV: 44 MV: 91 MV: 277 2-9 Yr. 6.0-17.0 3.8-5.4 11-13 MV: 37 MV: 78 MV: 300 10 Yrs. 5.0-13.0 3.8-5.4 12-15 MV: 39 MV: 80 MV: 250 NOTE: * FOR ADULT BLACK MALES AND FEMALES, NORMAL WBC IS 2.9-7.7 K/ML * FOR ADULT BLACK MALES AND FEMALES, NORMAL RBC,HGB, AND HCT IS 5% LESS SOURCE FOR DATA: Hamilton Thorne 1800 OPERATION MANUAL( AUTOMATED BLOOD COUNTS AND DIFF.) APPENDIX B-3 CHRONIC KIDNEY DISEASE STAGING PER NKF: MALE GFR INTERPRETATION: 20-49 YRS: >60 mL/min Normal 50-59 YRS: >56 mL/min Normal 60-69 YRS: >49 mL/min Normal 70-79 YRS: >42 mL/min Normal 80 and above >35 mL/min Normal FEMALE GRF INTERPRETATION: 20-39 YRS: >60 mL/min Normal 40-49 YRS: >58 mL/min Normal 50-59 YRS: >51 mL/min Normal 60-69 YRS: >45 mL/min Normal 70-79 YRS: >39 mL/min Normal 80 and above >32 mL/min NormalCLASSIFICATION CHOLESTEROL FOR ADULTS CHILDREN/ADOLESCENTS* DESIRABLE: <200 MG/DL <170 MG/DL BORDER-LINE HIGH RISK: 200-239 MG/DL 170-199 MG/DL HIGH RISK: >240 MG/DL >200 MG/DL CLASS. FOR PRIMARY LDL CHOL PREVENTION: LDL CHOL-CHILD/ADOLESCENTS* DESIRABLE: <130 MG/DL <110 MG/DL BORDERLINE-HIGH RISK: 130- 159 MG/DL 110-129 MG/DL HIGH RISK: >160 MG/DL >130 MG/DL *CHILDREN AND ADOLESCENTS REPRESENTS INDIVIDUALA AGED 2-19 YEARS EXCLUSIVE.NORMAL RANGES Age WBC RBC HGB HCT MCV PLT Adult M 4.1-10.9 4.20-6.30 12.0-18.0 37.0-51.0 80-97 140-440 Adult F 4.1-10.9 4.04-5.48 12.0-18.0 37.0-51.0 80-97 140-440 0- 1 Yr 5.0-20.0 3.9-5.9 15-18 MV: 44 MV: 91 MV: 277 2-9 Yr. 6.0-17.0 3.8-5.4 11-13 MV: 37 MV: 78 MV: 300 10 Yrs. 5.0-13.0 3.8-5.4 12-15 MV: 39 MV: 80 MV: 250 NOTE: * FOR ADULT BLACK MALES AND FEMALES, NORMAL WBC IS 2.9-7.7 K/ML * FOR ADULT BLACK MALES AND FEMALES, NORMAL RBC,HGB, AND HCT IS 5% LESS SOURCE FOR DATA: Hamilton Thorne 1800 OPERATION MANUAL( AUTOMATED BLOOD COUNTS AND DIFF.) APPENDIX B-3 MCH 32.1 pg 26.0-32.0 Above high normal [facility] ([facility] NORMAL RANGES Age WBC RBC HGB HCT MCV PLT Adult M 4.1-10.9 4.20-6.30 12.0-18.0 37.0-51.0 80-97 140-440 Adult F 4.1-10.9 4.04-5.48 12.0-18.0 37.0-51.0 80-97 140-440 0 -1 Yr 5.0-20.0 3.9-5.9 15-18 MV: 44 MV: 91 MV: 277 2-9 Yr. 6.0-17.0 3.8-5.4 11-13 MV: 37 MV: 78 MV: 300 10 Yrs. 5.0-13.0 3.8-5.4 12-15 MV: 39 MV: 80 MV: 250 NOTE: * FOR ADULT BLACK MALES AND FEMALES, NORMAL WBC IS 2.9-7.7 K/ML * FOR ADULT BLACK MALES AND FEMALES, NORMAL RBC,HGB, AND HCT IS 5% LESS SOURCE FOR DATA: Hamilton Thorne 1800 OPERATION MANUAL( AUTOMATED BLOOD COUNTS AND DIFF.) APPENDIX B-3 CHRONIC KIDNEY DISEASE STAGING PER NKF: MALE GFR INTERPRETATION: 20-49 YRS: >60 mL/min Normal 50-59 YRS: >56 mL/min Normal 60-69 YRS: >49 mL/min Normal 70-79 YRS: >42 mL/min Normal 80 and above >35 mL/min Normal FEMALE GRF INTERPRETATION: 20-39 YRS: >60 mL/min Normal 40-49 YRS: >58 mL/min Normal 50-59 YRS: >51 mL/min Normal 60-69 YRS: >45 mL/min Normal 70-79 YRS: >39 mL/min Normal 80 and above >32 mL/min NormalCLASSIFICATION CHOLESTEROL FOR ADULTS CHILDREN/ADOLESCENTS* DESIRABLE: <200 MG/DL <170 MG/DL BORDER-LINE HIGH RISK: 200-239 MG/DL 170-199 MG/DL HIGH RISK: >240 MG/DL >200 MG/DL CLASS. FOR PRIMARY LDL CHOL PREVENTION: LDL CHOL-CHILD/ADOLESCENTS* DESIRABLE: <130 MG/DL <110 MG/DL BORDERLINE-HIGH RISK: 130- 159 MG/DL 110-129 MG/DL HIGH RISK: >160 MG/DL >130 MG/DL *CHILDREN AND ADOLESCENTS REPRESENTS INDIVIDUALA AGED 2-19 YEARS EXCLUSIVE.NORMAL RANGES Age WBC RBC HGB HCT MCV PLT Adult M 4.1-10.9 4.20-6.30 12.0-18.0 37.0-51.0 80-97 140-440 Adult F 4.1-10.9 4.04-5.48 12.0-18.0 37.0-51.0 80-97 140-440 0- 1 Yr 5.0-20.0 3.9-5.9 15-18 MV: 44 MV: 91 MV: 277 2-9 Yr. 6.0-17.0 3.8-5.4 11-13 MV: 37 MV: 78 MV: 300 10 Yrs. 5.0-13.0 3.8-5.4 12-15 MV: 39 MV: 80 MV: 250 NOTE: * FOR ADULT BLACK MALES AND FEMALES, NORMAL WBC IS 2.9-7.7 K/ML * FOR ADULT BLACK MALES AND FEMALES, NORMAL RBC,HGB, AND HCT IS 5% LESS SOURCE FOR DATA: BORIS DYN 1800 OPERATION MANUAL( AUTOMATED BLOOD COUNTS AND DIFF.) APPENDIX B-3 MCHC 32.8 g/dL 31.0-36.0 [facility] ([facility] NORMAL RANGES Age WBC RBC HGB HCT MCV PLT Adult M 4.1-10.9 4.20-6.30 12.0-18.0 37.0-51.0 80-97 140-440 Adult F 4.1-10.9 4.04-5.48 12.0-18.0 37.0-51.0 80-97 140-440 0 -1 Yr 5.0-20.0 3.9-5.9 15-18 MV: 44 MV: 91 MV: 277 2-9 Yr. 6.0-17.0 3.8-5.4 11-13 MV: 37 MV: 78 MV: 300 10 Yrs. 5.0-13.0 3.8-5.4 12-15 MV: 39 MV: 80 MV: 250 NOTE: * FOR ADULT BLACK MALES AND FEMALES, NORMAL WBC IS 2.9-7.7 K/ML * FOR ADULT BLACK MALES AND FEMALES, NORMAL RBC,HGB, AND HCT IS 5% LESS SOURCE FOR DATA: Hamilton Thorne 1800 OPERATION MANUAL( AUTOMATED BLOOD COUNTS AND DIFF.) APPENDIX B-3 CHRONIC KIDNEY DISEASE STAGING PER NKF: MALE GFR INTERPRETATION: 20-49 YRS: >60 mL/min Normal 50-59 YRS: >56 mL/min Normal 60-69 YRS: >49 mL/min Normal 70-79 YRS: >42 mL/min Normal 80 and above >35 mL/min Normal FEMALE GRF INTERPRETATION: 20-39 YRS: >60 mL/min Normal 40-49 YRS: >58 mL/min Normal 50-59 YRS: >51 mL/min Normal 60-69 YRS: >45 mL/min Normal 70-79 YRS: >39 mL/min Normal 80 and above >32 mL/min NormalCLASSIFICATION CHOLESTEROL FOR ADULTS CHILDREN/ADOLESCENTS* DESIRABLE: <200 MG/DL <170 MG/DL BORDER-LINE HIGH RISK: 200-239 MG/DL 170-199 MG/DL HIGH RISK: >240 MG/DL >200 MG/DL CLASS. FOR PRIMARY LDL CHOL PREVENTION: LDL CHOL-CHILD/ADOLESCENTS* DESIRABLE: <130 MG/DL <110 MG/DL BORDERLINE-HIGH RISK: 130- 159 MG/DL 110-129 MG/DL HIGH RISK: >160 MG/DL >130 MG/DL *CHILDREN AND ADOLESCENTS REPRESENTS INDIVIDUALA AGED 2-19 YEARS EXCLUSIVE.NORMAL RANGES Age WBC RBC HGB HCT MCV PLT Adult M 4.1-10.9 4.20-6.30 12.0-18.0 37.0-51.0 80-97 140-440 Adult F 4.1-10.9 4.04-5.48 12.0-18.0 37.0-51.0 80-97 140-440 0- 1 Yr 5.0-20.0 3.9-5.9 15-18 MV: 44 MV: 91 MV: 277 2-9 Yr. 6.0-17.0 3.8-5.4 11-13 MV: 37 MV: 78 MV: 300 10 Yrs. 5.0-13.0 3.8-5.4 12-15 MV: 39 MV: 80 MV: 250 NOTE: * FOR ADULT BLACK MALES AND FEMALES, NORMAL WBC IS 2.9-7.7 K/ML * FOR ADULT BLACK MALES AND FEMALES, NORMAL RBC,HGB, AND HCT IS 5% LESS SOURCE FOR DATA: BORIS DYN 1800 OPERATION MANUAL( AUTOMATED BLOOD COUNTS AND DIFF.) APPENDIX B-3 PLT 356 10E3/uL 140-440 [facility] ([facility] NORMAL RANGES Age WBC RBC HGB HCT MCV PLT Adult M 4.1-10.9 4.20-6.30 12.0-18.0 37.0-51.0 80-97 140-440 Adult F 4.1-10.9 4.04-5.48 12.0-18.0 37.0-51.0 80-97 140-440 0 -1 Yr 5.0-20.0 3.9-5.9 15-18 MV: 44 MV: 91 MV: 277 2-9 Yr. 6.0-17.0 3.8-5.4 11-13 MV: 37 MV: 78 MV: 300 10 Yrs. 5.0-13.0 3.8-5.4 12-15 MV: 39 MV: 80 MV: 250 NOTE: * FOR ADULT BLACK MALES AND FEMALES, NORMAL WBC IS 2.9-7.7 K/ML * FOR ADULT BLACK MALES AND FEMALES, NORMAL RBC,HGB, AND HCT IS 5% LESS SOURCE FOR DATA: Hamilton Thorne 1800 OPERATION MANUAL( AUTOMATED BLOOD COUNTS AND DIFF.) APPENDIX B-3 CHRONIC KIDNEY DISEASE STAGING PER NKF: MALE GFR INTERPRETATION: 20-49 YRS: >60 mL/min Normal 50-59 YRS: >56 mL/min Normal 60-69 YRS: >49 mL/min Normal 70-79 YRS: >42 mL/min Normal 80 and above >35 mL/min Normal FEMALE GRF INTERPRETATION: 20-39 YRS: >60 mL/min Normal 40-49 YRS: >58 mL/min Normal 50-59 YRS: >51 mL/min Normal 60-69 YRS: >45 mL/min Normal 70-79 YRS: >39 mL/min Normal 80 and above >32 mL/min NormalCLASSIFICATION CHOLESTEROL FOR ADULTS CHILDREN/ADOLESCENTS* DESIRABLE: <200 MG/DL <170 MG/DL BORDER-LINE HIGH RISK: 200-239 MG/DL 170-199 MG/DL HIGH RISK: >240 MG/DL >200 MG/DL CLASS. FOR PRIMARY LDL CHOL PREVENTION: LDL CHOL-CHILD/ADOLESCENTS* DESIRABLE: <130 MG/DL <110 MG/DL BORDERLINE-HIGH RISK: 130- 159 MG/DL 110-129 MG/DL HIGH RISK: >160 MG/DL >130 MG/DL *CHILDREN AND ADOLESCENTS REPRESENTS INDIVIDUALA AGED 2-19 YEARS EXCLUSIVE.NORMAL RANGES Age WBC RBC HGB HCT MCV PLT Adult M 4.1-10.9 4.20-6.30 12.0-18.0 37.0-51.0 80-97 140-440 Adult F 4.1-10.9 4.04-5.48 12.0-18.0 37.0-51.0 80-97 140-440 0- 1 Yr 5.0-20.0 3.9-5.9 15-18 MV: 44 MV: 91 MV: 277 2-9 Yr. 6.0-17.0 3.8-5.4 11-13 MV: 37 MV: 78 MV: 300 10 Yrs. 5.0-13.0 3.8-5.4 12-15 MV: 39 MV: 80 MV: 250 NOTE: * FOR ADULT BLACK MALES AND FEMALES, NORMAL WBC IS 2.9-7.7 K/ML * FOR ADULT BLACK MALES AND FEMALES, NORMAL RBC,HGB, AND HCT IS 5% LESS SOURCE FOR DATA: Hamilton Thorne 1800 OPERATION MANUAL( AUTOMATED BLOOD COUNTS AND DIFF.) APPENDIX B-3 RDW-CV 13.8 % 11.5-14.5 [facility] NORMAL RANGES Age WBC RBC HGB HCT MCV PLT Adult M 4.1-10.9 4.20-6.30 12.0-18.0 37.0-51.0 80-97 140-440 Adult F 4.1-10.9 4.04-5.48 12.0-18.0 37.0-51.0 80-97 140-440 0 -1 Yr 5.0-20.0 3.9-5.9 15-18 MV: 44 MV: 91 MV: 277 2-9 Yr. 6.0-17.0 3.8-5.4 11-13 MV: 37 MV: 78 MV: 300 10 Yrs. 5.0-13.0 3.8-5.4 12-15 MV: 39 MV: 80 MV: 250 NOTE: * FOR ADULT BLACK MALES AND FEMALES, NORMAL WBC IS 2.9-7.7 K/ML * FOR ADULT BLACK MALES AND FEMALES, NORMAL RBC,HGB, AND HCT IS 5% LESS SOURCE FOR DATA: Hamilton Thorne 1800 OPERATION MANUAL( AUTOMATED BLOOD COUNTS AND DIFF.) APPENDIX B-3 CHRONIC KIDNEY DISEASE STAGING PER NKF: MALE GFR INTERPRETATION: 20-49 YRS: >60 mL/min Normal 50-59 YRS: >56 mL/min Normal 60-69 YRS: >49 mL/min Normal 70-79 YRS: >42 mL/min Normal 80 and above >35 mL/min Normal FEMALE GRF INTERPRETATION: 20-39 YRS: >60 mL/min Normal 40-49 YRS: >58 mL/min Normal 50-59 YRS: >51 mL/min Normal 60-69 YRS: >45 mL/min Normal 70-79 YRS: >39 mL/min Normal 80 and above >32 mL/min NormalCLASSIFICATION CHOLESTEROL FOR ADULTS CHILDREN/ADOLESCENTS* DESIRABLE: <200 MG/DL <170 MG/DL BORDER-LINE HIGH RISK: 200-239 MG/DL 170-199 MG/DL HIGH RISK: >240 MG/DL >200 MG/DL CLASS. FOR PRIMARY LDL CHOL PREVENTION: LDL CHOL-CHILD/ADOLESCENTS* DESIRABLE: <130 MG/DL <110 MG/DL BORDERLINE-HIGH RISK: 130- 159 MG/DL 110-129 MG/DL HIGH RISK: >160 MG/DL >130 MG/DL *CHILDREN AND ADOLESCENTS REPRESENTS INDIVIDUALA AGED 2-19 YEARS EXCLUSIVE.NORMAL RANGES Age WBC RBC HGB HCT MCV PLT Adult M 4.1-10.9 4.20-6.30 12.0-18.0 37.0-51.0 80-97 140-440 Adult F 4.1-10.9 4.04-5.48 12.0-18.0 37.0-51.0 80-97 140-440 0- 1 Yr 5.0-20.0 3.9-5.9 15-18 MV: 44 MV: 91 MV: 277 2-9 Yr. 6.0-17.0 3.8-5.4 11-13 MV: 37 MV: 78 MV: 300 10 Yrs. 5.0-13.0 3.8-5.4 12-15 MV: 39 MV: 80 MV: 250 NOTE: * FOR ADULT BLACK MALES AND FEMALES, NORMAL WBC IS 2.9-7.7 K/ML * FOR ADULT BLACK MALES AND FEMALES, NORMAL RBC,HGB, AND HCT IS 5% LESS SOURCE FOR DATA: BORIS DYN 1800 OPERATION MANUAL( AUTOMATED BLOOD COUNTS AND DIFF.) APPENDIX B-3 MXD% 6.4 % 0.1-24.0 [facility] ([facility] NORMAL RANGES Age WBC RBC HGB HCT MCV PLT Adult M 4.1-10.9 4.20-6.30 12.0-18.0 37.0-51.0 80-97 140-440 Adult F 4.1-10.9 4.04-5.48 12.0-18.0 37.0-51.0 80-97 140-440 0 -1 Yr 5.0-20.0 3.9-5.9 15-18 MV: 44 MV: 91 MV: 277 2-9 Yr. 6.0-17.0 3.8-5.4 11-13 MV: 37 MV: 78 MV: 300 10 Yrs. 5.0-13.0 3.8-5.4 12-15 MV: 39 MV: 80 MV: 250 NOTE: * FOR ADULT BLACK MALES AND FEMALES, NORMAL WBC IS 2.9-7.7 K/ML * FOR ADULT BLACK MALES AND FEMALES, NORMAL RBC,HGB, AND HCT IS 5% LESS SOURCE FOR DATA: BORIS DYN 1800 OPERATION MANUAL( AUTOMATED BLOOD COUNTS AND DIFF.) APPENDIX B-3 CHRONIC KIDNEY DISEASE STAGING PER NKF: MALE GFR INTERPRETATION: 20-49 YRS: >60 mL/min Normal 50-59 YRS: >56 mL/min Normal 60-69 YRS: >49 mL/min Normal 70-79 YRS: >42 mL/min Normal 80 and above >35 mL/min Normal FEMALE GRF INTERPRETATION: 20-39 YRS: >60 mL/min Normal 40-49 YRS: >58 mL/min Normal 50-59 YRS: >51 mL/min Normal 60-69 YRS: >45 mL/min Normal 70-79 YRS: >39 mL/min Normal 80 and above >32 mL/min NormalCLASSIFICATION CHOLESTEROL FOR ADULTS CHILDREN/ADOLESCENTS* DESIRABLE: <200 MG/DL <170 MG/DL BORDER-LINE HIGH RISK: 200-239 MG/DL 170-199 MG/DL HIGH RISK: >240 MG/DL >200 MG/DL CLASS. FOR PRIMARY LDL CHOL PREVENTION: LDL CHOL-CHILD/ADOLESCENTS* DESIRABLE: <130 MG/DL <110 MG/DL BORDERLINE-HIGH RISK: 130- 159 MG/DL 110-129 MG/DL HIGH RISK: >160 MG/DL >130 MG/DL *CHILDREN AND ADOLESCENTS REPRESENTS INDIVIDUALA AGED 2-19 YEARS EXCLUSIVE.NORMAL RANGES Age WBC RBC HGB HCT MCV PLT Adult M 4.1-10.9 4.20-6.30 12.0-18.0 37.0-51.0 80-97 140-440 Adult F 4.1-10.9 4.04-5.48 12.0-18.0 37.0-51.0 80-97 140-440 0- 1 Yr 5.0-20.0 3.9-5.9 15-18 MV: 44 MV: 91 MV: 277 2-9 Yr. 6.0-17.0 3.8-5.4 11-13 MV: 37 MV: 78 MV: 300 10 Yrs. 5.0-13.0 3.8-5.4 12-15 MV: 39 MV: 80 MV: 250 NOTE: * FOR ADULT BLACK MALES AND FEMALES, NORMAL WBC IS 2.9-7.7 K/ML * FOR ADULT BLACK MALES AND FEMALES, NORMAL RBC,HGB, AND HCT IS 5% LESS SOURCE FOR DATA: BORIS DYN 1800 OPERATION MANUAL( AUTOMATED BLOOD COUNTS AND DIFF.) APPENDIX B-3 Lym% 12.3 % 10.0-58.5 [facility] ([facility] NORMAL RANGES Age WBC RBC HGB HCT MCV PLT Adult M 4.1-10.9 4.20-6.30 12.0-18.0 37.0-51.0 80-97 140-440 Adult F 4.1-10.9 4.04-5.48 12.0-18.0 37.0-51.0 80-97 140-440 0 -1 Yr 5.0-20.0 3.9-5.9 15-18 MV: 44 MV: 91 MV: 277 2-9 Yr. 6.0-17.0 3.8-5.4 11-13 MV: 37 MV: 78 MV: 300 10 Yrs. 5.0-13.0 3.8-5.4 12-15 MV: 39 MV: 80 MV: 250 NOTE: * FOR ADULT BLACK MALES AND FEMALES, NORMAL WBC IS 2.9-7.7 K/ML * FOR ADULT BLACK MALES AND FEMALES, NORMAL RBC,HGB, AND HCT IS 5% LESS SOURCE FOR DATA: eVigilo DYN 1800 OPERATION MANUAL( AUTOMATED BLOOD COUNTS AND DIFF.) APPENDIX B-3 CHRONIC KIDNEY DISEASE STAGING PER NKF: MALE GFR INTERPRETATION: 20-49 YRS: >60 mL/min Normal 50-59 YRS: >56 mL/min Normal 60-69 YRS: >49 mL/min Normal 70-79 YRS: >42 mL/min Normal 80 and above >35 mL/min Normal FEMALE GRF INTERPRETATION: 20-39 YRS: >60 mL/min Normal 40-49 YRS: >58 mL/min Normal 50-59 YRS: >51 mL/min Normal 60-69 YRS: >45 mL/min Normal 70-79 YRS: >39 mL/min Normal 80 and above >32 mL/min NormalCLASSIFICATION CHOLESTEROL FOR ADULTS CHILDREN/ADOLESCENTS* DESIRABLE: <200 MG/DL <170 MG/DL BORDER-LINE HIGH RISK: 200-239 MG/DL 170-199 MG/DL HIGH RISK: >240 MG/DL >200 MG/DL CLASS. FOR PRIMARY LDL CHOL PREVENTION: LDL CHOL-CHILD/ADOLESCENTS* DESIRABLE: <130 MG/DL <110 MG/DL BORDERLINE-HIGH RISK: 130- 159 MG/DL 110-129 MG/DL HIGH RISK: >160 MG/DL >130 MG/DL *CHILDREN AND ADOLESCENTS REPRESENTS INDIVIDUALA AGED 2-19 YEARS EXCLUSIVE.NORMAL RANGES Age WBC RBC HGB HCT MCV PLT Adult M 4.1-10.9 4.20-6.30 12.0-18.0 37.0-51.0 80-97 140-440 Adult F 4.1-10.9 4.04-5.48 12.0-18.0 37.0-51.0 140440 0- 1 Yr 5.0-20.0 3.9-5.9 15-18 MV: 44 MV: 91 MV: 277 2-9 Yr. 6.0-17.0 3.8-5.4 11-13 MV: 37 MV: 78 MV: 300 10 Yrs. 5.0-13.0 3.8-5.4 12-15 MV: 39 MV: 80 MV: 250 NOTE: * FOR ADULT BLACK MALES AND FEMALES, NORMAL WBC IS 2.9-7.7 K/ML * FOR ADULT BLACK MALES AND FEMALES, NORMAL RBC,HGB, AND HCT IS 5% LESS SOURCE FOR DATA: Hamilton Thorne 1800 OPERATION MANUAL( AUTOMATED BLOOD COUNTS AND DIFF.) APPENDIX B-3 Neut% 81.3 % 37.0-92.0 [facility] NORMAL RANGES Age WBC RBC HGB HCT MCV PLT Adult M 4.1-10.9 4.20-6.30 12.0-18.0 37.0-51.0 140440 Adult F 4.1-10.9 4.04-5.48 12.0-18.0 37.0-51.0 140440 0 -1 Yr 5.0-20.0 3.9-5.9 15-18 MV: 44 MV: 91 MV: 277 2-9 Yr. 6.0-17.0 3.8-5.4 11-13 MV: 37 MV: 78 MV: 300 10 Yrs. 5.0-13.0 3.8-5.4 12-15 MV: 39 MV: 80 MV: 250 NOTE: * FOR ADULT BLACK MALES AND FEMALES, NORMAL WBC IS 2.9-7.7 K/ML * FOR ADULT BLACK MALES AND FEMALES, NORMAL RBC,HGB, AND HCT IS 5% LESS SOURCE FOR DATA: eVigilo DYN 1800 OPERATION MANUAL( AUTOMATED BLOOD COUNTS AND DIFF.) APPENDIX B-3 CHRONIC KIDNEY DISEASE STAGING PER NKF: MALE GFR INTERPRETATION: 20-49 YRS: >60 mL/min Normal 50-59 YRS: >56 mL/min Normal 60-69 YRS: >49 mL/min Normal 70-79 YRS: >42 mL/min Normal 80 and above >35 mL/min Normal FEMALE GRF INTERPRETATION: 20-39 YRS: >60 mL/min Normal 40-49 YRS: >58 mL/min Normal 50-59 YRS: >51 mL/min Normal 60-69 YRS: >45 mL/min Normal 70-79 YRS: >39 mL/min Normal 80 and above >32 mL/min NormalCLASSIFICATION CHOLESTEROL FOR ADULTS CHILDREN/ADOLESCENTS* DESIRABLE: <200 MG/DL <170 MG/DL BORDER-LINE HIGH RISK: 200-239 MG/DL 170-199 MG/DL HIGH RISK: >240 MG/DL >200 MG/DL CLASS. FOR PRIMARY LDL CHOL PREVENTION: LDL CHOL-CHILD/ADOLESCENTS* DESIRABLE: <130 MG/DL <110 MG/DL BORDERLINE-HIGH RISK: 130- 159 MG/DL 110-129 MG/DL HIGH RISK: >160 MG/DL >130 MG/DL *CHILDREN AND ADOLESCENTS REPRESENTS INDIVIDUALA AGED 2-19 YEARS EXCLUSIVE.NORMAL RANGES Age WBC RBC HGB HCT MCV PLT Adult M 4.1-10.9 4.20-6.30 12.0-18.0 37.0-51.0 80-97 140-440 Adult F 4.1-10.9 4.04-5.48 12.0-18.0 37.0-51.0 80-97 140-440 0- 1 Yr 5.0-20.0 3.9-5.9 15-18 MV: 44 MV: 91 MV: 277 2-9 Yr. 6.0-17.0 3.8-5.4 11-13 MV: 37 MV: 78 MV: 300 10 Yrs. 5.0-13.0 3.8-5.4 12-15 MV: 39 MV: 80 MV: 250 NOTE: * FOR ADULT BLACK MALES AND FEMALES, NORMAL WBC IS 2.9-7.7 K/ML * FOR ADULT BLACK MALES AND FEMALES, NORMAL RBC,HGB, AND HCT IS 5% LESS SOURCE FOR DATA: Hamilton Thorne 1800 OPERATION MANUAL( AUTOMATED BLOOD COUNTS AND DIFF.) APPENDIX B-3 Lym# 1.7 10E3/uL 0.6-4.1 [facility] ([facility] NORMAL RANGES Age WBC RBC HGB HCT MCV PLT Adult M 4.1-10.9 4.20-6.30 12.0-18.0 37.0-51.0 80-97 140-440 Adult F 4.1-10.9 4.04-5.48 12.0-18.0 37.0-51.0 80-97 140-440 0 -1 Yr 5.0-20.0 3.9-5.9 15-18 MV: 44 MV: 91 MV: 277 2-9 Yr. 6.0-17.0 3.8-5.4 11-13 MV: 37 MV: 78 MV: 300 10 Yrs. 5.0-13.0 3.8-5.4 12-15 MV: 39 MV: 80 MV: 250 NOTE: * FOR ADULT BLACK MALES AND FEMALES, NORMAL WBC IS 2.9-7.7 K/ML * FOR ADULT BLACK MALES AND FEMALES, NORMAL RBC,HGB, AND HCT IS 5% LESS SOURCE FOR DATA: Hamilton Thorne 1800 OPERATION MANUAL( AUTOMATED BLOOD COUNTS AND DIFF.) APPENDIX B-3 CHRONIC KIDNEY DISEASE STAGING PER NKF: MALE GFR INTERPRETATION: 20-49 YRS: >60 mL/min Normal 50-59 YRS: >56 mL/min Normal 60-69 YRS: >49 mL/min Normal 70-79 YRS: >42 mL/min Normal 80 and above >35 mL/min Normal FEMALE GRF INTERPRETATION: 20-39 YRS: >60 mL/min Normal 40-49 YRS: >58 mL/min Normal 50-59 YRS: >51 mL/min Normal 60-69 YRS: >45 mL/min Normal 70-79 YRS: >39 mL/min Normal 80 and above >32 mL/min NormalCLASSIFICATION CHOLESTEROL FOR ADULTS CHILDREN/ADOLESCENTS* DESIRABLE: <200 MG/DL <170 MG/DL BORDER-LINE HIGH RISK: 200-239 MG/DL 170-199 MG/DL HIGH RISK: >240 MG/DL >200 MG/DL CLASS. FOR PRIMARY LDL CHOL PREVENTION: LDL CHOL-CHILD/ADOLESCENTS* DESIRABLE: <130 MG/DL <110 MG/DL BORDERLINE-HIGH RISK: 130- 159 MG/DL 110-129 MG/DL HIGH RISK: >160 MG/DL >130 MG/DL *CHILDREN AND ADOLESCENTS REPRESENTS INDIVIDUALA AGED 2-19 YEARS EXCLUSIVE.NORMAL RANGES Age WBC RBC HGB HCT MCV PLT Adult M 4.1-10.9 4.20-6.30 12.0-18.0 37.0-51.0 80-97 140-440 Adult F 4.1-10.9 4.04-5.48 12.0-18.0 37.0-51.0 80-97 140-440 0- 1 Yr 5.0-20.0 3.9-5.9 15-18 MV: 44 MV: 91 MV: 277 2-9 Yr. 6.0-17.0 3.8-5.4 11-13 MV: 37 MV: 78 MV: 300 10 Yrs. 5.0-13.0 3.8-5.4 12-15 MV: 39 MV: 80 MV: 250 NOTE: * FOR ADULT BLACK MALES AND FEMALES, NORMAL WBC IS 2.9-7.7 K/ML * FOR ADULT BLACK MALES AND FEMALES, NORMAL RBC,HGB, AND HCT IS 5% LESS SOURCE FOR DATA: eVigilo DYN 1800 OPERATION MANUAL( AUTOMATED BLOOD COUNTS AND DIFF.) APPENDIX B-3 MXD# 0.9 10E3/uL 0.0-1.8 [facility] ([facility] NORMAL RANGES Age WBC RBC HGB HCT MCV PLT Adult M 4.1-10.9 4.20-6.30 12.0-18.0 37.0-51.0 80-97 140-440 Adult F 4.1-10.9 4.04-5.48 12.0-18.0 37.0-51.0 80-97 140-440 0 -1 Yr 5.0-20.0 3.9-5.9 15-18 MV: 44 MV: 91 MV: 277 2-9 Yr. 6.0-17.0 3.8-5.4 11-13 MV: 37 MV: 78 MV: 300 10 Yrs. 5.0-13.0 3.8-5.4 12-15 MV: 39 MV: 80 MV: 250 NOTE: * FOR ADULT BLACK MALES AND FEMALES, NORMAL WBC IS 2.9-7.7 K/ML * FOR ADULT BLACK MALES AND FEMALES, NORMAL RBC,HGB, AND HCT IS 5% LESS SOURCE FOR DATA: Hamilton Thorne 1800 OPERATION MANUAL( AUTOMATED BLOOD COUNTS AND DIFF.) APPENDIX B-3 CHRONIC KIDNEY DISEASE STAGING PER NKF: MALE GFR INTERPRETATION: 20-49 YRS: >60 mL/min Normal 50-59 YRS: >56 mL/min Normal 60-69 YRS: >49 mL/min Normal 70-79 YRS: >42 mL/min Normal 80 and above >35 mL/min Normal FEMALE GRF INTERPRETATION: 20-39 YRS: >60 mL/min Normal 40-49 YRS: >58 mL/min Normal 50-59 YRS: >51 mL/min Normal 60-69 YRS: >45 mL/min Normal 70-79 YRS: >39 mL/min Normal 80 and above >32 mL/min NormalCLASSIFICATION CHOLESTEROL FOR ADULTS CHILDREN/ADOLESCENTS* DESIRABLE: <200 MG/DL <170 MG/DL BORDER-LINE HIGH RISK: 200-239 MG/DL 170-199 MG/DL HIGH RISK: >240 MG/DL >200 MG/DL CLASS. FOR PRIMARY LDL CHOL PREVENTION: LDL CHOL-CHILD/ADOLESCENTS* DESIRABLE: <130 MG/DL <110 MG/DL BORDERLINE-HIGH RISK: 130- 159 MG/DL 110-129 MG/DL HIGH RISK: >160 MG/DL >130 MG/DL *CHILDREN AND ADOLESCENTS REPRESENTS INDIVIDUALA AGED 2-19 YEARS EXCLUSIVE.NORMAL RANGES Age WBC RBC HGB HCT MCV PLT Adult M 4.1-10.9 4.20-6.30 12.0-18.0 37.0-51.0 80-97 140-440 Adult F 4.1-10.9 4.04-5.48 12.0-18.0 37.0-51.0 80-97 140-440 0- 1 Yr 5.0-20.0 3.9-5.9 15-18 MV: 44 MV: 91 MV: 277 2-9 Yr. 6.0-17.0 3.8-5.4 11-13 MV: 37 MV: 78 MV: 300 10 Yrs. 5.0-13.0 3.8-5.4 12-15 MV: 39 MV: 80 MV: 250 NOTE: * FOR ADULT BLACK MALES AND FEMALES, NORMAL WBC IS 2.9-7.7 K/ML * FOR ADULT BLACK MALES AND FEMALES, NORMAL RBC,HGB, AND HCT IS 5% LESS SOURCE FOR DATA: BORIS DYN 1800 OPERATION MANUAL( AUTOMATED BLOOD COUNTS AND DIFF.) APPENDIX B-3 Neut# 11.2 % 2.0-7.8 Above high normal [facility] NORMAL RANGES Age WBC RBC HGB HCT MCV PLT Adult M 4.1-10.9 4.20-6.30 12.0-18.0 37.0-51.0 80-97 140-440 Adult F 4.1-10.9 4.04-5.48 12.0-18.0 37.0-51.0 80-97 140-440 0 -1 Yr 5.0-20.0 3.9-5.9 15-18 MV: 44 MV: 91 MV: 277 2-9 Yr. 6.0-17.0 3.8-5.4 11-13 MV: 37 MV: 78 MV: 300 10 Yrs. 5.0-13.0 3.8-5.4 12-15 MV: 39 MV: 80 MV: 250 NOTE: * FOR ADULT BLACK MALES AND FEMALES, NORMAL WBC IS 2.9-7.7 K/ML * FOR ADULT BLACK MALES AND FEMALES, NORMAL RBC,HGB, AND HCT IS 5% LESS SOURCE FOR DATA: Hamilton Thorne 1800 OPERATION MANUAL( AUTOMATED BLOOD COUNTS AND DIFF.) APPENDIX B-3 CHRONIC KIDNEY DISEASE STAGING PER NKF: MALE GFR INTERPRETATION: 20-49 YRS: >60 mL/min Normal 50-59 YRS: >56 mL/min Normal 60-69 YRS: >49 mL/min Normal 70-79 YRS: >42 mL/min Normal 80 and above >35 mL/min Normal FEMALE GRF INTERPRETATION: 20-39 YRS: >60 mL/min Normal 40-49 YRS: >58 mL/min Normal 50-59 YRS: >51 mL/min Normal 60-69 YRS: >45 mL/min Normal 70-79 YRS: >39 mL/min Normal 80 and above >32 mL/min NormalCLASSIFICATION CHOLESTEROL FOR ADULTS CHILDREN/ADOLESCENTS* DESIRABLE: <200 MG/DL <170 MG/DL BORDER-LINE HIGH RISK: 200-239 MG/DL 170-199 MG/DL HIGH RISK: >240 MG/DL >200 MG/DL CLASS. FOR PRIMARY LDL CHOL PREVENTION: LDL CHOL-CHILD/ADOLESCENTS* DESIRABLE: <130 MG/DL <110 MG/DL BORDERLINE-HIGH RISK: 130- 159 MG/DL 110-129 MG/DL HIGH RISK: >160 MG/DL >130 MG/DL *CHILDREN AND ADOLESCENTS REPRESENTS INDIVIDUALA AGED 2-19 YEARS EXCLUSIVE.NORMAL RANGES Age WBC RBC HGB HCT MCV PLT Adult M 4.1-10.9 4.20-6.30 12.0-18.0 37.0-51.0 80-97 140-440 Adult F 4.1-10.9 4.04-5.48 12.0-18.0 37.0-51.0 80-97 140-440 0- 1 Yr 5.0-20.0 3.9-5.9 15-18 MV: 44 MV: 91 MV: 277 2-9 Yr. 6.0-17.0 3.8-5.4 11-13 MV: 37 MV: 78 MV: 300 10 Yrs. 5.0-13.0 3.8-5.4 12-15 MV: 39 MV: 80 MV: 250 NOTE: * FOR ADULT BLACK MALES AND FEMALES, NORMAL WBC IS 2.9-7.7 K/ML * FOR ADULT BLACK MALES AND FEMALES, NORMAL RBC,HGB, AND HCT IS 5% LESS SOURCE FOR DATA: BORIS DYN 1800 OPERATION MANUAL( AUTOMATED BLOOD COUNTS AND DIFF.) APPENDIX B-3 MPV 10.4 fL 9.0-13.0 [facility] ([facility] NORMAL RANGES Age WBC RBC HGB HCT MCV PLT Adult M 4.1-10.9 4.20-6.30 12.0-18.0 37.0-51.0 80-97 140-440 Adult F 4.1-10.9 4.04-5.48 12.0-18.0 37.0-51.0 80-97 140-440 0 -1 Yr 5.0-20.0 3.9-5.9 15-18 MV: 44 MV: 91 MV: 277 2-9 Yr. 6.0-17.0 3.8-5.4 11-13 MV: 37 MV: 78 MV: 300 10 Yrs. 5.0-13.0 3.8-5.4 12-15 MV: 39 MV: 80 MV: 250 NOTE: * FOR ADULT BLACK MALES AND FEMALES, NORMAL WBC IS 2.9-7.7 K/ML * FOR ADULT BLACK MALES AND FEMALES, NORMAL RBC,HGB, AND HCT IS 5% LESS SOURCE FOR DATA: Hamilton Thorne 1800 OPERATION MANUAL( AUTOMATED BLOOD COUNTS AND DIFF.) APPENDIX B-3 CHRONIC KIDNEY DISEASE STAGING PER NKF: MALE GFR INTERPRETATION: 20-49 YRS: >60 mL/min Normal 50-59 YRS: >56 mL/min Normal 60-69 YRS: >49 mL/min Normal 70-79 YRS: >42 mL/min Normal 80 and above >35 mL/min Normal FEMALE GRF INTERPRETATION: 20-39 YRS: >60 mL/min Normal 40-49 YRS: >58 mL/min Normal 50-59 YRS: >51 mL/min Normal 60-69 YRS: >45 mL/min Normal 70-79 YRS: >39 mL/min Normal 80 and above >32 mL/min NormalCLASSIFICATION CHOLESTEROL FOR ADULTS CHILDREN/ADOLESCENTS* DESIRABLE: <200 MG/DL <170 MG/DL BORDER-LINE HIGH RISK: 200-239 MG/DL 170-199 MG/DL HIGH RISK: >240 MG/DL >200 MG/DL CLASS. FOR PRIMARY LDL CHOL PREVENTION: LDL CHOL-CHILD/ADOLESCENTS* DESIRABLE: <130 MG/DL <110 MG/DL BORDERLINE-HIGH RISK: 130- 159 MG/DL 110-129 MG/DL HIGH RISK: >160 MG/DL >130 MG/DL *CHILDREN AND ADOLESCENTS REPRESENTS INDIVIDUALA AGED 2-19 YEARS EXCLUSIVE.NORMAL RANGES Age WBC RBC HGB HCT MCV PLT Adult M 4.1-10.9 4.20-6.30 12.0-18.0 37.0-51.0 80-97 140-440 Adult F 4.1-10.9 4.04-5.48 12.0-18.0 37.0-51.0 80-97 140-440 0- 1 Yr 5.0-20.0 3.9-5.9 15-18 MV: 44 MV: 91 MV: 277 2-9 Yr. 6.0-17.0 3.8-5.4 11-13 MV: 37 MV: 78 MV: 300 10 Yrs. 5.0-13.0 3.8-5.4 12-15 MV: 39 MV: 80 MV: 250 NOTE: * FOR ADULT BLACK MALES AND FEMALES, NORMAL WBC IS 2.9-7.7 K/ML * FOR ADULT BLACK MALES AND FEMALES, NORMAL RBC,HGB, AND HCT IS 5% LESS SOURCE FOR DATA: [facility]ORIS DYN 1800 OPERATION MANUAL( AUTOMATED BLOOD COUNTS AND DIFF.) APPENDIX B-3 Procedure Social History Code Duration Value Status Description Data Source(s ) Smoking 03/14/2021 12:00:00 AM EDT Former Smoker completed Former Smoker [email or web address] ([facility]) Smoking 01/25/2021 12:00:00 AM EDT Former Smoker completed Former Smoker eCW1 ([facility]) Smoking 01/25/2021 12:00:00 AM EDT Former Smoker completed Former Smoker eCW1 ([facility]) Smoking 01/25/2021 12:00:00 AM EDT Former Smoker completed Former Smoker eCW1 ([facility]) Alcohol intake 01/11/2021 12:00:00 AM EDT Current non-d luz maria of alcohol (finding) completed Current non-drinker of alcohol (finding) [facility] Tobacco use and exposure 01/11/2021 12:00:00 AM EDT Never used co mpleted Never used [facility] Smoking 01/11/2021 12:00:00 AM EDT Former smoker completed Former smoker [facility] Smoking 12/24/2020 12:00:00 AM EDT - 08/03/2012 12:00:00 AM EST Patient is a former smoker completed Patient is a former smoker ALVINA ([facility] ) Smoking 12/10/2020 12:00:00 AM EDT Former Smoker completed Former Smoker eCW1 ([facility]) Smoking 12/10/2020 12:00:00 AM EDT Former Smoker completed Former Smoker eCW1 ([facility]) Smoking 12/10/2020 12:00:00 AM EDT Former Smoker completed Former Smoker eCW1 ([facility]) Smoking 12/10/2020 12:00:00 AM EDT Former Smoker completed Former Smoker eCW1 ([facility]) Smoking 12/10/2020 12:00:00 AM EDT Former Smoker completed Former Smoker eCW1 ([facility]) Smoking 12/10/2020 12:00:00 AM EDT Former Smoker completed Former Smoker eCW1 ([facility]) Smoking 12/10/2020 12:00:00 AM EDT Former Smoker completed Former Smoker eCW1 ([facility]) Smoking 11/05/2020 12:00:00 AM EDT Former Smoker completed Former Smoker eCW1 ([facility]) Smoking 11/05/2020 12:00:00 AM EDT Former Smoker completed Former Smoker eCW1 ([facility]) Smoking 11/05/2020 12:00:00 AM EDT Former Smoker completed Former Smoker eCW1 ([facility]) Smoking 11/05/2020 12:00:00 AM EDT Former Smoker completed Former Smoker eCW1 ([facility]) Smoking 11/05/2020 12:00:00 AM EDT Former Smoker completed Former Smoker eCW1 ([facility]) Smoking 11/05/2020 12:00:00 AM EDT Former Smoker completed Former Smoker eCW1 ([facility]) Smoking 10/02/2020 12:00:00 AM EDT Former Smoker completed Former Smoker eCW1 ([facility]) Smoking 10/02/2020 12:00:00 AM EDT Former Smoker completed Former Smoker eCW1 ([facility]) Smoking 10/02/2020 12:00:00 AM EDT Former Smoker completed Former Smoker eCW1 ([facility]) Smoking 10/02/2020 12:00:00 AM EDT Former Smoker completed Former Smoker eCW1 ([facility]) Smoking 10/02/2020 12:00:00 AM EDT Former Smoker completed Former Smoker eCW1 ([facility]) Smoking 10/02/2020 12:00:00 AM EDT Former Smoker completed Former Smoker eCW1 ([facility]) Smoking 08/11/2020 12:00:00 AM EDT Patient is a former smoker completed Patient is a former smoker ALVINA ([facility] ) Vital Signs ID Date Data Source UNK Name Value Range Interpretation Code Description Data Source(s) Body height 60 [in_i] 60 [in_i] ALVINA (Ziggy Cleveland MD) 5'0" Body weight 113.00 [lb_av] 113.00 [lb_av] MEDEN T (Ziggy Cleveland MD) Body mass index (BMI) [Ratio] 22.1 kg/m2 22.1 k g/m2 MEDENT (Ziggy Cleveland MD) Body temperature 97.3 [degF] 97.3 [degF] MEDENT (Ziggy Cleveland MD) Systolic blood pressure 111 mm[Hg] 111 mm[Hg] M EDENT (Ziggy Cleveland MD) Diastolic blood pressure 75 mm[Hg] 75 mm[Hg] MEDENT (Ziggy Cleveland MD) Heart rate 91 /min 91 /min MEDENT (Ziggy Cleveland MD) Oxygen saturation in Arterial blood by Pulse oximetry 99 % 99 % MEDENT (Ziggy Cleveland MD) @ 2L Body height 60 [in_i] 60 [in_i] MEDENT (Ziggy Cleveland MD) 5'0" Body weight 114.00 [lb_av] 114.00 [lb_av] MEDEN T (Ziggy Cleveland MD) Body mass index (BMI) [Ratio] 22.3 kg/m2 22.3 k g/m2 MEDENT (Ziggy Cleveland MD) Body temperature 93.0 [degF] 93.0 [degF] MEDENT (Ziggy Cleveland MD) Systolic blood pressure 128 mm[Hg] 128 mm[Hg] M EDENT (Ziggy Cleveland MD) Diastolic blood pressure 90 mm[Hg] 90 mm[Hg] MEDENT (Ziggy Cleveland MD) Heart rate 93 /min 93 /min MEDENT (Ziggy Cleveland MD) Oxygen saturation in Arterial blood by Pulse oximetry 97 % 97 % MEDENT (Ziggy Cleveland MD) 2l Body mass index (BMI) [Ratio] 22.3 kg/m2 22.3 k g/m2 MEDENT (Ziggy Cleveland MD) Body temperature 93.0 [degF] 93.0 [degF] MEDENT (Ziggy Cleveland MD) Systolic blood pressure 128 mm[Hg] 128 mm[Hg] M EDENT (Ziggy Cleveland MD) Diastolic blood pressure 90 mm[Hg] 90 mm[Hg] MEDENT (Ziggy Cleveland MD) Heart rate 93 /min 93 /min MEDENT (Ziggy Cleveland MD) Oxygen saturation in Arterial blood by Pulse oximetry 97 % 97 % MEDENT (Ziggy Cleveland MD) 2l Body weight 115 [lb_av] 115 [lb_av] eCW1 ([facility]) Body height 62 [in_i] 62 [in_i] eCW1 ([facility]) Body mass index (BMI) [Ratio] 21.03 kg/m2 21.03 kg/m2 W1 ([facility]) Heart rate 67 /min 67 /min eCW1 ([facility]) Respiratory rate 20 /min 20 /min eCW1 ([facility]) Body temperature 96.7 [degF] 96.7 [degF] eCW1 ( [facility]) Systolic blood pressure 92 mm[Hg] 92 mm[Hg] e CW1 ([facility]) Diastolic blood pressure 58 mm[Hg] 58 mm[Hg] eCW1 ([facility]) Systolic blood pressure 118 mm[Hg] 118 mm[Hg] M EDENT ([facility], ) Diastolic blood pressure 70 mm[Hg] 70 mm[Hg] MEDENT ([facility], ) Heart rate 78 /min 78 /min MEDENT ([facility], ) Oxygen saturation in Arterial blood by Pulse oximetry 98 % 98 % MEDYUE ([facility], ) Room Air Body weight 116.00 [lb_av] 116.00 [lb_av] MEDEN T ([facility], ) Body weight 52.618 kg 52.618 kg MEDENT ([facility], ) Body weight 122 [lb_av] 122 [lb_av] eCW1 ([facility]) Body height 62 [in_i] 62 [in_i] eCW1 ([facility]) Body mass index (BMI) [Ratio] 22.31 kg/m2 22.31 kg/m2 W1 ([facility]) Heart rate 92 /min 92 /min eCW1 ([facility]) Respiratory rate 18 /min 18 /min eCW1 ([facility]) Body temperature 97.2 [degF] 97.2 [degF] eCW1 ( [facility]) Systolic blood pressure 110 mm[Hg] 110 mm[Hg] e CW1 ([facility]) Diastolic blood pressure 68 mm[Hg] 68 mm[Hg] eCW1 ([facility]) Body temperature 98.1 [degF] 98.1 [degF] [facility] Body temperature 98.1 [degF] 98.1 [degF] [facility] ([facility]) Oxygen saturation in Arterial blood by Pulse oximetry 99 % 99 % [facility] ([facility]) Respiratory rate 18 /min 18 /min [facility] ( [facility]) Body temperature 98.7 [degF] 98.7 [degF] [facility] ([facility]) Body height 60 [in_i] 60 [in_i] [facility] ([facility]) 5'0" Body weight 123.00 [lb_av] 123.00 [lb_av] MEDEN T ([facility]) Body mass index (BMI) [Ratio] 24.0 kg/m2 24.0 k g/m2 [facility] ([facility]) [place] body weight 100 [lb_av] 100 [lb_av] MEDEN T ([facility]) Body weight 55.793 kg 55.793 kg [facility] ([facility]) Body surface area Derived from formula 1.52 m2 1.52 m2 [facility] ([facility]) Body height 60 [in_i] 60 [in_i] [facility] ([facility]) 5'0" Body temperature 98.7 [degF] 98.7 [degF] [facility] ([facility]) Body weight 123.00 [lb_av] 123.00 [lb_av] MEDEN T ([facility]) Body mass index (BMI) [Ratio] 24.0 kg/m2 24.0 k g/m2 [facility], ) Oxygen saturation in Arterial blood by Pulse oximetry 99 % 99 % [facility] ([facility]) Respiratory rate 18 /min 18 /min [facility] ( [facility]) Systolic blood pressure 147 mm[Hg] 147 mm[Hg] M EDENT ([facility]) Diastolic blood pressure 80 mm[Hg] 80 mm[Hg] MEDENT ([facility]) [place] body weight 100 [lb_av] 100 [lb_av] MEDEN T ([facility]) Heart rate 76 /min 76 /min [facility] ([facility]) Body weight 55.793 kg 55.793 kg [facility] ([facility]) Body surface area Derived from formula 1.52 m2 1.52 m2 [facility] ([facility]) Body weight 127 [lb_av] 127 [lb_av] eCW1 ([facility]) Body height 62 [in_i] 62 [in_i] eCW1 ([facility]) Body mass index (BMI) [Ratio] 23.23 kg/m2 23.23 kg/m2 eCW1 ([facility]) Heart rate 74 /min 74 /min eCW1 ([facility]) Respiratory rate 18 /min 18 /min eCW1 ([facility]) Body temperature 97.3 [degF] 97.3 [degF] eCW1 ( [facility]) Systolic blood pressure 120 mm[Hg] 120 mm[Hg] e CW1 ([facility]) Diastolic blood pressure 80 mm[Hg] 80 mm[Hg] eCW1 ([facility]) Systolic blood pressure 160 mm[Hg] 160 mm[Hg] M EDENT ([facility], ) Diastolic blood pressure 90 mm[Hg] 90 mm[Hg] [facility] ([facility], ) Heart rate 74 /min 74 /min [facility] ([facility]) Oxygen saturation in Arterial blood by Pulse oximetry 93 % 93 % [facility] ([facility]) Room Air Body height 60 [in_i] 60 [in_i] MEDENT ([facility]) 5'0" [place] body weight 100 [lb_av] 100 [lb_av] MEDEN T ([facility]) Body weight 57.154 kg 57.154 kg MEDENT ([facility]) Body surface area Derived from formula 1.53 m2 1.53 m2 MEDENT ([facility]) Body weight 126.00 [lb_av] 126.00 [lb_av] MEDEN T ([facility]) Body mass index (BMI) [Ratio] 24.6 kg/m2 24.6 k g/m2 MEDENT ([facility]) Systolic blood pressure 128 mm[Hg] 128 mm[Hg] M EDENT ([facility] Diastolic blood pressure 88 mm[Hg] 88 mm[Hg] MEDENT ([facility] Body temperature 96.9 [degF] 96.9 [degF] MEDENT ([facility] Heart rate 80 /min 80 /min MEDENT ([facility] Respiratory rate 16 /min 16 /min MEDENT ( [facility] Body height 60 [in_i] 60 [in_i] MEDENT ([facility] 5'0" Body weight 128.00 [lb_av] 128.00 [lb_av] MEDEN T ([facility] [place] body weight 100 [lb_av] 100 [lb_av] MEDEN T ([facility] Body mass index (BMI) [Ratio] 25.0 kg/m2 25.0 k g/m2 MEDENT ([facility] Oxygen saturation in Arterial blood by Pulse oximetry 97 % 97 % MEDENT ([facility] Respiratory rate 16 /min 16 /min MEDENT ( [facility] Body height 60 [in_i] 60 [in_i] MEDENT ([facility] 5'0" Diastolic blood pressure 88 mm[Hg] 88 mm[Hg] MEDENT ([facility] Systolic blood pressure 126 mm[Hg] 126 mm[Hg] M EDENT ([facility] Body temperature 97.3 [degF] 97.3 [degF] MEDENT ([facility] Heart rate 68 /min 68 /min MEDENT ([facility] Body weight 130.00 [lb_av] 130.00 [lb_av] MEDEN T ([facility] Dra[place] body weight 100 [lb_av] 100 [lb_av] MEDEN T ([facility] Body mass index (BMI) [Ratio] 25.4 kg/m2 25.4 k g/m2 MEDENT ([facility] Oxygen saturation in Arterial blood by Pulse oximetry 95 % 95 % MEDENT ([facility] Body weight 132.00 [lb_av] 132.00 [lb_av] MEDEN T ([facility] Body mass index (BMI) [Ratio] 25.8 kg/m2 25.8 k g/m2 MEDENT ([facility] Systolic blood pressure 134 mm[Hg] 134 mm[Hg] M EDENT ([facility] Body temperature 97.7 [degF] 97.7 [degF] MEDENT ([facility] Diastolic blood pressure 90 mm[Hg] 90 mm[Hg] MEDENT ([facility] Heart rate 66 /min 66 /min MEDENT ([facility] Oxygen saturation in Arterial blood by Pulse oximetry 97 % 97 % MEDENT ([facility] Respiratory rate 16 /min 16 /min MEDENT ( [facility] Body height 60 [in_i] 60 [in_i] MEDENT ([facility] 5'0" [place] body weight 100 [lb_av] 100 [lb_av] MEDEN T ([facility] Body weight 132.00 [lb_av] 132.00 [lb_av] MEDEN T ([facility] Dra[place] body weight 100 [lb_av] 100 [lb_av] MEDEN T ([facility] Systolic blood pressure 124 mm[Hg] 124 mm[Hg] M EDENT ([facility] Diastolic blood pressure 84 mm[Hg] 84 mm[Hg] MEDENT ([facility] Body temperature 98.3 [degF] 98.3 [degF] RAYNEENT ([facility] Heart rate 84 /min 84 /min MEDENT ([facility] Respiratory rate 16 /min 16 /min MEDYUE ( [facility] Body height 60 [in_i] 60 [in_i] ALVINA ([facility] 5'0" Body mass index (BMI) [Ratio] 25.8 kg/m2 25.8 k g/m2 ALVINA ([facility] Oxygen saturation in Arterial blood by Pulse oximetry 97 % 97 % ALVINA ([facility] Patient Treatment Plan of Care Planned Activity Planned Date Details Description Data Source (s) Amlodipine 5 MG Oral Tablet 02/04/2021 12:00:00 AM EDT eCW1 ([facility]) Amlodipine 5 MG Oral Tablet 02/04/2021 12:00:00 AM EDT eCW1 ([facility]) Amlodipine 5 MG Oral Tablet 02/04/2021 12:00:00 AM EDT eCW1 ([facility]) Blood Pressure Cuff - 01/25/2021 12:00:00 AM EDT eCW1 ([facility]) Blood Pressure Cuff - 01/25/2021 12:00:00 AM EDT eCW1 ([facility]) Blood Pressure Cuff - 01/25/2021 12:00:00 AM EDT eCW1 ([facility]) Blood Pressure Cuff - 01/25/2021 12:00:00 AM EDT eCW1 ([facility]) Prednisone 5 MG Oral Tablet 01/18/2021 12:00:00 AM EDT eCW1 ([facility]) Nystatin 847379 UNT/ML Oral Suspension 12/07/2020 12:00:00 AM EDT eCW1 ([facility]) Nystatin [id number] UNT/ML Oral Suspension 12/07/2020 12:00:00 AM EDT eCW1 ([facility]) Nystatin [id number] UNT/ML Oral Suspension 12/07/2020 12:00:00 AM EDT eCW1 ([facility]) Acetaminophen 325 MG / Hydrocodone Bitartrate 5 MG Ora l Tablet 11/05/2020 12:00:00 AM EDT eCW1 ([facility]) Acetaminophen 325 MG / Hydrocodone Bitartrate 5 MG Ora l Tablet 11/05/2020 12:00:00 AM EDT eCW1 ([facility]) Acetaminophen 325 MG / Hydrocodone Bitartrate 5 MG Ora l Tablet 11/05/2020 12:00:00 AM EDT eCW1 ([facility])
[2021-03-31] MEDS ORDERED: SODIUM CHLORIDE 0.9% INJ 10 ML SYR IV PRN (09:05)
--- OUTSIDE RECORDS SUMMARY | 2021-03-31 09:45 | CCD ---
Author Author [facility] Organization [facility] Address Unknown Phone Unavailable Care Team Providers Care Division Head Name Role Phone Sameer, Ludivina Paiz MD [...] A Chencho MD Unavailable Unavailable Sameer, A Cehncho MD Unavailable Unavailable Sameer, A Chencho MD [...] Syl Ramirez MD Unavailable Unavailable Mollison, Syl Ramirze MD Unavailable Unavailable Mollison, Syl Ramirez MD [...] Unavailable Giovanni GALLOWAY MD Unavailable Unavailable Giovanni GALLOAWY MD Unavailable Unavailable Giovanni GALLOWAY MD Unavailable [...] Unavailable Unavailable Joanne Box MD Unavailable Unavailable Jonane Box MD Unavailable Unavailable Joanne Box MD [...] Unavailable Unavailable Conrad RIVERA MD Unavailable Unavailable Tomás Lemon MD Unavailable [...] is protected by Article 27-F of the [facility] Public Health law. If you continue you may have access to information: Regarding HIV / AIDS; Provided by facilities licensed or operated by the [facility] Office of Mental Health; or Provided by the [facility] Office for People With Developmental Disabilities. If such information is present, then the following [facility] mandated warning applies: This information has been [...] law may result in a fine or [place] health care facility sentence or both. A general authorization for the release of medical or other information is NOT sufficient authorization for further disc losure. Allergies and Adverse Reactions Type Description Substance Reaction Status Data Source(s ) Drug allergy Sulfa (Sulfonamide Antibiotics) Sulfa (Sulfonamide Ant ibiotics) [facility] Drug allergy oxycodone oxycodone Nausea and vomiting [place] [facility] Drug allergy morphine morphine Nausea and vomiting [place] [facility] Drug allergy codeine codeine Nausea and vomiting [place] [facility] Drug Allergy Drug Allergy NKDA MEDENT ([facility] Family History Family Member Name Family Member Gender Family Member Status Date o f Status Description Data Source(s) Unknown Unknown 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 02/08 03:45:00 PM EDT MEDENT (Ziggy [facility] MD) Unknown [address] [facility], [facility] [address] 02/05/2021 12:00:00 AM EDT eCW1 ([facility]) Unknown [address] [facility] [address] 02/04/2021 12:00:00 AM EDT eCW1 ([facility]) Outpatient [address] [place] [id number] 01/25/2021 12:00:00 AM EDT eCW1 ([facility]) Outpatient Attender: BARRY GALLOWAY MDReferrer: Anuj Goodwin [id number] 01/18/2021 07:41:28 PM EDT [facility] [place] [address] [facility] [address] 01/14/2021 12:00:00 AM EDT eCW1 ([facility]) Outpatient Attender: Chencho Estrella MDReferrer: James cobos MD [id number] 01/11/2021 12:00:00 AM [facility] Outpatient Attender: Jethro Box MDReferrer: Anuj Randall MD LH [id number] 01/08/2021 06:29:05 PM EDT [facility] [place] [address] [facility] [address] 01/08/2021 12:00:00 AM EDT eCW1 ([facility]) Outpatient Attender: J Luis Carrasquillo MDReferrer: Anuj Randall MD L [id number] 01/07/2021 12:24:47 PM EDT [facility] [place] [address] [facility] [place] [address] 01/05/2021 12:00:00 AM EDT eCW1 ([facility]) Outpatient Attender: J Luis Carrasquillo MDReferrer: Anuj [...] [facility] [place] [address] [facility] [address] 12/31/2020 12:00:00 AM EDT eCW1 ([facility]) [place] [address] [facility] [address] 12/30/2020 12:00:00 AM EDT eCW1 ([facility]) Outpatient Attender: Chencho Estrella MDReferrer: James cobos MD 12/28/2020 12:00:00 AM [facility] Outpatient Attender: Holly Piper/Amanda/Dylan/Jay richard 12/24/2020 10:30:00 AM EDT MEDENT ([facility] [place] [address] [facility] [address] 12/24/2020 12:00:00 AM EDT eCW1 ([facility]) Outpatient Attender: J Luis Carrasquillo MDReferrer: Anuj Randall MD 12/18/2020 12:25:52 PM EDT [facility] Out[facility] Referrer: Anuj Randall MD 12/18/2020 12:13:51 PM E DT [facility] Outpatient 12/18/2020 12:08:30 PM EDT [facility] [address] [facility] [address] 12/10/2020 12:00:00 AM EDT eCW1 [facility] [place] [address] [facility] [address] 12/09/2020 12:00:00 AM EDT eCW1 ([facility]) Office Visit Attender: James Piper/Amanda/Dylan/Re indl 12/07/2020 03:45:00 PM EDT MED[facility] ([facility] [place] [address] [facility] [address] 12/04/2020 12:00:00 AM EDT eCW1 ([facility]) Unknown [address] [facility] [address] 12/01/2020 12:00:00 AM EDT eCW1 ([facility]) Outpatient Attender: Holly Piper/[place]/Dylan/R eindl 11/28/2020 01:23:00 AM EDT MEDENT ([facility]) Outpatient Attender: Holly Piper/[place]/Dylan/R eindl 11/27/2020 01:23:00 AM EDT MEDENT ([facility]) Outpatient Attender: ADALID St/[place]/Dylan/Reindl 11/25/2020 01:23:00 AM EDT MEDENT ([facility] [place] [address] [facility] [address] 11/05/2020 12:00:00 AM EDT eCW1 [facility] Outpatient [address] [facility] [address] 11/05/2020 12:00:00 AM EDT eCW1 ([facility]) [place] [address] [facility] [address] 11/05/2020 12:00:00 AM EDT eCW1 ([facility]) Outpatient Attender: James Piper/Amanda/Dylan/Re indl 11/02/2020 10:30:00 AM EDT MED[facility] ([facility] [place] [address] [facility] [address] 10/28/2020 12:00:00 AM EDT eCW1 ([facility]) Outpatient Attender: James Piper/Amanda/Dylan/Re indl 10/16/2020 10:30:00 AM EDT [facility] ([facility] [place] [address] [facility] [address] 10/16/2020 12:00:00 AM EDT eCW1 ([facility]) [place] [address] [facility] [address] 10/15/2020 12:00:00 AM EDT eCW1 ([facility]) [place] [address] [facility] [place] [address] 10/15/2020 12:00:00 AM EDT eCW1 ([facility]) Unknown [address] [facility] [address] 10/14/2020 12:00:00 AM EDT eCW1 ([facility]) Outpatient [address] [facility] [place] [address] 10/02/2020 12:00:00 AM EDT eCW1 ([facility]) Outpatient Attender: Holly Piper/Amanda/Dylan/R eindl 09/28/2020 02:30:00 PM EDT MED[facility] ([facility] [place] [address] [facility] [address] 09/25/2020 12:00:00 AM EDT eCW1 ([facility]) Outpatient Attender: Reed Dutton [place] Office 08/11/2020 02:30:0 0 PM EDT MEDENT ([facility] Outpatient Attender: HOLLY RIVERA MD 07/01/2020 12:00:00 AM [facility] Outpatient Attender: HOLLY RIVERA MD 06/17/2020 12:00:00 AM [facility] Outpatient Referrer: WILFREDO VELEZ MD 06/17/2020 12:0 0:00 AM EST [facility] Unknown [address] [facility] [address] 05/04/2020 12:00:00 AM EST eCW1 ([facility]) [place] [address] [facility] [address] 04/27/2020 12:00:00 AM EST eCW1 ([facility]) [place] [address] [facility] [address] 03/23/2020 12:00:00 AM EDT eCW1 ([facility]) Outpatient Attender: [facility] Office 03/12/2020 04:00:0 0 PM EDT MEDENT ([facility] Outpatient Attender: ZIGGY CLEVELAND MD [facility] 03/11 02:45:00 PM EDT MEDENT ([facility]) Outpatient Attender: [facility] Office 03/02/2020 01:15:0 0 PM EDT MEDENT ([facility] Outpatient [facility] 02/24/2020 12:02:27 AM EDT [facility] Outpatient Attender: [facility] Office 02/11/2020 03:20:0 0 PM EDT MEDENT ([facility] Immunizations Vaccine Date Status Description Data Source(s) COVID-19 VACCINE Moderna 11/14/2020 12:00:00 AM EDT completed [facility] Vaccine Series Complete: YESThis Data wa s Submitted to [facility] Via [employer]. COVID-19 VACCINE Moderna 10/17/2020 12:00:00 AM EDT completed [facility] Vaccine Series Complete: NOThis Data was Submitted to [facility] Via [employer]. New in 2012. IIV4 02/11/2020 03:55:00 PM [...] {tablet} active amLODIPine Besylate 5 MG eCW1 ([facility]) Amlodipine 5 MG Oral Tablet amLODIPine Besylate 5 MG amLODIP ine Besylate 5 MG 02/04/2021 12:00:00 AM EDT 1.0 {tablet} active amLODIPine Besylate 5 MG eCW1 ([facility]) Amlodipine 5 MG Oral Tablet amLODIPine Besylate 5 MG amLODIP ine Besylate 5 MG 02/04/2021 12:00:00 AM EDT 1.0 {tablet} active amLODIPine Besylate 5 MG eCW1 ([facility]) 750 mg 02/03/2021 12:00:00 AM [...] active Blood Pressure Cuff - eCW1 ( [facility]) 5 mg 01/25/2021 12:00:00 AM EDT tablet 90 TAKE 1 TABLET BY MOUTH ONCE A DAY TAKE 1 TABLET BY MOUTH ONCE A DAY SOLD: 01/26/2021 [facility] Blood Pressure Cuff - Blood Pressure Cuff - 01/25/2021 12:00:00 AM EDT active Blood Pressure Cuff - eCW1 ( [facility]) Blood Pressure Cuff - Blood Pressure Cuff - 01/25/2021 12:00:00 AM EDT active Blood Pressure Cuff - eCW1 ( [facility]) 25 mg 01/25/2021 12:00:00 AM EDT tablet,chewable 30 CHEW ONE TABLET BY MOUTH EVERY DAY NEEDED CHEW ONE TABLET BY MOUTH EVERY DAY NEEDED SOLD: 01/26/2021 [facility] Blood Pressure Cuff - Blood Pressure Cuff - 01/25/2021 12:00:00 AM EDT active Blood Pressure Cuff - eCW1 ( [facility]) 100,000 unit/mL 01/20/2021 12:00:00 AM [...] 1.0 {tablet} active predniSONE 5 MG eCW1 ([facility]) Prednisone 5 MG Oral Tablet predniSONE 5 MG predniSONE 5 MG 01/18/2021 12:00:00 AM EDT 1.0 {tablet} active predniSONE 5 MG eCW1 ([facility]) Prednisone 5 MG Oral Tablet predniSONE 5 MG predniSONE 5 MG 01/18/2021 12:00:00 AM EDT 1.0 {tablet} active predniSONE 5 MG eCW1 ([facility]) Prednisone 5 MG Oral Tablet predniSONE 5 MG predniSONE 5 MG 01/18/2021 12:00:00 AM EDT 1.0 {tablet} active predniSONE 5 MG eCW1 ([facility]) Prednisone 5 MG Oral Tablet predniSONE 5 MG predniSONE 5 MG 01/18/2021 12:00:00 AM EDT 1.0 {tablet} active predniSONE 5 MG eCW1 ([facility]) 750 mg 01/01/2021 12:00:00 AM [...] 12:00:00 AM EDT RESPIRATORY active MEDENT ( [facility], ) 300 mg 12/22/2020 12:00:00 AM EDT [...] A DAY SOLD: 03/28/2021 [facility] Nystatin 640536 UNT/ML Oral Suspension Nystatin 250203 UNIT/ML Nystatin 251834 UNIT/ML 12/07/2020 12:00:00 AM EDT 4.0 {ml} active Nystatin 986471 UNIT/ML eCW1 ([facility]) Nystatin 120682 UNT/ML Oral Suspension Nystatin 182193 UNIT/ML Nystatin 248880 UNIT/ML 12/07/2020 12:00:00 AM EDT 4.0 {ml} active Nystatin 989432 UNIT/ML eCW1 ([facility]) Nystatin 964488 UNT/ML Oral Suspension Nystatin 409457 UNIT/ML Nystatin 306470 UNIT/ML 12/07/2020 12:00:00 AM EDT 4.0 {ml} active Nystatin 678772 UNIT/ML eCW1 ([facility]) Nystatin 865734 UNT/ML Oral Suspension Nystatin 084659 UNIT/ML Nystatin 813362 UNIT/ML 12/07/2020 12:00:00 AM EDT 4.0 {ml} active Nystatin 318325 UNIT/ML eCW1 ([facility]) Nystatin 445654 UNT/ML Oral Suspension Nystatin 892805 UNIT/ML Nystatin 874945 UNIT/ML 12/07/2020 12:00:00 AM EDT 4.0 {ml} active Nystatin 614736 UNIT/ML eCW1 ([facility]) 100,000 unit/mL 12/07/2020 12:00:00 AM EDT suspension 160 SWISH AND SPIT 4MLS FOUR TIMES A DAY FOR 10 DAYS SWISH AND SPIT 4MLS FOUR TIMES A DAY FOR 10 DAYS SOLD: 12/08/2020 [facility] Nystatin 892959 UNT/ML Oral Suspension Nystatin 874833 UNIT/ML Nystatin 965507 UNIT/ML 12/07/2020 12:00:00 AM EDT 4.0 {ml} active Nystatin 737789 UNIT/ML eCW1 ([facility]) Nystatin 744410 UNT/ML Oral Suspension Nystatin 840110 UNIT/ML Nystatin 881902 UNIT/ML 12/07/2020 12:00:00 AM EDT 4.0 {ml} active Nystatin 342534 UNIT/ML eCW1 ([facility]) Nystatin 197395 UNT/ML Oral Suspension Nystatin 250621 UNIT/ML Nystatin 911807 UNIT/ML 12/07/2020 12:00:00 AM EDT 4.0 {ml} active Nystatin 979407 UNIT/ML eCW1 ([facility]) Nystatin 497615 UNT/ML Oral Suspension Nystatin 337145 UNIT/ML Nystatin 705983 UNIT/ML 12/07/2020 12:00:00 AM EDT 4.0 {ml} active Nystatin 726453 UNIT/ML eCW1 ([facility]) Nystatin 333182 UNT/ML Oral Suspension Nystatin 457100 UNIT/ML Nystatin 729532 UNIT/ML 12/07/2020 12:00:00 AM EDT 4.0 {ml} active Nystatin 046928 UNIT/ML eCW1 ([facility]) Nystatin 909505 UNT/ML Oral Suspension Nystatin 264151 UNIT/ML Nystatin 356752 UNIT/ML 12/07/2020 12:00:00 AM EDT 4.0 {ml} active Nystatin 785815 UNIT/ML eCW1 ([facility]) Nystatin 493449 UNT/ML Oral Suspension Nystatin 873330 UNIT/ML Nystatin 025372 UNIT/ML 12/07/2020 12:00:00 AM EDT 4.0 {ml} active Nystatin 759669 UNIT/ML eCW1 ([facility]) Nystatin 091098 UNT/ML Oral Suspension Nystatin 744920 UNIT/ML Nystatin 361513 UNIT/ML 12/07/2020 12:00:00 AM EDT 4.0 {ml} active Nystatin 358900 UNIT/ML eCW1 ([facility]) Nystatin 051880 UNT/ML Oral Suspension Nystatin 414619 UNIT/ML Nystatin 328904 UNIT/ML 12/07/2020 12:00:00 AM EDT 4.0 {ml} active Nystatin 017241 UNIT/ML eCW1 ([facility]) 120 ACTUAT Fluticasone propionate 0.23 M G/ACTUAT / salmeterol 0.021 MG/ACTUAT Metered Dose Inhaler [Advair] Advair HFA 230-21 MCG/ACT Advair HFA 230-21 MCG/ACT 12/03/2020 12:00:00 AM EDT 2.0 {puffs} activ e Advair HFA 230-21 MCG/ACT eCW1 ([facility]) Acetaminophen 325 MG UNK 12/03/2020 12:00:00 AM EDT 2. 0 {capsule_as_needed} suspended Acetaminophen 325 MG eCW1 ([facility]) Acetaminophen 325 MG UNK 12/03/2020 12:00:00 AM EDT 2. 0 {capsule_as_needed} active Acetaminophen 325 MG eCW1 ([facility]) 120 ACTUAT Fluticasone propionate 0.23 M G/ACTUAT / salmeterol 0.021 MG/ACTUAT Metered Dose Inhaler [Advair] Advair HFA 230-21 MCG/ACT Advair HFA 230-21 MCG/ACT 12/03/2020 12:00:00 AM EDT 2.0 {puffs} activ e Advair HFA 230-21 MCG/ACT eCW1 ([facility]) PredniSONE ([facility]) UNK 12/03/2020 12:00:00 AM EDT active PredniSONE ([facility]) eCW1 ([facility]) 120 ACTUAT Fluticasone propionate 0.23 M G/ACTUAT / salmeterol 0.021 MG/ACTUAT Metered Dose Inhaler [Advair] Advair HFA 230-21 MCG/ACT Advair HFA 230-21 MCG/ACT 12/03/2020 12:00:00 AM EDT 2.0 {puffs} activ e Advair HFA 230-21 MCG/ACT eCW1 ([facility]) 120 ACTUAT Fluticasone propionate 0.23 M G/ACTUAT / salmeterol 0.021 MG/ACTUAT Metered Dose Inhaler [Advair] Advair HFA 230-21 MCG/ACT Advair HFA 230-21 MCG/ACT 12/03/2020 12:00:00 AM EDT 2.0 {puffs} suspe nded Advair HFA 230-21 MCG/ACT eCW1 ([facility]) Acetaminophen 325 MG UNK 12/03/2020 12:00:00 AM EDT 2. 0 {capsule_as_needed} active Acetaminophen 325 MG eCW1 ([facility]) PredniSONE ([facility]) UNK 12/03/2020 12:00:00 AM EDT active PredniSONE ([facility]) eCW1 ([facility]) Lorazepam 0.5 MG Oral Tablet LORazepam 0.5 MG LORazepam 0.5 MG 12/03/2020 12:00:00 AM EDT 1.0 {tablet_at_bedtime_as_needed} active LORazepam 0.5 MG eCW1 ([facility]) 120 ACTUAT Fluticasone propionate 0.23 M G/ACTUAT / salmeterol 0.021 MG/ACTUAT Metered Dose Inhaler [Advair] Advair HFA 230-21 MCG/ACT Advair HFA 230-21 MCG/ACT 12/03/2020 12:00:00 AM EDT 2.0 {puffs} suspe nded Advair HFA 230-21 MCG/ACT eCW1 ([facility]) 12 HR Guaifenesin 600 MG Extended Release Oral Tablet [Mucinex] Mucinex 600 MG Mucinex 600 MG 12/03/2020 12:00:00 AM EDT 1.0 {tablet_as_needed} active Mucinex 600 MG eCW1 ([facility]) Acetaminophen 325 MG UNK 12/03/2020 12:00:00 AM EDT 2. 0 {capsule_as_needed} active Acetaminophen 325 MG eCW1 ([facility]) Levofloxacin 750 MG Oral Tablet levoFLOXacin 750 MG levoFLOX acin 750 MG 12/03/2020 12:00:00 AM EDT 1.0 {tablet} active levoFLOXacin 750 MG eCW1 ([facility]) Acetaminophen 325 MG UNK 12/03/2020 12:00:00 AM EDT 2. 0 {capsule_as_needed} active Acetaminophen 325 MG eCW1 ([facility]) PredniSONE ([facility]) UNK 12/03/2020 12:00:00 AM EDT suspended PredniSONE ([facility]) eCW1 ([facility]) 120 ACTUAT Fluticasone propionate 0.23 M G/ACTUAT / salmeterol 0.021 MG/ACTUAT Metered Dose Inhaler [Advair] Advair HFA 230-21 MCG/ACT Advair HFA 230-21 MCG/ACT 12/03/2020 12:00:00 AM EDT 2.0 {puffs} activ e Advair HFA 230-21 MCG/ACT eCW1 ([facility]) 12 HR Guaifenesin 600 MG Extended Release Oral Tablet [Mucinex] Mucinex 600 MG Mucinex 600 MG 12/03/2020 12:00:00 AM EDT 1.0 {tablet_as_needed} active Mucinex 600 MG eCW1 ([facility]) Ibuprofen 600 MG Oral Tablet Ibuprofen 600 MG 12/03/2020 12:00:00 AM E DT active [facility]fen [facility] Acetaminophen 325 MG Oral Tablet ACETAMINOPHEN 12/03/2020 [...] activ e Advair HFA 230-21 MCG/ACT eCW1 ([facility]) 120 ACTUAT Fluticasone propionate 0.23 M G/ACTUAT / salmeterol 0.021 MG/ACTUAT Metered Dose Inhaler [Advair] Advair HFA 230-21 MCG/ACT Advair HFA 230-21 MCG/ACT 12/03/2020 12:00:00 AM EDT 2.0 {puffs} activ e Advair HFA 230-21 MCG/ACT eCW1 ([facility]) PredniSONE ([facility]) UNK 12/03/2020 12:00:00 AM EDT active PredniSONE ([facility]) eCW1 ([facility]) PredniSONE ([facility]) UNK 12/03/2020 12:00:00 AM EDT suspended PredniSONE ([facility]) eCW1 ([facility]) PredniSONE ([facility]) UNK 12/03/2020 12:00:00 AM EDT active PredniSONE ([facility]) eCW1 ([facility]) Levofloxacin 750 MG Oral Tablet levoFLOXacin 750 MG levoFLOX acin 750 MG 12/03/2020 12:00:00 AM EDT 1.0 {tablet} active levoFLOXacin 750 MG eCW1 ([facility]) 50 mg 12/03/2020 12:00:00 AM [...] 12:00:00 AM EDT active PredniSONE ([facility]) eCW1 ([facility]) Acetaminophen 325 MG UNK 12/03/2020 12:00:00 AM EDT 2. 0 {capsule_as_needed} active Acetaminophen 325 MG eCW1 ([facility]) 750 mg 12/03/2020 12:00:00 AM EDT tablet 8 TAKE 1 TABLET BY MOUTH DAILY TAKE 1 TABLET BY MOUTH DAILY SOLD: 12/03/2020 [facility] 20 mg 12/03/2020 12:00:00 AM EDT capsule,delayed release (DR/EC) 30 TAKE 1 CAPSULE [20MG] BY MOUTH DAILY TAKE 1 CAPSULE [20MG] BY MOUTH DAILY SOLD: 12/03/2020 [facility] 12 HR Guaifenesin 600 MG Extended Release Oral Tablet [Mucinex] Mucinex 600 MG Mucinex 600 MG 12/03/2020 12:00:00 AM EDT 1.0 {tablet_as_needed} active Mucinex 600 MG eCW1 ([facility]) PredniSONE ([facility]) UNK 12/03/2020 12:00:00 AM EDT suspended PredniSONE ([facility]) eCW1 ([facility]) Acetaminophen 325 MG UNK 12/03/2020 12:00:00 AM EDT 2. 0 {capsule_as_needed} active Acetaminophen 325 MG eCW1 ([facility]) 12 HR Guaifenesin 600 MG Extended Release Oral Tablet [Mucinex] Mucinex 600 MG Mucinex 600 MG 12/03/2020 12:00:00 AM EDT 1.0 {tablet_as_needed} active Mucinex 600 MG eCW1 ([facility]) Acetaminophen 325 MG UNK 12/03/2020 12:00:00 AM EDT 2. 0 {capsule_as_needed} suspended Acetaminophen 325 MG eCW1 ([facility]) PredniSONE ([facility]) UNK 12/03/2020 12:00:00 AM EDT active PredniSONE ([facility]) eCW1 ([facility]) PredniSONE ([facility]) UNK 12/03/2020 12:00:00 AM EDT active PredniSONE ([facility]) eCW1 ([facility]) tramadol hydrochloride 50 MG Oral Tablet traMADol HCl 50 MG traMADol HCl 50 MG 12/03/2020 12:00:00 AM EDT 1.0 {tablet_as_needed} active traMADol HCl 50 MG eCW1 ([facility]) Acetaminophen 325 MG UNK 12/03/2020 12:00:00 AM EDT 2. 0 {capsule_as_needed} suspended Acetaminophen 325 MG eCW1 ([facility]) Acetaminophen 325 MG UNK 12/03/2020 12:00:00 AM EDT 2. 0 {capsule_as_needed} active Acetaminophen 325 MG eCW1 ([facility]) tramadol hydrochloride 50 MG Oral Tablet traMADol HCl 50 MG traMADol HCl 50 MG 12/03/2020 12:00:00 AM EDT 1.0 {tablet_as_needed} active traMADol HCl 50 MG eCW1 ([facility]) 120 ACTUAT Fluticasone propionate 0.23 M G/ACTUAT / salmeterol 0.021 MG/ACTUAT Metered Dose Inhaler [Advair] Advair HFA 230-21 MCG/ACT Advair HFA 230-21 MCG/ACT 12/03/2020 12:00:00 AM EDT 2.0 {puffs} activ e Advair HFA 230-21 MCG/ACT eCW1 ([facility]) PredniSONE ([facility]) UNK 12/03/2020 12:00:00 AM EDT active PredniSONE ([facility]) eCW1 ([facility]) 600 mg 12/03/2020 12:00:00 AM [...] 1.0 {tablet_as_needed} active Mucinex 600 MG eCW1 ([facility]) 12 HR Guaifenesin 600 MG Extended Release Oral Tablet [Mucinex] Mucinex 600 MG Mucinex 600 MG 12/03/2020 12:00:00 AM EDT 1.0 {tablet_as_needed} active Mucinex 600 MG eCW1 ([facility]) PredniSONE ([facility]) UNK 12/03/2020 12:00:00 AM EDT active PredniSONE ([facility]) eCW1 ([facility]) Acetaminophen 325 MG UNK 12/03/2020 12:00:00 AM EDT 2. 0 {capsule_as_needed} active Acetaminophen 325 MG eCW1 ([facility]) 10 mg 12/03/2020 12:00:00 AM [...] ONCE DAILY FOR 8 DAYS SOLD: 12/03/2020 [facility] 120 ACTUAT Fluticasone propionate 0.23 M G/ACTUAT / salmeterol 0.021 MG/ACTUAT Metered Dose Inhaler [Advair] Advair HFA 230-21 MCG/ACT Advair HFA 230-21 MCG/ACT 12/03/2020 12:00:00 AM EDT 2.0 {puffs} activ e Advair HFA 230-21 MCG/ACT eCW1 ([facility]) PredniSONE (Ritesh) UNK 12/03/2020 12:00:00 AM EDT suspended PredniSONE (Ritesh) eCW1 ([facility]) 12 HR Guaifenesin 600 MG Extended Release Oral Tablet GUAIFE NESIN 12/03/2020 12:00:00 AM EDT tablet extended release 12hr 14 EVA E TWO TABLETS BY MOUTH TWICE A DAY TAKE TWO TABLETS BY MOUTH TWICE A DAY SOLD: 12/03/2020 [facility] 120 ACTUAT Fluticasone propionate 0.23 M G/ACTUAT / salmeterol 0.021 MG/ACTUAT Metered Dose Inhaler [Advair] 230-21 mcg/actuation FLUTICASONE PROPION/SALMETEROL 12/03/2020 12:00:00 AM EDT HFA aerosol inhaler 12 INHALE TWO PUFFS BY MOUTH TWICE A DAY INHALE TWO PUFFS BY MOUTH TWICE A DAY SOLD: 12/03/2020 [facility] Levofloxacin 750 MG Oral Tablet levoFLOXacin 750 MG levoFLOX acin 750 MG 12/03/2020 12:00:00 AM EDT 1.0 {tablet} active levoFLOXacin 750 MG eCW1 ([facility]) 0.5 mg 12/03/2020 12:00:00 AM EDT tablet 20 TAKE 1 TABLET BY MOUTH EVERY 6 HOURS NEEDED FOR VOMITING MAXIMUM DAILY DOSE = 6 TABLETS TAKE 1 TABLET BY MOUTH EVERY 6 HOURS NEEDED FOR VOMITING MAXIMUM DAILY DOSE = 6 TABLETS SOLD: 12/03/2020 [facility] Levofloxacin 750 MG Oral Tablet levoFLOXacin 750 MG levoFLOX acin 750 MG 12/03/2020 12:00:00 AM EDT 1.0 {tablet} active levoFLOXacin 750 MG eCW1 ([facility]) 12 HR Guaifenesin 600 MG Extended Release Oral Tablet [Mucinex] Mucinex 600 MG Mucinex 600 MG 12/03/2020 12:00:00 AM EDT 1.0 {tablet_as_needed} active Mucinex 600 MG eCW1 ([facility]) Ibuprofen 600 MG Oral Tablet Ibuprofen 600 MG 12/03/2020 12:00:00 AM E DT active [facility]fen [facility] 120 ACTUAT Fluticasone propionate 0.23 M G/ACTUAT / salmeterol 0.021 MG/ACTUAT Metered Dose Inhaler [Advair] Advair HFA 230-21 MCG/ACT Advair HFA 230-21 MCG/ACT 12/03/2020 12:00:00 AM EDT 2.0 {puffs} suspe nded Advair HFA 230-21 MCG/ACT eCW1 ([facility]) Acetaminophen 325 MG UNK 12/03/2020 12:00:00 AM EDT 2. 0 {capsule_as_needed} active Acetaminophen 325 MG eCW1 ([facility]) Ibuprofen 600 MG Oral Tablet Ibuprofen 600 MG 12/03/2020 12:00:00 AM E DT active Ibuprofen 600 MG [facility]CW1 [facility] 120 ACTUAT Fluticasone propionate 0.23 M G/ACTUAT / salmeterol 0.021 MG/ACTUAT Metered Dose Inhaler [Advair] Advair HFA 230-21 MCG/ACT Advair HFA 230-21 MCG/ACT 12/03/2020 12:00:00 AM EDT 2.0 {puffs} suspe nded Advair HFA 230-21 MCG/ACT eCW1 ([facility]) Lorazepam 0.5 MG Oral Tablet LORazepam 0.5 MG LORazepam 0.5 MG 12/03/2020 12:00:00 AM EDT 1.0 {tablet_at_bedtime_as_needed} active LORazepam 0.5 MG eCW1 ([facility]) Acetaminophen 325 MG UNK 12/03/2020 12:00:00 AM EDT 2. 0 {capsule_as_needed} suspended Acetaminophen 325 MG eCW1 ([facility]) PredniSONE ([facility]) UNK 12/03/2020 12:00:00 AM EDT active PredniSONE ([facility]) eCW1 ([facility]) 120 ACTUAT Fluticasone propionate 0.23 M G/ACTUAT / salmeterol 0.021 MG/ACTUAT Metered Dose Inhaler [Advair] Advair HFA 230-21 MCG/ACT Advair HFA 230-21 MCG/ACT 12/03/2020 12:00:00 AM EDT 2.0 {puffs} activ e Advair HFA 230-21 MCG/ACT eCW1 ([facility]) Acetaminophen 325 MG UNK 12/03/2020 12:00:00 AM EDT 2. 0 {capsule_as_needed} active Acetaminophen 325 MG eCW1 ([facility]) 120 ACTUAT Fluticasone propionate 0.23 M G/ACTUAT / salmeterol 0.021 MG/ACTUAT Metered Dose Inhaler [Advair] Advair HFA 230-21 MCG/ACT Advair HFA 230-21 MCG/ACT 12/03/2020 12:00:00 AM EDT 2.0 {puffs} activ e Advair HFA 230-21 MCG/ACT eCW1 ([facility]) Ibuprofen 600 MG Oral Tablet Ibuprofen 600 MG 12/03/2020 12:00:00 AM E DT active Ibuprofen 600 MG [facility]CW[facility] 5 mg 11/30/2020 12:00:00 AM EDT tablet 90 TAKE 1 TABLET BY MOUTH ONCE A DAY TAKE 1 TABLET BY MOUTH ONCE A DAY SOLD: 12/01/2020 [facility] Acetaminophen 325 MG / Hydrocodone Anthony trate 5 MG Oral Tablet HYDROcodone- Acetaminophen 5-325 MG HYDROcodone-Acetaminophen 5-325 MG 11/05/2020 12:00:00 AM EDT 1.0 {tablet_as_needed} active HYDROcodone-Acetaminophen 5-325 MG eCW1 ([facility]) Acetaminophen 325 MG / Hydrocodone Anthony trate 5 MG Oral Tablet HYDROcodone- Acetaminophen 5-325 MG HYDROcodone-Acetaminophen 5-325 MG 11/05/2020 12:00:00 AM EDT 1.0 {tablet_as_needed} active HYDROcodone-Acetaminophen 5-325 MG eCW1 ([facility]) Acetaminophen 325 MG / Hydrocodone Bitartrate 5 MG Ora l Tablet 5-325 mg HYDROCODONE/ACETAMINOPHEN 11/05/2020 12:00:00 AM EDT tablet 21 TAKE ONE TABLET BY MOUTH EVERY 8 HOURS NEEDED MAXIMUM DAILY DOSE = 3 TAKE ONE TABLET BY MOUTH EVERY 8 HOURS NEEDED MAXIMUM DAILY DOSE = 3 SOLD: 11/05/2020 [facility] Acetaminophen 325 MG / Hydrocodone Anthony trate 5 MG Oral Tablet HYDROcodone- Acetaminophen 5-325 MG HYDROcodone-Acetaminophen 5-325 MG 11/05/2020 12:00:00 AM EDT 1.0 {tablet_as_needed} active HYDROcodone-Acetaminophen 5-325 MG eCW1 ([facility]) 90 mcg/actuation 11/04/2020 12:00:00 AM [...] 12:00:00 AM EDT ORAL active M SANDRAENT ([facility], ) 5 mg 09/28/2020 12:00:00 AM EDT [...] BY MOUTH ONCE A DAY SOLD: 11/29/2020 [facility] 5 mg 08/11/2020 12:00:00 AM EDT [...] Neomycin 3.5 M G/ML / Polymyxin B 99440 UNT/ML Otic Suspension Neomycin/Polymyxin/Hydrocortisone (Otic) 03/02/2020 12:00:00 [...] coates Policy Coates Plan Information MEDICARE A [id number] Self [id number] D18 MEDICARE A [id number] Self [id number] A MEDICARE [id number] Ramila [id number] A MEDICARE [id number] SP [id number] D18 Medicare Primary [id number] D18 MEDICAID M [id number] Self [id number] MEDICAID [id number] [place] [id number] [place] [id number] SP [id number] S MEDICAID [id number] SP [id number] [place] [id number] SP [id number] Medicaid Secondary [id number] ANS-Medicare Part B [id number] ANSI-Medicaid [id number] ANS-Medicare Part B [id number] ANSI-Medicaid [id number] ANSI-Medicare Part B [id number] ANSI-Medicare Part B [id number] ANSI-Medicaid [id number] ANSI-Medicaid [id number] ANSI-Medicare Part B [id number] ANSI-Medicaid [id number] ANSI-Medicare Part B [id number] ANSI-Medicaid [id number] ANSI-Medicare Part B [id number] ANSI-Medicaid [id number] ANSI-Medicare Part B [id number] ANSI-Medicaid [id number] ANSI-Medicare Part B [id number] ANSI-Medicare Part B [id number] ANSI-Medicaid [id number] ANSI-Medicare Part B [id number] ANSI-Medicaid [id number] ANSI-Medicaid [id number] ANSI-Medicare Part B [id number] ANSI-Medicaid [id number] ANSI-Medicare Part B [id number] ANSI-Medicare Part B [id number] [facility]-Medicaid [id number] ANSI-Medicare Part B [id number] [facility]-Medicaid [id number] [facility]-Medicaid [id number] ANSI-Medicare Part B [id number] ANS-Medicaid [id number] ANSI-Medicare Part B [id number] ANSI-Medicaid [id number] ANSI-Medicare Part B [id number] ANSI-Medicare Part B [id number] ANSI-Medicare Part B [id number] ANSI-Medicare Part B [id number] ANSI-Medicare Part B [id number] ANSI-Medicare Part B [id number] ANSI-Medicare Part B [id number] ANSI-Medicare Part B [id number] ANSI-Medicare Part B [id number] MEDICARE [id number] SP [id number] A ANSI-Medicare Part B [id number] MEDICARE C [id number] S [id number] A [place] MEDICARE PART B C [id number] S [id number] [facility] S[facility] OPTIONS C [id number] S [id number] MEDICARE PI PI Medicare (Part B) Medicare Primary [id number] Self [id number] Medicare (Part A) Medicare Primary [id number] Self 0 [id number] [place] [id number] SP [id number] S MEDICARE [id number] SP [id number] D18 SELF PAY ONLY [id number] SP [id number] [place] [id number] SP [id number] Medicare P [id number] S [id number] D18 Medicaid S UNAVAILABLE S [place] BLE MEDICAID [id number] SP [id number] MEDICARE C [id number] S [id number] D18 MEDICAID M [id number] S [id number] ANSI-Medicaid [id number] Problems, Conditions, and Diagnoses Code Display Name Description Problem Type Effective Dates Data Source(s) C34.92 Malignant neoplasm of unspecified part o f left bronchus or lung Malignant neoplasm of unspecified part of left bronchus or lung Diagnosis 11/26/2020 12:00:00 AM EDT [facility] E05.90 33326809 Hyperthyroidism Problem 03/26/2021 12:00:00 AM EDT eCW1 ([facility]) C34.90 821521214 Small cell lung cancer Problem 01/25/2021 12 :00:00 AM EDT eCW1 ([facility]) [id number] Blind left eye Blind left eye Problem 02/11/2020 12:00: 00 AM EDT MEDENT ([facility] [id number] Gastroesophageal reflux disease Gastroesophageal reflux disease Problem 02/11/2020 12:00:00 AM EDT MED[facility] ([facility] 70150978 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 ) 01122080 Hyperlipidemia Hyperlipidemia Problem 02/11/2020 12:00: 00 AM EDT MEDENT ([facility] [id number] Essential hypertension Essential hypertension Problem 02/11/2020 12:00:00 AM EDT MEDENT ([facility] ) 75237990 Hypothyroidism Hypothyroidism Problem 02/11/2020 12:00: 00 AM EDT MEDENT ([facility] Surgeries/Procedures Procedure Description Date Indications [...] 25 MINUTES 12/24/2020 12:00:00 AM EDT MEDENT ([facility], ) PHYSICIAN TELEPHONE EVALUATION 5-10 MIN 12/07/2020 12: 00:00 AM EDT MEDENT ([facility], ) OFFICE OUTPATIENT VISIT 25 MINUTES 12/07/2020 12:00:00 AM EDT MEDENT ([facility], ) [facility]/DAY 25 MINUTES 11/28/2020 12:00:00 AM EDT MEDENT ([facility] ) [facility]/DAY 25 MINUTES 11/27/2020 12:00:00 AM EDT MEDENT ([facility]) Bronchoscopy W/Biopsy 11/26/2020 12:00:00 AM EDT MEDENT ([facility]) With Endobronchial Ultrasound Guided 11/26/2020 12:00: 00 AM EDT MEDENT ([facility]) [facility]/DAY 25 MINUTES 11/25/2020 12:00:00 AM EDT MED[facility] ([facility]) OFFICE OUTPATIENT VISIT 15 MINUTES 11/02/2020 12:00:00 AM EDT MEDENT ([facility]) Inject/Drain Arthrocentesis Major Joint/Bursa/Ganglion Cyst 10/16/2020 12:00:00 AM EDT MED[facility] ([facility]) OFFICE OUTPATIENT NEW 45 MINUTES 10/16/2020 12:00:00 A M EDT MED[facility] ([facility]) Spirometry 09/28/2020 12:00:00 AM EDT M EDENT ([facility]) OFFICE OUTPATIENT VISIT 25 MINUTES 09/28/2020 12:00:00 AM EDT MED[facility] ([facility]) MYOCARDIAL SPECT MULTIPLE STUDIES 08/07/2020 12:00:00 AM EST MED[facility] ([facility]) CV STRS TST XERS&/OR RX CONT ECG PHYS SI&R 03/11/2020 12:00:00 AM EDT [facility] ([facility]) ECHO TTHRC R-T 2D W/WOM-MODE COMPL SPEC&COLR DOP 03/11 12:00:00 AM EDT MED[facility] ([facility]) Electrocardiogram Complete 02/11/2020 12:00:00 AM EDT MEDENT ([facility] Results ID Date Data Source [id number] 02/25/2021 01:38:50 PM EDT [facility] Name Value Range Interpretation Code Description Data Babita rce(s) Supporting Document(s) *Initial Consult Visit RENU v1 [facility] AAGGVw3bGqIDPhDjp8vsOEnqXMEyz8NaWXs4DC4IG2JsY2PjURZkYYKALJfjU9X0aKV8BG56UA27ahWi PdX [file] budWLuNcvXyDDkNQvXxRCCuNcsXyPDkNcsXBdDCOJe g3qZPQGih2TbXLYXr17xGSKRfg8GbZNWDD5y1pzn7QDkmBGEHGiWgqOuKFTejQGv7RbpJs4165XTfbWi m9BuEIrpA8JU1F8yY/Yfy85fzt9x3RX7gnoS86/RAhYn2f24lpXhTu6xB0dQ5gahtT7CRoOj/DRyTxXv PzeKhtZL7dkK1ApwcsSiYtxzCawfh69nB0shqT62TR ZdiNrFcbgOnSySFWW7jXXkj5cPm6/WqGkEYz8CubmcdZlB44kVaQMR2p9NEP+Ot5cp5TICODfFTVRG4n YxLGy0yXA0LCqanNbqIU5QcCxRENhvOhAsT2t6aF6ANvNQERlajDCOVnEJmxXayRKCFNejP6QBgGGlYR RarXJd5SmgUjZ9T4HYoyIyuYJHUQaaK9SJbVVc4V97 fx0KcR5lj/pf5TNUYD9he9/OvWabl+bokNcsvR+zb334Vud50+nN7pq6KFe/tb8ve9my4TEWGI1by1/O zoojHiGHN6S9IqdmB07M09UfGAaysINejCGssHfIqZOQYe4085ZKI78Ky2hpKJI/cfu/b//director of medicare/7uhz/4 Dz/5+a9++ptf/PX/+E//+Z9+9/PuBknlzI7hLq HrcWrP//xet9bbRv///UkT8h953/O/+b/fIvz3H/71h3/x4S9u//nLD39++89f/Ojrr3/7s01FyrBT+p LJniyD7AOsAk174r3J+/P2H33/42w8/v/33n/50Povx+y0PT0BiubHxqdM/++LSH4315IbCt4tp2X Gr2x9/tulqR05H+28Vdj4u60UZY9C77sFQ+YNoI8nB oHFybewrT7hR0Xab/nj7qv/+VobfPi/Hxwp88+EnH37++aR++be///FPf/0pqb/5j//q0O14fViPDh6k 9FszEjiqgj1wqv3HPc/e7tnbtkpC5t+/+vDXtz/30FagRpv2pLo7Uvsv/VOf+7Xdz7YhbEDsI/urDz++ 9tGdD8QnZTufD3NGN3no+ajrb9+tdEw5An/dSXxco9 uLdowH2tf3Bzm9rhB//tUAB4CdbsHmHgYCIZmw+5eHO18d8Nrjcoy8M5ipXc9y54e/30gGEDcotA49q6 u/FBNiH6REp8RZV/se3x5tGqmm+6WBttXjG4xbqx+//OMUGu48356q7o3f5wv/nE/g2p4IxIeDibXlpG dV2KwJz3x5JrVEY90+tAR/8/DCI339eE28n/jvbl9u la8Ic67195+5lrHcxrl2ux/6H9uqy1VZt9+A+/g9HSnh1iLX/+N9uFl6GEo/YzZLYvyW93VQcyfi10r9 PDF+norbert+8THz8+fy/N3zI+p9beX2hB2+/E0rX7bM/5+/eeCPLcyvbyr9+Pbnf/b4Xx/Eb3lj1cjRX162 [file] Terry+LL9M9UoO86beHmAabwExtaYl1o2qA/0l+nxrXXfHnH4vPhZZrVMkESI7PNTQItGLOkY7Dbh6dJjJ +LOldtiNP/B/tikFOGLrWoDWP0jiBiaU5MAMnmrhNo SqrHBmrgDDUUBsXwNUMBMmEhYUPsEAPkWSFxNiL0AbMgKj4GPRNwNSSeJWByWqSmRPVhYPRdOIicSUSw ALHmKlGjJGEvBKAvOC7MPlKuSSOtIoZ0EETfCIAyJEZrjf9EWBOlJADjJDXxCmMyHACyJIGmZJoyNJVw UPBmNHZuZKHcVNGzTY4GOzSuEUAkKIF9WHKrGNCyWG Nceb4SSYYhLKOjEjM3IvPpAQKzCGGiOLfzXZVxBQF4UWXzYHQuRPQxOY7MZiXmNYOwVHVrCmfrDVBcSA Jlsn9WXWXzMMDxUHxePJKnNVNmCNCyQXlnBOKtZULuTGDeWLTtYLWhZU1SZgEjFYIlRTX9RqCpWEWlBL Lxfr7VXTWuMMAdHzXwRRWiFYHtLYLdOAnxULNzHGTc HjImHWZhMTGyOU3XLuVcIZHeCsN1VaksFBZwOUNxbf4TRVFvOCRiKTPgOkRmNWLwWLRkTXuiKQCzLPav SUvxYFNaAKQdBR7LWoKzAZOsScG0KmYnSPGkTDZcwe7DALWcZFRrWttjZbQfFQRkRHHvFYbmYJKeLRL4 ISC6HHAfRAYnPJ4NGxBpVVZqEgvzHnCdQSVdECMzdm 1ITAPmWEKiKVu2EQIaOYUuAECxBGbpJVZtNUC4RHi4WRFcFUKgMO8TPgWeOHIiEJY7STKhDHFrBFBxtj 7CHPAsPUHeQVgeHpLmQSNqOOZbSAvyJQMyYIQ6RKPhLMAuMQMoSP0EKwRxYLYoDTpgMZGrFANmIOEpio 9MHTQjUOH2OUZ0INJfQTNdWHWsJQsdFCYdARH6RZM5 ZVHwQWAjIH7WQxKlXYHpLsQlAGDfQBXnXFTwvw4ZTISzEWK9JDBqALBgCJUgAKSnAHymPGReEXizVIat XJTjAYUpQX5LXqFwZCHkVoU4TNVnWITsBCXwrw6BNSZvJUO3TMu2DVIxDZGuFWKtKDioHAOsIDf7AEu1 CZRkYKAxOY0LGyLkZRNxIwK0JHnsQXPpXHCxgr8XFV GrNXA7TEHzJFWgVCUuCRBwBYiuYPNjHHv8OnT8KREbROQbOY5CZaDmNWRgEcwbRaqgQDVxKBGltp7IDX RpHMToTUL7GSQoSGJeBBOtONt7lvPauMMrZMo0TJ9EA0eoQb6iRYCwRESQBNkrOq8ocYKfIGIeHl6II4 NpemUgNDENCj4+KRdWQwY2QXJ6rUYvDo1ZSQWrXlTzVFqwMRDGQq8S ID Date Data Source [id number] 01/13/2021 02:42:16 PM EDT [facility] Name Value Range Interpretation Code Description Data Babita rce(s) Supporting Document(s) *No Show Note RENU v1 [facility] CMWYTt5qBdVQMjLhn1feNTqnHOEtt4LgTDb6VW5HP5LfQVpfebHoQXJiehOeD4MaTWIsSMDCPSniBUjo FQz [file] 8Q2+mitchell/xdFOK+n/2sclBwoYz3hwF7riamioamze+nL8785S95C5Qy2eX+fz237V9F39auH7SH27k5Q8 /EOoW/f0h+xjWqkzS258yA3wa1ODsagmiIpRzPvy32bLiC+3mGa+7069YsNLJ46pbLh8z+toA/j1Doav kd/btyPce/oa9BshpH/X46N+EnyTFit8fETFndAw7e +Aen1wbiiJyZiudrLXGvu2rDFJlKu91rLEdWeBkaHaS/AloZyWJz6KdNQpm2BEaSPpXsIMQp530RKxAp 1mf21a3ri8XyIYerDr880wlr4X24Rf8PE63HJ5J/OIpLPYM/is25sf43+sr48rcvKJsdQg6CweAjUmLy xl1bfnB/UlE3qfds6JaE25jU90ZVkrG2+Qm6siBmxK jgQxc8pQQ83/dDiUpQkVrfE+/tR/nniu84CJx6z9pz00ReJvmJNtukD/uaYKjYf3VltHcCxDYY/ozD9Q 7uET8D/7U9Z0vPxv/F+3I2bDvoB4gTdqSoTHxgzfTdMAQAipwxK+YMGlcz5ifR9Nf3jz1B9w6d/jbGbg /rSdN0pFh5J3Mwk6Z9cVYCM/676Gr18d3VaQe0nFbC wlpxOew+WckOm564Zt7nkvhk5zngmk+DPHPRDuel3Tz7x77R+6cV+FwEtrl13E+0Unsacdny+ceYhq5l Xu7tJhS7qBvsC+K03Vh/c/hNWo/znWJ+bpa5Q0PB87Nqcu0YrIfIqp69SjjQ8cG1A/Vy2Ldw/n+0Uu1G jeeG13q8Tc96S5LhtUZ+5gw0Kw1fbNM7waG9RkHE5P 0QWDoCl1YH9WJrlWx5+n0qlTOqva5JPi15+KHSKh3qnis5vPqf2k8s6aeD/tsJuKZXEo+MeSTxSdpDiY /dU/ncOlQ1kn5/NMJeTWwnavT0G7MVcSoySC8ci0O0l/j5Qvm6/Eahrocr8LXR2IQFL/Mikael+Z9ldiFjt hD7NSXeeE6JXGdDpxycjZTsAX/IsrencS7+ovkoJxc 3IfHYw+Zt/MC+eeIJm6+QMEvkkx+9dvU1drKZM14qoWxb1l61M2JEUJo3N0iNfqcMH7t6VJfxCFYMDFT ZQ8QBV/RugLTBMWqk723BvS4hLmixuksMQbnBXvgBZxxGKetOFgsHGqxOWhmXBiuNGttHZwmKZpjWXza [facility]+MQqRd5 [file] [employer]ke[employer] 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 Name Value Range Interpretation Code Description Data Babita rce(s) Supporting Document(s) Progress Note [facility] VEIOAa0cDvRJYzYb29/BMFpiOBMhq7OsFEwgXGf3IQybEFCnT4NrESX6cH2pTHY4XRfNOaGqWfTbRNS8 lbm [file] ID Date Data Source [id number] 12/27/2020 08:58:00 AM EDT [facility] Name Value Range Interpretation Code Description Data Babita rce(s) Supporting Document(s) SARS-CoV-2 (COVID 19) NEGATIVE - SARS-CoV-2 (COVID19) [facility] This lab was ordered by [facility] a nd reported by [facility]. ID Date Data Source [id number] 12/14/2020 08:58:00 AM EDT [facility] Name Value Range Interpretation Code Description Data Babita rce(s) Supporting Document(s) SARS-CoV-2 (COVID 19) NEGATIVE - SARS-CoV-2 (COVID19) [facility] This lab was ordered by [facility] a nd reported by [facility]. ID Date Data Source [id number] 11/24/2020 04:29:00 PM EDT [facility] Name Value Range Interpretation Code Description Data Babita rce(s) Supporting Document(s) SARS-CoV-2 (COVID 19) NEGATIVE - SARS-CoV-2 (COVID19) [facility] This lab was ordered by [facility] a nd reported by [facility]. ID Date Data Source [id number] 09/21/2020 02:21:00 PM EDT [facility] Name Value Range Interpretation Code Description Data Babita rce(s) Supporting Document(s) SARS-CoV-2 (COVID 19) NEGATIVE - SARS-CoV-2 (COVID19) [facility] This lab was ordered by [facility] a nd reported by [facility]. ID Date Data Source [id number] 08/11/2020 03:05:00 PM EDT [facility] ([facility] Name Value Range Interpretation Code Description Data Babita rce(s) Supporting Document(s) Creatine kinase [Enzymatic activity/volume] in Serum or Plasma 81 U /L 26-192 [facility] ([facility] NORMAL RANGES Age WBC [...] HCT IS 5% LESS SOURCE FOR DATA: [employer] 1800 OPERATION MANUAL( AUTOMATED BLOOD COUNTS AND [...] 2-19 YEARS EXCLUSIVE. ID Date Data Source [id number] 08/11/2020 03:05:00 PM EDT [facility] ([facility] Name Value Range Interpretation Code Description Data Babita rce(s) Supporting Document(s) Chol 155 mg/dL 0-200 [facility] ([facility] NORMAL RANGES [...] HCT IS 5% LESS SOURCE FOR DATA: [employer] DYN 1800 OPERATION MANUAL( AUTOMATED BLOOD COUNTS [...] HCT IS 5% LESS SOURCE FOR DATA: [employer] 1800 OPERATION MANUAL( AUTOMATED BLOOD COUNTS AND [...] LDL_C 55 Calc 75-129 Below low normal [facility] ( [facility] NORMAL [...] HCT IS 5% LESS SOURCE FOR DATA: [employer] 1800 OPERATION MANUAL( AUTOMATED BLOOD COUNTS AND [...] Cho/HDL Ratio 2.6 CALC [facility] ([facility] NORMAL RANGES Age WBC RBC [...] HCT IS 5% LESS SOURCE FOR DATA: [employer] 1800 OPERATION MANUAL( AUTOMATED BLOOD COUNTS AND [...] 2-19 YEARS EXCLUSIVE. ID Date Data Source [id number] 08/11/2020 03:05:00 PM EDT [facility] ([facility] Name Value Range Interpretation [...] HCT IS 5% LESS SOURCE FOR DATA: [employer] DYN 1800 OPERATION MANUAL( AUTOMATED BLOOD COUNTS [...] HCT IS 5% LESS SOURCE FOR DATA: [employer] 1800 OPERATION MANUAL( AUTOMATED BLOOD COUNTS AND [...] 2-19 YEARS EXCLUSIVE. BUN 14 mg/dL 8-23 [facility] ([facility] NORMAL RANGES Age WBC RBC [...] HCT IS 5% LESS SOURCE FOR DATA: [employer] DYN 1800 OPERATION MANUAL( AUTOMATED BLOOD COUNTS [...] YEARS EXCLUSIVE. BUN/Creatinine Ratio 13.9 CALC [facility] ([facility] NORMAL RANGES Age [...] HCT IS 5% LESS SOURCE FOR DATA: [employer] 1800 OPERATION MANUAL( AUTOMATED BLOOD COUNTS AND [...] HCT IS 5% LESS SOURCE FOR DATA: [employer] DYN 1800 OPERATION MANUAL( AUTOMATED BLOOD COUNTS [...] 2-19 YEARS EXCLUSIVE. Na 138 mmol/L 136-145 [facility] ([facility] NORMAL [...] HCT IS 5% LESS SOURCE FOR DATA: [employer] 1800 OPERATION MANUAL( AUTOMATED BLOOD COUNTS AND [...] 2-19 YEARS EXCLUSIVE. CL 104.6 mmol/L 98.0-107.0 [facility] ([facility] NORMAL RANGES Age WBC [...] HCT IS 5% LESS SOURCE FOR DATA: [employer] 1800 OPERATION MANUAL( AUTOMATED BLOOD COUNTS AND [...] HCT IS 5% LESS SOURCE FOR DATA: [employer] 1800 OPERATION MANUAL( AUTOMATED BLOOD COUNTS AND [...] 2-19 YEARS EXCLUSIVE. TP 6.9 g/dL 6.6-8.7 [facility] ([facility] NORMAL RANGES Age WBC RBC [...] HCT IS 5% LESS SOURCE FOR DATA: [employer] 1800 OPERATION MANUAL( AUTOMATED BLOOD COUNTS AND [...] 2-19 YEARS EXCLUSIVE. CA 9.8 mg/dL 8.6-10.2 [facility] ([facility] NORMAL [...] HCT IS 5% LESS SOURCE FOR DATA: [employer] 1800 OPERATION MANUAL( AUTOMATED BLOOD COUNTS AND [...] HCT IS 5% LESS SOURCE FOR DATA: [employer] 1800 OPERATION MANUAL( AUTOMATED BLOOD COUNTS AND [...] 2-19 YEARS EXCLUSIVE. Alb 4.3 g/dL 3.4-4.8 [facility] ([facility] NORMAL RANGES [...] HCT IS 5% LESS SOURCE FOR DATA: [employer] 1800 OPERATION MANUAL( AUTOMATED BLOOD COUNTS AND [...] 2-19 YEARS EXCLUSIVE. Alp 126.3 U/L 35-129 [facility] ([facility] NORMAL [...] HCT IS 5% LESS SOURCE FOR DATA: [employer] 1800 OPERATION MANUAL( AUTOMATED BLOOD COUNTS AND [...] Alt (SGPT) 13 U/L 0-41 [facility] ([facility] NORMAL RANGES Age WBC [...] HCT IS 5% LESS SOURCE FOR DATA: [employer] 1800 OPERATION MANUAL( AUTOMATED BLOOD COUNTS AND [...] HCT IS 5% LESS SOURCE FOR DATA: [employer] 1800 OPERATION MANUAL( AUTOMATED BLOOD COUNTS AND [...] YEARS EXCLUSIVE. Ast (Sgot) 19 U/L 0-40 [facility] ([facility] NORMAL [...] HCT IS 5% LESS SOURCE FOR DATA: FireEye 1800 OPERATION MANUAL( AUTOMATED BLOOD COUNTS AND [...] HCT IS 5% LESS SOURCE FOR DATA: FireEye 1800 OPERATION MANUAL( AUTOMATED BLOOD COUNTS AND [...] 2-19 YEARS EXCLUSIVE. Tbili 0.26 mg/dL 0.0-1.2 [facility] ([facility] NORMAL RANGES Age WBC [...] INDIVIDUALA AGED 2-19 YEARS EXCLUSIVE. eGFR Non-Afr. Micronesian 58 # [facility] ([facility] [...] HCT IS 5% LESS SOURCE FOR DATA: FireEye 1800 OPERATION MANUAL( AUTOMATED BLOOD COUNTS AND [...] HCT IS 5% LESS SOURCE FOR DATA: FireEye 1800 OPERATION MANUAL( AUTOMATED BLOOD COUNTS AND [...] HCT IS 5% LESS SOURCE FOR DATA: AppThwack DYN 1800 OPERATION MANUAL( AUTOMATED BLOOD COUNTS [...] 2-19 YEARS EXCLUSIVE. ID Date Data Source [id number] 08/11/2020 03:05:00 PM EDT [facility] ([facility] Name Value Range Interpretation Code Description Data Babita rce(s) Supporting Document(s) WBC 12.7 10E3/uL 4.1-10.9 Above high normal MEDEN T ([facility] NORMAL RANGES Age [...] HCT IS 5% LESS SOURCE FOR DATA: FireEye 1800 OPERATION MANUAL( AUTOMATED BLOOD COUNTS AND [...] YEARS EXCLUSIVE. HCT 45.5 % 37.0-51.0 [facility] ([facility] NORMAL RANGES [...] HCT IS 5% LESS SOURCE FOR DATA: FireEye 1800 OPERATION MANUAL( AUTOMATED BLOOD COUNTS AND [...] 2-19 YEARS EXCLUSIVE. HGB 14.9 g/dL 12.0-18.0 [facility] ([facility] NORMAL [...] HCT IS 5% LESS SOURCE FOR DATA: AppThwack DYN 1800 OPERATION MANUAL( AUTOMATED BLOOD COUNTS [...] EXCLUSIVE. RBC 4.69 10E6/uL 4.20-6.30 [facility] ([facility] NORMAL RANGES Age WBC [...] HCT IS 5% LESS SOURCE FOR DATA: FireEye 1800 OPERATION MANUAL( AUTOMATED BLOOD COUNTS AND [...] 2-19 YEARS EXCLUSIVE. MCHC 32.7 g/dL 31.0-36.0 [facility] ([facility] NORMAL RANGES Age WBC RBC [...] HCT IS 5% LESS SOURCE FOR DATA: FireEye 1800 OPERATION MANUAL( AUTOMATED BLOOD COUNTS AND [...] 2-19 YEARS EXCLUSIVE. MCV 97.0 fL 80.0-97.0 [facility] ([facility] NORMAL RANGES [...] HCT IS 5% LESS SOURCE FOR DATA: FireEye 1800 OPERATION MANUAL( AUTOMATED BLOOD COUNTS AND [...] HCT IS 5% LESS SOURCE FOR DATA: FireEye 1800 OPERATION MANUAL( AUTOMATED BLOOD COUNTS AND [...] 2-19 YEARS EXCLUSIVE. PLT 433 10E3/uL 140-440 [facility] ([facility] NORMAL RANGES Age WBC RBC [...] HCT IS 5% LESS SOURCE FOR DATA: FireEye 1800 OPERATION MANUAL( AUTOMATED BLOOD COUNTS AND [...] 2-19 YEARS EXCLUSIVE. RDW-CV 13.9 % 11.5-14.5 [facility] ([facility] NORMAL [...] HCT IS 5% LESS SOURCE FOR DATA: FireEye 1800 OPERATION MANUAL( AUTOMATED BLOOD COUNTS AND [...] HCT IS 5% LESS SOURCE FOR DATA: FireEye 1800 OPERATION MANUAL( AUTOMATED BLOOD COUNTS AND [...] 2-19 YEARS EXCLUSIVE. Neut% 81.2 % 37.0-92.0 [facility] ([facility] NORMAL RANGES [...] HCT IS 5% LESS SOURCE FOR DATA: AppThwack DYN 1800 OPERATION MANUAL( AUTOMATED BLOOD COUNTS [...] 2-19 YEARS EXCLUSIVE. MXD% 4.6 % 0.1-24.0 [facility] ([facility] NORMAL [...] HCT IS 5% LESS SOURCE FOR DATA: FireEye 1800 OPERATION MANUAL( AUTOMATED BLOOD COUNTS AND [...] HCT IS 5% LESS SOURCE FOR DATA: FireEye 1800 OPERATION MANUAL( AUTOMATED BLOOD COUNTS AND [...] 2-19 YEARS EXCLUSIVE. Lym# 1.8 10E3/uL 0.6-4.1 9+ ([facility] NORMAL RANGES Age WBC RBC [...] HCT IS 5% LESS SOURCE FOR DATA: FireEye 1800 OPERATION MANUAL( AUTOMATED BLOOD COUNTS AND [...] 2-19 YEARS EXCLUSIVE. MPV 10.6 fL 9.0-13.0 [facility] ([facility] NORMAL [...] HCT IS 5% LESS SOURCE FOR DATA: FireEye 1800 OPERATION MANUAL( AUTOMATED BLOOD COUNTS AND [...] EXCLUSIVE. MXD# 0.6 10E3/uL 0.0-1.8 [facility] ([facility] NORMAL RANGES Age WBC [...] HCT IS 5% LESS SOURCE FOR DATA: FireEye 1800 OPERATION MANUAL( AUTOMATED BLOOD COUNTS AND [...] 2-19 YEARS EXCLUSIVE. ID Date Data Source [id number] 06/12/2020 09:58:00 AM EST [facility] ([facility] Name Value Range Interpretation [...] Little GFR Left</content>
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
<content></content> ID Date Data Source [id number] 06/12/2020 09:58:00 AM EST [facility] ([facility] Name Value Range Interpretation Code Description Data Babita rce(s) Supporting Document(s) Urea nitrogen [Mass/volume] in Serum or Plasma 11 mg/dL 7 -18 Normal (applies to non-numeric results) [facility] ([facility]) ID Date Data Source [id number] 02/11/2020 04:21:00 PM EDT [facility] ([facility] Name Value Range Interpretation Code Description Data Babita rce(s) Supporting Document(s) Appearance of Urine Laboratory test result [facility] ([facility] Specific Wendell 1.020 1.00-1.03 [facility] ([facility] Color Urine Laboratory test result M EDENT ([facility] Bilirubin.total [Presence] in Urine by Test strip Laboratory test res ult [facility] ([facility] PH Urine 6.0 5.0-8.0 [facility] ([facility] Glucose Urine Laboratory test result [facility] ([facility] Blood Urine Laboratory test result M EDENT ([facility] Ketones Laboratory test result [facility] ([facility] Protein Urine Laboratory test result [facility] ([facility] Nitrite Laboratory test result [facility] ([facility] Leukocytes Laboratory test result ME DENT ([facility] Urobilinogen 0.2 EU/dl 0.2-1.0 [facility] ID Date Data Source [id number] 02/11/2020 03:35:00 PM EDT [facility] ([facility] Name Value Range Interpretation Code Description Data Babita rce(s) Supporting Document(s) Thyrotropin [Units/volume] in Serum or Plasma 0.477 ulU/mL 0. 60-4.8 Below low normal [facility] ([facility] ) ID Date Data Source [id number] 02/11/2020 03:35:00 PM EDT [facility] ([facility] Name Value Range Interpretation Code Description Data Babita rce(s) Supporting Document(s) Creatine kinase [Enzymatic activity/volume] in Serum or Plasma 58 U /L 26-192 [facility] ([facility] NORMAL RANGES Age WBC [...] HCT IS 5% LESS SOURCE FOR DATA: FireEye 1800 OPERATION MANUAL( AUTOMATED BLOOD COUNTS AND [...] HCT IS 5% LESS SOURCE FOR DATA: FireEye 1800 OPERATION MANUAL( AUTOMATED BLOOD COUNTS AND DIFF.) APPENDIX B-3 ID Date Data Source [id number] 02/11/2020 03:35:00 PM EDT [facility] ([facility] Name Value Range Interpretation Code Description Data Babita rce(s) Supporting Document(s) Trig 211 mg/dL 40-200 Above high normal [facility] ([facility] NORMAL RANGES Age WBC [...] HCT IS 5% LESS SOURCE FOR DATA: AppThwack DYN 1800 OPERATION MANUAL( AUTOMATED BLOOD COUNTS [...] HCT IS 5% LESS SOURCE FOR DATA: FireEye 1800 OPERATION MANUAL( AUTOMATED BLOOD COUNTS AND DIFF.) APPENDIX B-3 Chol 155 mg/dL 0-200 [facility] ([facility] NORMAL RANGES Age WBC RBC [...] HCT IS 5% LESS SOURCE FOR DATA: AppThwack DYN 1800 OPERATION MANUAL( AUTOMATED BLOOD COUNTS [...] HCT IS 5% LESS SOURCE FOR DATA: FireEye 1800 OPERATION MANUAL( AUTOMATED BLOOD COUNTS AND DIFF.) APPENDIX B-3 Cho/HDL Ratio 2.3 CALC [facility] ([facility] NORMAL RANGES Age WBC [...] HCT IS 5% LESS SOURCE FOR DATA: FireEye 1800 OPERATION MANUAL( AUTOMATED BLOOD COUNTS AND [...] HCT IS 5% LESS SOURCE FOR DATA: FireEye 1800 OPERATION MANUAL( AUTOMATED BLOOD COUNTS AND DIFF.) APPENDIX B-3 LDL_C 44 Calc 75-129 Below low normal [facility] ( [facility] NORMAL RANGES [...] HCT IS 5% LESS SOURCE FOR DATA: FireEye 1800 OPERATION MANUAL( AUTOMATED BLOOD COUNTS AND [...] HCT IS 5% LESS SOURCE FOR DATA: FireEye 1800 OPERATION MANUAL( AUTOMATED BLOOD COUNTS AND [...] HCT IS 5% LESS SOURCE FOR DATA: FireEye 1800 OPERATION MANUAL( AUTOMATED BLOOD COUNTS AND [...] HCT IS 5% LESS SOURCE FOR DATA: FireEye 1800 OPERATION MANUAL( AUTOMATED BLOOD COUNTS AND DIFF.) APPENDIX B-3 ID Date Data Source [id number] 02/11/2020 03:35:00 PM EDT [facility] ([facility] Name Value Range Interpretation Code Description Data Babita rce(s) Supporting Document(s) Glu 94 mg/dL 70-110 [facility] ([facility] NORMAL RANGES Age WBC [...] HCT IS 5% LESS SOURCE FOR DATA: FireEye 1800 OPERATION MANUAL( AUTOMATED BLOOD COUNTS AND [...] DIFF.) APPENDIX B-3 BUN 17 mg/dL 8-23 [facility] NORMAL RANGES Age WBC RBC HGB [...] HCT IS 5% LESS SOURCE FOR DATA: FireEye 1800 OPERATION MANUAL( AUTOMATED BLOOD COUNTS AND DIFF.) APPENDIX B-3 Creat 0.9 mg/dL 0.5-1.0 [facility] ([facility] NORMAL RANGES Age WBC RBC [...] HCT IS 5% LESS SOURCE FOR DATA: FireEye 1800 OPERATION MANUAL( AUTOMATED BLOOD COUNTS AND [...] HCT IS 5% LESS SOURCE FOR DATA: FireEye 1800 OPERATION MANUAL( AUTOMATED BLOOD COUNTS AND DIFF.) APPENDIX B-3 Na 140 mmol/L 136-145 [facility] ([facility] NORMAL RANGES Age WBC [...] HCT IS 5% LESS SOURCE FOR DATA: AppThwack DYN 1800 OPERATION MANUAL( AUTOMATED BLOOD COUNTS [...] HCT IS 5% LESS SOURCE FOR DATA: FireEye 1800 OPERATION MANUAL( AUTOMATED BLOOD COUNTS AND DIFF.) APPENDIX B-3 BUN/Creatinine Ratio 18.9 CALC 9+ ([facility] NORMAL RANGES Age WBC [...] HCT IS 5% LESS SOURCE FOR DATA: FireEye 1800 OPERATION MANUAL( AUTOMATED BLOOD COUNTS AND [...] DIFF.) APPENDIX B-3 Co2 23.6 mmol/L 22.0-29.0 [facility] ([facility] NORMAL RANGES Age WBC RBC [...] HCT IS 5% LESS SOURCE FOR DATA: FireEye 1800 OPERATION MANUAL( AUTOMATED BLOOD COUNTS AND [...] DIFF.) APPENDIX B-3 CL 105.5 mmol/L 98.0-107.0 [facility] ([facility] NORMAL RANGES Age WBC [...] HCT IS 5% LESS SOURCE FOR DATA: FireEye 1800 OPERATION MANUAL( AUTOMATED BLOOD COUNTS AND [...] DIFF.) APPENDIX B-3 K 4.8 mmol/L 3.5-5.1 [facility] ([facility] NORMAL RANGES Age WBC [...] HCT IS 5% LESS SOURCE FOR DATA: FireEye 1800 OPERATION MANUAL( AUTOMATED BLOOD COUNTS AND [...] DIFF.) APPENDIX B-3 CA 9.5 mg/dL 8.6-10.2 [facility] ([facility] NORMAL RANGES Age WBC RBC [...] DIFF.) APPENDIX B-3 TP 6.6 g/dL 6.6-8.7 [facility] ([facility] NORMAL RANGES Age WBC RBC [...] HCT IS 5% LESS SOURCE FOR DATA: FireEye 1800 OPERATION MANUAL( AUTOMATED BLOOD COUNTS AND DIFF.) APPENDIX B-3 Alb 4.5 g/dL 3.4-4.8 [facility] ([facility] NORMAL RANGES Age WBC RBC [...] HCT IS 5% LESS SOURCE FOR DATA: FireEye 1800 OPERATION MANUAL( AUTOMATED BLOOD COUNTS AND [...] HCT IS 5% LESS SOURCE FOR DATA: FireEye 1800 OPERATION MANUAL( AUTOMATED BLOOD COUNTS AND DIFF.) APPENDIX B-3 A/G Ratio 2.1 CALC [facility] ([facility] NORMAL RANGES Age WBC RBC [...] HCT IS 5% LESS SOURCE FOR DATA: FireEye 1800 OPERATION MANUAL( AUTOMATED BLOOD COUNTS AND [...] HCT IS 5% LESS SOURCE FOR DATA: FireEye 1800 OPERATION MANUAL( AUTOMATED BLOOD COUNTS AND DIFF.) APPENDIX B-3 Alt (SGPT) 15 U/L 0-41 [facility] ([facility] NORMAL RANGES Age WBC [...] HCT IS 5% LESS SOURCE FOR DATA: FireEye 1800 OPERATION MANUAL( AUTOMATED BLOOD COUNTS AND [...] HCT IS 5% LESS SOURCE FOR DATA: AppThwack DYN 1800 OPERATION MANUAL( AUTOMATED BLOOD COUNTS AND DIFF.) APPENDIX B-3 Alp 92.9 U/L 35-129 [facility] ([facility] NORMAL RANGES Age WBC RBC [...] HCT IS 5% LESS SOURCE FOR DATA: FireEye 1800 OPERATION MANUAL( AUTOMATED BLOOD COUNTS AND [...] HCT IS 5% LESS SOURCE FOR DATA: FireEye 1800 OPERATION MANUAL( AUTOMATED BLOOD COUNTS AND DIFF.) APPENDIX B-3 Globulin 2.2 CALC [facility] ([facility] NORMAL RANGES Age WBC [...] HCT IS 5% LESS SOURCE FOR DATA: FireEye 1800 OPERATION MANUAL( AUTOMATED BLOOD COUNTS AND [...] HCT IS 5% LESS SOURCE FOR DATA: FireEye 1800 OPERATION MANUAL( AUTOMATED BLOOD COUNTS AND DIFF.) APPENDIX B-3 Tbili 0.24 mg/dL 0.0-1.2 [facility] ([facility] NORMAL RANGES [...] HCT IS 5% LESS SOURCE FOR DATA: FireEye 1800 OPERATION MANUAL( AUTOMATED BLOOD COUNTS AND [...] APPENDIX B-3 Ast (Sgot) 15 U/L 0-40 [facility] ([facility] NORMAL RANGES Age WBC RBC HGB [...] HCT IS 5% LESS SOURCE FOR DATA: FireEye 1800 OPERATION MANUAL( AUTOMATED BLOOD COUNTS AND DIFF.) APPENDIX B-3 Osmolality-Calculated 280.2 CALC MED [facility] ([facility] NORMAL RANGES Age [...] HCT IS 5% LESS SOURCE FOR DATA: FireEye 1800 OPERATION MANUAL( AUTOMATED BLOOD COUNTS AND [...] HCT IS 5% LESS SOURCE FOR DATA: FireEye 1800 OPERATION MANUAL( AUTOMATED BLOOD COUNTS AND DIFF.) APPENDIX B-3 Anion Gap 15 mmol/L [facility] ([facility] NORMAL RANGES Age WBC RBC [...] HCT IS 5% LESS SOURCE FOR DATA: FireEye 1800 OPERATION MANUAL( AUTOMATED BLOOD COUNTS AND [...] HCT IS 5% LESS SOURCE FOR DATA: FireEye 1800 OPERATION MANUAL( AUTOMATED BLOOD COUNTS AND DIFF.) APPENDIX B-3 eGFR Non-Afr. Micronesian 67 # [facility] ([facility] [...] HCT IS 5% LESS SOURCE FOR DATA: FireEye 1800 OPERATION MANUAL( AUTOMATED BLOOD COUNTS AND [...] HCT IS 5% LESS SOURCE FOR DATA: FireEye 1800 OPERATION MANUAL( AUTOMATED BLOOD COUNTS AND [...] HCT IS 5% LESS SOURCE FOR DATA: FireEye 1800 OPERATION MANUAL( AUTOMATED BLOOD COUNTS AND [...] DIFF.) APPENDIX B-3 ID Date Data Source [id number] 02/11/2020 03:35:00 PM EDT [facility] ([facility] Name Value Range Interpretation Code Description Data Babita rce(s) Supporting Document(s) WBC 13.8 10E3/uL 4.1-10.9 Above high normal MED[facility] T ([facility] NORMAL RANGES Age [...] HCT IS 5% LESS SOURCE FOR DATA: FireEye 1800 OPERATION MANUAL( AUTOMATED BLOOD COUNTS AND [...] DIFF.) APPENDIX B-3 RBC 4.48 10E6/uL 4.20-6.30 [facility] ([facility] NORMAL RANGES Age WBC RBC [...] HCT IS 5% LESS SOURCE FOR DATA: FireEye 1800 OPERATION MANUAL( AUTOMATED BLOOD COUNTS AND [...] HCT IS 5% LESS SOURCE FOR DATA: AppThwack DYN 1800 OPERATION MANUAL( AUTOMATED BLOOD COUNTS AND DIFF.) APPENDIX B-3 HGB 14.4 g/dL 12.0-18.0 [facility] ([facility] NORMAL RANGES Age WBC RBC [...] HCT IS 5% LESS SOURCE FOR DATA: FireEye 1800 OPERATION MANUAL( AUTOMATED BLOOD COUNTS AND DIFF.) APPENDIX B-3 HCT 43.9 % 37.0-51.0 [facility] ([facility] NORMAL RANGES Age WBC RBC [...] HCT IS 5% LESS SOURCE FOR DATA: AppThwack DYN 1800 OPERATION MANUAL( AUTOMATED BLOOD COUNTS [...] HCT IS 5% LESS SOURCE FOR DATA: FireEye 1800 OPERATION MANUAL( AUTOMATED BLOOD COUNTS AND DIFF.) APPENDIX B-3 MCV 98.0 fL 80.0-97.0 Above high normal [facility] ([facility] NORMAL RANGES [...] HCT IS 5% LESS SOURCE FOR DATA: FireEye 1800 OPERATION MANUAL( AUTOMATED BLOOD COUNTS AND [...] HCT IS 5% LESS SOURCE FOR DATA: FireEye 1800 OPERATION MANUAL( AUTOMATED BLOOD COUNTS AND DIFF.) APPENDIX B-3 MCH 32.1 pg 26.0-32.0 Above high normal [facility] ([facility] NORMAL RANGES Age [...] HCT IS 5% LESS SOURCE FOR DATA: FireEye 1800 OPERATION MANUAL( AUTOMATED BLOOD COUNTS AND [...] DIFF.) APPENDIX B-3 MCHC 32.8 g/dL 31.0-36.0 [facility] ([facility] NORMAL RANGES [...] HCT IS 5% LESS SOURCE FOR DATA: FireEye 1800 OPERATION MANUAL( AUTOMATED BLOOD COUNTS AND [...] DIFF.) APPENDIX B-3 PLT 356 10E3/uL 140-440 [facility] ([facility] NORMAL RANGES Age WBC RBC HGB [...] HCT IS 5% LESS SOURCE FOR DATA: FireEye 1800 OPERATION MANUAL( AUTOMATED BLOOD COUNTS AND [...] HCT IS 5% LESS SOURCE FOR DATA: FireEye 1800 OPERATION MANUAL( AUTOMATED BLOOD COUNTS AND DIFF.) APPENDIX B-3 RDW-CV 13.8 % 11.5-14.5 [facility] NORMAL RANGES Age WBC RBC [...] HCT IS 5% LESS SOURCE FOR DATA: FireEye 1800 OPERATION MANUAL( AUTOMATED BLOOD COUNTS AND [...] DIFF.) APPENDIX B-3 MXD% 6.4 % 0.1-24.0 [facility] ([facility] NORMAL RANGES Age WBC RBC [...] DIFF.) APPENDIX B-3 Lym% 12.3 % 10.0-58.5 [facility] ([facility] NORMAL RANGES Age WBC RBC [...] HCT IS 5% LESS SOURCE FOR DATA: AppThwack DYN 1800 OPERATION MANUAL( AUTOMATED BLOOD COUNTS [...] HCT IS 5% LESS SOURCE FOR DATA: FireEye 1800 OPERATION MANUAL( AUTOMATED BLOOD COUNTS AND DIFF.) APPENDIX B-3 Neut% 81.3 % 37.0-92.0 [facility] ([facility] NORMAL RANGES Age WBC RBC [...] HCT IS 5% LESS SOURCE FOR DATA: AppThwack DYN 1800 OPERATION MANUAL( AUTOMATED BLOOD COUNTS [...] HCT IS 5% LESS SOURCE FOR DATA: FireEye 1800 OPERATION MANUAL( AUTOMATED BLOOD COUNTS AND DIFF.) APPENDIX B-3 Lym# 1.7 10E3/uL 0.6-4.1 [facility] ([facility] NORMAL RANGES Age WBC RBC [...] HCT IS 5% LESS SOURCE FOR DATA: FireEye 1800 OPERATION MANUAL( AUTOMATED BLOOD COUNTS AND [...] HCT IS 5% LESS SOURCE FOR DATA: AppThwack DYN 1800 OPERATION MANUAL( AUTOMATED BLOOD COUNTS AND DIFF.) APPENDIX B-3 MXD# 0.9 10E3/uL 0.0-1.8 [facility] ([facility] NORMAL RANGES Age WBC RBC [...] HCT IS 5% LESS SOURCE FOR DATA: FireEye 1800 OPERATION MANUAL( AUTOMATED BLOOD COUNTS AND [...] HCT IS 5% LESS SOURCE FOR DATA: FireEye 1800 OPERATION MANUAL( AUTOMATED BLOOD COUNTS AND [...] DIFF.) APPENDIX B-3 MPV 10.4 fL 9.0-13.0 [facility] ([facility] NORMAL RANGES [...] HCT IS 5% LESS SOURCE FOR DATA: FireEye 1800 OPERATION MANUAL( AUTOMATED BLOOD COUNTS AND [...] EDT Former Smoker completed Former Smoker [email or web address] ([facility]) Smoking 01/25/2021 12:00:00 AM EDT Former Smoker completed Former Smoker eCW1 ([facility]) Smoking 01/25/2021 12:00:00 AM EDT Former Smoker completed Former Smoker eCW1 ([facility]) Smoking 01/25/2021 12:00:00 AM EDT Former Smoker completed Former Smoker eCW1 ([facility]) Alcohol intake 01/11/2021 12:00:00 AM EDT Current non-d luz maria of alcohol (finding) completed Current non-drinker of alcohol (finding) [facility] Tobacco use and exposure 01/11/2021 12:00:00 AM EDT Never used co mpleted Never used [facility] Smoking 01/11/2021 12:00:00 AM EDT Former smoker completed Former smoker [facility] Smoking 12/24/2020 12:00:00 AM EDT - 08/03/2012 12:00:00 AM EST Patient is a former smoker completed Patient is a former smoker ALVINA ([facility], ) Smoking 12/10/2020 12:00:00 AM EDT Former Smoker completed Former Smoker eCW1 ([facility]) Smoking 12/10/2020 12:00:00 AM EDT Former Smoker completed Former Smoker eCW1 ([facility]) Smoking 12/10/2020 12:00:00 AM EDT Former Smoker completed Former Smoker eCW1 ([facility]) Smoking 12/10/2020 12:00:00 AM EDT Former Smoker completed Former Smoker eCW1 ([facility]) Smoking 12/10/2020 12:00:00 AM EDT Former Smoker completed Former Smoker eCW1 ([facility]) Smoking 12/10/2020 12:00:00 AM EDT Former Smoker completed Former Smoker eCW1 ([facility]) Smoking 12/10/2020 12:00:00 AM EDT Former Smoker completed Former Smoker eCW1 ([facility]) Smoking 11/05/2020 12:00:00 AM EDT Former Smoker completed Former Smoker eCW1 ([facility]) Smoking 11/05/2020 12:00:00 AM EDT Former Smoker completed Former Smoker eCW1 ([facility]) Smoking 11/05/2020 12:00:00 AM EDT Former Smoker completed Former Smoker eCW1 ([facility]) Smoking 11/05/2020 12:00:00 AM EDT Former Smoker completed Former Smoker eCW1 ([facility]) Smoking 11/05/2020 12:00:00 AM EDT Former Smoker completed Former Smoker eCW1 ([facility]) Smoking 11/05/2020 12:00:00 AM EDT Former Smoker completed Former Smoker eCW1 ([facility]) Smoking 10/02/2020 12:00:00 AM EDT Former Smoker completed Former Smoker eCW1 ([facility]) Smoking 10/02/2020 12:00:00 AM EDT Former Smoker completed Former Smoker eCW1 ([facility]) Smoking 10/02/2020 12:00:00 AM EDT Former Smoker completed Former Smoker eCW1 ([facility]) Smoking 10/02/2020 12:00:00 AM EDT Former Smoker completed Former Smoker eCW1 ([facility]) Smoking 10/02/2020 12:00:00 AM EDT Former Smoker completed Former Smoker eCW1 ([facility]) Smoking 10/02/2020 12:00:00 AM EDT Former Smoker completed Former Smoker eCW1 ([facility]) Smoking 08/11/2020 12:00:00 AM EDT [...] Body weight 115 [lb_av] 115 [lb_av] eCW1 ([facility]) Body height 62 [in_i] 62 [in_i] eCW1 ([facility]) Body mass index (BMI) [Ratio] 21.03 kg/m2 21.03 kg/m2 W1 ([facility]) Heart rate 67 /min 67 /min eCW1 ([facility]) Respiratory rate 20 /min 20 /min [facility] Body temperature 96.7 [degF] 96.7 [degF] eCW1 ( [facility]) Systolic blood pressure 92 mm[Hg] 92 mm[Hg] e CW1 ([facility]) Diastolic blood pressure 58 mm[Hg] 58 mm[Hg] eCW1 ([facility]) Systolic blood pressure 118 mm[Hg] 118 mm[Hg] M EDENT ([facility], ) Diastolic blood pressure 70 mm[Hg] 70 mm[Hg] [facility] [facility], [facility] Heart rate 78 /min 78 /min MEDENT ([facility], ) Oxygen saturation in Arterial blood by Pulse oximetry 98 % 98 % MEDYUE ([facility], ) Room Air Body weight 116.00 [lb_av] 116.00 [lb_av] MEDEN T ([facility], ) Body weight 52.618 kg 52.618 kg MEDENT ([facility], ) Body weight 122 [lb_av] 122 [lb_av] eCW1 ([facility]) Body height 62 [in_i] 62 [in_i] eCW1 ([facility]) Body mass index (BMI) [Ratio] 22.31 kg/m2 22.31 kg/m2 W1 ([facility]) Heart rate 92 /min 92 /min eCW1 ([facility]) Respiratory rate 18 /min 18 /min eCW1 [facility] Body temperature 97.2 [degF] 97.2 [degF] eCW1 ( [facility]) Systolic blood pressure 110 mm[Hg] 110 mm[Hg] e CW1 ([facility]) Diastolic blood pressure 68 mm[Hg] 68 mm[Hg] eCW1 ([facility]) Body temperature 98.1 [degF] 98.1 [degF] [facility] Body temperature 98.1 [degF] 98.1 [degF] [facility] ([facility]) Oxygen saturation in Arterial blood by Pulse oximetry 99 % 99 % [facility] ([facility]) Respiratory rate 18 /min 18 /min [facility] ( [facility]) Body temperature 98.7 [degF] 98.7 [degF] [facility] ([facility]) Body height 60 [in_i] 60 [in_i] [facility] ([facility]) 5'0" Body weight 123.00 [lb_av] 123.00 [lb_av] MEDEN T ([facility]) Body mass index (BMI) [Ratio] 24.0 kg/m2 24.0 k g/m2 [facility] ([facility]) [place] body weight 100 [lb_av] 100 [lb_av] MEDEN T ([facility]) Body weight 55.793 kg 55.793 kg [facility] ([facility]) Body surface area Derived from formula 1.52 m2 1.52 m2 [facility] ([facility]) Body height 60 [in_i] 60 [in_i] [facility] ([facility]) 5'0" Body temperature 98.7 [degF] 98.7 [degF] [facility] ([facility]) Body weight 123.00 [lb_av] 123.00 [lb_av] MEDEN T ([facility]) Body mass index (BMI) [Ratio] 24.0 kg/m2 24.0 k g/m2 [facility] ([facility], ) Oxygen saturation in Arterial blood by Pulse oximetry 99 % 99 % [facility] ([facility]) Respiratory rate 18 /min 18 /min [facility] ( [facility]) Systolic blood pressure 147 mm[Hg] 147 mm[Hg] M EDENT ([facility]) Diastolic blood pressure 80 mm[Hg] 80 mm[Hg] MEDENT ([facility]) [place] body weight 100 [lb_av] 100 [lb_av] MEDEN T ([facility]) Heart rate 76 /min 76 /min [facility] ([facility]) Body weight 55.793 kg 55.793 kg [facility] ([facility]) Body surface area Derived from formula 1.52 m2 1.52 m2 [facility] ([facility]) Body weight 127 [lb_av] 127 [lb_av] eCW1 ([facility]) Body height 62 [in_i] 62 [in_i] eCW1 ([facility]) Body mass index (BMI) [Ratio] 23.23 kg/m2 23.23 kg/m2 eCW1 ([facility]) Heart rate 74 /min 74 /min eCW1 ([facility]) Respiratory rate 18 /min 18 /min eCW1 ([facility] Body temperature 97.3 [degF] 97.3 [degF] eCW1 ( [facility]) Systolic blood pressure 120 mm[Hg] 120 mm[Hg] e CW1 ([facility]) Diastolic blood pressure 80 mm[Hg] 80 mm[Hg] eCW1 ([facility]) Systolic blood pressure 160 mm[Hg] 160 mm[Hg] M EDENT ([facility], ) Diastolic blood pressure 90 mm[Hg] 90 mm[Hg] [facility] ([facility], ) Heart rate 74 /min 74 /min [facility] ([facility]) Oxygen saturation in Arterial blood by Pulse oximetry 93 % 93 % [facility] ([facility]) Room Air Body height 60 [in_i] 60 [in_i] MEDENT ([facility]) 5'0" [place] body weight 100 [lb_av] 100 [lb_av] MEDEN T ([facility]) Body weight 57.154 kg 57.154 kg MEDENT ([facility]) Body surface area Derived from formula 1.53 m2 1.53 m2 MEDENT ([facility]) Body weight 126.00 [lb_av] 126.00 [lb_av] MEDEN T ([facility]) Body mass index (BMI) [Ratio] 24.6 kg/m2 24.6 k g/m2 MEDENT ([facility]) Systolic blood pressure 128 mm[Hg] 128 mm[Hg] M EDENT ([facility] Diastolic blood pressure 88 mm[Hg] 88 mm[Hg] MEDENT ([facility] Body temperature 96.9 [degF] 96.9 [degF] MEDENT ([facility] Heart rate 80 /min 80 /min MEDENT ([facility] Respiratory rate 16 /min 16 /min MEDENT ( [facility] Body height 60 [in_i] 60 [in_i] MEDENT ([facility] 5'0" Body weight 128.00 [lb_av] 128.00 [lb_av] MEDEN T ([facility] [place] body weight 100 [lb_av] 100 [lb_av] MEDEN T ([facility] Body mass index (BMI) [Ratio] 25.0 kg/m2 25.0 k g/m2 MEDENT ([facility] Oxygen saturation in Arterial blood by Pulse oximetry 97 % 97 % MEDENT ([facility] Respiratory rate 16 /min 16 /min MEDENT ( [facility] Body height 60 [in_i] 60 [in_i] MEDENT ([facility] 5'0" Diastolic blood pressure 88 mm[Hg] 88 mm[Hg] MEDENT ([facility] Systolic blood pressure 126 mm[Hg] 126 mm[Hg] M EDENT ([facility] Body temperature 97.3 [degF] 97.3 [degF] MEDENT ([facility] Heart rate 68 /min 68 /min MEDENT ([facility] Body weight 130.00 [lb_av] 130.00 [lb_av] MEDEN T ([facility] [place] body weight 100 [lb_av] 100 [lb_av] MEDEN T ([facility] Body mass index (BMI) [Ratio] 25.4 kg/m2 25.4 k g/m2 MEDENT ([facility] Oxygen saturation in Arterial blood by Pulse oximetry 95 % 95 % MEDENT ([facility] Body weight 132.00 [lb_av] 132.00 [lb_av] MEDEN T ([facility] Body mass index (BMI) [Ratio] 25.8 kg/m2 25.8 k g/m2 MEDENT ([facility] Systolic blood pressure 134 mm[Hg] 134 mm[Hg] M EDENT ([facility] Body temperature 97.7 [degF] 97.7 [degF] MEDENT ([facility] Diastolic blood pressure 90 mm[Hg] 90 mm[Hg] MEDENT ([facility] Heart rate 66 /min 66 /min MEDENT ([facility] Oxygen saturation in Arterial blood by Pulse oximetry 97 % 97 % MEDENT ([facility] Respiratory rate 16 /min 16 /min MEDENT ( [facility] Body height 60 [in_i] 60 [in_i] MEDENT ([facility] 5'0" [place] body weight 100 [lb_av] 100 [lb_av] MEDEN T ([facility] Body weight 132.00 [lb_av] 132.00 [lb_av] MEDEN T ([facility] [place] body weight 100 [lb_av] 100 [lb_av] MEDEN T ([facility] Systolic blood pressure 124 mm[Hg] 124 mm[Hg] M EDENT ([facility] Diastolic blood pressure 84 mm[Hg] 84 mm[Hg] MEDENT ([facility] Body temperature 98.3 [degF] 98.3 [degF] RAYNEENT ([facility] Heart rate 84 /min 84 /min MEDENT ([facility] Respiratory rate 16 /min 16 /min MEDYUE ( [facility] Body height 60 [in_i] 60 [in_i] ALVINA ([facility] 5'0" Body mass index (BMI) [Ratio] 25.8 kg/m2 25.8 k g/m2 ALVINA ([facility] Oxygen saturation in Arterial blood by Pulse oximetry 97 % 97 % ALVINA ([facility] Patient Treatment Plan of Care Planned Activity Planned Date Details Description Data Source (s) Amlodipine 5 MG Oral Tablet 02/04/2021 12:00:00 AM EDT eCW1 ([facility]) Amlodipine 5 MG Oral Tablet 02/04/2021 12:00:00 AM EDT eCW1 ([facility]) Amlodipine 5 MG Oral Tablet 02/04/2021 12:00:00 AM EDT eCW1 ([facility]) Blood Pressure Cuff - 01/25/2021 12:00:00 AM EDT eCW1 ([facility]) Blood Pressure Cuff - 01/25/2021 12:00:00 AM EDT eCW1 ([facility]) Blood Pressure Cuff - 01/25/2021 12:00:00 AM EDT eCW1 ([facility]) Blood Pressure Cuff - 01/25/2021 12:00:00 AM EDT eCW1 ([facility]) Prednisone 5 MG Oral Tablet 01/18/2021 12:00:00 AM EDT eCW1 ([facility]) Nystatin 814230 UNT/ML Oral Suspension 12/07/2020 12:00:00 AM EDT eCW1 ([facility]) Nystatin 820331 UNT/ML Oral Suspension 12/07/2020 12:00:00 AM EDT eCW1 ([facility]) Nystatin [id number] UNT/ML Oral Suspension 12/07/2020 12:00:00 AM EDT eCW1 ([facility]) Acetaminophen 325 MG / Hydrocodone Bitartrate 5 MG Ora l Tablet 11/05/2020 12:00:00 AM EDT eCW1 ([facility]) Acetaminophen 325 MG / Hydrocodone Bitartrate 5 MG Ora l Tablet 11/05/2020 12:00:00 AM EDT eCW1 ([facility]) Acetaminophen 325 MG / Hydrocodone Bitartrate 5 MG Ora l Tablet 11/05/2020 12:00:00 AM EDT eCW1 ([facility])
[2021-03-31 09:52] LABS: BASO # 0.1 10^3/uL (0.0-0.2); EOS # 0.1 10^3/uL (0.0-0.5); HEMATOCRIT 28.2 % (36.0-47.0); HEMOGLOBIN 8.4 g/dl (12.0-15.5); LYMPH # 0.9 10^3/uL (1.5-5.0); LYMPH % 10.3 % (24.0-44.0); MEAN CORPUSCULAR HEMOGLOBIN 34.1 pg (27.0-33.0); MEAN CORPUSCULAR HGB CONC 29.8 g/dl (32.0-36.5); MONO # 0.9 10^3/uL (0.0-0.8); MONO % 11.3 % (2.0-8.0); NEUTROPHILS # 6.3 10^3/uL (1.5-8.5); NEUTROPHILS % 75.9 % (36.0-66.0); PLATELET COUNT, AUTOMATED 212 10^3/uL (150-450); RED BLOOD COUNT 2.46 10^6/uL (4.00-5.40); WHITE BLOOD COUNT 8.3 10^3/uL (4.0-10.0)
[2021-03-31 09:53] LABS: MEAN CORPUSCULAR VOLUME 114.6 fl (80.0-96.0)
[2021-03-31 10:12] LABS: ALBUMIN 2.5 GM/DL (3.2-5.2); ALT/SGPT 28 U/L (12-78); BILIRUBIN,DIRECT 0.1 MG/DL (0.0-0.2); BILIRUBIN,TOTAL 0.3 MG/DL (0.2-1.0); BLOOD UREA NITROGEN 8 MG/DL (7-18); CALCIUM LEVEL 8.2 MG/DL (8.8-10.2); CARBON DIOXIDE LEVEL 30 MEQ/L (21-32); CHLORIDE LEVEL 109 MEQ/L (98-107); CREATININE FOR GFR 0.45 MG/DL (0.55-1.30); GLOMERULAR FILTRATION RATE > 60.0 (>45); GLUCOSE, FASTING 85 MG/DL (70-100); LIPASE 78 U/L (73-393); POTASSIUM SERUM 3.3 MEQ/L (3.5-5.1); SODIUM LEVEL 144 MEQ/L (136-145); TOTAL PROTEIN 5.6 GM/DL (6.4-8.2)
[2021-03-31 10:21] LABS: ANISOCYTOSIS 2+
[2021-03-31 10:22] LABS: HYPOCHROMASIA 1+
[2021-03-31 10:23] LABS: STOMATOCYTES 1+
[2021-03-31 10:41] LABS: PLATELET ESTIMATE NORMAL (NORMAL)
[2021-03-31] MEDS ORDERED: ACETAMINOPHEN 325 MG TAB PO ONE (11:45)
[2021-03-31] MEDS ORDERED: ISOVUE-370 76% 100ML VIAL As Ordered ONE (11:45)
--- NOTE | 2021-03-31 12:50 | REP ---
INDICATION: right renal mass. COMPARISON: CT chest 03/19/2021 TECHNIQUE: CT abdomen and pelvis performed without IV contrast. CT abdomen pelvis performed with IV contrast as well, following intravenous administration of 100 cc of Isovue 370. Sagittal, coronal and 3D MIP reconstruction images are performed. Delayed images were also obtained. FINDINGS: Lung bases: Chronic changes in the left lung base are stable. Right lung bases clear. Heart size unchanged. Liver: No hepatic mass, cyst, biliary dilatation or adjacent ascites. No hepatomegaly. Gallbladder: No calcified stone or mass. Spleen: Homogeneous without mass or adjacent ascites. Adrenals: Normal. Pancreas: Normal. Kidneys: Previously noted upper pole right renal cyst that had changes on last month's CT shows complex features with irregular thickened seth at its base and nodularity there. It is mostly exophytic but has a cortical component. Measures 2.4 vertically by 2.7 cm transverse by 1.5 cm AP. No calcification in that mass or the adjacent kidney/collecting system. No other right renal lesion. Right renal collecting system and ureter unremarkable. Left kidney shows an extrarenal pelvis but is otherwise unremarkable. Its collecting system and ureter were also unremarkable. Small and large bowel: Small bowel loops unremarkable. Colon without colitis or diverticulitis, no stricture or mass.. Aorta: No aortic aneurysm or dissection. Free fluid: There is no ascites or free air in the abdomen or pelvis. Adenopathy: None. Appendix: Not inflamed. Osseous structures: No lytic or destructive lesions. No fractures or focal bone lesions. Some minor degenerative changes seen. Pelvis: Bladder unremarkable. Uterus retroverted tilted towards the right but not enlarged. No pelvic mass, distal ureteral dilatation or stone. No bladder stone. Small bowel loops and colon in the pelvis were unremarkable. No ventral or inguinal hernia. IMPRESSION: 1. Findings of the right kidney suggest Bosniak class 3 indeterminate cystic mass. It has thick multiple septations and mural nodule appearance. Urologic referral recommended as malignant change is possible. 2. I do not see other significant findings in the abdomen or pelvis. The chronic changes in the left lung base appears stable. <Electronically signed by Gilbert Sky > 03/31/21 [id number]
[2021-03-31] MEDS ORDERED: GI COCKTAIL 50ML BTL(HYOSCYAMINE/MAALOX/LIDOCAINE VISCOUS)(1:3:1) PO ONE (15:50)
[2021-03-31 16:49] VITALS: BP 134/77
[2021-04-01] MEDS ORDERED: MEMA10TA19 PO (08:31)
[2021-04-01] MEDS ORDERED: MEMA1TAB3 PO (08:33)
[2021-04-01] MEDS ORDERED: OXYC-517 PO ×2 (11:46→14:56)
== END 2021-03-31 17:12 | disposition home or self-care (01) ==
LOC: M ED 08:42
DX: N28.89 Other specified disorders of kidney and ureter (principal); K29.00 Acute gastritis without bleeding; I25.10 Atherosclerotic heart disease of native coronary artery without angina pectoris; I11.9 Hypertensive heart disease without heart failure; E78.5 Hyperlipidemia, unspecified; J44.9 Chronic obstructive pulmonary disease, unspecified; K21.9 Gastro-esophageal reflux disease without esophagitis; Z79.899 Other long term (current) drug therapy; Z88.1 Allergy status to other antibiotic agents; Z88.2 Allergy status to sulfonamides; Z88.5 Allergy status to narcotic agent; Z86.018 Personal history of other benign neoplasm; Z87.891 Personal history of nicotine dependence
CPT/HCPCS: 36415; 74178; 80048; 80076; 83605; 83690; 85025; 87040; 87505; 99285; Q9967

== ENCOUNTER → 2021-04-12 | Outpatient (CLI) | payer MEDICARE, MEDICAID ==
[~2021-04-12] MED LIST changes: +MEMA10TA19 PO; +MEMA1TAB3 PO; +PROHANCE 279.3MG/ML 15ML VIAL As Ordered ONE
--- NOTE | 2021-04-12 11:30 | REP ---
INDICATION: RT RENAL MASS. COMPARISON: Previous CT 03/31/2021 reviewed TECHNIQUE: Pre and post contrast 3T MRI of the kidneys was performed utilizing various sequences. Gadolinium utilized: 10 cc ProHance FINDINGS: Seen arising from the superior pole of the right kidney there is a 2 cm sized enhancing mass which abuts multiple tiny septated cystic structures. There is no abnormal perinephric fluid. There is no evidence of hydronephrosis. There is no para-aortic adenopathy. The imaged portion of the liver is within normal limits. The spleen, pancreas, and adrenal glands are within normal limits. There is no evidence of free fluid. No cortical or marrow signal abnormality is seen involving the imaged osseous structures. IMPRESSION: Seen arising from the superior pole of the right kidney there is a Bosniak class 4 two cm sized enhancing mass which abuts Bosniak class 3 thickly septated cysts the septae of which enhance. This is consistent with a malignant lesion and lesion which is highly suspicious for malignancy. <Electronically signed by Joe Moss > 04/12/21 [id number]
== END ==
LOC: M RAD 09:26
PROVIDERS: ATTEND Internal Medicine Medical Oncology
DX: N28.81 Hypertrophy of kidney (principal); R93.429 Abnormal radiologic findings on diagnostic imaging of unspecified kidney
CPT/HCPCS: 74183; A9576

== ENCOUNTER 2021-04-21 09:45 | Outpatient (RCR) | payer MEDICARE, MEDICAID ==
[~2021-04-21 09:45] MED LIST changes: +ASPI-1 PO; +OMEP-173; +OMEP-173 PO; -OMEP-218; -OMEP-218 PO; -PROC10TA4 PO; +PROC10TA5 PO; -PROHANCE 279.3MG/ML 15ML VIAL As Ordered ONE
[2021-05-04] MEDS ORDERED: DRON2.5C11 PO (16:20)
[2021-05-11] MEDS ORDERED: LEVO500T4 PO (10:05)
[2021-05-11] MEDS ORDERED: PRED20TA PO (10:06)
[2021-05-19] MEDS ORDERED: LEVO500T4 PO (13:12)
[2021-05-31] MEDS ORDERED: ONDA-83 PO ×2 (10:17→14:17)
[2021-06-03] MEDS ORDERED: SUCR1ORA2 PO (09:48)
[2021-06-09] MEDS ORDERED: LEVO50TA5 PO (09:26)
[2021-07-07] MEDS ORDERED: DRON2.5C11 PO (10:29)
[2021-07-07] MEDS ORDERED: LEVO50TA5 PO ×2 (11:30→14:28)
[2021-07-07] MEDS ORDERED: LEVO75TA4 PO (17:40)
== END 2021-04-27 ==
LOC: M ONCR 09:45
PROVIDERS: ATTEND General Practice
DX: Z51.0 Encounter for antineoplastic radiation therapy (principal); C34.12 Malignant neoplasm of upper lobe, left bronchus or lung; C79.51 Secondary malignant neoplasm of bone

== ENCOUNTER 2021-05-26 03:16 | Inpatient (IN) | payer MEDICARE, MEDICAID ==
[~2021-05-26] VITALS: Ht 152.4 cm; Wt 51.6 kg
[~2021-05-26 03:16] MED LIST changes: +LEVO500T3 PO; -OMEP-173; -OMEP-173 PO; +OMEP-218; +OMEP-218 PO; +PROC10TA4 PO; -PROC10TA5 PO
[2021-05-26 05:28] LABS: BASO # 0.1 10^3/uL (0.0-0.2); BASO % 0.8 % (0.0-1.0); EOS # 0.5 10^3/uL (0.0-0.5); EOS % 5.9 % (0.0-3.0); HEMATOCRIT 38.5 % (36.0-47.0); LYMPH # 0.6 10^3/uL (1.5-5.0); LYMPH % 7.8 % (24.0-44.0); MEAN CORPUSCULAR HEMOGLOBIN 31.1 pg (27.0-33.0); MEAN CORPUSCULAR HGB CONC 31.2 g/dl (32.0-36.5); MEAN CORPUSCULAR VOLUME 99.7 fl (80.0-96.0); MONO # 0.7 10^3/uL (0.0-0.8); MONO % 8.6 % (2.0-8.0); NEUTROPHILS # 6.1 10^3/uL (1.5-8.5); NEUTROPHILS % 76.5 % (36.0-66.0); PLATELET COUNT, AUTOMATED 246 10^3/uL (150-450); RED BLOOD COUNT 3.86 10^6/uL (4.00-5.40); WHITE BLOOD COUNT 7.9 10^3/uL (4.0-10.0)
[2021-05-26 06:00] LABS: ALBUMIN 3.2 GM/DL (3.2-5.2); ALT/SGPT 14 U/L (12-78); BILIRUBIN,DIRECT 0.1 MG/DL (0.0-0.2); BILIRUBIN,TOTAL 0.3 MG/DL (0.2-1.0); BLOOD UREA NITROGEN 6 MG/DL (7-18); CALCIUM LEVEL 8.4 MG/DL (8.8-10.2); CARBON DIOXIDE LEVEL 32 MEQ/L (21-32); CHLORIDE LEVEL 100 MEQ/L (98-107); CREATININE FOR GFR 0.64 MG/DL (0.55-1.30); GLOMERULAR FILTRATION RATE > 60.0 (>45); GLUCOSE, FASTING 72 MG/DL (70-100); LIPASE 40 U/L (73-393); POTASSIUM SERUM 3.4 MEQ/L (3.5-5.1); SODIUM LEVEL 138 MEQ/L (136-145); TOTAL PROTEIN 5.9 GM/DL (6.4-8.2)
[2021-05-26 06:13] LABS: CK-MB VALUE MASS 1.1 NG/ML (<3.6); MB/CK RELATIVE INDEX 4.07 (< OR =4)
[2021-05-26] MEDS ORDERED: PROMETHAZINE INJ 25 MG/ML VIAL (J2550) IV ONE (06:15)
[2021-05-26] MEDS ORDERED: ISOVUE-370 76% 100ML VIAL As Ordered ONE (06:24)
[2021-05-26 07:44] LABS: RSV AMPLIFICATION NEGATIVE (NEGATIVE)
--- NOTE | 2021-05-26 08:17 | REPVR ---
PROCEDURE INFORMATION: Exam: CT Abdomen And Pelvis Without Contrast Exam date and time: 05/26/2021 6:12 AM Age: 66 years old Clinical indication: Nausea and vomiting; Additional info: Cough, dx of pna TECHNIQUE: Imaging protocol: Computed tomography of the abdomen and pelvis without contrast. Radiation optimization: All CT scans at this facility use at least one of these dose optimization techniques: automated exposure control; mA and/or kV adjustment per patient size (includes targeted exams where dose is matched to clinical indication); or iterative reconstruction. COMPARISON: 1. MRI ABD W/O FOL WITH 04/12/2021 10:[address] ABD PELVIS W/O FOL BY WIT 12:04 PM 03/31/2021 FINDINGS: Liver: There are no focal liver lesions present, no mass is identified. Gallbladder and bile ducts: The gallbladder is normal. Pancreas: The pancreas is normal. Spleen: The spleen is normal. Adrenal glands: The adrenal glands are normal. Kidneys and ureters: Complex process of the right lateral kidney is again seen with an exophytic hypodense cyst measuring about 12 mm on axial image 33 and a deeper ill-defined structure on noncontrast images which showed enhancement on previous arterial and venous phase CT of 03/31/2021 but washout on 5 minutes images suspicious for neoplasm. There was striking low T2 signal on coronal image 201:20 of the recent MRI with poor enhancement on postcontrast MRI images suggesting presence of blood elements. There is no increase in density on today's noncontrast CT or the preliminary noncontrast CT of 03/31/2021. Bilateral prominence of the renal pelves can be seen without ureteral dilatation or distal obstruction. Stomach and bowel: Mild diverticulosis is present in the sigmoid and descending colon. Bowel contrast reaches the colon.There is no free intraperitoneal air. Appendix: A normal appendix is identified. Intraperitoneal space: Unremarkable. No free air. No significant fluid collection. Vasculature: The vasculature demonstrates diffuse moderate atherosclerotic calcification. Lymph nodes: Unremarkable. No enlarged lymph nodes. Urinary bladder: Unremarkable as visualized. Reproductive: Unremarkable as visualized. Bones/joints: A left convex spinal curvature is observed. There is unilateral left spondylolysis at L5. There is no spondylolisthesis. There is no lumbar nerve root compression. Soft tissues: See "Bones/joints" finding. IMPRESSION: 1. Complex process of the right lateral kidney is again seen with an exophytic hypodense cyst measuring about 12 mm on axial image 33 and a deeper ill-defined structure on noncontrast images which showed enhancement on previous arterial and venous phase CT of 03/31/2021 but washout on 5 minutes images suspicious for neoplasm. There was striking low T2 signal on coronal image 201:20 of the recent MRI with poor enhancement on postcontrast MRI images suggesting presence of blood elements. There is no increase in density on today's noncontrast CT or the preliminary noncontrast CT of 03/31/2021. 2. Bilateral prominence of the renal pelves can be seen without ureteral dilatation or distal obstruction. 3. There is unilateral left spondylolysis at L5. There is no spondylolisthesis. There is no lumbar nerve root compression. Electronically signed by: César Vázquez On 05/26/2021 08:15:53 AM
--- NOTE | 2021-05-26 08:26 | REPVR ---
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 Recent chest CT report of 03/19/2021 is not available but has been requested. TECHNIQUE: Imaging protocol: Diagnostic computed tomography of the chest without contrast. Radiation optimization: All CT scans at this facility use at least one of these dose optimization techniques: automated exposure control; mA and/or kV adjustment per patient size (includes targeted exams where dose is matched to clinical indication); or iterative reconstruction. COMPARISON: CT Chest with contrast 03/19/2021 1:01 PM FINDINGS: Tubes, catheters and devices: A right infusion port is present. Thyroid: The thyroid gland is normal. Lungs: There is constriction of the bronchus to the left upper lobe on coronal images 64 and 65 as also seen on axial images 38 through 34 surrounded by soft tissue mass. Areas of scarring are seen in the left upper lobe and there are peripheral bullous changes at the apex. There is no definite pneumonia. There are postsurgical changes of the right upper lobe extending along the major fissure laterally. There is moderate volume loss and expansion of the right middle lobe. Pleural spaces: There is increased pleural thickening at the left base posteriorly and of the left major fissure defining a partially contracted left lower lobe. Possibility of pleural fluid could be considered. Heart: Unremarkable. No cardiomegaly. No pericardial effusion. Aorta: Unremarkable. No aortic aneurysm. Lymph nodes: There appears to be adenopathy of the left hilum which is difficult to accurately assess on this noncontrast study. Differentiating mass from adenopathy is difficult on the previous studies were contrast was employed, however. Depending on treatment plans, PET CT could be helpful. Bones/joints: There is post-traumatic sclerosis of the left scapula with evidence of a mid glenoid fracture on axial image 1. There is mild sclerosis of the adjacent humeral head possibly reflecting a bone infarct. Soft tissues: Unremarkable. Other findings: The vasculature demonstrates diffuse moderate atherosclerotic calcification. IMPRESSION: 1. There is post-traumatic sclerosis of the left scapula with evidence of a mid glenoid fracture on axial image 1. There is mild sclerosis of the adjacent humeral head possibly reflecting a bone infarct. 2. There is increased pleural thickening at the left base posteriorly and of the left major fissure defining a partially contracted left lower lobe. Possibility of pleural fluid could be considered. 3. There is constriction of the bronchus to the left upper lobe on coronal images 64 and 65 as also seen on axial images 38 through 34 surrounded by soft tissue mass. Areas of scarring are seen in the left upper lobe and there are peripheral bullous changes at the apex. There is no definite pneumonia. 4. There are postsurgical changes of the right upper lobe extending along the major fissure laterally. There is moderate volume loss and expansion of the right middle lobe. 5. There appears to be adenopathy of the left hilum which is difficult to accurately assess on this noncontrast study. Differentiating mass from adenopathy is difficult on the previous studies were contrast was employed, however. Depending on treatment plans, PET CT could be helpful. Electronically signed by: César Vázquez On 05/26/2021 08:25:47 AM
[2021-05-26] MEDS ORDERED: NS 1,000 ML IV ONE (08:35)
[2021-05-26] MEDS: ATORVASTATIN 20 MG TAB PO SCH ×2 (09:00→16:46)
[2021-05-26] MEDS: amLODIPine 5 MG TAB PO SCH ×3 (09:00→21:33)
[2021-05-26] MEDS: MODAFINIL 100 MG TABLET PO SCH (09:00)
[2021-05-26] MEDS ORDERED: ASPI81CH33 PO (09:38)
[2021-05-26] MEDS ORDERED: DRON2.5C11 PO (09:38)
[2021-05-26] MEDS ORDERED: LEVO750T13 PO (09:39)
[2021-05-26] MEDS ORDERED: MODA100T13 PO (09:50)
[2021-05-26] MEDS ORDERED: VENTAER INH (09:52)
[2021-05-26] MEDS ORDERED: OXYC-141 PO (09:52)
[2021-05-26] MEDS ORDERED: MUCI1TAB18 PO (09:56)
[2021-05-26] MEDS ORDERED: PRED5TA PO (09:56)
[2021-05-26] MEDS ORDERED: FISH1000 PO (09:56)
[2021-05-26] MEDS ORDERED: CENT1TAB9 PO (09:56)
[2021-05-26] MEDS ORDERED: AMLO1TAB24 PO (09:58)
[2021-05-26] MEDS ORDERED: SERT50TA29 PO (09:58)
[2021-05-26] MEDS ORDERED: MED NOTE (10:00)
[2021-05-26] MEDS ORDERED: HOME MED LIST COMPLETE! XX SCH (10:05)
[2021-05-26] MEDS ORDERED: POTASSIUM CHLORIDE 10% LIQ 20 MEQ/15 ML UDC PO ONE (10:50)
[2021-05-26] MEDS ORDERED: METOCLOPRAMIDE INJ 10MG/2ML VIAL (J2765 PER 1) IV PRN (10:55)
[2021-05-26] MEDS ORDERED: oxyCODONE 10 MG CR TAB PO PRN (11:15)
[2021-05-26] MEDS ORDERED: ALBUTEROL 90 MCG/ACT 8GM HFA INHALER INH PRN (11:15)
[2021-05-26] MEDS ORDERED: GABAPENTIN 300 MG CAP PO PRN (11:15)
[2021-05-26] MEDS ORDERED: KCL 10MEQ/100ML SWI (KRUN) 10 MEQ in IV 1 EA IV ONE (11:25)
[2021-05-26] MEDS: ACETAMINOPHEN TAB 650MG DOSE (2X325MG) PO PRN (11:48)
[2021-05-26 13:01] LABS: CORTISOL AM 12.4 UG/DL (4.3-22.4)
--- NOTE | 2021-05-26 13:01 | HPEPDOC ---
General Date of Admission Date of Service: May 26, 2021 Attending Physician: CLIF PALMA MD Chief Complaint The patient is a 66-year-old female admitted with a reason for visit of Nausea/Vomiting. History of Present Illness CHIEF COMPLAINT: Intractable Nausea and vomiting HISTORY OF PRESENT ILLNESS: Patient presents to [facility] ER with chief complaint of intractable nausea with vomi ting. 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 She underwent palliative RT to the left shoulder 20 Gy in 5 fractions 11/27/20-12/04/20 as well as 30 Gy in 10 fractions to the left hemithoracic disease concurrent with chemotherapy 12/17/20- 12/31/20. She states that for the past 7 days, she's had increased nausea and vomiting despite her zofran 8mg PO daily. She states she's had voluminous amounts of vomitus but states that she tries to replete her PO fluid intake afterwards. Along the same timeline, she has had increased generalized weakness, fatigue and body aches. She has chronic orthopnea and paroxysmal nocturnal dyspnea but she reports that she has increased shortness of breath that deviates form her baseline. She's oxygen dependent on 3L at home usually but she had to turn it up to 4L to breath comfortably. She also has had an increased cough productive of melba brown sputum. She finished a course of levaquin earlier this month, but she states that it did not resolve her cough. She also has felt feverish and shaking chills, but denies any unintentional weight loss. She has decreased her PO intake in the last 3 days but states that prior to that she's been eating full meals 3x per day. She states that the reason she had decreased her PO intake was that the food irritates her stomach which feels like a burning sensa tion. In terms of her L scapular pain, she states it is increased and currently on reirradiation of left shoulder metastasis concurrent with PCI 30 Gy in 5 fractions with radiation oncology. She's also on oxycodone and with the combination of radiation, her pain is currently controlled. She is not a fan of opioid pain meds and is apprehensive about any further increase in her oxycodone. She denies any increased lower extremity edema that deviates from her baseline. She denies any chest pain, diarrhea. PAST MEDICAL HISTORY: 1. Pituitary adenoma, status post radiation. 2. Right upper lung carcinoma, status post VATS. 3. Chronic obstructive pulmonary disease. 4. Coronary artery disease, on Aspirin 81 mg daily. 5. Gastroesophageal reflux disease. 6. Hypertension. 7. Hyperlipidemia. 8. Adrenal insufficiency, on low dose, 5 mg Prednisone daily. 9. TIA. 10. History of adrenal insufficiency FAMILY HISTORY: Father: coronary artery disease, valvular heart disease. Mom: hypertension, hyperlipidemia, brain tumor, bilateral breast cancer, smoker, lung cancer. SOCIAL HISTORY: The patient quit smoking in 2012. Prior to that she smoked one pack per day since 17 years of age. She denies alcohol use or illicit drug use. 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 pt had a cockatiel as pet for the past 8 years ALLERGIES: 1. Sulfa. 2. Sulfonamide. 3. Antibiotics. 4. Codeine. 5. Morphine. 6. Oxycodone. Intolerance to all above due to significant nausea and mild hives. REVIEW OF SYSTEMS: Constitutional: Denies fever, chills, shaking chills. Denies unintentional weight loss Decreased appetite. HEENT: Denies headache, head injury, neck pain, decreased hearing, vision changes, nasal discharge, nosebleeds, hoarseness, sore throat, lumps and bumps in the neck region. Respiratory: Increased cough productive of rust sputum. Denies hemoptysis. Increased shortness of breath and sharp pains with inspiration and coughing in the L chest area radiating to the scapula and down the L arm Cardiovascular: positive for chest discomfort that is sharp in nature when she coughs or inspires, Denies any palpitations, or increased swelling in her extremities. + PND and orthopnea GI: significant nausea and vomiting. Denies any changes in bowel habits, rectal bleeding, constipation, diarrhea. She does have loss of appetite. Abdominal pain burning in sensation. Musculoskeletal: She does have significant amount of L sharp shoulder pain that radiates down her left arm as well as to the back of her scapula. There is no increased swelling in the clavicular region on her left side. There is no redness or warmth to her joints on that side. Neurological: Denies any fainting, seizures, numbness, tingling, tremors, dizziness, or fainting. Endocrine: Denies any perfuse sweating, frequent urination or thirst. PHYSICAL EXAMINATION: VITAL SIGNS: See below GENERAL APPEARANCE: cachetic, frail appearing female. Her hair has fallen out from radiation. She's malnourished and dehydrated. AAOx3 NEURO: No focal deficits. Very pleasant and cooperative and conversational. HEENT: Her pupils are reactive to light, symmetric bilaterally. dry mucous membranes. Her tongue is midline. NECK: Cannot appreciate thyromegaly or significant lymphadenopathy in the cervical region, supraclavicular region or axillary region. LUNGS: No significant wheezing, rhonci, or rales appreciated. There is no dulln ess to percussion. No retractions appreciated. CARDIAC: Sinus rhythm with a heart rate of 80s. Normal S1, S2. Did not appreciate any significant murmurs, rubs or gallops. Her PMI is not displaced. There is no JVP and no peripheral edema. ABDOMEN: Soft, nondistended, normoactive bowel sounds. Tender on palpation. Unable to appreciate organomegaly due to pain on palpation and could not assess further. No bruits auscultated over the abdomen. SKIN: There is no clubbing, no cyanosis appreciated. No decubitus ulcers. She does have bruises in the right arm from IV lines as well as a bruise on her abdomen from subcutaneous shots. There is no livida reticularis on the skin of her lower extremities. I did not appreciate any jaundice or other rashes. MUSCULOSKELETAL/EXTREMITIES: There is soft tissue swelling in the left shoulder region underneath her clavicle on the left side. No fractures, cyanosis. Normal muscle tone. PSYCHIATRIC: She is teary eyed, alert and oriented x3, appropriate mood and affect and was conversational. IMAGING: CT abdomen and pelvis without contrast IMPRESSION: 1. Complex process of the right lateral kidney is again seen with an exophytic hypodense cyst measuring about 12 mm on axial image 33 and a deeper ill-defined structure on noncontrast images which showed enhancement on previous arterial and venous phase CT of 03/31/2021 but washout on 5 minutes images suspicious for neoplasm. There was striking low T2 signal on coronal image 201:20 of the recent MRI with poor enhancement on postcontrast MRI images suggesting presence of blood elements. There is no increase in density on today's noncontrast CT or the preliminary noncontrast CT of 03/31/2021. 2. Bilateral prominence of the renal pelves can be seen without ureteral dilatation or distal obstruction. 3. There is unilateral left spondylolysis at L5. There is no spondylolisthesis. There is no lumbar nerve root compression. CT chest without contrast IMPRESSION: 1. There is post-traumatic sclerosis of the left scapula with evidence of a mid glenoid fracture on axial image 1. There is mild sclerosis of the adjacent humeral head possibly reflecting a bone infarct. 2. There is increased pleural thickening at the left base posteriorly and of the left major fissure defining a partially contracted left lower lobe. Possibility of pleural fluid could be considered. 3. There is constriction of the bronchus to the left upper lobe on coronal images 64 and 65 as also seen on axial images 38 through 34 surrounded by soft tissue mass. Areas of scarring are seen in the left upper lobe and there are peripheral bullous changes at the apex. There is no definite pneumonia. 4. There are postsurgical changes of the right upper lobe extending along the major fissure laterally. There is moderate volume loss and expansion of the right middle lobe. 5. There appears to be adenopathy of the left hilum which is difficult to accurately assess on this noncontrast study. Differentiating mass from adenopathy is difficult on the previous studies were contrast was employed, however. Depending on treatment plans, PET CT could be helpful. IMPRESSION AND PLAN: 1. Intractable nausea. Patient recently started on immunotherapy with atezolizumab q3week. This nausea may be a side effect from this drug. Patient is on zofran on outpt regimen for nausea. She does have borderline QTc prolongation (457) and will hold off on other QTc prolonging agents, including Zofran. She was given IV phenergan in ED an one dose of reglan was administered after admission. Will order for scopolamine patch and plan for repeat EKG on 05/27 to reassess QTC. 2. CAP in an immunocompromised patient. She has increased cough productive of melba sputum. She was recently prescribed with a course of levaquin to cover for CAP on an outpt basis. Will start her on doxycycline and rocephin and obtain sputum culture for gram stain and culture. Will also order atypicals. 3. chronic obstructive pulmonary disease. Not in exacerbation. C/w with home inhalers and duonebs q6h prn for wheezing/sob. Titrate O2 to maintain SPO2 >90%. Will continue her home dose of 5mg prednisone. 4. Right upper lung carcinoma, s/p VATS. 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 Per heme/onc, she may be a candidate for peritoneal care and hospice if she does not respond to atezolizumab and CT scan shows progression. 5. Left shoulder pain. 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 Currently receiving reirradiation to the area per rad onc. 6. HTN. c/w with home med 7. History of pituritary adenoma s/p neurosurgery. Prior brain RT for her pituitary adenoma. 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 Patient has had seizures. 8. HLD. c/w home meds 9. Hypothyroidism. C/w home med 10. History of adrenal insufficiency. Will c/w prednisone. Will order am cortisol level. 11. Hypokalemia. We will replete with Domingo paris. Monitor closely 12. GERD. With her reported abdominal pain that's a burning sensation, will start Protonix IV. 13. CAD. c/w ASA and stain. 13. History of seizure. c/w gabapentin. CODE STATUS: Patient verbally and emphatically confirms to the admitting team in the ED that she wishes to be a full code. Home Medications Scheduled Amlodipine Besylate (Amlodipine Besylate) 5 Mg Tablet, 5 MG PO DAILY, (Reported) Amoxicillin/Potassium Clav (Augmentin 500-125 Tablet) 1 Each Tablet, 1 TAB PO BID Aspirin (Aspirin) 81 Mg Tab.chew, 81 MG PO DAILY, (Reported) Atorvastatin Calcium (Atorvastatin Calcium) 80 Mg Tablet, 80 MG PO DAILY, (Reported) Doxycycline Monohydrate (Doxycycline) 100 Mg Capsule, 100 MG PO BID Dronabinol (Dronabinol) 2.5 Mg Capsule, 2.5 MG PO BID, (Reported) Modafinil (Modafinil) 100 Mg Tablet, 100 MG PO DAILY, (Reported) Multivit-Min/Iron/Folic/Lutein (Centrum Silver Women Tablet) 1 Each Tablet, 1 TAB PO DAILY, (Reported) [place]-3 Fatty Acids/Fish Oil (Fish Oil 1,000 mg Capsule) 1 Each Capsule, 1 CAP PO DAILY, (Reported) Prednisone (Prednisone) 5 Mg Tablet, 5 MG PO DAILY, (Reported) Sertraline HCl (Sertraline HCl) 50 Mg Tablet, 50 MG PO DAILY, (Reported) Scheduled PRN Albuterol Sulfate (Ventolin Hfa) 18 Gm Hfa.aer.ad, 2 PUFFS INH QID PRN for SOB/WHEEZING, (Reported) Gabapentin (Gabapentin) 300 Mg Cap, 300 MG PO DAILY PRN for , (Reported) Guaifenesin/Dextromethorphan (Mucinex Dm ER 1,200-60 mg Tab) 1 Each Tab.er.12h, 1 TAB PO DAILY PRN for , (Reported) Metoclopramide HCl (Reglan) 10 Mg Tablet, 10 MG PO QIDP PRN for NAUSEA before food and bedtime Ondansetron HCl (Ondansetron HCl) 4 Mg Tablet, 8 MG PO Q6H PRN for NAUSEA OR VOMITING Oxycodone HCl (Oxycontin) 10 Mg Tab.er.12h, 10 MG PO Q12H PRN for PAIN LEVEL 5- 10, (Reported) Miscellaneous Medications [Med Note] , (Reported) STATES, SHE NEEDS TO EAT ( FULL STOMACH ) BEFORE TAKING MEDS, IF NOT SHE WILL GET SICK. Allergies Coded Allergies: Sulfa (Sulfonamide Antibiotics) (Verified Allergy, Mild, Rash, 12/14/20) codeine (Verified Adverse Reaction, Mild, N/V, 02/27/19) morphine (Verified Adverse Reaction, Mild, N/V, 02/27/19) GME ATTESTATION GME ATTESTATION My faculty preceptor for this patient encounter was physically present during the encounter and was fully available. All aspects of the patient interview, examination, medical decision making process, and medical care plan development were reviewed and approved by the faculty preceptor. The faculty preceptor is aware and concurs with the plan as stated in the body of this note and will attest to such by his/her cosignature. ATTENDING NOTE I, Clif Palma MD, have independently examined this patient and performed my o wn physical exam personally with the resident/students in the room with me, as well as reviewed the documentation and edited where necessary. I have discussed in detail with the resident / student the findings and plan of treatment as documented by the resident / student and edited their note. I agree with their findings and treatment plan and have edited their documentation. Yasmine Schumacher DO May 26, 2021 10:13 DAYSI GRAY D.O. May 26, 2021 16:52 CLIF PALMA MD May 28, 2021 14:56
[2021-05-26] MEDS: cefTRIAXone SOD 2 GM in D5W MINI-BAG PLUS 50 ML IV SCH (13:55)
[2021-05-26] MEDS: HEPARIN SOD (PORCINE) 5000UNITS/ML 1ML VIAL/SYRINGE SC SCH ×2 (14:00→21:31)
[2021-05-26] MEDS ORDERED: SCOPOLAMINE 1MG TRANSDERMAL PATCH TOP ONE (15:50)
[2021-05-26] MEDS: DRONABINOL 2.5 MG CAP (MARINOL) PO SCH ×2 (16:46→21:31)
[2021-05-26] MEDS: predniSONE 5 MG TAB PO SCH ×2 (16:46→21:32)
[2021-05-26] MEDS: ASPIRIN 81 MG CHEW TABLET PO SCH ×2 (16:46→21:32)
[2021-05-26] MEDS: PANTOPRAZOLE 40MG VIAL (C9113 PER 1) IV SCH (16:47)
[2021-05-26] MEDS: SODIUM CHLORIDE 0.9% INJ 10 ML SYR IV PRN (16:51)
[2021-05-26 17:00] VITALS: BP 120/75
[2021-05-26] MEDS ORDERED: PALONOSETRON 0.25MG/5ML VIAL (ALOXI) (FOR ONCOLOGY) IV PRN (17:20)
--- NOTE | 2021-05-26 19:41 | ECGEPIP ---
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
[2021-05-26 22:04] VITALS: BP 109/78
[2021-05-26] MEDS ORDERED: ONDANSETRON 4MG/2ML VIAL IV ONE (22:15)
[2021-05-26] MEDS ORDERED: SODIUM CHLORIDE 0.9% INJ 10 ML SYR IV PRN ×2 (22:15)
[2021-05-26] MEDS ORDERED: PROCHLORPERAZINE 10MG/2ML VIAL (J0780 PER 1) IV PRN (22:15)
[2021-05-26] MEDS: DOXYCYCLINE HYCLATE 100 MG in D5W MINI-BAG PLUS 100 ML IV SCH (22:33)
[2021-05-27 06:00] VITALS: BP 151/105
[2021-05-27] MEDS: HEPARIN SOD (PORCINE) 5000UNITS/ML 1ML VIAL/SYRINGE SC SCH ×2 (06:47→14:00)
[2021-05-27] MEDS: SODIUM CHLORIDE 0.9% INJ 10 ML SYR IV PRN ×2 (06:49→16:29)
[2021-05-27] MEDS: ACETAMINOPHEN TAB 650MG DOSE (2X325MG) PO PRN (06:52)
[2021-05-27 06:56] LABS: HEMATOCRIT 38.7 % (36.0-47.0); HEMOGLOBIN 12.2 g/dl (12.0-15.5); MEAN CORPUSCULAR HEMOGLOBIN 30.9 pg (27.0-33.0); MEAN CORPUSCULAR HGB CONC 31.5 g/dl (32.0-36.5); PLATELET COUNT, AUTOMATED 237 10^3/uL (150-450); RED BLOOD COUNT 3.95 10^6/uL (4.00-5.40); WHITE BLOOD COUNT 7.7 10^3/uL (4.0-10.0)
[2021-05-27 07:46] LABS: BLOOD UREA NITROGEN 12 MG/DL (7-18); CALCIUM LEVEL 8.1 MG/DL (8.8-10.2); CARBON DIOXIDE LEVEL 26 MEQ/L (21-32); CHLORIDE LEVEL 102 MEQ/L (98-107); CREATININE FOR GFR 0.55 MG/DL (0.55-1.30); GLOMERULAR FILTRATION RATE > 60.0 (>45); GLUCOSE, FASTING 66 MG/DL (70-100); MAGNESIUM LEVEL 2.1 MG/DL (1.8-2.4); POTASSIUM SERUM 3.5 MEQ/L (3.5-5.1); SODIUM LEVEL 137 MEQ/L (136-145)
[2021-05-27 08:50] VITALS: BP 110/68
[2021-05-27] MEDS: MODAFINIL 100 MG TABLET PO SCH (09:00)
[2021-05-27] MEDS ORDERED: SODIUM CHLORIDE 0.9% INJ 10 ML SYR IV SCH (09:00)
--- NOTE | 2021-05-27 09:08 | IPNPDOC ---
Subjective Date Seen The patient was seen on 05/27/21. Subjective Chief Complaint/HPI SUBJECTIVE: Patient was seen and examined at bedside. Patient states that she did not sleep very well last night but otherwise denies any other complaints. Her nausea has improved however she did have one episode of nausea last night. She states that she had 2 episodes of loose watery stools this morning. Denies any chest pain further shortness of breath or lower extremity edema. OBJECTIVE: VITAL SIGNS: See below GENERAL APPEARANCE: cachetic, frail appearing female. Her hair has fallen out from radiation. She's malnourished and dehydrated. AAOx3 NEURO: No focal deficits. Very pleasant and cooperative and conversational. HEENT: Her pupils are reactive to light, symmetric bilaterally. dry mucous membranes. Her tongue is midline. NECK: Cannot appreciate thyromegaly or significant lymphadenopathy in the cervical region, supraclavicular region or axillary region. LUNGS: No significant wheezing, rhonci, or rales appreciated. There is no dullness to percussion. No retractions appreciated. CARDIAC: Sinus rhythm with a heart rate of 80s. Normal S1, S2. Did not appreciate any significant murmurs, rubs or gallops. Her PMI is not displaced. There is no JVP and no peripheral edema. ABDOMEN: Soft, nondistended, normoactive bowel sounds. mildy tender on palpation.No significant organomegaly appreciated. No bruits auscultated over the abdomen. SKIN: There is no clubbing, no cyanosis appreciated. No decubitus ulcers. There is no livida reticularis on the skin of her lower extremities. I did not appreciate any jaundice or other rashes. MUSCULOSKELETAL/EXTREMITIES: There is soft tissue swelling in the left shoulder region underneath her clavicle on the left side. No fractures, cyanosis. Normal muscle tone. PSYCHIATRIC: appropriate and affect appropriate IMPRESSION AND PLAN: 1. Intractable nausea. Patient recently started on immunotherapy with atezolizumab q3week. This nausea may be a side effect from this drug. Patient is on zofran on outpt regimen for nausea. She does have borderline QTc prolongation (457) and will hold off on other QTc prolonging agents, including Zofran. She was given IV phenergan in ED an one dose of reglan was administered after admission. Will order for scopolamine patch and plan for repeat EKG on 05/27 to reassess QTC. Compazine and aloxi for n. 2. CAP in an immunocompromised patient. She has increased cough productive of melba sputum. She was recently prescribed with a course of levaquin to cover for CAP on an outpt basis. Will start her on doxycycline and rocephin and obtain sputum culture for gram stain and culture. Will also order atypicals. 3. chronic obstructive pulmonary disease. Not in exacerbation. C/w with home inhalers and duonebs q6h prn for wheezing/sob. Titrate O2 to maintain SPO2 >90%. Will continue her home dose of 5mg prednisone. 4. Right upper lung carcinoma, s/p VATS. 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 Per heme/onc, she may be a candidate for peritoneal care and hospice if she does not respond to atezolizumab and CT scan shows progression. 5. Left shoulder pain. 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 Currently receiving reirradiation to the area per rad onc. 6. HTN. c/w with home med 7. History of pituritary adenoma s/p neurosurgery. Prior brain RT for her pituitary adenoma. 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 Patient has had seizures. 8. HLD. c/w home meds 9. Hypothyroidism. C/w home med 10. History of adrenal insufficiency. Will c/w prednisone. Will order am cortisol level. 11. Hypokalemia. We will replete with K run. Monitor closely 12. GERD. With her reported abdominal pain that's a burning sensation, will start Protonix IV. 13. CAD. c/w ASA and stain. 13. History of seizure. c/w gabapentin. CODE STATUS: Patient verbally and emphatically confirms to the admitting team in the ED that she wishes to be a full code. VS, I&O, 24H, Fishbone Vital Signs/I&O Vital Signs Date Time Temp Pulse Resp B/P (MAP) Pulse Ox O2 Delivery O2 Flow Rate FiO2 05/26/21 22:04 109/78 (88) 05/26/21 17:00 97.5 72 18 100 Nasal Cannula 3.0 I&O- Last 24 Hours up to 6 AM 05/27/21 06:00 Intake Total 1250 ml Balance 1250 ml Laboratory Data 24H LABS Laboratory Tests 2 05/26/21 13:07: Procalcitonin <0.05 05/26/21 16:51: Bedside Glucose (Misc Panel) 64L 05/26/21 18:10: Methicillin-Resist S.aureus DNA PCR NOT DETECTED 05/27/21 06:20: Bedside Glucose (Misc Panel) 46L 05/27/21 06:44: 05/27/21 06:46: Nucleated Red Blood Cells % (auto) 0.0 CBC/BMP Laboratory Tests 05/27/21 06:46 Microbiology Microbiology 05/26/21 Blood Culture, Received Pending 05/26/21 Blood Culture, Received Pending GME ATTESTATION GME ATTESTATION My faculty preceptor for this patient encounter was physically present during the encounter and was fully available. All aspects of the patient interview, examination, medical decision making process, and medical care plan development were reviewed and approved by the faculty preceptor. The faculty preceptor is aware and concurs with the plan as stated in the body of this note and will attest to such by his/her cosignature. Yasmine Schumacher DO May 27, 2021 07:09
[2021-05-27] MEDS: DOXYCYCLINE HYCLATE 100 MG in D5W MINI-BAG PLUS 100 ML IV SCH (09:11)
[2021-05-27] MEDS: PANTOPRAZOLE 40MG VIAL (C9113 PER 1) IV SCH (09:12)
[2021-05-27] MEDS: ASPIRIN 81 MG CHEW TABLET PO SCH (09:14)
[2021-05-27 09:16] VITALS: BP 110/68
[2021-05-27] MEDS: DRONABINOL 2.5 MG CAP (MARINOL) PO SCH (09:16)
[2021-05-27] MEDS: ATORVASTATIN 20 MG TAB PO SCH (09:16)
[2021-05-27] MEDS: amLODIPine 5 MG TAB PO SCH (09:16)
[2021-05-27] MEDS: predniSONE 5 MG TAB PO SCH (09:16)
[2021-05-27] MEDS ORDERED: ZOFR4TAB16 PO (12:59)
[2021-05-27] MEDS ORDERED: DOXY-350 PO (12:59)
[2021-05-27] MEDS ORDERED: AUGM500T34 PO (13:03)
[2021-05-27] MEDS ORDERED: REGL10TA6 PO (13:28)
--- NOTE | 2021-05-27 13:33 | DS.PDOC ---
Discharge Summary General Date of Admission May 26, 2021 at 11:46 Date of Discharge 05/27/21 Attending Physician: CLIF PALMA MD Discharge Summary PROCEDURES PERFORMED DURING STAY: None ADMITTING DIAGNOSES / DISCHARGE DIAGNOSES: 1. Pituitary adenoma, status post radiation. 2. Right upper lung carcinoma, status post VATS. 3. Chronic obstructive pulmonary disease. 4. Coronary artery disease, on Aspirin 81 mg daily. 5. Gastroesophageal reflux disease. 6. Hypertension. 7. Hyperlipidemia. 8. Adrenal insufficiency, on low dose, 5 mg Prednisone daily. 9. TIA. 10. History of adrenal insufficiency 11. Intractable nausea and vomiting COMPLICATIONS/CHIEF COMPLAINT: Intractable nausea with vomiting HISTORY OF PRESENT ILLNESS: Patient presents to [facility] ER with chief complaint of intractable nausea with vomiting. Patient has small cell lung ca with mets to the bone (L shoulder) and is currently on atezolizumab [id number]. She underwent palliative RT to the left shoulder 20 Gy in 5 fractions 11/27/20-12/04/20 as well as 30 Gy in 10 fractions to the left hemithoracic disease concurrent with chemotherapy 12/17/20-12/31/20. She states that for the past 7 days, she's had increased nausea and vomiting despite her zofran 8mg PO daily. She states she's had voluminous amounts of vomitus but states that she tries to replete her PO fluid intake afterwards. Along the same timeline, she has had increased generalized weakness, fatigue and body aches. She has chronic orthopnea and paroxysmal nocturnal dyspnea but she reports that she has increased shortness of breath that deviates form her baseline. She's oxygen dependent on 3L at home usually but she had to turn it up to 4L to breath comfortably. She also has had an increased cough productive of melba brown sputum. She finished a course of levaquin earlier this month, but she states that it did not resolve her cough. She also has felt feverish and shaking chills, but denies any unintentional weight loss. She has decreased her PO intake in the last 3 days but states that prior to that she's been eating full meals 3x per day. She states that the reason she had decreased her PO intake was that the food irritates her stomach which feels like a burning sensation. In terms of her L scapular pain, she states it is increased and currently on reirradiation of left shoulder metastasis concurrent with PCI 30 Gy in 5 fractions with radiation oncology. She's also on oxycodone and with the combination of radiation, her pain is currently controlled. She is not a fan of opioid pain meds and is apprehensive about any further increase in her oxycodone. She denies any increased lower extremity edema that deviates from her baseline. She denies any chest pain, diarrhea. HOSPITAL COURSE: 1. Intractable nausea. Patient recently started on immunotherapy with atezolizumab q3week. This nausea may be a side effect from this drug. Patient is on zofran on outpt regimen for nausea. She does have borderline QTc prolongation (457) and will hold off on other QTc prolonging agents, including Zofran. She was given IV phenergan in ED an one dose of reglan was administered after admission. She was given Aloxi and Compazine thereafter. Upon discharge patient's nausea has improved and we will DC her home with home regimen and add on Reglan for additional 2 days. She is to follow-up with her PCP within 3 to 5 days after hospital discharge. 2. CAP in an immunocompromised patient. She has increased cough productive of melba sputum. She was recently prescribed with a course of levaquin to cover for CAP on an outpt basis. Will start her on doxycycline and rocephin and obtain sputum culture for gram stain and culture. Will also order atypicals. Upon discharge she will be discharged with p.o. doxycycline and Augmentin to take for 4 more days. Follow-up with PCP. 3. chronic obstructive pulmonary disease. Not in exacerbation. C/w with home inhalers and duonebs q6h prn for wheezing/sob. Titrate O2 to maintain SPO2 >90%. Will continue her home dose of 5mg prednisone. Upon discharge can continue with home meds and inhalers. 4. Right upper lung carcinoma, s/p VATS. Nasrin has metastatic small cell lung c ancer and is on maintenance atezolizumab every 3 weeks. Per heme/onc, she may be a candidate for peritoneal care and hospice if she does not respond to atezolizumab and CT scan shows progression. Please follow-up with heme oncology as well as radiation oncology. 5. Left shoulder pain. 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 Currently receiving reirradiation to the area per rad onc. 6. HTN. c/w with home med 7. History of pituritary adenoma s/p neurosurgery. Prior brain RT for her pituitary adenoma. 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 Patient has had seizures. No seizures during this hospitalization. Continue with home med upon discharge for 8. HLD. c/w home meds 9. Hypothyroidism. C/w home med 10. History of adrenal insufficiency. Will c/w prednisone. Will order am cortisol level. 11. Hypokalemia. We will replete with K run. Monitor closely 12. GERD. With her reported abdominal pain that's a burning sensation, will start Protonix IV. 13. CAD. c/w ASA and stain. 13. History of seizure. c/w gabapentin. CODE STATUS: Patient verbally and emphatically confirms she wishes to be a full code during this hospitalization. DVT prophylaxis Heparin DISCHARGE MEDICATIONS: Please see below. ALLERGIES: Please see below. PHYSICAL EXAMINATION ON DISCHARGE: Vitals (See below) GENERAL APPEARANCE: cachetic, frail appearing female. Her hair has fallen out from radiation. She's malnourished and dehydrated. AAOx3 NEURO: No focal deficits. Very pleasant and cooperative and conversational. HEENT: Her pupils are reactive to light, symmetric bilaterally. dry mucous membranes. Her tongue is midline. NECK: Cannot appreciate thyromegaly or significant lymphadenopathy in the cervical region, supraclavicular region or axillary region. LUNGS: No significant wheezing, rhonci, or rales appreciated. There is no dull ness to percussion. No retractions appreciated. CARDIAC: Sinus rhythm with a heart rate of 80s. Normal S1, S2. Did not appreciate any significant murmurs, rubs or gallops. Her PMI is not displaced. There is no JVP and no peripheral edema. ABDOMEN: Soft, nondistended, normoactive bowel sounds. Tender on palpation. Unable to appreciate organomegaly due to pain on palpation and could not assess further. No bruits auscultated over the abdomen. SKIN: There is no clubbing, no cyanosis appreciated. No decubitus ulcers. She does have bruises in the right arm from IV lines as well as a bruise on her abdomen from subcutaneous shots. There is no livida reticularis on the skin of her lower extremities. I did not appreciate any jaundice or other rashes. MUSCULOSKELETAL/EXTREMITIES: There is soft tissue swelling in the left shoulder region underneath her clavicle on the left side. No fractures, cyanosis. Normal muscle tone. PSYCHIATRIC: She is teary eyed, alert and oriented x3, appropriate mood and affect and was conversational. LABORATORY DATA: Please see below. IMAGING: CT abdomen and pelvis without contrast IMPRESSION: 1. Complex process of the right lateral kidney is again seen with an exophytic hypodense cyst measuring about 12 mm on axial image 33 and a deeper ill-defined structure on noncontrast images which showed enhancement on previous arterial and venous phase CT of 03/31/2021 but washout on 5 minutes images suspicious for neoplasm. There was striking low T2 signal on coronal image 201:20 of the recent MRI with poor enhancement on postcontrast MRI images suggesting presence of blood elements. There is no increase in density on today's noncontrast CT or the preliminary noncontrast CT of 03/31/2021. 2. Bilateral prominence of the renal pelves can be seen without ureteral dilatation or distal obstruction. 3. There is unilateral left spondylolysis at L5. There is no spondylolisthesis. There is no lumbar nerve root compression. ACTIVITY: [As tolerated]. DISCHARGE PLAN: Follow up with PCP within 3 to 5 days of hospital discharge Please be compliant with your antibiotics which includes doxycycline and Augmentin for another 4 days For total of 5-day course. Resume home Zofran with 2-day course of Reglan 4 times daily as needed for nausea/vomiting. Follow-up with PCP For repeat EKG to monitor QTC. Remain compliant with treatment plan and medications Please return to the ER if your symptoms resume and/or worsen. DISPOSITION: Home DISCHARGE CONDITION: [Stable]. TIME SPENT ON DISCHARGE: 35 minutes Vital Signs/I&Os Vital Signs Date Time Temp Pulse Resp B/P (MAP) Pulse Ox O2 Delivery O2 Flow Rate FiO2 05/27/21 09:16 80 110/68 05/27/21 06:00 98.5 20 100 Nasal Cannula 3.0 I&O- Last 24 Hours up to 6 AM 05/27/21 05:59 Intake Total 1250 ml Balance 1250 ml Laboratory Data Labs 24H Laboratory Tests 2 05/26/21 16:51: Bedside Glucose (Misc Panel) 64L 05/26/21 18:10: Methicillin-Resist S.aureus DNA PCR NOT DETECTED 05/27/21 06:20: Bedside Glucose (Misc Panel) 46L 05/27/21 06:44: Lactic Acid Level 0.8 05/27/21 06:46: Nucleated Red Blood Cells % (auto) 0.0, Bedside Glucose Confirm (Misc) 74, Anion Gap 9, Glomerular Filtration Rate > 60.0, Calcium Level 8.1L, Magnesium Level 2.1 05/27/21 11:44: Bedside Glucose (Misc Panel) 93 CBC/BMP Laboratory Tests 05/27/21 06:46 FSBS Laboratory Tests Test 05/26/21 16:51 05/27/21 06:20 05/27/21 11:44 Range/Units Bedside Glucose (Misc Panel) 64 46 93 80-115 MG/DL Microbiology Microbiology 05/26/21 Blood Culture, Received Pending 05/26/21 Blood Culture, Received Pending Discharge Medications Scheduled Amlodipine Besylate (Amlodipine Besylate) 5 Mg Tablet, 5 MG PO DAILY, (Reported) Amoxicillin/Potassium Clav (Augmentin 500-125 Tablet) 1 Each Tablet, 1 TAB PO BID Aspirin (Aspirin) 81 Mg Tab.chew, 81 MG PO DAILY, (Reported) Atorvastatin Calcium (Atorvastatin Calcium) 80 Mg Tablet, 80 MG PO DAILY, (Reported) Doxycycline Monohydrate (Doxycycline) 100 Mg Capsule, 100 MG PO BID Dronabinol (Dronabinol) 2.5 Mg Capsule, 2.5 MG PO BID, (Reported) Modafinil (Modafinil) 100 Mg Tablet, 100 MG PO DAILY, (Reported) Multivit-Min/Iron/Folic/Lutein (Centrum Silver Women Tablet) 1 Each Tablet, 1 T AB PO DAILY, (Reported) [place]-3 Fatty Acids/Fish Oil (Fish Oil 1,000 mg Capsule) 1 Each Capsule, 1 CAP PO DAILY, (Reported) Prednisone (Prednisone) 5 Mg Tablet, 5 MG PO DAILY, (Reported) Sertraline HCl (Sertraline HCl) 50 Mg Tablet, 50 MG PO DAILY, (Reported) Scheduled PRN Albuterol Sulfate (Ventolin Hfa) 18 Gm Hfa.aer.ad, 2 PUFFS INH QID PRN for SOB/WHEEZING, (Reported) Gabapentin (Gabapentin) 300 Mg Cap, 300 MG PO DAILY PRN for , (Reported) Guaifenesin/Dextromethorphan (Mucinex Dm ER 1,200-60 mg Tab) 1 Each Tab.er.12h, 1 TAB PO DAILY PRN for , (Reported) Metoclopramide HCl (Reglan) 10 Mg Tablet, 10 MG PO QIDP PRN for NAUSEA before food and bedtime Ondansetron HCl (Ondansetron HCl) 4 Mg Tablet, 8 MG PO Q6H PRN for NAUSEA OR VOMITING Oxycodone HCl (Oxycontin) 10 Mg Tab.er.12h, 10 MG PO Q12H PRN for PAIN LEVEL 5- 10, (Reported) Miscellaneous Medications [Med Note] , (Reported) STATES, SHE NEEDS TO EAT ( FULL STOMACH ) BEFORE TAKING MEDS, IF NOT SHE WILL GET SICK. Allergies Coded Allergies: Sulfa (Sulfonamide Antibiotics) (Verified Allergy, Mild, Rash, 12/14/20) codeine (Verified Adverse Reaction, Mild, N/V, 02/27/19) morphine (Verified Adverse Reaction, Mild, N/V, 02/27/19) GME ATTESTATION GME ATTESTATION My faculty preceptor for this patient encounter was physically present during the encounter and was fully available. All aspects of the patient interview, examination, medical decision making process, and medical care plan development were reviewed and approved by the faculty preceptor. The faculty preceptor is aware and concurs with the plan as stated in the body of this note and will attest to such by his/her cosignature. ATTENDING NOTE I, Clif Palma MD, have independently examined this patient and performed my own physical exam personally with the resident/students in the room with me, as well as reviewed the documentation and edited where necessary. I have discussed in detail with the resident / student the findings and plan of treatment as documented by the resident / student and edited their note. I agree with their findings and treatment plan and have edited their documentation. Total time spent on this discharge including ordination of care review of chart documentation and actual patient contact is around 35 minutes Yasmine Schumacher DO May 27, 2021 13:33 CLIF PALMA MD May 28, 2021 15:01
[2021-05-27 14:00] VITALS: BP 108/70
[2021-05-27] MEDS: cefTRIAXone SOD 2 GM in D5W MINI-BAG PLUS 50 ML IV SCH (15:25)
[2021-05-31] MEDS ORDERED: ONDA-83 PO ×2 (10:17→14:17)
== END 2021-05-27 16:36 | disposition home or self-care (01) | DRG 391 ==
LOC: M ED 03:16 → M ED INP 11:46 → ENRESERV 15:56 → M MSPAV 16:32
PROVIDERS: ADMIT Internal Medicine; ATTEND Internal Medicine
DX: R11.2 Nausea with vomiting, unspecified (principal); J18.9 Pneumonia, unspecified organism; C34.11 Malignant neoplasm of upper lobe, right bronchus or lung; C79.51 Secondary malignant neoplasm of bone; C79.89 Secondary malignant neoplasm of other specified sites; E27.40 Unspecified adrenocortical insufficiency; Z92.3 Personal history of irradiation; Z92.21 Personal history of antineoplastic chemotherapy; I25.10 Atherosclerotic heart disease of native coronary artery without angina pectoris; J44.9 Chronic obstructive pulmonary disease, unspecified; Z79.82 Long term (current) use of aspirin; K21.9 Gastro-esophageal reflux disease without esophagitis; I10 Essential (primary) hypertension; E78.5 Hyperlipidemia, unspecified; Z86.73 Personal history of transient ischemic attack (TIA), and cerebral infarction without residual deficits; Z87.891 Personal history of nicotine dependence; Z88.2 Allergy status to sulfonamides; Z88.1 Allergy status to other antibiotic agents; Z88.5 Allergy status to narcotic agent; E03.9 Hypothyroidism, unspecified; E87.6 Hypokalemia; G40.909 Epilepsy, unspecified, not intractable, without status epilepticus; Z79.2 Long term (current) use of antibiotics; Z79.52 Long term (current) use of systemic steroids; Z79.899 Other long term (current) drug therapy; Z20.822 Contact with and (suspected) exposure to COVID-19; G89.3 Neoplasm related pain (acute) (chronic)

== ENCOUNTER 2021-06-26 20:12 | Emergency (ER) | payer MEDICARE, MEDICAID ==
[~2021-06-26] VITALS: Ht 152.4 cm; Wt 52.3 kg
[~2021-06-26 20:12] MED LIST changes: +ASPI81CH33 PO; +AUGM500T34 PO; +CENT1TAB9 PO; +DOXY-350 PO; +FISH1000 PO; -LEVO500T3 PO; +LEVO500T4 PO; +LEVO50TA5 PO; +MED NOTE; +MUCI1TAB18 PO; +OMEP-173; +OMEP-173 PO; -OMEP-218; -OMEP-218 PO; +OXYC-141 PO; -PROC10TA4 PO; +PROC10TA5 PO; +REGL10TA6 PO; +SERT50TA29 PO; +SUCR1ORA2 PO; +ZOFR4TAB16 PO
[2021-06-26 23:05] VITALS: BP 136/74
== END 2021-06-27 03:29 | disposition home or self-care (01) ==
LOC: M ED 20:12
DX: R06.02 Shortness of breath (principal); R11.0 Nausea; U07.1 COVID-19; I10 Essential (primary) hypertension; J44.9 Chronic obstructive pulmonary disease, unspecified; E03.9 Hypothyroidism, unspecified; E78.5 Hyperlipidemia, unspecified; F33.9 Major depressive disorder, recurrent, unspecified; Z99.81 Dependence on supplemental oxygen; Z79.899 Other long term (current) drug therapy; Z79.890 Hormone replacement therapy; Z79.82 Long term (current) use of aspirin; Z79.51 Long term (current) use of inhaled steroids; Z88.1 Allergy status to other antibiotic agents; Z88.2 Allergy status to sulfonamides; Z88.5 Allergy status to narcotic agent
CPT/HCPCS: 71045; 80048; 82550; 82553; 83605; 83735; 83880; 84145; 84484; 85025; 87040; 87798; 93005; 94640; 96374; 99284; J2405

== ENCOUNTER → 2021-09-13 | Outpatient (CLI) | payer MEDICARE, MEDICAID ==
[~2021-09-13] MED LIST changes: +ISOVUE-370 76% 100ML VIAL As Ordered ONE
== END ==
LOC: M RAD 10:49
PROVIDERS: ATTEND Internal Medicine Hematology & Oncology
DX: C34.12 Malignant neoplasm of upper lobe, left bronchus or lung (principal); N28.89 Other specified disorders of kidney and ureter; I31.3 Pericardial effusion (noninflammatory)
CPT/HCPCS: 71260; 74177; J1642; Q9967

== ENCOUNTER → 2021-10-27 | Outpatient (CLI) | payer MEDICARE, MEDICAID ==
[~2021-10-27] MED LIST changes: +ATOR40TA75 PO; -ISOVUE-370 76% 100ML VIAL As Ordered ONE; +MM S100C PO; +ONDA4SOL PO; +POTA-151 PO; +SENN8.6T28 PO
== END ==
LOC: M ONCR 09:41
PROVIDERS: ATTEND General Practice
DX: C34.12 Malignant neoplasm of upper lobe, left bronchus or lung (principal); D35.2 Benign neoplasm of pituitary gland; C79.31 Secondary malignant neoplasm of brain; C79.51 Secondary malignant neoplasm of bone; Z79.82 Long term (current) use of aspirin; Z79.899 Other long term (current) drug therapy; Z85.118 Personal history of other malignant neoplasm of bronchus and lung; Z88.2 Allergy status to sulfonamides; Z88.5 Allergy status to narcotic agent; Z92.21 Personal history of antineoplastic chemotherapy; Z92.3 Personal history of irradiation

== ENCOUNTER 2022-08-30 09:41 | Emergency (ER) | payer MEDICARE, MEDICAID ==
[~2022-08-30] VITALS: Ht 152.4 cm; Wt 54.5 kg
[~2022-08-30 09:41] MED LIST changes: +ALLE24TA7 PO; +CLOP75TA99 PO; -DOXY-350 PO; +DOXY-444 PO; +LEVO1TAB39 PO; +LEVO1TAB40 PO; -LEVO500T4 PO; -LEVO750T13 PO; +NYST-38 SSP; -NYST50SS SSP; +OXYC5SOL11; +OXYC5SOL11 OR; -PLAV1TAB2 PO
[2022-08-30 12:26] LABS: BASO # 0.1 10^3/uL (0.0-0.2); EOS # 0.9 10^3/uL (0.0-0.5); EOS % 7.3 % (0.0-3.0); HEMATOCRIT 44.5 % (36.0-47.0); HEMOGLOBIN 14.4 g/dl (12.0-15.5); LYMPH # 0.8 10^3/uL (1.5-5.0); LYMPH % 6.6 % (24.0-44.0); MEAN CORPUSCULAR HEMOGLOBIN 32.1 pg (27.0-33.0); MEAN CORPUSCULAR HGB CONC 32.4 g/dl (32.0-36.5); MEAN CORPUSCULAR VOLUME 99.3 fl (80.0-96.0); MONO # 0.9 10^3/uL (0.0-0.8); MONO % 7.8 % (2.0-8.0); NEUTROPHILS # 9.1 10^3/uL (1.5-8.5); NEUTROPHILS % 76.4 % (36.0-66.0); PLATELET COUNT, AUTOMATED 361 10^3/uL (150-450); RED BLOOD COUNT 4.48 10^6/uL (4.00-5.40); WHITE BLOOD COUNT 11.9 10^3/uL (4.0-10.0)
[2022-08-30 12:47] LABS: ALBUMIN 3.4 G/DL (3.2-5.2); ALKALINE PHOSPHATASE 128 U/L (46-116); ALT/SGPT 16 U/L (7.0-40); AST/SGOT 14 U/L (<34); BILIRUBIN,TOTAL 0.4 MG/DL (0.3-1.2); BLOOD UREA NITROGEN 15 MG/DL (9-23); CALCIUM LEVEL 9.2 MG/DL (8.3-10.6); CARBON DIOXIDE LEVEL 25 MMOL/L (20-31); CHLORIDE LEVEL 107 MMOL/L (98-107); GLOMERULAR FILTRATION RATE > 60.0 (>45); GLUCOSE, FASTING 86 MG/DL (74-106); SODIUM LEVEL 143 MMOL/L (136-145); TOTAL PROTEIN 6.4 G/DL (5.7-8.2)
[2022-08-30] MEDS ORDERED: ONDANSETRON 4MG 2ML VIAL IV ONE (13:35)
[2022-08-30] MEDS ORDERED: ONDA-195 PO (15:52)
[2022-08-30 16:46] VITALS: BP 169/91
== END 2022-08-30 18:49 | disposition home or self-care (01) ==
LOC: M ED 09:41 → EDBD 09:41 → M ED 18:49
DX: R07.89 Other chest pain (principal); R11.2 Nausea with vomiting, unspecified; I10 Essential (primary) hypertension; J44.9 Chronic obstructive pulmonary disease, unspecified; Z87.891 Personal history of nicotine dependence; Z88.2 Allergy status to sulfonamides; Z88.5 Allergy status to narcotic agent; C34.90 Malignant neoplasm of unspecified part of unspecified bronchus or lung; Z79.899 Other long term (current) drug therapy; Z79.51 Long term (current) use of inhaled steroids; Z79.82 Long term (current) use of aspirin
CPT/HCPCS: 70450; 73060; 73090; 73100; 80053; 83735; 85025; 96374; 99285; J2405

== ENCOUNTER 2023-04-03 16:17 | Inpatient (IN) | payer MEDICARE, MEDICAID ==
[~2023-04-03] VITALS: Ht 152.4 cm; Wt 53.3 kg
[~2023-04-03 16:17] MED LIST changes: -GABA-283 PO; +GABA-284 PO; +ONDA-195 PO
[2023-04-03] MEDS ORDERED: NS 1,000 ML IV ONE ×2 (17:05)
[2023-04-03] MEDS ORDERED: ONDANSETRON 4MG 2ML VIAL IV ONE (17:05)
[2023-04-03] MEDS ORDERED: HYDROMORPHONE HCL 0.5 MG/ 0.5 ML SYRINGE IV ONE (17:05)
[2023-04-03] MEDS ORDERED: SODIUM CHLORIDE 0.9% INJ 10 ML SYR IV PRN (17:35)
[2023-04-03 18:09] LABS: BASO # 0.1 10^3/uL (0.0-0.2); BASO % 0.4 % (0.0-1.0); EOS # 0.1 10^3/uL (0.0-0.5); EOS % 0.6 % (0.0-3.0); HEMATOCRIT 39.3 % (36.0-47.0); HEMOGLOBIN 12.5 g/dl (12.0-15.5); LYMPH # 0.3 10^3/uL (1.5-5.0); LYMPH % 2.1 % (24.0-44.0); MEAN CORPUSCULAR HGB CONC 31.8 g/dl (32.0-36.5); MEAN CORPUSCULAR VOLUME 100.5 fl (80.0-96.0); MONO # 0.4 10^3/uL (0.0-0.8); MONO % 2.6 % (2.0-8.0); NEUTROPHILS # 13.3 10^3/uL (1.5-8.5); NEUTROPHILS % 92.3 % (36.0-66.0); PLATELET COUNT, AUTOMATED 218 10^3/uL (150-450); RED BLOOD COUNT 3.91 10^6/uL (4.00-5.40); WHITE BLOOD COUNT 14.4 10^3/uL (4.0-10.0)
[2023-04-03 18:23] LABS: INR 1.24; PROTHROMBIN TIME 15.2 SECONDS (12.5-14.5)
[2023-04-03 18:25] LABS: LIPASE 16 U/L (12-53)
[2023-04-03 18:27] LABS: CK-MB VALUE MASS < 1.0 NG/ML (<3.6)
[2023-04-03 18:27] LABS: ALBUMIN 2.2 G/DL (3.2-5.2); ALKALINE PHOSPHATASE 132 U/L (46-116); ALT/SGPT 16 U/L (7.0-40); AST/SGOT 12 U/L (<34); BILIRUBIN,DIRECT 0.1 MG/DL (<0.4); BILIRUBIN,TOTAL 0.4 MG/DL (0.3-1.2); BLOOD UREA NITROGEN 20 MG/DL (9-23); CALCIUM LEVEL 8.5 MG/DL (8.3-10.6); CARBON DIOXIDE LEVEL 29 MMOL/L (20-31); CHLORIDE LEVEL 107 MMOL/L (98-107); CREATININE FOR GFR 0.85 MG/DL (0.55-1.30); GLOMERULAR FILTRATION RATE > 60.0 (>45); GLUCOSE, FASTING 134 MG/DL (74-106); POTASSIUM SERUM 4.2 MMOL/L (3.5-5.1); SODIUM LEVEL 142 MMOL/L (136-145); TOTAL PROTEIN 4.8 G/DL (5.7-8.2)
[2023-04-03 18:28] LABS: CPK CREATINE PHOSPHOKINASE < 15 U/L (34-145)
[2023-04-03] MEDS ORDERED: cefTRIAXone SOD 1 GM in D5W MINI-BAG PLUS 50 ML IV ONE (18:40)
[2023-04-03] MEDS ORDERED: ISOVUE-370 76% 100ML VIAL As Ordered ONE (18:59)
[2023-04-03 19:09] LABS: PARTIAL THROMBOPLASTIN TIME > 240.0 SECONDS (24.8-34.2)
[2023-04-03] MEDS ORDERED: MED REC IN PROGRESS XX SCH (19:50)
[2023-04-03] MEDS ORDERED: CENT1TAB PO (21:12)
[2023-04-03] MEDS ORDERED: OMEGCAP4 PO (21:13)
[2023-04-03] MEDS ORDERED: ICOS1CAP PO (22:16)
[2023-04-03] MEDS ORDERED: FERR325T3 PO (22:19)
[2023-04-03] MEDS ORDERED: BIOFTAB PO (22:23)
[2023-04-03] MEDS ORDERED: LEVO88TA3 PO (22:25)
[2023-04-03] MEDS ORDERED: PRED10TA2 PO (22:27)
[2023-04-03] MEDS ORDERED: CIDA500T2 PO (22:30)
[2023-04-03] MEDS ORDERED: OMEP40CA5 PO (22:33)
[2023-04-03] MEDS ORDERED: OXYC1SOL3 PO (22:40)
[2023-04-03] MEDS ORDERED: SENN-186 PO (22:44)
[2023-04-03] MEDS ORDERED: HOME MED LIST COMPLETE! XX SCH (22:55)
[2023-04-03] MEDS ORDERED: METOCLOPRAMIDE INJ 10MG/2ML VIAL IV ONE (23:15)
[2023-04-04] VITALS (8 sets, daily range): BP systolic 113–150; BP diastolic 61–88; TEMP 98.1–99.5; O2SAT 86–97
[2023-04-04] MEDS ORDERED: MOM 30ML SUSPENSION UDC PO PRN (02:10)
[2023-04-04] MEDS ORDERED: MAALOX 30 ML SUSP *UDC PO PRN (02:10)
[2023-04-04] MEDS ORDERED: VITAMIN A & D OINTMENT 42.5GM TOP PRN (03:20)
[2023-04-04] MEDS ORDERED: ONDANSETRON 4MG 2ML VIAL IV PRN (03:25)
[2023-04-04] MEDS ORDERED: ALBUTEROL 90 MCG/ACT 8GM HFA INHALER INH PRN (03:25)
[2023-04-04] MEDS ORDERED: NS 1,000 ML IV SCH (03:30)
[2023-04-04] MEDS: LEVOTHYROXINE 88MCG TABLET (0.088 MG) PO SCH (06:15)
[2023-04-04] MEDS: HEPARIN SOD (PORCINE) 5000UNITS/ML 1ML VIAL/SYRINGE SC SCH ×2 (06:15→14:53)
[2023-04-04] MEDS ORDERED: ASPIRIN 81MG CHEW TABLET PO SCH (09:00)
[2023-04-04] MEDS ORDERED: OMEGA-3 1000MG CAPSULE PO SCH (09:00)
[2023-04-04] MEDS ORDERED: MULTIVITAMINS/MINERALS THERAP 1 TAB PO SCH (09:00)
[2023-04-04] MEDS: SENNA 8.6 MG TAB (SENOKOT) PO SCH (09:02)
[2023-04-04] MEDS: GABAPENTIN 300 MG CAP PO SCH (09:03)
[2023-04-04] MEDS: predniSONE 10MG TAB PO SCH (09:03)
[2023-04-04] MEDS: ACETAMINOPHEN TAB 650MG DOSE (2X325MG) PO PRN (09:05)
[2023-04-04] MEDS: FERROUS SULFATE 325MG TAB PO SCH (09:05)
[2023-04-04] MEDS ORDERED: oxyCODONE 5MG TAB PO PRN ×2 (11:00)
[2023-04-04] MEDS ORDERED: LevoFLOXacin IV 750 MG in IV 1 EA IV SCH (13:00)
[2023-04-04] MEDS ORDERED: HYOSCYAMINE SULFATE 0.125 MG SUBL TABLET PO PRN (16:05)
[2023-04-04] MEDS: SCOPOLAMINE 1MG TRANSDERMAL PATCH TOP PRN (17:25)
[2023-04-04] MEDS: ONDANSETRON 4MG ORAL DISINTEGRATING TAB PO PRN (17:25)
[2023-04-04] MEDS: MORPHINE 10MG/0.5ML ORAL CONCENTRATE SOLUTION U/D SL PRN ×2 (17:32→20:30)
[2023-04-05] MEDS: LEVOTHYROXINE 88MCG TABLET (0.088 MG) PO SCH (05:51)
[2023-04-05] MEDS: MORPHINE 10MG/0.5ML ORAL CONCENTRATE SOLUTION U/D SL PRN ×3 (05:52→18:22)
[2023-04-05] MEDS: ONDANSETRON 4MG ORAL DISINTEGRATING TAB PO PRN ×2 (05:52→18:33)
[2023-04-05] MEDS ORDERED: PROMETHAZINE 25MG/ML 1ML VIAL IV PRN (08:00)
[2023-04-05] MEDS: GABAPENTIN 300 MG CAP PO SCH (09:00)
[2023-04-05] MEDS: SENNA 8.6 MG TAB (SENOKOT) PO SCH (09:00)
[2023-04-05] MEDS: FERROUS SULFATE 325MG TAB PO SCH (09:00)
[2023-04-05] MEDS: predniSONE 10MG TAB PO SCH (09:00)
[2023-04-05] MEDS: SODIUM CHLORIDE 0.9% INJ 10 ML SYR IV SCH (09:53)
[2023-04-05] MEDS: DIMETHICONE 2% OINTMENT(VANICREAM) 70GM TUBE TOP PRN (12:12)
[2023-04-05] MEDS: SCOPOLAMINE 1MG TRANSDERMAL PATCH TOP PRN (18:34)
[2023-04-05] MEDS: diphenhydrAMINE 25MG CAP PO PRN (21:21)
[2023-04-06] MEDS: LEVOTHYROXINE 88MCG TABLET (0.088 MG) PO SCH (06:13)
[2023-04-06] MEDS: diphenhydrAMINE 25MG CAP PO PRN ×2 (06:13→14:45)
[2023-04-06] MEDS: MORPHINE 10MG/0.5ML ORAL CONCENTRATE SOLUTION U/D SL PRN ×6 (06:13→23:49)
[2023-04-06] MEDS: predniSONE 10MG TAB PO SCH (09:12)
[2023-04-06] MEDS: SENNA 8.6 MG TAB (SENOKOT) PO SCH (09:12)
[2023-04-06] MEDS: SODIUM CHLORIDE 0.9% INJ 10 ML SYR IV SCH (09:13)
[2023-04-06] MEDS: FERROUS SULFATE 325MG TAB PO SCH (09:13)
[2023-04-06] MEDS: GABAPENTIN 300 MG CAP PO SCH (09:13)
[2023-04-07] MEDS: LEVOTHYROXINE 88MCG TABLET (0.088 MG) PO SCH (05:42)
[2023-04-07] MEDS: SENNA 8.6 MG TAB (SENOKOT) PO SCH (08:44)
[2023-04-07] MEDS: GABAPENTIN 300 MG CAP PO SCH (08:44)
[2023-04-07] MEDS: predniSONE 10MG TAB PO SCH (08:44)
[2023-04-07] MEDS: FERROUS SULFATE 325MG TAB PO SCH (08:44)
[2023-04-07] MEDS: SODIUM CHLORIDE 0.9% INJ 10 ML SYR IV SCH (08:45)
[2023-04-07] MEDS: MORPHINE 10MG/0.5ML ORAL CONCENTRATE SOLUTION U/D SL PRN (08:53)
[2023-04-07] MEDS: diphenhydrAMINE 25MG CAP PO PRN ×2 (13:05→20:12)
[2023-04-07] MEDS: ANUSOL HC CREAM 30GM TOP SCH ×2 (13:09→20:13)
[2023-04-07] MEDS: ACETAMINOPHEN TAB 650MG DOSE (2X325MG) PO PRN (17:04)
[2023-04-08] MEDS: LEVOTHYROXINE 88MCG TABLET (0.088 MG) PO SCH (06:01)
[2023-04-08] MEDS: predniSONE 10MG TAB PO SCH (08:26)
[2023-04-08] MEDS: SODIUM CHLORIDE 0.9% INJ 10 ML SYR IV SCH (08:26)
[2023-04-08] MEDS: GABAPENTIN 300 MG CAP PO SCH (08:26)
[2023-04-08] MEDS: diphenhydrAMINE 25MG CAP PO PRN (08:26)
[2023-04-08] MEDS: SENNA 8.6 MG TAB (SENOKOT) PO SCH (08:26)
[2023-04-08] MEDS: FERROUS SULFATE 325MG TAB PO SCH (08:26)
[2023-04-08] MEDS: ANUSOL HC CREAM 30GM TOP SCH ×2 (08:27→20:33)
[2023-04-08] MEDS: MORPHINE 10MG/0.5ML ORAL CONCENTRATE SOLUTION U/D SL PRN ×3 (13:35→20:32)
[2023-04-09] MEDS: MORPHINE 10MG/0.5ML ORAL CONCENTRATE SOLUTION U/D SL PRN ×5 (05:11→20:12)
[2023-04-09] MEDS: LEVOTHYROXINE 88MCG TABLET (0.088 MG) PO SCH (05:11)
[2023-04-09] MEDS: FERROUS SULFATE 325MG TAB PO SCH (08:04)
[2023-04-09] MEDS: GABAPENTIN 300 MG CAP PO SCH (08:04)
[2023-04-09] MEDS: predniSONE 10MG TAB PO SCH (08:04)
[2023-04-09] MEDS: SODIUM CHLORIDE 0.9% INJ 10 ML SYR IV SCH (08:05)
[2023-04-09] MEDS: ANUSOL HC CREAM 30GM TOP SCH ×2 (08:05→20:13)
[2023-04-09] MEDS: SENNA 8.6 MG TAB (SENOKOT) PO SCH (08:07)
[2023-04-09] MEDS: ONDANSETRON 4MG ORAL DISINTEGRATING TAB PO PRN (10:34)
[2023-04-09] MEDS: diphenhydrAMINE 25MG CAP PO PRN ×2 (11:25→20:12)
[2023-04-10] MEDS: LEVOTHYROXINE 88MCG TABLET (0.088 MG) PO SCH (05:33)
[2023-04-10] MEDS: MORPHINE 10MG/0.5ML ORAL CONCENTRATE SOLUTION U/D SL PRN ×2 (05:41→10:24)
[2023-04-10] MEDS: SODIUM CHLORIDE 0.9% INJ 10 ML SYR IV SCH (10:23)
[2023-04-10] MEDS: SENNA 8.6 MG TAB (SENOKOT) PO SCH (10:24)
[2023-04-10] MEDS: predniSONE 10MG TAB PO SCH (10:24)
[2023-04-10] MEDS: GABAPENTIN 300 MG CAP PO SCH (10:24)
[2023-04-10] MEDS: FERROUS SULFATE 325MG TAB PO SCH (10:24)
[2023-04-10] MEDS: ANUSOL HC CREAM 30GM TOP SCH (10:25)
[2023-04-10] MEDS: DIMETHICONE 2% OINTMENT(VANICREAM) 70GM TUBE TOP PRN (10:28)
[2023-04-10] MEDS ORDERED: MORP1SOL5 PO (10:43)
[2023-04-10] MEDS ORDERED: HYOS125TA PO (10:43)
[2023-04-10] MEDS ORDERED: ATIV1TAB10 PO (10:43)
[2023-04-10] MEDS ORDERED: PROC1CRE5 TOP (10:43)
[2023-04-10] MEDS ORDERED: ONDA-83 PO (12:17)
== END 2023-04-10 15:12 | disposition hospice, home (50) | DRG 948 ==
LOC: M ED 16:17 → EDBD 16:17 → M ED INP 04-04 02:05 → M MSPAV 04-04 03:30
PROVIDERS: ADMIT Family Medicine; ATTEND Internal Medicine
DX: G89.3 Neoplasm related pain (acute) (chronic) (principal); C34.12 Malignant neoplasm of upper lobe, left bronchus or lung; C79.51 Secondary malignant neoplasm of bone; C64.9 Malignant neoplasm of unspecified kidney, except renal pelvis; E27.40 Unspecified adrenocortical insufficiency; J98.11 Atelectasis; E46 Unspecified protein-calorie malnutrition; Z66 Do not resuscitate; J44.9 Chronic obstructive pulmonary disease, unspecified; I25.10 Atherosclerotic heart disease of native coronary artery without angina pectoris; K21.9 Gastro-esophageal reflux disease without esophagitis; I10 Essential (primary) hypertension; E78.5 Hyperlipidemia, unspecified; E86.0 Dehydration; M84.412S Pathological fracture, left shoulder, sequela; E03.9 Hypothyroidism, unspecified; L85.3 Xerosis cutis; Z92.3 Personal history of irradiation; Z86.018 Personal history of other benign neoplasm; Z80.3 Family history of malignant neoplasm of breast; Z92.21 Personal history of antineoplastic chemotherapy; Z86.73 Personal history of transient ischemic attack (TIA), and cerebral infarction without residual deficits; Z87.891 Personal history of nicotine dependence; Z20.822 Contact with and (suspected) exposure to COVID-19; Z79.82 Long term (current) use of aspirin; Z79.890 Hormone replacement therapy; Z79.52 Long term (current) use of systemic steroids; Z79.899 Other long term (current) drug therapy; Z88.2 Allergy status to sulfonamides; Z88.5 Allergy status to narcotic agent; R62.7 Adult failure to thrive